=== PATIENT | female | born 1945 | race Caucasian/White ===

== ENCOUNTER 2017-02-22 16:15 | Inpatient (IN) | payer OTHER, MEDICARE ==
[~2017-02-22] VITALS: Ht 167.6 cm; Wt 93.5 kg
[~2017-02-22 16:15] MED LIST: CIPRO500 M1 PO
[2017-02-22 16:41] LABS: ABSOLUTE BASOPHIL COUNT 0 /CUMM (0.0-0.2); ABSOLUTE EOSINOPHIL COUNT 0 /CUMM (0.0-0.7); ABSOLUTE GRANULOCYTE CT 22.3 /CUMM (1.4-6.5); ABSOLUTE LYMPH COUNT 0.4 /CUMM (1.2-3.4); ABSOLUTE MONOCYTE COUNT 0.2 /CUMM (0.10-0.60); BASOPHIL % 0 % (0.0-2.0); EOSINOPHIL % 0.1 % (0-5); HEMATOCRIT 30.7 % (37-47); MEAN CORPUSCULAR HGB 25.5 PG (27.0-31.0); MEAN CORPUSCULAR HGB CONC 31.6 G/DL (33.0-37.0); MEAN CORPUSCULAR VOLUME 80.6 FL (81.0-99.0); MEAN PLATELET VOLUME 7.3 FL (7.4-10.4); PLATELET COUNT 497 /CUMM (130-400); RBC DISTRIBUTION WIDTH 17.1 % (11.5-14.5); WHITE BLOOD CELL COUNT 22.9 /CUMM (4.8-10.8)
[2017-02-22 16:43] LABS: GRANULOCYTE % 97.4 % (42.2-75.2)
--- NOTE | 2017-02-22 16:52 | ED GENERAL ADULT ---
History of Present Illness General Chief Complaint: Fever Stated Complaint: WEAKNESS, FEVERS Source: patient Exam Limitations: no limitations Vital Signs & Intake/Output Vital Signs & Intake/Output Vital Signs Date Time Temp Pulse Resp B/P B/P Pulse O2 O2 Flow FiO2 Mean Ox Delivery Rate 02/22 2046 98.5 86 23 116/61 93 Room Air 02/22 2015 98.7 02/22 1950 Room Air 02/22 1908 99.2 93 22 114/62 96 Room Air 02/22 1752 101.4 02/22 1747 99.0 02/22 1713 99 Room Air 02/22 1658 99.0 130 20 134/60 99 Room Air 02/22 1647 99.0 130 22 134/60 99 Room Air Allergies Coded Allergies: shrimp (Severe, SEVERE HIVES 12/29/16) Reconcile Medications No Known Home Medications Triage Note: PT BIBA FROM HOME FOR WEAKNESS FOR 2 WEEKS WITH BURNING WITH URINATION FOR "MONTH" PT STATES SHE WILL BECOME WOB ON EXERTION BUT IS NO DYSPNEIC AT THIS TIME. PT DENIES CHEST PAIN, PT IS ALERT AND ORIENTED Triage Nurses Notes Reviewed? yes Onset: Gradual Duration: day(s): (34), constant, continues in ED, getting worse Timing: single episode today Injury Environment: home Severity: moderate, severe No Modifying Factors: none LMP (ages 10-50): post menopausal, unknown : No Patient currently breastfeeds: No HPI: 71-year-old female with no reported past medical history presents for evaluation of fever, weakness and dysuria. Patient states the symptoms have been occurring over the past month but much worse over the past few days. She reports burning on urination and urinary frequency and urgency. She also reports sweats chills and body aches. She denies any chest pain, abdominal pain, shortness of breath. No nausea vomiting or diarrhea. She lives at home. She does not take any medications. She denies any back pain. She's not taking any medicine for her symptoms. She is not seen her doctor in years. (Greg Matta) Past History Medical History Any Pertinent Medical History? 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 No (Greg Matta) ED Sepsis Exam Date of Focused Sepsis Exam: 02/22/17 Time of Focused Sepsis Exam: 1800 Sepsis Cardiac Exam: Tachycardia Sepsis Resp Exam: CTA Sepsis Cap Refill Exam: <2 Sec Sepsis Peripheral Pulse Exam: Normal Sepsis Peripheral Pulse Location: Radial Sepsis Skin Color Exam: Pale Skin Temp/Moisture Exam: Warm/Dry (Greg Matta) Review of Systems Review of Systems Constitutional: Reports: fever, malaise, weakness. EENTM: Reports: no symptoms. Respiratory: Reports: no symptoms. Cardiovascular: Reports: no symptoms. GI: Reports: no symptoms. Genitourinary: Reports: see HPI, dysuria, frequency, urgency. Musculoskeletal: Reports: no symptoms. Skin: Reports: no symptoms. Neurological/Psychological: Reports: no symptoms. Hematologic/Endocrine: Reports: no symptoms. Immunologic/Allergic: Reports: no symptoms. All Other Systems: Reviewed and Negative (Greg Matta) Physical Exam Physical Exam General Appearance: well developed/nourished, no apparent distress, alert, awake Head: atraumatic, normal appearance Eyes: Bilateral: normal appearance, PERRL, EOMI. Ears, Nose, Throat: normal pharynx, normal ENT inspection, hearing grossly normal Neck: normal inspection, supple, full range of motion Respiratory: normal breath sounds, chest non-tender, no respiratory distress, lungs clear Cardiovascular: regular rate/rhythm, normal peripheral pulses Peripheral Pulses: 2+ radial (R), 2+ radial (L) Gastrointestinal: normal bowel sounds, soft, non-tender, no organomegaly Rectal: THERE IS MACERATED ERYTHEMATOUS SKIN THE THE SKIN FOLDS OF THE BUTTOCKS. THERE ARE SOME SUPERFICAL PRESSURE ULCCERATIONS IN THE SACRAL AREA. NO SOUROUNDING ERYTHEMA PAIN WITH PALPATION OR DISCHARGE. Back: normal inspection, normal range of motion, no vertebral tenderness Extremities: normal inspection, normal range of motion, BILATERAL OOWER EXTREMITIES HAVE 2+ PITTING EDEMA. NO CALF TENDERNESS Neurologic/Psych: no motor/sensory deficits, awake, alert, oriented x 3 Skin: intact, normal color, warm/dry Core Measures ACS in differential dx? No CVA/TIA Diagnosis: No Sepsis Present: Yes Sepsis Focused Exam Completed? Yes (Greg Matta) Progress Differential Diagnoses I considered the following diagnoses in my evaluation of the patient: [Sepsis, cystitis, pneumonia, cellulitis, electrolyte abnormality] Plan of Care: Orders Procedure Date/time Status Regular Diet 02/23 B Active CBC WITHOUT DIFFERENTIAL 02/23 06 Active BASIC ELECTROLYTES PLUS BUN&CR 02/23 0600 Active Teach/Educate 02/22 2127 Active Pain Treatment and Response 02/22 2127 Active Nutritional Intake, Monitor 02/22 2127 Active Isolation 02/22 2127 Active Patient Care Conference 02/22 2127 Active Activity/Ambulation 02/22 2127 Active Code Status 02/22 2034 Active Pathway - chart 02/22 1943 Active House Staff 02/22 194 Active Patient Data 02/22 194 Active Code Status 02/22 194 Complete Patient Data 02/22 1935 Active LACTIC ACID 02/22 1923 Active ED Holding Orders 02/22 1921 Active Admit to inpatient 02/22 192 Active Vital Signs 02/22 192 Active Code Status 02/22 192 Complete Add-on Test (ER Only) 02/22 1813 Active Intake & Output 02/22 1748 Active CULTURE,URINE 02/22 1733 Active Add-on Test (ER Only) 02/22 1649 Active URINALYSIS 02/22 1633 Complete EKG 02/22 1632 Active TROPONIN LEVEL 02/22 1630 Complete B-TYPE NATRIURETIC PEP (BNP) 02/22 1630 Complete BLOOD CULTURE 02/22 1625 Active LACTIC ACID 02/22 1624 Complete COMPREHENSIVE METABOLIC PANEL 02/22 1624 Complete CBC WITHOUT DIFFERENTIAL 02/22 1624 Complete VTE Mechanical Prophylaxis 02/22 UNK Active Current Medications Sig/Jacobo Start time Last Medication Dose Stop Time Status Admin Ceftriaxone Sodium 1,000 MG DAILY 02/23 1000 AC (Rocephin) Heparin Sodium 25,000 UNIT Q24H 02/22 2215 AC (Porcine) (Heparin) Sodium Chloride 500 ML Acetaminophen 650 MG Q8 02/22 2200 AC (Tylenol) Heparin Sodium 5,000 UNIT Q8 02/22 220 AC (Porcine) Laboratory Tests 02/22/17 1733: Urinalysis LIGHT H, Urine Color YEL, Urine Clarity TURBD H, Urine pH 7.0, Ur Specific [place] 1.020, Urine Protein 100 H, Urine Ketones TRACE H, Urine Nitrite POS H, Urine Bilirubin NEG@ICTO, Urine Urobilinogen 4.0 H, Ur Leukocyte Esterase LARGE H, Ur Microscopic SEDIMENT EXAMINED, Urine RBC 50-75 H, Urine WBC PACKD H, Ur Epithelial Cells MOD H, Urine Bacteria PACKD H, Urine Mucus FEW, Urine Hemoglobin LARGE H, Urine Glucose NEG 02/22/17 1632: Troponin I Cancelled 02/22/17 1630: Anion Gap 17 H, Estimated GFR 44 L, BUN/Creatinine Ratio 20.8, Glucose 108 H, Lactic Acid 2.6 H, Calcium 9.0, Total Bilirubin 1.0, AST 26, ALT 27, Alkaline Phosphatase 126, Troponin I 0.06, Irp-V-Cddzgukpehp Pept 2730 H, Total Protein 6.3, Albumin 2.9 L, Globulin 3.4, Albumin/Globulin Ratio 0.9 L, CBC w Diff MAN DIFF ORDERED, RBC 3.80 L, MCV 80.6 L, MCH 25.5 L, RDW 17.1 H, MPV 7.3 L, Gran % 97.4 H, Lymphocytes % 1.6 L, Monocytes % 0.9 L, Eosinophils % 0.1, Basophils % 0, Absolute Granulocytes 22.3 H, Segmented Neutrophils 94 H, Band Neutrophils 1, Absolute Lymphocytes 0.4 L, Lymphocytes 4 L, Monocytes 1 L, Absolute Monocytes 0.2, Absolute Eosinophils 0, Absolute Basophils 0, Platelet Estimate VERIFIED BY SMEAR, Normochromic RBCs VERIFIED, Anisocytosis 1+, PUBS MCHC 31.6 L, Fld Total RBCs Counted 100 Microbiology 02/22 1733 URINE ROUT: Urine Culture - RECD 02/22 1630 BLOOD: Blood Culture - RECD 02/22 1615 BLOOD: Blood Culture - RECD Patient seen and evaluated. She currently is febrile to 101 and tachycardic. She has very foul-smelling purulent appearing urine. Suspect urosepsis. Blood and urine cultures sent patient started on fluids and IV Tylenol. She is awake blood cell count of 23,000 and an elevated lactic acid. Her chest x-ray is clear. She has some mild renal insufficiency. Urine is showing multiple signs of infection culture added. Patient will be covered with ceftriaxone. She required admission to the hospital for treatment of sepsis. Case discussed with Dr. MCGEE AND LEIDA TheY agrees. Diagnostic Imaging: Viewed by Me: Radiology Read. Discussed w/RAD: Radiology Read. CXR Impression: PATIENT: SIMBA PINEDA PRESENT AGE : 71 PATIENT ACCOUNT NO: [id number] : 45 LOCATION: [facility] ORDERING PHYSICIAN: Greg HA SERVICE DATE: 02/22/17 EXAM TYPE: RAD - XRY- PORTABLE CHEST XRAY EXAMINATION: XR PORTABLE CHEST CLINICAL INFORMATION: Fever. COMPARISON: None TECHNIQUE: Portable frontal view of the chest was obtained. 5: 35 PM FINDINGS: Lungs are clear. No pulmonary vascular congestion. There is no pleural effusion. The heart size is normal. The cardiac and mediastinal contours are normal. There are multilevel degenerative changes of dorsal spine. IMPRESSION: Unremarkable examination. DICTATED BY: Moose Wilosn MD DATE/TIME DICTATED:02/22/171757 SENIOR ELECTRICAL ENGINEER:BIANCA DATE/TIME TRANSCRIBED:1757 CONFIDENTIAL, DO NOT COPY WITHOUT APPROPRIATE AUTHORIZATION. Initial ED EKG: SINUS TACH, RBBB, LAFB (Greg Matta) Departure Departure Disposition: STILL A PATIENT Condition: Stable Clinical Impression Primary Impression: Sepsis Qualifiers: Sepsis type: sepsis due to unspecified organism Qualified Code: A41.9 - Sepsis, unspecified organism Secondary Impressions: Acute cystitis, Lactic acid acidosis, Leukocytosis Referrals: Alexei Echevarria MD (PCP/Family) Departure Forms: Customer Survey General Discharge Information Prescriptions: Current Visit Scripts No Known Home Medications Admission Note Spoke With: Alexei Echevarria MD Documentation of Exam: Documentation of any treatments & extenuating circumstances including Concerns Regarding Discharge (functional status, medication knowledge or non-compliance, living conditions, etc.) that warrant an admission rather than observation: [ Patient is septic. She will require IV fluids, IV antibiotics, serial labs, follow-up cultures, IV antipyretics, monitoring of vital signs] (Greg Matta) PA/ASSISTANT EXECUTIVE HOUSEKEEPER Co-Sign Statement Statement: ED Attending supervision documentation- [] I saw and evaluated the patient. I have also reviewed all the pertinent lab results and diagnostic results. I agree with the findings and the plan of care as documented in the PA's/ASSISTANT EXECUTIVE HOUSEKEEPER's documentation. [X] I have reviewed the ED Record and agree with the PA's/ASSISTANT EXECUTIVE HOUSEKEEPER's documentation. [] Additions or exceptions (if any) to the PAs/ASSISTANT EXECUTIVE HOUSEKEEPER's note and plan are summarized below: [] (Leida ROTH,Ashley) Critical Care Note Critical Care Note Critical Care Time: non-applicable (Andrew HA,Greg)
--- NOTE | 2017-02-22 18:02 | RADIOLOGY REPORT ---
EXAMINATION: XR PORTABLE CHEST CLINICAL INFORMATION: Fever. COMPARISON: None TECHNIQUE: Portable frontal view of the chest was obtained. 5:35 PM FINDINGS: Lungs are clear. No pulmonary vascular congestion. There is no pleural effusion. The heart size is normal. The cardiac and mediastinal contours are normal. There are multilevel degenerative changes of dorsal spine. IMPRESSION: Unremarkable examination.
--- NOTE | 2017-02-22 19:37 | History & Physical ---
See Addendum Julio ROTH,Tess 02/22/171935: General Information and HPI MD Statement: I have seen and personally examined SIMBA PINEDA and documented this H&P. The patient is a 71 year old F who presented with a patient stated chief complaint of [burining urination]. Source of Information: patient Exam Limitations: no limitations History of Present Illness: The patient is 71-year-old female with past medical history of chronic bilateral lower extremity edema. She presented to [place] ED on 02/22 with presenting complaint of burning during urination and increased frequency and urgency. Patient was in usual state of health until about 2 days ago when she started experiencing generalized weakness. She had an episode of burning urination as well. Lately patient has been experiencing increased frequency and urgency. Today patient was sitting on the toilet and felt so weak that she could not lift herself up. Her brother came to check on her because she was not picking up and found her on sitting on the toilet and called ambulance. Patient also complains of lower abdominal pain which she experienced only today and has resolved after coming to ED. She endorses decreased appetite and decreased oral intake for past 2 days. No discharge or pain while urination. Denies hematuria. As per patient she hadn't been experiencing weakness and lethargy and had another episode of feeling so tired that she could not get up from the bathroom few weeks ago, she was helped up by her nephew. Denies any fevers chills nausea vomiting and change in bowel movement. Patient has chronic bilateral lower extremity edema and has never been worked up for that. Patient reports getting winded easily after exertion. Currently patient is not on any medications. Of note patient was diagnosed of UTI in December 2016 and she was treated with ciprofloxacin. She underwent CT abdomen and pelvis with IV contrast which showed multiple bilateral renal cysts, small liver cyst, osteoarthritis of the joints, several nonspecific lucencies in the spine largest measuring 9 mm in the S1. 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 Psychosocial History Where do you live? Home Who Do You Live With? self Services at Home: None Primary Language: Italian Smoking Status: Never Smoked ETOH Use: occasional use Illicit Drug Use: denies illicit drug use Functional Ability ADLs Independent: dressing, eating, toileting, bathing. Ambulation: cane IADLs Independent: shopping, housework, finances, food prep, telephone, transportation , medication admin. 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 Denies: chills, fever. Cardiovascular: Denies: chest pain, orthopena. Respiratory: Denies: see HPI, orthopnea, stridor. GI: Reports: no symptoms. Genitourinary: Reports: frequency. Denies: discharge, hematuria, hesitation, nocturia. Musculoskeletal: Reports: no symptoms. Exam & Diagnostic Data Last 24 Hrs of Vital Signs/I&O Vital Signs Date Time Temp Pulse Resp B/P B/P Pulse O2 O2 Flow FiO2 Mean Ox Delivery Rate 02/22 1908 99.2 93 22 114/62 96 Room Air 02/22 1752 101.4 02/22 1747 99.0 02/22 1713 99 Room Air 02/22 1658 99.0 130 20 134/60 99 Room Air 02/22 1647 99.0 130 22 134/60 99 Room Air Physical Exam General Appearance Alert, Oriented X3, Cooperative, No Acute Distress Skin No Rashes HEENT Atraumatic, PERRLA, dry mucous memberanes Neck Supple, No JVD, No thryomegaly Cardiovascular Normal S1, Normal S2 Lungs Clear to Auscultation, Normal Air Movement Abdomen Normal Bowel Sounds, Soft, No Tenderness, No Hepatospenomegaly Neurological Normal Speech Extremities b/l 3+ lower extremity edema, extending upto thighs, more so on R Last 24 Hrs of Labs/Caleb: Laboratory Tests 02/22/17 1733: Urinalysis LIGHT H, Urine Color YEL, Urine Clarity TURBD H, Urine pH 7.0, Ur Specific [place] 1.020, Urine Protein 100 H, Urine Ketones TRACE H, Urine Nitrite POS H, Urine Bilirubin NEG@ICTO, Urine Urobilinogen 4.0 H, Ur Leukocyte Esterase LARGE H, Ur Microscopic SEDIMENT EXAMINED, Urine RBC 50-75 H, Urine WBC PACKD H, Ur Epithelial Cells MOD H, Urine Bacteria PACKD H, Urine Mucus FEW, Urine Hemoglobin LARGE H, Urine Glucose NEG 02/22/17 1632: Troponin I Cancelled 02/22/17 1630: Anion Gap 17 H, Estimated GFR 44 L, BUN/Creatinine Ratio 20.8, Glucose 108 H, Lactic Acid 2.6 H, Calcium 9.0, Total Bilirubin 1.0, AST 26, ALT 27, Alkaline Phosphatase 126, Troponin I 0.06, Vdl-D-Swgcpajccvu Pept 2730 H, Total Protein 6.3, Albumin 2.9 L, Globulin 3.4, Albumin/Globulin Ratio 0.9 L, CBC w Diff MAN DIFF ORDERED, RBC 3.80 L, MCV 80.6 L, MCH 25.5 L, RDW 17.1 H, MPV 7.3 L, Gran % 97.4 H, Lymphocytes % 1.6 L, Monocytes % 0.9 L, Eosinophils % 0.1, Basophils % 0, Absolute Granulocytes 22.3 H, Segmented Neutrophils 94 H, Band Neutrophils 1, Absolute Lymphocytes 0.4 L, Lymphocytes 4 L, Monocytes 1 L, Absolute Monocytes 0.2, Absolute Eosinophils 0, Absolute Basophils 0, Platelet Estimate VERIFIED BY SMEAR, Normochromic RBCs VERIFIED, Anisocytosis 1+, PUBS MCHC 31.6 L, Fld Total RBCs Counted 100 Microbiology 02/22 1733 URINE ROUT: Urine Culture - RECD 02/22 1630 BLOOD: Blood Culture - RECD 02/22 1615 BLOOD: Blood Culture - RECD Diagnostic Data CXR Results FINDINGS: Lungs are clear. No pulmonary vascular congestion. There is no pleural effusion. The heart size is normal. The cardiac and mediastinal contours are normal. There are multilevel degenerative changes of dorsal spine. IMPRESSION: Unremarkable examination. Other Results CT abdomen and pelvis with IV contrast December 2016 multiple bilateral renal cysts, small liver cyst, osteoarthritis of the joints, several nonspecific lucencies in the spine largest measuring 9 mm in the S1. Assessment/Plan Assessment: The patient is 71-year-old female with past medical history of chronic bilateral lower extremity edema. She presented to [place] ED on 02/22 with presenting complaint of burning during urination and increased frequency and urgency. -VS 99.0 MAXIMUM TEMPERATURE of 101.4. Heart rate 130, BP on presentation 134/ 62 -Pertinent labs FSH 9.7/30.7 WBC count to 2.9 platelets 492 MCV , MCH 25, bands 1, anion gap 17, BUN 25 creatinine 1.2 baseline 1.0, BNP 2730, lactic acid 2.6 -UA turbid positive for nitrates and large leukoesterase packed with WBCs and bacteria moderate epithelial cells -In ED patient received 2 L of normal saline, IV Rocephin and IV Tylenol The patient is being admitted to general medicine floor and is being treated and evaluated for following conditions #Sepsis secondary to urological origin Patient presentation along with elevated white count, lactic acidosis, temperature 101.4,HR 130 plus UA picture is consistent with sepsis secondary to urological origin. Meets SIRS crieteria. CT scan done in December 2016 showed multiple bilateral renal cysts. -Monitor fever and WBC curve -IV ceftriaxone -Follow blood culture and urine culture -Tylenol for fever #SEN Patient presenting creatinine of 1.2 basline 0.9 likely secondary to dehydration and sepsis of urological origin. She received 2 L of normal saline in ED -Holding off IVF for now, cardiac status unknown -Monitor creatinine closely #Lactic acidosis Patient presenting with lactic acid of 2.6 and anion gap of 17. Likely secondary to sepsis -Repeat lactate after 3 hours #Anemia Patient is presenting with H/H of 9.7/30.7 in setting of low MCV and MCH likely iron deficiency -Iron studies, TIBC, ferritin, B10 and B12 anemia workup -Guaiac all stools -Consider iron supplementation after workup #Thrombocytosis Likely reactive to sepsis -Monitor platelet count is #Bilateral lower extremity edema extending upto thighs more so on R Patient has history of chronic lower extremity edema, proBNP 2730 -Echocardiogram to rule out CHF -Lower Extremity Doppler to rule out DVT #Nonspecific lucencies in the spine largest measuring 9 mm in the S1. Patient will require further evaluation with can be done as an outpatient basis. #DNR/DNI/ heart healthy diet/DVT prophylaxis with SQ heparin As Ranked By This Provider Problem List: 1. UTI (urinary tract infection) 2. Sepsis Qualifiers Sepsis type: sepsis due to unspecified organism Qualified Code: A41.9 - Sepsis, unspecified organism 3. Lactic acid acidosis 4. Leukocytosis Core Measures/Misc (10/23) Acute Coronary Syndrome ACS Diagnosis: No Congestive Heart Failure Congestive Heart Failure Diagnosis No Cerebrovascular Accident CVA/TIA Diagnosis: No VTE (View Protocol) VTE Risk Factors Age>40 No Mechanical VTE Prophylaxis d/t N/A MechProphylax Ordered No VTE Pharm Prophylaxis d/t NA PharmProphylax ordered Sepsis (View protocol) Sepsis Present: Yes Jose Francisco Morris 02/22/172054: Resident Review Statement Resident Statement: discussed with accounting intern Other Findings: 71-year-old woman with past medical history of UTI in December 2016 treated with with Cipro. She had a CT abdomen and pelvis with IV contrast at that time that showed multiple bilateral renal cysts, small liver cyst, osteoarthritis of the joints, several nonspecific lucencies in the spine largest measuring 9 mm in the S1. This time she presented to ER with chief complaint of feeling weak and tired for last 2-3 days and burning micturition only 1 time 2 days ago. She had urinary frequency and urgency. This morning around 11 AM she went to bathroom and after urination was not able to get up from toilet and was afraid of falling. She was alone at home at that time. According to patient she did not feel any burning micturition but was having lower abdominal pain. She denies any fever and chills. Also reports poor appetite and was not drinking enough water. She denies any nausea, vomiting, dizziness or lightheadedness, chest pain or discomfort, shortness of breath, diarrhea or constipation. She does report bilateral lower extremity swelling but it's not new. She is very noncompliant and haven't seen PCP for long time. She does not see any specialists. She lives at home with her sister. She is unmarried. 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 She is anxious to go home and does not want to stay in hospital longer. ED course: Upon arrival her temperature was 99 that went up to 101.4. Pulse 1: 30, respiratory rate 22, blood pressure 134/60 and oxygen saturation 99% on room air. Pertinent labs are WBC 22.9 with no bands, H&H 9.7/30.7 with MCV 80.6, platelet count 497, BUN 25, creatinine 1.2 (never been told about kidney disease ), lactic acid 2.6, Pro BNP 2730. UA was turbid with positive urine nitrite and leukocyte esterase. Packed urine WBCs. In ER she got 2 L of normal saline bolus, 1 g IV Tylenol and ceftriaxone 1 g 1. Blood cultures 2 and urine cultures were obtained. Physical exam: She is alert, awake and oriented 3. Dry mucous membranes. Heart: Tachycardia, no murmurs. Lungs: Clear to auscultation. Abdomen: Soft, nondistended, nontender with positive bowel sounds. No CVA tenderness bilaterally. 2+ Bilateral lower extremities edema with dry skin. Problem list 1. Sepsis of urological procedure (fever, tachycardia, elevated WBC count, dirty urine) 2. Microcytic anemia. stable 3. Thrombocytosis likely due to sepsis 4. Acute kidney injury. BUN/creatinine 25/1.2. Likely due to dehydration. Does not know if she has any kidney disease. Haven't seen PCP for a long time. 5. Anion gap metabolic acidosis 6. Elevated proBNP 7. Bilateral lower extremity swelling. Plan * Admission to general medicine floor * Monitor vitals closely * Continue ceftriaxone * Follow blood and urine cultures * She got 2 L of normal saline bolus in ER. Will hold IV fluids for now given bilateral lower extremity swelling and elevated proBNP. Encourage oral intake of water * Will repeat kidney function in the morning * Avoid nephrotoxins * Trend LA * She also will need outpatient cardiac workup like echocardiogram * B/L lower extremity Doppler US to rule out DVT Regular diet Subcutaneous heparin for DVT prophylaxis DNR/DNI
--- NOTE | 2017-02-22 20:25 | Admission Certification ---
Admission Certification Certification Statement - As attending physician, I certify that at the time of - admission, based on clinical presentation, severity of - symptoms, need for further diagnostic testing and - therapeutic interventions, and risk of adverse outcomes - without in-hospital treatment, in my clinical assessment, - this patient requires an acute hospital stay for a minimum - of two nights or longer. I have also considered psychsocial - factors such as support system, advanced age, financial - issues, cognitive issues, and failed out-patient treatments, - past re-admission history, safety of patient, and lack of - compliance as applicable. Specific rationale supporting this admission is: Urinary tract infection and possible sepsis of urological origin anemia
--- NOTE | 2017-02-22 20:29 | PN- Att Addend ---
Attending Addendum Attending Brief Note 71-year-old white single female living with one sister was diagnosed with uterine cancer recently another sister not too long ago several comorbidities, all the sisters never seek medical attention. Patient for the last 2 weeks to a month as not been feeling well and burning with urination increased frequency urgency getting weaker fevers some sweats and chills comes to the ER with this foul-smelling urine with a sample was obtained also was pancultured. In the emergency room her temp max was 101.4 was a little tachycardic white count is 22,900 BUN 25 creatinine 1.2, lactic acid 2.6 also a little anemic hemoglobin 9.7 hematocrit 30.7. Will be admitted after the cultures broad-spectrum antibiotics will be given gentle hydration follow-up the labs closely Laboratory Tests 02/22/17 1733: Urinalysis LIGHT H, Urine Color YEL, Urine Clarity TURBD H, Urine pH 7.0, Ur Specific [place] 1.020, Urine Protein 100 H, Urine Ketones TRACE H, Urine Nitrite POS H, Urine Bilirubin NEG@ICTO, Urine Urobilinogen 4.0 H, Ur Leukocyte Esterase LARGE H, Ur Microscopic SEDIMENT EXAMINED, Urine RBC 50-75 H, Urine WBC PACKD H, Ur Epithelial Cells MOD H, Urine Bacteria PACKD H, Urine Mucus FEW, Urine Hemoglobin LARGE H, Urine Glucose NEG 02/22/17 1632: Troponin I Cancelled 02/22/17 1630: Anion Gap 17 H, Estimated GFR 44 L, BUN/Creatinine Ratio 20.8, Glucose 108 H, Lactic Acid 2.6 H, Calcium 9.0, Total Bilirubin 1.0, AST 26, ALT 27, Alkaline Phosphatase 126, Troponin I 0.06, Afa-D-Krfbnzmvasy Pept 2730 H, Total Protein 6.3, Albumin 2.9 L, Globulin 3.4, Albumin/Globulin Ratio 0.9 L, CBC w Diff MAN DIFF ORDERED, RBC 3.80 L, MCV 80.6 L, MCH 25.5 L, RDW 17.1 H, MPV 7.3 L, Gran % 97.4 H, Lymphocytes % 1.6 L, Monocytes % 0.9 L, Eosinophils % 0.1, Basophils % 0, Absolute Granulocytes 22.3 H, Segmented Neutrophils 94 H, Band Neutrophils 1, Absolute Lymphocytes 0.4 L, Lymphocytes 4 L, Monocytes 1 L, Absolute Monocytes 0.2, Absolute Eosinophils 0, Absolute Basophils 0, Platelet Estimate VERIFIED BY SMEAR, Normochromic RBCs VERIFIED, Anisocytosis 1+, PUBS MCHC 31.6 L, Fld Total RBCs Counted 100 Microbiology Date/Time Procedure - Status Source Growth 02/22 173 Urine Culture - RECD URINE ROUT 02/22 1630 Blood Culture - RECD BLOOD 02/22 1615 Blood Culture - RECD BLOOD Vital Signs Date Time Temp Pulse Resp B/P B/P Pulse O2 O2 Flow FiO2 Mean Ox Delivery Rate 02/22 2015 98.7 02/22 1950 Room Air 02/22 1908 99.2 93 22 114/62 96 Room Air 02/22 1752 101.4 02/22 1747 99.0 02/22 1713 99 Room Air 02/22 1658 99.0 130 20 134/60 99 Room Air 02/22 1647 99.0 130 22 134/60 99 Room Air
--- NOTE | 2017-02-22 21:49 | ULTRASOUND REPORT ---
EXAMINATION: US TRIPLEX OF LOWER EXTREMITIES, BILATERAL CLINICAL INFORMATION: Lower extremity edema. Swelling. COMPARISON: None TECHNIQUE: Color-flow triplex imaging with spectral analysis and compression Doppler were performed on the lower extremities. FINDINGS: Right lower extremity: There is nonocclusive thrombus in the right proximal femoral vein. The remainder of the veins, popliteal through calf veins, are normal. Left lower extremity: No evidence of deep vein thrombosis from groin through the calf. There is no Murphy's cyst. IMPRESSION: Right lower extremity: Nonocclusive thrombus in the right proximal femoral vein. Left lower extremity: No evidence of deep vein thrombosis. This critical result was discussed with Jose Francisco Araujo on 02/22/2017, 9:45 PM and it was ascertained that the content and urgency of the report was understood at the time of direct communication.
--- NOTE | 2017-02-22 21:56 | Event Note ---
Event Note Event Note: I got a call from [facility] at 9:44 PM about results of her bilateral lower extremity Doppler ultrasound. She has right femoral vein, partially occluded, DVT. Left leg Doppler ultrasound is normal. We will start her on heparin drip after doing guaiac stool. Dr. Echevarria was updated and he agreed with the plan. This is an unprovoked DVT. There is no history of immobilization, trauma, surgery, hormone replacement therapy. She needs Outpatient workup to rule out any occult malignancy, heart failure and inherited thrombophilia or any myeloproliferative disorder though less likely. 11:30 PM: Her stool is guaiac positive. H&H is 9.7/30.7. Informed Dr. Echevarria. He is okay to start her on heparin drip for now and watch her hemoglobin or any active bleeding. She might need an IVC filter.
--- NOTE | 2017-02-23 07:33 | PN- Housestaff ---
Subjective Follow-up For: Sepsis of urologic origin Right femoral vein DVT Micropsychotic anemia Thrombocytosis Acute kidney injury Lactic acidosis elevated proBNP Complaints: pain scale (0-10) Subjective: She was seen and examined this morning. She is alert awake and oriented to time place and person. She continues to report generalized weakness with lower extremity swelling. Patient reports burning urination, frequency and urgency. 2 episodes of fever in the emergency room. Denies any flank pain. She is on IV heparin for right lower extremity DVT. Stool guaiac was positive Denies any chest pain, short of breath, palpitations, nausea, vomiting, abdominal pain Reports 2 episodes of loose watery stool this afternoon. Review of Systems Constitutional: Reports: see HPI. Objective Last 24 Hrs of Vital Signs/I&O Vital Signs Date Time Temp Pulse Resp B/P B/P Pulse O2 O2 Flow FiO2 Mean Ox Delivery Rate 02/23 1506 103.0 90 20 143/69 96 Room Air 02/23 1451 103.0 90 02/23 1402 102.2 02/23 1059 97.0 80 18 150/70 94 Room Air 02/23 0930 96 Room Air Room Air 02/23 0930 98.9 78 18 118/73 97 Room Air Room Air 02/23 0730 98 Room Air Room Air 02/23 0605 97.5 79 20 113/54 97 Room Air 02/22 2350 96.3 80 20 119/58 99 Room Air 02/22 2047 98.5 86 23 116/61 93 Room Air 02/22 2016 98.7 02/22 1950 Room Air 02/22 1908 99.2 93 22 114/62 96 Room Air 02/22 1752 101.4 02/22 1747 99.0 02/22 1713 99 Room Air 02/22 1658 99.0 130 20 134/60 99 Room Air 02/22 1647 99.0 130 22 134/60 99 Room Air Intake & Output 02/23 1600 02/23 0800 02/23 0000 Intake Total 100 Output Total 700 450 Balance -600 -450 Intake, Oral 100 Number 8 Bowel Movements Output, Stool 500 Output, Urine 200 450 Patient 66.224 kg 67.812 kg 65.771 kg Weight Weight Standing Scale Chair scale Reported by Patient Measurement Method Physical Exam General Appearance: Alert, Oriented X3, Cooperative, No Acute Distress Other Physical Findings: Skin No Rashes HEENT Atraumatic, PERRLA, dry mucous memberanes Neck Supple, No JVD, No thryomegaly Cardiovascular Normal S1, Normal S2 Lungs Clear to Auscultation, Normal Air Movement Abdomen Normal Bowel Sounds, Soft, No Tenderness, No Hepatospenomegaly Neurological Normal Speech Extremities b/l 3+ lower extremity edema, extending upto thighs, more so on Right Current Medications: Current Medications Sig/Jacobo Start time Last Medication Dose Route Stop Time Status Admin Acetaminophen 0 .STK-MED ONE 02/23 1359 DC PO Acetaminophen 0 .STK-MED ONE 02/22 2341 DC PO Acetaminophen 650 MG Q8 02/22 2200 AC 02/23 PO 1402 Acetaminophen 0 .STK-MED ONE 02/22 1747 DC IV Acetaminophen 1,000 MG ONCE ONE 02/22 1700 DC 02/22 N/A 1 UNIT IV 02/22 1714 1747 Ceftriaxone Sodium 1,000 MG DAILY 02/23 1000 AC 02/23 IV 0912 Ceftriaxone Sodium 0 .STK-MED ONE 02/22 1904 DC .ROUTE Ceftriaxone Sodium 1,000 MG ONCE ONE 02/22 1745 DC 02/22 IV 02/22 1746 1914 Heparin Sodium 0 .STK-MED ONE 02/23 1006 DC (Porcine) .ROUTE Heparin Sodium 5,000 UNIT ONCE ONE 02/23 1000 DC 02/23 (Porcine) IV 02/23 1001 1000 Heparin Sodium 25,000 UNIT Q24H 02/22 2215 AC 02/23 (Porcine) IV 0032 Sodium Chloride 500 ML Heparin Sodium 5,000 UNIT Q8 02/22 2200 DC (Porcine) SC Influenza Virus 0.5 ML ONCE ONE 02/23 1300 DC Vaccine IM 02/23 1301 Sodium Chloride 1,000 ML BOLUS ONE 02/22 1745 DC 02/22 IV 02/22 1844 1857 Sodium Chloride 1,000 ML BOLUS ONE 02/22 1700 DC 02/22 IV 02/22 1759 1710 Last 24 Hrs of Lab/Caleb Results Last 24 Hrs of Labs/Mics: Laboratory Tests 02/23/17 0638: Anion Gap 11, Estimated GFR > 60, BUN/Creatinine Ratio 31.1 H, APTT 32, CBC w Diff MAN DIFF ORDERED, RBC 3.41 L, MCV 81.3, MCH 26.0 L, RDW 17.5 H, MPV 7.9, Gran % 94.4 H, Lymphocytes % 3.3 L, Monocytes % 2.1, Eosinophils % 0.1, Basophils % 0.1, Absolute Granulocytes 20.0 H, Segmented Neutrophils 86 H, Band Neutrophils 11 H, Absolute Lymphocytes 0.7 L, Lymphocytes 3 L, Absolute Monocytes 0.5, Absolute Eosinophils 0, Absolute Basophils 0, Platelet Estimate ADEQUATE, Hypochromic-Microcytic 2+, Anisocytosis 1+, PUBS MCHC 31.9 L 02/23/17 0058: Lactic Acid 0.9 02/22/17 1733: Urinalysis LIGHT H, Urine Color YEL, Urine Clarity TURBD H, Urine pH 7.0, Ur Specific [place] 1.020, Urine Protein 100 H, Urine Ketones TRACE H, Urine Nitrite POS H, Urine Bilirubin NEG@ICTO, Urine Urobilinogen 4.0 H, Ur Leukocyte Esterase LARGE H, Ur Microscopic SEDIMENT EXAMINED, Urine RBC 50-75 H, Urine WBC PACKD H, Ur Epithelial Cells MOD H, Urine Bacteria PACKD H, Urine Mucus FEW, Urine Hemoglobin LARGE H, Urine Glucose NEG 02/22/17 1632: Troponin I Cancelled 02/22/17 1630: Anion Gap 17 H, Estimated GFR 44 L, BUN/Creatinine Ratio 20.8, Glucose 108 H, Lactic Acid 2.6 H, Calcium 9.0, Total Bilirubin 1.0, AST 26, ALT 27, Alkaline Phosphatase 126, Troponin I 0.06, Thr-X-Odumfdijrrk Pept 2730 H, Total Protein 6.3, Albumin 2.9 L, Globulin 3.4, Albumin/Globulin Ratio 0.9 L, CBC w Diff MAN DIFF ORDERED, RBC 3.80 L, MCV 80.6 L, MCH 25.5 L, RDW 17.1 H, MPV 7.3 L, Gran % 97.4 H, Lymphocytes % 1.6 L, Monocytes % 0.9 L, Eosinophils % 0.1, Basophils % 0, Absolute Granulocytes 22.3 H, Segmented Neutrophils 94 H, Band Neutrophils 1, Absolute Lymphocytes 0.4 L, Lymphocytes 4 L, Monocytes 1 L, Absolute Monocytes 0.2, Absolute Eosinophils 0, Absolute Basophils 0, Platelet Estimate VERIFIED BY SMEAR, Normochromic RBCs VERIFIED, Anisocytosis 1+, PUBS MCHC 31.6 L, Fld Total RBCs Counted 100 Microbiology 02/23 1452 STOOL: Clostridium difficile Toxin A & B - ORD 02/22 1733 URINE ROUT: Urine Culture - RES GRAM NEGATIVE RODS 02/22 1630 BLOOD: Blood Culture - RES GRAM POSITIVE ADEN 02/22 1615 BLOOD: Blood Culture - RES GRAM POSITIVE ADEN Assessment/Plan Assessment: The patient is 71-year-old female with past medical history of chronic bilateral lower extremity edema. She presented to [facility] on 02/22 with presenting complaint of burning during urination and increased frequency and urgency. VS 99.0 MAXIMUM TEMPERATURE of 101.4. Heart rate 130, BP on presentation 134/62 Pertinent labs -hb 9.7/30.7 WBC count to 22.9 platelets 492 bands 1, anion gap 17, BUN 25 creatinine 1.2 baseline 1.0, BNP 2730, lactic acid 2.6 -UA turbid positive for nitrates and large leukoesterase packed with WBCs and bacteria moderate epithelial cells -In ED patient received 2 L of normal saline, IV Rocephin and IV Tylenol The patient was admitted to general medicine floor and is being treated and evaluated for following conditions #Sepsis secondary to urological origin Patient presented with elevated white count, lactic acidosis, temperature 101.4, HR 130 plus UA picture is consistent with sepsis secondary to urological origin. Meets SIRS crieteria. CT scan done in December 2016 showed multiple bilateral renal cysts. -Monitor fever and WBC curve -IV ceftriaxone day1 -Blood culture positive for gram-positive aden pending sensitivities -urine culture positive for gram-negative aden pending sensitivities -Tylenol for fever -Infectious disease specialist was consulted -We'll follow up ID and adjust antibiotics accordingly -Patient still continues to mount fever. Right femoral vein DVT Given her dilated lower extremity swelling , ultrasound lower extremities was done to rule out DVT. she was found to have Nonocclusive thrombus in the right proximal femoral vein. * Started on IV heparin drip * Vascular surgery consulted * Monitor hemoglobin closely * Stool guaiac-positive * Possible consideration for IVC filter in future Diarrhea Patient reports 5 loose water stools since presenting to ER. Denies any nausea, vomiting, abdominal pain. No sick contact exposure. She is started on IV ceftriaxone for sepsis of urologic origin. Most possibly viral gastroenteritis versus C. difficile diarrhea from antibiotics. * C. difficile toxin * Follow-up C. difficile #SEN Patient presenting creatinine of 1.2-- basline 0.9 likely secondary to dehydration and sepsis of urological origin. She received 2 L of normal saline in ED -Holding off IVF for now. -cr improved 0.9 after 2 L of hydration -Monitor creatinine closely - avoid nephrotoxins #Lactic acidosis Patient presenting with lactic acid of 2.6 and anion gap of 17. Likely secondary to sepsis -Repeat lactate after 3 hours- 0.9 #Anemia Patient is presenting with H/H of 9.7/30.7 in setting of low MCV and MCH likely iron deficiency -Iron studies, TIBC, ferritin, B10 and B12 anemia workup -Guaiac all stools -Consider iron supplementation after workup #Thrombocytosis Likely reactive to sepsis -Monitor platelet count #Bilateral lower extremity edema extending upto thighs more so on Right Patient has history of chronic lower extremity edema, proBNP 2730 -Echocardiogram to rule out CHF #Nonspecific lucencies in the spine largest measuring 9 mm in the S1. Patient will require further evaluation with can be done as an outpatient basis. DNR/DNI heart healthy diet DVT prophylaxis with SQ heparin Problem List: 1. Sepsis 2. Leukocytosis 3. Lactic acid acidosis 4. Acute cystitis 5. Hypokalemia 6. Anemia Pain Ratin Pain Location: n/a Pain Goal: Remain pain free Pain Plan: mahesh Tomorrow's Labs & Rationales: cbc bep
[2017-02-23 08:18] LABS: PTT 32 SEC (25-37)
[2017-02-23 08:22] LABS: ABSOLUTE BASOPHIL COUNT 0 /CUMM (0.0-0.2); ABSOLUTE EOSINOPHIL COUNT 0 /CUMM (0.0-0.7); ABSOLUTE LYMPH COUNT 0.7 /CUMM (1.2-3.4); ABSOLUTE MONOCYTE COUNT 0.5 /CUMM (0.10-0.60); BASOPHIL % 0.1 % (0.0-2.0); EOSINOPHIL % 0.1 % (0-5); GRANULOCYTE % 94.4 % (42.2-75.2); HEMATOCRIT 27.7 % (37-47); MEAN CORPUSCULAR HGB CONC 31.9 G/DL (33.0-37.0); MEAN CORPUSCULAR VOLUME 81.3 FL (81.0-99.0); MEAN PLATELET VOLUME 7.9 FL (7.4-10.4); PLATELET COUNT 414 /CUMM (130-400); RBC DISTRIBUTION WIDTH 17.5 % (11.5-14.5); RED BLOOD CELL CT 3.41 /CUMM (4.20-5.40); WHITE BLOOD CELL COUNT 21.2 /CUMM (4.8-10.8)
--- NOTE | 2017-02-23 13:03 | PN- Att Addend ---
Attending Addendum Attending Brief Note Patient feeling a little better, looks pale Temp max 101.4 afebrile this morning patient had ultrasound of her leg which shows a DVT H and started on heparin monitoring H&H closely, she had a positive stool for occult blood. Will get vascular consult, in case we need to hold anticoagulation and use any other procedure to prevent clots to travel No major changes on physical if the urine culture showed more than 100,000 colonies of gram-negative rads to blood culture showed gram-positive rods. Will get an infectious disease consult regarding the results of the cultures and actually is in the proper antibiotic treatment. When he 8 creatinine 0.9 white count is 21,200 down from 22,900 and myoglobin 8.8 hematocrit 27.7. 24 TOTALS 02/23 0000 02/22 0000 Intake Total Output Total Balance Patient 145 lb Weight Weight Reported by Patient Measurement Method Current Medications Sig/Jacobo Start time Last Medication Dose Route Stop Time Status Admin Acetaminophen 0 .STK-MED ONE 02/22 2341 DC PO Acetaminophen 650 MG Q8 02/22 2200 AC 02/22 PO 2339 Acetaminophen 0 .STK-MED ONE 02/22 1747 DC IV Acetaminophen 1,000 MG ONCE ONE 02/22 1700 DC 02/22 N/A 1 UNIT IV 02/22 1714 1747 Ceftriaxone Sodium 1,000 MG DAILY 02/23 1000 AC 02/23 IV 0912 Ceftriaxone Sodium 0 .STK-MED ONE 02/22 1904 DC .ROUTE Ceftriaxone Sodium 1,000 MG ONCE ONE 02/22 1745 DC 02/22 IV 02/22 1746 1914 Heparin Sodium 0 .STK-MED ONE 02/23 1006 DC (Porcine) .ROUTE Heparin Sodium 5,000 UNIT ONCE ONE 02/23 1000 DC 02/23 (Porcine) IV 02/23 1001 1000 Heparin Sodium 25,000 UNIT Q24H 02/22 2215 AC 02/23 (Porcine) IV 0032 Sodium Chloride 500 ML Heparin Sodium 5,000 UNIT Q8 02/22 2200 DC (Porcine) SC Influenza Virus 0.5 ML ONCE ONE 02/23 1300 DC Vaccine IM 02/23 1301 Sodium Chloride 1,000 ML BOLUS ONE 02/22 1745 DC 02/22 IV 02/22 1844 1857 Sodium Chloride 1,000 ML BOLUS ONE 02/22 1700 DC 02/22 IV 02/22 1759 1710 Laboratory Tests 02/23/17 0638: Anion Gap 11, Estimated GFR > 60, BUN/Creatinine Ratio 31.1 H, APTT 32, CBC w Diff MAN DIFF ORDERED, RBC 3.41 L, MCV 81.3, MCH 26.0 L, RDW 17.5 H, MPV 7.9, Gran % 94.4 H, Lymphocytes % 3.3 L, Monocytes % 2.1, Eosinophils % 0.1, Basophils % 0.1, Absolute Granulocytes 20.0 H, Segmented Neutrophils 86 H, Band Neutrophils 11 H, Absolute Lymphocytes 0.7 L, Lymphocytes 3 L, Absolute Monocytes 0.5, Absolute Eosinophils 0, Absolute Basophils 0, Platelet Estimate ADEQUATE, Hypochromic-Microcytic 2+, Anisocytosis 1+, PUBS MCHC 31.9 L 02/23/17 0058: Lactic Acid 0.9 02/22/17 1733: Urinalysis LIGHT H, Urine Color YEL, Urine Clarity TURBD H, Urine pH 7.0, Ur Specific [place] 1.020, Urine Protein 100 H, Urine Ketones TRACE H, Urine Nitrite POS H, Urine Bilirubin NEG@ICTO, Urine Urobilinogen 4.0 H, Ur Leukocyte Esterase LARGE H, Ur Microscopic SEDIMENT EXAMINED, Urine RBC 50-75 H, Urine WBC PACKD H, Ur Epithelial Cells MOD H, Urine Bacteria PACKD H, Urine Mucus FEW, Urine Hemoglobin LARGE H, Urine Glucose NEG 02/22/17 1632: Troponin I Cancelled 02/22/17 1630: Anion Gap 17 H, Estimated GFR 44 L, BUN/Creatinine Ratio 20.8, Glucose 108 H, Lactic Acid 2.6 H, Calcium 9.0, Total Bilirubin 1.0, AST 26, ALT 27, Alkaline Phosphatase 126, Troponin I 0.06, Pix-K-Pftjmjjfaur Pept 2730 H, Total Protein 6.3, Albumin 2.9 L, Globulin 3.4, Albumin/Globulin Ratio 0.9 L, CBC w Diff MAN DIFF ORDERED, RBC 3.80 L, MCV 80.6 L, MCH 25.5 L, RDW 17.1 H, MPV 7.3 L, Gran % 97.4 H, Lymphocytes % 1.6 L, Monocytes % 0.9 L, Eosinophils % 0.1, Basophils % 0, Absolute Granulocytes 22.3 H, Segmented Neutrophils 94 H, Band Neutrophils 1, Absolute Lymphocytes 0.4 L, Lymphocytes 4 L, Monocytes 1 L, Absolute Monocytes 0.2, Absolute Eosinophils 0, Absolute Basophils 0, Platelet Estimate VERIFIED BY SMEAR, Normochromic RBCs VERIFIED, Anisocytosis 1+, PUBS MCHC 31.6 L, Fld Total RBCs Counted 100 Vital Signs Date Time Temp Pulse Resp B/P B/P Pulse O2 O2 Flow FiO2 Mean Ox Delivery Rate 02/23 1059 97.0 80 18 150/70 94 Room Air 02/23 0930 96 Room Air Room Air 02/23 0930 98.9 78 18 118/73 97 Room Air Room Air 02/23 0730 98 Room Air Room Air 02/23 0605 97.5 79 20 113/54 97 Room Air 02/22 2350 96.3 80 20 119/58 99 Room Air 02/22 2047 98.5 86 23 116/61 93 Room Air 02/22 2016 98.7 02/22 1950 Room Air 02/22 1908 99.2 93 22 114/62 96 Room Air 02/22 1752 101.4 02/22 1747 99.0 02/22 1713 99 Room Air 02/22 1658 99.0 130 20 134/60 99 Room Air 02/22 1647 99.0 130 22 134/60 99 Room Air
[2017-02-23 15:06] VITALS: BP 143/69
[2017-02-23 16:28] VITALS: BP 138/61
[2017-02-23 16:33] LABS: PTT 33 SEC (25-37)
[2017-02-23 18:30] VITALS: BP 124/60
[2017-02-23 19:04] LABS: ABSOLUTE BASOPHIL COUNT 0 /CUMM (0.0-0.2); ABSOLUTE EOSINOPHIL COUNT 0 /CUMM (0.0-0.7); ABSOLUTE GRANULOCYTE CT 21.6 /CUMM (1.4-6.5); ABSOLUTE LYMPH COUNT 0.6 /CUMM (1.2-3.4); ABSOLUTE MONOCYTE COUNT 0.5 /CUMM (0.10-0.60); BASOPHIL % 0 % (0.0-2.0); EOSINOPHIL % 0 % (0-5); HEMATOCRIT 26.8 % (37-47); MEAN CORPUSCULAR HGB CONC 32.1 G/DL (33.0-37.0); MEAN CORPUSCULAR VOLUME 80.9 FL (81.0-99.0); MEAN PLATELET VOLUME 7.6 FL (7.4-10.4); PLATELET COUNT 414 /CUMM (130-400); RBC DISTRIBUTION WIDTH 17.5 % (11.5-14.5); RED BLOOD CELL CT 3.31 /CUMM (4.20-5.40)
[2017-02-23 19:06] LABS: GRANULOCYTE % 95.1 % (42.2-75.2); WHITE BLOOD CELL COUNT 22.7 /CUMM (4.8-10.8)
--- NOTE | 2017-02-23 20:17 | Cons- Infect Disease ---
General Information and HPI Consulting Request Date of Consult: 02/23/17 Requested By: Alexei Echevarria MD Reason for Consult: Positive blood cultures for gram-positive bri/positive urine culture for gram- negative rods Source of Information: patient, old records History of Present Illness: This is a 71-year-old woman with a history of arthritis and chronic lower extremity edema, seen in the emergency room 2 months prior to admission with right-sided abdominal pain and bright red blood in the toilet, found to be afebrile with a white blood count of 14,000, UA with packed WBCs and a CT of the abdomen and pelvis revealing abnormal wall thickening of the distal left and proximal sigmoid colon, discharged on Ciprofloxacin for a presumed urinary tract infection, with no urine culture sent, admitted on February 22 after she was brought to the emergency room with extreme weakness, preventing her from getting off of the toilet, one episode of dysuria several days prior to admission with suprapubic discomfort and more chronic complaints over the last several weeks of weakness, anorexia and a 10 pound weight loss. On admission she was febrile to 101.4. Laboratory data revealed a white blood cell count of 23,000, BUN/ creatinine 25 and 1.2, lactic acid 2.6, with normal liver enzymes. Urinalysis 50-75 RBCs/packed WBCs. Chest x-ray was negative. Dopplers of both lower extremities revealed a right lower extremity nonocclusive thrombus in the right proximal femoral vein. She was begun on Ceftriaxone and Heparin. She was again febrile to 103 this afternoon and noticed several loose stools, but she overall feels improved with no complaints of dysuria or suprapubic discomfort. This morning blood cultures 2 were reported positive for gram-positive rods and her urine culture was reported positive for gram-negative rods. Allergies/Medications Allergies: Coded Allergies: shrimp (Severe, SEVERE HIVES 12/29/16) Home Med List: No Known Home Medications Past History Travel History Traveled to [place] past 21 day No Medical History Blood Transfusion Hx: No Neurological: NONE EENT: NONE Cardiovascular: NONE Respiratory: NONE Gastrointestinal: NONE Hepatic: NONE Renal: NONE Musculoskeletal: osteoarthritis Psychiatric: NONE Endocrine: NONE Blood Disorders: NONE Cancer(s): NONE RESP THERAPIST/Reproductive: NONE History of MRSA: No History of VRE: No History of CDIFF: No Isolation History: Standard Surgical History Surgical History: non-contributory Family History Relations & Conditions If Any: MOTHER (abd aortic aneyrsm). Psychosocial History Where Do You Live? Home Who Do You Live With? self Services at Home: None Primary Language: Iraqi Smoking Status: Never Smoked ETOH Use: occasional use Illicit Drug Use: denies illicit drug use Functional Ability ADLs Independent: dressing, eating, toileting, bathing. Ambulation: cane IADLs Independent: shopping, housework, finances, food prep, telephone, transportation , medication admin. 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 Exam & Diagnostic Data Last 24 Hrs of Vital Signs/I&O Vital Signs Date Time Temp Pulse Resp B/P B/P Pulse O2 O2 Flow FiO2 Mean Ox Delivery Rate 02/23 1830 98.9 88 18 124/60 96 Room Air 02/23 1628 101.3 90 21 138/61 96 Room Air 02/23 1626 101.3 90 21 138/61 96 Room Air 02/23 1600 101.3 02/23 1506 103.0 90 20 143/69 96 Room Air 02/23 1451 103.0 90 02/23 1402 102.2 02/23 1059 97.0 80 18 150/70 94 Room Air 02/23 0930 96 Room Air Room Air 02/23 0930 98.9 78 18 118/73 97 Room Air Room Air 02/23 0730 98 Room Air Room Air 02/23 0605 97.5 79 20 113/54 97 Room Air 02/22 2350 96.3 80 20 119/58 99 Room Air 02/22 2047 98.5 86 23 116/61 93 Room Air 02/22 2016 98.7 Intake & Output 02/23 1600 02/23 0800 02/23 0000 Intake Total 100 Output Total 700 450 Balance -600 -450 Intake, Oral 100 Number 8 Bowel Movements Output, Stool 500 Output, Urine 200 450 Patient 146 lb 150 lb 145 lb Weight Weight Standing Scale Chair scale Reported by Patient Measurement Method Physical Exam Other Physical Findings: MAXIMUM TEMPERATURE 103. She is awake and alert in no acute distress. Skin reveals no rash. HEENT negative. Neck is supple with no adenopathy. Lungs are clear. Heart regular rhythm with no murmur. Abdomen is soft, tender on palpation over the left lower quadrant and right lower quadrant, with no guarding or rebound, mild suprapubic fullness, with positive bowel sounds. Back no CVA tenderness. Extremities 2-3+ edema both lower extremities. Neuro is without focality. Last 24 Hours of Lab Results: Laboratory Tests 02/23 02/23 1845 1612 Coagulation APTT (25 - 37 SEC) 33 Hematology CBC w Diff MAN DIFF ORDERED WBC (4.8 - 10.8 /CUMM) 22.7 H RBC (4.20 - 5.40 /CUMM) 3.31 L Hgb (12.0 - 16.0 G/DL) 8.6 L Hct (37 - 47 %) 26.8 L MCV (81.0 - 99.0 FL) 80.9 L MCH (27.0 - 31.0 PG) 26.0 L RDW (11.5 - 14.5 %) 17.5 H Plt Count (130 - 400 /CUMM) 414 H MPV (7.4 - 10.4 FL) 7.6 Gran % (42.2 - 75.2 %) 95.1 H Lymphocytes % (20.5 - 51.1 %) 2.6 L Monocytes % (1.7 - 9.3 %) 2.3 Eosinophils % (0 - 5 %) 0 Basophils % (0.0 - 2.0 %) 0 Absolute Granulocytes (1.4 - 6.5 /CUMM) 21.6 H Segmented Neutrophils (42.2 - 75.2 %) 82 H Band Neutrophils (0.0 - 5.0 %) 14 H Absolute Lymphocytes (1.2 - 3.4 /CUMM) 0.6 L Lymphocytes (20.5 - 51.1 %) 3 L Absolute Monocytes (0.10 - 0.60 /CUMM) 0.5 Eosinophils (0 - 5.0 %) 1 Absolute Eosinophils (0.0 - 0.7 /CUMM) 0 Absolute Basophils (0.0 - 0.2 /CUMM) 0 Platelet Estimate (ADEQUATE) ADEQUATE Poikilocytosis FEW Anisocytosis 1+ Macrocytic Cells FEW Ovalocytes FEW PUBS MCHC (33.0 - 37.0 G/DL) 32.1 L 02/23 02/23 0638 0058 Chemistry Sodium (137 - 145 mmol/L) 139 Potassium (3.5 - 5.1 mmol/L) 3.8 Chloride (98 - 107 mmol/L) 108 H Carbon Dioxide (22 - 30 mmol/L) 20 L Anion Gap (5 - 16) 11 BUN (7 - 17 mg/dL) 28 H Creatinine (0.5 - 1.0 mg/dL) 0.9 Estimated GFR (>60 ml/min) > 60 BUN/Creatinine Ratio (7 - 25 %) 31.1 H Lactic Acid (0.7 - 2.1 mmol/L) 0.9 Coagulation APTT (25 - 37 SEC) 32 Hematology CBC w Diff MAN DIFF ORDERED WBC (4.8 - 10.8 /CUMM) 21.2 H RBC (4.20 - 5.40 /CUMM) 3.41 L Hgb (12.0 - 16.0 G/DL) 8.8 L Hct (37 - 47 %) 27.7 L MCV (81.0 - 99.0 FL) 81.3 MCH (27.0 - 31.0 PG) 26.0 L RDW (11.5 - 14.5 %) 17.5 H Plt Count (130 - 400 /CUMM) 414 H MPV (7.4 - 10.4 FL) 7.9 Gran % (42.2 - 75.2 %) 94.4 H Lymphocytes % (20.5 - 51.1 %) 3.3 L Monocytes % (1.7 - 9.3 %) 2.1 Eosinophils % (0 - 5 %) 0.1 Basophils % (0.0 - 2.0 %) 0.1 Absolute Granulocytes (1.4 - 6.5 /CUMM) 20.0 H Segmented Neutrophils (42.2 - 75.2 %) 86 H Band Neutrophils (0.0 - 5.0 %) 11 H Absolute Lymphocytes (1.2 - 3.4 /CUMM) 0.7 L Lymphocytes (20.5 - 51.1 %) 3 L Absolute Monocytes (0.10 - 0.60 /CUMM) 0.5 Absolute Eosinophils (0.0 - 0.7 /CUMM) 0 Absolute Basophils (0.0 - 0.2 /CUMM) 0 Platelet Estimate (ADEQUATE) ADEQUATE Hypochromic-Microcytic 2+ Anisocytosis 1+ PUBS MCHC (33.0 - 37.0 G/DL) 31.9 L Last 24 Hours of Caleb Results: Blood cultures 2 Selena 17 positive for gram-positive rods Urine culture February 22 greater than 100,000 colonies of gram-negative rods Stool C. difficile February 23 pending Diagnostic Data Recent Imaging Findings: Chest x-ray February 22 negative Dopplers of both lower extremities February 22 reveal a nonocclusive thrombus in the right proximal femoral vein Assessment/Plan Assessment/Plan Impression: This is a 71-year-old woman with a history of arthritis and chronic lower extremity edema, seen in the emergency room 2 months prior to admission with right-sided abdominal pain and bright red blood in the toilet, with a CT of the abdomen and pelvis revealing abnormal wall thickening of the distal left and proximal sigmoid colon, discharged on Ciprofloxacin for a presumed urinary tract infection, admitted on February 22 with sudden onset of extreme weakness, one episode of dysuria several days prior to admission with suprapubic discomfort and more chronic complaints over the last several weeks of weakness, anorexia and a 10 pound weight loss, found to be febrile with a leukocytosis, pyuria and a right lower extremity DVT, with blood cultures 2 positive for gram-positive rods and the urine culture positive for gram-negative rods. Given her recent urinary complaints and pyuria her presentation could certainly be consistent with sepsis of urologic origin. The positive blood cultures, however, are more difficult to explain. This could be a decolorization error, in which case they may be reidentified as gram negative rods in the a.m. They could also represent contaminants, though this would be unusual with both sets positive. I am more concerned, however, that they may represent real pathogens, particularly if they are identified as Clostridium, which would suggest the possibility of an intra-abdominal process, which is of some concern given her lower abdominal tenderness and her recent CT scan (performed on her ER visit 2 months prior to admission) which revealed abnormal wall thickening of the distal left and proximal sigmoid colon, raising concern for diverticulitis or an underlying neoplasm (particularly if this is identified as Clostridium septicum) Of note her unprovoked right leg DVT might increase the suspicion for an underlying malignancy. Other possible gram-positive bri infections include Listeria and Bacillus species (both of which could cause GI illness) and Corynebacteria, which is a typical contaminant. Her diarrhea could be secondary to an intra-abdominal process including C. difficile given her recent antibiotics. Suggestion: 1. CT of the abdomen and pelvis with oral and IV contrast 2. Follow-up final blood and urine cultures 3. Follow-up stool for C. difficile 4. Add Flagyl 500 mg IV every 8 hours pending above 5. Continue Ceftriaxone pending above Consult Acknowledgment - Thank you for your consult request.
[2017-02-23 22:26] VITALS: BP 140/66
[2017-02-23 23:52] VITALS: BP 120/60
[2017-02-24 00:50] LABS: ABSOLUTE BASOPHIL COUNT 0 /CUMM (0.0-0.2); ABSOLUTE EOSINOPHIL COUNT 0 /CUMM (0.0-0.7); ABSOLUTE LYMPH COUNT 0.8 /CUMM (1.2-3.4); ABSOLUTE MONOCYTE COUNT 0.5 /CUMM (0.10-0.60); BASOPHIL % 0 % (0.0-2.0); EOSINOPHIL % 0 % (0-5); GRANULOCYTE % 93.9 % (42.2-75.2); HEMATOCRIT 27.3 % (37-47); MEAN CORPUSCULAR HGB 25.8 PG (27.0-31.0); MEAN CORPUSCULAR HGB CONC 32.1 G/DL (33.0-37.0); MEAN CORPUSCULAR VOLUME 80.4 FL (81.0-99.0); MEAN PLATELET VOLUME 7.7 FL (7.4-10.4); PLATELET COUNT 407 /CUMM (130-400); RBC DISTRIBUTION WIDTH 16.9 % (11.5-14.5); RED BLOOD CELL CT 3.39 /CUMM (4.20-5.40); WHITE BLOOD CELL COUNT 22.4 /CUMM (4.8-10.8)
[2017-02-24 00:59] LABS: PTT 43 SEC (25-37)
[2017-02-24 06:10] VITALS: BP 120/60
--- NOTE | 2017-02-24 08:05 | PN- Housestaff ---
See Addendum Subjective Follow-up For: Sepsis of urologic origin Right femoral vein DVT Micropsychotic anemia Thrombocytosis Acute kidney injury Lactic acidosis elevated proBNP Positive blood cultures Diarrhea Complaints: pain scale (0-10) Subjective: She was seen and examined this morning. She is alert awake and oriented to time place and person. She continues to report generalized weakness with lower extremity swelling. Patient denies burning urination, frequency and urgency. Denies any flank pain. She is on IV heparin for right lower extremity DVT. Stool guaiac was positive. Denies any chest pain, short of breath, palpitations, nausea, vomiting, abdominal pain Reports 5 episodes of loose watery stool overnight. However she also reported left-sided abdomen pain 10 out of 10, not allowing to touch. Spiked temperature 103 Max last afternoon. Review of Systems Constitutional: Reports: see HPI. Objective Last 24 Hrs of Vital Signs/I&O Vital Signs Date Time Temp Pulse Resp B/P B/P Pulse O2 O2 Flow FiO2 Mean Ox Delivery Rate 02/24 0610 98.8 85 20 120/60 94 Room Air 02/24 0214 99.5 02/23 2352 98.9 85 20 120/60 95 Room Air 02/23 2226 98.7 84 20 140/66 95 Room Air 02/23 2120 99.3 02/23 1830 98.9 88 18 124/60 96 Room Air 02/23 1628 101.3 90 21 138/61 96 Room Air 02/23 1626 101.3 90 21 138/61 96 Room Air 02/23 1600 101.3 02/23 1506 103.0 90 20 143/69 96 Room Air 02/23 1451 103.0 90 02/23 1402 102.2 02/23 1059 97.0 80 18 150/70 94 Room Air Intake & Output 02/24 1600 02/24 0800 02/24 0000 Intake Total 306.5 Output Total 200 200 Balance 106.5 -200 Intake, IV 306.5 Number 1 1 Bowel Movements Output, Urine 200 200 Physical Exam General Appearance: Alert, Oriented X3, Cooperative, No Acute Distress Other Physical Findings: Skin No Rashes HEENT Atraumatic, PERRLA, dry mucous memberanes Neck Supple, No JVD, No thryomegaly Cardiovascular Normal S1, Normal S2 Lungs Clear to Auscultation, Normal Air Movement Abdomen Normal Bowel Sounds, Soft, not allowing to exam abdomen because of 10 out of 10 pain Neurological Normal Speech Extremities b/l 3+ lower extremity edema, extending upto thighs, more so on Right Current Medications: Current Medications Sig/Jacobo Start time Last Medication Dose Route Stop Time Status Admin Acetaminophen 1,000 MG Q12P PRN 02/24 0845 N/A 1 UNIT IV Acetaminophen 1,000 MG Q6P PRN 02/23 1645 DC 02/24 N/A 1 UNIT IV 0441 Acetaminophen 0 .STK-MED ONE 02/23 1359 DC PO Acetaminophen 650 MG Q8 02/22 2200 AC 02/24 PO 0651 Ceftriaxone Sodium 1,000 MG DAILY 02/23 1000 AC 02/24 IV 0908 Heparin Sodium 4,965 UNIT ONCE ONE 02/24 0900 DC 02/24 (Porcine) IV 02/24 0901 0852 Heparin Sodium 5,000 UNIT .STK-MED ONE 02/24 0151 DC (Porcine) IV 02/24 0152 Heparin Sodium 4,966 UNIT BOLUS ONE 02/24 0140 DC 02/24 (Porcine) IV 02/24 0141 0210 Heparin Sodium 4,950 UNIT ONCE ONE 02/23 1745 DC 02/23 (Porcine) IV 02/23 1746 1748 Heparin Sodium 0 .STK-MED ONE 02/23 1739 DC (Porcine) .ROUTE Heparin Sodium 25,000 UNIT Q24H 02/22 2215 AC 02/24 (Porcine) IV 0853 Sodium Chloride 500 ML Influenza Virus 0.5 ML ONCE ONE 02/23 1300 DC Vaccine IM 02/23 1301 Metronidazole 500 MG IQ8 02/24 0800 02/24 N/A 1 UNIT IV 0749 Last 24 Hrs of Lab/Caleb Results Last 24 Hrs of Labs/Mics: Laboratory Tests 02/24/17 0739: Anion Gap 10, Estimated GFR > 60, BUN/Creatinine Ratio 26.7 H, APTT 42 H, CBC w Diff MAN DIFF ORDERED, RBC 3.57 L, MCV 80.5 L, MCH 26.1 L, RDW 17.1 H, MPV 8.0, Gran % 97.5 H, Lymphocytes % 1.7 L, Monocytes % 0.8 L, Eosinophils % 0, Basophils % 0, Absolute Granulocytes 19.5 H, Segmented Neutrophils 72, Band Neutrophils 25 H, Absolute Lymphocytes 0.3 L, Lymphocytes 2 L, Monocytes 1 L , Absolute Monocytes 0.2, Absolute Eosinophils 0, Absolute Basophils 0, Platelet Estimate VERIFIED BY SMEAR, Normocytic RBCs VERIFIED, Normochromic RBCs VERIFIED , [facility] MCHC 32.4 L 02/24/17 0030: APTT 43 H, CBC w Diff MAN DIFF ORDERED, RBC 3.39 L, MCV 80.4 L, MCH 25.8 L, RDW 16.9 H, MPV 7.7, Gran % 93.9 H, Lymphocytes % 3.7 L, Monocytes % 2.4, Eosinophils % 0, Basophils % 0, Absolute Granulocytes 21.0 H, Segmented Neutrophils 94 H, Band Neutrophils 2, Absolute Lymphocytes 0.8 L, Lymphocytes 1 L, Monocytes 3, Absolute Monocytes 0.5, Absolute Eosinophils 0, Absolute Basophils 0, Platelet Estimate INCREASED, Polychromasia 1+, Hypochromic- Microcytic 1+, Poikilocytosis 1+, Ovalocytes 1+, [facility] MCHC 32.1 L, Fld Total RBCs Counted 100 02/23/17 1845: CBC w Diff MAN DIFF ORDERED, RBC 3.31 L, MCV 80.9 L, MCH 26.0 L, RDW 17.5 H, MPV 7.6, Gran % 95.1 H, Lymphocytes % 2.6 L, Monocytes % 2.3, Eosinophils % 0, Basophils % 0, Absolute Granulocytes 21.6 H, Segmented Neutrophils 82 H, Band Neutrophils 14 H, Absolute Lymphocytes 0.6 L, Lymphocytes 3 L, Absolute Monocytes 0.5, Eosinophils 1, Absolute Eosinophils 0, Absolute Basophils 0, Platelet Estimate ADEQUATE, Poikilocytosis FEW, Anisocytosis 1+, Macrocytic Cells FEW, Ovalocytes FEW, [facility] MCHC 32.1 L 02/23/17 1612: APTT 33 Microbiology 02/23 1500 STOOL: Clostridium difficile Toxin A & B - RECD Assessment/Plan Assessment: The patient is 71-year-old female with past medical history of arthritis, chronic bilateral lower extremity edema presented to [facility] on 02/22 with complaint of burning during urination and increased frequency and urgency, extreme weakness. Also reported anorexia, 10 pound weight loss recently. She was seen in the emergency room at [facility] 2 months prior to this admission with right-sided abdominal pain and bright red blood in the toilet, found to be afebrile with a white blood count of 14,000, UA with packed WBCs and a CT of the abdomen and pelvis revealing abnormal wall thickening of the distal left and proximal sigmoid colon, discharged on Ciprofloxacin for a presumed urinary tract infection, with no urine culture sent. Family history of uterine cancer in her sister. VS 99.0 MAXIMUM TEMPERATURE of 101.4. Heart rate 130, BP on presentation 134/62 Pertinent labs -hb 9.7/30.7 WBC count to 22.9 platelets 492 bands 1, anion gap 17, BUN 25 creatinine 1.2 baseline 1.0, BNP 2730, lactic acid 2.6 -UA turbid positive for nitrates and large leukoesterase packed with WBCs and bacteria moderate epithelial cells -In ED patient received 2 L of normal saline, IV Rocephin and IV Tylenol The patient was admitted to general medicine floor and is being treated and evaluated for following conditions #Sepsis secondary to urological origin Patient presented with suprapubic discomfort, burning micturition, generalized weakness and was found to have elevated white count, bandemia, lactic acidosis, temperature 101.4, HR 130 plus UA picture is consistent with sepsis secondary to urological origin. Meets SIRS crieteria. CT scan done in December 2016 showed multiple bilateral renal cysts. -Monitor fever and WBC curve -IV ceftriaxone day2 -Blood culture positive for gram-positive bri/GNR pending sensitivities -urine culture positive for gram-negative bri pending sensitivities -Tylenol for fever -Infectious disease specialist was consulted -We'll follow up ID and adjust antibiotics accordingly Right femoral vein DVT Given her dilated lower extremity swelling , ultrasound lower extremities was done to rule out DVT. she was found to have Nonocclusive thrombus in the right proximal femoral vein. * Started on IV heparin drip * Vascular surgery consulted * Monitoring hemoglobin closely * Stool guaiac-positive * Hemoglobin remained stable * IF she develops GI bleed and/or decreasing hematocrit, an IVC filter placement would be reasonable with cessation of the anticoagulation until the source of GI bleed is found. * Because of unplanned weight loss and unprovoked DVT, it is reasonable to workup the patient for an occult malignancy. POLYMICROBIAL SEPSIS/diarrhea/ abdomen pain Patient reported loose watery stools since presenting to ER. Denies any nausea, vomiting. However she has 10 out of 10 abdominal pain with rebound tenderness. No sick contact exposure. She is started on IV ceftriaxone for sepsis of urologic origin. Most possibly viral gastroenteritis versus C. difficile diarrhea from antibiotics/malignancy given weight loss/peritonitis from bacteremia. The positive blood cultures,GPR however, are more difficult to explain. Given her lower abdominal tenderness and CT scan findings suggestive of thickening of distal descending colon and sigmoid colon, raising concern for diverticulitis/ COLITIS or an underlying neoplasm. Of note her unprovoked right leg DVT might increase the suspicion for an underlying malignancy. * CAT scan abdomen and pelvis with oral and IV contrast reveals an interval increase in the bilateral pleural effusions, with bilateral densities and a filling defect in a right lower lobe pulmonary vessel; thickening of the large bowel wall at the distal descending/proximal sigmoid colon, more prominent compared to the previous study; moderate ascites, with no definite free intra- abdominal/intrapelvic air * Follow-up C. difficile- neg * Follow-up blood cultures * Continue IV Flagyl 500 mg IV every 8- day2 * Continue ceftriaxone-day 2 * Follow-up surgical recommendations * Follow-up Gastro recommendations Pulmonary embolism Patient was found to have right lower extremity DVT. She was on IV heparin drip. CAT scan abdomen was done which showed findings suggestive of pulmonary embolism. However given her recent exposure to contrast Will do CT angiogram on 02/25 for any pulmonary embolism. * Dual Rate Dealer was consulted * Meanwhile will continue IV heparin drip * Please follow-up CT angiogram 02/25 for PE #SEN Patient presenting creatinine of 1.2-- basline 0.9 likely secondary to dehydration and sepsis of urological origin. She received 2 L of normal saline in ED -Holding off IVF for now. -cr improved 0.9 after 2 L of hydration -Monitor creatinine closely - avoid nephrotoxins #Lactic acidosis Patient presenting with lactic acid of 2.6 and anion gap of 17. Likely secondary to sepsis -Repeat lactate after 3 hours- 0.9 #Anemia Patient is presenting with H/H of 9.7/30.7 in setting of low MCV and MCH likely iron deficiency -Iron studies, TIBC, ferritin, B10 and B12 anemia workup -Guaiac all stools -Hemoglobin remained stable despite being on IV heparin #Thrombocytosis Likely reactive to sepsis -Monitor platelet count #Bilateral lower extremity edema extending upto thighs more so on Right Patient has history of chronic lower extremity edema, proBNP 2730 -Echocardiogram to rule out CHF #Nonspecific lucencies in the spine largest measuring 9 mm in the S1. Patient will require further evaluation with can be done as an outpatient basis. DNR/DNI heart healthy diet DVT prophylaxis with SQ heparin Problem List: 1. Leukocytosis 2. Sepsis 3. UTI (urinary tract infection) 4. Hypokalemia 5. Anemia 6. Arthritis Pain Ratin Pain Location: abdomen Pain Goal: Remain pain free Pain Plan: tylinol Tomorrow's Labs & Rationales: cbc, bep
[2017-02-24 08:16] LABS: ABSOLUTE BASOPHIL COUNT 0 /CUMM (0.0-0.2); ABSOLUTE EOSINOPHIL COUNT 0 /CUMM (0.0-0.7); ABSOLUTE GRANULOCYTE CT 19.5 /CUMM (1.4-6.5); ABSOLUTE LYMPH COUNT 0.3 /CUMM (1.2-3.4); ABSOLUTE MONOCYTE COUNT 0.2 /CUMM (0.10-0.60); BASOPHIL % 0 % (0.0-2.0); EOSINOPHIL % 0 % (0-5); GRANULOCYTE % 97.5 % (42.2-75.2); HEMATOCRIT 28.7 % (37-47); MEAN CORPUSCULAR HGB 26.1 PG (27.0-31.0); MEAN CORPUSCULAR HGB CONC 32.4 G/DL (33.0-37.0); MEAN CORPUSCULAR VOLUME 80.5 FL (81.0-99.0); PLATELET COUNT 404 /CUMM (130-400); RBC DISTRIBUTION WIDTH 17.1 % (11.5-14.5); RED BLOOD CELL CT 3.57 /CUMM (4.20-5.40)
[2017-02-24 08:23] LABS: PTT 42 SEC (25-37)
--- NOTE | 2017-02-24 10:12 | Cons- Vascular Surgery ---
General Information and HPI Consulting Request Date of Consult: 02/23/17 Requested By: Alexei Echevarria MD History of Present Illness: 71-year-old lady who presented to the hospital with chief complaint of dysuria and frequency. She was found to have UTI. She was started on antibiotics. About 2 months ago, she presented to the hospital with abdominal pain. CAT scan at that time showed thickening of the colon. She was diagnosed with UTI and was treated with antibiotics. She has also had unplanned 10 pounds weight loss. She has a history of bilateral lower extremity edema of unknown etiology. Venous duplex of bilateral lower extremity showed nonocclusive right femoral vein thrombosis. She was started on heparin. While in the emergency room, she was found to be guaiac-positive. Her hematocrit has been stable. Vascular surgery has been called to be involved for possible IVC filter placement should she develop GI bleed which might necessitate cessation of anticoagulation. 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 Psychosocial History Where Do You Live? Home Who Do You Live With? self Services at Home: None Primary Language: Nicaraguan Smoking Status: Never Smoked ETOH Use: occasional use Illicit Drug Use: denies illicit drug use Functional Ability ADLs Independent: dressing, eating, toileting, bathing. Ambulation: cane IADLs Independent: shopping, housework, finances, food prep, telephone, transportation , medication admin. 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 SHE IS COMPLAINING OF WEAKNESS Exam & Diagnostic Data Vital Signs and I&O Vital Signs Date Time Temp Pulse Resp B/P B/P Pulse O2 O2 Flow FiO2 Mean Ox Delivery Rate 02/24 0610 98.8 85 20 120/60 94 Room Air 02/24 0214 99.5 02/23 2352 98.9 85 20 120/60 95 Room Air 02/23 2226 98.7 84 20 140/66 95 Room Air 02/23 2120 99.3 02/23 1830 98.9 88 18 124/60 96 Room Air 02/23 1628 101.3 90 21 138/61 96 Room Air 02/23 1626 101.3 90 21 138/61 96 Room Air 02/23 1600 101.3 02/23 1506 103.0 90 20 143/69 96 Room Air 02/23 1451 103.0 90 02/23 1402 102.2 02/23 1059 97.0 80 18 150/70 94 Room Air Intake & Output 02/24 1600 02/24 0800 02/24 0000 02/23 1600 02/23 0800 02/23 0000 Intake Total 306.5 100 Output Total 200 200 700 450 Balance 106.5 -200 -600 -450 Intake, IV 306.5 Intake, Oral 100 Number 1 1 8 Bowel Movements Output, Stool 500 Output, Urine 200 200 200 450 Patient 146 lb 150 lb 145 lb Weight Weight Standing Scale Chair scale Reported by Patient Measurement Method Physical Exam: Patient is alert and oriented 3 Lungs: Clear to auscultation bilaterally Heart: Regular rate and rhythm Abdomen: Soft, nontender and nondistended Extremities: There is moderate edema of bilateral legs. There is no skin discoloration. There are palpable pedal pulses. Assessment/Plan Assessment/Plan 71-year-old lady admitted with UTI on appropriate antibiotics. She was also found to have positive blood cultures. Infectious disease is on board. Because of bilateral lower extremity edema, venous duplex was performed which showed nonocclusive right femoral vein thrombosis. She has been started on heparin drip. She was found to have guaiac positive stool with stable hematocrit. At this time, there is no indication for IVC filter placement. Should she develop GI bleed and/or decreasing hematocrit, an IVC filter placement would be reasonable with cessation of the anticoagulation until the source of GI bleed is found. Because of unplanned weight loss and unprovoked DVT, I think it is reasonable to workup the patient for an occult malignancy. Thank you for asking me to be involved in the care of this patient. Consult Acknowledgment - Thank you for your consult request. Attending MD Review Statement Attending Statement Attending MD Statement: examined this patient, discuss w/resident/PA/PERSONAL CARE AID
--- NOTE | 2017-02-24 11:18 | PN- Att Addend ---
Attending Addendum Attending Brief Note Patient laying in bed, in no acute distress heparin drip on , no obvious bleeding. Temperature slowly coming down, other vital signs are stable. No changes on physical. Appreciate infectious diseases input and recommendations regarding to the blood culture results. Patient went for a abdominal and pelvic CAT scan to rule out any intestinal perforation or any other abnormality continue monitoring the labs closely vascular surgery on standby if there is a need for an IVC filter Intake & Output 02/24 1600 02/24 0400 02/23 1600 02/23 0400 02/22 1600 02/22 0400 Intake Total 306.5 100 Output Total 200 200 700 450 Balance 106.5 -200 -600 -450 Intake, IV 306.5 Intake, Oral 100 Number 1 1 8 Bowel Movements Output, Stool 500 Output, Urine 200 200 200 450 Patient 146 lb 150 lb Weight Weight Standing Scale Chair scale Measurement Method Current Medications Sig/Jacobo Start time Last Medication Dose Route Stop Time Status Admin Acetaminophen 1,000 MG Q12P PRN 02/24 0845 AC N/A 1 UNIT IV Acetaminophen 1,000 MG Q6P PRN 02/23 1645 DC 02/24 N/A 1 UNIT IV 0441 Acetaminophen 0 .STK-MED ONE 02/23 1359 DC PO Acetaminophen 650 MG Q8 02/22 2200 AC 02/24 PO 0651 Ceftriaxone Sodium 1,000 MG DAILY 02/23 1000 AC 02/24 IV 0908 Heparin Sodium 4,965 UNIT ONCE ONE 02/24 0900 DC 02/24 (Porcine) IV 02/24 0901 0852 Heparin Sodium 5,000 UNIT .STK-MED ONE 02/24 0151 DC (Porcine) IV 02/24 0152 Heparin Sodium 4,966 UNIT BOLUS ONE 02/24 0140 DC 02/24 (Porcine) IV 02/24 0141 0210 Heparin Sodium 4,950 UNIT ONCE ONE 02/23 1745 DC 02/23 (Porcine) IV 02/23 1746 1748 Heparin Sodium 0 .STK-MED ONE 02/23 1739 DC (Porcine) .ROUTE Heparin Sodium 25,000 UNIT Q24H 02/22 2215 AC 02/24 (Porcine) IV 0853 Sodium Chloride 500 ML Influenza Virus 0.5 ML ONCE ONE 02/23 1300 DC Vaccine IM 02/23 1301 Metronidazole 500 MG IQ8 02/24 0800 AC 02/24 N/A 1 UNIT IV 0749 Laboratory Tests 02/24/17 0739: Anion Gap 10, Estimated GFR > 60, BUN/Creatinine Ratio 26.7 H, APTT 42 H, CBC w Diff MAN DIFF ORDERED, RBC 3.57 L, MCV 80.5 L, MCH 26.1 L, RDW 17.1 H, MPV 8.0, Gran % 97.5 H, Lymphocytes % 1.7 L, Monocytes % 0.8 L, Eosinophils % 0, Basophils % 0, Absolute Granulocytes 19.5 H, Segmented Neutrophils 72, Band Neutrophils 25 H, Absolute Lymphocytes 0.3 L, Lymphocytes 2 L, Monocytes 1 L , Absolute Monocytes 0.2, Absolute Eosinophils 0, Absolute Basophils 0, Platelet Estimate VERIFIED BY SMEAR, Normocytic RBCs VERIFIED, Normochromic RBCs VERIFIED , PUBS MCHC 32.4 L 02/24/17 0030: APTT 43 H, CBC w Diff MAN DIFF ORDERED, RBC 3.39 L, MCV 80.4 L, MCH 25.8 L, RDW 16.9 H, MPV 7.7, Gran % 93.9 H, Lymphocytes % 3.7 L, Monocytes % 2.4, Eosinophils % 0, Basophils % 0, Absolute Granulocytes 21.0 H, Segmented Neutrophils 94 H, Band Neutrophils 2, Absolute Lymphocytes 0.8 L, Lymphocytes 1 L, Monocytes 3, Absolute Monocytes 0.5, Absolute Eosinophils 0, Absolute Basophils 0, Platelet Estimate INCREASED, Polychromasia 1+, Hypochromic- Microcytic 1+, Poikilocytosis 1+, Ovalocytes 1+, PUBS MCHC 32.1 L, Fld Total RBCs Counted 100 02/23/17 1845: CBC w Diff MAN DIFF ORDERED, RBC 3.31 L, MCV 80.9 L, MCH 26.0 L, RDW 17.5 H, MPV 7.6, Gran % 95.1 H, Lymphocytes % 2.6 L, Monocytes % 2.3, Eosinophils % 0, Basophils % 0, Absolute Granulocytes 21.6 H, Segmented Neutrophils 82 H, Band Neutrophils 14 H, Absolute Lymphocytes 0.6 L, Lymphocytes 3 L, Absolute Monocytes 0.5, Eosinophils 1, Absolute Eosinophils 0, Absolute Basophils 0, Platelet Estimate ADEQUATE, Poikilocytosis FEW, Anisocytosis 1+, Macrocytic Cells FEW, Ovalocytes FEW, PUBS MCHC 32.1 L 02/23/17 1612: APTT 33 02/23/17 0638: Anion Gap 11, Estimated GFR > 60, BUN/Creatinine Ratio 31.1 H, APTT 32, CBC w Diff MAN DIFF ORDERED, RBC 3.41 L, MCV 81.3, MCH 26.0 L, RDW 17.5 H, MPV 7.9, Gran % 94.4 H, Lymphocytes % 3.3 L, Monocytes % 2.1, Eosinophils % 0.1, Basophils % 0.1, Absolute Granulocytes 20.0 H, Segmented Neutrophils 86 H, Band Neutrophils 11 H, Absolute Lymphocytes 0.7 L, Lymphocytes 3 L, Absolute Monocytes 0.5, Absolute Eosinophils 0, Absolute Basophils 0, Platelet Estimate ADEQUATE, Hypochromic-Microcytic 2+, Anisocytosis 1+, PUBS MCHC 31.9 L 02/23/17 0058: Lactic Acid 0.9 02/22/17 1733: Urinalysis LIGHT H, Urine Color YEL, Urine Clarity TURBD H, Urine pH 7.0, Ur Specific [place] 1.020, Urine Protein 100 H, Urine Ketones TRACE H, Urine Nitrite POS H, Urine Bilirubin NEG@ICTO, Urine Urobilinogen 4.0 H, Ur Leukocyte Esterase LARGE H, Ur Microscopic SEDIMENT EXAMINED, Urine RBC 50-75 H, Urine WBC PACKD H, Ur Epithelial Cells MOD H, Urine Bacteria PACKD H, Urine Mucus FEW, Urine Hemoglobin LARGE H, Urine Glucose NEG 02/22/17 1632: Troponin I Cancelled 02/22/17 1630: Anion Gap 17 H, Estimated GFR 44 L, BUN/Creatinine Ratio 20.8, Glucose 108 H, Lactic Acid 2.6 H, Calcium 9.0, Total Bilirubin 1.0, AST 26, ALT 27, Alkaline Phosphatase 126, Troponin I 0.06, Pkw-X-Qcyhwvxhjxg Pept 2730 H, Total Protein 6.3, Albumin 2.9 L, Globulin 3.4, Albumin/Globulin Ratio 0.9 L, CBC w Diff MAN DIFF ORDERED, RBC 3.80 L, MCV 80.6 L, MCH 25.5 L, RDW 17.1 H, MPV 7.3 L, Gran % 97.4 H, Lymphocytes % 1.6 L, Monocytes % 0.9 L, Eosinophils % 0.1, Basophils % 0, Absolute Granulocytes 22.3 H, Segmented Neutrophils 94 H, Band Neutrophils 1, Absolute Lymphocytes 0.4 L, Lymphocytes 4 L, Monocytes 1 L, Absolute Monocytes 0.2, Absolute Eosinophils 0, Absolute Basophils 0, Platelet Estimate VERIFIED BY SMEAR, Normochromic RBCs VERIFIED, Anisocytosis 1+, PUBS MCHC 31.6 L, Fld Total RBCs Counted 100 Microbiology 02/23 1500 STOOL: Clostridium difficile Toxin A & B - RECD 02/22 1733 URINE ROUT: Urine Culture - COMP ESCHERICHIA COLI 02/22 1630 BLOOD: Blood Culture - RES GRAM NEGATIVE RODS GRAM POSITIVE ADEN 02/22 1615 BLOOD: Blood Culture - RES GRAM POSITIVE ADEN Microbiology 02/23 1500 STOOL: Clostridium difficile Toxin A & B - RECD 02/22 1733 URINE ROUT: Urine Culture - COMP ESCHERICHIA COLI 02/22 1630 BLOOD: Blood Culture - RES GRAM NEGATIVE RODS GRAM POSITIVE ADEN 02/22 1615 BLOOD: Blood Culture - RES GRAM POSITIVE ADEN Vital Signs Date Time Temp Pulse Resp B/P B/P Pulse O2 O2 Flow FiO2 Mean Ox Delivery Rate 02/24 0610 98.8 85 20 120/60 94 Room Air 02/24 0214 99.5 02/23 2352 98.9 85 20 120/60 95 Room Air 02/23 2226 98.7 84 20 140/66 95 Room Air 02/23 2120 99.3 02/23 1830 98.9 88 18 124/60 96 Room Air 02/23 1628 101.3 90 21 138/61 96 Room Air 02/23 1626 101.3 90 21 138/61 96 Room Air 02/23 1600 101.3 02/23 1506 103.0 90 20 143/69 96 Room Air 02/23 1451 103.0 90 02/23 1402 102.2
--- NOTE | 2017-02-24 11:37 | CT SCAN REPORT ---
EXAMINATION: CT ABDOMEN AND PELVIS WITH CONTRAST CLINICAL INFORMATION: C. Difficile diarrhea. Assess for diverticulitis or underlying malignancy. COMPARISON: CT scan of the abdomen and pelvis 12/29/2016. TECHNIQUE: Multidetector volumetric imaging was performed of the abdomen and pelvis following IV administration of 950 mL oral Redicat and 95 mL of Optiray 320 intravenous contrast. Sagittal and coronal reformatted images were obtained on the technologist's workstation. DLP: 447.31 mGy-cm FINDINGS: LUNG BASES: There has been interval increase in the bilateral pleural effusions, and there is consolidation versus atelectasis in the lower zones bilaterally. There appears to be a filling defect in a right lower lobe pulmonary vessel, difficult to assess whether arterial or venous (image 2/99). LIVER, GALLBLADDER, AND BILIARY TREE: The liver is normal in size. It has diffusely decreased attenuation consistent with hepatic steatosis which has developed since the prior study. Attenuation is slightly heterogenous. There are small nonspecific areas of low attenuation in the left and right lobes which are too small to characterize. No intrahepatic ductal dilatation is demonstrated. The gallbladder is unremarkable with no evidence of radiopaque gallstones, gallbladder wall thickening, or obvious pericholecystic inflammatory changes. PANCREAS: Unremarkable. SPLEEN: The spleen is normal in size. ADRENAL GLANDS: The adrenal glands are not enlarged. KIDNEYS AND URETERS: Both kidneys demonstrate parapelvic renal cysts, as well as exophytic cysts at the upper pole of the left kidney and in the right kidney laterally extending from the superior to lower leone; the large cyst measures 10.2 cm, not significantly changed compared to the prior study. There is no hydronephrosis. There are no radiodense renal calculi. There is a small amount of perirenal fluid. There are no ureteric calculi and no hydroureter is demonstrated. BLADDER: The urinary bladder is partially filled. There is air within the bladder, which may be consistent with recent catheterization. GASTROINTESTINAL TRACT: There is fluid and contrast within the gastric lumen. The small bowel loops are diffusely slightly dilated and fluid-filled. The appendix is not definitively identified. The ascending and transverse colons demonstrates moderate stool. There is thickening of the large bowel wall at the distal descending/proximal sigmoid colon. This is more prominent compared to prior imaging. Fluid is noted in the sigmoid colon distally and in the rectum with mild thickening of the bowel wall. There is moderate ascites, increased compared to the prior study. There is no definite free intra-abdominal/intrapelvic air. ABDOMINAL WALL: There has been no interval change in the lower right lateral pelvic wall hernia containing fat. There is increased attenuation in the subcutaneous fat relatively diffusely consistent with anasarca, more prominent compared to prior imaging. LYMPH NODES: There is no lymphadenopathy. VASCULAR: There are atheromatous calcifications of the aorta. No aneurysms are seen. PELVIC VISCERA: The uterus is slightly bulky with areas of calcification, most consistent with fibroids. OSSEOUS STRUCTURES: There are severe multilevel degenerative changes in the lower thoracic and particularly in the mid and lower lumbar spine. There is severe osteoarthritic change in hips bilaterally. Areas of lucency are redemonstrated in multiple areas. There are no acute fractures or subluxations. IMPRESSION: 1. There has been moderate interval increase in the ascites when compared to the prior study. The small bowel loops are mildly dilated and fluid-filled, but there is no definite evidence of obstruction at present. There is thickening of the wall of the distal descending and proximal sigmoid colon, more prominent compared to the prior study. This may be related to diverticulitis although tumor cannot be excluded. There is also slight thickening of the distal sigmoid colon and rectal leone, which may be consistent with colitis. 2. The liver has low attenuation consistent with hepatic steatosis. 3. There are multiple bilateral renal cysts. Air within the urinary bladder may be related to prior catheterization. Correlate clinically. 4. There appears to be a filling defect in a right lower lobe pulmonary vessel, difficult to assess whether arterial or venous. Recommend CTA of the chest for further assessment. There is interval increase in the bilateral pleural effusions and atelectasis/consolidation at the bases. 5. This critical result was discussed with Sydnie Grewal by telephone on 02/24/2017 at 11:00 AM and it was ascertained that the content and urgency of the report was understood at the time of direct communication.
--- NOTE | 2017-02-24 12:36 | PN- Infect Dx ---
Subjective Subjective: MAXIMUM TEMPERATURE 103 with temperatures down overnight. She reports continued diarrhea, with 9 stools reported yesterday, at least one of which was guaiac positive, and lower abdominal discomfort. She does not report any urinary symptoms. Objective Last 24 Hrs of Vital Signs/I&O Vital Signs Date Time Temp Pulse Resp B/P B/P Pulse O2 O2 Flow FiO2 Mean Ox Delivery Rate 02/24 0610 98.8 85 20 120/60 94 Room Air 02/24 0214 99.5 02/23 2352 98.9 85 20 120/60 95 Room Air 02/23 2226 98.7 84 20 140/66 95 Room Air 02/23 2120 99.3 02/23 1830 98.9 88 18 124/60 96 Room Air 02/23 1628 101.3 90 21 138/61 96 Room Air 02/23 1626 101.3 90 21 138/61 96 Room Air 02/23 1600 101.3 02/23 1506 103.0 90 20 143/69 96 Room Air 02/23 1451 103.0 90 02/23 1402 102.2 Intake & Output 02/24 1600 02/24 0800 02/24 0000 Intake Total 306.5 Output Total 200 200 Balance 106.5 -200 Intake, IV 306.5 Number 1 1 Bowel Movements Output, Urine 200 200 Physical Exam Other Physical Findings: She is awake and alert in no acute distress Lungs are clear Heart irregular rhythm with no murmur Abdomen is distended, tender to palpation diffusely, with no guarding but with possible rebound, with no bowel sounds appreciated Extremities 2-3+ edema both lower extremities Results Last 24 Hours of Lab Results: Laboratory Tests 02/24 02/24 0739 0030 Chemistry Sodium (137 - 145 mmol/L) 138 Potassium (3.5 - 5.1 mmol/L) 3.7 Chloride (98 - 107 mmol/L) 106 Carbon Dioxide (22 - 30 mmol/L) 21 L Anion Gap (5 - 16) 10 BUN (7 - 17 mg/dL) 24 H Creatinine (0.5 - 1.0 mg/dL) 0.9 Estimated GFR (>60 ml/min) > 60 BUN/Creatinine Ratio (7 - 25 %) 26.7 H Coagulation APTT (25 - 37 SEC) 42 H 43 H Hematology CBC w Diff MAN DIFF ORDERED MAN DIFF ORDERED WBC (4.8 - 10.8 /CUMM) 20.0 H 22.4 H RBC (4.20 - 5.40 /CUMM) 3.57 L 3.39 L Hgb (12.0 - 16.0 G/DL) 9.3 L 8.8 L Hct (37 - 47 %) 28.7 L 27.3 L MCV (81.0 - 99.0 FL) 80.5 L 80.4 L MCH (27.0 - 31.0 PG) 26.1 L 25.8 L RDW (11.5 - 14.5 %) 17.1 H 16.9 H Plt Count (130 - 400 /CUMM) 404 H 407 H MPV (7.4 - 10.4 FL) 8.0 7.7 Gran % (42.2 - 75.2 %) 97.5 H 93.9 H Lymphocytes % (20.5 - 51.1 %) 1.7 L 3.7 L Monocytes % (1.7 - 9.3 %) 0.8 L 2.4 Eosinophils % (0 - 5 %) 0 0 Basophils % (0.0 - 2.0 %) 0 0 Absolute Granulocytes (1.4 - 6.5 /CUMM) 19.5 H 21.0 H Segmented Neutrophils (42.2 - 75.2 %) 72 94 H Band Neutrophils (0.0 - 5.0 %) 25 H 2 Absolute Lymphocytes (1.2 - 3.4 /CUMM) 0.3 L 0.8 L Lymphocytes (20.5 - 51.1 %) 2 L 1 L Monocytes (1.7 - 9.3 %) 1 L 3 Absolute Monocytes (0.10 - 0.60 /CUMM) 0.2 0.5 Absolute Eosinophils (0.0 - 0.7 /CUMM) 0 0 Absolute Basophils (0.0 - 0.2 /CUMM) 0 0 Platelet Estimate (ADEQUATE) VERIFIED BY SMEAR INCREASED Normocytic RBCs VERIFIED Normochromic RBCs VERIFIED Polychromasia 1+ Hypochromic-Microcytic 1+ Poikilocytosis 1+ Ovalocytes 1+ PUBS MCHC (33.0 - 37.0 G/DL) 32.4 L 32.1 L Other Body Source Fld Total RBCs Counted (%) 100 02/23 02/23 1845 1612 Coagulation APTT (25 - 37 SEC) 33 Hematology CBC w Diff MAN DIFF ORDERED WBC (4.8 - 10.8 /CUMM) 22.7 H RBC (4.20 - 5.40 /CUMM) 3.31 L Hgb (12.0 - 16.0 G/DL) 8.6 L Hct (37 - 47 %) 26.8 L MCV (81.0 - 99.0 FL) 80.9 L MCH (27.0 - 31.0 PG) 26.0 L RDW (11.5 - 14.5 %) 17.5 H Plt Count (130 - 400 /CUMM) 414 H MPV (7.4 - 10.4 FL) 7.6 Gran % (42.2 - 75.2 %) 95.1 H Lymphocytes % (20.5 - 51.1 %) 2.6 L Monocytes % (1.7 - 9.3 %) 2.3 Eosinophils % (0 - 5 %) 0 Basophils % (0.0 - 2.0 %) 0 Absolute Granulocytes (1.4 - 6.5 /CUMM) 21.6 H Segmented Neutrophils (42.2 - 75.2 %) 82 H Band Neutrophils (0.0 - 5.0 %) 14 H Absolute Lymphocytes (1.2 - 3.4 /CUMM) 0.6 L Lymphocytes (20.5 - 51.1 %) 3 L Absolute Monocytes (0.10 - 0.60 /CUMM) 0.5 Eosinophils (0 - 5.0 %) 1 Absolute Eosinophils (0.0 - 0.7 /CUMM) 0 Absolute Basophils (0.0 - 0.2 /CUMM) 0 Platelet Estimate (ADEQUATE) ADEQUATE Poikilocytosis FEW Anisocytosis 1+ Macrocytic Cells FEW Ovalocytes FEW PUBS MCHC (33.0 - 37.0 G/DL) 32.1 L Last 24 Hours of Caleb Results: Blood cultures 2 February 22 positive for gram-positive rods and gram-negative rods Urine culture February 22 greater than 100,000 colonies of Escherichia coli sensitive to all antibiotics tested Stool C. difficile February 23 pending Recent Imaging Studies: CT of the abdomen and pelvis February 24 reveals an interval increase in the bilateral pleural effusions, with bilateral densities and a filling defect in a right lower lobe pulmonary vessel; hepatic steatosis; thickening of the large bowel wall at the distal descending/proximal sigmoid colon, more prominent compared to the previous study; moderate ascites, with no definite free intra- abdominal/intrapelvic air Assessment/Plan Impression: Polymicrobial sepsis, with both gram-negative rods and gram-positive rods isolated from the blood cultures, suggesting an intra-abdominal process/possible peritonitis with the CT scan revealing an increase in the ascites and increased thickening of the distal descending and proximal sigmoid colon, possibly secondary to diverticulitis, colitis or an underlying malignancy. Her abdominal exam is of concern with possible rebound and marked tenderness and surgical evaluation would be appropriate. The gram-positive rods in the blood may be anaerobes, in which case Clostridium seems quite likely (Clostridium septicum is associated with underlying malignancies) with the gram-negative rods likely Escherichia coli, which was also isolated from her urine culture. C. difficile is possible with her diarrhea and recent antibiotics and the toxin test is pending. Clostridium difficile bacteremia is also possible but would be unusual. She appears to have defervesced but her leukocytosis and bandemia persist on Ceftriaxone and Flagyl. The finding of a filling defect in the right lower lobe pulmonary vessel on the CT of the abdomen and pelvis is noted and suggests a pulmonary embolus, likely secondary to her right lower extremity DVT, for which she is on Heparin. Suggestion: 1. Surgical evaluation 2. Pulmonary evaluation regarding possible pulmonary embolism 3. Follow-up final blood cultures 4. Follow-up stool for C. difficile 5. Continue Ceftriaxone and Flagyl pending above
[2017-02-24 14:30] VITALS: BP 120/60
[2017-02-24 15:10] LABS: PTT 107 SEC (25-37)
--- NOTE | 2017-02-24 15:14 | Cons- General Surgery ---
See Addendum Jose Marcos 02/24/17 1453: General Information and HPI Consulting Request Date of Consult: 02/24/17 Requested By: Alexei Echevarria MD Reason for Consult: Abdominal pain and distention Source of Information: patient, old records Exam Limitations: no limitations History of Present Illness: Ms. Godoy is a 71-year-old female with no significant past medical history other than untreated asymptomatic bilateral lower extremity edema was brought in by ambulance from home for lethargy and urinary burning and frequency. After initial evaluation emergency room she was admitted and treated for urosepsis. There were no complaints of nausea or vomiting on admission however she did have abdominal pain with distention and loose stools. Her C. difficile workup was negative however CAT scan of her abdomen revealed some distended loops of bowel with thickening of descending and sigmoid colon consistent with colitis. There were no guillermo blood with bowel movements however they were guaiac positive. After speaking with her this afternoon she states that since she came into the hospital her abdomen is less tender and less distended. Allergies/Medications Allergies: Coded Allergies: shrimp (Severe, SEVERE HIVES 12/29/16) Home Med List: No Known Home Medications Past History Medical History Blood Transfusion Hx: No Neurological: NONE EENT: NONE Cardiovascular: NONE Respiratory: NONE Gastrointestinal: NONE Hepatic: NONE Renal: NONE Musculoskeletal: osteoarthritis Psychiatric: NONE Endocrine: NONE Blood Disorders: NONE Cancer(s): NONE JACKER/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 Psychosocial History Where Do You Live? Home Who Do You Live With? self Services at Home: None Primary Language: Argentine Smoking Status: Never Smoked ETOH Use: occasional use Illicit Drug Use: denies illicit drug use Functional Ability ADLs Independent: dressing, eating, toileting, bathing. Ambulation: cane IADLs Independent: shopping, housework, finances, food prep, telephone, transportation , medication admin. 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 Exam & Diagnostic Data Vital Signs and I&O Vital Signs Date Time Temp Pulse Resp B/P B/P Pulse O2 O2 Flow FiO2 Mean Ox Delivery Rate 02/24 1430 97.9 86 20 120/60 94 Room Air 02/24 0610 98.8 85 20 120/60 94 Room Air 02/24 0214 99.5 02/23 2352 98.9 85 20 120/60 95 Room Air 02/23 2226 98.7 84 20 140/66 95 Room Air 02/23 2120 99.3 02/23 1830 98.9 88 18 124/60 96 Room Air 02/23 1628 101.3 90 21 138/61 96 Room Air 02/23 1626 101.3 90 21 138/61 96 Room Air 02/23 1600 101.3 02/23 1506 103.0 90 20 143/69 96 Room Air Intake & Output 02/24 1600 02/24 0800 02/24 0000 02/23 1600 02/23 0800 02/23 0000 Intake Total 964.8 306.5 100 Output Total 400 200 200 700 450 Balance 564.8 106.5 -200 -600 -450 Intake, IV 364.8 306.5 Intake, Oral 600 100 Number 2 1 1 8 Bowel Movements Output, Stool 500 Output, Urine 400 200 200 200 450 Patient 146 lb 150 lb 145 lb Weight Weight Standing Scale Chair scale Reported by Patient Measurement Method Physical Exam General Appearance: alert, awake Head: normal appearance Eyes: Bilateral: PERRL. Respiratory: normal breath sounds Cardiovascular: regular rate/rhythm Gastrointestinal: normal bowel sounds, distention, abdomen is distended with periumbilical and left lower quadrant tenderness to palpation, no evidence of gross peritonitis, no guarding Extremities: chronic bilateral lower extremity edema with chronic venous stasis changes Last 24 Hours of Labs: Laboratory Tests 02/24 02/24 1441 0739 Chemistry Sodium (137 - 145 mmol/L) 138 Potassium (3.5 - 5.1 mmol/L) 3.7 Chloride (98 - 107 mmol/L) 106 Carbon Dioxide (22 - 30 mmol/L) 21 L Anion Gap (5 - 16) 10 BUN (7 - 17 mg/dL) 24 H Creatinine (0.5 - 1.0 mg/dL) 0.9 Estimated GFR (>60 ml/min) > 60 BUN/Creatinine Ratio (7 - 25 %) 26.7 H Coagulation APTT (25 - 37 SEC) Pending 42 H Hematology CBC w Diff MAN DIFF ORDERED WBC (4.8 - 10.8 /CUMM) 20.0 H RBC (4.20 - 5.40 /CUMM) 3.57 L Hgb (12.0 - 16.0 G/DL) 9.3 L Hct (37 - 47 %) 28.7 L MCV (81.0 - 99.0 FL) 80.5 L MCH (27.0 - 31.0 PG) 26.1 L RDW (11.5 - 14.5 %) 17.1 H Plt Count (130 - 400 /CUMM) 404 H MPV (7.4 - 10.4 FL) 8.0 Gran % (42.2 - 75.2 %) 97.5 H Lymphocytes % (20.5 - 51.1 %) 1.7 L Monocytes % (1.7 - 9.3 %) 0.8 L Eosinophils % (0 - 5 %) 0 Basophils % (0.0 - 2.0 %) 0 Absolute Granulocytes (1.4 - 6.5 /CUMM) 19.5 H Segmented Neutrophils (42.2 - 75.2 %) 72 Band Neutrophils (0.0 - 5.0 %) 25 H Absolute Lymphocytes (1.2 - 3.4 /CUMM) 0.3 L Lymphocytes (20.5 - 51.1 %) 2 L Monocytes (1.7 - 9.3 %) 1 L Absolute Monocytes (0.10 - 0.60 /CUMM) 0.2 Absolute Eosinophils (0.0 - 0.7 /CUMM) 0 Absolute Basophils (0.0 - 0.2 /CUMM) 0 Platelet Estimate (ADEQUATE) VERIFIED BY SMEAR Normocytic RBCs VERIFIED Normochromic RBCs VERIFIED PUBS MCHC (33.0 - 37.0 G/DL) 32.4 L 02/24 02/23 0030 1845 Coagulation APTT (25 - 37 SEC) 43 H Hematology CBC w Diff MAN DIFF ORDERED MAN DIFF ORDERED WBC (4.8 - 10.8 /CUMM) 22.4 H 22.7 H RBC (4.20 - 5.40 /CUMM) 3.39 L 3.31 L Hgb (12.0 - 16.0 G/DL) 8.8 L 8.6 L Hct (37 - 47 %) 27.3 L 26.8 L MCV (81.0 - 99.0 FL) 80.4 L 80.9 L MCH (27.0 - 31.0 PG) 25.8 L 26.0 L RDW (11.5 - 14.5 %) 16.9 H 17.5 H Plt Count (130 - 400 /CUMM) 407 H 414 H MPV (7.4 - 10.4 FL) 7.7 7.6 Gran % (42.2 - 75.2 %) 93.9 H 95.1 H Lymphocytes % (20.5 - 51.1 %) 3.7 L 2.6 L Monocytes % (1.7 - 9.3 %) 2.4 2.3 Eosinophils % (0 - 5 %) 0 0 Basophils % (0.0 - 2.0 %) 0 0 Absolute Granulocytes (1.4 - 6.5 /CUMM) 21.0 H 21.6 H Segmented Neutrophils (42.2 - 75.2 %) 94 H 82 H Band Neutrophils (0.0 - 5.0 %) 2 14 H Absolute Lymphocytes (1.2 - 3.4 /CUMM) 0.8 L 0.6 L Lymphocytes (20.5 - 51.1 %) 1 L 3 L Monocytes (1.7 - 9.3 %) 3 Absolute Monocytes (0.10 - 0.60 /CUMM) 0.5 0.5 Eosinophils (0 - 5.0 %) 1 Absolute Eosinophils (0.0 - 0.7 /CUMM) 0 0 Absolute Basophils (0.0 - 0.2 /CUMM) 0 0 Platelet Estimate (ADEQUATE) INCREASED ADEQUATE Polychromasia 1+ Hypochromic-Microcytic 1+ Poikilocytosis 1+ FEW Anisocytosis 1+ Macrocytic Cells FEW Ovalocytes 1+ FEW PUBS MCHC (33.0 - 37.0 G/DL) 32.1 L 32.1 L Other Body Source Fld Total RBCs Counted (%) 100 02/23 1612 Coagulation APTT (25 - 37 SEC) 33 Imaging Results: SERVICE DATE: 02/24/17- EXAM TYPE: CAT - CT ABD & PELVIS W ORAL & IV CO EXAMINATION: CT ABDOMEN AND PELVIS WITH CONTRAST CLINICAL INFORMATION: C. Difficile diarrhea. Assess for diverticulitis or underlying malignancy. COMPARISON: CT scan of the abdomen and pelvis 12/29/2016. TECHNIQUE: Multidetector volumetric imaging was performed of the abdomen and pelvis following IV administration of 950 mL oral Redicat and 95 mL of Optiray 320 intravenous contrast. Sagittal and coronal reformatted images were obtained on the technologist's workstation. DLP: 447.31 mGy-cm FINDINGS: LUNG BASES: There has been interval increase in the bilateral pleural effusions, and there is consolidation versus atelectasis in the lower zones bilaterally. There appears to be a filling defect in a right lower lobe pulmonary vessel, difficult to assess whether arterial or venous (image 2/99). LIVER, GALLBLADDER, AND BILIARY TREE: The liver is normal in size. It has diffusely decreased attenuation consistent with hepatic steatosis which has developed since the prior study. Attenuation is slightly heterogenous. There are small nonspecific areas of low attenuation in the left and right lobes which are too small to characterize. No intrahepatic ductal dilatation is demonstrated. The gallbladder is unremarkable with no evidence of radiopaque gallstones, gallbladder wall thickening, or obvious pericholecystic inflammatory changes. PANCREAS: Unremarkable. SPLEEN: The spleen is normal in size. ADRENAL GLANDS: The adrenal glands are not enlarged. KIDNEYS AND URETERS: Both kidneys demonstrate parapelvic renal cysts, as well as exophytic cysts at the upper pole of the left kidney and in the right kidney laterally extending from the superior to lower leone; the large cyst measures 10.2 cm, not significantly changed compared to the prior study. There is no hydronephrosis. There are no radiodense renal calculi. There is a small amount of perirenal fluid. There are no ureteric calculi and no hydroureter is demonstrated. BLADDER: The urinary bladder is partially filled. There is air within the bladder, which may be consistent with recent catheterization. GASTROINTESTINAL TRACT: There is fluid and contrast within the gastric lumen. The small bowel loops are diffusely slightly dilated and fluid-filled. The appendix is not definitively identified. The ascending and transverse colons demonstrates moderate stool. There is thickening of the large bowel wall at the distal descending/proximal sigmoid colon. This is more prominent compared to prior imaging. Fluid is noted in the sigmoid colon distally and in the rectum with mild thickening of the bowel wall. There is moderate ascites, increased compared to the prior study. There is no definite free intra-abdominal/intrapelvic air. ABDOMINAL WALL: There has been no interval change in the lower right lateral pelvic wall hernia containing fat. There is increased attenuation in the subcutaneous fat relatively diffusely consistent with anasarca, more prominent compared to prior imaging. LYMPH NODES: There is no lymphadenopathy. VASCULAR: There are atheromatous calcifications of the aorta. No aneurysms are seen. PELVIC VISCERA: The uterus is slightly bulky with areas of calcification, most consistent with fibroids. OSSEOUS STRUCTURES: There are severe multilevel degenerative changes in the lower thoracic and particularly in the mid and lower lumbar spine. There is severe osteoarthritic change in hips bilaterally. Areas of lucency are redemonstrated in multiple areas. There are no acute fractures or subluxations. IMPRESSION: 1. There has been moderate interval increase in the ascites when compared to the prior study. The small bowel loops are mildly dilated and fluid-filled, but there is no definite evidence of obstruction at present. There is thickening of the wall of the distal descending and proximal sigmoid colon, more prominent compared to the prior study. This may be related to diverticulitis although tumor cannot be excluded. There is also slight thickening of the distal sigmoid colon and rectal leone, which may be consistent with colitis. 2. The liver has low attenuation consistent with hepatic steatosis. 3. There are multiple bilateral renal cysts. Air within the urinary bladder may be related to prior catheterization. Correlate clinically. 4. There appears to be a filling defect in a right lower lobe pulmonary vessel, difficult to assess whether arterial or venous. Recommend CTA of the chest for further assessment. There is interval increase in the bilateral pleural effusions and atelectasis/consolidation at the bases. 5. This critical result was discussed with Sydnie Grewal by telephone on 02/24/2017 at 11:00 AM and it was ascertained that the content and urgency of the report was understood at the time of direct communication. DICTATED BY: Abdullahi Robb MD DATE/TIME DICTATED:02/24/171025 EMBALMER APPRENTICE:BIANCA DATE/TIME TRANSCRIBED:02/24/171025 Assessment/Plan Assessment/Plan Ms. Godoy is a 71-year-old female admitted 2 days ago for urosepsis, with abdominal pain and distention. CAT scan of the abdomen reveals a thickened descending and sigmoid colon consistent with colitis, of note there is no free air noted. She has blood cultures positive for gram-negative rods. She is currently on a heparin drip for a right lower extremity nonocclusive DVT which is being followed by vascular surgery. Examination of abdomen today reveals a softly distended abdomen with periumbilical and left lower quadrant abdominal pain to palpation without guarding. With regards to her abdomen her clinical picture is highly suspicious for malignancy. Agree with current treatment for urosepsis and DVT and surgery will continue to follow patient for abdomen on this admission. Plan This case was discussed with Dr. Jacobs who will be consult for surgical services. Continue current antibiotic regime Serial abdominal exams Dr. Jacobs will be in to evaluate the patient in a.m. Consult Acknowledgment - Thank you for your consult request. Reynaldo ROTH,Jacob Zenon 02/24/171927: Past History Medical History Blood Disorders: DVT Assessment/Plan Consult Acknowledgment - Thank you for your consult request. Attending MD Review Statement Attending Statement Attending MD Statement: discuss w/resident/PA/TOWER OBSERVER, reviewed images Attending Assessment/Plan: Patiend admitted with presumed urinary source of fever and leukocytosis given dysuria and urinalysis findings. Developed abdominal pain and diarrhea, guiac positive. Now with polymicrobial bacteremia, likely GI source. Unclear etiology by history and imaging. DDx includes inflammatory colitis, ischema, diverticulitis and neoplasm. Not typical scenario for diverticulitis and by imaging, visceral vasculature is patent. She appears to be responding to bowel rest and broad spectrum antibiotics. Anaerobic coverage instituted. Given clinical improvement, no need for emergent surgical exploration. Will follow. Please call with acute changes to her status.
--- NOTE | 2017-02-24 18:24 | ECHOCARDIOGRAM REPORT ---
SIMBA PINEDA Age: 71 : 1945 Gender: F Exam Date: 02/24/2017 12:45 Exam Location: [address] [place] [address] Ht (in): 66 Wt (lb): 145 BSA: 1.76 BP: 150 / 70 Ordering Physician: Sydnie Grewal MD Referring Physician: Sydnie Grewal MD Technologist: Oscar Fraire [facility] Room Number: 215-2 Indications: Shortness of breath Rhythm: Sinus Technical Quality: Fair FINDINGS Left Ventricle Normal size left ventricle. Borderline to mild concentric left ventricular hypertrophy. No obvious regional wall motion abnormalities. Normal left ventricular ejection fraction visually estimated at >60 %. Abnormal relaxation filling pattern of the left ventricle for age (stage 1 diastolic dysfunction). Right Ventricle Normal right ventricular size and function. Right Atrium Normal right atrial size. Left Atrium Normal left atrial size. Mitral Valve Mitral valve mildly thickened. No mitral regurgitation. Aortic Valve Trileaflet aortic valve. Aortic sclerosis. Diffuse mild thickening of the aortic valve cusps with mildly reduced excursion. No hemodynamically significant aortic stenosis. Mild aortic regurgitation. Tricuspid Valve Structurally normal tricuspid valve. Trace tricuspid regurgitation. Right ventricular systolic pressure estimated at 33 mmHg. Pulmonic Valve Pulmonic valve not well visualized. No pulmonic regurgitation. Pericardium Minimal pericardial effusion (normal variant). Great Vessels Normal size aortic root. Normal size inferior vena cava. ```````````````````````` CONCLUSIONS Normal size left ventricle. Borderline to mild concentric left ventricular hypertrophy. No obvious regional wall motion abnormalities. Normal left ventricular ejection fraction visually estimated at >60 Abnormal relaxation filling pattern of the left ventricle for age (stage 1 diastolic dysfunction). Normal right ventricular size and function. Normal atrial size. No hemodynamically significant aortic stenosis. Mild aortic regurgitation. Trace tricuspid regurgitation. Right ventricular systolic pressure estimated at 33 mmHg. Ryan Graves M.D. (Electronically Signed) Final Date: 24 February 2017 18:23 MEASUREMENTS (Male / Female) Normal Values 2D ECHO LV Diastolic Diameter PLAX 4.8 cm 4.2 - 5.9 / 3.9 - 5.3 cm LV Systolic Diameter PLAX 2.6 cm 2.1 - 4.0 cm LV Fractional Shortening PLAX 45.8 % 25 - 46 % LV Ejection Fraction 2D Teich 77.1 % IVS Diastolic Thickness 1.1 cm LVPW Diastolic Thickness 1.1 cm LV Relative Wall Thickness 0.5 RV Internal Dim ED PLAX 3.2 cm 1.9 - 3.8 cm LVOT Diameter 1.9 cm Aortic Root Diameter 3.0 cm LA Systolic Diameter LX 3.2 cm 3.0 - 4.0 / 2.7 - 3.8 cm DOPPLER AV Peak Velocity 201.0 cm/s AV Peak Gradient 16.2 mmHg AV Mean Velocity 140.0 cm/s AV Mean Gradient 9.0 mmHg AV Velocity Time Integral 36.8 cm AI Deceleration Pender 312.7 cm/s AI Peak Velocity 470.3 cm/s AI Pressure Half Time 444.0 ms AI Peak Gradient 88.5 mmHg LVOT Peak Velocity 112.0 cm/s LVOT Peak Gradient 5.0 mmHg LVOT Mean Velocity 65.9 cm/s LVOT Mean Gradient 2.0 mmHg LVOT Velocity Time Integral 21.9 cm LVOT Stroke Volume 62.1 cm AV Area Cont Eq vti 1.7 cm AV Area Cont Eq pk 1.6 cm MV Peak Velocity 84.1 cm/s MV Peak Gradient 2.8 mmHg MV Mean Velocity 52.3 cm/s MV Mean Gradient 1.0 mmHg Mitral E Point Velocity 49.9 cm/s Mitral A Point Velocity 68.1 cm/s Mitral E to A Ratio 0.7 MV PHT Velocity 77.4 cm/s MV Deceleration Pender 259.0 cm/s MV Pressure Half Time 89.7 ms MV Area PHT 2.5 cm MV Deceleration Time 303.0 ms TR Peak Velocity 265.0 cm/s TR Peak Gradient 28.1 mmHg Right Atrial Pressure 5.0 mmHg Pulmonary Artery Systolic Pressu 33.1 mmHg Right Ventricular Systolic Press 33.1 mmHg PV Peak Velocity 109.0 cm/s PV Peak Gradient 4.8 mmHg PV Mean Velocity 67.5 cm/s PV Mean Gradient 2.0 mmHg PV Velocity Time Integral 17.0 cm LV E' Lateral Velocity 13.8 cm/s Mitral E to LV E' Lateral Ratio 3.6 LV E' Septal Velocity 6.5 cm/s Mitral E to LV E' Septal Ratio 7.6
[2017-02-24 22:51] VITALS: BP 128/62
[2017-02-24 23:13] LABS: PTT 44 SEC (25-37)
[2017-02-25 03:59] LABS: PT 20.2 SEC (9.4-12.5)
[2017-02-25 05:09] LABS: PTT 108 SEC (25-37)
[2017-02-25 06:35] VITALS: BP 134/70
--- NOTE | 2017-02-25 07:18 | PN- Housestaff ---
Subjective Follow-up For: Sepsis of urologic origin Right femoral vein DVT Micropsychotic anemia Thrombocytosis Acute kidney injury Lactic acidosis elevated proBNP Positive blood cultures Diarrhea/colitis Subjective: She was seen and examined this morning. She is alert awake and oriented to time place and person. She continues to report generalized weakness with lower extremity swelling. Patient denies burning urination, frequency and urgency. Denies any flank pain. She is on IV heparin for right lower extremity DVT. Stool guaiac was positive. Denies any chest pain, short of breath, palpitations, nausea, vomiting, abdominal pain Reports 3 episodes of loose watery stool overnight. afebrile Review of Systems Constitutional: Reports: see HPI. Objective Last 24 Hrs of Vital Signs/I&O Vital Signs Date Time Temp Pulse Resp B/P B/P Pulse O2 O2 Flow FiO2 Mean Ox Delivery Rate 02/25 0635 97.9 94 20 134/70 94 02/25 0000 92 Nasal 2.0L Cannula 02/24 2323 92 Nasal 2.0L Cannula 02/24 2251 98.5 91 18 128/62 90 Room Air 02/24 1430 97.9 86 20 120/60 94 Room Air Intake & Output 02/25 0800 02/25 0000 02/24 1600 Intake Total 448 860.9 964.8 Output Total 300 450 400 Balance 148 410.9 564.8 Intake, IV 328 120.9 364.8 Intake, Oral 120 740 600 Number 2 1 2 Bowel Movements Output, Urine 300 450 400 Patient 102.115 kg Weight Weight Bed scale Measurement Method Physical Exam General Appearance: Alert, Oriented X3, Cooperative, No Acute Distress Other Physical Findings: Skin No Rashes HEENT Atraumatic, PERRLA, dry mucous memberanes Neck Supple, No JVD, No thryomegaly Cardiovascular Normal S1, Normal S2 Lungs Clear to Auscultation, Normal Air Movement Abdomen Normal Bowel Sounds, Soft, non tender Neurological Normal Speech Extremities b/l 3+ lower extremity edema, extending upto thighs, more so on Right Current Medications: Current Medications Sig/Jacobo Start time Last Medication Dose Route Stop Time Status Admin Acetaminophen 1,000 MG Q12P PRN 02/24 0845 AC N/A 1 UNIT IV Acetaminophen 1,000 MG Q6P PRN 02/23 1645 DC 02/24 N/A 1 UNIT IV 0441 Acetaminophen 650 MG Q8 02/22 2200 AC 02/25 PO 0501 Ceftriaxone Sodium 1,000 MG DAILY 02/23 1000 AC 02/24 IV 0908 Heparin Sodium 4,966 UNIT BOLUS ONE 02/25 0000 DC 02/25 (Porcine) IV 02/25 0001 0040 Heparin Sodium 4,965 UNIT ONCE ONE 02/24 0900 DC 02/24 (Porcine) IV 02/24 0901 0852 Heparin Sodium 5,000 UNIT .STK-MED ONE 02/24 0845 DC (Porcine) IV 02/24 0846 Heparin Sodium 25,000 UNIT Q24H 02/22 221 AC 02/24 (Porcine) IV 2008 Sodium Chloride 500 ML Metronidazole 500 MG IQ8 02/24 0800 AC 02/24 N/A 1 UNIT IV 2315 Last 24 Hrs of Lab/Caleb Results Last 24 Hrs of Labs/Mics: Laboratory Tests 02/25/17 0600: APTT Cancelled 02/25/17 0320: PT 20.2 H, INR 1.94 H, APTT 108 *H 02/24/17 2215: APTT 44 H 02/24/17 1441: APTT 107 *H 02/24/17 0739: Anion Gap 10, Estimated GFR > 60, BUN/Creatinine Ratio 26.7 H, APTT 42 H, CBC w Diff MAN DIFF ORDERED, RBC 3.57 L, MCV 80.5 L, MCH 26.1 L, RDW 17.1 H, MPV 8.0, Gran % 97.5 H, Lymphocytes % 1.7 L, Monocytes % 0.8 L, Eosinophils % 0, Basophils % 0, Absolute Granulocytes 19.5 H, Segmented Neutrophils 72, Band Neutrophils 25 H, Absolute Lymphocytes 0.3 L, Lymphocytes 2 L, Monocytes 1 L , Absolute Monocytes 0.2, Absolute Eosinophils 0, Absolute Basophils 0, Platelet Estimate VERIFIED BY SMEAR, Normocytic RBCs VERIFIED, Normochromic RBCs VERIFIED , PUBS MCHC 32.4 L Assessment/Plan Assessment: The patient is 71-year-old female with past medical history of arthritis, chronic bilateral lower extremity edema presented to [facility] on 02/22 with complaint of burning during urination and increased frequency and urgency, extreme weakness. Also reported anorexia, 10 pound weight loss recently. She was seen in the emergency room at [facility] 2 months prior to this admission with right-sided abdominal pain and bright red blood in the toilet, found to be afebrile with a white blood count of 14,000, UA with packed WBCs and a CT of the abdomen and pelvis revealing abnormal wall thickening of the distal left and proximal sigmoid colon, discharged on Ciprofloxacin for a presumed urinary tract infection, with no urine culture sent. Family history of uterine cancer in her sister. VS 99.0 MAXIMUM TEMPERATURE of 101.4. Heart rate 130, BP on presentation 134/62 Pertinent labs -hb 9.7/30.7 WBC count to 22.9 platelets 492 bands 1, anion gap 17, BUN 25 creatinine 1.2 baseline 1.0, BNP 2730, lactic acid 2.6 -UA turbid positive for nitrates and large leukoesterase packed with WBCs and bacteria moderate epithelial cells -In ED patient received 2 L of normal saline, IV Rocephin and IV Tylenol The patient was admitted to general medicine floor and is being treated and evaluated for following conditions #Sepsis secondary to urological origin Patient presented with suprapubic discomfort, burning micturition, generalized weakness and was found to have elevated white count, bandemia, lactic acidosis, temperature 101.4, HR 130 plus UA picture is consistent with sepsis secondary to urological origin. Meets SIRS crieteria. CT scan done in December 2016 showed multiple bilateral renal cysts. -Monitor fever and WBC curve -IV ceftriaxone day3 -Blood culture positive for gram-positive bri/GNR pending sensitivities -urine culture positive for Escherichia coli, pansensitive -Tylenol for fever -Infectious disease specialist was consulted Right femoral vein DVT Given her dilated lower extremity swelling , ultrasound lower extremities was done to rule out DVT. she was found to have Nonocclusive thrombus in the right proximal femoral vein. * Started on IV heparin drip * Vascular surgery consulted * Monitoring hemoglobin closely * Stool guaiac-positive * Hemoglobin remained stable * IF she develops GI bleed and/or decreasing hematocrit, an IVC filter placement would be reasonable with cessation of the anticoagulation until the source of GI bleed is found. * Because of unplanned weight loss and unprovoked DVT, it is reasonable to workup the patient for an occult malignancy. polymicrobial sepsis/diverticulitis/colitis Patient reported loose watery stools since presenting to ER. Denies any nausea, vomiting. However she has 10 out of 10 abdominal pain with rebound tenderness. Most possibly viral gastroenteritis versus C. difficile diarrhea from antibiotics/malignancy given weight loss/peritonitis from bacteremia. The positive blood cultures,GPR and GNR are more difficult to explain. Given her lower abdominal tenderness and CT scan findings suggestive of thickening of distal descending colon and sigmoid colon, raising concern for diverticulitis/ COLITIS or an underlying neoplasm. Of note her unprovoked right leg DVT might increase the suspicion for an underlying malignancy. * CAT scan abdomen and pelvis with oral and IV contrast reveals an interval increase in the bilateral pleural effusions, with bilateral densities and a filling defect in a right lower lobe pulmonary vessel; thickening of the large bowel wall at the distal descending/proximal sigmoid colon, more prominent compared to the previous study; moderate ascites, with no definite free intra- abdominal/intrapelvic air * Follow-up C. difficile- neg * Follow-up blood cultures- GPR and GNR. * Continue IV Flagyl 500 mg IV every 8- day3 * Continue ceftriaxone-day 3 * Follow-up surgical recommendations-no need for emergent surgical exploration * Follow-up Gastro recommendations Pulmonary embolism Patient was found to have right lower extremity DVT. She was on IV heparin drip. CAT scan abdomen was done which showed findings suggestive of pulmonary embolism. However given her recent exposure to contrast Will do CT angiogram on 02/25 for any pulmonary embolism. * Sales Assistant Institutional Sales was consulted * Meanwhile will continue IV heparin drip * Please follow-up CT angiogram 02/25 for PE * Please follow pulmonary recommendations #SEN Patient presenting creatinine of 1.2-- basline 0.9 likely secondary to dehydration and sepsis of urological origin. She received 2 L of normal saline in ED -Holding off IVF for now. -cr improved 0.9 after 2 L of hydration -Monitor creatinine closely - avoid nephrotoxins #Lactic acidosis Patient presenting with lactic acid of 2.6 and anion gap of 17. Likely secondary to sepsis -Repeat lactate after 3 hours- 0.9 #Anemia Patient is presenting with H/H of 9.7/30.7 in setting of low MCV and MCH likely iron deficiency -Guaiac all stools -Hemoglobin remained stable despite being on IV heparin #Thrombocytosis Likely reactive to sepsis -Monitor platelet count #Bilateral lower extremity edema extending upto thighs more so on Right Patient has history of chronic lower extremity edema, proBNP 2730 -Echocardiogram showed normal ejection fraction with stage I diastolic dysfunction. Right ventricle systolic pressure 33. #Nonspecific lucencies in the spine largest measuring 9 mm in the S1. Patient will require further evaluation with can be done as an outpatient basis. unstageble pressure injury Patient was found to have 5x 9 cm area of poorly blanching erythema to buttocks, coccyx with the left buttocks 0.8x0.5 cm intact skin and right buttock 0.3 x 0.4 cm unstageable pressure injury. * Cleanse buttocks wounds with normal saline followed by hydrocolloid dressing every 3 days * Apply moisture barrier to periwound ski DNR/DNI heart healthy diet DVT prophylaxis with SQ heparin Problem List: 1. Lactic acid acidosis 2. Leukocytosis 3. Sepsis 4. UTI (urinary tract infection) 5. Hypokalemia Pain Ratin Pain Location: abd Pain Goal: Remain pain free Pain Plan: Tylenol Tomorrow's Labs & Rationales: CbC BEP
[2017-02-25 08:05] LABS: ABSOLUTE BASOPHIL COUNT 0 /CUMM (0.0-0.2); ABSOLUTE EOSINOPHIL COUNT 0 /CUMM (0.0-0.7); ABSOLUTE LYMPH COUNT 0.7 /CUMM (1.2-3.4); BASOPHIL % 0 % (0.0-2.0); EOSINOPHIL % 0 % (0-5); MEAN CORPUSCULAR HGB 25.8 PG (27.0-31.0); MEAN CORPUSCULAR VOLUME 80.6 FL (81.0-99.0)
[2017-02-25 08:08] LABS: ABSOLUTE GRANULOCYTE CT 29.6 /CUMM (1.4-6.5); ABSOLUTE MONOCYTE COUNT 0.5 /CUMM (0.10-0.60); GRANULOCYTE % 96.1 % (42.2-75.2); MEAN PLATELET VOLUME 7.9 FL (7.4-10.4); PLATELET COUNT 406 /CUMM (130-400); RBC DISTRIBUTION WIDTH 17.5 % (11.5-14.5); RED BLOOD CELL CT 3.47 /CUMM (4.20-5.40)
[2017-02-25 08:14] LABS: WHITE BLOOD CELL COUNT 30.8 /CUMM (4.8-10.8)
[2017-02-25 10:32] LABS: PTT 49 SEC (25-37)
--- NOTE | 2017-02-25 10:43 | PN- General Surgery ---
Subjective Subjective: Patient feels better. She has no abdominal pain. She had 3 loose bowel movements overnight. However the crampy pain has resolved. She complains of excessive belching. There is no nausea or vomiting. She tolerated her breakfast this morning without difficulty. Objective Vital Signs and I&Os Vital Signs Date Time Temp Pulse Resp B/P B/P Pulse O2 O2 Flow FiO2 Mean Ox Delivery Rate 02/25 0800 95 Room Air Room Air 02/25 0635 97.9 94 20 134/70 94 02/25 0000 92 Nasal 2.0L Cannula 02/24 2323 92 Nasal 2.0L Cannula 02/24 2251 98.5 91 18 128/62 90 Room Air 02/24 1430 97.9 86 20 120/60 94 Room Air Intake & Output 02/25 1600 02/25 0800 02/25 0000 02/24 1600 02/24 0800 02/24 0000 Intake Total 448 860.9 964.8 306.5 Output Total 300 450 400 200 200 Balance 148 410.9 564.8 106.5 -200 Intake, IV 328 120.9 364.8 306.5 Intake, Oral 120 740 600 Number 2 1 2 1 1 Bowel Movements Output, Urine 300 450 400 200 200 Patient 225 lb Weight Weight Bed scale Measurement Method Physical Exam: Gen.: She looks well she looks older than her stated age and is in no distress. Alert and oriented 3. HEENT: Anicteric PERRL EOMI Abdomen: Soft mild tenderness with focal involuntary guarding left lower quadrant at ASIS. No evidence of diffuse peritonitis Extremities: Bilateral pitting edema. No cyanosis or clubbing Current Medications: Current Medications Sig/Jacobo Start time Last Medication Dose Route Stop Time Status Admin Acetaminophen 1,000 MG Q12P PRN 02/24 0845 AC N/A 1 UNIT IV Acetaminophen 650 MG Q8 02/22 2200 AC 02/25 PO 0501 Ceftriaxone Sodium 1,000 MG DAILY 02/23 1000 AC 02/25 IV 0939 Heparin Sodium 4,966 UNIT BOLUS ONE 02/25 0000 DC 02/25 (Porcine) IV 02/25 0001 0040 Heparin Sodium 25,000 UNIT Q24H 02/22 2215 AC 02/24 (Porcine) IV 2009 Sodium Chloride 500 ML Metronidazole 500 MG IQ8 02/24 0800 AC 02/25 N/A 1 UNIT IV 0746 Results Last 48 Hours of Labs: Laboratory Tests 02/25 02/25 02/25 0906 0730 0600 Chemistry Sodium (137 - 145 mmol/L) 137 Potassium (3.5 - 5.1 mmol/L) 4.2 Chloride (98 - 107 mmol/L) 106 Carbon Dioxide (22 - 30 mmol/L) 20 L Anion Gap (5 - 16) 12 BUN (7 - 17 mg/dL) 33 H Creatinine (0.5 - 1.0 mg/dL) 1.0 Estimated GFR (>60 ml/min) 55 L BUN/Creatinine Ratio (7 - 25 %) 33.0 H Coagulation APTT (25 - 37 SEC) 49 H Cancelled Hematology CBC w Diff MAN DIFF ORDERED WBC (4.8 - 10.8 /CUMM) 30.8 *H RBC (4.20 - 5.40 /CUMM) 3.47 L Hgb (12.0 - 16.0 G/DL) 9.0 L Hct (37 - 47 %) 28.0 L MCV (81.0 - 99.0 FL) 80.6 L MCH (27.0 - 31.0 PG) 25.8 L RDW (11.5 - 14.5 %) 17.5 H Plt Count (130 - 400 /CUMM) 406 H MPV (7.4 - 10.4 FL) 7.9 Gran % (42.2 - 75.2 %) 96.1 H Lymphocytes % (20.5 - 51.1 %) 2.4 L Monocytes % (1.7 - 9.3 %) 1.5 L Eosinophils % (0 - 5 %) 0 Basophils % (0.0 - 2.0 %) 0 Absolute Granulocytes (1.4 - 6.5 /CUMM) 29.6 H Segmented Neutrophils (42.2 - 75.2 %) 79 H Band Neutrophils (0.0 - 5.0 %) 18 H Absolute Lymphocytes (1.2 - 3.4 /CUMM) 0.7 L Lymphocytes (20.5 - 51.1 %) 2 L Monocytes (1.7 - 9.3 %) 1 L Absolute Monocytes (0.10 - 0.60 /CUMM) 0.5 Absolute Eosinophils (0.0 - 0.7 /CUMM) 0 Absolute Basophils (0.0 - 0.2 /CUMM) 0 Platelet Estimate (ADEQUATE) ADEQUATE Hypochromic-Microcytic 2+ Anisocytosis 1+ PUBS MCHC (33.0 - 37.0 G/DL) 32.0 L 02/25 02/24 02/24 0320 2215 1441 Coagulation PT (9.4 - 12.5 SEC) 20.2 H INR (0.90 - 1.19) 1.94 H APTT (25 - 37 SEC) 108 *H 44 H 107 *H 02/24 02/24 0739 0030 Chemistry Sodium (137 - 145 mmol/L) 138 Potassium (3.5 - 5.1 mmol/L) 3.7 Chloride (98 - 107 mmol/L) 106 Carbon Dioxide (22 - 30 mmol/L) 21 L Anion Gap (5 - 16) 10 BUN (7 - 17 mg/dL) 24 H Creatinine (0.5 - 1.0 mg/dL) 0.9 Estimated GFR (>60 ml/min) > 60 BUN/Creatinine Ratio (7 - 25 %) 26.7 H Coagulation APTT (25 - 37 SEC) 42 H 43 H Hematology CBC w Diff MAN DIFF ORDERED MAN DIFF ORDERED WBC (4.8 - 10.8 /CUMM) 20.0 H 22.4 H RBC (4.20 - 5.40 /CUMM) 3.57 L 3.39 L Hgb (12.0 - 16.0 G/DL) 9.3 L 8.8 L Hct (37 - 47 %) 28.7 L 27.3 L MCV (81.0 - 99.0 FL) 80.5 L 80.4 L MCH (27.0 - 31.0 PG) 26.1 L 25.8 L RDW (11.5 - 14.5 %) 17.1 H 16.9 H Plt Count (130 - 400 /CUMM) 404 H 407 H MPV (7.4 - 10.4 FL) 8.0 7.7 Gran % (42.2 - 75.2 %) 97.5 H 93.9 H Lymphocytes % (20.5 - 51.1 %) 1.7 L 3.7 L Monocytes % (1.7 - 9.3 %) 0.8 L 2.4 Eosinophils % (0 - 5 %) 0 0 Basophils % (0.0 - 2.0 %) 0 0 Absolute Granulocytes (1.4 - 6.5 /CUMM) 19.5 H 21.0 H Segmented Neutrophils (42.2 - 75.2 %) 72 94 H Band Neutrophils (0.0 - 5.0 %) 25 H 2 Absolute Lymphocytes (1.2 - 3.4 /CUMM) 0.3 L 0.8 L Lymphocytes (20.5 - 51.1 %) 2 L 1 L Monocytes (1.7 - 9.3 %) 1 L 3 Absolute Monocytes (0.10 - 0.60 /CUMM) 0.2 0.5 Absolute Eosinophils (0.0 - 0.7 /CUMM) 0 0 Absolute Basophils (0.0 - 0.2 /CUMM) 0 0 Platelet Estimate (ADEQUATE) VERIFIED BY SMEAR INCREASED Normocytic RBCs VERIFIED Normochromic RBCs VERIFIED Polychromasia 1+ Hypochromic-Microcytic 1+ Poikilocytosis 1+ Ovalocytes 1+ PUBS MCHC (33.0 - 37.0 G/DL) 32.4 L 32.1 L Other Body Source Fld Total RBCs Counted (%) 100 02/23 02/23 1845 1612 Coagulation APTT (25 - 37 SEC) 33 Hematology CBC w Diff MAN DIFF ORDERED WBC (4.8 - 10.8 /CUMM) 22.7 H RBC (4.20 - 5.40 /CUMM) 3.31 L Hgb (12.0 - 16.0 G/DL) 8.6 L Hct (37 - 47 %) 26.8 L MCV (81.0 - 99.0 FL) 80.9 L MCH (27.0 - 31.0 PG) 26.0 L RDW (11.5 - 14.5 %) 17.5 H Plt Count (130 - 400 /CUMM) 414 H MPV (7.4 - 10.4 FL) 7.6 Gran % (42.2 - 75.2 %) 95.1 H Lymphocytes % (20.5 - 51.1 %) 2.6 L Monocytes % (1.7 - 9.3 %) 2.3 Eosinophils % (0 - 5 %) 0 Basophils % (0.0 - 2.0 %) 0 Absolute Granulocytes (1.4 - 6.5 /CUMM) 21.6 H Segmented Neutrophils (42.2 - 75.2 %) 82 H Band Neutrophils (0.0 - 5.0 %) 14 H Absolute Lymphocytes (1.2 - 3.4 /CUMM) 0.6 L Lymphocytes (20.5 - 51.1 %) 3 L Absolute Monocytes (0.10 - 0.60 /CUMM) 0.5 Eosinophils (0 - 5.0 %) 1 Absolute Eosinophils (0.0 - 0.7 /CUMM) 0 Absolute Basophils (0.0 - 0.2 /CUMM) 0 Platelet Estimate (ADEQUATE) ADEQUATE Poikilocytosis FEW Anisocytosis 1+ Macrocytic Cells FEW Ovalocytes FEW PUBS MCHC (33.0 - 37.0 G/DL) 32.1 L Assessment/Plan Assessment/Plan 71-year-old woman with unusual presentation for indeterminate colitis. Clinically her symptoms have improved. She has persistent but improved left lower quadrant focal peritonitis. Her diarrhea is improving. Her fevers are improved as well. However her leukocytosis appears to be worsening. Cultures thus far show Escherichia coli and blood and urine. There is also a gram- positive bri the blood, likely anaerobe. For now recommend continued medical management. Surgical intervention would be performed if her condition deteriorates. Problem List: 1. Colitis
[2017-02-25 14:23] VITALS: BP 130/60
--- NOTE | 2017-02-25 14:37 | PN- Att Addend ---
Attending Addendum Attending Brief Note Patient comfortable in bed today has had this abdominal pain diarrhea treat bowel movements overnight and now she is improved tolerated breakfast. Her vital signs are stable she has no fever this morning patient was followed by infectious diseases a polymicrobial sepsis. Only change is that her white count today is up to 30,800 with her hemoglobin is 9 hematocrit 28 which is stable issues being treated for DVT and now a questionable PE with IV heparin monitoring her counts closely. BUN is 33 creatinine 1.0 (had a SEN on admission Surgery suggested to continue with medical treatment the stools are negative for C. difficile. We'll check with infectious diseases regarding the increase in the white count if there is any need to adjust antibiotic therapy. Will also need GI evaluation Cisse CAT scan showed some ascites and thickening of the mucosa in the colon and a malignancy cannot be ruled out Intake & Output 02/25 1600 02/25 0400 02/24 1600 02/24 0400 02/23 1600 02/23 0400 Intake Total 448 860.9 1271.3 100 Output Total 302 450 600 200 700 450 Balance 146 410.9 671.3 -200 -600 -450 Intake, IV 328 120.9 671.3 Intake, Oral 120 740 600 100 Number 2 1 3 1 8 Bowel Movements Output, Stool 2 500 Output, Urine 300 450 600 200 200 450 Patient 162 lb 146 lb 150 lb Weight Weight Bed scale Standing Scale Chair scale Measurement Method Current Medications Sig/Jacobo Start time Last Medication Dose Route Stop Time Status Admin Acetaminophen 1,000 MG Q12P PRN 02/24 0845 AC N/A 1 UNIT IV Acetaminophen 650 MG Q8 02/22 2200 AC 02/25 PO 1358 Ceftriaxone Sodium 1,000 MG DAILY 02/23 1000 AC 02/25 IV 0939 Heparin Sodium 2,950 UNIT ONCE ONE 02/25 1130 DC 02/25 (Porcine) IV 02/25 1131 1133 Heparin Sodium 4,966 UNIT BOLUS ONE 02/25 0000 DC 02/25 (Porcine) IV 02/25 0001 0040 Heparin Sodium 25,000 UNIT Q24H 02/22 2215 AC 02/25 (Porcine) IV 1134 Sodium Chloride 500 ML Metronidazole 500 MG IQ8 02/24 0800 AC 02/25 N/A 1 UNIT IV 0746 Laboratory Tests 02/25/17 0906: APTT 49 H 02/25/17 0730: Anion Gap 12, Estimated GFR 55 L, BUN/Creatinine Ratio 33.0 H, CBC w Diff MAN DIFF ORDERED, RBC 3.47 L, MCV 80.6 L, MCH 25.8 L, RDW 17.5 H, MPV 7.9, Gran % 96.1 H, Lymphocytes % 2.4 L, Monocytes % 1.5 L, Eosinophils % 0, Basophils % 0, Absolute Granulocytes 29.6 H, Segmented Neutrophils 79 H, Band Neutrophils 18 H, Absolute Lymphocytes 0.7 L, Lymphocytes 2 L, Monocytes 1 L , Absolute Monocytes 0.5, Absolute Eosinophils 0, Absolute Basophils 0, Platelet Estimate ADEQUATE, Hypochromic-Microcytic 2+, Anisocytosis 1+, PUBS MCHC 32.0 L 02/25/17 0600: APTT Cancelled 02/25/17 0320: PT 20.2 H, INR 1.94 H, APTT 108 *H 02/24/17 2215: APTT 44 H 02/24/17 1441: APTT 107 *H 02/24/17 0739: Anion Gap 10, Estimated GFR > 60, BUN/Creatinine Ratio 26.7 H, APTT 42 H, CBC w Diff MAN DIFF ORDERED, RBC 3.57 L, MCV 80.5 L, MCH 26.1 L, RDW 17.1 H, MPV 8.0, Gran % 97.5 H, Lymphocytes % 1.7 L, Monocytes % 0.8 L, Eosinophils % 0, Basophils % 0, Absolute Granulocytes 19.5 H, Segmented Neutrophils 72, Band Neutrophils 25 H, Absolute Lymphocytes 0.3 L, Lymphocytes 2 L, Monocytes 1 L , Absolute Monocytes 0.2, Absolute Eosinophils 0, Absolute Basophils 0, Platelet Estimate VERIFIED BY SMEAR, Normocytic RBCs VERIFIED, Normochromic RBCs VERIFIED , PUBS MCHC 32.4 L 02/24/17 0030: APTT 43 H, CBC w Diff MAN DIFF ORDERED, RBC 3.39 L, MCV 80.4 L, MCH 25.8 L, RDW 16.9 H, MPV 7.7, Gran % 93.9 H, Lymphocytes % 3.7 L, Monocytes % 2.4, Eosinophils % 0, Basophils % 0, Absolute Granulocytes 21.0 H, Segmented Neutrophils 94 H, Band Neutrophils 2, Absolute Lymphocytes 0.8 L, Lymphocytes 1 L, Monocytes 3, Absolute Monocytes 0.5, Absolute Eosinophils 0, Absolute Basophils 0, Platelet Estimate INCREASED, Polychromasia 1+, Hypochromic- Microcytic 1+, Poikilocytosis 1+, Ovalocytes 1+, PUBS MCHC 32.1 L, Fld Total RBCs Counted 100 02/23/17 1845: CBC w Diff MAN DIFF ORDERED, RBC 3.31 L, MCV 80.9 L, MCH 26.0 L, RDW 17.5 H, MPV 7.6, Gran % 95.1 H, Lymphocytes % 2.6 L, Monocytes % 2.3, Eosinophils % 0, Basophils % 0, Absolute Granulocytes 21.6 H, Segmented Neutrophils 82 H, Band Neutrophils 14 H, Absolute Lymphocytes 0.6 L, Lymphocytes 3 L, Absolute Monocytes 0.5, Eosinophils 1, Absolute Eosinophils 0, Absolute Basophils 0, Platelet Estimate ADEQUATE, Poikilocytosis FEW, Anisocytosis 1+, Macrocytic Cells FEW, Ovalocytes FEW, PUBS MCHC 32.1 L 02/23/17 1612: APTT 33 02/23/17 0638: Anion Gap 11, Estimated GFR > 60, BUN/Creatinine Ratio 31.1 H, APTT 32, CBC w Diff MAN DIFF ORDERED, RBC 3.41 L, MCV 81.3, MCH 26.0 L, RDW 17.5 H, MPV 7.9, Gran % 94.4 H, Lymphocytes % 3.3 L, Monocytes % 2.1, Eosinophils % 0.1, Basophils % 0.1, Absolute Granulocytes 20.0 H, Segmented Neutrophils 86 H, Band Neutrophils 11 H, Absolute Lymphocytes 0.7 L, Lymphocytes 3 L, Absolute Monocytes 0.5, Absolute Eosinophils 0, Absolute Basophils 0, Platelet Estimate ADEQUATE, Hypochromic-Microcytic 2+, Anisocytosis 1+, PUBS MCHC 31.9 L 02/23/17 0058: Lactic Acid 0.9 02/22/17 1733: Urinalysis LIGHT H, Urine Color YEL, Urine Clarity TURBD H, Urine pH 7.0, Ur Specific [place] 1.020, Urine Protein 100 H, Urine Ketones TRACE H, Urine Nitrite POS H, Urine Bilirubin NEG@ICTO, Urine Urobilinogen 4.0 H, Ur Leukocyte Esterase LARGE H, Ur Microscopic SEDIMENT EXAMINED, Urine RBC 50-75 H, Urine WBC PACKD H, Ur Epithelial Cells MOD H, Urine Bacteria PACKD H, Urine Mucus FEW, Urine Hemoglobin LARGE H, Urine Glucose NEG 02/22/17 1632: Troponin I Cancelled 02/22/17 1630: Anion Gap 17 H, Estimated GFR 44 L, BUN/Creatinine Ratio 20.8, Glucose 108 H, Lactic Acid 2.6 H, Calcium 9.0, Total Bilirubin 1.0, AST 26, ALT 27, Alkaline Phosphatase 126, Troponin I 0.06, Ctt-T-Ejtopwyriye Pept 2730 H, Total Protein 6.3, Albumin 2.9 L, Globulin 3.4, Albumin/Globulin Ratio 0.9 L, CBC w Diff MAN DIFF ORDERED, RBC 3.80 L, MCV 80.6 L, MCH 25.5 L, RDW 17.1 H, MPV 7.3 L, Gran % 97.4 H, Lymphocytes % 1.6 L, Monocytes % 0.9 L, Eosinophils % 0.1, Basophils % 0, Absolute Granulocytes 22.3 H, Segmented Neutrophils 94 H, Band Neutrophils 1, Absolute Lymphocytes 0.4 L, Lymphocytes 4 L, Monocytes 1 L, Absolute Monocytes 0.2, Absolute Eosinophils 0, Absolute Basophils 0, Platelet Estimate VERIFIED BY SMEAR, Normochromic RBCs VERIFIED, Anisocytosis 1+, PUBS MCHC 31.6 L, Fld Total RBCs Counted 100 Microbiology 02/23 1500 STOOL: Clostridium difficile Toxin A & B - COMP 02/23 1732 URINE ROUT: Urine Culture - COMP ESCHERICHIA COLI 02/22 163 BLOOD: Blood Culture - RES ESCHERICHIA COLI GRAM POSITIVE ADEN 02/22 161 BLOOD: Blood Culture - RES GRAM POSITIVE ADEN Microbiology 02/23 1500 STOOL: Clostridium difficile Toxin A & B - COMP 02/22 173 URINE ROUT: Urine Culture - COMP ESCHERICHIA COLI 02/22 1630 BLOOD: Blood Culture - RES ESCHERICHIA COLI GRAM POSITIVE ADEN 02/22 161 BLOOD: Blood Culture - RES GRAM POSITIVE ADEN Vital Signs Date Time Temp Pulse Resp B/P B/P Pulse O2 O2 Flow FiO2 Mean Ox Delivery Rate 02/25 1423 97.8 85 20 130/60 93 Room Air 02/25 0800 95 Room Air Room Air 02/25 0635 97.9 94 20 134/70 94 02/25 0000 92 Nasal 2.0L Cannula 02/24 2323 92 Nasal 2.0L Cannula 02/24 2251 98.5 91 18 128/62 90 Room Air
--- NOTE | 2017-02-25 16:45 | CT SCAN REPORT ---
EXAMINATION: CT ANGIOGRAM OF THE CHEST WITH AND WITHOUT CONTRAST (CT PULMONARY ANGIOGRAM FOR PE) CLINICAL INFORMATION: DVT right lower extremity, evaluation for PE COMPARISON: 02/22/2017 chest x-ray and 02/24/2017 CT scan abdomen pelvis TECHNIQUE: Prior to contrast administration, noncontrast localization images were obtained. Subsequently, multidetector volumetric imaging was performed from the thoracic inlet to below the diaphragms following the administration of 80 mL Optiray 350 intravenous contrast. No contrast reaction reported. Sagittal, coronal, and MIP oblique sagittal reformatted images were obtained on the CT workstation, uploaded to PACS, and reviewed. Total exam dose-length product 214.07 mGy-cm. FINDINGS: QUALITY OF STUDY/CONTRAST BOLUS: Satisfactory PULMONARY ARTERIES: No central or segmental pulmonary emboli in the opacified pulmonary arteries. THORACIC AORTA: No aneurysm or dissection. PLEURA: Moderate bilateral pleural effusions noted. No pneumothorax. LUNG: Bilateral pulmonary opacities adjacent to the pleural effusions can represent atelectatic changes. Superimposed pneumonia is not excluded. There is airspace disease in the posterior right upper lobe, close to the superior aspect of the right sided pleural effusion as seen on axial image 17/56 from series 3 which can represent pneumonia. MEDIASTINUM: Normal heart size. No pericardial effusion. No hilar or mediastinal lymphadenopathy. No evidence of septal bowing or right heart strain. CHEST WALL/AXILLA: No axillary or internal mammary lymphadenopathy. OSSEOUS STRUCTURES: No acute or suspicious osseous abnormality. UPPER ABDOMEN: Upper abdominal ascites noted. IMPRESSION: No CT evidence of acute PE in the opacified branches of the pulmonary arteries. Evaluation of the pulmonary arteries in the atelectatic part of the lungs adjacent to the bilateral pleural effusions is limited. Moderate bilateral pleural effusions and adjacent pulmonary atelectatic changes. Superimposed pneumonia cannot be excluded. VTE: negative
--- NOTE | 2017-02-25 18:44 | Cons- Gastroenterology ---
General Information and HPI Consulting Request Date of Consult: 02/25/17 Requested By: Alexei Echevarria MD Reason for Consult: Abnormal colon on imaging Pain, diarrhea Source of Information: patient History of Present Illness: In December the patient had blood per rectum and was told she was mildly anemic and had an abnormal CT scan of the colon. She was told follow-up with gastroenterology but deferred this because she was taking care of her ill sister. The patient normally has 1-2 days of diarrhea every 6 months, otherwise normal bowel movements. She has no other significant GI symptoms. She has lost weight. She is now admitted with diarrhea and lower abdominal pain, first called urosepsis, but now deemed secondary to colonic etiology. She has polymicrobial sepsis. At this time her pain has resolved, and she had no nausea , vomiting, fever. She had a small bowel movement several days ago. There is no family history of GI cancer. She has never had a colonoscopy. Allergies/Medications Allergies: Coded Allergies: shrimp (Severe, SEVERE HIVES 12/29/16) Home Med List: No Known Home Medications Current Medications: Current Medications Sig/Jacobo Start time Last Medication Dose Route Stop Time Status Admin Acetaminophen 1,000 MG Q12P PRN 02/24 0845 AC N/A 1 UNIT IV Acetaminophen 650 MG Q8 02/22 2200 AC 02/25 PO 1358 Ceftriaxone Sodium 1,000 MG DAILY 02/23 1000 AC 02/25 IV 0939 Heparin Sodium 2,950 UNIT ONCE ONE 02/25 1130 DC 02/25 (Porcine) IV 02/25 1131 1133 Heparin Sodium 4,966 UNIT BOLUS ONE 02/25 0000 DC 02/25 (Porcine) IV 02/25 0001 0040 Heparin Sodium 25,000 UNIT Q24H 02/22 2215 AC 02/25 (Porcine) IV 1134 Sodium Chloride 500 ML Metronidazole 500 MG IQ8 02/24 0800 AC 02/25 N/A 1 UNIT IV 1604 Past History Travel History Traveled to [place] past 21 day No Medical History Blood Transfusion Hx: No Neurological: NONE EENT: NONE Cardiovascular: NONE Respiratory: NONE Gastrointestinal: NONE Hepatic: NONE Renal: NONE Musculoskeletal: osteoarthritis Psychiatric: NONE Endocrine: NONE Blood Disorders: DVT Cancer(s): 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 Psychosocial History Where Do You Live? Home Who Do You Live With? self Services at Home: None Primary Language: Faroese Smoking Status: Never Smoked ETOH Use: occasional use Illicit Drug Use: denies illicit drug use Functional Ability ADLs Independent: dressing, eating, toileting, bathing. Ambulation: cane IADLs Independent: shopping, housework, finances, food prep, telephone, transportation , medication admin. 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 Exam & Diagnostic Data Vital Signs and I&O Vital Signs Date Time Temp Pulse Resp B/P B/P Pulse O2 O2 Flow FiO2 Mean Ox Delivery Rate 02/25 1423 97.8 85 20 130/60 93 Room Air 02/25 0800 95 Room Air Room Air 02/25 0635 97.9 94 20 134/70 94 02/25 0000 92 Nasal 2.0L Cannula 02/24 2323 92 Nasal 2.0L Cannula 02/24 2251 98.5 91 18 128/62 90 Room Air Intake & Output 02/25 1600 02/25 0400 02/24 1600 02/24 0400 02/23 1600 02/23 0400 Intake Total 1248 860.9 1271.3 100 Output Total 302 450 600 200 700 450 Balance 946 410.9 671.3 -200 -600 -450 Intake, IV 328 120.9 671.3 Intake, Oral 920 740 600 100 Number 4 1 3 1 8 Bowel Movements Output, Stool 2 500 Output, Urine 300 450 600 200 200 450 Patient 162 lb 146 lb 150 lb Weight Weight Bed scale Standing Scale Chair scale Measurement Method Physical Exam: Abdominal exam benign Results Pertinent Lab Results: Laboratory Tests 02/25 02/25 02/25 0906 0730 0600 Chemistry Sodium (137 - 145 mmol/L) 137 Potassium (3.5 - 5.1 mmol/L) 4.2 Chloride (98 - 107 mmol/L) 106 Carbon Dioxide (22 - 30 mmol/L) 20 L Anion Gap (5 - 16) 12 BUN (7 - 17 mg/dL) 33 H Creatinine (0.5 - 1.0 mg/dL) 1.0 Estimated GFR (>60 ml/min) 55 L BUN/Creatinine Ratio (7 - 25 %) 33.0 H Coagulation APTT (25 - 37 SEC) 49 H Cancelled Hematology CBC w Diff MAN DIFF ORDERED WBC (4.8 - 10.8 /CUMM) 30.8 *H RBC (4.20 - 5.40 /CUMM) 3.47 L Hgb (12.0 - 16.0 G/DL) 9.0 L Hct (37 - 47 %) 28.0 L MCV (81.0 - 99.0 FL) 80.6 L MCH (27.0 - 31.0 PG) 25.8 L RDW (11.5 - 14.5 %) 17.5 H Plt Count (130 - 400 /CUMM) 406 H MPV (7.4 - 10.4 FL) 7.9 Gran % (42.2 - 75.2 %) 96.1 H Lymphocytes % (20.5 - 51.1 %) 2.4 L Monocytes % (1.7 - 9.3 %) 1.5 L Eosinophils % (0 - 5 %) 0 Basophils % (0.0 - 2.0 %) 0 Absolute Granulocytes (1.4 - 6.5 /CUMM) 29.6 H Segmented Neutrophils (42.2 - 75.2 %) 79 H Band Neutrophils (0.0 - 5.0 %) 18 H Absolute Lymphocytes (1.2 - 3.4 /CUMM) 0.7 L Lymphocytes (20.5 - 51.1 %) 2 L Monocytes (1.7 - 9.3 %) 1 L Absolute Monocytes (0.10 - 0.60 /CUMM) 0.5 Absolute Eosinophils (0.0 - 0.7 /CUMM) 0 Absolute Basophils (0.0 - 0.2 /CUMM) 0 Platelet Estimate (ADEQUATE) ADEQUATE Hypochromic-Microcytic 2+ Anisocytosis 1+ PUBS MCHC (33.0 - 37.0 G/DL) 32.0 L 02/25 02/24 02/24 0320 2215 1441 Coagulation PT (9.4 - 12.5 SEC) 20.2 H INR (0.90 - 1.19) 1.94 H APTT (25 - 37 SEC) 108 *H 44 H 107 *H 02/24 02/24 0739 0030 Chemistry Sodium (137 - 145 mmol/L) 138 Potassium (3.5 - 5.1 mmol/L) 3.7 Chloride (98 - 107 mmol/L) 106 Carbon Dioxide (22 - 30 mmol/L) 21 L Anion Gap (5 - 16) 10 BUN (7 - 17 mg/dL) 24 H Creatinine (0.5 - 1.0 mg/dL) 0.9 Estimated GFR (>60 ml/min) > 60 BUN/Creatinine Ratio (7 - 25 %) 26.7 H Coagulation APTT (25 - 37 SEC) 42 H 43 H Hematology CBC w Diff MAN DIFF ORDERED MAN DIFF ORDERED WBC (4.8 - 10.8 /CUMM) 20.0 H 22.4 H RBC (4.20 - 5.40 /CUMM) 3.57 L 3.39 L Hgb (12.0 - 16.0 G/DL) 9.3 L 8.8 L Hct (37 - 47 %) 28.7 L 27.3 L MCV (81.0 - 99.0 FL) 80.5 L 80.4 L MCH (27.0 - 31.0 PG) 26.1 L 25.8 L RDW (11.5 - 14.5 %) 17.1 H 16.9 H Plt Count (130 - 400 /CUMM) 404 H 407 H MPV (7.4 - 10.4 FL) 8.0 7.7 Gran % (42.2 - 75.2 %) 97.5 H 93.9 H Lymphocytes % (20.5 - 51.1 %) 1.7 L 3.7 L Monocytes % (1.7 - 9.3 %) 0.8 L 2.4 Eosinophils % (0 - 5 %) 0 0 Basophils % (0.0 - 2.0 %) 0 0 Absolute Granulocytes (1.4 - 6.5 /CUMM) 19.5 H 21.0 H Segmented Neutrophils (42.2 - 75.2 %) 72 94 H Band Neutrophils (0.0 - 5.0 %) 25 H 2 Absolute Lymphocytes (1.2 - 3.4 /CUMM) 0.3 L 0.8 L Lymphocytes (20.5 - 51.1 %) 2 L 1 L Monocytes (1.7 - 9.3 %) 1 L 3 Absolute Monocytes (0.10 - 0.60 /CUMM) 0.2 0.5 Absolute Eosinophils (0.0 - 0.7 /CUMM) 0 0 Absolute Basophils (0.0 - 0.2 /CUMM) 0 0 Platelet Estimate (ADEQUATE) VERIFIED BY SMEAR INCREASED Normocytic RBCs VERIFIED Normochromic RBCs VERIFIED Polychromasia 1+ Hypochromic-Microcytic 1+ Poikilocytosis 1+ Ovalocytes 1+ PUBS MCHC (33.0 - 37.0 G/DL) 32.4 L 32.1 L Other Body Source Fld Total RBCs Counted (%) 100 02/23 02/23 1845 1612 Coagulation APTT (25 - 37 SEC) 33 Hematology CBC w Diff MAN DIFF ORDERED WBC (4.8 - 10.8 /CUMM) 22.7 H RBC (4.20 - 5.40 /CUMM) 3.31 L Hgb (12.0 - 16.0 G/DL) 8.6 L Hct (37 - 47 %) 26.8 L MCV (81.0 - 99.0 FL) 80.9 L MCH (27.0 - 31.0 PG) 26.0 L RDW (11.5 - 14.5 %) 17.5 H Plt Count (130 - 400 /CUMM) 414 H MPV (7.4 - 10.4 FL) 7.6 Gran % (42.2 - 75.2 %) 95.1 H Lymphocytes % (20.5 - 51.1 %) 2.6 L Monocytes % (1.7 - 9.3 %) 2.3 Eosinophils % (0 - 5 %) 0 Basophils % (0.0 - 2.0 %) 0 Absolute Granulocytes (1.4 - 6.5 /CUMM) 21.6 H Segmented Neutrophils (42.2 - 75.2 %) 82 H Band Neutrophils (0.0 - 5.0 %) 14 H Absolute Lymphocytes (1.2 - 3.4 /CUMM) 0.6 L Lymphocytes (20.5 - 51.1 %) 3 L Absolute Monocytes (0.10 - 0.60 /CUMM) 0.5 Eosinophils (0 - 5.0 %) 1 Absolute Eosinophils (0.0 - 0.7 /CUMM) 0 Absolute Basophils (0.0 - 0.2 /CUMM) 0 Platelet Estimate (ADEQUATE) ADEQUATE Poikilocytosis FEW Anisocytosis 1+ Macrocytic Cells FEW Ovalocytes FEW PUBS MCHC (33.0 - 37.0 G/DL) 32.1 L 02/23 02/23 0638 0058 Chemistry Sodium (137 - 145 mmol/L) 139 Potassium (3.5 - 5.1 mmol/L) 3.8 Chloride (98 - 107 mmol/L) 108 H Carbon Dioxide (22 - 30 mmol/L) 20 L Anion Gap (5 - 16) 11 BUN (7 - 17 mg/dL) 28 H Creatinine (0.5 - 1.0 mg/dL) 0.9 Estimated GFR (>60 ml/min) > 60 BUN/Creatinine Ratio (7 - 25 %) 31.1 H Lactic Acid (0.7 - 2.1 mmol/L) 0.9 Coagulation APTT (25 - 37 SEC) 32 Hematology CBC w Diff MAN DIFF ORDERED WBC (4.8 - 10.8 /CUMM) 21.2 H RBC (4.20 - 5.40 /CUMM) 3.41 L Hgb (12.0 - 16.0 G/DL) 8.8 L Hct (37 - 47 %) 27.7 L MCV (81.0 - 99.0 FL) 81.3 MCH (27.0 - 31.0 PG) 26.0 L RDW (11.5 - 14.5 %) 17.5 H Plt Count (130 - 400 /CUMM) 414 H MPV (7.4 - 10.4 FL) 7.9 Gran % (42.2 - 75.2 %) 94.4 H Lymphocytes % (20.5 - 51.1 %) 3.3 L Monocytes % (1.7 - 9.3 %) 2.1 Eosinophils % (0 - 5 %) 0.1 Basophils % (0.0 - 2.0 %) 0.1 Absolute Granulocytes (1.4 - 6.5 /CUMM) 20.0 H Segmented Neutrophils (42.2 - 75.2 %) 86 H Band Neutrophils (0.0 - 5.0 %) 11 H Absolute Lymphocytes (1.2 - 3.4 /CUMM) 0.7 L Lymphocytes (20.5 - 51.1 %) 3 L Absolute Monocytes (0.10 - 0.60 /CUMM) 0.5 Absolute Eosinophils (0.0 - 0.7 /CUMM) 0 Absolute Basophils (0.0 - 0.2 /CUMM) 0 Platelet Estimate (ADEQUATE) ADEQUATE Hypochromic-Microcytic 2+ Anisocytosis 1+ PUBS MCHC (33.0 - 37.0 G/DL) 31.9 L Imaging/Other Studies: CT scan of the abdomen and pelvis: IMPRESSION: 1. There has been moderate interval increase in the ascites when compared to the prior study. The small bowel loops are mildly dilated and fluid-filled, but there is no definite evidence of obstruction at present. There is thickening of the wall of the distal descending and proximal sigmoid colon, more prominent compared to the prior study. This may be related to diverticulitis although tumor cannot be excluded. There is also slight thickening of the distal sigmoid colon and rectal leone, which may be consistent with colitis. 2. The liver has low attenuation consistent with hepatic steatosis. Stool for C. difficile toxin negative. Assessment/Plan Assessment/Recommendations: The patient presents with an inflammatory lesion in the sigmoid and descending colon, with polymicrobial sepsis, persistent and indeed worsening leukocytosis, but a benign abdomen at this point. The presentation is concerning for a locally perforated neoplasm, versus diverticulitis. Would continue antibiotics and readdress leukocytosis with both infectious disease and surgery. Assuming that emergent surgery is not needing during this hospitalization, the patient will be seen in GI follow-up as an outpatient and colonoscopy will be performed once there is resolution of the inflammation. Consult Acknowledgment - Thank you for your consult request.
[2017-02-25 19:29] LABS: PTT 31 SEC (25-37)
[2017-02-25 23:27] VITALS: BP 126/66
[2017-02-26 04:45] LABS: ABSOLUTE BASOPHIL COUNT 0 /CUMM (0.0-0.2); ABSOLUTE EOSINOPHIL COUNT 0 /CUMM (0.0-0.7); ABSOLUTE GRANULOCYTE CT 36.7 /CUMM (1.4-6.5); ABSOLUTE LYMPH COUNT 0.7 /CUMM (1.2-3.4); ABSOLUTE MONOCYTE COUNT 0.6 /CUMM (0.10-0.60); BASOPHIL % 0 % (0.0-2.0); EOSINOPHIL % 0 % (0-5); GRANULOCYTE % 96.7 % (42.2-75.2); HEMATOCRIT 28.8 % (37-47); MEAN CORPUSCULAR HGB 25.7 PG (27.0-31.0); MEAN CORPUSCULAR HGB CONC 31.8 G/DL (33.0-37.0); MEAN CORPUSCULAR VOLUME 80.7 FL (81.0-99.0); PLATELET COUNT 431 /CUMM (130-400); RBC DISTRIBUTION WIDTH 17.8 % (11.5-14.5); RED BLOOD CELL CT 3.57 /CUMM (4.20-5.40)
[2017-02-26 05:13] LABS: PTT 108 SEC (25-37)
[2017-02-26 06:13] VITALS: BP 136/72
--- NOTE | 2017-02-26 11:18 | PN- Infect Dx ---
Subjective Subjective: Afebrile. She notes some discomfort in the right chest. She has no abdominal pain or dysuria. She continues to have loose stools. Objective Last 24 Hrs of Vital Signs/I&O Vital Signs Date Time Temp Pulse Resp B/P B/P Pulse O2 O2 Flow FiO2 Mean Ox Delivery Rate 02/26 0613 98.0 86 20 136/72 93 02/25 2327 97.9 78 20 126/66 93 Room Air 02/25 1423 97.8 85 20 130/60 93 Room Air Intake & Output 02/26 1600 02/26 0800 02/26 0000 Intake Total 505.7 931 Output Total 10 4 Balance 495.7 927 Intake, IV 385.7 451 Intake, Oral 120 480 Number 3 2 Bowel Movements Output, 10 Emesis Output, Stool 4 Patient 164 lb 162 lb Weight Weight Bed scale Measurement Method Physical Exam Other Physical Findings: She appears comfortable, though mildly dyspneic, in no acute distress Lungs decreased breath sounds both bases Heart regular rhythm with no murmur Abdomen is distended, nontender, with no guarding or rebound, and with positive bowel sounds Extremities 2+ edema both lower extremities unchanged Results Last 24 Hours of Lab Results: Laboratory Tests 02/26 02/25 0423 1900 Chemistry Sodium (137 - 145 mmol/L) 137 Potassium (3.5 - 5.1 mmol/L) 4.1 Chloride (98 - 107 mmol/L) 105 Carbon Dioxide (22 - 30 mmol/L) 19 L Anion Gap (5 - 16) 13 BUN (7 - 17 mg/dL) 38 H Creatinine (0.5 - 1.0 mg/dL) 0.9 Estimated GFR (>60 ml/min) > 60 BUN/Creatinine Ratio (7 - 25 %) 42.2 H Coagulation APTT (25 - 37 SEC) 108 *H 31 Hematology CBC w Diff MAN DIFF ORDERED WBC (4.8 - 10.8 /CUMM) 38.0 *H RBC (4.20 - 5.40 /CUMM) 3.57 L Hgb (12.0 - 16.0 G/DL) 9.2 L Hct (37 - 47 %) 28.8 L MCV (81.0 - 99.0 FL) 80.7 L MCH (27.0 - 31.0 PG) 25.7 L RDW (11.5 - 14.5 %) 17.8 H Plt Count (130 - 400 /CUMM) 431 H MPV (7.4 - 10.4 FL) 8.0 Gran % (42.2 - 75.2 %) 96.7 H Lymphocytes % (20.5 - 51.1 %) 1.7 L Monocytes % (1.7 - 9.3 %) 1.6 L Eosinophils % (0 - 5 %) 0 Basophils % (0.0 - 2.0 %) 0 Absolute Granulocytes (1.4 - 6.5 /CUMM) 36.7 H Segmented Neutrophils (42.2 - 75.2 %) 88 H Band Neutrophils (0.0 - 5.0 %) 8 H Absolute Lymphocytes (1.2 - 3.4 /CUMM) 0.7 L Lymphocytes (20.5 - 51.1 %) 4 L Absolute Monocytes (0.10 - 0.60 /CUMM) 0.6 Absolute Eosinophils (0.0 - 0.7 /CUMM) 0 Absolute Basophils (0.0 - 0.2 /CUMM) 0 Platelet Estimate (ADEQUATE) INCREASED Hypochromic-Microcytic 1+ Poikilocytosis FEW Anisocytosis 1+ PUBS MCHC (33.0 - 37.0 G/DL) 31.8 L Other Body Source Fld Total RBCs Counted (%) 100 Last 24 Hours of Caleb Results: Blood cultures 2 February 22 positive for Clostridium species, with Escherichia coli sensitive to all antibiotics tested isolated from one bottle Stool C. difficile February 23 negative Recent Imaging Studies: CTA of the chest February 25 no evidence of pulmonary emboli, but with moderate bilateral pleural effusions and adjacent atelectasis Echocardiogram February 24 reveals a normal LV ejection fraction with stage I diastolic dysfunction Assessment/Plan Impression: Polymicrobial sepsis, with Clostridium and Escherichia coli isolated from the blood cultures, presumably secondary to an intra-abdominal process, with recent abdominal tenderness and distention, and suspect that she has either an underlying malignancy or diverticulitis, with a localized peritonitis. Her white blood cell count continues to increase, though she has decreased abdominal tenderness, and suspect that she may be developing an abscess. She has been evaluated by Surgery, with their evaluation noted. She remains on Ceftriaxone and Flagyl but, based on her final cultures, her antibiotics can be narrowed. Her pleural effusions may be multifactorial, and she does appear dyspneic, though she is oxygenating well. She remains on Heparin for her right lower extremity DVT, with the CTA negative for pulmonary emboli. Suggestion: 1. Repeat CT of the abdomen and pelvis with oral and IV contrast 2. Further management of her bilateral pleural effusions per Medicine 3. Discontinue Ceftriaxone and Flagyl 4. Begin Unasyn 3 g IV every 6 hours
[2017-02-26 11:55] VITALS: BP 128/72
[2017-02-26 12:22] LABS: PTT 93 SEC (25-37)
[2017-02-26 12:55] LABS: ABSOLUTE BASOPHIL COUNT 0 /CUMM (0.0-0.2); ABSOLUTE EOSINOPHIL COUNT 0 /CUMM (0.0-0.7); ABSOLUTE GRANULOCYTE CT 22.8 /CUMM (1.4-6.5); ABSOLUTE LYMPH COUNT 0.6 /CUMM (1.2-3.4); ABSOLUTE MONOCYTE COUNT 0.5 /CUMM (0.10-0.60); BASOPHIL % 0.1 % (0.0-2.0); EOSINOPHIL % 0 % (0-5); GRANULOCYTE % 95.1 % (42.2-75.2); HEMATOCRIT 33.3 % (37-47); MEAN CORPUSCULAR HGB 24.9 PG (27.0-31.0); MEAN CORPUSCULAR HGB CONC 30.2 G/DL (33.0-37.0); MEAN CORPUSCULAR VOLUME 82.4 FL (81.0-99.0); MEAN PLATELET VOLUME 8.4 FL (7.4-10.4); PLATELET COUNT 452 /CUMM (130-400); RBC DISTRIBUTION WIDTH 17.8 % (11.5-14.5); RED BLOOD CELL CT 4.05 /CUMM (4.20-5.40)
--- NOTE | 2017-02-26 13:24 | Event Note ---
Event Note Event Note: The nurse in charge of the patient call us around 12 pm. As the patient become tachypneic and tachycardic and she started to complain off difficulty breathing, the patient was placed on nasal cannula oxygen. on exam she was in respiratory distress, sweating, tachycardic and her ABD was distended nontender. Initially her blood pressure was within acceptable amount 110/75. we order Labs: CBC, ABG, BEP, lactic acid, Trop and EKG. Also, we obtain chest x-ray old the orders placed as stat. It take time as the nurse face difficulty finding and access to do her blood, also the respiratory therapist finding difficulty to obtain her ABG. Patient was placed on BiPAP due to her tachypnea as her respiratory rate more than 30 bpm. Despite that the patient still in respiratory distress, she was afebrile but she was on [id number] Tylenol. Around 1:30 the patient become hypotensive and her blood pressure was 66 SBP via dopplar, so we transferred the patient to the ICU and was started on IV fluid boluses. We notified the surgeon Dr. Jacobs as they were concerned of possible perforation. ABG came back as a metabolic acidosis, her CBC showed stable H &H. basic electrolyte came back abnormal with SEN and anion gap metabolic acidosis. Around 1:40 PM radiologist notifies regarding the chest x-ray finding of subdiaphragmatic extraluminal air which is consistent with hollow viscus perforation. Dr. Jacobs notified about the results and he discuss the treatment options with the patient and her brother John. Her brother John notified and updated about her situation.
--- NOTE | 2017-02-26 13:44 | RADIOLOGY REPORT ---
EXAMINATION: XR PORTABLE CHEST CLINICAL INFORMATION: Shortness of breath, tachycardia. COMPARISON: Chest radiograph done on 02/22/2017. TECHNIQUE: Portable frontal view of the chest was obtained. FINDINGS: Evidence of extraluminal subdiaphragmatic air noted bilaterally. Lower lung volume is present bilaterally. Bibasilar airspace disease is noted, may represent hypoventilatory, atelectatic changes. The remainder of the lung benton are clear. The cardiomediastinal silhouette is within normal limits. IMPRESSION: Evidence of subdiaphragmatic extraluminal air, of uncertain etiology, new since 02/22/2017, may represent interval development of a hollow viscus perforation. This critical result was discussed with Dr. Thanh Alejandra at 1:40 PM on 02/26/2017 and it was ascertained that the content and urgency of the report was understood at the time of direct communication.
--- NOTE | 2017-02-26 13:54 | Cons- CRCU ---
Nancy ROTH,[facility] 02/26/17 1354: General Information and HPI History of Present Illness: The patient is 71-year-old woman with past medical history of arthritis, chronic bilateral lower extremity edema presented to [place] ED on 02/22 with complaints of burning during urination and increased frequency and urgency, along with extreme weakness anorexia, and a 10 pound weight loss. At presentation in the ER she was found to have leukocytosis with WBC of 22.9, creatinine of 1.2 baseline 1.0, BNP 2730, and lactic acid 2.6. Her urinalysis was turbid and positive for nitrates and large leukoesterase with packed with WBCs and bacteria. She received 2L of IV normal saline and was started on IV Rocephin, flagyl and IV Tylenol. However she developed worsening abdominal pain and diarrhea since admission with C-diff negative. She had blood cultures growing E-coli and Clostridium species and her antibiotics were changed to IV unasyn after review by Infectious disease property consultant. A CT scan on 02/24/17 showed colonic thickening without free intraabdominal air. She was also found to have a right leg DVT was started on IV heparin drip. An echocardiogram done showed normal EF with no sign of RV strain. However, this morning she developed worsening tachypnea and respiratory distress with hypotension necessitating ICU transfer. However there was concern for colitis intraabdominal malignancy or perforation. Her blood pressure on arrival to the ICU was 70/ doppler but improved to 96/60 mmhg with 2 L bolus of normal saline. Her O2 saturation was 93% on room air and it was felt that her respiratory distress was due to tachypnea from acidosis and sepsis. Her ABG showed metabolic acidosis with PH of 7.28. A chest X-ray showed free air under the diaphragm and she is being evaluated by General surgery for emergent colonic surgery. Of note, she was seen in the [facility] ER 2 months prior to this admission with right-sided abdominal pain and bright red blood in the toilet. At that time, she was found to be afebrile with a white blood count of 14,000, UA with packed WBCs and a CT of the abdomen and pelvis revealing abnormal wall thickening of the distal left and proximal sigmoid colon, discharged on Ciprofloxacin for a presumed urinary tract infection, with no urine culture sent. Allergies/Medications Allergies: Coded Allergies: shrimp (Severe, SEVERE HIVES 12/29/16) Home Med List: No Known Home Medications Review of Systems Review of Systems Constitutional: Reports: malaise, weakness. Denies: chills, fever. EENTM: Denies: nasal congestion, throat pain. Cardiovascular: Denies: chest pain, palpitations, syncope. Respiratory: Reports: short of breath. Denies: cough, hemoptysis, wheezing. GI: Reports: abdominal pain, diarrhea. Denies: nausea, bloody stool. Genitourinary: Reports: see HPI (Dark urine). Past History Travel History Traveled to [place] past 21 day No Medical History Blood Transfusion Hx: No Neurological: NONE EENT: NONE Cardiovascular: NONE Respiratory: NONE Gastrointestinal: NONE Hepatic: NONE Renal: NONE Musculoskeletal: osteoarthritis Psychiatric: NONE Endocrine: NONE Blood Disorders: DVT Cancer(s): NONE GROUP COUNSELOR/Reproductive: NONE Surgical History Surgical History: non-contributory Family History Relations & Conditions If Any: MOTHER (abd aortic aneyrsm). Psychosocial History Where Do You Live? Home Who Do You Live With? self Services at Home: None Primary Language: Danish Smoking Status: Never Smoked ETOH Use: occasional use Illicit Drug Use: denies illicit drug use Functional Ability ADLs Independent: dressing, eating, toileting, bathing. Ambulation: cane IADLs Independent: shopping, housework, finances, food prep, telephone, transportation , medication admin. 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 Exam & Diagnostic Data Last 24 Hrs of Vital Signs/I&O Vital Signs Date Time Temp Pulse Resp B/P B/P Pulse O2 O2 Flow FiO2 Mean Ox Delivery Rate 02/26 2206 50 02/26 2156 153 104/69 02/26 2043 144 66/42 02/26 2029 40 02/26 1600 97.0 112 39 93/70 95 Room Air 02/26 1450 99 Room Air 02/26 1331 95 02/26 1155 98.9 122 34 128/72 97 Nasal 2.0L Cannula 02/26 1130 24 93 Room Air Room Air 02/26 0800 93 Room Air Room Air 02/26 0613 98.0 86 20 136/72 93 02/25 2327 97.9 78 20 126/66 93 Room Air Intake & Output 02/26 1600 02/26 0800 02/26 0000 Intake Total 1999 505.7 931 Output Total 630 10 4 Balance 1370 495.7 927 Intake, IV 2000 385.7 451 Intake, Oral 0 120 480 Number 1 3 2 Bowel Movements Output, 10 Emesis Output, 600 Gastric Drainage Output, Stool 10 4 Output, Urine 20 Patient 164 lb 162 lb Weight Weight Bed scale Measurement Method Physical Exam General Appearance: well developed/nourished, alert, awake, mild distress Head: atraumatic, normal appearance Eyes: Bilateral: PERRL, EOMI. Ears, Nose, Throat: normal pharynx, normal ENT inspection Neck: normal inspection, supple Respiratory: normal breath sounds, chest non-tender, lungs clear Cardiovascular: regular rate/rhythm, normal peripheral pulses Gastrointestinal: soft, no organomegaly, distention, guarding, rebound, tenderness Extremities: normal capillary refill, no edema Neurologic/Psych: awake, alert, oriented x 3 Cranial Nerves: normal hearing, normal speech, PERRL Skin: normal color, warm/dry Pelvic: Feculent urine noted in iglesias catheter Last 48 Hrs of Labs/Caleb: Laboratory Tests 02/26/172134: pH 7.19 *L, pCO2 28 L, pO2 90, HCO3 11 L, ABG O2 Sat (Measured) 92.0 L, P-50 (Temp Corrected) Y, Carboxyhemoglobin 0.3 L, O2 Concentration % 50%, Temperature 97.2, Respiration Rate 20, O2 Delivery Method VENT, Vent Mode CMV, Expiratory Pressure 5, Tidal Volume 500, Phlebotomy Draw Site LINDEN 02/26/172124: Lactic Acid Pending 02/26/172124: Sodium Pending, Potassium Pending, Chloride Pending, Carbon Dioxide Pending, Anion Gap Pending, BUN Pending, Creatinine Pending, Glucose Pending, Calcium Pending, Phosphorus Pending, Magnesium Pending, Total Bilirubin Pending, AST Pending, ALT Pending, Troponin I Pending, Albumin Pending, APTT Pending, CBC w Diff Pending, WBC Pending, RBC Pending, Hgb Pending, Hct Pending, MCV Pending, MCH Pending, RDW Pending, Plt Count Pending, MPV Pending, PUBS MCHC Pending 02/26/17 190: pH 7.07 *L, pCO2 42, pO2 355 H, HCO3 12 L, ABG O2 Sat (Measured) 98.0, P-50 ( Temp Corrected) Y, Carboxyhemoglobin 1.7, O2 Concentration % 100, Temperature 95.8 L, Respiration Rate 12, O2 Delivery Method VENT, Vent Mode AC, Expiratory Pressure 5, Tidal Volume 400, Phlebotomy Draw Site RIGHT RADIAL 02/26/17 1657: Lactic Acid 9.5 H 02/26/17 1305: pH 7.28 *L, pCO2 11 L, pO2 349 H, HCO3 5 L, ABG O2 Sat (Measured) 99.0, P-50 (Temp Corrected) N, Carboxyhemoglobin 0.2 L, O2 Concentration % 100%, Respiration Rate 24, O2 Delivery Method BIPAP, Vent Mode ST, Expiratory Pressure 6, Inspiratory Pressure 14, Phlebotomy Draw Site LEFT RADIAL 02/26/17 1242: Lactic Acid 11.6 H 02/26/17 1242: Anion Gap 25 H, Estimated GFR 40 L, BUN/Creatinine Ratio 31.5 H, Troponin I < 0.01, CBC w Diff NO MAN DIFF REQ, RBC 4.05 L, MCV 82.4, MCH 24.9 L, RDW 17.8 H, MPV 8.4, Gran % 95.1 H, Lymphocytes % 2.6 L, Monocytes % 2.2, Eosinophils % 0, Basophils % 0.1, Absolute Granulocytes 22.8 H, Absolute Lymphocytes 0.6 L, Absolute Monocytes 0.5, Absolute Eosinophils 0, Absolute Basophils 0, PUBS MCHC 30.2 L 02/26/17 1128: APTT 93 H 02/26/17 0423: Anion Gap 13, Estimated GFR > 60, BUN/Creatinine Ratio 42.2 H, APTT 108 *H, CBC w Diff MAN DIFF ORDERED, RBC 3.57 L, MCV 80.7 L, MCH 25.7 L, RDW 17.8 H, MPV 8.0, Gran % 96.7 H, Lymphocytes % 1.7 L, Monocytes % 1.6 L, Eosinophils % 0, Basophils % 0, Absolute Granulocytes 36.7 H, Segmented Neutrophils 88 H, Band Neutrophils 8 H, Absolute Lymphocytes 0.7 L, Lymphocytes 4 L, Absolute Monocytes 0.6, Absolute Eosinophils 0, Absolute Basophils 0, Platelet Estimate INCREASED, Hypochromic-Microcytic 1+, Poikilocytosis FEW, Anisocytosis 1+, PUBS MCHC 31.8 L, Fld Total RBCs Counted 100 02/25/17 1900: APTT 31 02/25/17 0906: APTT 49 H 02/25/17 0730: Anion Gap 12, Estimated GFR 55 L, BUN/Creatinine Ratio 33.0 H, CBC w Diff MAN DIFF ORDERED, RBC 3.47 L, MCV 80.6 L, MCH 25.8 L, RDW 17.5 H, MPV 7.9, Gran % 96.1 H, Lymphocytes % 2.4 L, Monocytes % 1.5 L, Eosinophils % 0, Basophils % 0, Absolute Granulocytes 29.6 H, Segmented Neutrophils 79 H, Band Neutrophils 18 H, Absolute Lymphocytes 0.7 L, Lymphocytes 2 L, Monocytes 1 L , Absolute Monocytes 0.5, Absolute Eosinophils 0, Absolute Basophils 0, Platelet Estimate ADEQUATE, Hypochromic-Microcytic 2+, Anisocytosis 1+, PUBS MCHC 32.0 L 02/25/17 0600: APTT Cancelled 02/25/17 0320: PT 20.2 H, INR 1.94 H, APTT 108 *H Diagnostic Data CXR Results IMPRESSION: Evidence of subdiaphragmatic extraluminal air, of uncertain etiology, new since 02/22/2017, may represent interval development of a hollow viscus perforation. Assessment/Plan Impression/Plan: The patient is 71-year-old woman with past medical history of arthritis, chronic bilateral lower extremity edema presented to [place] ED on 02/22 with complaints of burning during urination and increased frequency and urgency, along with extreme weakness anorexia, and a 10 pound weight loss. She was initially being managed for sepsis of urological origin and a right leg DVT. She subsequently developed diarrhea, abdominal pain, hypotension and tachypnea requiring ICU admission. Chest X-ray shows air under the diaphragm and coupled with the findings of her earlier CT abdomen showing colonic thickening and her feculent urine, there is concern for colonic perforation. She is being evaluated by General Surgery for emergent exploratory laparotomy. After receiving 2 L normal saline bolus a Focused physical exam shows as follows : * Vital signs: Temp 98.9 F, RR 24/min, BP 96/60 mmhg, PO2 93 % on Room air * Cardiopulmonary exam: Chest: Clear to auscultation with no wheeze; Cardiac exam: Normal RRR, S1, S2 normal with no murmurs * Capillary refill: Normal, <2 Seconds * Peripheral pulse evaluation: Normal radial pulse and carotid pulse bilaterally * Skin exam: Skin is warm and dry and has normal appearance Plan 1. 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 Sepsis and hypotension * IV normal saline boluses to keep MAP >65 mmhg * Place Right IJ triple lumen catheter for pressor * Monitor urine output and fluid input output * Repeat lactic acid now, initial lactate was 11.6 3. Metabolic acidosis * Patient has lactic acidosis from sepsis with ABG showing PH 7.26 * Repeat ABG now * Continue IV fluid resuscitation with IV normal saline Boluses * WIll start bicarbonate drip 4. Right leg DVT * IV heparin has been discontinued in anticipation of surgery * Will discuss with vascular surgery about puting an IVC filter post op after patient is stabilized * IN the meantime continue DVT prophylaxis with ALPS DVT prophylaxis ALPS Code status Of note, during resuscitation patient changed her code status from DNR to Full code Problem List: 1. Acute cystitis 2. Leukocytosis 3. Sepsis 4. Anemia Consult Acknowledgment - Thank you for your consult request. Cynthia Chau MD 02/26/17 1412: General Information and HPI Consulting Request Date of Consult: 02/26/17 Requested By: Dr. Echevarria Reason for Consult: Abdominal sepsis, peritonitis and perforation. The patient is critically ill and has been transferred to the ICU for treatmet. Source of Information: patient, old records Exam Limitations: clinical condition Allergies/Medications Current Medications: Current Medications Sig/Jacobo Start time Last Medication Dose Route Stop Time Status Admin Acetaminophen 1,000 MG Q12P PRN 02/24 0845 AC N/A 1 UNIT IV Acetaminophen 650 MG Q8 02/22 2200 AC 02/26 PO 0703 Ampicillin Sodium/ 3,000 MG Q6 02/26 1200 AC Sulbactam Sodium IV Sodium Chloride 100 ML Ceftriaxone Sodium 1,000 MG DAILY 02/23 1000 DC 02/26 IV 0900 Heparin Sodium 10,000 UNIT .STK-MED ONE 02/25 2300 DC (Porcine) IV 02/25 2301 Heparin Sodium 5,100 UNIT BOLUS ONE 02/25 2200 DC 02/25 (Porcine) IV 02/25 2201 2303 Heparin Sodium 25,000 UNIT Q24H 02/22 2215 DC 02/25 (Porcine) IV 2145 Sodium Chloride 500 ML Lorazepam 0.5 MG ONCE ONE 02/26 1300 DC IV 02/26 1301 Metronidazole 500 MG IQ8 02/24 0800 DC 02/26 N/A 1 UNIT IV 0801 Ondansetron HCl 4 MG ONCE ONE 02/26 0145 DC 02/26 PO 02/26 0146 0210 Sodium Chloride 1,000 ML BOLUS ONE 02/26 1330 AC 02/26 IV 02/26 1429 1358 Trimethobenzamide HCl 200 MG ONCE ONE 02/26 0430 DC 02/26 IM 02/26 0431 0441 Review of Systems Review of Systems All Other Systems: Reviewed and Negative Exam & Diagnostic Data Last 24 Hrs of Vital Signs/I&O Vital Signs Date Time Temp Pulse Resp B/P B/P Pulse O2 O2 Flow FiO2 Mean Ox Delivery Rate 02/26 1331 95 02/26 0613 98.0 86 20 136/72 93 02/25 2327 97.9 78 20 126/66 93 Room Air 02/25 1423 97.8 85 20 130/60 93 Room Air Intake & Output 02/26 1600 02/26 0800 02/26 0000 Intake Total 505.7 931 Output Total 10 4 Balance 495.7 927 Intake, IV 385.7 451 Intake, Oral 120 480 Number 3 2 Bowel Movements Output, 10 Emesis Output, Stool 4 Patient 164 lb 162 lb Weight Weight Bed scale Measurement Method Assessment/Plan Other Findings/Comments: I have personally seen and examined the patient, and agree with the resident's assessment and plan as detailled above. Briefly, the patient is a 71 year old, chronicall ill female with a history of arthritis and chronic lower extremity edema, seen in the emergency room 2 months prior to admission with right-sided abdominal pain and bright red blood in the toilet, found to be afebrile with a white blood count of 14,000, UA with packed WBCs and a CT of the abdomen and pelvis revealing abnormal wall thickening of the distal left and proximal sigmoid colon, discharged on Ciprofloxacin for a presumed urinary tract infection.admitted on February 22 after she was brought to the emergency room with extreme weakness, one episode of dysuria several days prior to admission and more chronic complaints over the last several weeks of weakness, anorexia and a 10 pound weight loss. On admission she was febrile to 101.4. Laboratory data revealed a white blood cell count of 23,000, BUN/creatinine 25 and 1.2, lactic acid 2.6, with normal liver enzymes. Urinalysis 50-75 RBCs/packed WBCs. Chest x-ray was negative. Dopplers of both lower extremities revealed a right lower extremity nonocclusive thrombus in the right proximal femoral vein. She was begun on Ceftriaxone and Heparin. Blood and urine cultures positive. ID following and the patient remains on Unasyn. She was transferred to the ICU withing the past hour for metabolic acidosis, respiratory distress and hypotension all consistent with sepsis. Imaging suggests air under the diaphram. Surgery at bedside to address issues. The patient is on BIPAP. Repeat ABG and labs are pending. She is receiving IVF resuscitation. TLC will be placed. the patient is critically ill and will need close follow up. I discussed this with the house staff and asked them to call me with any changes. The patient is DNR/DNI. She may require a bicarbonate drip as well. Potential for poor prognosis. Consult Acknowledgment - Thank you for your consult request.
--- NOTE | 2017-02-26 14:24 | PN- General Surgery ---
Subjective Subjective: Patient became increasingly tachypneic last night. CTA of chest performed showing no evidence for PE. Since then her status has detioroated. continued liquid stool. emesis and distension. At time of evaluation patient was in respiratory distress and BIPAP initiated--subsequent transfer to ICU. Objective Vital Signs and I&Os Vital Signs Date Time Temp Pulse Resp B/P B/P Pulse O2 O2 Flow FiO2 Mean Ox Delivery Rate 02/26 1331 95 02/26 0613 98.0 86 20 136/72 93 02/25 2327 97.9 78 20 126/66 93 Room Air 02/25 1423 97.8 85 20 130/60 93 Room Air Intake & Output 02/26 1600 02/26 0800 02/26 0000 02/25 1600 02/25 0800 02/25 0000 Intake Total 505.7 931 800 448 860.9 Output Total 10 4 2 300 450 Balance 495.7 927 798 148 410.9 Intake, IV 385.7 451 328 120.9 Intake, Oral 120 480 800 120 740 Number 3 2 2 2 1 Bowel Movements Output, 10 Emesis Output, Stool 4 2 Output, Urine 300 450 Patient 164 lb 162 lb 162 lb 225 lb Weight Weight Bed scale Bed scale Bed scale Measurement Method Physical Exam: gen; obvious distress. tachypneic . alert heent; anicteric, dry mm. no jvd. abd; mild distension and LLQ tenderness. exam limited by tachypnea/bipap. ext; bilateral edema. Current Medications: Current Medications Sig/Jacobo Start time Last Medication Dose Route Stop Time Status Admin Acetaminophen 1,000 MG Q12P PRN 02/24 0845 AC N/A 1 UNIT IV Acetaminophen 650 MG Q8 02/22 2200 AC 02/26 PO 0703 Ampicillin Sodium/ 3,000 MG Q6 02/26 1200 AC Sulbactam Sodium IV Sodium Chloride 100 ML Ceftriaxone Sodium 1,000 MG DAILY 02/23 1000 DC 02/26 IV 0900 Heparin Sodium 10,000 UNIT .STK-MED ONE 02/250 DC (Porcine) IV 02/25 230 Heparin Sodium 5,100 UNIT BOLUS ONE 02/25 2200 DC 02/25 (Porcine) IV 02/25 220 2303 Heparin Sodium 25,000 UNIT Q24H 02/22 221 DC 02/25 (Porcine) IV 2145 Sodium Chloride 500 ML Lorazepam 0.5 MG ONCE ONE 02/26 1300 DC IV 02/26 1301 Metronidazole 500 MG IQ8 02/24 0800 DC 02/26 N/A 1 UNIT IV 0801 Ondansetron HCl 4 MG ONCE ONE 02/26 0145 DC 02/26 PO 02/26 0146 0210 Sodium Chloride 1,000 ML BOLUS ONE 02/26 1330 AC 02/26 IV 02/26 1429 1358 Trimethobenzamide HCl 200 MG ONCE ONE 02/26 0430 DC 02/26 IM 02/26 0431 0441 Results Last 48 Hours of Labs: Laboratory Tests 02/26 02/26 02/26 1305 1242 1242 Blood Gas pH (7.35 - 7.45 PH) 7.28 *L pCO2 (35 - 45 TORR) 11 L pO2 (80 - 100 TORR) 349 H HCO3 (21 - 28 MEQ/L) 5 L ABG O2 Sat (Measured) (>96.0 %) 99.0 P-50 (Temp Corrected) N Carboxyhemoglobin (1.5 - 5.0 %) 0.2 L O2 Concentration % 100% Respiration Rate (BPM) 24 O2 Delivery Method BIPAP Vent Mode ST Expiratory Pressure (CM H2O P) 6 Inspiratory Pressure (CM H2O P) 14 Chemistry Sodium (137 - 145 mmol/L) 139 Potassium (3.5 - 5.1 mmol/L) 4.5 Chloride (98 - 107 mmol/L) 105 Carbon Dioxide (22 - 30 mmol/L) 9 *L Anion Gap (5 - 16) 25 H BUN (7 - 17 mg/dL) 41 H Creatinine (0.5 - 1.0 mg/dL) 1.3 H Estimated GFR (>60 ml/min) 40 L BUN/Creatinine Ratio (7 - 25 %) 31.5 H Lactic Acid (0.7 - 2.1 mmol/L) 11.6 H Troponin I (< 0.11 ng/ml) < 0.01 Hematology CBC w Diff NO MAN DIFF REQ WBC (4.8 - 10.8 /CUMM) 24.0 H RBC (4.20 - 5.40 /CUMM) 4.05 L Hgb (12.0 - 16.0 G/DL) 10.1 L Hct (37 - 47 %) 33.3 L MCV (81.0 - 99.0 FL) 82.4 MCH (27.0 - 31.0 PG) 24.9 L RDW (11.5 - 14.5 %) 17.8 H Plt Count (130 - 400 /CUMM) 452 H MPV (7.4 - 10.4 FL) 8.4 Gran % (42.2 - 75.2 %) 95.1 H Lymphocytes % (20.5 - 51.1 %) 2.6 L Monocytes % (1.7 - 9.3 %) 2.2 Eosinophils % (0 - 5 %) 0 Basophils % (0.0 - 2.0 %) 0.1 Absolute Granulocytes (1.4 - 6.5 /CUMM) 22.8 H Absolute Lymphocytes (1.2 - 3.4 /CUMM) 0.6 L Absolute Monocytes (0.10 - 0.60 /CUMM) 0.5 Absolute Eosinophils (0.0 - 0.7 /CUMM) 0 Absolute Basophils (0.0 - 0.2 /CUMM) 0 PUBS MCHC (33.0 - 37.0 G/DL) 30.2 L Miscellaneous Phlebotomy Draw Site LEFT RADIAL 02/26 02/26 02/25 02/25 1128 0423 1900 0906 Chemistry Sodium (137 - 145 mmol/L) 137 Potassium (3.5 - 5.1 mmol/L) 4.1 Chloride (98 - 107 mmol/L) 105 Carbon Dioxide (22 - 30 mmol/L) 19 L Anion Gap (5 - 16) 13 BUN (7 - 17 mg/dL) 38 H Creatinine (0.5 - 1.0 mg/dL) 0.9 Estimated GFR (>60 ml/min) > 60 BUN/Creatinine Ratio (7 - 25 %) 42.2 H Coagulation APTT (25 - 37 SEC) 93 H 108 *H 31 49 H Hematology CBC w Diff MAN DIFF ORDERED WBC (4.8 - 10.8 /CUMM) 38.0 *H RBC (4.20 - 5.40 /CUMM) 3.57 L Hgb (12.0 - 16.0 G/DL) 9.2 L Hct (37 - 47 %) 28.8 L MCV (81.0 - 99.0 FL) 80.7 L MCH (27.0 - 31.0 PG) 25.7 L RDW (11.5 - 14.5 %) 17.8 H Plt Count (130 - 400 /CUMM) 431 H MPV (7.4 - 10.4 FL) 8.0 Gran % (42.2 - 75.2 %) 96.7 H Lymphocytes % (20.5 - 51.1 %) 1.7 L Monocytes % (1.7 - 9.3 %) 1.6 L Eosinophils % (0 - 5 %) 0 Basophils % (0.0 - 2.0 %) 0 Absolute Granulocytes (1.4 - 6.5 /CUMM) 36.7 H Segmented Neutrophils (42.2 - 75.2 %) 88 H Band Neutrophils (0.0 - 5.0 %) 8 H Absolute Lymphocytes (1.2 - 3.4 /CUMM) 0.7 L Lymphocytes (20.5 - 51.1 %) 4 L Absolute Monocytes (0.10 - 0.60 /CUMM) 0.6 Absolute Eosinophils (0.0 - 0.7 /CUMM) 0 Absolute Basophils (0.0 - 0.2 /CUMM) 0 Platelet Estimate (ADEQUATE) INCREASED Hypochromic-Microcytic 1+ Poikilocytosis FEW Anisocytosis 1+ PUBS MCHC (33.0 - 37.0 G/DL) 31.8 L Other Body Source Fld Total RBCs Counted (%) 100 02/25 02/25 02/25 0730 0600 0320 Chemistry Sodium (137 - 145 mmol/L) 137 Potassium (3.5 - 5.1 mmol/L) 4.2 Chloride (98 - 107 mmol/L) 106 Carbon Dioxide (22 - 30 mmol/L) 20 L Anion Gap (5 - 16) 12 BUN (7 - 17 mg/dL) 33 H Creatinine (0.5 - 1.0 mg/dL) 1.0 Estimated GFR (>60 ml/min) 55 L BUN/Creatinine Ratio (7 - 25 %) 33.0 H Coagulation PT (9.4 - 12.5 SEC) 20.2 H INR (0.90 - 1.19) 1.94 H APTT (25 - 37 SEC) Cancelled 108 *H Hematology CBC w Diff MAN DIFF ORDERED WBC (4.8 - 10.8 /CUMM) 30.8 *H RBC (4.20 - 5.40 /CUMM) 3.47 L Hgb (12.0 - 16.0 G/DL) 9.0 L Hct (37 - 47 %) 28.0 L MCV (81.0 - 99.0 FL) 80.6 L MCH (27.0 - 31.0 PG) 25.8 L RDW (11.5 - 14.5 %) 17.5 H Plt Count (130 - 400 /CUMM) 406 H MPV (7.4 - 10.4 FL) 7.9 Gran % (42.2 - 75.2 %) 96.1 H Lymphocytes % (20.5 - 51.1 %) 2.4 L Monocytes % (1.7 - 9.3 %) 1.5 L Eosinophils % (0 - 5 %) 0 Basophils % (0.0 - 2.0 %) 0 Absolute Granulocytes (1.4 - 6.5 /CUMM) 29.6 H Segmented Neutrophils (42.2 - 75.2 %) 79 H Band Neutrophils (0.0 - 5.0 %) 18 H Absolute Lymphocytes (1.2 - 3.4 /CUMM) 0.7 L Lymphocytes (20.5 - 51.1 %) 2 L Monocytes (1.7 - 9.3 %) 1 L Absolute Monocytes (0.10 - 0.60 /CUMM) 0.5 Absolute Eosinophils (0.0 - 0.7 /CUMM) 0 Absolute Basophils (0.0 - 0.2 /CUMM) 0 Platelet Estimate (ADEQUATE) ADEQUATE Hypochromic-Microcytic 2+ Anisocytosis 1+ PUBS MCHC (33.0 - 37.0 G/DL) 32.0 L 02/24 02/24 2215 1441 Coagulation APTT (25 - 37 SEC) 44 H 107 *H Recent Imaging Studies: CXR perfomed showing distended stomach and likely free intraperitoneal air below diaphragm. Assessment/Plan Assessment/Plan Patient has clearly deteriorated and appears to have colonic perforation by free air on xray. 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 She will clearly require surgical exploration/resection/colostomy. Patient is currently DNR/DNI. I had discussion with patient and brother (phone) independently. Bot are in agreement to proceed with surgery. They understand that she will require mechanical ventilation for at minimum 24 hours for this to occur. They agree. In preparation for surgery, she will need nasogastric decompression. He stomach is massively dilated on xray and she is at great risk for aspiration pneumonitis gerardo-anesthesia induction. ICU team to place central venous catheter.
--- NOTE | 2017-02-26 15:26 | PN- Att Addend ---
Attending Addendum Attending Brief Note Events from earlier this morning noted patient had to be transferred to the intensive care unit she was a little tachycardic, arterial blood gases results noted area patient was seen immediately by Dr. Reynaldo spring and was inserted, some stools were mixed with the urine, patient probably has a fistula may also have another perforation. Patient will get a central line and stabilized she can go for surgery later on today the patient understands Intake & Output 02/26 1600 02/26 0400 02/25 1600 02/25 0400 02/24 1600 02/24 0400 Intake Total 2505.7 931 1248 860.9 1271.3 Output Total 640 4 302 450 600 200 Balance 1865.7 927 946 410.9 671.3 -200 Intake, IV 2385.7 451 328 120.9 671.3 Intake, Oral 120 480 920 740 600 Number 4 2 4 1 3 1 Bowel Movements Output, 10 Emesis Output, 600 Gastric Drainage Output, Stool 10 4 2 Output, Urine 20 300 450 600 200 Patient 164 lb 162 lb 162 lb Weight Weight Bed scale Bed scale Measurement Method Current Medications Sig/Jacobo Start time Last Medication Dose Route Stop Time Status Admin Acetaminophen 1,000 MG Q12P PRN 02/24 0845 AC N/A 1 UNIT IV Acetaminophen 650 MG Q8 02/22 2200 AC 02/26 PO 0703 Ampicillin Sodium/ 3,000 MG Q6 02/26 1200 AC Sulbactam Sodium IV Sodium Chloride 100 ML Ceftriaxone Sodium 1,000 MG DAILY 02/23 1000 DC 02/26 IV 0900 Heparin Sodium 10,000 UNIT .STK-MED ONE 02/25 2300 DC (Porcine) IV 02/25 2301 Heparin Sodium 5,100 UNIT BOLUS ONE 02/25 2200 DC 02/25 (Porcine) IV 02/25 220 2303 Heparin Sodium 25,000 UNIT Q24H 02/22 2215 DC 02/25 (Porcine) IV 2145 Sodium Chloride 500 ML Lorazepam 0.5 MG ONCE ONE 02/26 1300 DC IV 02/26 1301 Metronidazole 500 MG IQ8 02/24 0800 DC 02/26 N/A 1 UNIT IV 0801 Ondansetron HCl 4 MG ONCE ONE 02/26 0145 DC 02/26 PO 02/26 0146 0210 Sodium Chloride 1,000 ML BOLUS ONE 02/26 1500 AC 02/26 IV 02/26 1559 1456 Sodium Chloride 1,000 ML BOLUS ONE 02/26 1330 DC 02/26 IV 02/26 1429 1358 Trimethobenzamide HCl 200 MG ONCE ONE 02/26 0430 DC 02/26 IM 02/26 0431 0441 Laboratory Tests 02/26/17 1305: pH 7.28 *L, pCO2 11 L, pO2 349 H, HCO3 5 L, ABG O2 Sat (Measured) 99.0, P-50 (Temp Corrected) N, Carboxyhemoglobin 0.2 L, O2 Concentration % 100%, Respiration Rate 24, O2 Delivery Method BIPAP, Vent Mode ST, Expiratory Pressure 6, Inspiratory Pressure 14, Phlebotomy Draw Site LEFT RADIAL 02/26/17 1242: Lactic Acid 11.6 H 02/26/17 1242: Anion Gap 25 H, Estimated GFR 40 L, BUN/Creatinine Ratio 31.5 H, Troponin I < 0.01, CBC w Diff NO MAN DIFF REQ, RBC 4.05 L, MCV 82.4, MCH 24.9 L, RDW 17.8 H, MPV 8.4, Gran % 95.1 H, Lymphocytes % 2.6 L, Monocytes % 2.2, Eosinophils % 0, Basophils % 0.1, Absolute Granulocytes 22.8 H, Absolute Lymphocytes 0.6 L, Absolute Monocytes 0.5, Absolute Eosinophils 0, Absolute Basophils 0, PUBS MCHC 30.2 L 02/26/17 1128: APTT 93 H 02/26/17 0423: Anion Gap 13, Estimated GFR > 60, BUN/Creatinine Ratio 42.2 H, APTT 108 *H, CBC w Diff MAN DIFF ORDERED, RBC 3.57 L, MCV 80.7 L, MCH 25.7 L, RDW 17.8 H, MPV 8.0, Gran % 96.7 H, Lymphocytes % 1.7 L, Monocytes % 1.6 L, Eosinophils % 0, Basophils % 0, Absolute Granulocytes 36.7 H, Segmented Neutrophils 88 H, Band Neutrophils 8 H, Absolute Lymphocytes 0.7 L, Lymphocytes 4 L, Absolute Monocytes 0.6, Absolute Eosinophils 0, Absolute Basophils 0, Platelet Estimate INCREASED, Hypochromic-Microcytic 1+, Poikilocytosis FEW, Anisocytosis 1+, PUBS MCHC 31.8 L, Fld Total RBCs Counted 100 02/25/17 1900: APTT 31 02/25/17 0906: APTT 49 H 02/25/17 0730: Anion Gap 12, Estimated GFR 55 L, BUN/Creatinine Ratio 33.0 H, CBC w Diff MAN DIFF ORDERED, RBC 3.47 L, MCV 80.6 L, MCH 25.8 L, RDW 17.5 H, MPV 7.9, Gran % 96.1 H, Lymphocytes % 2.4 L, Monocytes % 1.5 L, Eosinophils % 0, Basophils % 0, Absolute Granulocytes 29.6 H, Segmented Neutrophils 79 H, Band Neutrophils 18 H, Absolute Lymphocytes 0.7 L, Lymphocytes 2 L, Monocytes 1 L , Absolute Monocytes 0.5, Absolute Eosinophils 0, Absolute Basophils 0, Platelet Estimate ADEQUATE, Hypochromic-Microcytic 2+, Anisocytosis 1+, PUBS MCHC 32.0 L 02/25/17 0600: APTT Cancelled 02/25/17 0320: PT 20.2 H, INR 1.94 H, APTT 108 *H 02/24/17 2215: APTT 44 H 02/24/17 1441: APTT 107 *H 02/24/17 0739: Anion Gap 10, Estimated GFR > 60, BUN/Creatinine Ratio 26.7 H, APTT 42 H, CBC w Diff MAN DIFF ORDERED, RBC 3.57 L, MCV 80.5 L, MCH 26.1 L, RDW 17.1 H, MPV 8.0, Gran % 97.5 H, Lymphocytes % 1.7 L, Monocytes % 0.8 L, Eosinophils % 0, Basophils % 0, Absolute Granulocytes 19.5 H, Segmented Neutrophils 72, Band Neutrophils 25 H, Absolute Lymphocytes 0.3 L, Lymphocytes 2 L, Monocytes 1 L , Absolute Monocytes 0.2, Absolute Eosinophils 0, Absolute Basophils 0, Platelet Estimate VERIFIED BY SMEAR, Normocytic RBCs VERIFIED, Normochromic RBCs VERIFIED , PUBS MCHC 32.4 L 02/24/17 0030: APTT 43 H, CBC w Diff MAN DIFF ORDERED, RBC 3.39 L, MCV 80.4 L, MCH 25.8 L, RDW 16.9 H, MPV 7.7, Gran % 93.9 H, Lymphocytes % 3.7 L, Monocytes % 2.4, Eosinophils % 0, Basophils % 0, Absolute Granulocytes 21.0 H, Segmented Neutrophils 94 H, Band Neutrophils 2, Absolute Lymphocytes 0.8 L, Lymphocytes 1 L, Monocytes 3, Absolute Monocytes 0.5, Absolute Eosinophils 0, Absolute Basophils 0, Platelet Estimate INCREASED, Polychromasia 1+, Hypochromic- Microcytic 1+, Poikilocytosis 1+, Ovalocytes 1+, PUBS MCHC 32.1 L, Fld Total RBCs Counted 100 02/23/17 1845: CBC w Diff MAN DIFF ORDERED, RBC 3.31 L, MCV 80.9 L, MCH 26.0 L, RDW 17.5 H, MPV 7.6, Gran % 95.1 H, Lymphocytes % 2.6 L, Monocytes % 2.3, Eosinophils % 0, Basophils % 0, Absolute Granulocytes 21.6 H, Segmented Neutrophils 82 H, Band Neutrophils 14 H, Absolute Lymphocytes 0.6 L, Lymphocytes 3 L, Absolute Monocytes 0.5, Eosinophils 1, Absolute Eosinophils 0, Absolute Basophils 0, Platelet Estimate ADEQUATE, Poikilocytosis FEW, Anisocytosis 1+, Macrocytic Cells FEW, Ovalocytes FEW, PUBS MCHC 32.1 L 02/23/17 1612: APTT 33 Microbiology 02/26 1400 URINE ROUT: Urine Culture - RECD 02/26 133 UPPER RESP: Surveillance Culture - RECD 02/26 1330 GI: Surveillance Culture - RECD Microbiology 02/26 1400 URINE ROUT: Urine Culture - RECD 02/26 1329 UPPER RESP: Surveillance Culture - RECD 02/26 1329 GI: Surveillance Culture - RECD Vital Signs Date Time Temp Pulse Resp B/P B/P Pulse O2 O2 Flow FiO2 Mean Ox Delivery Rate 02/26 1450 99 Room Air 02/26 1331 95 02/26 1155 98.9 122 34 128/72 97 Nasal 2.0L Cannula 02/26 1130 24 93 Room Air Room Air 02/26 0800 93 Room Air Room Air 02/26 0613 98.0 86 20 136/72 93 02/25 2327 97.9 78 20 126/66 93 Room Air
[2017-02-26 16:00] VITALS: BP 93/70
--- NOTE | 2017-02-26 17:07 | Proc Note Internal Medicine ---
Medicine Procedure Procedure Date: 02/26/17 Medical Procedure(s): central venous cath place Pre-Operative Diagnosis: 1. Sepsis 2. Perforated colon and peritonitis Post-Operative Diagnosis: 1. Sepsis 2. Perforated colon and peritonitis Estimated Blood Loss: less than 50ml Anesthesia: Local anesthesia Procedure Findings: Informed consent was obtained from the patient after discussing the risks and benefits of the procedure. First, a timeout was obtained, patient identifying data was checked and verified by members of the team and by myself; after the proper patient and procedure and procedural site was identified, we proceeded. The surgical area was cleaned with chlorhexidine scrub. Patient was draped in sterile fashion. Using ultrasound probe, the right internal jugular vein was isolated. 5 mL of local 1% lidocaine was used to numb the skin. Sidelinger technique used. Using a syringe the right Internal Jugular Vein was punctured under ultrasound guidance. Over the syringe, guidewire was placed as the syringe was removed. Skin dilator was placed over the guidewire. The dilator was then removed. The central venous catheter was inserted over the wire. All ports were flushed and aspirated and were free flowing/functional. The catheter was secured with silk sutures and tagaderm was placed. Blood loss was scant, and the patient handled the procedure well. A STAT chest x-ray obtained showed no lung injury and confirmed the right IJ catheter terminating near the cavoatrial junction or within the right atrium.
--- NOTE | 2017-02-26 17:25 | RADIOLOGY REPORT ---
EXAMINATION: XR PORTABLE CHEST CLINICAL INFORMATION: Concern for pneumonia. COMPARISON: Chest radiograph dated earlier on 02/26/2017. TECHNIQUE: Portable frontal view of the chest was obtained. FINDINGS: Mild bibasilar airspace opacity new from prior examination may represent atelectasis or early infiltrate. No pleural effusion. The costophrenic angles are sharp. Cardiomediastinal silhouette and pulmonary vasculature are within normal limits. Right-sided IJ central venous catheter terminates near the cavoatrial junction or within the right atrium. Enteric tube terminates below the diaphragm, below the level of the film. No acute osseous findings. Previously reported subdiaphragmatic free air is less conspicuous on this examination. IMPRESSION: Mild bibasilar airspace opacities may represent atelectasis or early infiltrate.
--- NOTE | 2017-02-26 20:08 | Operative Report ---
Operative/Inv Procedure Report Surgery Date: 02/26/17 Name of Procedure: 1. Sigmoid colectomy with end colostomy and takedown of colovesical fistula 2. Takedown splenic flexure 3. Left oophorectomy 4. Skin biopsy abdomen Pre-Operative Diagnosis: Perforated diverticulitis with colovesical fistula Post-Operative Diagnosis: Same Estimated Blood Loss: 50ml to 100ml Surgeon/Herb Digger: Jacob Jacobs M.D./Brodie HA Anesthesia: general endotracheal tube Drains: 19 Sami Eric-Antonio Specimens: Sigmoid colon Left ovary Abdominal wall nevus Microbiology: Peritoneal fluid Operative/Procedure Note Note: After consent patient brought to the operative laid supine. Gen. anesthesia was obtained and her abdomen was prepped and draped. There were atypical nevi in the midline over the proposed incision site. These were excised with a shave biopsy passed off the field. Midline incision was then made sharply. Subcutaneous tissues dissected with cautery. We incised the fascia with cautery and entered the peritoneum sharply. There was purulence, diffuse. There is feces visible in the pelvis and left lower quadrant. Solid stool was evacuated from the pelvis and massive hole in the sigmoid colon. A specimen of peritoneal fluid was sent for culture. We placed a Bookwalter retraction system. All purulence was attempted to be irrigated to help visualize. There are multiple loculated interloop abscesses which were freed up. The small bowel was then packed up to the right upper quadrant with the Bookwalter retraction system. The pelvis was explored. Left colon/sigmoid was mobilized along the white line of Toldt. Dissection was quite difficult due to the severe inflammatory reaction and obliteration of the avascular planes. Eventually found a nice plane and carried south. We entered what appeared to be the colon but it was in fact a fistulous communication with the colon to the left side of the bladder. The left ovary was freed up from the colon. It was quite inflamed from the process. We chose a line of transection above the perforation site and created a window in the mesentery with cautery. The bowels divided with CHELSIE stapler. The mesentery was divided with the LigaSure device. There were 2 areas of oozing from the transection site which were suture ligated. We divided the distal sigmoid colon with the TA stapler and passed the sigmoid colon off the field. The pelvis was irrigated with saline. There was profuse hemorrhage from the left ovary. I elected to resect it. This was performed with the LigaSure device without incident. The left ovary was passed off the field. In order to bring the left colon up to perform a stoma we had to mobilize the colon further and take down the splenic flexure. This was achieved with blunt dissection, cautery and LigaSure. Eventually we could bring it up and we had at this point plane mobilization for the stoma. The entire peritoneal cavity was then suction irrigated normal saline. There was oozing in the pelvis which was controlled with Jourdan. Then placed a 19 Sami Eric-Antonio drain through the right lower abdomen and put the drains abutting the open area where the colovesical fistula was located. A site for the stoma was then chosen left mid abdomen. Ellipse of skin was taken with cautery and the subcutaneous tissues tissues dissected with cautery. Fascial layers were divided sequentially in a cruciate fashion while splitting the rectus abdominis muscle. The bowel was then brought up through the wound. The midline fascia was closed with a running 0 Maxon suture. Skin closed loosely with mt. The stoma was then matured in a [place] fashion with interrupted 3-0 Vicryl sutures. Sterile dressings and stomal appliances were applied. Patient was critically L throughout the operation with hypotension requiring aggressive fluid resuscitation, bicarbonate infusion and Neno-Synephrine drip. She was brought back to the intensive care unit critically ill Findings: Diffuse peritonitis with feculent peritonitis in the pelvis and colovesical fistula Discharge Disposition: Critical Care Unit
--- NOTE | 2017-02-26 22:08 | Event Note ---
Event Note Event Note: Patient was on IV heparin after the surgery, currently held because of risk of significant bleeding, reevaluate in am if needs to be restarted.
[2017-02-26 22:23] LABS: ABSOLUTE BASOPHIL COUNT 0 /CUMM (0.0-0.2); ABSOLUTE EOSINOPHIL COUNT 0 /CUMM (0.0-0.7); ABSOLUTE GRANULOCYTE CT 34.8 /CUMM (1.4-6.5); ABSOLUTE LYMPH COUNT 0.7 /CUMM (1.2-3.4); ABSOLUTE MONOCYTE COUNT 0.1 /CUMM (0.10-0.60); BASOPHIL % 0 % (0.0-2.0); EOSINOPHIL % 0 % (0-5); GRANULOCYTE % 97.5 % (42.2-75.2); MEAN CORPUSCULAR HGB 25.2 PG (27.0-31.0); MEAN CORPUSCULAR HGB CONC 30.6 G/DL (33.0-37.0); MEAN CORPUSCULAR VOLUME 82.3 FL (81.0-99.0); MEAN PLATELET VOLUME 8.5 FL (7.4-10.4); PLATELET COUNT 348 /CUMM (130-400); RBC DISTRIBUTION WIDTH 18.1 % (11.5-14.5)
[2017-02-26 22:30] LABS: HEMATOCRIT 21.4 % (37-47); WHITE BLOOD CELL COUNT 35.7 /CUMM (4.8-10.8)
[2017-02-26 22:37] LABS: PTT 52 SEC (25-37)
--- NOTE | 2017-02-26 22:38 | RADIOLOGY REPORT ---
EXAMINATION: XR PORTABLE CHEST CLINICAL INFORMATION: Intubated COMPARISON: Prior chest x-rays, the most recent on 02/26/2017 at 4:39 PM TECHNIQUE: Portable AP view of the chest was obtained. FINDINGS: The cardiomediastinal silhouette is normal. There is an enteric tube in place, coursing toward the abdomen. There is an endotracheal tube in place with its tip located about 4.7 cm from the isha. It is advised to advance the endotracheal tube for about 1-2 cm. There are pulmonary opacities in the bilateral lower lobes. Left-sided pleural effusion causes blunting of the left costophrenic angle. No pneumothorax. IMPRESSION: The tip of endotracheal tube is located about 4.7 cm from the isha. It is advised to advance the endotracheal tube for about 1-2 cm. Bilateral pulmonary opacities and left pleural effusion, fairly similar to the most recent comparison exam.
[2017-02-27] VITALS: BP 149/73
--- NOTE | 2017-02-27 00:59 | PN- General Surgery ---
Subjective Subjective: poc s/p tao's for sigmoid colon perf injtubated awake, responds to questions 3 pressors, bicarb gtt has received 1 unit prbc's for post op anemia Objective Vital Signs and I&Os Vital Signs Date Time Temp Pulse Resp B/P B/P Pulse O2 O2 Flow FiO2 Mean Ox Delivery Rate 02/26 2342 96 133/68 02/26 2206 50 02/26 2156 153 104/69 02/26 2043 144 66/42 02/26 2029 40 02/26 1600 97.0 112 39 93/70 95 Room Air 02/26 1450 99 Room Air 02/26 1331 95 02/26 1155 98.9 122 34 128/72 97 Nasal 2.0L Cannula 02/26 1130 24 93 Room Air Room Air 02/26 0800 93 Room Air Room Air 02/26 0613 98.0 86 20 136/72 93 Intake & Output 02/27 0800 02/27 0000 02/26 1600 02/26 0800 02/26 0000 02/25 1600 Intake Total 1999 505.7 931 800 Output Total 630 10 4 2 Balance 1370 495.7 927 798 Intake, IV 1999 385.7 451 Intake, Oral 0 120 480 800 Number 1 3 2 2 Bowel Movements Output, 10 Emesis Output, 600 Gastric Drainage Output, Stool 10 4 2 Output, Urine 20 Patient 164 lb 162 lb 162 lb Weight Weight Bed scale Bed scale Measurement Method Physical Exam: cv: tachycardic, receiving digoxin lungs: scattered coarse rhales abd: drsy dry abdomen softly distended stoma dusky stool and gas in ostomy ext: cool but moving without difficulty weak pulses distally iglesias: feculent urine Assessment/Plan Assessment/Plan critical s/p hartmans procedure for perf sigmoid colon plan will follow closely with critcal care team monitor drain outputs serial abdominal exams
[2017-02-27 05:26] LABS: ABSOLUTE BASOPHIL COUNT 0 /CUMM (0.0-0.2); ABSOLUTE EOSINOPHIL COUNT 0.2 /CUMM (0.0-0.7); ABSOLUTE GRANULOCYTE CT 25.7 /CUMM (1.4-6.5); ABSOLUTE LYMPH COUNT 0.9 /CUMM (1.2-3.4); ABSOLUTE MONOCYTE COUNT 0.6 /CUMM (0.10-0.60); BASOPHIL % 0 % (0.0-2.0); EOSINOPHIL % 0.6 % (0-5); GRANULOCYTE % 93.9 % (42.2-75.2); HEMATOCRIT 24.8 % (37-47); MEAN CORPUSCULAR HGB 26.7 PG (27.0-31.0); MEAN CORPUSCULAR HGB CONC 32.2 G/DL (33.0-37.0); MEAN CORPUSCULAR VOLUME 83.1 FL (81.0-99.0); MEAN PLATELET VOLUME 8.9 FL (7.4-10.4); PLATELET COUNT 315 /CUMM (130-400); RBC DISTRIBUTION WIDTH 18.4 % (11.5-14.5); RED BLOOD CELL CT 2.98 /CUMM (4.20-5.40); WHITE BLOOD CELL COUNT 27.4 /CUMM (4.8-10.8)
--- NOTE | 2017-02-27 06:42 | Event Note ---
Event Note Event Note: Called brother around 10 pm to inform him that Ms. Murphy was post surgery and was back in ICU but requiring three pressors. Upon discussion of her code status the brother stated that given that she was already intubated and s/p surgery he would like to make her a FULL CODE until she was awake and able to make her own decisions.
--- NOTE | 2017-02-27 07:17 | PN- CRCU ---
Subjective HPI/Critical Care Issues: The patient is awake and alert. She is comfortable and follows commands. She remains on mechanical ventilation. She is currently not in pain. Her FiO2 is at 0.40 and she is saturating well. Overall, she has significantly improved postoperatively. There were no overnight events. Objective Current Medications: Current Medications Sig/Jacobo Start time Last Medication Dose Route Stop Time Status Admin Acetaminophen 1,000 MG Q12P PRN 02/24 0845 N/A 1 UNIT IV Acetaminophen 650 MG Q8 02/22 2200 DC 02/26 PO 0703 Ampicillin Sodium/ 3,000 MG Q6 02/26 1200 AC 02/27 Sulbactam Sodium IV 0530 Sodium Chloride 100 ML Ceftriaxone Sodium 1,000 MG DAILY 02/23 1000 DC 02/26 IV 0900 Dexamethasone 4 MG .STK-MED ONE 02/26 165 DC IM 02/26 1659 Dextrose 25 GM ONCE ONE 02/26 2245 DC 02/26 IV 02/26 2246 2253 Digoxin 0.25 MG ONCE ONE 02/27 0400 DC 02/27 IV 02/27 040 0453 Digoxin 0.25 MG ONCE ONE 02/26 2200 DC 02/26 IV 02/26 220 2156 Digoxin Immune LATESHA 0.25 HANNAH ONCE ONE 02/27 0345 CAN IV 02/27 0346 Digoxin Immune LATESHA 0.25 HANNAH ONCE ONE 02/26 2145 CAN IV 02/26 214 Fentanyl Citrate 250 MCG .STK-MED ONE 02/26 1657 DC IM 02/26 1658 Heparin Sodium 25,000 UNIT Q24H 02/22 2215 DC 02/25 (Porcine) IV 2145 Sodium Chloride 500 ML Hydromorphone HCl 2 MG .STK-MED ONE 02/26 1657 DC IM 02/26 1658 Lorazepam 0.5 MG ONCE ONE 02/26 1300 DC IV 02/26 1301 Metronidazole 500 MG IQ8 02/24 0800 DC 02/26 N/A 1 UNIT IV 0801 Norepinephrine 4 MG Q4H 02/27 0045 AC 02/27 Dextrose/Water 250 ML IV 0506 Norepinephrine 4 MG Q24H 02/26 2045 DC 02/26 Dextrose/Water 250 ML IV 02/27 0044 2043 Norepinephrine 4 MG .STK-MED ONE 02/26 2010 DC IV 02/26 2011 Ondansetron HCl 8 MG .STK-MED ONE 02/26 1658 DC IM 02/26 1659 Pantoprazole Sodium 40 MG DAILY 02/26 203 AC 02/26 IV 2140 Phenylephrine HCl 40 MG Q16H 02/27 1250 AC Dextrose/Water 250 ML IV Phenylephrine HCl 40 MG ONCE ONE 02/27 2044 DC 02/26 Dextrose/Water 250 ML IV 02/26 Phenylephrine HCl 40 MG .STK-MED ONE 02/27 2044 DC IM 02/26 204 Sodium Bicarbonate 50 MEQ ONCE ONE 02/26 2214 DC 02/26 IV 02/26 2215 225 Sodium Bicarbonate 150 MEQ Q5H 02/27 2044 DC 02/27 Dextrose/Water 1,000 ML IV 0440 Sodium Bicarbonate 50 MEQ ONCE ONE 02/26 204 DC 02/26 IV 02/26 204 2139 Sodium Chloride 1,000 ML Q6H 02/27 0615 AC 02/27 IV 0608 Sodium Chloride 1,000 ML BOLUS ONE 02/26 2214 DC 02/26 IV 02/27 0014 2215 Sodium Chloride 500 ML BOLUS ONE 02/26 2214 DC 02/26 IV 02/26 2314 2115 Sodium Chloride 1,000 ML BOLUS ONE 02/26 1600 DC 02/26 IV 02/26 1659 1559 Sodium Chloride 1,000 ML BOLUS ONE 02/26 1500 DC 02/26 IV 02/26 1559 1456 Sodium Chloride 1,000 ML BOLUS ONE 02/26 1330 DC 02/26 IV 02/26 1429 1358 Vasopressin 40 UNITS Q16H 02/27 2044 AC 02/26 Sodium Chloride 100 ML IV 204 Vital Signs & I&O Last 24 Hrs of Vitals and I&O: Vital Signs Date Time Temp Pulse Resp B/P B/P Pulse O2 O2 Flow FiO2 Mean Ox Delivery Rate 02/27 0523 40 02/27 0506 110 134/61 02/27 0453 118 134/74 02/27 0249 50 02/27 0000 97.3 98 25 149/73 100 Ventilator 50% 02/27 0000 100 Ventilator 50% 02/26 2342 96 133/68 02/26 2206 50 02/26 2156 153 104/69 02/26 2043 144 66/42 02/26 2029 40 02/26 2000 100 Ventilator 40% 02/26 1600 97.0 112 39 93/70 95 Room Air 02/26 1450 99 Room Air 02/26 1331 95 02/26 1155 98.9 122 34 128/72 97 Nasal 2.0L Cannula 02/26 1130 24 93 Room Air Room Air 02/26 0800 93 Room Air Room Air Intake & Output 02/27 0800 02/27 0000 02/26 1600 Intake Total 5886 2000 Output Total 500 630 Balance 5386 1370 Intake, IV 5886 2000 Intake, Oral 0 0 Intake, Other 0 Number 1 1 Bowel Movements Output, 400 600 Gastric Drainage Output, Other 50 Output, Stool 0 10 Output, Urine 50 20 Physical Exam General Appearance: well developed/nourished, alert, awake, intubated Head: atraumatic, normal appearance Neck: normal inspection, supple Respiratory: normal breath sounds, chest non-tender, lungs clear Cardiovascular: regular rate/rhythm, normal peripheral pulses Gastrointestinal: soft, no organomegaly, distention, guarding, rebound, tenderness Extremities: normal capillary refill, no edema Neurologic/Psych: awake, alert, oriented x 3 Cranial Nerves: normal hearing, normal speech, PERRL Skin: normal color, warm/dry Results Last 24 Hrs of Lab Results: Laboratory Tests 02/27/17 0620: pH 7.50 H, pCO2 23 L, pO2 94, HCO3 17 L, ABG O2 Sat (Measured) 96.0, Carboxyhemoglobin 1.1 L, O2 Concentration % 40, Respiration Rate 20, O2 Delivery Method VENT, Vent Mode AC, Expiratory Pressure 5, Tidal Volume 500, Phlebotomy Draw Site HELGA 02/27/17 0500: Sodium Cancelled, Potassium Cancelled, Chloride Cancelled, Carbon Dioxide Cancelled, Anion Gap Cancelled, BUN Cancelled, Creatinine Cancelled, Glucose Cancelled, Calcium Cancelled, Phosphorus Cancelled, Magnesium Cancelled, Total Bilirubin Cancelled, AST Cancelled, ALT Cancelled, Albumin Cancelled 02/27/17 0410: Lactic Acid 6.5 H 02/27/17 0410: Anion Gap 15, Estimated GFR 34 L, Glucose 208 H, Calcium 6.5 L, Phosphorus 4.7 H, Magnesium 1.7, Total Bilirubin 1.2, AST 382 H, ALT 172 H, Troponin I 0.05, Albumin 1.5 L, CBC w Diff MAN DIFF ORDERED, RBC 2.98 L, MCV 83.1, MCH 26.7 L, RDW 18.4 H, MPV 8.9, Gran % 93.9 H, Lymphocytes % 3.4 L, Monocytes % 2.1, Eosinophils % 0.6, Basophils % 0, Absolute Granulocytes 25.7 H, Segmented Neutrophils 86 H, Band Neutrophils 9 H, Absolute Lymphocytes 0.9 L, Lymphocytes 3 L, Monocytes 2, Absolute Monocytes 0.6, Absolute Eosinophils 0.2, Absolute Basophils 0, Platelet Estimate ADEQUATE, Hypochromic-Microcytic 2+, Anisocytosis 1+, Target Cells 1+, Stomatocytes 1+, Blaine Cells 1+, Elliptocytes 1 +, PUBS MCHC 32.2 L 02/27/17 0245: pH 7.44, pCO2 23 L, pO2 122 H, HCO3 15 L, ABG O2 Sat (Measured) 97.0, Carboxyhemoglobin 0.9 L, O2 Concentration % 50, Respiration Rate 26, O2 Delivery Method VENT, Vent Mode AC, Expiratory Pressure 5, Tidal Volume 500, Phlebotomy Draw Site [place] 02/27/17 0045: Lactic Acid 7.7 H 02/26/170: pH 7.39, pCO2 25 L, pO2 139 H, HCO3 15 L, ABG O2 Sat (Measured) 98.0, P-50 ( Temp Corrected) Y, Carboxyhemoglobin 0.8 L, O2 Concentration % 50%, Temperature 97.7, Respiration Rate 26, O2 Delivery Method VENT, Vent Mode CMV, Expiratory Pressure 5, Tidal Volume 500, Phlebotomy Draw Site [place] 02/26/172134: pH 7.19 *L, pCO2 28 L, pO2 90, HCO3 11 L, ABG O2 Sat (Measured) 92.0 L, P-50 (Temp Corrected) Y, Carboxyhemoglobin 0.3 L, O2 Concentration % 50%, Temperature 97.2, Respiration Rate 20, O2 Delivery Method VENT, Vent Mode CMV, Expiratory Pressure 5, Tidal Volume 500, Phlebotomy Draw Site [place] 02/26/172124: Lactic Acid 10.3 H 02/26/172124: Anion Gap 19 H, Estimated GFR 34 L, Glucose 47 *L, Calcium 7.1 L, Phosphorus 6.3 H, Magnesium 2.0, Total Bilirubin 0.7, AST 343 H, ALT 138 H, Troponin I 0.04, Albumin 1.6 L, APTT 52 H, CBC w Diff MAN DIFF ORDERED, RBC 2.60 L, MCV 82.3, MCH 25.2 L, RDW 18.1 H, MPV 8.5, Gran % 97.5 H, Lymphocytes % 2.1 L, Monocytes % 0.4 L, Eosinophils % 0, Basophils % 0, Absolute Granulocytes 34.8 H, Segmented Neutrophils 71, Band Neutrophils 23 H, Absolute Lymphocytes 0.7 L , Lymphocytes 3 L, Monocytes 1 L, Absolute Monocytes 0.1, Absolute Eosinophils 0, Absolute Basophils 0, Metamyelocytes 2 H, Platelet Estimate ADEQUATE, Polychromasia 2+, Hypochromic-Microcytic 3+, Anisocytosis 1+, PUBS MCHC 30.6 L 02/26/17 1905: pH 7.07 *L, pCO2 42, pO2 355 H, HCO3 12 L, ABG O2 Sat (Measured) 98.0, P-50 ( Temp Corrected) Y, Carboxyhemoglobin 1.7, O2 Concentration % 100, Temperature 95.8 L, Respiration Rate 12, O2 Delivery Method VENT, Vent Mode AC, Expiratory Pressure 5, Tidal Volume 400, Phlebotomy Draw Site RIGHT RADIAL 02/26/17 1657: Lactic Acid 9.5 H 02/26/17 1305: pH 7.28 *L, pCO2 11 L, pO2 349 H, HCO3 5 L, ABG O2 Sat (Measured) 99.0, P-50 (Temp Corrected) N, Carboxyhemoglobin 0.2 L, O2 Concentration % 100%, Respiration Rate 24, O2 Delivery Method BIPAP, Vent Mode ST, Expiratory Pressure 6, Inspiratory Pressure 14, Phlebotomy Draw Site LEFT RADIAL 02/26/17 1242: Lactic Acid 11.6 H 02/26/17 1242: Anion Gap 25 H, Estimated GFR 40 L, BUN/Creatinine Ratio 31.5 H, Troponin I < 0.01, CBC w Diff NO MAN DIFF REQ, RBC 4.05 L, MCV 82.4, MCH 24.9 L, RDW 17.8 H, MPV 8.4, Gran % 95.1 H, Lymphocytes % 2.6 L, Monocytes % 2.2, Eosinophils % 0, Basophils % 0.1, Absolute Granulocytes 22.8 H, Absolute Lymphocytes 0.6 L, Absolute Monocytes 0.5, Absolute Eosinophils 0, Absolute Basophils 0, PUBS MCHC 30.2 L 02/26/17 1128: APTT 93 H Diagnostic Data CXR Findings: The tip of endotracheal tube is located about 4.7 cm from the isha. It is advised to advance the endotracheal tube for about 1-2 cm. Bilateral pulmonary opacities and left pleural effusion, fairly similar to the most recent comparison exam. Impression/Plan Impression/Plan Impression/Plan: 1. Septic shock secondary to abdominal perforation with peritonitis. 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 She also had takedown of splenic flexure, left oophorectomy and skin biopsy of the abdomen. 2. Respiratory failure, on mechanical ventilation with evidence of bilateral pulmonary infiltrates suggestive of atelectasis versus aspiration. 3. Severe metabolic acidosis secondary to peritonitis/septic shock. 4. Acute kidney injury, possible ATN due to prolonged hypotension. 5. Severe lactic acidosis, again secondary to septic shock. This is improving with IV fluid rehydration. 6. Transaminitis secondary to septic shock. 7. Anemia, status post transfusion. 8. Urine culture positive for Escherichia coli, pansensitive. Recommendations: * Advance endotracheal tube 1-2 cm. * Attempt to wean pressors down to off if able. * Keep mean arterial pressure greater than 60 mmHg. * Continue IV fluid resuscitation. A 500 bolus of normal saline will be given at present. * Please request a nephrology consult for recommendations on fluid resuscitation. * Monitor CVP. * Continue to follow up culture data. * Continue IV Unasyn pending culture results. * Continue with pain control. * Ventilator bundle/DVT and GI prophylaxis at all times. * Continue all supportive care. * The patient is critically ill and needs close follow-up. I asked the housestaff to contact me should the patient's condition change or deteriorate.
--- NOTE | 2017-02-27 07:52 | PN- Resident CRCU ---
Subjective HPI/CRCU Issues: The patient is 71-year-old woman with past medical history of arthritis, chronic bilateral lower extremity edema presented to [place] ED on 02/22 with complaints of burning during urination and increased frequency and urgency, along with extreme weakness anorexia, and a 10 pound weight loss. At presentation in the ER she was found to have leukocytosis with WBC of 22.9, creatinine of 1.2 baseline 1.0, BNP 2730, and lactic acid 2.6. Her urinalysis was turbid and positive for nitrates and large leukoesterase with packed with WBCs and bacteria. She received 2L of IV normal saline and was started on IV Rocephin, flagyl and IV Tylenol. However she developed worsening abdominal pain and diarrhea since admission with C-diff negative. She had blood cultures growing E-coli and Clostridium species and her antibiotics were changed to IV unasyn after review by Infectious disease cancer program consultant. A CT scan on 02/24/17 showed colonic thickening without free intraabdominal air. She was also found to have a right leg DVT was started on IV heparin drip. An echocardiogram done showed normal EF with no sign of RV strain. However, this morning she developed worsening tachypnea and respiratory distress with hypotension necessitating ICU transfer. However there was concern for colitis intraabdominal malignancy or perforation. Her blood pressure on arrival to the ICU was 70/ doppler but improved to 96/60 mmhg with 2 L bolus of normal saline. Her O2 saturation was 93% on room air and it was felt that her respiratory distress was due to tachypnea from acidosis and sepsis. Her ABG showed metabolic acidosis with PH of 7.28. A chest X-ray showed free air under the diaphragm and she is being evaluated by General surgery for emergent colonic surgery. Of note, she was seen in the [facility] ER 2 months prior to this admission with right-sided abdominal pain and bright red blood in the toilet. At that time, she was found to be afebrile with a white blood count of 14,000, UA with packed WBCs and a CT of the abdomen and pelvis revealing abnormal wall thickening of the distal left and proximal sigmoid colon, discharged on Ciprofloxacin for a presumed urinary tract infection, with no urine culture sent. 24 Hour Events: MAXIMUM TEMPERATURE 97.9 Mcguffey heart rate ranged in between 106-144 Normal sinus rhythm Heart rate ranged in between 92-130/54-62 She was restarted on levophed and vasopressin during the day, and NE was decreased as the BP tolerated. Remained intubated. Objective Vital Signs & I&O Last 8 Hrs of Vitals and I&O: Intake & Output 02/27 0800 Intake Total 2255 Output Total 276 Balance 1979 Intake, Blood 350 Product Intake, IV 1905 Number 1 Bowel Movements Output, 200 Drainage Output, Stool 1 Output, Urine 75 Exam General Appearance: no apparent distress, awake, intubated, obese Head: atraumatic, normal appearance Ears, Nose, Throat: normal pharynx, normal ENT inspection, hearing grossly normal Neck: normal inspection, supple, limited range of motion Respiratory: normal breath sounds, rhonchi Cardiovascular: regular rate/rhythm, edema Gastrointestinal: normal bowel sounds, soft, non-tender Extremities: normal inspection, normal capillary refill, normal range of motion, no edema Cranial Nerves: normal hearing, normal speech, PERRL Skin: normal color, warm/dry, colostomy bag in place Skin Temp/Moisture Exam: Warm/Dry Sepsis Skin Exam (color): Normal for Ethnicity Back: could not be examined Sepsis Peripheral Pulse Location: Dorsalis Pedis Sepsis Peripheral Pulse Exam: Weak Sepsis Cap Refill Exam: <2 Sec Other Physical Findings: MARYELLEN drain in place. Current Medications: Current Medications Sig/Jacobo Start time Last Medication Dose Route Stop Time Status Admin Acetaminophen 1,000 MG Q12P PRN 02/24 0845 02/28 N/A 1 UNIT IV 1955 Albumin Human 12.5 GM Q6 02/27 1806 AC 02/28 IV 1755 Ampicillin Sodium/ 3,000 MG Q6 02/26 1200 AC 02/28 Sulbactam Sodium IV 1824 Sodium Chloride 100 ML Fluconazole 400 MG Q48 03/02 1000 AC Sodium Chloride 200 ML IV Fluconazole 400 MG Q2H 02/28 1200 DC Sodium Chloride 200 ML IV Fluconazole 400 MG ONCE ONE 02/28 1200 CAN Sodium Chloride 200 ML IV 02/28 1359 Fluconazole 400 MG Q2H 02/28 1200 DC 02/28 Sodium Chloride 200 ML IV 02/28 1559 1615 Fluconazole 800 MG ONCE ONE 02/28 1145 CAN IV 02/28 1146 Furosemide 20 MG ONCE ONE 02/28 2145 DC 02/28 IV 02/28 2146 2153 Furosemide 20 MG ONCE ONE 02/28 1500 DC 02/28 IV 02/28 1501 1504 Morphine Sulfate 2 MG ONCE ONE 02/28 0115 DC 02/28 IV 02/28 0116 0115 Norepinephrine 4 MG Q4H 02/27 1000 DC 02/27 Dextrose/Water 250 ML IV 1518 Pantoprazole Sodium 40 MG DAILY 02/26 2038 AC 02/28 IV 0954 Potassium Chloride 20 MEQ Q1H 02/28 2145 DC 02/28 IV 02/28 2246 2153 Sodium Chloride 1,000 ML BOLUS ONE 02/28 2014 DC 02/28 IV 02/28 2214 2044 Sodium Chloride 1,000 ML BOLUS ONE 02/28 0745 DC 02/28 IV 02/28 0944 0835 Sodium Chloride 1,000 ML Q6H 02/27 0615 DC 02/28 IV 0622 Vasopressin 40 UNITS Q16H 02/27 1130 DC 02/27 Sodium Chloride 100 ML IV 1135 Impression/Plan Impression/Problem List Impression: Ms Murphy is a 71-year-old woman with PMHx of arthritis, chronic b/l lower extremity edema presented to [place] ED on 02/22 with complaints of burning during urination and increased frequency and urgency, along with extreme weakness anorexia, and a 10 pound weight loss. She was initially being managed for sepsis of urological origin and a right leg DVT. She subsequently developed diarrhea, abdominal pain, hypotension and tachypnea requiring ICU admission. Chest X-ray shows air under the diaphragm and coupled with the findings of her earlier CT abdomen showing colonic thickening and her feculent urine, there is concern for colonic perforation. She is being evaluated by General Surgery for emergent exploratory laparotomy. Plan 1. Perforated colon with peritonitis and possible colovesical fistula * s/p surgery POD 2 * vesiculorectal fistula * currently on unasyn. * monitor vitals closely. 2. Sepsis and hypotension * IV normal saline boluses to keep MAP >65 mmhg * Continue vasopressin and levo as needed. * Monitor urine output and fluid input output * Trend lactate, improving now. 3. Metabolic acidosis * Patient has lactic acidosis from sepsis * Received bicarbonate pushes. pH improved. * Continue IV fluid resuscitation with IV normal saline Boluses * Recheck ABG in the am. 4. Right leg DVT * IV heparin has been discontinued in anticipation of surgery * Will discuss with vascular surgery about puting an IVC filter post op after patient is stabilized * IN the meantime continue DVT prophylaxis with ALPS * Restart heparin AC in the am. DVT prophylaxis ALPS Problem List: 1. Colitis 2. Acute cystitis 3. Lactic acid acidosis 4. Leukocytosis 5. Sepsis 6. UTI (urinary tract infection) Pain Ratin (unsure) Tomorrow's Labs & Rationales: icu bundle cbc Plan DVT/Prophylaxis: mechanical
[2017-02-27 08:00] VITALS: BP 130/70
--- NOTE | 2017-02-27 08:21 | PN- General Surgery ---
Subjective Subjective: intubated, not sedated. answers questions w mouthing/writing. Denies pain, n/v. no cp/sob. low urine output since OR. on 2 pressors Objective Vital Signs and I&Os Vital Signs Date Time Temp Pulse Resp B/P B/P Pulse O2 O2 Flow FiO2 Mean Ox Delivery Rate 02/27 0523 40 02/27 0506 110 134/61 02/27 0453 118 134/74 02/27 0400 97 Ventilator 40% 02/27 0249 50 02/27 0000 97.3 98 25 149/73 100 Ventilator 50% 02/27 0000 100 Ventilator 50% 02/26 2342 96 133/68 02/26 2206 50 02/26 2156 153 104/69 02/26 2043 144 66/42 02/26 2029 40 02/26 1999 100 Ventilator 40% 02/26 1600 97.0 112 39 93/70 95 Room Air 02/26 1450 99 Room Air 02/26 1331 95 02/26 1155 98.9 122 34 128/72 97 Nasal 2.0L Cannula 02/26 1130 24 93 Room Air Room Air 02/26 0800 93 Room Air Room Air Intake & Output 02/27 0800 02/27 0000 02/26 1600 02/26 0800 02/26 0000 02/25 1600 Intake Total 2255 5886 1999 505.7 931 800 Output Total 276 500 630 10 4 2 Balance 1979 5386 1370 495.7 927 798 Intake, Blood 350 Product Intake, IV 1905 5886 1999 385.7 451 Intake, Oral 0 0 120 480 800 Intake, Other 0 Number 1 1 1 3 2 2 Bowel Movements Output, 200 Drainage Output, 10 Emesis Output, 400 600 Gastric Drainage Output, Other 50 Output, Stool 1 0 10 4 2 Output, Urine 75 50 20 Patient 164 lb 162 lb 162 lb Weight Weight Bed scale Bed scale Measurement Method Physical Exam: gen-nad, awake, alert, intubated card- s1s2 tachy pulm- decreased bs at bases abd- large dressing in place- cdi, kate w dark bloody drainage, slightly ttp thoughout ext- calves soft nt, +edema, alps not on uro- iglesias in place, feculent material in urine Current Medications: Current Medications Sig/Jacobo Start time Last Medication Dose Route Stop Time Status Admin Acetaminophen 1,000 MG Q12P PRN 02/24 0845 AC N/A 1 UNIT IV Acetaminophen 650 MG Q8 02/22 2200 DC 02/26 PO 0703 Ampicillin Sodium/ 3,000 MG Q6 02/26 1200 AC 02/27 Sulbactam Sodium IV 0530 Sodium Chloride 100 ML Ceftriaxone Sodium 1,000 MG DAILY 02/23 1000 DC 02/26 IV 0900 Dexamethasone 4 MG .STK-MED ONE 02/26 1658 DC IM 02/26 1659 Dextrose 25 GM ONCE ONE 02/26 2245 DC 02/26 IV 02/26 224 2253 Digoxin 0.25 MG ONCE ONE 02/27 0400 DC 02/27 IV 02/27 0401 0453 Digoxin 0.25 MG ONCE ONE 02/26 2200 DC 02/26 IV 02/26 220 2156 Digoxin Immune LATESHA 0.25 HANNAH ONCE ONE 02/27 0345 CAN IV 02/27 0346 Digoxin Immune LATESHA 0.25 HANNAH ONCE ONE 02/26 2145 CAN IV 02/26 214 Fentanyl Citrate 250 MCG .STK-MED ONE 02/26 1657 DC IM 02/26 1658 Heparin Sodium 25,000 UNIT Q24H 02/22 2215 DC 02/25 (Porcine) IV 2145 Sodium Chloride 500 ML Hydromorphone HCl 2 MG .STK-MED ONE 02/26 1657 DC IM 02/26 1658 Lorazepam 0.5 MG ONCE ONE 02/26 1300 DC IV 02/26 1301 Metronidazole 500 MG IQ8 02/24 0800 DC 02/26 N/A 1 UNIT IV 0801 Norepinephrine 4 MG Q4H 02/27 0045 AC 02/27 Dextrose/Water 250 ML IV 0506 Norepinephrine 4 MG Q24H 02/26 2045 DC 02/26 Dextrose/Water 250 ML IV 02/27 0044 2043 Norepinephrine 4 MG .STK-MED ONE 02/26 2010 DC IV 02/26 2011 Ondansetron HCl 8 MG .STK-MED ONE 02/26 1658 DC IM 02/26 1659 Pantoprazole Sodium 40 MG DAILY 02/26 203 02/26 IV 2140 Phenylephrine HCl 40 MG Q16H 02/27 1250 Dextrose/Water 250 ML IV Phenylephrine HCl 40 MG ONCE ONE 02/26 2045 DC 02/26 Dextrose/Water 250 ML IV 02/26 Phenylephrine HCl 40 MG .STK-MED ONE 02/27 2044 DC IM 02/26 2045 Sodium Bicarbonate 50 MEQ ONCE ONE 02/26 2214 DC 02/26 IV 02/26 221 2252 Sodium Bicarbonate 150 MEQ Q5H 02/27 2044 DC 02/27 Dextrose/Water 1,000 ML IV 0440 Sodium Bicarbonate 50 MEQ ONCE ONE 02/27 2044 DC 02/26 IV 02/26 2045 2139 Sodium Chloride 1,000 ML Q6H 02/27 0615 AC 02/27 IV 0608 Sodium Chloride 1,000 ML BOLUS ONE 02/26 2214 DC 02/26 IV 02/27 0014 2215 Sodium Chloride 500 ML BOLUS ONE 02/26 2214 DC 02/26 IV 02/26 2314 2115 Sodium Chloride 1,000 ML BOLUS ONE 02/26 1600 DC 02/26 IV 02/26 1659 1559 Sodium Chloride 1,000 ML BOLUS ONE 02/26 1500 DC 02/26 IV 02/26 1559 1456 Sodium Chloride 1,000 ML BOLUS ONE 02/26 1330 DC 02/26 IV 02/26 1429 1358 Vasopressin 40 UNITS Q16H 02/27 2044 AC 02/26 Sodium Chloride 100 ML IV 2041 Results Last 48 Hours of Labs: Laboratory Tests 02/27 02/27 02/27 0620 0500 0410 Blood Gas pH (7.35 - 7.45 PH) 7.50 H pCO2 (35 - 45 TORR) 23 L pO2 (80 - 100 TORR) 94 HCO3 (21 - 28 MEQ/L) 17 L ABG O2 Sat (Measured) (>96.0 %) 96.0 Carboxyhemoglobin (1.5 - 5.0 %) 1.1 L O2 Concentration % 40 Respiration Rate (BPM) 20 O2 Delivery Method VENT Vent Mode AC Expiratory Pressure (CMH2O/P) 5 Tidal Volume (CC) 500 Chemistry Sodium Cancelled Potassium Cancelled Chloride Cancelled Carbon Dioxide Cancelled Anion Gap Cancelled BUN Cancelled Creatinine Cancelled Glucose Cancelled Lactic Acid (0.7 - 2.1 mmol/L) 6.5 H Calcium Cancelled Phosphorus Cancelled Magnesium Cancelled Total Bilirubin Cancelled AST Cancelled ALT Cancelled Albumin Cancelled Miscellaneous Phlebotomy Draw Site [place] 02/27 02/27 02/27 0410 0245 0045 Blood Gas pH (7.35 - 7.45 PH) 7.44 pCO2 (35 - 45 TORR) 23 L pO2 (80 - 100 TORR) 122 H HCO3 (21 - 28 MEQ/L) 15 L ABG O2 Sat (Measured) (>96.0 %) 97.0 Carboxyhemoglobin (1.5 - 5.0 %) 0.9 L O2 Concentration % 50 Respiration Rate (BPM) 26 O2 Delivery Method VENT Vent Mode AC Expiratory Pressure (CMH2O/P) 5 Tidal Volume (CC) 500 Chemistry Sodium (137 - 145 mmol/L) 140 Potassium (3.5 - 5.1 mmol/L) 4.6 Chloride (98 - 107 mmol/L) 107 Carbon Dioxide (22 - 30 mmol/L) 18 L Anion Gap (5 - 16) 15 BUN (7 - 17 mg/dL) 41 H Creatinine (0.5 - 1.0 mg/dL) 1.5 H Estimated GFR (>60 ml/min) 34 L Glucose (65 - 99 mg/dL) 208 H Lactic Acid (0.7 - 2.1 mmol/L) 7.7 H Calcium (8.4 - 10.2 mg/dL) 6.5 L Phosphorus (2.5 - 4.5 mg/dL) 4.7 H Magnesium (1.6 - 2.3 mg/dL) 1.7 Total Bilirubin (0.2 - 1.3 mg/dL) 1.2 AST (14 - 36 U/L) 382 H ALT (9 - 52 U/L) 172 H Troponin I (< 0.11 ng/ml) 0.05 Albumin (3.5 - 5.0 g/dL) 1.5 L Hematology CBC w Diff MAN DIFF ORDERED WBC (4.8 - 10.8 /CUMM) 27.4 H RBC (4.20 - 5.40 /CUMM) 2.98 L Hgb (12.0 - 16.0 G/DL) 8.0 L Hct (37 - 47 %) 24.8 L MCV (81.0 - 99.0 FL) 83.1 MCH (27.0 - 31.0 PG) 26.7 L RDW (11.5 - 14.5 %) 18.4 H Plt Count (130 - 400 /CUMM) 315 MPV (7.4 - 10.4 FL) 8.9 Gran % (42.2 - 75.2 %) 93.9 H Lymphocytes % (20.5 - 51.1 %) 3.4 L Monocytes % (1.7 - 9.3 %) 2.1 Eosinophils % (0 - 5 %) 0.6 Basophils % (0.0 - 2.0 %) 0 Absolute Granulocytes (1.4 - 6.5 /CUMM) 25.7 H Segmented Neutrophils (42.2 - 75.2 %) 86 H Band Neutrophils (0.0 - 5.0 %) 9 H Absolute Lymphocytes (1.2 - 3.4 /CUMM) 0.9 L Lymphocytes (20.5 - 51.1 %) 3 L Monocytes (1.7 - 9.3 %) 2 Absolute Monocytes (0.10 - 0.60 /CUMM) 0.6 Absolute Eosinophils (0.0 - 0.7 /CUMM) 0.2 Absolute Basophils (0.0 - 0.2 /CUMM) 0 Platelet Estimate (ADEQUATE) ADEQUATE Hypochromic-Microcytic 2+ Anisocytosis 1+ Target Cells 1+ Stomatocytes 1+ [place]aine Cells 1+ Elliptocytes 1+ PUBS MCHC (33.0 - 37.0 G/DL) 32.2 L Miscellaneous Phlebotomy Draw Site [place] 02/26 02/26 02/26 2310 2135 2125 Blood Gas pH (7.35 - 7.45 PH) 7.39 7.19 *L pCO2 (35 - 45 TORR) 25 L 28 L pO2 (80 - 100 TORR) 139 H 90 HCO3 (21 - 28 MEQ/L) 15 L 11 L ABG O2 Sat (Measured) (>96.0 %) 98.0 92.0 L P-50 (Temp Corrected) Y Y Carboxyhemoglobin (1.5 - 5.0 %) 0.8 L 0.3 L O2 Concentration % 50% 50% Temperature (97.0 - 100.0 FARH) 97.7 97.2 Respiration Rate (BPM) 26 20 O2 Delivery Method VENT VENT Vent Mode CMV CMV Expiratory Pressure (CMH2O/P) 5 5 Tidal Volume (CC) 500 500 Chemistry Lactic Acid (0.7 - 2.1 mmol/L) 10.3 H Miscellaneous Phlebotomy Draw Site [facility] 02/26 02/26 2125 1905 Blood Gas pH (7.35 - 7.45 PH) 7.07 *L pCO2 (35 - 45 TORR) 42 pO2 (80 - 100 TORR) 355 H HCO3 (21 - 28 MEQ/L) 12 L ABG O2 Sat (Measured) (>96.0 %) 98.0 P-50 (Temp Corrected) Y Carboxyhemoglobin (1.5 - 5.0 %) 1.7 O2 Concentration % 100 Temperature (97.0 - 100.0 FARH) 95.8 L Respiration Rate (BPM) 12 O2 Delivery Method VENT Vent Mode AC Expiratory Pressure (CMH2O/P) 5 Tidal Volume (CC) 400 Chemistry Sodium (137 - 145 mmol/L) 142 Potassium (3.5 - 5.1 mmol/L) 4.8 Chloride (98 - 107 mmol/L) 110 H Carbon Dioxide (22 - 30 mmol/L) 12 L Anion Gap (5 - 16) 19 H BUN (7 - 17 mg/dL) 38 H Creatinine (0.5 - 1.0 mg/dL) 1.5 H Estimated GFR (>60 ml/min) 34 L Glucose (65 - 99 mg/dL) 47 *L Calcium (8.4 - 10.2 mg/dL) 7.1 L Phosphorus (2.5 - 4.5 mg/dL) 6.3 H Magnesium (1.6 - 2.3 mg/dL) 2.0 Total Bilirubin (0.2 - 1.3 mg/dL) 0.7 AST (14 - 36 U/L) 343 H ALT (9 - 52 U/L) 138 H Troponin I (< 0.11 ng/ml) 0.04 Albumin (3.5 - 5.0 g/dL) 1.6 L Coagulation APTT (25 - 37 SEC) 52 H Hematology CBC w Diff MAN DIFF ORDERED WBC (4.8 - 10.8 /CUMM) 35.7 *H RBC (4.20 - 5.40 /CUMM) 2.60 L Hgb (12.0 - 16.0 G/DL) 6.6 *L Hct (37 - 47 %) 21.4 L MCV (81.0 - 99.0 FL) 82.3 MCH (27.0 - 31.0 PG) 25.2 L RDW (11.5 - 14.5 %) 18.1 H Plt Count (130 - 400 /CUMM) 348 MPV (7.4 - 10.4 FL) 8.5 Gran % (42.2 - 75.2 %) 97.5 H Lymphocytes % (20.5 - 51.1 %) 2.1 L Monocytes % (1.7 - 9.3 %) 0.4 L Eosinophils % (0 - 5 %) 0 Basophils % (0.0 - 2.0 %) 0 Absolute Granulocytes (1.4 - 6.5 /CUMM) 34.8 H Segmented Neutrophils (42.2 - 75.2 %) 71 Band Neutrophils (0.0 - 5.0 %) 23 H Absolute Lymphocytes (1.2 - 3.4 /CUMM) 0.7 L Lymphocytes (20.5 - 51.1 %) 3 L Monocytes (1.7 - 9.3 %) 1 L Absolute Monocytes (0.10 - 0.60 /CUMM) 0.1 Absolute Eosinophils (0.0 - 0.7 /CUMM) 0 Absolute Basophils (0.0 - 0.2 /CUMM) 0 Metamyelocytes (0.0 - 1.0 %) 2 H Platelet Estimate (ADEQUATE) ADEQUATE Polychromasia 2+ Hypochromic-Microcytic 3+ Anisocytosis 1+ PUBS MCHC (33.0 - 37.0 G/DL) 30.6 L Miscellaneous Phlebotomy Draw Site [facility] 02/26 02/26 02/26 1657 1305 1242 Blood Gas pH (7.35 - 7.45 PH) 7.28 *L pCO2 (35 - 45 TORR) 11 L pO2 (80 - 100 TORR) 349 H HCO3 (21 - 28 MEQ/L) 5 L ABG O2 Sat (Measured) (>96.0 %) 99.0 P-50 (Temp Corrected) N Carboxyhemoglobin (1.5 - 5.0 %) 0.2 L O2 Concentration % 100% Respiration Rate (BPM) 24 O2 Delivery Method BIPAP Vent Mode ST Expiratory Pressure (CM H2O P) 6 Inspiratory Pressure (CM H2O P) 14 Chemistry Lactic Acid (0.7 - 2.1 mmol/L) 9.5 H 11.6 H Miscellaneous Phlebotomy Draw Site LEFT [facility] 02/26 02/26 1242 1128 Chemistry Sodium (137 - 145 mmol/L) 139 Potassium (3.5 - 5.1 mmol/L) 4.5 Chloride (98 - 107 mmol/L) 105 Carbon Dioxide (22 - 30 mmol/L) 9 *L Anion Gap (5 - 16) 25 H BUN (7 - 17 mg/dL) 41 H Creatinine (0.5 - 1.0 mg/dL) 1.3 H Estimated GFR (>60 ml/min) 40 L BUN/Creatinine Ratio (7 - 25 %) 31.5 H Troponin I (< 0.11 ng/ml) < 0.01 Coagulation APTT (25 - 37 SEC) 93 H Hematology CBC w Diff NO MAN DIFF REQ WBC (4.8 - 10.8 /CUMM) 24.0 H RBC (4.20 - 5.40 /CUMM) 4.05 L Hgb (12.0 - 16.0 G/DL) 10.1 L Hct (37 - 47 %) 33.3 L MCV (81.0 - 99.0 FL) 82.4 MCH (27.0 - 31.0 PG) 24.9 L RDW (11.5 - 14.5 %) 17.8 H Plt Count (130 - 400 /CUMM) 452 H MPV (7.4 - 10.4 FL) 8.4 Gran % (42.2 - 75.2 %) 95.1 H Lymphocytes % (20.5 - 51.1 %) 2.6 L Monocytes % (1.7 - 9.3 %) 2.2 Eosinophils % (0 - 5 %) 0 Basophils % (0.0 - 2.0 %) 0.1 Absolute Granulocytes (1.4 - 6.5 /CUMM) 22.8 H Absolute Lymphocytes (1.2 - 3.4 /CUMM) 0.6 L Absolute Monocytes (0.10 - 0.60 /CUMM) 0.5 Absolute Eosinophils (0.0 - 0.7 /CUMM) 0 Absolute Basophils (0.0 - 0.2 /CUMM) 0 PUBS MCHC (33.0 - 37.0 G/DL) 30.2 L 02/26 02/25 02/25 0423 1900 0906 Chemistry Sodium (137 - 145 mmol/L) 137 Potassium (3.5 - 5.1 mmol/L) 4.1 Chloride (98 - 107 mmol/L) 105 Carbon Dioxide (22 - 30 mmol/L) 19 L Anion Gap (5 - 16) 13 BUN (7 - 17 mg/dL) 38 H Creatinine (0.5 - 1.0 mg/dL) 0.9 Estimated GFR (>60 ml/min) > 60 BUN/Creatinine Ratio (7 - 25 %) 42.2 H Coagulation APTT (25 - 37 SEC) 108 *H 31 49 H Hematology CBC w Diff MAN DIFF ORDERED WBC (4.8 - 10.8 /CUMM) 38.0 *H RBC (4.20 - 5.40 /CUMM) 3.57 L Hgb (12.0 - 16.0 G/DL) 9.2 L Hct (37 - 47 %) 28.8 L MCV (81.0 - 99.0 FL) 80.7 L MCH (27.0 - 31.0 PG) 25.7 L RDW (11.5 - 14.5 %) 17.8 H Plt Count (130 - 400 /CUMM) 431 H MPV (7.4 - 10.4 FL) 8.0 Gran % (42.2 - 75.2 %) 96.7 H Lymphocytes % (20.5 - 51.1 %) 1.7 L Monocytes % (1.7 - 9.3 %) 1.6 L Eosinophils % (0 - 5 %) 0 Basophils % (0.0 - 2.0 %) 0 Absolute Granulocytes (1.4 - 6.5 /CUMM) 36.7 H Segmented Neutrophils (42.2 - 75.2 %) 88 H Band Neutrophils (0.0 - 5.0 %) 8 H Absolute Lymphocytes (1.2 - 3.4 /CUMM) 0.7 L Lymphocytes (20.5 - 51.1 %) 4 L Absolute Monocytes (0.10 - 0.60 /CUMM) 0.6 Absolute Eosinophils (0.0 - 0.7 /CUMM) 0 Absolute Basophils (0.0 - 0.2 /CUMM) 0 Platelet Estimate (ADEQUATE) INCREASED Hypochromic-Microcytic 1+ Poikilocytosis FEW Anisocytosis 1+ PUBS MCHC (33.0 - 37.0 G/DL) 31.8 L Other Body Source Fld Total RBCs Counted (%) 100 Assessment/Plan Assessment/Plan A- 71F POD1 sp hartmanns for perforated sigmoid with gross fecal perotonitis and colovesical fistula, currently on 2 pressors intubated in ICU, though not sedated and alert/awake, with sen and minimal urine output, tachycardic to 130s , with improving leukocytosis and lactic acidosis P- -keep iglesias in place for colovesical fistula -kate to self suction- keep in place - strict i&os- ?bolus for SEN, low urine output -wean vent as tolerated -dressing change pod2 -prn pain meds -continue unasyn -continue ICU mgmt per ICU team -will dw attending Core Measures Venous Thromboembolism VTE Risk Factors Age>40 No Mechanical VTE Prophylaxis d/t N/A MechProphylax Ordered No VTE Pharm Prophylaxis d/t NA PharmProphylax ordered
--- NOTE | 2017-02-27 09:50 | RADIOLOGY REPORT ---
EXAMINATION: XR PORTABLE CHEST CLINICAL INFORMATION: Sepsis. Status post repair of colovesicular fistula. Postoperative evaluation of lung field. COMPARISON: Several recent chest x-rays, most recent of which is dated 02/26/2017. TECHNIQUE: Portable AP semierect view of the chest was obtained. FINDINGS: Endotracheal tube is 4.6 cm above the isha. Enteric tube courses into the abdomen with tip not included. Right jugular central venous line is at the cavoatrial junction. Multiple EKG leads overlie the chest, obscuring assessment. The cardiomediastinal silhouette is within normal limits in size. Low lung volumes are seen with diffuse perihilar reticular opacities and central vascular indistinctness, suggestive of pulmonary edema. Bibasilar subsegmental atelectatic changes are noted. Small layering pleural effusions are seen. There is gas seen underneath the left hemidiaphragm, most likely within a viscus structure, though residual free air from recent surgical procedure may be possible. Some degenerative changes are seen in the shoulder joints and in the spine. IMPRESSION: 1. Endotracheal tube tip 4.6 cm above the isha. 2. Enteric tube courses into the abdomen with tip not included. 3. Right jugular central venous line tip at the cavoatrial junction. 4. Lung findings are suspicious for pulmonary edema with small bilateral pleural effusions.
--- NOTE | 2017-02-27 10:43 | PN- Infect Dx ---
Subjective Subjective: Afebrile, status post 1 dose of Decadron yesterday afternoon. She remains on 2 pressors, with her blood pressure again decreased this morning, requiring an increase in her dose. She does not offer any complaints at this time. Objective Last 24 Hrs of Vital Signs/I&O Vital Signs Date Time Temp Pulse Resp B/P B/P Pulse O2 O2 Flow FiO2 Mean Ox Delivery Rate 02/27 1001 131 85/42 02/27 0836 40 02/27 0523 40 02/27 0506 110 134/61 02/27 0453 118 134/74 02/27 0400 97 Ventilator 40% 02/27 0249 50 02/27 0000 97.3 98 25 149/73 100 Ventilator 50% 02/27 0000 100 Ventilator 50% 02/26 2342 96 133/68 02/26 2206 50 02/26 2156 153 104/69 02/26 2043 144 66/42 02/26 2029 40 02/26 2000 100 Ventilator 40% 02/26 1600 97.0 112 39 93/70 95 Room Air 02/26 1450 99 Room Air 02/26 1331 95 02/26 1155 98.9 122 34 128/72 97 Nasal 2.0L Cannula 02/26 1130 24 93 Room Air Room Air Intake & Output 02/27 1600 02/27 0800 02/27 0000 Intake Total 2255 5886 Output Total 276 500 Balance 1979 5386 Intake, Blood 350 Product Intake, IV 1905 5886 Intake, Oral 0 Intake, Other 0 Number 1 1 Bowel Movements Output, 200 Drainage Output, 400 Gastric Drainage Output, Other 50 Output, Stool 1 0 Output, Urine 75 50 Physical Exam Other Physical Findings: She is awake and alert on the ventilator in no acute distress Neck right IJ triple-lumen catheter with no inflammation at the site Lungs are clear Heart regular rhythm with no murmur Abdomen is mildly distended, with a colostomy in place, with stool in the bag; MARYELLEN drain in place with bloody drainage Extremities 2+ edema both lower extremities Pete catheter remains in place Results Last 24 Hours of Lab Results: Laboratory Tests 02/27 02/27 02/27 0620 0500 0410 Blood Gas pH (7.35 - 7.45 PH) 7.50 H pCO2 (35 - 45 TORR) 23 L pO2 (80 - 100 TORR) 94 HCO3 (21 - 28 MEQ/L) 17 L ABG O2 Sat (Measured) (>96.0 %) 96.0 Carboxyhemoglobin (1.5 - 5.0 %) 1.1 L O2 Concentration % 40 Respiration Rate (BPM) 20 O2 Delivery Method VENT Vent Mode AC Expiratory Pressure (CMH2O/P) 5 Tidal Volume (CC) 500 Chemistry Sodium Cancelled Potassium Cancelled Chloride Cancelled Carbon Dioxide Cancelled Anion Gap Cancelled BUN Cancelled Creatinine Cancelled Glucose Cancelled Lactic Acid (0.7 - 2.1 mmol/L) 6.5 H Calcium Cancelled Phosphorus Cancelled Magnesium Cancelled Total Bilirubin Cancelled AST Cancelled ALT Cancelled Albumin Cancelled Miscellaneous Phlebotomy Draw Site [place] 02/27 02/27 02/27 3060 0316 0242 Blood Gas pH (7.35 - 7.45 PH) 7.44 pCO2 (35 - 45 TORR) 23 L pO2 (80 - 100 TORR) 122 H HCO3 (21 - 28 MEQ/L) 15 L ABG O2 Sat (Measured) (>96.0 %) 97.0 Carboxyhemoglobin (1.5 - 5.0 %) 0.9 L O2 Concentration % 50 Respiration Rate (BPM) 26 O2 Delivery Method VENT Vent Mode AC Expiratory Pressure (CMH2O/P) 5 Tidal Volume (CC) 500 Chemistry Sodium (137 - 145 mmol/L) 140 Potassium (3.5 - 5.1 mmol/L) 4.6 Chloride (98 - 107 mmol/L) 107 Carbon Dioxide (22 - 30 mmol/L) 18 L Anion Gap (5 - 16) 15 BUN (7 - 17 mg/dL) 41 H Creatinine (0.5 - 1.0 mg/dL) 1.5 H Estimated GFR (>60 ml/min) 34 L Glucose (65 - 99 mg/dL) 208 H Calcium (8.4 - 10.2 mg/dL) 6.5 L Phosphorus (2.5 - 4.5 mg/dL) 4.7 H Magnesium (1.6 - 2.3 mg/dL) 1.7 Total Bilirubin (0.2 - 1.3 mg/dL) 1.2 AST (14 - 36 U/L) 382 H ALT (9 - 52 U/L) 172 H Troponin I (< 0.11 ng/ml) 0.05 Albumin (3.5 - 5.0 g/dL) 1.5 L Hematology CBC w Diff MAN DIFF ORDERED Cancelled WBC (4.8 - 10.8 /CUMM) 27.4 H Cancelled RBC (4.20 - 5.40 /CUMM) 2.98 L Cancelled Hgb (12.0 - 16.0 G/DL) 8.0 L Cancelled Hct (37 - 47 %) 24.8 L Cancelled MCV (81.0 - 99.0 FL) 83.1 Cancelled MCH (27.0 - 31.0 PG) 26.7 L Cancelled RDW (11.5 - 14.5 %) 18.4 H Cancelled Plt Count (130 - 400 /CUMM) 315 Cancelled MPV (7.4 - 10.4 FL) 8.9 Cancelled Gran % (42.2 - 75.2 %) 93.9 H Lymphocytes % (20.5 - 51.1 %) 3.4 L Monocytes % (1.7 - 9.3 %) 2.1 Eosinophils % (0 - 5 %) 0.6 Basophils % (0.0 - 2.0 %) 0 Absolute Granulocytes (1.4 - 6.5 /CUMM) 25.7 H Segmented Neutrophils (42.2 - 75.2 %) 86 H Band Neutrophils (0.0 - 5.0 %) 9 H Absolute Lymphocytes (1.2 - 3.4 /CUMM) 0.9 L Lymphocytes (20.5 - 51.1 %) 3 L Monocytes (1.7 - 9.3 %) 2 Absolute Monocytes (0.10 - 0.60 /CUMM) 0.6 Absolute Eosinophils (0.0 - 0.7 /CUMM) 0.2 Absolute Basophils (0.0 - 0.2 /CUMM) 0 Platelet Estimate (ADEQUATE) ADEQUATE Hypochromic-Microcytic 2+ Anisocytosis 1+ Target Cells 1+ Stomatocytes 1+ [place] Cells 1+ Elliptocytes 1+ PUBS MCHC (33.0 - 37.0 G/DL) 32.2 L Cancelled Miscellaneous Phlebotomy Draw Site [place] 02/27 02/26 02/26 02/26 3989 7675 3348 6517 Blood Gas pH (7.35 - 7.45 PH) 7.39 7.19 *L pCO2 (35 - 45 TORR) 25 L 28 L pO2 (80 - 100 TORR) 139 H 90 HCO3 (21 - 28 MEQ/L) 15 L 11 L ABG O2 Sat (Measured) (>96.0 %) 98.0 92.0 L P-50 (Temp Corrected) Y Y Carboxyhemoglobin (1.5 - 5.0 %) 0.8 L 0.3 L O2 Concentration % 50% 50% Temperature (97.0 - 100.0 FARH) 97.7 97.2 Respiration Rate (BPM) 26 20 O2 Delivery Method VENT VENT Vent Mode CMV CMV Expiratory Pressure (CMH2O/P) 5 5 Tidal Volume (CC) 500 500 Chemistry Lactic Acid (0.7 - 2.1 mmol/L) 7.7 H 10.3 H Miscellaneous Phlebotomy Draw Site [place] 02/26 1905 Blood Gas pH (7.35 - 7.45 PH) 7.07 *L pCO2 (35 - 45 TORR) 42 pO2 (80 - 100 TORR) 355 H HCO3 (21 - 28 MEQ/L) 12 L ABG O2 Sat (Measured) (>96.0 %) 98.0 P-50 (Temp Corrected) Y Carboxyhemoglobin (1.5 - 5.0 %) 1.7 O2 Concentration % 100 Temperature (97.0 - 100.0 FARH) 95.8 L Respiration Rate (BPM) 12 O2 Delivery Method VENT Vent Mode AC Expiratory Pressure (CMH2O/P) 5 Tidal Volume (CC) 400 Chemistry Sodium (137 - 145 mmol/L) 142 Potassium (3.5 - 5.1 mmol/L) 4.8 Chloride (98 - 107 mmol/L) 110 H Carbon Dioxide (22 - 30 mmol/L) 12 L Anion Gap (5 - 16) 19 H BUN (7 - 17 mg/dL) 38 H Creatinine (0.5 - 1.0 mg/dL) 1.5 H Estimated GFR (>60 ml/min) 34 L Glucose (65 - 99 mg/dL) 47 *L Calcium (8.4 - 10.2 mg/dL) 7.1 L Phosphorus (2.5 - 4.5 mg/dL) 6.3 H Magnesium (1.6 - 2.3 mg/dL) 2.0 Total Bilirubin (0.2 - 1.3 mg/dL) 0.7 AST (14 - 36 U/L) 343 H ALT (9 - 52 U/L) 138 H Troponin I (< 0.11 ng/ml) 0.04 Albumin (3.5 - 5.0 g/dL) 1.6 L Coagulation APTT (25 - 37 SEC) 52 H Hematology CBC w Diff MAN DIFF ORDERED WBC (4.8 - 10.8 /CUMM) 35.7 *H RBC (4.20 - 5.40 /CUMM) 2.60 L Hgb (12.0 - 16.0 G/DL) 6.6 *L Hct (37 - 47 %) 21.4 L MCV (81.0 - 99.0 FL) 82.3 MCH (27.0 - 31.0 PG) 25.2 L RDW (11.5 - 14.5 %) 18.1 H Plt Count (130 - 400 /CUMM) 348 MPV (7.4 - 10.4 FL) 8.5 Gran % (42.2 - 75.2 %) 97.5 H Lymphocytes % (20.5 - 51.1 %) 2.1 L Monocytes % (1.7 - 9.3 %) 0.4 L Eosinophils % (0 - 5 %) 0 Basophils % (0.0 - 2.0 %) 0 Absolute Granulocytes (1.4 - 6.5 /CUMM) 34.8 H Segmented Neutrophils (42.2 - 75.2 %) 71 Band Neutrophils (0.0 - 5.0 %) 23 H Absolute Lymphocytes (1.2 - 3.4 /CUMM) 0.7 L Lymphocytes (20.5 - 51.1 %) 3 L Monocytes (1.7 - 9.3 %) 1 L Absolute Monocytes (0.10 - 0.60 /CUMM) 0.1 Absolute Eosinophils (0.0 - 0.7 /CUMM) 0 Absolute Basophils (0.0 - 0.2 /CUMM) 0 Metamyelocytes (0.0 - 1.0 %) 2 H Platelet Estimate (ADEQUATE) ADEQUATE Polychromasia 2+ Hypochromic-Microcytic 3+ Anisocytosis 1+ PUBS MCHC (33.0 - 37.0 G/DL) 30.6 L Miscellaneous Phlebotomy Draw Site RIGHT RADIAL 02/26 02/26 02/26 1657 1305 1242 Blood Gas pH (7.35 - 7.45 PH) 7.28 *L pCO2 (35 - 45 TORR) 11 L pO2 (80 - 100 TORR) 349 H HCO3 (21 - 28 MEQ/L) 5 L ABG O2 Sat (Measured) (>96.0 %) 99.0 P-50 (Temp Corrected) N Carboxyhemoglobin (1.5 - 5.0 %) 0.2 L O2 Concentration % 100% Respiration Rate (BPM) 24 O2 Delivery Method BIPAP Vent Mode ST Expiratory Pressure (CM H2O P) 6 Inspiratory Pressure (CM H2O P) 14 Chemistry Lactic Acid (0.7 - 2.1 mmol/L) 9.5 H 11.6 H Miscellaneous Phlebotomy Draw Site LEFT RADIAL 02/26 02/26 1242 1128 Chemistry Sodium (137 - 145 mmol/L) 139 Potassium (3.5 - 5.1 mmol/L) 4.5 Chloride (98 - 107 mmol/L) 105 Carbon Dioxide (22 - 30 mmol/L) 9 *L Anion Gap (5 - 16) 25 H BUN (7 - 17 mg/dL) 41 H Creatinine (0.5 - 1.0 mg/dL) 1.3 H Estimated GFR (>60 ml/min) 40 L BUN/Creatinine Ratio (7 - 25 %) 31.5 H Troponin I (< 0.11 ng/ml) < 0.01 Coagulation APTT (25 - 37 SEC) 93 H Hematology CBC w Diff NO MAN DIFF REQ WBC (4.8 - 10.8 /CUMM) 24.0 H RBC (4.20 - 5.40 /CUMM) 4.05 L Hgb (12.0 - 16.0 G/DL) 10.1 L Hct (37 - 47 %) 33.3 L MCV (81.0 - 99.0 FL) 82.4 MCH (27.0 - 31.0 PG) 24.9 L RDW (11.5 - 14.5 %) 17.8 H Plt Count (130 - 400 /CUMM) 452 H MPV (7.4 - 10.4 FL) 8.4 Gran % (42.2 - 75.2 %) 95.1 H Lymphocytes % (20.5 - 51.1 %) 2.6 L Monocytes % (1.7 - 9.3 %) 2.2 Eosinophils % (0 - 5 %) 0 Basophils % (0.0 - 2.0 %) 0.1 Absolute Granulocytes (1.4 - 6.5 /CUMM) 22.8 H Absolute Lymphocytes (1.2 - 3.4 /CUMM) 0.6 L Absolute Monocytes (0.10 - 0.60 /CUMM) 0.5 Absolute Eosinophils (0.0 - 0.7 /CUMM) 0 Absolute Basophils (0.0 - 0.2 /CUMM) 0 PUBS MCHC (33.0 - 37.0 G/DL) 30.2 L Last 24 Hours of Caleb Results: OR culture February 26 positive for gram-negative rods, gram-positive cocci and gram-positive rods Blood cultures February 26 negative Urine culture February 26 pending Stool C. difficile February 26 pending Recent Imaging Studies: Chest x-ray February 27 reveals diffuse perihilar reticular opacities and central vascular indistinctness, suggestive of pulmonary edema; bibasilar atelectasis with small layering pleural effusions Assessment/Plan Impression: Critically ill with hypotension, requiring pressors, status post a sigmoid colectomy with end colostomy and takedown of a colovesical fistula (with left oophorectomy) yesterday for a perforated diverticulitis with a colovesical fistula. She is currently afebrile with a leukocytosis and bandemia, though these have improved from yesterday, on Unasyn for polymicrobial sepsis, with Clostridium and Escherichia coli isolated from the blood cultures and, likely, from the OR cultures as well. Her renal insufficiency and elevated liver enzymes are likely secondary to sepsis. Of note she was on Heparin for a right lower extremity DVT preop and this will need to be reevaluated. Suggestion: 1. Further management with regard to anticoagulation per the critical care team and Surgery 2. Follow-up OR cultures 3. Continue Unasyn pending above
--- NOTE | 2017-02-27 10:45 | PN- Att Addend ---
Attending Addendum Attending Brief Note Patient in the intensive care unit, intubated but not sedated alert poor urine output, on 2 pressors. Status post Rodri's procedure for perforated sigmoid with gross fecal peritonitis and colovesical fistula white count is slowly coming down so is the lactic acid otherwise patient is still in critical condition will be monitored closely, antibiotics as per infectious diseases recommendations. Will try to wean off the ventilator if possible hopefully her blood pressure will improve and her urine output Intake & Output 02/27 1600 02/27 0400 02/26 1600 02/26 0400 02/25 1600 02/25 0400 Intake Total 2255 5886 2505.7 931 1248 860.9 Output Total 276 500 640 4 302 450 Balance 1979 5386 1865.7 927 946 410.9 Intake, Blood 350 Product Intake, IV 1905 5886 2385.7 451 328 120.9 Intake, Oral 0 120 480 920 740 Intake, Other 0 Number 1 1 4 2 4 1 Bowel Movements Output, 200 Drainage Output, 10 Emesis Output, 400 600 Gastric Drainage Output, Other 50 Output, Stool 1 0 10 4 2 Output, Urine 75 50 20 300 450 Patient 164 lb 162 lb 162 lb Weight Weight Bed scale Bed scale Measurement Method Current Medications Sig/Jacobo Start time Last Medication Dose Route Stop Time Status Admin Acetaminophen 1,000 MG Q12P PRN 02/24 0845 AC N/A 1 UNIT IV Acetaminophen 650 MG Q8 02/22 2200 DC 02/26 PO 0703 Ampicillin Sodium/ 3,000 MG Q6 02/26 1200 AC 02/27 Sulbactam Sodium IV 0530 Sodium Chloride 100 ML Ceftriaxone Sodium 1,000 MG DAILY 02/23 1000 DC 02/26 IV 0900 Dexamethasone 4 MG .STK-MED ONE 02/26 1658 DC IM 02/26 1659 Dextrose 25 GM ONCE ONE 02/26 2245 DC 02/26 IV 02/26 224 2253 Digoxin 0.25 MG ONCE ONE 02/27 0400 DC 02/27 IV 02/27 040 0453 Digoxin 0.25 MG ONCE ONE 02/26 2200 DC 02/26 IV 02/26 2200 2156 Digoxin Immune LATESHA 0.25 HANNAH ONCE ONE 02/27 0345 CAN IV 02/27 0346 Digoxin Immune LATESHA 0.25 HANNAH ONCE ONE 02/26 2145 CAN IV 02/26 214 Fentanyl Citrate 250 MCG .STK-MED ONE 02/26 1657 DC IM 02/26 1658 Heparin Sodium 25,000 UNIT Q24H 02/22 2215 DC 02/25 (Porcine) IV 2145 Sodium Chloride 500 ML Hydromorphone HCl 2 MG .STK-MED ONE 02/26 1657 DC IM 02/26 1658 Lorazepam 0.5 MG ONCE ONE 02/26 1300 DC IV 02/26 1301 Metronidazole 500 MG IQ8 02/24 0800 DC 02/26 N/A 1 UNIT IV 0801 Morphine Sulfate 2 MG ONCE ONE 02/27 0915 DC 02/27 IV 02/27 0916 0938 Norepinephrine 4 MG Q4H 02/27 1000 AC 02/27 Dextrose/Water 250 ML IV 1001 Norepinephrine 4 MG Q4H 02/27 0045 DC 02/27 Dextrose/Water 250 ML IV 0506 Norepinephrine 4 MG Q24H 02/26 2045 DC 02/26 Dextrose/Water 250 ML IV 02/27 0044 2043 Norepinephrine 4 MG .STK-MED ONE 02/26 2010 DC IV 02/26 2011 Ondansetron HCl 8 MG .STK-MED ONE 02/26 1658 DC IM 02/26 1659 Pantoprazole Sodium 40 MG DAILY 02/26 203 AC 02/27 IV 1021 Phenylephrine HCl 40 MG Q16H 02/27 1250 DC Dextrose/Water 250 ML IV Phenylephrine HCl 40 MG ONCE ONE 02/27 2044 DC 02/26 Dextrose/Water 250 ML IV 02/26 2045 205 Phenylephrine HCl 40 MG .STK-MED ONE 02/26 204 DC IM 02/26 204 Sodium Bicarbonate 50 MEQ ONCE ONE 02/26 2214 DC 02/26 IV 02/26 2216 2252 Sodium Bicarbonate 150 MEQ Q5H 02/26 2045 DC 02/27 Dextrose/Water 1,000 ML IV 0440 Sodium Bicarbonate 50 MEQ ONCE ONE 02/26 2045 DC 02/26 IV 02/26 2046 2139 Sodium Chloride 1,000 ML BOLUS ONE 02/27 0945 AC 02/27 IV 02/27 1144 0940 Sodium Chloride 1,000 ML Q6H 02/27 0615 AC 02/27 IV 0608 Sodium Chloride 1,000 ML BOLUS ONE 02/265 DC 02/26 IV 02/27 0014 2215 Sodium Chloride 500 ML BOLUS ONE 02/26 2214 DC 02/26 IV 02/26 2314 2115 Sodium Chloride 1,000 ML BOLUS ONE 02/26 1600 DC 02/26 IV 02/26 1659 1559 Sodium Chloride 1,000 ML BOLUS ONE 02/26 1500 DC 02/26 IV 02/26 1559 1456 Sodium Chloride 1,000 ML BOLUS ONE 02/26 1330 DC 02/26 IV 02/26 1429 1358 Vasopressin 40 UNITS Q16H 02/27 2044 DC 02/26 Sodium Chloride 100 ML IV 2041 Laboratory Tests 02/27/17 0620: pH 7.50 H, pCO2 23 L, pO2 94, HCO3 17 L, ABG O2 Sat (Measured) 96.0, Carboxyhemoglobin 1.1 L, O2 Concentration % 40, Respiration Rate 20, O2 Delivery Method VENT, Vent Mode AC, Expiratory Pressure 5, Tidal Volume 500, Phlebotomy Draw Site [place] 02/27/17 0500: Sodium Cancelled, Potassium Cancelled, Chloride Cancelled, Carbon Dioxide Cancelled, Anion Gap Cancelled, BUN Cancelled, Creatinine Cancelled, Glucose Cancelled, Calcium Cancelled, Phosphorus Cancelled, Magnesium Cancelled, Total Bilirubin Cancelled, AST Cancelled, ALT Cancelled, Albumin Cancelled 02/27/17 0410: Lactic Acid 6.5 H 02/27/17 0410: Anion Gap 15, Estimated GFR 34 L, Glucose 208 H, Calcium 6.5 L, Phosphorus 4.7 H, Magnesium 1.7, Total Bilirubin 1.2, AST 382 H, ALT 172 H, Troponin I 0.05, Albumin 1.5 L, CBC w Diff MAN DIFF ORDERED, RBC 2.98 L, MCV 83.1, MCH 26.7 L, RDW 18.4 H, MPV 8.9, Gran % 93.9 H, Lymphocytes % 3.4 L, Monocytes % 2.1, Eosinophils % 0.6, Basophils % 0, Absolute Granulocytes 25.7 H, Segmented Neutrophils 86 H, Band Neutrophils 9 H, Absolute Lymphocytes 0.9 L, Lymphocytes 3 L, Monocytes 2, Absolute Monocytes 0.6, Absolute Eosinophils 0.2, Absolute Basophils 0, Platelet Estimate ADEQUATE, Hypochromic-Microcytic 2+, Anisocytosis 1+, Target Cells 1+, Stomatocytes 1+, [place] Cells 1+, Elliptocytes 1 +, PUBS MCHC 32.2 L 02/27/17 0311: CBC w Diff Cancelled, WBC Cancelled, RBC Cancelled, Hgb Cancelled, Hct Cancelled , MCV Cancelled, MCH Cancelled, RDW Cancelled, Plt Count Cancelled, MPV Cancelled, PUBS MCHC Cancelled 02/27/17 0245: pH 7.44, pCO2 23 L, pO2 122 H, HCO3 15 L, ABG O2 Sat (Measured) 97.0, Carboxyhemoglobin 0.9 L, O2 Concentration % 50, Respiration Rate 26, O2 Delivery Method VENT, Vent Mode AC, Expiratory Pressure 5, Tidal Volume 500, Phlebotomy Draw Site [place] 02/27/17 0045: Lactic Acid 7.7 H 02/26/17 2310: pH 7.39, pCO2 25 L, pO2 139 H, HCO3 15 L, ABG O2 Sat (Measured) 98.0, P-50 ( Temp Corrected) Y, Carboxyhemoglobin 0.8 L, O2 Concentration % 50%, Temperature 97.7, Respiration Rate 26, O2 Delivery Method VENT, Vent Mode CMV, Expiratory Pressure 5, Tidal Volume 500, Phlebotomy Draw Site [place] 02/26/175: pH 7.19 *L, pCO2 28 L, pO2 90, HCO3 11 L, ABG O2 Sat (Measured) 92.0 L, P-50 (Temp Corrected) Y, Carboxyhemoglobin 0.3 L, O2 Concentration % 50%, Temperature 97.2, Respiration Rate 20, O2 Delivery Method VENT, Vent Mode CMV, Expiratory Pressure 5, Tidal Volume 500, Phlebotomy Draw Site [place] 02/26/172124: Lactic Acid 10.3 H 02/26/172124: Anion Gap 19 H, Estimated GFR 34 L, Glucose 47 *L, Calcium 7.1 L, Phosphorus 6.3 H, Magnesium 2.0, Total Bilirubin 0.7, AST 343 H, ALT 138 H, Troponin I 0.04, Albumin 1.6 L, APTT 52 H, CBC w Diff MAN DIFF ORDERED, RBC 2.60 L, MCV 82.3, MCH 25.2 L, RDW 18.1 H, MPV 8.5, Gran % 97.5 H, Lymphocytes % 2.1 L, Monocytes % 0.4 L, Eosinophils % 0, Basophils % 0, Absolute Granulocytes 34.8 H, Segmented Neutrophils 71, Band Neutrophils 23 H, Absolute Lymphocytes 0.7 L , Lymphocytes 3 L, Monocytes 1 L, Absolute Monocytes 0.1, Absolute Eosinophils 0, Absolute Basophils 0, Metamyelocytes 2 H, Platelet Estimate ADEQUATE, Polychromasia 2+, Hypochromic-Microcytic 3+, Anisocytosis 1+, PUBS MCHC 30.6 L 02/26/17 1905: pH 7.07 *L, pCO2 42, pO2 355 H, HCO3 12 L, ABG O2 Sat (Measured) 98.0, P-50 ( Temp Corrected) Y, Carboxyhemoglobin 1.7, O2 Concentration % 100, Temperature 95.8 L, Respiration Rate 12, O2 Delivery Method VENT, Vent Mode AC, Expiratory Pressure 5, Tidal Volume 400, Phlebotomy Draw Site RIGHT RADIAL 02/26/17 1657: Lactic Acid 9.5 H 02/26/17 1305: pH 7.28 *L, pCO2 11 L, pO2 349 H, HCO3 5 L, ABG O2 Sat (Measured) 99.0, P-50 (Temp Corrected) N, Carboxyhemoglobin 0.2 L, O2 Concentration % 100%, Respiration Rate 24, O2 Delivery Method BIPAP, Vent Mode ST, Expiratory Pressure 6, Inspiratory Pressure 14, Phlebotomy Draw Site LEFT RADIAL 02/26/17 1242: Lactic Acid 11.6 H 02/26/17 1242: Anion Gap 25 H, Estimated GFR 40 L, BUN/Creatinine Ratio 31.5 H, Troponin I < 0.01, CBC w Diff NO MAN DIFF REQ, RBC 4.05 L, MCV 82.4, MCH 24.9 L, RDW 17.8 H, MPV 8.4, Gran % 95.1 H, Lymphocytes % 2.6 L, Monocytes % 2.2, Eosinophils % 0, Basophils % 0.1, Absolute Granulocytes 22.8 H, Absolute Lymphocytes 0.6 L, Absolute Monocytes 0.5, Absolute Eosinophils 0, Absolute Basophils 0, PUBS MCHC 30.2 L 02/26/17 1128: APTT 93 H 02/26/17 0423: Anion Gap 13, Estimated GFR > 60, BUN/Creatinine Ratio 42.2 H, APTT 108 *H, CBC w Diff MAN DIFF ORDERED, RBC 3.57 L, MCV 80.7 L, MCH 25.7 L, RDW 17.8 H, MPV 8.0, Gran % 96.7 H, Lymphocytes % 1.7 L, Monocytes % 1.6 L, Eosinophils % 0, Basophils % 0, Absolute Granulocytes 36.7 H, Segmented Neutrophils 88 H, Band Neutrophils 8 H, Absolute Lymphocytes 0.7 L, Lymphocytes 4 L, Absolute Monocytes 0.6, Absolute Eosinophils 0, Absolute Basophils 0, Platelet Estimate INCREASED, Hypochromic-Microcytic 1+, Poikilocytosis FEW, Anisocytosis 1+, PUBS MCHC 31.8 L, Fld Total RBCs Counted 100 02/25/17 1900: APTT 31 02/25/17 0906: APTT 49 H 02/25/17 0730: Anion Gap 12, Estimated GFR 55 L, BUN/Creatinine Ratio 33.0 H, CBC w Diff MAN DIFF ORDERED, RBC 3.47 L, MCV 80.6 L, MCH 25.8 L, RDW 17.5 H, MPV 7.9, Gran % 96.1 H, Lymphocytes % 2.4 L, Monocytes % 1.5 L, Eosinophils % 0, Basophils % 0, Absolute Granulocytes 29.6 H, Segmented Neutrophils 79 H, Band Neutrophils 18 H, Absolute Lymphocytes 0.7 L, Lymphocytes 2 L, Monocytes 1 L , Absolute Monocytes 0.5, Absolute Eosinophils 0, Absolute Basophils 0, Platelet Estimate ADEQUATE, Hypochromic-Microcytic 2+, Anisocytosis 1+, PUBS MCHC 32.0 L 02/25/17 0600: APTT Cancelled 02/25/17 0320: PT 20.2 H, INR 1.94 H, APTT 108 *H 02/24/17 2215: APTT 44 H 02/24/17 1441: APTT 107 *H Microbiology 02/26 2345 URINE ROUT: Urine Culture - RECD 02/265 BLOOD: Blood Culture - RECD 02/26 2100 LOWER RESP: Respiratory Culture - COLB 02/26 2100 LOWER RESP: Gram Stain - COLB 02/26 1900 STOOL: Clostridium difficile Toxin A & B - RECD 02/26 1835 BODY FLUID: Body Fluid Culture - RES 02/26 1835 BODY FLUID: Gram Stain - RES 02/26 1400 URINE ROUT: Urine Culture - RECD 02/26 1330 UPPER RESP: Surveillance Culture - RECD 02/26 1330 GI: Surveillance Culture - RECD 02/26 0305 BLOOD: Blood Culture - RECD Microbiology Date/Time Procedure - Status Source Growth 02/26 2345 Urine Culture - RECD URINE ROUT 02/265 Blood Culture - RECD BLOOD 02/26 2100 Respiratory Culture - COLB LOWER RESP 02/26 2100 Gram Stain - COLB LOWER RESP 02/26 1900 Clostridium difficile Toxin A & B - RECD STOOL 02/26 1835 Body Fluid Culture - RES BODY FLUID 02/26 1835 Gram Stain - RES BODY FLUID 02/26 1400 Urine Culture - RECD URINE ROUT 02/26 1330 Surveillance Culture - RECD UPPER RESP 02/26 1330 Surveillance Culture - RECD GI 02/26 0305 Blood Culture - RECD BLOOD Vital Signs Date Time Temp Pulse Resp B/P B/P Pulse O2 O2 Flow FiO2 Mean Ox Delivery Rate 02/27 1001 131 85/42 02/27 0836 40 02/27 0523 40 02/27 0506 110 134/61 02/27 0453 118 134/74 02/27 0400 97 Ventilator 40% 02/27 0249 50
--- NOTE | 2017-02-27 12:32 | PN- General Surgery ---
Surgical Brief Attending Note Brief Attending Note: Patient remains critically ill with sepsis related to peritonitis and colovesicle fistula, now s/p source control surgery. Given the severity of peritonitis, anticipate ongoing 3rd spacing of intravascular fluid. As such she will need intermittent fluid boluses to maintain intravascular volume. Recommend measuring CVP when BP normal and low to get a sense of her ideal CVP for perfusion. Wean pressors as tolerated/Vent per ICU. Initial cultures sensitive to Unasyn. Continue pending intraoperative cultures. Resume anticoagulation tomorrow for known DVT pending h/h stability.
--- NOTE | 2017-02-27 14:14 | ECHOCARDIOGRAM REPORT ---
SIMBA PINEDA Age: 71 : 1945 Gender: F Exam Date: 02/27/2017 10:44 Exam Location: [facility] Ht (in): 66 Wt (lb): 164 BSA: 1.88 BP: 85 / 42 Ordering Physician: Pearl Brown MD Referring Physician: Pearl Brown MD Technologist: Oscar Fraire [facility] Room Number: 110 Indications: HYPOTENSION Rhythm: Sinus Technical Quality: Fair FINDINGS Left Ventricle Normal size left ventricle. Borderline to mild concentric left ventricular hypertrophy. No obvious regional wall motion abnormalities. Normal left ventricular ejection fraction visually estimated at >60%. Abnormal relaxation filling pattern of the left ventricle for age (stage 1 diastolic dysfunction). Right Ventricle Right ventricle not well visualized, grossly normal. Right Atrium Right atrium not well visualized, grossly normal. Left Atrium Normal left atrial size. Mitral Valve Mitral valve mildly thickened. Trace mitral regurgitation. Aortic Valve Aortic valve not well visualized. Mild aortic sclerosis. No aortic valve stenosis or regurgitation. Tricuspid Valve Structurally normal tricuspid valve. Mild tricuspid regurgitation. Right ventricular systolic pressure estimated to be mildly elevated at 39 mmHg. Pulmonic Valve Pulmonic valve not well visualized, grossly normal. No pulmonic regurgitation. Pericardium Minimal pericardial effusion (normal variant). Great Vessels Normal size aortic root. CONCLUSIONS Normal size left ventricle. Borderline to mild concentric left ventricular hypertrophy. No obvious regional wall motion abnormalities. Normal left ventricular ejection fraction visually estimated at > 60%. Abnormal relaxation filling pattern of the left ventricle for age (stage 1 diastolic dysfunction). Right ventricle not well visualized, grossly normal. Right atrium not well visualized, grossly normal. Normal left atrial size. Trace mitral regurgitation. Mild tricuspid regurgitation. Right ventricular systolic pressure estimated to be mildly elevated at 39 mmHg. Minimal pericardial effusion (normal variant). Ryan Graves M.D. (Electronically Signed) Final Date: 27 February 2017 14:13 MEASUREMENTS (Male / Female) Normal Values 2D ECHO LV Diastolic Diameter PLAX 3.9 cm 4.2 - 5.9 / 3.9 - 5.3 cm LV Systolic Diameter PLAX 2.0 cm 2.1 - 4.0 cm LV Fractional Shortening PLAX 48.7 % 25 - 46 % LV Ejection Fraction 2D Teich 80.7 % IVS Diastolic Thickness 1.0 cm LVPW Diastolic Thickness 1.1 cm LV Relative Wall Thickness 0.5 LVOT Diameter 1.7 cm Aortic Root Diameter 2.9 cm LA Systolic Diameter LX 2.2 cm 3.0 - 4.0 / 2.7 - 3.8 cm DOPPLER AV Peak Velocity 160.0 cm/s AV Peak Gradient 10.2 mmHg AV Mean Velocity 120.0 cm/s AV Mean Gradient 7.0 mmHg AV Velocity Time Integral 28.9 cm LVOT Peak Velocity 56.4 cm/s LVOT Peak Gradient 1.3 mmHg LVOT Mean Velocity 36.0 cm/s LVOT Mean Gradient 1.0 mmHg LVOT Velocity Time Integral 11.2 cm LVOT Stroke Volume 25.4 cm AV Area Cont Eq vti 0.9 cm AV Area Cont Eq pk 0.8 cm MV Peak Velocity 74.4 cm/s MV Peak Gradient 2.2 mmHg MV Mean Velocity 51.0 cm/s MV Mean Gradient 1.0 mmHg Mitral E Point Velocity 40.9 cm/s Mitral A Point Velocity 48.1 cm/s Mitral E to A Ratio 0.9 MV PHT Velocity 73.3 cm/s MV Deceleration Navarro 400.0 cm/s MV Pressure Half Time 55.0 ms MV Area PHT 4.0 cm MV Deceleration Time 148.0 ms TR Peak Velocity 292.0 cm/s TR Peak Gradient 34.1 mmHg Right Atrial Pressure 5.0 mmHg Pulmonary Artery Systolic Pressu 39.1 mmHg Right Ventricular Systolic Press 39.1 mmHg PV Peak Velocity 152.0 cm/s PV Peak Gradient 9.2 mmHg PV Mean Velocity 98.8 cm/s PV Mean Gradient 5.0 mmHg PV Velocity Time Integral 23.6 cm LV E' Lateral Velocity 12.0 cm/s Mitral E to LV E' Lateral Ratio 3.4 LV E' Septal Velocity 7.6 cm/s Mitral E to LV E' Septal Ratio 5.4
--- NOTE | 2017-02-27 15:35 | Transfer of Care Summary ---
Hospital Course Course Hospital Course: Follow-up For: Sepsis of urologic origin Diarrhea/colitis Diverticulitis Polymicrobial sepsis Right femoral vein DVT Microcytic anemia Thrombocytosis Acute kidney injury Lactic acidosis elevated proBNP HPI The patient is 71-year-old female with past medical history of arthritis, chronic bilateral lower extremity edema presented to [place] ED on 02/22 with complaint of burning during urination and increased frequency and urgency, extreme weakness. Also reported anorexia, 10 pound weight loss recently. She was seen in the emergency room at [facility] 2 months prior to this admission with right-sided abdominal pain and bright red blood in the toilet, found to be afebrile with a white blood count of 14,000, UA with packed WBCs and a CT of the abdomen and pelvis revealing abnormal wall thickening of the distal left and proximal sigmoid colon, discharged on Ciprofloxacin for a presumed urinary tract infection, with no urine culture sent. VS 99.0 MAXIMUM TEMPERATURE of 101.4. Heart rate 130, BP on presentation 134/62 Pertinent labs -hb 9.7/30.7 WBC count to 22.9 platelets 492 bands 1, anion gap 17, BUN 25 creatinine 1.2 baseline 1.0, BNP 2730, lactic acid 2.6 -UA turbid positive for nitrates and large leukoesterase packed with WBCs and bacteria moderate epithelial cells The patient was admitted to general medicine floor and is being treated and evaluated for following conditions #Sepsis secondary to urological origin Patient presented with suprapubic discomfort, burning micturition, generalized weakness and was found to have elevated white count, bandemia, lactic acidosis, temperature 101.4, HR 130 plus UA picture consistent with UTI with positive esterases, nitrites, packed WBC, bacteria. She was admitted to general medicine floor for sepsis secondary to urological origin. She was started on IV ceftriaxone pending urine cultures. However later she was found to have urine culture positive for Escherichia coli, pansensitive. Infectious disease specialist was consulted. She was continued on IV ceftriaxone for 4 days, later switched to Unasyn for polymicrobial sepsis and sepsis secondary to UTI. Right femoral vein DVT Given her dilated lower extremity swelling , ultrasound lower extremities was done to rule out DVT. she was found to have nonocclusive thrombus in the right proximal femoral vein. Guaiac stool was positive. However she was started on IV heparin drip, With close monitoring of hemoglobin. CT angiogram of chest was done with no evidence of acute pulmonary embolism. She was found to have moderate bilateral pleural effusions. Vascular surgery was consulted. IF she develops GI bleed and/or decreasing hematocrit, an IVC filter placement would be reasonable with cessation of the anticoagulation until the source of GI bleed is found. Because of unplanned weight loss and unprovoked DVT, it is reasonable to workup the patient for an occult malignancy. polymicrobial sepsis/diverticulitis/colitis Patient reported loose watery stools since presenting to ER. Denied any nausea, vomiting. However she has 10 out of 10 abdominal pain with rebound tenderness, with a localized peritonitis. CAT scan abdomen and pelvis with oral and IV contrast reveals an interval increase in the bilateral pleural effusions, with bilateral densities and a filling defect in a right lower lobe pulmonary vessel; thickening of the large bowel wall at the distal descending/proximal sigmoid colon, more prominent compared to the previous study; moderate ascites, with no definite free intra-abdominal/intrapelvic air. Polymicrobial sepsis, with Clostridium and Escherichia coli isolated from the blood cultures, presumably secondary to an intra-abdominal process. cdiff was neg. She was continued on IV ceftriaxone and IV Flagyl for 3 days and switched to IV Unasyn on day 4. URRUTIA PROCEDURE /Perforated colon with peritonitis and possible colovesical fistula On 02/26 she developed worsening tachypnea and respiratory distress with hypotension necessitating ICU transfer. She was transferred to the ICU for metabolic acidosis, respiratory distress and hypotension all consistent with sepsis. Imaging suggested air under the diaphram. A chest X-ray showed free air under the diaphragm with evidence for colovesicle fistula. In preparation for surgery, she underwent nasogastric decompression and foleys placement. TLC catheter was placed at bedside. She underwent sigmoid colectomy with end colostomy and takedown of colovesical fistula on 02/26/[address] Jacobs. She was intubated after the surgery. She was started on 3 pressors and bicarbonate drip. She also received 1 unit of packed RBC for postoperative anemia. Resp failure Respiratory failure, on mechanical ventilation with evidence of bilateral pulmonary infiltrates suggestive of atelectasis versus aspiration. Ruled out Pulmonary embolism Patient was found to have right lower extremity DVT. She was on IV heparin drip. CAT scan abdomen was done which showed findings suggestive of pulmonary embolism. CT angiogram on 02/25 ruled out any pulmonary embolism. #SEN Patient presenting creatinine of 1.2-- basline 0.9 likely secondary to dehydration and sepsis of polymicrobial origin. #Lactic acidosis Patient presenting with lactic acid of 2.6 and anion gap of 17. Likely secondary to sepsis #Anemia Patient is presenting with H/H of 9.7/30.7 in setting of low MCV. #Thrombocytosis Likely reactive to sepsis Transaminitis Secondary to septic shock #Bilateral lower extremity edema extending upto thighs more so on Right Patient has history of chronic lower extremity edema, proBNP 2730 -Echocardiogram showed normal ejection fraction with stage I diastolic dysfunction. Right ventricle systolic pressure 33. #Nonspecific lucencies in the spine largest measuring 9 mm in the S1. Patient will require further evaluation with can be done as an outpatient basis. unstageble pressure injury Patient was found to have 5x 9 cm area of poorly blanching erythema to buttocks, coccyx with the left buttocks 0.8x0.5 cm intact skin and right buttock 0.3 x 0.4 cm unstageable pressure injury. * Cleanse buttocks wounds with normal saline followed by hydrocolloid dressing every 3 days * Apply moisture barrier to periwound ski full code heart healthy diet DVT prophylaxis with IV heparin Assessment/Plan: as above
[2017-02-27 16:00] VITALS: BP 130/50
--- NOTE | 2017-02-27 17:00 | Cons- Cardiology ---
General Information and HPI Consulting Request Date of Consult: 02/27/17 Requested By: Alexei Echevarria MD Reason for Consult: Tachycardia. Source of Information: old records History of Present Illness: Ms. Senait Murphy is 71-year-old female with a history of arthritis, chronic bilateral lower extremity edema presented to the ED on 02/22/2017 with complaints of frequency, urgency, and dysuria, as well as, profound weakness, anorexia and a 10 pound weight loss with laboratory work revealing leukocytosis, UA with packed WBCs/bacteria, positive nitrites and large esterase , etc. and was appropriately treated with volume, antimicrobial therapy, etc. for presumed UTI, but developed worsening abdominal pain with diarrhea (C. difficile negative) and CT abdomen/pelvis 02/24/2017 revealing colonic thickening without free air. On admission she also had a bilateral lower extremity ultrasound, given her edema, that revealed a nonocclusive thrombus in the right proximal femoral vein for which anticoagulation was initiated. An echocardiogram was also performed that revealed preserved left ventricular and right ventricular systolic function , trace tricuspid regurgitation, and an estimated PA systolic pressure 33 mmHg. Blood culture growth of Escherichia coli and Clostridium species prompted a change in her antimicrobial therapy per ID. 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 At present she remains awake, alert, and intubated and denied any chest discomfort or shortness of breath by shaking her head "no" to questioning. Her vasopressin was discontinued earlier and the Levophed is being tapered down. Her pulse presently is 95 bpm and regular and her blood pressure 118/44 mmHg. Allergies/Medications Allergies: Coded Allergies: shrimp (Severe, SEVERE HIVES 12/29/16) Home Med List: No Known Home Medications Review of Systems Review of Systems: Unobtainable, as patient intubated. 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 Psychosocial History Where Do You Live? Home Who Do You Live With? self Services at Home: None Primary Language: Maltese Smoking Status: Never Smoked ETOH Use: occasional use Illicit Drug Use: denies illicit drug use Functional Ability ADLs Independent: dressing, eating, toileting, bathing. Ambulation: cane IADLs Independent: shopping, housework, finances, food prep, telephone, transportation , medication admin. 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 Exam & Diagnostic Data Vital Signs and I&O Vital Signs Date Time Temp Pulse Resp B/P B/P Pulse O2 O2 Flow FiO2 Mean Ox Delivery Rate 02/27 1711 104 118/45 02/27 1630 40 02/27 1600 97.8 104 20 130/50 97 Ventilator 40% 02/27 1546 98 Ventilator 40% 02/27 1427 40 02/27 1200 5 Ventilator 40% 02/27 1001 131 85/42 02/27 0836 40 02/27 0800 100 Ventilator 40% 02/27 0800 97.7 124 26 130/70 100 Ventilator 40% 02/27 0523 40 02/27 0506 110 134/61 02/27 0453 118 134/74 02/27 0400 97 Ventilator 40% 02/27 0249 50 02/27 0000 97.3 98 25 149/73 100 Ventilator 50% 02/27 0000 100 Ventilator 50% 02/26 2342 96 133/68 02/26 2206 50 02/26 2156 153 104/69 02/26 2043 144 66/42 02/26 2029 40 02/26 2000 100 Ventilator 40% Intake & Output 02/27 1600 02/27 0800 02/27 0000 02/26 1600 02/26 0800 02/26 0000 Intake Total 2546 2255 5886 1999 505.7 931 Output Total 276 276 500 630 10 4 Balance 2270 1979 5386 1370 495.7 927 Intake, Blood 350 Product Intake, IV 2546 1905 5886 1999 385.7 451 Intake, Oral 0 0 0 120 480 Intake, Other 0 0 Number 1 1 1 3 2 Bowel Movements Output, Chest 200 Tube Drainage Output, 200 Drainage Output, 10 Emesis Output, 400 600 Gastric Drainage Output, Other 50 Output, Stool 1 1 0 10 4 Output, Urine 75 75 50 20 Patient 164 lb 162 lb Weight Weight Bed scale Measurement Method Physical Exam: Well-developed, well-nourished middle-aged female who is intubated/ sedated. Vital signs: See above. HEENT: Normocephalic, atraumatic, EOMI, moist mucous membranes. Neck: No JVD, no bruits. Lungs: Clear to auscultation anteriorly. Heart: S1, S2 with no murmur, gallop, or rub appreciated. PMI fifth ICS at MCL. Abdomen: Soft and absent bowel sounds. Extremities: 1+ edema. Diagnostic Data EKG Results ECG 02/27/2017 sinus tachycardia, diffuse low voltage, RBBB, and nondiagnostic lateral ST segment depression. CXR Results CXR /2017: 1. Endotracheal tube tip 4.6 cm above the isha. 2. Enteric tube courses into the abdomen with tip not included. 3. Right jugular central venous line tip at the cavoatrial junction. 4. Lung findings are suspicious for pulmonary edema with small bilateral pleural effusions. Assessment/Plan Assessment/Plan [id number] w/ hx OA, ch bilat LE edema presented 02/22/2017 w/ c/o urinary symptoms, profound weakness, anorexia, & 10 lb wt loss w/ labs revealing leukocytosis, UA w/ packed WBCs/bacteria, + nitrites & lg esterase, etc. w/ appropriate mgt (volume, antimicrobial therapy, etc.) for UTI, but developed worsening abd pain w/ diarrhea (C. diff neg) & CT abd/pelvis 02/24/2017 revealing colonic thickening w/o free air, but who became hemodynamically unstable early on 02/26/2017 from septic shock 2/2 perforated diverticulitis that prompted a colectomy and takedown of colovesical fistula that was discovered who has continued to improve throughout the course of the day & and is presently hemodynamically stable (P 95 [reg], BP 118/44, T 97.8 d, R 20 /min) on IV NS at 150 ml/hr and Levophed. The emergent surgery precluded the ability to continue anticoagulation for the nonocclusive thrombus the short-term. Presently, awake, alert, and intubated, denies any cv complaints, has negative troponins, & w/o ECG or echo changes. She is approximately 13 L positive with most recent CXR c/w pulmonary edema. Recommendations: * Continue full supportive ICU care with continued attempts at weaning off pressor and decreasing IV fluids, given CXR findings. Can diurese when BP stabilizes. * Repeat ECG in a.m. * Repeat CXR in a.m. * Replete magnesium and maintain at or above 2.0 mEq/L. * Follow-up BUN/creatinine, LFTs, erc. * Recheck H/H and consider transfusion pRBCs to maintain Hgb 8.0 g/dl. * Repeat troponin, as last level trending upward. * Restart anticoagulation for nonocclusive LE thrombus when cleared by surgery. * Nephrology consultation for SEN following hypotension. * DVT prophylaxis. Further recommendations will follow, Thank you. Consult Acknowledgment - Thank you for your consult request.
--- NOTE | 2017-02-27 18:21 | Cons- Nephrology ---
General Information and HPI Consulting Request Date of Consult: 02/27/17 Requested By: Alexei Echevarria MD Reason for Consult: SEN Source of Information: old records Exam Limitations: unable to give history, clinical condition History of Present Illness: I have been asked to see this 71-year-old woman because of the development of a rising serum creatinine. She was admitted on 02/22/17 with a septic picture and blood cultures growing Escherichia coli and a Clostridium species. On 02/26/17 she underwent an emergency laparotomy with sigmoid colectomy with end colostomy and takedown of a colovesical fistula, left oophorectomy on the basis of a perforated diverticulitis with a colovesical fistula. Her course has been marked by hypotension requiring pressors (she remains on vasopressin) and now with oliguria and a rising serum creatinine from 0.9 on admission to 1.5 today. Serum potassium has not been a problem and serum CO2 level has now essentially normalized at 22 from a low of 9 preoperatively. Lactic acid level peaked at 11.6 and has come down today to 4.3. She is being followed by multiple consultants including pulmonary and ID, remains intubated but awake and alert and is being treated for her infection with Unasyn. Past medical history: See below Medications: See MAR Allergies: Shrimp. No known drug allergies Family history: Mother had an abdominal aortic aneurysm. No known family history of kidney disease. Social history: He had been fully active and employed prior to admission. No history of cigarette smoking alcohol abuse or drug abuse. Allergies/Medications Allergies: Coded Allergies: shrimp (Severe, SEVERE HIVES 12/29/16) Home Med List: No Known Home Medications Review of Systems Review of Systems: Patient is intubated and vented although awake and alert. She is able to deny that she is in any pain or uncomfortable at this time. Systems review prior to admission as noted including a history of chronic lower extremity edema. Review of Systems Constitutional: Reports: see HPI. 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 Psychosocial History Where Do You Live? Home Who Do You Live With? self Services at Home: None Primary Language: Gibraltarian Smoking Status: Never Smoked ETOH Use: occasional use Illicit Drug Use: denies illicit drug use Functional Ability ADLs Independent: dressing, eating, toileting, bathing. Ambulation: cane IADLs Independent: shopping, housework, finances, food prep, telephone, transportation , medication admin. 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 Exam & Diagnostic Data Vital Signs and I&O Vital Signs Date Time Temp Pulse Resp B/P B/P Pulse O2 O2 Flow FiO2 Mean Ox Delivery Rate 02/28 1424 35 02/28 1200 95 T Piece 35% 02/28 1117 35 02/28 0822 35 02/28 0800 07 Ventilator 35% 02/28 0800 98.6 87 21 138/58 97 Ventilator 35% 02/28 0651 35 02/28 0622 86 132/48 02/28 0419 35 02/28 0400 99 Ventilator 35% 02/28 0041 35 02/28 0000 98 Ventilator 35% 02/28 0000 99.2 92 20 112/40 98 Ventilator 35% 02/27 2208 35 02/27 2000 97 Ventilator 40% 02/27 1914 40 02/27 1711 104 118/45 02/27 1630 40 02/27 1600 97.8 104 20 130/50 97 Ventilator 40% 02/27 1546 98 Ventilator 40% Intake & Output 02/28 1600 02/28 0400 02/27 1600 02/27 0400 02/26 1600 02/26 0400 Intake Total 4637 1928 4801 5886 2505.7 931 Output Total 1380 480 552 500 640 4 Balance 3257 1448 4249 5386 1865.7 927 Intake, Blood 1070 350 Product Intake, IV 3567 1928 4451 5886 2385.7 451 Intake, Oral 0 0 0 120 480 Intake, Other 0 0 Number 1 1 4 2 Bowel Movements Output, Chest 200 Tube Drainage Output, 675 190 200 Drainage Output, 10 Emesis Output, 300 400 600 Gastric Drainage Output, Other 50 Output, Stool 80 205 2 0 10 4 Output, Urine 325 85 150 50 20 Patient 200 lb 164 lb 162 lb Weight Weight Bed scale Bed scale Measurement Method Physical Exam: General: Well-developed intubated and vented white female in no acute distress Skin: No rash or jaundice HEENT: Conjunctivae pale, sclerae anicteric, intubated Neck: Without masses, no supraclavicular or cervical adenopathy Chest: Clear anterolaterally Heart: Regular rate and rhythm without S3 or rub Abdomen: Soft, mild diffuse tenderness, MARYELLEN drain in place, left lower quadrant colostomy Extremities: Without cyanosis. 2+ lower extremity edema Neuro: Awake, alert and responsive. No focal findings, no asterixis or myoclonus Assessment/Plan Assessment/Recommendations Assessment: 71-year-old woman with acute kidney injury in the setting of abdominal sepsis and hypotension requiring pressor support. It is difficult to know at this point whether she remains prerenal due to decreased renal perfusion or whether she has established acute tubular necrosis. The presence of edema does not necessarily mean that she does not require intravenous volume expansion especially given the fact that she is known to have chronic lower extremity edema. Recommendations: 1. Diagnostically would send a spot urine for fractional excretion of sodium 2. I would continue vasopressin for now but can taper as long as his systolic pressure remains above 100 3. Trial of 25% albumin 12.5 g IV every 6 hours 4. Would continue IV normal saline for today and reassess tomorrow Thank you. Will follow along with you.
[2017-02-27 22:43] LABS: ABSOLUTE BASOPHIL COUNT 0 /CUMM (0.0-0.2); ABSOLUTE EOSINOPHIL COUNT 0 /CUMM (0.0-0.7); ABSOLUTE GRANULOCYTE CT 23.6 /CUMM (1.4-6.5); ABSOLUTE LYMPH COUNT 0.8 /CUMM (1.2-3.4); ABSOLUTE MONOCYTE COUNT 0.5 /CUMM (0.10-0.60); BASOPHIL % 0 % (0.0-2.0); EOSINOPHIL % 0 % (0-5); MEAN CORPUSCULAR HGB CONC 31.5 G/DL (33.0-37.0); MEAN CORPUSCULAR VOLUME 82.7 FL (81.0-99.0); MEAN PLATELET VOLUME 8.4 FL (7.4-10.4); PLATELET COUNT 202 /CUMM (130-400); RBC DISTRIBUTION WIDTH 17.7 % (11.5-14.5)
[2017-02-27 22:55] LABS: RED BLOOD CELL CT 2.17 /CUMM (4.20-5.40)
[2017-02-27 23:00] LABS: GRANULOCYTE % 94.7 % (42.2-75.2); HEMATOCRIT 17.9 % (37-47)
--- NOTE | 2017-02-27 23:27 | Event Note ---
Event Note Event Note: Patient's H&H @ 10:00 PM dropped to 5.6 from 8.0 this AM. Of note, patient continues to remian on two pressors with BP in the 100's, and is tachycardic. On physical exam she is intuabted, but alert and oriented. Cardiovascular exam , normal S1, S2, no murmers, rubs appreciated. Abdominal exam pertinent for a MARYELLEN drian that is draining bilous fluid, and a colostomy bag in place with ? dsuky appearance of the stoma site. Rectal exam received dina colored stools, which were guaic positive. - Assessment - ABLA 2/2 GI bleed. - Hypotension and ST most likely 2/2 anemia and sepsis - Lactic acidosis - Resolving - Right leg DVT not on AC as she has ABLA. - Plan: - Will transfuse her with 2 units of PRBC (ordred 4 units). - Will order CT ABd/Pelvis to r/o retroperitoneal bleed. - Contacted GI. No intervention at this time. Recommended to tx PRBC at this time. - Hold off AC at his time, consider IVC filter for DVT. - F/U LA @ 2:00 and 5:00 - F/U troponin in AM as it is still tredning up 0.06 - F/U with GS regarding the stoma site.
[2017-02-28] VITALS: BP 112/40; BP 112/401
--- NOTE | 2017-02-28 01:57 | CT SCAN REPORT ---
EXAMINATION: CT ABDOMEN AND PELVIS WITHOUT CONTRAST CLINICAL INFORMATION: Acute blood loss, anemia, rule out retroperitoneal/intraperitoneal bleed COMPARISON: 02/24/2017 TECHNIQUE: Multidetector volumetric imaging was performed from the superior aspect of the liver through the pubic symphysis. Sagittal and coronal reformatted images were obtained on the technologist's workstation. DLP: 567.01 mGy-cm FINDINGS: LUNG BASES: There is partial visualization of bilateral mdqxd-ya-giynehvy pleural effusions and underlying atelectasis. LIVER, GALLBLADDER, AND BILIARY TREE: The liver is grossly unremarkable, suboptimally assessed in the absence of intravenous contrast. There is layering hyperdensity in the gallbladder which may reflect vicarious excretion of prior IV contrast material. PANCREAS: Unremarkable. SPLEEN: Unremarkable. ADRENAL GLANDS: Unremarkable. KIDNEYS AND URETERS: Faint bilateral nephrograms are visible on this noncontrast exam, suggesting a degree of renal dysfunction. Bilateral renal cysts are again demonstrated, largest on the right measuring approximately 10 cm in diameter. Left peripelvic cysts are suspected. A tiny right renal calculus is noted. BLADDER: Decompressed with a Pete catheter and not adequately evaluated GASTROINTESTINAL TRACT: There are new postsurgical changes in the abdomen compared to 02/24/2017. Patient appears to be status post partial colectomy with a left lower quadrant colostomy. No convincing evidence for bowel obstruction. There is mural prominence of the descending colon which could represent a colitis. Oral contrast material is present within some loops of small bowel in the abdomen. There is mural prominence of some small bowel loops throughout the abdomen. A surgical drain is present in the lower abdomen. There is stranding throughout the mesentery. A small volume of low-density free fluid is present in the abdomen/pelvis. No convincing evidence for significant intra-abdominal hematoma. Small foci of pneumoperitoneum are consistent with recent abdominal surgery. ABDOMINAL WALL: There are postsurgical changes in the abdominal wall. Left-sided colostomy is noted. Diffuse anasarca is present. LYMPH NODES: Evaluation for lymphadenopathy is significantly limited in the setting of mesenteric edema and lack of intravenous contrast. VASCULAR: There is atherosclerotic calcification along the aorta. PELVIC VISCERA: Grossly unremarkable. OSSEOUS STRUCTURES: There are severe degenerative changes of the bilateral hips. Degenerative changes are noted in the spine. IMPRESSION: 1. Postsurgical changes in the abdomen from recent partial colectomy. Stranding throughout the mesentery may reflect postoperative edema. Small amount of low-density free fluid. No convincing evidence for significant intra-abdominal hematoma. 2. Mural prominence of some segments of small and large bowel, including the descending colon. This could be reactive inflammation in the setting of recent surgery or could be infectious in etiology. 3. Partial visualization of bilateral vkxpt-lh-dahtluyn pleural effusions and adjacent atelectasis. 4. Faint residual bilateral nephrograms on this noncontrast exam, suggesting renal dysfunction.
[2017-02-28 04:49] LABS: ABSOLUTE BASOPHIL COUNT 0 /CUMM (0.0-0.2); ABSOLUTE EOSINOPHIL COUNT 0 /CUMM (0.0-0.7); ABSOLUTE GRANULOCYTE CT 29.4 /CUMM (1.4-6.5); ABSOLUTE LYMPH COUNT 0.8 /CUMM (1.2-3.4); BASOPHIL % 0 % (0.0-2.0); EOSINOPHIL % 0 % (0-5)
[2017-02-28 05:04] LABS: ABSOLUTE MONOCYTE COUNT 0.5 /CUMM (0.10-0.60); GRANULOCYTE % 95.7 % (42.2-75.2); MEAN CORPUSCULAR HGB 27.8 PG (27.0-31.0); MEAN CORPUSCULAR HGB CONC 32.9 G/DL (33.0-37.0); MEAN CORPUSCULAR VOLUME 84.5 FL (81.0-99.0); MEAN PLATELET VOLUME 8.8 FL (7.4-10.4); PLATELET COUNT 176 /CUMM (130-400); RBC DISTRIBUTION WIDTH 15.7 % (11.5-14.5)
[2017-02-28 05:12] LABS: HEMATOCRIT 23.9 % (37-47); RED BLOOD CELL CT 2.83 /CUMM (4.20-5.40); WHITE BLOOD CELL COUNT 30.7 /CUMM (4.8-10.8)
--- NOTE | 2017-02-28 05:46 | PN- Resident CRCU ---
Kellen Pop 02/28/17 0544: Subjective HPI/CRCU Issues: Ms Murphy was comfortable this am. No new issues. She was cheerful, and did not have any chest pain, shortness of breath, palpitations. No abdominal pain. Issues: 1. Septic shock 2. Colonic perforation with peritonitis status post colectomy with end to end colostomy, colovesical fistula 3. Metabolic acidosis secondary to septic shock 4. Acute kidney injury likely secondary to ATN 5. Lactic acidosis secondary to septic shock 6. Anemia ? Acute blood loss 7. Urine culture growing Escherichia coli. 24 Hour Events: Tm 99.2 Heart rate in the range of 82-140 Normal sinus rhythm Blood pressure-systolic 106-146, diastolic 42-58. Ventilator settings-Vol AC, TV 500, FiO2 35, PEEP of 5, PIP 21, Plat pressure- 16. Objective Vital Signs & I&O Last 8 Hrs of Vitals and I&O: Intake & Output 02/28 1600 Intake Total Output Total Balance Patient 200 lb Weight Weight Bed scale Measurement Method Exam General Appearance: no apparent distress Other Physical Findings: General Appearance: no apparent distress, awake, intubated, obese Head: atraumatic, normal appearance Ears, Nose, Throat: normal pharynx, normal ENT inspection, hearing grossly normal Neck: normal inspection, supple, limited range of motion Respiratory: normal breath sounds, rhonchi Cardiovascular: regular rate/rhythm, edema Gastrointestinal: normal bowel sounds, soft, non-tender Extremities: normal inspection, normal capillary refill, normal range of motion, no edema Cranial Nerves: normal hearing, normal speech, PERRL Skin: normal color, warm/dry, colostomy bag in place Skin Temp/Moisture Exam: Warm/Dry Sepsis Skin Exam (color): Normal for Ethnicity Back: could not be examined Sepsis Peripheral Pulse Location: Dorsalis Pedis Sepsis Peripheral Pulse Exam: Weak Sepsis Cap Refill Exam: <2 Sec Central Line Site: Right IJ Arterial Site: Right arterial Current Medications: Current Medications Sig/Jacobo Start time Last Medication Dose Route Stop Time Status Admin Acetaminophen 1,000 MG .STK-MED ONE 02/28 1946 DC IV 02/28 1947 Acetaminophen 1,000 MG Q12P PRN 02/24 0845 AC 02/28 N/A 1 UNIT IV 1954 Albumin Human 12.5 GM Q6 02/27 1806 AC 03/01 IV 0030 Ampicillin Sodium/ 3,000 MG Q6 02/26 1200 AC 03/01 Sulbactam Sodium IV 0023 Sodium Chloride 100 ML Fluconazole 400 MG Q48 03/02 1000 AC Sodium Chloride 200 ML IV Fluconazole 400 MG Q2H 02/28 1200 DC Sodium Chloride 200 ML IV Fluconazole 400 MG ONCE ONE 02/28 1200 CAN Sodium Chloride 200 ML IV 02/28 1359 Fluconazole 400 MG Q2H 02/28 1200 DC 02/28 Sodium Chloride 200 ML IV 02/28 1559 1615 Fluconazole 800 MG ONCE ONE 02/28 1145 CAN IV 02/28 1146 Furosemide 20 MG ONCE ONE 02/28 2145 DC 02/28 IV 02/28 2146 2153 Furosemide 20 MG ONCE ONE 02/28 1500 DC 02/28 IV 02/28 1501 1504 Norepinephrine 4 MG Q4H 02/27 1000 DC 02/27 Dextrose/Water 250 ML IV 1518 Pantoprazole Sodium 40 MG DAILY 02/26 2039 AC 02/28 IV 0954 Potassium Chloride 20 MEQ Q1H 02/28 2145 DC 03/01 IV 02/28 2246 0025 Sodium Chloride 1,000 ML BOLUS ONE 02/28 2015 DC 02/28 IV 02/28 2214 2044 Sodium Chloride 1,000 ML BOLUS ONE 02/28 0745 DC 02/28 IV 02/28 0944 0835 Sodium Chloride 1,000 ML Q6H 02/27 0615 DC 02/28 IV 0622 Vasopressin 40 UNITS Q16H 02/27 1130 DC 02/27 Sodium Chloride 100 ML IV 1135 Impression/Plan Impression/Problem List Impression: Ms Murphy is a 71-year-old woman with PMHx of arthritis, chronic b/l lower extremity edema presented to [place] [facility] on 02/22 with complaints of burning during urination and increased frequency and urgency, along with extreme weakness anorexia, and a 10 pound weight loss. She was initially being managed for sepsis of urological origin and a right leg DVT. She subsequently developed diarrhea, abdominal pain, hypotension and tachypnea requiring ICU admission. Chest X-ray shows air under the diaphragm and coupled with the findings of her earlier CT abdomen showing colonic thickening and her feculent urine, there is concern for colonic perforation. She is being evaluated by General Surgery for emergent exploratory laparotomy. Plan 1. 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 * currently on unasyn. * monitor vitals closely. 2. Sepsis and hypotension * keep MAP >65 mmhg * Hold vasopressin and levo. * Monitor urine output and fluid input output; she is currently in positive fluid balance and would benefit from a dose of furosemide. Sr cr 1.5 * Trend lactate, improving now. * Continue unasyn, and add fluconazole corrected to renal dosing. * White count worsening likely from peritonitis. 3. Metabolic acidosis * Patient has lactic acidosis from sepsis * Received bicarbonate pushes. pH improved. * Recheck ABG in the am. 4. Right leg DVT * IV heparin has been discontinued in anticipation of surgery * Will discuss with vascular surgery about puting an IVC filter post op after patient is stabilized * IN the meantime continue DVT prophylaxis with ALPS * Restart heparin AC in the am 5. Anemia * Likely GI bleed. CT abdmomen did not reveal any intra-abdominal bleeding. * Check CBC post transfusion. Housekeepin. DVT prophylaxis: ALPS 2. Ventilation management: Wean trial today. Problem List: 1. Colitis 2. Acute cystitis 3. Lactic acid acidosis 4. Leukocytosis 5. Sepsis Pain Ratin Tomorrow's Labs & Rationales: cbc icu bundle. Isac ROTH,NylaCb Sadlera 02/28/17 7747: Impression/Plan Plan DVT/Prophylaxis: mechanical, pharmacological Attending MD Review Statement Attending Sign Off Attending Cosign Statement: I have: examined this patient, [facility] data, personally reviewd images, discussd w/resident/PA/MEDICAL SALES REPRESENTATIVE, discussed mgmt plan w/wayne, agreed w/resident/ PA/MEDICAL SALES REPRESENTATIVE. Reason for Cont Hospitalizatn: CRCU management, continues mechanical ventilation.
--- NOTE | 2017-02-28 06:42 | PN- General Surgery ---
Subjective Subjective: Awake, alert on the vent Off pressor support - only IVF Responds approprliately to all questions Denies any pain - wants to get the tube out of her throat Objective Vital Signs and I&Os Vital Signs Date Time Temp Pulse Resp B/P B/P Pulse O2 O2 Flow FiO2 Mean Ox Delivery Rate 02/28 06 86 132/48 02/28 0419 35 02/28 0400 99 Ventilator 35% 02/28 0041 35 02/28 0000 98 Ventilator 35% 02/28 0000 99.2 92 20 112/40 98 Ventilator 35% 02/27 2208 35 02/27 2000 97 Ventilator 40% 02/27 1914 40 02/27 1711 104 118/45 02/27 1630 40 02/27 1600 97.8 104 20 130/50 97 Ventilator 40% 02/27 1546 98 Ventilator 40% 02/27 1427 40 02/27 1200 5 Ventilator 40% 02/27 1001 131 85/42 02/27 0836 40 02/27 0800 100 Ventilator 40% 02/27 0800 97.7 124 26 130/70 100 Ventilator 40% Intake & Output 02/28 0800 02/28 0000 02/27 1600 02/27 0800 02/27 0000 02/26 1600 Intake Total 1928 2546 2255 5886 2000 Output Total 480 276 276 500 630 Balance 1448 2270 1979 5386 1370 Intake, Blood 350 Product Intake, IV 1928 2546 1905 5886 1999 Intake, Oral 0 0 0 Intake, Other 0 0 Number 1 1 1 Bowel Movements Output, Chest 200 Tube Drainage Output, 190 200 Drainage Output, 400 600 Gastric Drainage Output, Other 50 Output, Stool 205 1 1 0 10 Output, Urine 85 75 75 50 20 Physical Exam: Tmax 99.2, all other vss General: vented, awake, alert Chest: clear anteriorly without rales/wheezes/rhonchi, RRR Abd: soft, nondistended, no bowel sounds appreciated, Ostomy: dark but not dusky, soft - liquid in bag - no air midline incision looks good - mt intact without erythema or drainage Iglesias: 200cc overnight shift Current Medications: Current Medications Sig/Jacobo Start time Last Medication Dose Route Stop Time Status Admin Acetaminophen 1,000 MG Q12P PRN 02/24 0845 AC N/A 1 UNIT IV Albumin Human 12.5 GM Q6 02/27 1806 AC 02/28 IV 0621 Ampicillin Sodium/ 3,000 MG Q6 02/26 1200 AC 02/28 Sulbactam Sodium IV 0621 Sodium Chloride 100 ML Morphine Sulfate 2 MG ONCE ONE 02/28 0115 DC 02/28 IV 02/28 0116 0115 Morphine Sulfate 2 MG ONCE ONE 02/27 0915 DC 02/27 IV 02/27 0916 0938 Norepinephrine 4 MG Q4H 02/27 1000 02/27 Dextrose/Water 250 ML IV 1518 Norepinephrine 4 MG Q4H 02/27 0045 DC 02/27 Dextrose/Water 250 ML IV 0506 Pantoprazole Sodium 40 MG DAILY 02/26 203 02/27 IV 1021 Phenylephrine HCl 40 MG Q16H 02/27 1250 DC Dextrose/Water 250 ML IV Sodium Chloride 1,000 ML BOLUS ONE 02/28 2044 DC 02/27 IV 02/27 2244 2036 Sodium Chloride 1,000 ML BOLUS ONE 02/27 1200 DC 02/27 IV 02/27 1359 1226 Sodium Chloride 1,000 ML BOLUS ONE 02/27 0945 CO 02/27 IV 02/27 1144 0940 Sodium Chloride 1,000 ML Q6H 02/27 0615 02/28 IV 0622 Vasopressin 40 UNITS Q16H 02/27 1130 02/27 Sodium Chloride 100 ML IV 1135 Vasopressin 40 UNITS Q16H 02/27 2044 CO 02/26 Sodium Chloride 100 ML IV 2041 Results Last 48 Hours of Labs: Laboratory Tests 02/28 02/28 02/28 0425 0425 0145 Chemistry Sodium (137 - 145 mmol/L) 143 Potassium (3.5 - 5.1 mmol/L) 3.8 Chloride (98 - 107 mmol/L) 109 H Carbon Dioxide (22 - 30 mmol/L) 22 Anion Gap (5 - 16) 12 BUN (7 - 17 mg/dL) 51 H Creatinine (0.5 - 1.0 mg/dL) 1.6 H Estimated GFR (>60 ml/min) 32 L Glucose (65 - 99 mg/dL) 120 H Lactic Acid (0.7 - 2.1 mmol/L) 2.4 H 2.8 H Calcium (8.4 - 10.2 mg/dL) 6.5 L Phosphorus (2.5 - 4.5 mg/dL) 3.2 Magnesium (1.6 - 2.3 mg/dL) 1.8 Total Bilirubin (0.2 - 1.3 mg/dL) 1.7 H AST (14 - 36 U/L) 94 H ALT (9 - 52 U/L) 104 H Troponin I (< 0.11 ng/ml) 0.05 Albumin (3.5 - 5.0 g/dL) 1.5 L Hematology CBC w Diff MAN DIFF ORDERED WBC (4.8 - 10.8 /CUMM) 30.7 *H RBC (4.20 - 5.40 /CUMM) 2.83 L Hgb (12.0 - 16.0 G/DL) 7.9 L Hct (37 - 47 %) 23.9 L MCV (81.0 - 99.0 FL) 84.5 MCH (27.0 - 31.0 PG) 27.8 RDW (11.5 - 14.5 %) 15.7 H Plt Count (130 - 400 /CUMM) 176 MPV (7.4 - 10.4 FL) 8.8 Gran % (42.2 - 75.2 %) 95.7 H Lymphocytes % (20.5 - 51.1 %) 2.8 L Monocytes % (1.7 - 9.3 %) 1.5 L Eosinophils % (0 - 5 %) 0 Basophils % (0.0 - 2.0 %) 0 Absolute Granulocytes (1.4 - 6.5 /CUMM) 29.4 H Segmented Neutrophils (42.2 - 75.2 %) 96 H Band Neutrophils (0.0 - 5.0 %) 3 Absolute Lymphocytes (1.2 - 3.4 /CUMM) 0.8 L Monocytes (1.7 - 9.3 %) 1 L Absolute Monocytes (0.10 - 0.60 /CUMM) 0.5 Absolute Eosinophils (0.0 - 0.7 /CUMM) 0 Absolute Basophils (0.0 - 0.2 /CUMM) 0 Platelet Estimate (ADEQUATE) ADEQUATE Hypochromic-Microcytic 1+ Poikilocytosis 1+ PUBS MCHC (33.0 - 37.0 G/DL) 32.9 L 02/27 02/27 02/27 2230 1935 1830 Chemistry Sodium (137 - 145 mmol/L) 142 Potassium (3.5 - 5.1 mmol/L) 3.9 Chloride (98 - 107 mmol/L) 111 H Carbon Dioxide (22 - 30 mmol/L) 22 Anion Gap (5 - 16) 9 BUN (7 - 17 mg/dL) 49 H Creatinine (0.5 - 1.0 mg/dL) 1.7 H Estimated GFR (>60 ml/min) 30 L Glucose (65 - 99 mg/dL) 161 H Lactic Acid (0.7 - 2.1 mmol/L) 2.2 H 2.9 H Calcium (8.4 - 10.2 mg/dL) 6.3 L Phosphorus (2.5 - 4.5 mg/dL) 3.4 Magnesium (1.6 - 2.3 mg/dL) 1.8 Iron (37 - 170 ug/dL) 35 L TIBC (265 - 497 ug/dL) 102 L Ferritin (11.1 - 264 ng/mL) 957.0 H Total Bilirubin (0.2 - 1.3 mg/dL) 0.6 AST (14 - 36 U/L) 110 H ALT (9 - 52 U/L) 115 H Troponin I (< 0.11 ng/ml) 0.06 Albumin (3.5 - 5.0 g/dL) 1.3 L Hematology CBC w Diff MAN DIFF ORDERED WBC (4.8 - 10.8 /CUMM) 25.0 H RBC (4.20 - 5.40 /CUMM) 2.17 L Hgb (12.0 - 16.0 G/DL) 5.6 *L Hct (37 - 47 %) 17.9 *L MCV (81.0 - 99.0 FL) 82.7 MCH (27.0 - 31.0 PG) 26.0 L RDW (11.5 - 14.5 %) 17.7 H Plt Count (130 - 400 /CUMM) 202 MPV (7.4 - 10.4 FL) 8.4 Gran % (42.2 - 75.2 %) 94.7 H Lymphocytes % (20.5 - 51.1 %) 3.3 L Monocytes % (1.7 - 9.3 %) 2.0 Eosinophils % (0 - 5 %) 0 Basophils % (0.0 - 2.0 %) 0 Absolute Granulocytes (1.4 - 6.5 /CUMM) 23.6 H Segmented Neutrophils (42.2 - 75.2 %) 95 H Band Neutrophils (0.0 - 5.0 %) 2 Absolute Lymphocytes (1.2 - 3.4 /CUMM) 0.8 L Lymphocytes (20.5 - 51.1 %) 3 L Absolute Monocytes (0.10 - 0.60 /CUMM) 0.5 Absolute Eosinophils (0.0 - 0.7 /CUMM) 0 Absolute Basophils (0.0 - 0.2 /CUMM) 0 Platelet Estimate (ADEQUATE) VERIFIED BY SMEAR Normochromic RBCs VERIFIED Anisocytosis 1+ PUBS MCHC (33.0 - 37.0 G/DL) 31.5 L Other Body Source Fld Total RBCs Counted (%) 100 Urines Ur Random Creatinine (mg/dL) 49.5 Ur Random Sodium (30 - 90 mmol/L) 36 Ur Random Potassium (mmol/L) 45.8 Fraction Sodium Excret (<1% %) 0.8 02/27 02/27 02/27 02/27 02/27 1505 1320 0620 0500 0410 Blood Gas pH (7.35 - 7.45 PH) 7.50 H pCO2 (35 - 45 TORR) 23 L pO2 (80 - 100 TORR) 94 HCO3 (21 - 28 MEQ/L) 17 L ABG O2 Sat (Measured) (>96.0 %) 96.0 Carboxyhemoglobin (1.5 - 5.0 %) 1.1 L O2 Concentration % 40 Respiration Rate (BPM) 20 O2 Delivery Method VENT Vent Mode AC Expiratory Pressure (CMH2O/P) 5 Tidal Volume (CC) 500 Chemistry Sodium Cancelled Potassium Cancelled Chloride Cancelled Carbon Dioxide Cancelled Anion Gap Cancelled BUN Cancelled Creatinine Cancelled Glucose Cancelled Lactic Acid (0.7 - 2.1 mmol/L) 4.3 H 5.2 H 6.5 H Calcium Cancelled Phosphorus Cancelled Magnesium Cancelled Total Bilirubin Cancelled AST Cancelled ALT Cancelled Albumin Cancelled Miscellaneous Phlebotomy Draw Site [place] 02/27 02/27 02/27 0410 0311 0245 Blood Gas pH (7.35 - 7.45 PH) 7.44 pCO2 (35 - 45 TORR) 23 L pO2 (80 - 100 TORR) 122 H HCO3 (21 - 28 MEQ/L) 15 L ABG O2 Sat (Measured) (>96.0 %) 97.0 Carboxyhemoglobin (1.5 - 5.0 %) 0.9 L O2 Concentration % 50 Respiration Rate (BPM) 26 O2 Delivery Method VENT Vent Mode AC Expiratory Pressure (CMH2O/P) 5 Tidal Volume (CC) 500 Chemistry Sodium (137 - 145 mmol/L) 140 Potassium (3.5 - 5.1 mmol/L) 4.6 Chloride (98 - 107 mmol/L) 107 Carbon Dioxide (22 - 30 mmol/L) 18 L Anion Gap (5 - 16) 15 BUN (7 - 17 mg/dL) 41 H Creatinine (0.5 - 1.0 mg/dL) 1.5 H Estimated GFR (>60 ml/min) 34 L Glucose (65 - 99 mg/dL) 208 H Calcium (8.4 - 10.2 mg/dL) 6.5 L Phosphorus (2.5 - 4.5 mg/dL) 4.7 H Magnesium (1.6 - 2.3 mg/dL) 1.7 Total Bilirubin (0.2 - 1.3 mg/dL) 1.2 AST (14 - 36 U/L) 382 H ALT (9 - 52 U/L) 172 H Troponin I (< 0.11 ng/ml) 0.05 Albumin (3.5 - 5.0 g/dL) 1.5 L Hematology CBC w Diff MAN DIFF ORDERED Cancelled WBC (4.8 - 10.8 /CUMM) 27.4 H Cancelled RBC (4.20 - 5.40 /CUMM) 2.98 L Cancelled Hgb (12.0 - 16.0 G/DL) 8.0 L Cancelled Hct (37 - 47 %) 24.8 L Cancelled MCV (81.0 - 99.0 FL) 83.1 Cancelled MCH (27.0 - 31.0 PG) 26.7 L Cancelled RDW (11.5 - 14.5 %) 18.4 H Cancelled Plt Count (130 - 400 /CUMM) 315 Cancelled MPV (7.4 - 10.4 FL) 8.9 Cancelled Gran % (42.2 - 75.2 %) 93.9 H Lymphocytes % (20.5 - 51.1 %) 3.4 L Monocytes % (1.7 - 9.3 %) 2.1 Eosinophils % (0 - 5 %) 0.6 Basophils % (0.0 - 2.0 %) 0 Absolute Granulocytes (1.4 - 6.5 /CUMM) 25.7 H Segmented Neutrophils (42.2 - 75.2 %) 86 H Band Neutrophils (0.0 - 5.0 %) 9 H Absolute Lymphocytes (1.2 - 3.4 /CUMM) 0.9 L Lymphocytes (20.5 - 51.1 %) 3 L Monocytes (1.7 - 9.3 %) 2 Absolute Monocytes (0.10 - 0.60 /CUMM) 0.6 Absolute Eosinophils (0.0 - 0.7 /CUMM) 0.2 Absolute Basophils (0.0 - 0.2 /CUMM) 0 Platelet Estimate (ADEQUATE) ADEQUATE Hypochromic-Microcytic 2+ Anisocytosis 1+ Target Cells 1+ Stomatocytes 1+ [place] Cells 1+ Elliptocytes 1+ PUBS MCHC (33.0 - 37.0 G/DL) 32.2 L Cancelled Miscellaneous Phlebotomy Draw Site [place] 02/27 02/26 02/26 02/26 0045 2310 2135 2125 Blood Gas pH (7.35 - 7.45 PH) 7.39 7.19 *L pCO2 (35 - 45 TORR) 25 L 28 L pO2 (80 - 100 TORR) 139 H 90 HCO3 (21 - 28 MEQ/L) 15 L 11 L ABG O2 Sat (Measured) (>96.0 %) 98.0 92.0 L P-50 (Temp Corrected) Y Y Carboxyhemoglobin (1.5 - 5.0 %) 0.8 L 0.3 L O2 Concentration % 50% 50% Temperature (97.0 - 100.0 FARH) 97.7 97.2 Respiration Rate (BPM) 26 20 O2 Delivery Method VENT VENT Vent Mode CMV CMV Expiratory Pressure (CMH2O/P) 5 5 Tidal Volume (CC) 500 500 Chemistry Lactic Acid (0.7 - 2.1 mmol/L) 7.7 H 10.3 H Miscellaneous Phlebotomy Draw Site [facility] 02/26 02/26 2125 1905 Blood Gas pH (7.35 - 7.45 PH) 7.07 *L pCO2 (35 - 45 TORR) 42 pO2 (80 - 100 TORR) 355 H HCO3 (21 - 28 MEQ/L) 12 L ABG O2 Sat (Measured) (>96.0 %) 98.0 P-50 (Temp Corrected) Y Carboxyhemoglobin (1.5 - 5.0 %) 1.7 O2 Concentration % 100 Temperature (97.0 - 100.0 FARH) 95.8 L Respiration Rate (BPM) 12 O2 Delivery Method VENT Vent Mode AC Expiratory Pressure (CMH2O/P) 5 Tidal Volume (CC) 400 Chemistry Sodium (137 - 145 mmol/L) 142 Potassium (3.5 - 5.1 mmol/L) 4.8 Chloride (98 - 107 mmol/L) 110 H Carbon Dioxide (22 - 30 mmol/L) 12 L Anion Gap (5 - 16) 19 H BUN (7 - 17 mg/dL) 38 H Creatinine (0.5 - 1.0 mg/dL) 1.5 H Estimated GFR (>60 ml/min) 34 L Glucose (65 - 99 mg/dL) 47 *L Calcium (8.4 - 10.2 mg/dL) 7.1 L Phosphorus (2.5 - 4.5 mg/dL) 6.3 H Magnesium (1.6 - 2.3 mg/dL) 2.0 Total Bilirubin (0.2 - 1.3 mg/dL) 0.7 AST (14 - 36 U/L) 343 H ALT (9 - 52 U/L) 138 H Troponin I (< 0.11 ng/ml) 0.04 Albumin (3.5 - 5.0 g/dL) 1.6 L Coagulation APTT (25 - 37 SEC) 52 H Hematology CBC w Diff MAN DIFF ORDERED WBC (4.8 - 10.8 /CUMM) 35.7 *H RBC (4.20 - 5.40 /CUMM) 2.60 L Hgb (12.0 - 16.0 G/DL) 6.6 *L Hct (37 - 47 %) 21.4 L MCV (81.0 - 99.0 FL) 82.3 MCH (27.0 - 31.0 PG) 25.2 L RDW (11.5 - 14.5 %) 18.1 H Plt Count (130 - 400 /CUMM) 348 MPV (7.4 - 10.4 FL) 8.5 Gran % (42.2 - 75.2 %) 97.5 H Lymphocytes % (20.5 - 51.1 %) 2.1 L Monocytes % (1.7 - 9.3 %) 0.4 L Eosinophils % (0 - 5 %) 0 Basophils % (0.0 - 2.0 %) 0 Absolute Granulocytes (1.4 - 6.5 /CUMM) 34.8 H Segmented Neutrophils (42.2 - 75.2 %) 71 Band Neutrophils (0.0 - 5.0 %) 23 H Absolute Lymphocytes (1.2 - 3.4 /CUMM) 0.7 L Lymphocytes (20.5 - 51.1 %) 3 L Monocytes (1.7 - 9.3 %) 1 L Absolute Monocytes (0.10 - 0.60 /CUMM) 0.1 Absolute Eosinophils (0.0 - 0.7 /CUMM) 0 Absolute Basophils (0.0 - 0.2 /CUMM) 0 Metamyelocytes (0.0 - 1.0 %) 2 H Platelet Estimate (ADEQUATE) ADEQUATE Polychromasia 2+ Hypochromic-Microcytic 3+ Anisocytosis 1+ PUBS MCHC (33.0 - 37.0 G/DL) 30.6 L Miscellaneous Phlebotomy Draw Site RIGHT RADIAL 02/26 02/26 02/26 1657 1305 1242 Blood Gas pH (7.35 - 7.45 PH) 7.28 *L pCO2 (35 - 45 TORR) 11 L pO2 (80 - 100 TORR) 349 H HCO3 (21 - 28 MEQ/L) 5 L ABG O2 Sat (Measured) (>96.0 %) 99.0 P-50 (Temp Corrected) N Carboxyhemoglobin (1.5 - 5.0 %) 0.2 L O2 Concentration % 100% Respiration Rate (BPM) 24 O2 Delivery Method BIPAP Vent Mode ST Expiratory Pressure (CM H2O P) 6 Inspiratory Pressure (CM H2O P) 14 Chemistry Lactic Acid (0.7 - 2.1 mmol/L) 9.5 H 11.6 H Miscellaneous Phlebotomy Draw Site LEFT RADIAL 02/26 02/26 1242 1128 Chemistry Sodium (137 - 145 mmol/L) 139 Potassium (3.5 - 5.1 mmol/L) 4.5 Chloride (98 - 107 mmol/L) 105 Carbon Dioxide (22 - 30 mmol/L) 9 *L Anion Gap (5 - 16) 25 H BUN (7 - 17 mg/dL) 41 H Creatinine (0.5 - 1.0 mg/dL) 1.3 H Estimated GFR (>60 ml/min) 40 L BUN/Creatinine Ratio (7 - 25 %) 31.5 H Troponin I (< 0.11 ng/ml) < 0.01 Coagulation APTT (25 - 37 SEC) 93 H Hematology CBC w Diff NO MAN DIFF REQ WBC (4.8 - 10.8 /CUMM) 24.0 H RBC (4.20 - 5.40 /CUMM) 4.05 L Hgb (12.0 - 16.0 G/DL) 10.1 L Hct (37 - 47 %) 33.3 L MCV (81.0 - 99.0 FL) 82.4 MCH (27.0 - 31.0 PG) 24.9 L RDW (11.5 - 14.5 %) 17.8 H Plt Count (130 - 400 /CUMM) 452 H MPV (7.4 - 10.4 FL) 8.4 Gran % (42.2 - 75.2 %) 95.1 H Lymphocytes % (20.5 - 51.1 %) 2.6 L Monocytes % (1.7 - 9.3 %) 2.2 Eosinophils % (0 - 5 %) 0 Basophils % (0.0 - 2.0 %) 0.1 Absolute Granulocytes (1.4 - 6.5 /CUMM) 22.8 H Absolute Lymphocytes (1.2 - 3.4 /CUMM) 0.6 L Absolute Monocytes (0.10 - 0.60 /CUMM) 0.5 Absolute Eosinophils (0.0 - 0.7 /CUMM) 0 Absolute Basophils (0.0 - 0.2 /CUMM) 0 PUBS MCHC (33.0 - 37.0 G/DL) 30.2 L Assessment/Plan Assessment/Plan 71yo female s/p perf sig/colovesical fistula s/p hartmanns currently stable on the vent keep iglesias due to fistula await bowel function wbc increased to 30- abx per primary team vent per pulmonary/critical care ?restart anticoagulation ppx - will discuss with Dr Jacobs Core Measures Venous Thromboembolism VTE Risk Factors Age>40 No Mechanical VTE Prophylaxis d/t N/A MechProphylax Ordered No VTE Pharm Prophylaxis d/t NA PharmProphylax ordered
[2017-02-28 08:00] VITALS: BP 138/58
--- NOTE | 2017-02-28 08:42 | RADIOLOGY REPORT ---
EXAMINATION: XR PORTABLE CHEST CLINICAL INFORMATION: Status post intubation. Evaluation for pulmonary edema requested. COMPARISON: Chest x-ray and CT abdomen pelvis 02/27/2017 TECHNIQUE: Portable frontal view of the chest was obtained. FINDINGS: Stable cardiac silhouette. Overlying EKG leads make evaluation of support lines difficult, however, the endotracheal tube appears stable in position. The enteric tube terminates below the level of the diaphragm. A right-sided jugular catheter terminates within the SVC. Low lung volumes. Bilateral pleural effusions with overlying airspace disease. Subtle perihilar fullness suggesting mild pulmonary edema, likely mildly improved. IMPRESSION: Bilateral pleural effusions with overlying airspace disease. Minimal pulmonary edema, likely slightly improved.
--- NOTE | 2017-02-28 10:54 | PN- General Surgery ---
Surgical Brief Attending Note Brief Attending Note: Patient recovering well after severe sepsis. Now off pressors. Renal function returned. For future reference, please call surgeon, not GI for acute blood loss anemia in the postoperative major abdominal surgery setting. Would wait for H/H to stabilize prior to re-institution of anticoagulation for DVT.
--- NOTE | 2017-02-28 11:02 | PN- Infect Dx ---
Subjective Subjective: Afebrile. She does not offer any complaints. Her blood pressure is improved, now off pressors. She was transfused 3 units of blood yesterday because of a drop in her H&H. Objective Last 24 Hrs of Vital Signs/I&O Vital Signs Date Time Temp Pulse Resp B/P B/P Pulse O2 O2 Flow FiO2 Mean Ox Delivery Rate 02/28 821 35 02/28 0800 07 Ventilator 35% 02/28 08 98.6 87 21 138/58 97 Ventilator 35% 02/28 0651 35 02/28 0622 86 132/48 02/28 0419 35 02/28 0400 99 Ventilator 35% 02/28 0041 35 02/28 0000 98 Ventilator 35% 02/28 0000 99.2 92 20 112/40 98 Ventilator 35% 02/27 2208 35 02/27 2000 97 Ventilator 40% 02/27 1914 40 02/27 1711 104 118/45 02/27 1630 40 02/27 1600 97.8 104 20 130/50 97 Ventilator 40% 02/27 1546 98 Ventilator 40% 02/27 1427 40 02/27 1200 5 Ventilator 40% Intake & Output 02/28 1600 02/28 0800 02/28 0000 Intake Total 2182 1928 Output Total 480 480 Balance 1702 1448 Intake, Blood 770 Product Intake, IV 1412 1928 Intake, Oral 0 Output, 200 190 Drainage Output, 0 Gastric Drainage Output, Stool 80 205 Output, Urine 200 85 Patient 200 lb Weight Weight Bed scale Measurement Method Physical Exam Other Physical Findings: She is awake and alert on the ventilator in no acute distress HEENT NG tube in place, with dark fluid Neck right IJ triple-lumen catheter with no inflammation at the site Lungs are clear Heart regular rhythm with no murmur Abdomen is distended, tender on palpation, with positive bowel sounds; colostomy with a small amount of liquid in the bag; MARYELLEN drain in place with 390 mL output yesterday and 200 mL overnight Extremities 2+ edema both lower extremities Pete catheter remains in place Results Last 24 Hours of Lab Results: Laboratory Tests 02/28 02/28 02/28 0700 0425 0425 Blood Gas pH (7.35 - 7.45 PH) 7.52 H pCO2 (35 - 45 TORR) 27 L pO2 (80 - 100 TORR) 90 HCO3 (21 - 28 MEQ/L) 21 ABG O2 Sat (Measured) (>96.0 %) 96.0 P-50 (Temp Corrected) N Carboxyhemoglobin (1.5 - 5.0 %) 0.4 L O2 Concentration % .35 Respiration Rate (BPM) 20 O2 Delivery Method VENT Vent Mode A/C Expiratory Pressure (CMH2O/P) 5 Tidal Volume (CC) 500 Chemistry Sodium (137 - 145 mmol/L) 143 Potassium (3.5 - 5.1 mmol/L) 3.8 Chloride (98 - 107 mmol/L) 109 H Carbon Dioxide (22 - 30 mmol/L) 22 Anion Gap (5 - 16) 12 BUN (7 - 17 mg/dL) 51 H Creatinine (0.5 - 1.0 mg/dL) 1.6 H Estimated GFR (>60 ml/min) 32 L Glucose (65 - 99 mg/dL) 120 H Lactic Acid (0.7 - 2.1 mmol/L) 2.4 H Calcium (8.4 - 10.2 mg/dL) 6.5 L Phosphorus (2.5 - 4.5 mg/dL) 3.2 Magnesium (1.6 - 2.3 mg/dL) 1.8 Total Bilirubin (0.2 - 1.3 mg/dL) 1.7 H AST (14 - 36 U/L) 94 H ALT (9 - 52 U/L) 104 H Troponin I (< 0.11 ng/ml) 0.05 Albumin (3.5 - 5.0 g/dL) 1.5 L Hematology CBC w Diff MAN DIFF ORDERED WBC (4.8 - 10.8 /CUMM) 30.7 *H RBC (4.20 - 5.40 /CUMM) 2.83 L Hgb (12.0 - 16.0 G/DL) 7.9 L Hct (37 - 47 %) 23.9 L MCV (81.0 - 99.0 FL) 84.5 MCH (27.0 - 31.0 PG) 27.8 RDW (11.5 - 14.5 %) 15.7 H Plt Count (130 - 400 /CUMM) 176 MPV (7.4 - 10.4 FL) 8.8 Gran % (42.2 - 75.2 %) 95.7 H Lymphocytes % (20.5 - 51.1 %) 2.8 L Monocytes % (1.7 - 9.3 %) 1.5 L Eosinophils % (0 - 5 %) 0 Basophils % (0.0 - 2.0 %) 0 Absolute Granulocytes (1.4 - 6.5 /CUMM) 29.4 H Segmented Neutrophils (42.2 - 75.2 %) 96 H Band Neutrophils (0.0 - 5.0 %) 3 Absolute Lymphocytes (1.2 - 3.4 /CUMM) 0.8 L Monocytes (1.7 - 9.3 %) 1 L Absolute Monocytes (0.10 - 0.60 /CUMM) 0.5 Absolute Eosinophils (0.0 - 0.7 /CUMM) 0 Absolute Basophils (0.0 - 0.2 /CUMM) 0 Platelet Estimate (ADEQUATE) ADEQUATE Hypochromic-Microcytic 1+ Poikilocytosis 1+ PUBS MCHC (33.0 - 37.0 G/DL) 32.9 L Miscellaneous Phlebotomy Draw Site ALHAMBRA 02/28 02/27 02/27 1304 5782 7085 Chemistry Sodium (137 - 145 mmol/L) 142 Potassium (3.5 - 5.1 mmol/L) 3.9 Chloride (98 - 107 mmol/L) 111 H Carbon Dioxide (22 - 30 mmol/L) 22 Anion Gap (5 - 16) 9 BUN (7 - 17 mg/dL) 49 H Creatinine (0.5 - 1.0 mg/dL) 1.7 H Estimated GFR (>60 ml/min) 30 L Glucose (65 - 99 mg/dL) 161 H Lactic Acid (0.7 - 2.1 mmol/L) 2.8 H 2.2 H 2.9 H Calcium (8.4 - 10.2 mg/dL) 6.3 L Phosphorus (2.5 - 4.5 mg/dL) 3.4 Magnesium (1.6 - 2.3 mg/dL) 1.8 Iron (37 - 170 ug/dL) 35 L TIBC (265 - 497 ug/dL) 102 L Ferritin (11.1 - 264 ng/mL) 957.0 H Total Bilirubin (0.2 - 1.3 mg/dL) 0.6 AST (14 - 36 U/L) 110 H ALT (9 - 52 U/L) 115 H Troponin I (< 0.11 ng/ml) 0.06 Albumin (3.5 - 5.0 g/dL) 1.3 L Hematology CBC w Diff MAN DIFF ORDERED WBC (4.8 - 10.8 /CUMM) 25.0 H RBC (4.20 - 5.40 /CUMM) 2.17 L Hgb (12.0 - 16.0 G/DL) 5.6 *L Hct (37 - 47 %) 17.9 *L MCV (81.0 - 99.0 FL) 82.7 MCH (27.0 - 31.0 PG) 26.0 L RDW (11.5 - 14.5 %) 17.7 H Plt Count (130 - 400 /CUMM) 202 MPV (7.4 - 10.4 FL) 8.4 Gran % (42.2 - 75.2 %) 94.7 H Lymphocytes % (20.5 - 51.1 %) 3.3 L Monocytes % (1.7 - 9.3 %) 2.0 Eosinophils % (0 - 5 %) 0 Basophils % (0.0 - 2.0 %) 0 Absolute Granulocytes (1.4 - 6.5 /CUMM) 23.6 H Segmented Neutrophils (42.2 - 75.2 %) 95 H Band Neutrophils (0.0 - 5.0 %) 2 Absolute Lymphocytes (1.2 - 3.4 /CUMM) 0.8 L Lymphocytes (20.5 - 51.1 %) 3 L Absolute Monocytes (0.10 - 0.60 /CUMM) 0.5 Absolute Eosinophils (0.0 - 0.7 /CUMM) 0 Absolute Basophils (0.0 - 0.2 /CUMM) 0 Platelet Estimate (ADEQUATE) VERIFIED BY SMEAR Normochromic RBCs VERIFIED Anisocytosis 1+ PUBS MCHC (33.0 - 37.0 G/DL) 31.5 L Other Body Source Fld Total RBCs Counted (%) 100 02/27 02/27 02/27 1830 1505 1320 Chemistry Lactic Acid (0.7 - 2.1 mmol/L) 4.3 H 5.2 H Urines Ur Random Creatinine (mg/dL) 49.5 Ur Random Sodium (30 - 90 mmol/L) 36 Ur Random Potassium (mmol/L) 45.8 Fraction Sodium Excret (<1% %) 0.8 Last 24 Hours of Caleb Results: Blood cultures February 26 negative Urine culture February 26 negative OR culture February 26 positive for alpha strep, Escherichia coli sensitive to all antibiotics tested, yeast and probable anaerobes Recent Imaging Studies: Chest x-ray February 28 reveals bilateral pleural effusions with overlying airspace disease Assessment/Plan Impression: She has overall improved, with blood pressure stable now off pressors, and with her respiratory status also stable, though she remains on the ventilator, now 2 days status 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 She remains afebrile but her white blood cell count remains elevated on Unasyn for polymicrobial sepsis, with Clostridium and Escherichia coli isolated from the blood cultures and also likely from the OR culture along with yeast. The significance of yeast in this setting is unclear but, given her overall status, feel that it should be treated. Her renal insufficiency and elevated liver enzymes are likely secondary to sepsis and appear to be improving. The etiology of her recent drop in H&H is unclear, but a GI source is possible with guaiac positive stools and dark emesis. She remains off Heparin, status post recent diagnosis of a right lower extremity DVT preop. Suggestion: 1. Further management with regard to anticoagulation per the critical care team and Surgery 2. Further evaluation regarding her presumed GI bleed per Medicine 3. Follow-up final OR cultures and pathology 4. Begin Fluconazole 800 mg IV 1 today, followed by 400 mg IV every 48 hours 5. Continue Unasyn
[2017-02-28 11:06] LABS: ABSOLUTE BASOPHIL COUNT 0 /CUMM (0.0-0.2); ABSOLUTE EOSINOPHIL COUNT 0 /CUMM (0.0-0.7); EOSINOPHIL % 0 % (0-5); MEAN PLATELET VOLUME 8.8 FL (7.4-10.4); RED BLOOD CELL CT 3.17 /CUMM (4.20-5.40)
[2017-02-28 11:11] LABS: ABSOLUTE GRANULOCYTE CT 31.7 /CUMM (1.4-6.5); ABSOLUTE LYMPH COUNT 0.8 /CUMM (1.2-3.4); ABSOLUTE MONOCYTE COUNT 0.6 /CUMM (0.10-0.60); BASOPHIL % 0.1 % (0.0-2.0); GRANULOCYTE % 95.9 % (42.2-75.2); HEMATOCRIT 26.4 % (37-47); MEAN CORPUSCULAR HGB 27.8 PG (27.0-31.0); MEAN CORPUSCULAR HGB CONC 33.3 G/DL (33.0-37.0); MEAN CORPUSCULAR VOLUME 83.3 FL (81.0-99.0); PLATELET COUNT 164 /CUMM (130-400); RBC DISTRIBUTION WIDTH 15.3 % (11.5-14.5)
--- NOTE | 2017-02-28 13:24 | PN- Att Addend ---
Attending Addendum Attending Brief Note Patient still in ICU looking a little better. Blood pressures improved and she is off the pressors she is alert and oriented still intubated day #2 will probably try and wean her off as soon as we can, She's afebrile no major changes on physical area status post major surgery with a colostomy patient H&H had dropped needed several transfusions with her white count is still on the high side. Appreciate Александр Chin MD's input and recommendations regarding antibiotic therapy and adding an antifungal treatment. We'll continue close observation in the ICU Intake & Output 02/28 1600 02/28 0400 02/27 1600 02/27 0400 02/26 1600 02/26 0400 Intake Total 2182 1928 4801 5886 2505.7 931 Output Total 480 480 552 500 640 4 Balance 1702 1448 4249 5386 1865.7 927 Intake, Blood 770 350 Product Intake, IV 1412 1928 4451 5886 2385.7 451 Intake, Oral 0 0 0 120 480 Intake, Other 0 0 Number 1 1 4 2 Bowel Movements Output, Chest 200 Tube Drainage Output, 200 190 200 Drainage Output, 10 Emesis Output, 0 400 600 Gastric Drainage Output, Other 50 Output, Stool 80 205 2 0 10 4 Output, Urine 200 85 150 50 20 Patient 200 lb 164 lb 162 lb Weight Weight Bed scale Bed scale Measurement Method Current Medications Sig/Jacobo Start time Last Medication Dose Route Stop Time Status Admin Acetaminophen 1,000 MG Q12P PRN 02/24 0845 AC N/A 1 UNIT IV Albumin Human 12.5 GM Q6 02/27 1806 AC 02/28 IV 1145 Ampicillin Sodium/ 3,000 MG Q6 02/26 1200 AC 02/28 Sulbactam Sodium IV 1145 Sodium Chloride 100 ML Fluconazole 400 MG Q48 03/02 1000 AC Sodium Chloride 200 ML IV Fluconazole 400 MG Q2H 02/28 1200 DC Sodium Chloride 200 ML IV Fluconazole 400 MG ONCE ONE 02/28 1200 CAN Sodium Chloride 200 ML IV 02/28 1359 Fluconazole 400 MG Q2H 02/28 1200 AC Sodium Chloride 200 ML IV 02/28 1559 Fluconazole 800 MG ONCE ONE 02/28 1145 CAN IV 02/28 1146 Morphine Sulfate 2 MG ONCE ONE 02/28 0115 DC 02/28 IV 02/28 0116 0115 Norepinephrine 4 MG Q4H 02/27 1000 DC 02/27 Dextrose/Water 250 ML IV 1518 Pantoprazole Sodium 40 MG DAILY 02/26 2038 AC 02/28 IV 0954 Sodium Chloride 1,000 ML BOLUS ONE 02/28 0745 DC 02/28 IV 02/28 0944 0835 Sodium Chloride 1,000 ML BOLUS ONE 02/28 2044 DC 02/27 IV 02/27 2242035 Sodium Chloride 1,000 ML BOLUS ONE 02/27 1200 DC 02/27 IV 02/27 1359 1226 Sodium Chloride 1,000 ML Q6H 02/27 0615 AC 02/28 IV 0622 Vasopressin 40 UNITS Q16H 02/27 1130 DC 02/27 Sodium Chloride 100 ML IV 1135 Laboratory Tests 02/28/17 1250: pH 7.47 H, pCO2 30 L, pO2 73 L, HCO3 22, ABG O2 Sat (Measured) 95.0 L, P-50 (Temp Corrected) NO, Carboxyhemoglobin 1.0 L, O2 Concentration % 35%, Temperature 98.6, O2 Delivery Method TPIECE, Phlebotomy Draw Site R ART LINE 02/28/17 1000: Lactic Acid 1.5, CBC w Diff MAN DIFF ORDERED, RBC 3.17 L, MCV 83.3, MCH 27.8, RDW 15.3 H, MPV 8.8, Gran % 95.9 H, Lymphocytes % 2.3 L, Monocytes % 1.7, Eosinophils % 0, Basophils % 0.1, Absolute Granulocytes 31.7 H, Absolute Lymphocytes 0.8 L, Absolute Monocytes 0.6, Absolute Eosinophils 0, Absolute Basophils 0, Polychromasia 1+, Anisocytosis 1+, PUBS MCHC 33.3 02/28/17 0700: pH 7.52 H, pCO2 27 L, pO2 90, HCO3 21, ABG O2 Sat (Measured) 96.0, P-50 (Temp Corrected) N, Carboxyhemoglobin 0.4 L, O2 Concentration % .35, Respiration Rate 20, O2 Delivery Method VENT, Vent Mode A/C, Expiratory Pressure 5, Tidal Volume 500, Phlebotomy Draw Site HELGA 02/28/17 0425: Lactic Acid 2.4 H 02/28/17 0425: Anion Gap 12, Estimated GFR 32 L, Glucose 120 H, Calcium 6.5 L, Phosphorus 3.2, Magnesium 1.8, Total Bilirubin 1.7 H, AST 94 H, ALT 104 H, Troponin I 0.05, Albumin 1.5 L, CBC w Diff MAN DIFF ORDERED, RBC 2.83 L, MCV 84.5, MCH 27.8, RDW 15.7 H, MPV 8.8, Gran % 95.7 H, Lymphocytes % 2.8 L, Monocytes % 1.5 L, Eosinophils % 0, Basophils % 0, Absolute Granulocytes 29.4 H, Segmented Neutrophils 96 H, Band Neutrophils 3, Absolute Lymphocytes 0.8 L, Monocytes 1 L, Absolute Monocytes 0.5, Absolute Eosinophils 0, Absolute Basophils 0, Platelet Estimate ADEQUATE, Hypochromic-Microcytic 1+, Poikilocytosis 1+, PUBS MCHC 32.9 L 02/28/17 0145: Lactic Acid 2.8 H 02/27/170: Anion Gap 9, Estimated GFR 30 L, Glucose 161 H, Lactic Acid 2.2 H, Calcium 6.3 L, Phosphorus 3.4, Magnesium 1.8, Iron 35 L, TIBC 102 L, Ferritin 957.0 H, Total Bilirubin 0.6, AST 110 H, ALT 115 H, Troponin I 0.06, Albumin 1.3 L, CBC w Diff MAN DIFF ORDERED, RBC 2.17 L, MCV 82.7, MCH 26.0 L, RDW 17.7 H, MPV 8.4, Gran % 94.7 H, Lymphocytes % 3.3 L, Monocytes % 2.0, Eosinophils % 0, Basophils % 0, Absolute Granulocytes 23.6 H, Segmented Neutrophils 95 H, Band Neutrophils 2, Absolute Lymphocytes 0.8 L, Lymphocytes 3 L, Absolute Monocytes 0.5, Absolute Eosinophils 0, Absolute Basophils 0, Platelet Estimate VERIFIED BY SMEAR, Normochromic RBCs VERIFIED, Anisocytosis 1+, PUBS MCHC 31.5 L, Fld Total RBCs Counted 100 02/27/17 1935: Lactic Acid 2.9 H 02/27/17 1830: Ur Random Creatinine 49.5, Ur Random Sodium 36, Ur Random Potassium 45.8, Fraction Sodium Excret 0.8 02/27/17 1505: Lactic Acid 4.3 H 02/27/17 1320: Lactic Acid 5.2 H 02/27/17 0620: pH 7.50 H, pCO2 23 L, pO2 94, HCO3 17 L, ABG O2 Sat (Measured) 96.0, Carboxyhemoglobin 1.1 L, O2 Concentration % 40, Respiration Rate 20, O2 Delivery Method VENT, Vent Mode AC, Expiratory Pressure 5, Tidal Volume 500, Phlebotomy Draw Site BLYTHEWOOD 02/27/17 0500: Sodium Cancelled, Potassium Cancelled, Chloride Cancelled, Carbon Dioxide Cancelled, Anion Gap Cancelled, BUN Cancelled, Creatinine Cancelled, Glucose Cancelled, Calcium Cancelled, Phosphorus Cancelled, Magnesium Cancelled, Total Bilirubin Cancelled, AST Cancelled, ALT Cancelled, Albumin Cancelled 02/27/17 0410: Lactic Acid 6.5 H 02/27/17 041: Anion Gap 15, Estimated GFR 34 L, Glucose 208 H, Calcium 6.5 L, Phosphorus 4.7 H, Magnesium 1.7, Total Bilirubin 1.2, AST 382 H, ALT 172 H, Troponin I 0.05, Albumin 1.5 L, CBC w Diff MAN DIFF ORDERED, RBC 2.98 L, MCV 83.1, MCH 26.7 L, RDW 18.4 H, MPV 8.9, Gran % 93.9 H, Lymphocytes % 3.4 L, Monocytes % 2.1, Eosinophils % 0.6, Basophils % 0, Absolute Granulocytes 25.7 H, Segmented Neutrophils 86 H, Band Neutrophils 9 H, Absolute Lymphocytes 0.9 L, Lymphocytes 3 L, Monocytes 2, Absolute Monocytes 0.6, Absolute Eosinophils 0.2, Absolute Basophils 0, Platelet Estimate ADEQUATE, Hypochromic-Microcytic 2+, Anisocytosis 1+, Target Cells 1+, Stomatocytes 1+, Blaine Cells 1+, Elliptocytes 1 +, PUBS MCHC 32.2 L 02/27/17 0311: CBC w Diff Cancelled, WBC Cancelled, RBC Cancelled, Hgb Cancelled, Hct Cancelled , MCV Cancelled, MCH Cancelled, RDW Cancelled, Plt Count Cancelled, MPV Cancelled, PUBS MCHC Cancelled 02/27/17 0245: pH 7.44, pCO2 23 L, pO2 122 H, HCO3 15 L, ABG O2 Sat (Measured) 97.0, Carboxyhemoglobin 0.9 L, O2 Concentration % 50, Respiration Rate 26, O2 Delivery Method VENT, Vent Mode AC, Expiratory Pressure 5, Tidal Volume 500, Phlebotomy Draw Site [place]THE[place]OD 02/27/17 0045: Lactic Acid 7.7 H 02/26/172309: pH 7.39, pCO2 25 L, pO2 139 H, HCO3 15 L, ABG O2 Sat (Measured) 98.0, P-50 ( Temp Corrected) Y, Carboxyhemoglobin 0.8 L, O2 Concentration % 50%, Temperature 97.7, Respiration Rate 26, O2 Delivery Method VENT, Vent Mode CMV, Expiratory Pressure 5, Tidal Volume 500, Phlebotomy Draw Site [place]THE[place] 02/26/172134: pH 7.19 *L, pCO2 28 L, pO2 90, HCO3 11 L, ABG O2 Sat (Measured) 92.0 L, P-50 (Temp Corrected) Y, Carboxyhemoglobin 0.3 L, O2 Concentration % 50%, Temperature 97.2, Respiration Rate 20, O2 Delivery Method VENT, Vent Mode CMV, Expiratory Pressure 5, Tidal Volume 500, Phlebotomy Draw Site [place]THE[place] 02/26/172124: Lactic Acid 10.3 H 02/26/172124: Anion Gap 19 H, Estimated GFR 34 L, Glucose 47 *L, Calcium 7.1 L, Phosphorus 6.3 H, Magnesium 2.0, Total Bilirubin 0.7, AST 343 H, ALT 138 H, Troponin I 0.04, Albumin 1.6 L, APTT 52 H, CBC w Diff MAN DIFF ORDERED, RBC 2.60 L, MCV 82.3, MCH 25.2 L, RDW 18.1 H, MPV 8.5, Gran % 97.5 H, Lymphocytes % 2.1 L, Monocytes % 0.4 L, Eosinophils % 0, Basophils % 0, Absolute Granulocytes 34.8 H, Segmented Neutrophils 71, Band Neutrophils 23 H, Absolute Lymphocytes 0.7 L , Lymphocytes 3 L, Monocytes 1 L, Absolute Monocytes 0.1, Absolute Eosinophils 0, Absolute Basophils 0, Metamyelocytes 2 H, Platelet Estimate ADEQUATE, Polychromasia 2+, Hypochromic-Microcytic 3+, Anisocytosis 1+, PUBS MCHC 30.6 L 02/26/171904: pH 7.07 *L, pCO2 42, pO2 355 H, HCO3 12 L, ABG O2 Sat (Measured) 98.0, P-50 ( Temp Corrected) Y, Carboxyhemoglobin 1.7, O2 Concentration % 100, Temperature 95.8 L, Respiration Rate 12, O2 Delivery Method VENT, Vent Mode AC, Expiratory Pressure 5, Tidal Volume 400, Phlebotomy Draw Site RIGHT RADIAL 02/26/17 1657: Lactic Acid 9.5 H 02/26/17 1305: pH 7.28 *L, pCO2 11 L, pO2 349 H, HCO3 5 L, ABG O2 Sat (Measured) 99.0, P-50 (Temp Corrected) N, Carboxyhemoglobin 0.2 L, O2 Concentration % 100%, Respiration Rate 24, O2 Delivery Method BIPAP, Vent Mode ST, Expiratory Pressure 6, Inspiratory Pressure 14, Phlebotomy Draw Site LEFT RADIAL 02/26/17 1242: Lactic Acid 11.6 H 02/26/17 1242: Anion Gap 25 H, Estimated GFR 40 L, BUN/Creatinine Ratio 31.5 H, Troponin I < 0.01, CBC w Diff NO MAN DIFF REQ, RBC 4.05 L, MCV 82.4, MCH 24.9 L, RDW 17.8 H, MPV 8.4, Gran % 95.1 H, Lymphocytes % 2.6 L, Monocytes % 2.2, Eosinophils % 0, Basophils % 0.1, Absolute Granulocytes 22.8 H, Absolute Lymphocytes 0.6 L, Absolute Monocytes 0.5, Absolute Eosinophils 0, Absolute Basophils 0, PUBS MCHC 30.2 L 02/26/17 1128: APTT 93 H 02/26/17 0423: Anion Gap 13, Estimated GFR > 60, BUN/Creatinine Ratio 42.2 H, APTT 108 *H, CBC w Diff MAN DIFF ORDERED, RBC 3.57 L, MCV 80.7 L, MCH 25.7 L, RDW 17.8 H, MPV 8.0, Gran % 96.7 H, Lymphocytes % 1.7 L, Monocytes % 1.6 L, Eosinophils % 0, Basophils % 0, Absolute Granulocytes 36.7 H, Segmented Neutrophils 88 H, Band Neutrophils 8 H, Absolute Lymphocytes 0.7 L, Lymphocytes 4 L, Absolute Monocytes 0.6, Absolute Eosinophils 0, Absolute Basophils 0, Platelet Estimate INCREASED, Hypochromic-Microcytic 1+, Poikilocytosis FEW, Anisocytosis 1+, PUBS MCHC 31.8 L, Fld Total RBCs Counted 100 02/25/17 1900: APTT 31 Microbiology 02/26 2345 URINE ROUT: Urine Culture - RES 02/27 2124 BLOOD: Blood Culture - RES 02/26 2100 LOWER RESP: Respiratory Culture - CAN Cancelled: SPECIMEN NOT RECEIVED IN LABORATORY 02/26 2100 LOWER RESP: Gram Stain - CAN Cancelled: SPECIMEN NOT RECEIVED IN LABORATORY 02/26 1900 STOOL: Clostridium difficile Toxin A & B - COMP 02/26 183 BODY FLUID: Body Fluid Culture - RES ALPHA STREP ESCHERICHIA COLI YEAST NOT SATNAM ALBICANS 02/26 183 BODY FLUID: Gram Stain - RES 02/26 1400 URINE ROUT: Urine Culture - COMP 02/26 1330 UPPER RESP: Surveillance Culture - COMP 02/26 1330 GI: Surveillance Culture - COMP 02/26 0305 BLOOD: Blood Culture - RECD Microbiology 02/26 2345 URINE ROUT: Urine Culture - RES 02/26 212 BLOOD: Blood Culture - RES 02/26 2100 LOWER RESP: Respiratory Culture - CAN Cancelled: SPECIMEN NOT RECEIVED IN LABORATORY 02/26 2100 LOWER RESP: Gram Stain - CAN Cancelled: SPECIMEN NOT RECEIVED IN LABORATORY 02/26 190 STOOL: Clostridium difficile Toxin A & B - COMP 02/26 183 BODY FLUID: Body Fluid Culture - RES ALPHA STREP ESCHERICHIA COLI YEAST NOT SATNAM ALBICANS 02/26 1834 BODY FLUID: Gram Stain - RES 02/26 1400 URINE ROUT: Urine Culture - COMP 02/26 1330 UPPER RESP: Surveillance Culture - COMP 02/26 1330 GI: Surveillance Culture - COMP 02/26 0305 BLOOD: Blood Culture - RECD Vital Signs Date Time Temp Pulse Resp B/P B/P Pulse O2 O2 Flow FiO2 Mean Ox Delivery Rate 02/28 1200 95 T Piece 35% 02/28 1117 35 02/28 0822 35 02/28 0800 07 Ventilator 35% 02/28 0800 98.6 87 21 138/58 97 Ventilator 35% 02/28 0651 35 02/28 0622 86 132/48 02/28 0419 35 02/28 0400 99 Ventilator 35% 02/28 0041 35 02/28 0000 98 Ventilator 35% 02/28 0000 99.2 92 20 112/40 98 Ventilator 35% 02/27 2208 35 02/27 2000 97 Ventilator 40% 02/27 1914 40 02/27 1711 104 118/45 02/27 1630 40 02/27 1600 97.8 104 20 130/50 97 Ventilator 40% 02/27 1546 98 Ventilator 40% 02/27 1427 40
--- NOTE | 2017-02-28 15:35 | PN- Nephrology ---
Assessment/Plan Assessment: 1. SEN secondary to sepsis - the low fractional excretion of sodium suggests that this may still be due to prerenal factors from decreased renal perfusion 2. Status post laparotomy with sigmoid colectomy, end colostomy, takedown of a colovesical fistula and left oophorectomy. 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 Suggestion: 1. Agree with holding IV crystalloid for now but would continue 25% albumin 12.5 g IV every 6 hours and reassess daily 2. Lasix 20 mg IV now. If no diuresis in 4 hours (and if blood pressure stable ) would increase to 40 mg and then repeat as needed (i.e. every 8-12 hours) if she responds 3. Antibiotic therapy per ID Subjective Subjective: Patient is now off pressors with a relatively stable blood pressure. Unfortunately, urine output remains suboptimal although her creatinine peaked at 1.7 last night and came down slightly to 1.6 this morning. Lactic acid down to 1.5. Objective Vital Signs and I&Os Vital Signs Date Time Temp Pulse Resp B/P B/P Pulse O2 O2 Flow FiO2 Mean Ox Delivery Rate 02/28 1424 35 02/28 1200 95 T Piece 35% 02/28 1117 35 02/28 0822 35 02/28 0800 07 Ventilator 35% 02/28 0800 98.6 87 21 138/58 97 Ventilator 35% 02/28 0651 35 02/28 0622 86 132/48 02/28 0419 35 02/28 0400 99 Ventilator 35% 02/28 0041 35 02/28 0000 98 Ventilator 35% 02/28 0000 99.2 92 20 112/40 98 Ventilator 35% 02/27 2208 35 02/27 2000 97 Ventilator 40% 02/27 1914 40 02/27 1711 104 118/45 02/27 1630 40 02/27 1600 97.8 104 20 130/50 97 Ventilator 40% 02/27 1546 98 Ventilator 40% Intake & Output 02/28 1600 02/28 0400 02/27 1600 02/27 0400 02/26 1600 02/26 0400 Intake Total 4637 1928 4801 5886 2505.7 931 Output Total 1380 480 552 500 640 4 Balance 3257 1448 4249 5386 1865.7 927 Intake, Blood 1070 350 Product Intake, IV 3567 1928 4451 5886 2385.7 451 Intake, Oral 0 0 0 120 480 Intake, Other 0 0 Number 1 1 4 2 Bowel Movements Output, Chest 200 Tube Drainage Output, 675 190 200 Drainage Output, 10 Emesis Output, 300 400 600 Gastric Drainage Output, Other 50 Output, Stool 80 205 2 0 10 4 Output, Urine 325 85 150 50 20 Patient 200 lb 164 lb 162 lb Weight Weight Bed scale Bed scale Measurement Method Physical Exam: General: Well-developed intubated and vented white female in no acute distress Skin: No rash or jaundice HEENT: Conjunctivae pale, sclerae anicteric, intubated Neck: Without masses, no supraclavicular or cervical adenopathy Chest: Clear anterolaterally Heart: Regular rate and rhythm without S3 or rub Abdomen: Soft, mild diffuse tenderness, MARYELLEN drain in place, left lower quadrant colostomy Extremities: Without cyanosis. 2+ lower extremity edema Neuro: Awake, alert and responsive. No focal findings, no asterixis or myoclonus Results Pertinent Lab Results: Laboratory Tests 02/28 02/28 02/28 1250 1000 0700 Blood Gas pH (7.35 - 7.45 PH) 7.47 H 7.52 H pCO2 (35 - 45 TORR) 30 L 27 L pO2 (80 - 100 TORR) 73 L 90 HCO3 (21 - 28 MEQ/L) 22 21 ABG O2 Sat (Measured) (>96.0 %) 95.0 L 96.0 P-50 (Temp Corrected) NO N Carboxyhemoglobin (1.5 - 5.0 %) 1.0 L 0.4 L O2 Concentration % 35% .35 Temperature (97.0 - 100.0 FARH) 98.6 Respiration Rate (BPM) 20 O2 Delivery Method TPIECE VENT Vent Mode A/C Expiratory Pressure (CMH2O/P) 5 Tidal Volume (CC) 500 Chemistry Lactic Acid (0.7 - 2.1 mmol/L) 1.5 Hematology CBC w Diff MAN DIFF ORDERED WBC (4.8 - 10.8 /CUMM) 33.0 *H RBC (4.20 - 5.40 /CUMM) 3.17 L Hgb (12.0 - 16.0 G/DL) 8.8 L Hct (37 - 47 %) 26.4 L MCV (81.0 - 99.0 FL) 83.3 MCH (27.0 - 31.0 PG) 27.8 RDW (11.5 - 14.5 %) 15.3 H Plt Count (130 - 400 /CUMM) 164 MPV (7.4 - 10.4 FL) 8.8 Gran % (42.2 - 75.2 %) 95.9 H Lymphocytes % (20.5 - 51.1 %) 2.3 L Monocytes % (1.7 - 9.3 %) 1.7 Eosinophils % (0 - 5 %) 0 Basophils % (0.0 - 2.0 %) 0.1 Absolute Granulocytes (1.4 - 6.5 /CUMM) 31.7 H Absolute Lymphocytes (1.2 - 3.4 /CUMM) 0.8 L Absolute Monocytes (0.10 - 0.60 /CUMM) 0.6 Absolute Eosinophils (0.0 - 0.7 /CUMM) 0 Absolute Basophils (0.0 - 0.2 /CUMM) 0 Polychromasia 1+ Anisocytosis 1+ PUBS MCHC (33.0 - 37.0 G/DL) 33.3 Miscellaneous Phlebotomy Draw Site R ART LINE HELGA 02/28 02/28 02/28 0425 0420 0145 Chemistry Sodium (137 - 145 mmol/L) 143 Potassium (3.5 - 5.1 mmol/L) 3.8 Chloride (98 - 107 mmol/L) 109 H Carbon Dioxide (22 - 30 mmol/L) 22 Anion Gap (5 - 16) 12 BUN (7 - 17 mg/dL) 51 H Creatinine (0.5 - 1.0 mg/dL) 1.6 H Estimated GFR (>60 ml/min) 32 L Glucose (65 - 99 mg/dL) 120 H Lactic Acid (0.7 - 2.1 mmol/L) 2.4 H 2.8 H Calcium (8.4 - 10.2 mg/dL) 6.5 L Phosphorus (2.5 - 4.5 mg/dL) 3.2 Magnesium (1.6 - 2.3 mg/dL) 1.8 Total Bilirubin (0.2 - 1.3 mg/dL) 1.7 H AST (14 - 36 U/L) 94 H ALT (9 - 52 U/L) 104 H Troponin I (< 0.11 ng/ml) 0.05 Albumin (3.5 - 5.0 g/dL) 1.5 L Hematology CBC w Diff MAN DIFF ORDERED WBC (4.8 - 10.8 /CUMM) 30.7 *H RBC (4.20 - 5.40 /CUMM) 2.83 L Hgb (12.0 - 16.0 G/DL) 7.9 L Hct (37 - 47 %) 23.9 L MCV (81.0 - 99.0 FL) 84.5 MCH (27.0 - 31.0 PG) 27.8 RDW (11.5 - 14.5 %) 15.7 H Plt Count (130 - 400 /CUMM) 176 MPV (7.4 - 10.4 FL) 8.8 Gran % (42.2 - 75.2 %) 95.7 H Lymphocytes % (20.5 - 51.1 %) 2.8 L Monocytes % (1.7 - 9.3 %) 1.5 L Eosinophils % (0 - 5 %) 0 Basophils % (0.0 - 2.0 %) 0 Absolute Granulocytes (1.4 - 6.5 /CUMM) 29.4 H Segmented Neutrophils (42.2 - 75.2 %) 96 H Band Neutrophils (0.0 - 5.0 %) 3 Absolute Lymphocytes (1.2 - 3.4 /CUMM) 0.8 L Monocytes (1.7 - 9.3 %) 1 L Absolute Monocytes (0.10 - 0.60 /CUMM) 0.5 Absolute Eosinophils (0.0 - 0.7 /CUMM) 0 Absolute Basophils (0.0 - 0.2 /CUMM) 0 Platelet Estimate (ADEQUATE) ADEQUATE Hypochromic-Microcytic 1+ Poikilocytosis 1+ PUBS MCHC (33.0 - 37.0 G/DL) 32.9 L 02/27 02/27 02/27 2230 1935 1830 Chemistry Sodium (137 - 145 mmol/L) 142 Potassium (3.5 - 5.1 mmol/L) 3.9 Chloride (98 - 107 mmol/L) 111 H Carbon Dioxide (22 - 30 mmol/L) 22 Anion Gap (5 - 16) 9 BUN (7 - 17 mg/dL) 49 H Creatinine (0.5 - 1.0 mg/dL) 1.7 H Estimated GFR (>60 ml/min) 30 L Glucose (65 - 99 mg/dL) 161 H Lactic Acid (0.7 - 2.1 mmol/L) 2.2 H 2.9 H Calcium (8.4 - 10.2 mg/dL) 6.3 L Phosphorus (2.5 - 4.5 mg/dL) 3.4 Magnesium (1.6 - 2.3 mg/dL) 1.8 Iron (37 - 170 ug/dL) 35 L TIBC (265 - 497 ug/dL) 102 L Ferritin (11.1 - 264 ng/mL) 957.0 H Total Bilirubin (0.2 - 1.3 mg/dL) 0.6 AST (14 - 36 U/L) 110 H ALT (9 - 52 U/L) 115 H Troponin I (< 0.11 ng/ml) 0.06 Albumin (3.5 - 5.0 g/dL) 1.3 L Hematology CBC w Diff MAN DIFF ORDERED WBC (4.8 - 10.8 /CUMM) 25.0 H RBC (4.20 - 5.40 /CUMM) 2.17 L Hgb (12.0 - 16.0 G/DL) 5.6 *L Hct (37 - 47 %) 17.9 *L MCV (81.0 - 99.0 FL) 82.7 MCH (27.0 - 31.0 PG) 26.0 L RDW (11.5 - 14.5 %) 17.7 H Plt Count (130 - 400 /CUMM) 202 MPV (7.4 - 10.4 FL) 8.4 Gran % (42.2 - 75.2 %) 94.7 H Lymphocytes % (20.5 - 51.1 %) 3.3 L Monocytes % (1.7 - 9.3 %) 2.0 Eosinophils % (0 - 5 %) 0 Basophils % (0.0 - 2.0 %) 0 Absolute Granulocytes (1.4 - 6.5 /CUMM) 23.6 H Segmented Neutrophils (42.2 - 75.2 %) 95 H Band Neutrophils (0.0 - 5.0 %) 2 Absolute Lymphocytes (1.2 - 3.4 /CUMM) 0.8 L Lymphocytes (20.5 - 51.1 %) 3 L Absolute Monocytes (0.10 - 0.60 /CUMM) 0.5 Absolute Eosinophils (0.0 - 0.7 /CUMM) 0 Absolute Basophils (0.0 - 0.2 /CUMM) 0 Platelet Estimate (ADEQUATE) VERIFIED BY SMEAR Normochromic RBCs VERIFIED Anisocytosis 1+ PUBS MCHC (33.0 - 37.0 G/DL) 31.5 L Other Body Source Fld Total RBCs Counted (%) 100 Urines Ur Random Creatinine (mg/dL) 49.5 Ur Random Sodium (30 - 90 mmol/L) 36 Ur Random Potassium (mmol/L) 45.8 Fraction Sodium Excret (<1% %) 0.8 02/27 02/27 02/27 02/27 02/27 1505 1320 0620 0500 0410 Blood Gas pH (7.35 - 7.45 PH) 7.50 H pCO2 (35 - 45 TORR) 23 L pO2 (80 - 100 TORR) 94 HCO3 (21 - 28 MEQ/L) 17 L ABG O2 Sat (Measured) (>96.0 %) 96.0 Carboxyhemoglobin (1.5 - 5.0 %) 1.1 L O2 Concentration % 40 Respiration Rate (BPM) 20 O2 Delivery Method VENT Vent Mode AC Expiratory Pressure (CMH2O/P) 5 Tidal Volume (CC) 500 Chemistry Sodium Cancelled Potassium Cancelled Chloride Cancelled Carbon Dioxide Cancelled Anion Gap Cancelled BUN Cancelled Creatinine Cancelled Glucose Cancelled Lactic Acid (0.7 - 2.1 mmol/L) 4.3 H 5.2 H 6.5 H Calcium Cancelled Phosphorus Cancelled Magnesium Cancelled Total Bilirubin Cancelled AST Cancelled ALT Cancelled Albumin Cancelled Miscellaneous Phlebotomy Draw Site VARINA 02/27 02/27 02/27 0410 0311 0245 Blood Gas pH (7.35 - 7.45 PH) 7.44 pCO2 (35 - 45 TORR) 23 L pO2 (80 - 100 TORR) 122 H HCO3 (21 - 28 MEQ/L) 15 L ABG O2 Sat (Measured) (>96.0 %) 97.0 Carboxyhemoglobin (1.5 - 5.0 %) 0.9 L O2 Concentration % 50 Respiration Rate (BPM) 26 O2 Delivery Method VENT Vent Mode AC Expiratory Pressure (CMH2O/P) 5 Tidal Volume (CC) 500 Chemistry Sodium (137 - 145 mmol/L) 140 Potassium (3.5 - 5.1 mmol/L) 4.6 Chloride (98 - 107 mmol/L) 107 Carbon Dioxide (22 - 30 mmol/L) 18 L Anion Gap (5 - 16) 15 BUN (7 - 17 mg/dL) 41 H Creatinine (0.5 - 1.0 mg/dL) 1.5 H Estimated GFR (>60 ml/min) 34 L Glucose (65 - 99 mg/dL) 208 H Calcium (8.4 - 10.2 mg/dL) 6.5 L Phosphorus (2.5 - 4.5 mg/dL) 4.7 H Magnesium (1.6 - 2.3 mg/dL) 1.7 Total Bilirubin (0.2 - 1.3 mg/dL) 1.2 AST (14 - 36 U/L) 382 H ALT (9 - 52 U/L) 172 H Troponin I (< 0.11 ng/ml) 0.05 Albumin (3.5 - 5.0 g/dL) 1.5 L Hematology CBC w Diff MAN DIFF ORDERED Cancelled WBC (4.8 - 10.8 /CUMM) 27.4 H Cancelled RBC (4.20 - 5.40 /CUMM) 2.98 L Cancelled Hgb (12.0 - 16.0 G/DL) 8.0 L Cancelled Hct (37 - 47 %) 24.8 L Cancelled MCV (81.0 - 99.0 FL) 83.1 Cancelled MCH (27.0 - 31.0 PG) 26.7 L Cancelled RDW (11.5 - 14.5 %) 18.4 H Cancelled Plt Count (130 - 400 /CUMM) 315 Cancelled MPV (7.4 - 10.4 FL) 8.9 Cancelled Gran % (42.2 - 75.2 %) 93.9 H Lymphocytes % (20.5 - 51.1 %) 3.4 L Monocytes % (1.7 - 9.3 %) 2.1 Eosinophils % (0 - 5 %) 0.6 Basophils % (0.0 - 2.0 %) 0 Absolute Granulocytes (1.4 - 6.5 /CUMM) 25.7 H Segmented Neutrophils (42.2 - 75.2 %) 86 H Band Neutrophils (0.0 - 5.0 %) 9 H Absolute Lymphocytes (1.2 - 3.4 /CUMM) 0.9 L Lymphocytes (20.5 - 51.1 %) 3 L Monocytes (1.7 - 9.3 %) 2 Absolute Monocytes (0.10 - 0.60 /CUMM) 0.6 Absolute Eosinophils (0.0 - 0.7 /CUMM) 0.2 Absolute Basophils (0.0 - 0.2 /CUMM) 0 Platelet Estimate (ADEQUATE) ADEQUATE Hypochromic-Microcytic 2+ Anisocytosis 1+ Target Cells 1+ Stomatocytes 1+ Blaine Cells 1+ Elliptocytes 1+ PUBS MCHC (33.0 - 37.0 G/DL) 32.2 L Cancelled Miscellaneous Phlebotomy Draw Site VARINA 02/27 02/26 02/26 02/26 0045 2310 2135 2125 Blood Gas pH (7.35 - 7.45 PH) 7.39 7.19 *L pCO2 (35 - 45 TORR) 25 L 28 L pO2 (80 - 100 TORR) 139 H 90 HCO3 (21 - 28 MEQ/L) 15 L 11 L ABG O2 Sat (Measured) (>96.0 %) 98.0 92.0 L P-50 (Temp Corrected) Y Y Carboxyhemoglobin (1.5 - 5.0 %) 0.8 L 0.3 L O2 Concentration % 50% 50% Temperature (97.0 - 100.0 FARH) 97.7 97.2 Respiration Rate (BPM) 26 20 O2 Delivery Method VENT VENT Vent Mode CMV CMV Expiratory Pressure (CMH2O/P) 5 5 Tidal Volume (CC) 500 500 Chemistry Lactic Acid (0.7 - 2.1 mmol/L) 7.7 H 10.3 H Miscellaneous Phlebotomy Draw Site [facility] 02/26 02/26 2125 1905 Blood Gas pH (7.35 - 7.45 PH) 7.07 *L pCO2 (35 - 45 TORR) 42 pO2 (80 - 100 TORR) 355 H HCO3 (21 - 28 MEQ/L) 12 L ABG O2 Sat (Measured) (>96.0 %) 98.0 P-50 (Temp Corrected) Y Carboxyhemoglobin (1.5 - 5.0 %) 1.7 O2 Concentration % 100 Temperature (97.0 - 100.0 FARH) 95.8 L Respiration Rate (BPM) 12 O2 Delivery Method VENT Vent Mode AC Expiratory Pressure (CMH2O/P) 5 Tidal Volume (CC) 400 Chemistry Sodium (137 - 145 mmol/L) 142 Potassium (3.5 - 5.1 mmol/L) 4.8 Chloride (98 - 107 mmol/L) 110 H Carbon Dioxide (22 - 30 mmol/L) 12 L Anion Gap (5 - 16) 19 H BUN (7 - 17 mg/dL) 38 H Creatinine (0.5 - 1.0 mg/dL) 1.5 H Estimated GFR (>60 ml/min) 34 L Glucose (65 - 99 mg/dL) 47 *L Calcium (8.4 - 10.2 mg/dL) 7.1 L Phosphorus (2.5 - 4.5 mg/dL) 6.3 H Magnesium (1.6 - 2.3 mg/dL) 2.0 Total Bilirubin (0.2 - 1.3 mg/dL) 0.7 AST (14 - 36 U/L) 343 H ALT (9 - 52 U/L) 138 H Troponin I (< 0.11 ng/ml) 0.04 Albumin (3.5 - 5.0 g/dL) 1.6 L Coagulation APTT (25 - 37 SEC) 52 H Hematology CBC w Diff MAN DIFF ORDERED WBC (4.8 - 10.8 /CUMM) 35.7 *H RBC (4.20 - 5.40 /CUMM) 2.60 L Hgb (12.0 - 16.0 G/DL) 6.6 *L Hct (37 - 47 %) 21.4 L MCV (81.0 - 99.0 FL) 82.3 MCH (27.0 - 31.0 PG) 25.2 L RDW (11.5 - 14.5 %) 18.1 H Plt Count (130 - 400 /CUMM) 348 MPV (7.4 - 10.4 FL) 8.5 Gran % (42.2 - 75.2 %) 97.5 H Lymphocytes % (20.5 - 51.1 %) 2.1 L Monocytes % (1.7 - 9.3 %) 0.4 L Eosinophils % (0 - 5 %) 0 Basophils % (0.0 - 2.0 %) 0 Absolute Granulocytes (1.4 - 6.5 /CUMM) 34.8 H Segmented Neutrophils (42.2 - 75.2 %) 71 Band Neutrophils (0.0 - 5.0 %) 23 H Absolute Lymphocytes (1.2 - 3.4 /CUMM) 0.7 L Lymphocytes (20.5 - 51.1 %) 3 L Monocytes (1.7 - 9.3 %) 1 L Absolute Monocytes (0.10 - 0.60 /CUMM) 0.1 Absolute Eosinophils (0.0 - 0.7 /CUMM) 0 Absolute Basophils (0.0 - 0.2 /CUMM) 0 Metamyelocytes (0.0 - 1.0 %) 2 H Platelet Estimate (ADEQUATE) ADEQUATE Polychromasia 2+ Hypochromic-Microcytic 3+ Anisocytosis 1+ PUBS MCHC (33.0 - 37.0 G/DL) 30.6 L Miscellaneous Phlebotomy Draw Site RIGHT RADIAL 02/26 02/26 02/26 1657 1305 1242 Blood Gas pH (7.35 - 7.45 PH) 7.28 *L pCO2 (35 - 45 TORR) 11 L pO2 (80 - 100 TORR) 349 H HCO3 (21 - 28 MEQ/L) 5 L ABG O2 Sat (Measured) (>96.0 %) 99.0 P-50 (Temp Corrected) N Carboxyhemoglobin (1.5 - 5.0 %) 0.2 L O2 Concentration % 100% Respiration Rate (BPM) 24 O2 Delivery Method BIPAP Vent Mode ST Expiratory Pressure (CM H2O P) 6 Inspiratory Pressure (CM H2O P) 14 Chemistry Lactic Acid (0.7 - 2.1 mmol/L) 9.5 H 11.6 H Miscellaneous Phlebotomy Draw Site LEFT RADIAL 02/26 02/26 1242 1128 Chemistry Sodium (137 - 145 mmol/L) 139 Potassium (3.5 - 5.1 mmol/L) 4.5 Chloride (98 - 107 mmol/L) 105 Carbon Dioxide (22 - 30 mmol/L) 9 *L Anion Gap (5 - 16) 25 H BUN (7 - 17 mg/dL) 41 H Creatinine (0.5 - 1.0 mg/dL) 1.3 H Estimated GFR (>60 ml/min) 40 L BUN/Creatinine Ratio (7 - 25 %) 31.5 H Troponin I (< 0.11 ng/ml) < 0.01 Coagulation APTT (25 - 37 SEC) 93 H Hematology CBC w Diff NO MAN DIFF REQ WBC (4.8 - 10.8 /CUMM) 24.0 H RBC (4.20 - 5.40 /CUMM) 4.05 L Hgb (12.0 - 16.0 G/DL) 10.1 L Hct (37 - 47 %) 33.3 L MCV (81.0 - 99.0 FL) 82.4 MCH (27.0 - 31.0 PG) 24.9 L RDW (11.5 - 14.5 %) 17.8 H Plt Count (130 - 400 /CUMM) 452 H MPV (7.4 - 10.4 FL) 8.4 Gran % (42.2 - 75.2 %) 95.1 H Lymphocytes % (20.5 - 51.1 %) 2.6 L Monocytes % (1.7 - 9.3 %) 2.2 Eosinophils % (0 - 5 %) 0 Basophils % (0.0 - 2.0 %) 0.1 Absolute Granulocytes (1.4 - 6.5 /CUMM) 22.8 H Absolute Lymphocytes (1.2 - 3.4 /CUMM) 0.6 L Absolute Monocytes (0.10 - 0.60 /CUMM) 0.5 Absolute Eosinophils (0.0 - 0.7 /CUMM) 0 Absolute Basophils (0.0 - 0.2 /CUMM) 0 PUBS MCHC (33.0 - 37.0 G/DL) 30.2 L 02/26 02/25 0423 1900 Chemistry Sodium (137 - 145 mmol/L) 137 Potassium (3.5 - 5.1 mmol/L) 4.1 Chloride (98 - 107 mmol/L) 105 Carbon Dioxide (22 - 30 mmol/L) 19 L Anion Gap (5 - 16) 13 BUN (7 - 17 mg/dL) 38 H Creatinine (0.5 - 1.0 mg/dL) 0.9 Estimated GFR (>60 ml/min) > 60 BUN/Creatinine Ratio (7 - 25 %) 42.2 H Coagulation APTT (25 - 37 SEC) 108 *H 31 Hematology CBC w Diff MAN DIFF ORDERED WBC (4.8 - 10.8 /CUMM) 38.0 *H RBC (4.20 - 5.40 /CUMM) 3.57 L Hgb (12.0 - 16.0 G/DL) 9.2 L Hct (37 - 47 %) 28.8 L MCV (81.0 - 99.0 FL) 80.7 L MCH (27.0 - 31.0 PG) 25.7 L RDW (11.5 - 14.5 %) 17.8 H Plt Count (130 - 400 /CUMM) 431 H MPV (7.4 - 10.4 FL) 8.0 Gran % (42.2 - 75.2 %) 96.7 H Lymphocytes % (20.5 - 51.1 %) 1.7 L Monocytes % (1.7 - 9.3 %) 1.6 L Eosinophils % (0 - 5 %) 0 Basophils % (0.0 - 2.0 %) 0 Absolute Granulocytes (1.4 - 6.5 /CUMM) 36.7 H Segmented Neutrophils (42.2 - 75.2 %) 88 H Band Neutrophils (0.0 - 5.0 %) 8 H Absolute Lymphocytes (1.2 - 3.4 /CUMM) 0.7 L Lymphocytes (20.5 - 51.1 %) 4 L Absolute Monocytes (0.10 - 0.60 /CUMM) 0.6 Absolute Eosinophils (0.0 - 0.7 /CUMM) 0 Absolute Basophils (0.0 - 0.2 /CUMM) 0 Platelet Estimate (ADEQUATE) INCREASED Hypochromic-Microcytic 1+ Poikilocytosis FEW Anisocytosis 1+ PUBS MCHC (33.0 - 37.0 G/DL) 31.8 L Other Body Source Fld Total RBCs Counted (%) 100
[2017-02-28 16:00] VITALS: BP 136/64
[2017-02-28 21:05] LABS: ABSOLUTE BASOPHIL COUNT 0 /CUMM (0.0-0.2); ABSOLUTE EOSINOPHIL COUNT 0 /CUMM (0.0-0.7); ABSOLUTE GRANULOCYTE CT 28.9 /CUMM (1.4-6.5); ABSOLUTE LYMPH COUNT 0.7 /CUMM (1.2-3.4); ABSOLUTE MONOCYTE COUNT 0.1 /CUMM (0.10-0.60); BASOPHIL % 0 % (0.0-2.0); EOSINOPHIL % 0.1 % (0-5); HEMATOCRIT 26.3 % (37-47); MEAN CORPUSCULAR HGB 27.6 PG (27.0-31.0); MEAN CORPUSCULAR VOLUME 83.8 FL (81.0-99.0); MEAN PLATELET VOLUME 9.6 FL (7.4-10.4); PLATELET COUNT 160 /CUMM (130-400); RBC DISTRIBUTION WIDTH 15.3 % (11.5-14.5); RED BLOOD CELL CT 3.14 /CUMM (4.20-5.40); WHITE BLOOD CELL COUNT 29.8 /CUMM (4.8-10.8)
--- NOTE | 2017-03-01 05:36 | PN- General Surgery ---
Subjective Subjective: Patient relatively comfortable overnight, offered no complaints. Did not sleep well. Denied pain throughout night. Objective Vital Signs and I&Os Vital Signs Date Time Temp Pulse Resp B/P B/P Pulse O2 O2 Flow FiO2 Mean Ox Delivery Rate 03/01 0101 35 03/01 0042 95 Ventilator 35% 02/28 2134 99.8 02/28 2000 94 Ventilator 35% 02/28 1957 35 02/28 1955 101.2 02/28 1712 35 02/28 1600 95 Ventilator 35% 02/28 1600 99.4 88 21 136/64 95 Ventilator 35% 02/28 1424 35 02/28 1200 95 T Piece 35% 02/28 1117 35 02/28 0822 35 02/28 0800 07 Ventilator 35% 02/28 0800 98.6 87 21 138/58 97 Ventilator 35% 02/28 0651 35 02/28 0622 86 132/48 Intake & Output 03/01 0800 03/01 0000 02/28 1600 02/28 0800 02/28 0000 02/27 1600 Intake Total 2150 2455 2182 1928 2546 Output Total 2570 900 480 480 276 Balance -420 1555 1702 1448 2270 Intake, Blood 300 770 Product Intake, IV 2150 2155 1412 1928 2546 Intake, Oral 0 0 0 Intake, Other 0 Output, Chest 200 Tube Drainage Output, 1370 475 200 190 Drainage Output, 100 300 0 Gastric Drainage Output, Stool 0 80 205 1 Output, Urine 1100 125 200 85 75 Patient 200 lb Weight Weight Bed scale Measurement Method Physical Exam: General: Alert and oriented, intubated, able to communicate via nodding/facial expressions Cardiac: RRR, s1s2 Pulm: C T A, on vent Abdomen: Silvana-incisional tenderness. Dressing intact. Stoma dark brown, with red areas throughout, appears viable and patent. Ostomy output minimal, dark liquid presently. NGT output thick, brown. MARYELLEN drain continues to hold suction. Output increased significantly during day yesterday. Remains serous. : Pete in place, urine clear in character, pale yellow in color. Output improved post lasix. Extremiteis: Moves all extremities, distal sensation grossly intact. Known DVT to RLE. Non-tender on exam. Assessment/Plan Assessment/Plan This is a 71 year old female, POD 3 s/p hartmans for perf'd sigmoid colovesicular fistula, peritonitis and sepsis. Expericed acute blood loss anemia post operatively, was given 3 units prbc, hemodynamically appears to have stablilized for the time being. Fluid output has increased. MARYELLEN drainage signficantly more than two days ago. Third spacing fluid shift anticipated. CVP monitored closely. Dipped to 3 during evening shift, fluid bolus was given in order to maintain appropriate intravascular volume despite diuresis and third spacing of fluid. Following bolus, CVP remained between 4-5. Will continue to monitor ostomy output vs ngt output, will continue to assess viability and patency of stoma. Continue to follow h/h, resume anticoagulation once stable, will discuss appropriateness with Dr. Jacobs. Continue to monitor leukocytosis. Was trending high yesterday, began to downtrend last night. Continue current abx regimen. Core Measures Venous Thromboembolism VTE Risk Factors Age>40 No Mechanical VTE Prophylaxis d/t N/A MechProphylax Ordered No VTE Pharm Prophylaxis d/t NA PharmProphylax ordered
--- NOTE | 2017-03-01 05:36 | PN- Resident CRCU ---
Subjective HPI/CRCU Issues: Pt seems comfortable, and wanted to be extubated. 24 Hour Events: Tm 100.4 HR range 80-92 SBP range 120s- 150s DBP range 48-59 Ventilator settings: Volume assist mode; TV 500, RR 20, PEEP 5, FiO2 35%. Low PIP. MARYELLEN drain: 1800ml ( ? vesical fistula ). Input 1050 ml Output 2900 ml Objective Vital Signs & I&O Last 8 Hrs of Vitals and I&O: Intake & Output 03/01 1600 Intake Total 572 Output Total 2620 Balance -8 Intake, IV 542 Intake, Other 30 Output, 1875 Drainage Output, 0 Gastric Drainage Output, Stool 25 Output, Urine 720 Patient 195 lb Weight Weight Bed scale Measurement Method Exam General Appearance: no apparent distress Other Physical Findings: General Appearance: no apparent distress Other Physical Findings: General Appearance: no apparent distress, awake, intubated, obese Head: atraumatic, normal appearance Ears, Nose, Throat: normal pharynx, normal ENT inspection, hearing grossly normal Neck: normal inspection, supple, limited range of motion Respiratory: normal breath sounds, rhonchi Cardiovascular: regular rate/rhythm, edema Gastrointestinal: normal bowel sounds, soft, non-tender Extremities: normal inspection, normal capillary refill, normal range of motion, no edema Cranial Nerves: normal hearing, normal speech, PERRL Skin: normal color, warm/dry, colostomy bag in place Skin Temp/Moisture Exam: Warm/Dry Sepsis Skin Exam (color): Normal for Ethnicity Back: could not be examined Sepsis Peripheral Pulse Location: Dorsalis Pedis Sepsis Peripheral Pulse Exam: Weak Sepsis Cap Refill Exam: <2 Sec Central Line Site: Right IJ Arterial Site: Right arterial Weaning Schedule Start Time: 1011 Minute Volume: 5.2 Resp Rate: 25 Vt: 300 Heart Rate: 85 End Time: 1300 Current Medications: Current Medications Sig/Jacobo Start time Last Medication Dose Route Stop Time Status Admin Acetaminophen 1,000 MG Q12P PRN 02/24 0845 AC 02/28 N/A 1 UNIT IV 1954 Albumin Human 12.5 GM Q6 02/27 1806 AC 03/02 IV 0506 Ampicillin Sodium/ 3,000 MG Q6 02/26 1200 AC 03/02 Sulbactam Sodium IV 0522 Sodium Chloride 100 ML Dextrose/Water 1,000 ML Q13H 03/01 1315 AC 03/02 IV 0506 Fluconazole 400 MG Q48 03/02 1000 AC 03/02 Sodium Chloride 200 ML IV 1025 Magnesium Sulfate 1 GM ONCE ONE 03/01 1015 DC 03/01 Dextrose/Water 100 ML IV 03/01 1414 1050 Pantoprazole Sodium 40 MG DAILY 02/26 2038 AC 03/02 IV 0837 Potassium Chloride 20 MEQ Q1H 03/02 0615 DC 03/02 IV 03/02 0716 0837 Impression/Plan Impression/Problem List Impression: Ms Murphy is a 71-year-old woman with PMHx of arthritis, chronic b/l lower extremity edema presented to [place] ED on 02/22 with complaints of burning during urination and increased frequency and urgency, along with extreme weakness anorexia, and a 10 pound weight loss. She was initially being managed for sepsis of urological origin and a right leg DVT. She subsequently developed diarrhea, abdominal pain, hypotension and tachypnea requiring ICU admission. Chest X-ray shows air under the diaphragm and coupled with the findings of her earlier CT abdomen showing colonic thickening and her feculent urine, there is concern for colonic perforation. She is being evaluated by General Surgery for emergent exploratory laparotomy. Plan 1. 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 She has been putting out large volume in MARYELLEN drain after iv lasix, likely from vesiculorectal fistula that is draining into the peritoneal cavity. Discussed w/ the surgical PA, and asked him to inform Dr. Jacobs. * currently on unasyn. * monitor vitals closely. 2. Sepsis and hypotension * keep MAP >65 mmhg * Hold vasopressin and levo. * Monitor urine output and fluid input output; she is currently in positive fluid balance and would benefit from a dose of furosemide. * Trend lactate, improving now. * Continue unasyn, and add fluconazole corrected to renal dosing. * White count worsening likely from peritonitis. 3. Metabolic acidosis * Patient has lactic acidosis from sepsis * Received bicarbonate pushes. pH improved. * Recheck ABG in the am. 4. Right leg DVT * IV heparin has been discontinued in anticipation of surgery * Will discuss with vascular surgery about puting an IVC filter post op after patient is stabilized * IN the meantime continue DVT prophylaxis with ALPS * Restart heparin AC in the am 5. Anemia * Likely GI bleed. CT abdmomen did not reveal any intra-abdominal bleeding. * Check CBC post transfusion. Housekeepin. DVT prophylaxis: ALPS 2. Ventilation management: Wean trial today, and extubate after checking the ABG. Problem List: 1. Colitis 2. Acute cystitis 3. Lactic acid acidosis 4. Leukocytosis Pain Ratin Tomorrow's Labs & Rationales: cbc icu bundle. Plan DVT/Prophylaxis: mechanical
[2017-03-01 06:10] LABS: ABSOLUTE BASOPHIL COUNT 0 /CUMM (0.0-0.2); ABSOLUTE EOSINOPHIL COUNT 0 /CUMM (0.0-0.7); ABSOLUTE GRANULOCYTE CT 27.8 /CUMM (1.4-6.5); ABSOLUTE LYMPH COUNT 0.9 /CUMM (1.2-3.4); ABSOLUTE MONOCYTE COUNT 0 /CUMM (0.10-0.60); BASOPHIL % 0.1 % (0.0-2.0); EOSINOPHIL % 0.1 % (0-5); GRANULOCYTE % 96.7 % (42.2-75.2); MEAN CORPUSCULAR HGB 27.2 PG (27.0-31.0); MEAN CORPUSCULAR HGB CONC 32.5 G/DL (33.0-37.0); MEAN CORPUSCULAR VOLUME 83.7 FL (81.0-99.0); MEAN PLATELET VOLUME 8.8 FL (7.4-10.4); PLATELET COUNT 162 /CUMM (130-400); RBC DISTRIBUTION WIDTH 15.7 % (11.5-14.5); RED BLOOD CELL CT 3.23 /CUMM (4.20-5.40); WHITE BLOOD CELL COUNT 28.8 /CUMM (4.8-10.8)
--- NOTE | 2017-03-01 07:52 | PN- General Surgery ---
Surgical Brief Attending Note Brief Attending Note: As per PA note. Improved sepsis with return of renal function. Minimize iv fluids now. Continue iglesias for 14days in treatment of colovesicle fistula. OK to restart anticoagulation for treatment of DVT.
[2017-03-01 08:00] VITALS: BP 150/60
--- NOTE | 2017-03-01 09:36 | RADIOLOGY REPORT ---
EXAMINATION: CR PORTABLE CHEST CLINICAL INFORMATION: Respiratory failure. Status post intubation. Evaluate for pulmonary edema. COMPARISON: Chest x-ray dated 02/28/2017. TECHNIQUE: Portable AP semierect view of the chest was obtained. FINDINGS: Endotracheal tube tip is approximately 4.5 cm above the isha. Enteric tube courses into the abdomen with tip not included. Right jugular central venous line is in place with tip in the cavoatrial junction. Multiple EKG leads overlie the chest, obscuring assessment. Cardiac mediastinal silhouette is within normal limits in size. Central vascular congestion and perihilar opacities are again noted, unchanged, consistent with pulmonary edema. Associated small bilateral layering pleural effusions and bibasilar opacities likely due to atelectatic changes are also unchanged. No pneumothorax is seen. Mild degenerative changes in the shoulder joints bilaterally and the thoracic spine again noted. Bony structures otherwise unremarkable. IMPRESSION: 1. Endotracheal tube tip 4.5 cm above the isha. 2. Enteric tube tip not included in the upper abdomen. 3. Right jugular central venous line tip in cavoatrial junction. 4. No significant change in pulmonary edema with small bilateral pleural effusions and associated bibasilar opacities, likely related to atelectasis.
--- NOTE | 2017-03-01 09:37 | PN- CRCU ---
Subjective HPI/Critical Care Issues: The patient is awake and alert. She is now off pressors. Her uringe output has improved. She remains intubated and sedated. Her Tmax was 101.2. She did good with her weaning trials yesterday, which will begin again today. She denies any pain or discomfort. Objective Current Medications: Current Medications Sig/Jacobo Start time Last Medication Dose Route Stop Time Status Admin Acetaminophen 1,000 MG .STK-MED ONE 02/28 1946 DC IV 02/28 194 Acetaminophen 1,000 MG Q12P PRN 02/24 0845 AC 02/28 N/A 1 UNIT IV 1954 Albumin Human 12.5 GM Q6 02/27 1806 AC 03/01 IV 0558 Ampicillin Sodium/ 3,000 MG Q6 02/26 1200 AC 03/01 Sulbactam Sodium IV 0558 Sodium Chloride 100 ML Fluconazole 400 MG Q48 03/02 1000 AC Sodium Chloride 200 ML IV Fluconazole 400 MG Q2H 02/28 1200 DC Sodium Chloride 200 ML IV Fluconazole 400 MG ONCE ONE 02/28 1200 CAN Sodium Chloride 200 ML IV 02/28 1359 Fluconazole 400 MG Q2H 02/28 1200 DC 02/28 Sodium Chloride 200 ML IV 02/28 1559 1615 Fluconazole 800 MG ONCE ONE 02/28 1145 CAN IV 02/28 1146 Furosemide 20 MG ONCE ONE 03/01 0900 DC 03/01 IV 03/01 0901 0908 Furosemide 20 MG ONCE ONE 02/28 2145 DC 02/28 IV 02/28 2146 2153 Furosemide 20 MG ONCE ONE 02/28 1500 DC 02/28 IV 02/28 1501 1504 Pantoprazole Sodium 40 MG DAILY 02/26 2039 AC 03/01 IV 0915 Potassium Chloride 20 MEQ Q1H 03/01 0745 DC 03/01 IV 03/01 0846 0908 Potassium Chloride 20 MEQ Q1H 02/28 2145 DC 03/01 IV 02/28 2246 0025 Sodium Chloride 1,000 ML BOLUS ONE 02/28 2015 DC 02/28 IV 02/28 2214 2044 Sodium Chloride 1,000 ML BOLUS ONE 02/28 0745 DC 02/28 IV 02/28 0944 0835 Sodium Chloride 1,000 ML Q6H 02/27 0615 DC 02/28 IV 0622 Vital Signs & I&O Last 24 Hrs of Vitals and I&O: Vital Signs Date Time Temp Pulse Resp B/P B/P Pulse O2 O2 Flow FiO2 Mean Ox Delivery Rate 03/01 0626 95 Ventilator 35% 03/01 0546 35 03/01 0101 35 03/01 0042 95 Ventilator 35% 02/28 2134 99.8 02/28 2000 94 Ventilator 35% 02/28 1957 35 02/28 1955 101.2 02/28 1712 35 02/28 1600 95 Ventilator 35% 02/28 1600 99.4 88 21 136/64 95 Ventilator 35% 02/28 1424 35 02/28 1200 95 T Piece 35% 02/28 1117 35 Intake & Output 03/01 1600 03/01 0800 03/01 0000 Intake Total 400 2150 Output Total 2900 2570 Balance -2500 -420 Intake, IV 400 2150 Intake, Oral 0 Output, 1800 1370 Drainage Output, 50 100 Gastric Drainage Output, Stool 0 Output, Urine 1050 1100 Exam General Appearance: no apparent distress, on mechanical ventilation General Appearance: no apparent distress, awake, intubated, obese Head: atraumatic, normal appearance Ears, Nose, Throat: normal pharynx, normal ENT inspection, hearing grossly normal Neck: normal inspection, supple, limited range of motion Respiratory: normal breath sounds, rhonchi Cardiovascular: regular rate/rhythm, edema Gastrointestinal: soft, non-tender, absent bowel sounds, dressings in place Extremities: normal inspection, normal capillary refill, no edema Skin: normal color, warm/dry, colostomy bag in place Skin Temp/Moisture Exam: Warm/Dry Sepsis Skin Exam (color): Normal for Ethnicity Back: could not be examined Central Line Site: Right IJ Arterial Site: Right arterial Results Last 24 Hrs of Lab Results: Laboratory Tests 03/01/17 0350: Anion Gap 13, Estimated GFR 40 L, Glucose 68, Calcium 6.8 L, Phosphorus 2.7, Magnesium 1.7, Total Bilirubin 2.2 H, AST 84 H, ALT 91 H, Albumin 2.0 L, CBC w Diff MAN DIFF ORDERED, RBC 3.23 L, MCV 83.7, MCH 27.2, RDW 15.7 H, MPV 8.8, Gran % 96.7 H, Lymphocytes % 3.0 L, Monocytes % 0.1 L, Eosinophils % 0.1, Basophils % 0.1, Absolute Granulocytes 27.8 H, Segmented Neutrophils 78 H, Band Neutrophils 10 H, Absolute Lymphocytes 0.9 L, Lymphocytes 4 L, Monocytes 6, Absolute Monocytes 0 L, Eosinophils 1, Absolute Eosinophils 0, Absolute Basophils 0, Metamyelocytes 1, Platelet Estimate ADEQUATE, Polychromasia 1+, Hypochromic-Microcytic 1+, Anisocytosis 1+, Blaine Cells 1+, Elliptocytes 1+, PUBS MCHC 32.5 L 02/28/17 2010: Anion Gap 12, Estimated GFR 37 L, BUN/Creatinine Ratio 31.4 H, CBC w Diff MAN DIFF ORDERED, RBC 3.14 L, MCV 83.8, MCH 27.6, RDW 15.3 H, MPV 9.6, Gran % 97.0 H, Lymphocytes % 2.4 L, Monocytes % 0.5 L, Eosinophils % 0.1, Basophils % 0, Absolute Granulocytes 28.9 H, Segmented Neutrophils 97 H, Absolute Lymphocytes 0.7 L, Lymphocytes 2 L, Monocytes 1 L, Absolute Monocytes 0.1, Absolute Eosinophils 0, Absolute Basophils 0, Nucleated RBCs 1 H, Platelet Estimate ADEQUATE, Hypochromic-Microcytic 1+, Poikilocytosis 1+, Anisocytosis 1+, Target Cells 1+, PUBS MCHC 33.0 02/28/17 1250: pH 7.47 H, pCO2 30 L, pO2 73 L, HCO3 22, ABG O2 Sat (Measured) 95.0 L, P-50 (Temp Corrected) NO, Carboxyhemoglobin 1.0 L, O2 Concentration % 35%, Temperature 98.6, O2 Delivery Method TPIECE, Phlebotomy Draw Site R ART LINE 02/28/17 1000: Lactic Acid 1.5, CBC w Diff MAN DIFF ORDERED, RBC 3.17 L, MCV 83.3, MCH 27.8, RDW 15.3 H, MPV 8.8, Gran % 95.9 H, Lymphocytes % 2.3 L, Monocytes % 1.7, Eosinophils % 0, Basophils % 0.1, Absolute Granulocytes 31.7 H, Absolute Lymphocytes 0.8 L, Absolute Monocytes 0.6, Absolute Eosinophils 0, Absolute Basophils 0, Polychromasia 1+, Anisocytosis 1+, PUBS MCHC 33.3 Impression/Plan Impression/Plan Impression/Plan: 1. Septic shock secondary to abdominal perforation with peritonitis. 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 She also had takedown of splenic flexure, left oophorectomy and skin biopsy of the abdomen. 2. Respiratory failure, on mechanical ventilation with evidence of bilateral pulmonary infiltrates suggestive of atelectasis versus aspiration. 3. Severe metabolic acidosis secondary to peritonitis/septic shock. 4. Acute kidney injury, possible ATN due to prolonged hypotension. 5. Severe lactic acidosis, again secondary to septic shock. This is improving with IV fluid rehydration. 6. Transaminitis secondary to septic shock. 7. Anemia, status post transfusion. 8. Urine culture positive for Escherichia coli, pansensitive. Recommendations: * Continue with weaning trials. * Will extubate if parameters are acceptable. * Follow up nephrology recommendations. * Continue to follow up culture data. * Continue IV Unasyn and fluconasole per ID recommendations. * Continue with pain control. * Ventilator bundle/DVT and GI prophylaxis at all times. * Continue all supportive care. * The patient is critically ill and needs close follow-up. I asked the housestaff to contact me should the patient's condition change or deteriorate.
--- NOTE | 2017-03-01 10:47 | PN- Infect Dx ---
Subjective Subjective: MAXIMUM TEMPERATURE 101.2. She does not offer any complaints. Objective Last 24 Hrs of Vital Signs/I&O Vital Signs Date Time Temp Pulse Resp B/P B/P Pulse O2 O2 Flow FiO2 Mean Ox Delivery Rate 03/01 1000 35 03/01 0800 99.7 78 21 150/60 95 Ventilator 35% 03/01 0626 95 Ventilator 35% 03/01 0546 35 03/01 0101 35 03/01 0042 95 Ventilator 35% 02/28 2134 99.8 02/28 2000 94 Ventilator 35% 02/28 1957 35 02/28 1955 101.2 02/28 1712 35 02/28 1600 95 Ventilator 35% 02/28 1600 99.4 88 21 136/64 95 Ventilator 35% 02/28 1424 35 02/28 1200 95 T Piece 35% 02/28 1117 35 Intake & Output 03/01 1600 03/01 0800 03/01 0000 Intake Total 400 2150 Output Total 2900 2570 Balance -2500 -420 Intake, IV 400 2150 Intake, Oral 0 Output, 1800 1370 Drainage Output, 50 100 Gastric Drainage Output, Stool 0 Output, Urine 1050 1100 Physical Exam Other Physical Findings: She is awake and alert, appearing comfortable in no acute distress on the ventilator Neck right IJ triple-lumen catheter with no inflammation at the site Lungs are clear Heart regular rhythm with no murmur Abdomen is soft, nontender with positive bowel sounds; stool in the colostomy; stoma felt to be viable Extremities right greater than left lower extremity edema, decreased from previous exams Pete catheter remains in place Results Last 24 Hours of Lab Results: Laboratory Tests 03/01 Chemistry Sodium (137 - 145 mmol/L) 147 H 146 H Potassium (3.5 - 5.1 mmol/L) 3.5 3.4 L Chloride (98 - 107 mmol/L) 114 H 113 H Carbon Dioxide (22 - 30 mmol/L) 21 L 21 L Anion Gap (5 - 16) 13 12 BUN (7 - 17 mg/dL) 42 H 44 H Creatinine (0.5 - 1.0 mg/dL) 1.3 H 1.4 H Estimated GFR (>60 ml/min) 40 L 37 L BUN/Creatinine Ratio (7 - 25 %) 31.4 H Glucose (65 - 99 mg/dL) 68 Calcium (8.4 - 10.2 mg/dL) 6.8 L Phosphorus (2.5 - 4.5 mg/dL) 2.7 Magnesium (1.6 - 2.3 mg/dL) 1.7 Total Bilirubin (0.2 - 1.3 mg/dL) 2.2 H AST (14 - 36 U/L) 84 H ALT (9 - 52 U/L) 91 H Albumin (3.5 - 5.0 g/dL) 2.0 L Hematology CBC w Diff MAN DIFF ORDERED MAN DIFF ORDERED WBC (4.8 - 10.8 /CUMM) 28.8 H 29.8 H RBC (4.20 - 5.40 /CUMM) 3.23 L 3.14 L Hgb (12.0 - 16.0 G/DL) 8.8 L 8.7 L Hct (37 - 47 %) 27.0 L 26.3 L MCV (81.0 - 99.0 FL) 83.7 83.8 MCH (27.0 - 31.0 PG) 27.2 27.6 RDW (11.5 - 14.5 %) 15.7 H 15.3 H Plt Count (130 - 400 /CUMM) 162 160 MPV (7.4 - 10.4 FL) 8.8 9.6 Gran % (42.2 - 75.2 %) 96.7 H 97.0 H Lymphocytes % (20.5 - 51.1 %) 3.0 L 2.4 L Monocytes % (1.7 - 9.3 %) 0.1 L 0.5 L Eosinophils % (0 - 5 %) 0.1 0.1 Basophils % (0.0 - 2.0 %) 0.1 0 Absolute Granulocytes (1.4 - 6.5 /CUMM) 27.8 H 28.9 H Segmented Neutrophils (42.2 - 75.2 %) 78 H 97 H Band Neutrophils (0.0 - 5.0 %) 10 H Absolute Lymphocytes (1.2 - 3.4 /CUMM) 0.9 L 0.7 L Lymphocytes (20.5 - 51.1 %) 4 L 2 L Monocytes (1.7 - 9.3 %) 6 1 L Absolute Monocytes (0.10 - 0.60 /CUMM) 0 L 0.1 Eosinophils (0 - 5.0 %) 1 Absolute Eosinophils (0.0 - 0.7 /CUMM) 0 0 Absolute Basophils (0.0 - 0.2 /CUMM) 0 0 Metamyelocytes (0.0 - 1.0 %) 1 Nucleated RBCs (0.0 - 0.0 /100WBC) 1 H Platelet Estimate (ADEQUATE) ADEQUATE ADEQUATE Polychromasia 1+ Hypochromic-Microcytic 1+ 1+ Poikilocytosis 1+ Anisocytosis 1+ 1+ Target Cells 1+ Dillon Cells 1+ Elliptocytes 1+ PUBS MCHC (33.0 - 37.0 G/DL) 32.5 L 33.0 02/28 1250 Blood Gas pH (7.35 - 7.45 PH) 7.47 H pCO2 (35 - 45 TORR) 30 L pO2 (80 - 100 TORR) 73 L HCO3 (21 - 28 MEQ/L) 22 ABG O2 Sat (Measured) (>96.0 %) 95.0 L P-50 (Temp Corrected) NO Carboxyhemoglobin (1.5 - 5.0 %) 1.0 L O2 Concentration % 35% Temperature (97.0 - 100.0 FARH) 98.6 O2 Delivery Method TPIECE Miscellaneous Phlebotomy Draw Site R ART LINE Last 24 Hours of Caleb Results: Blood cultures February 26 negative Blood cultures February 28 negative OR culture February 26 positive for mixed anaerobic gram negative rods, anaerobic gram-positive rods, alpha strep, Escherichia coli and yeast not Olimpia albicans Sputum culture February 28 moderate growth of yeast Urine culture February 28 pending Recent Imaging Studies: Chest x-ray March 01 reveals increased bibasilar opacities, with small bilateral layering pleural effusions Assessment/Plan Impression: Overall improved, with blood pressure stable off pressors, and with her respiratory status also stable, with possible extubation planned for later today , though she was febrile last night and white blood cell count remains elevated now 3 days status 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 She is now on Unasyn and Fluconazole for polymicrobial sepsis, with Clostridium and Escherichia coli isolated from the blood cultures and with these organisms, as well as alpha strep, other anaerobes and yeast, isolated from the OR cultures. The yeast may be a non-albicans species and it has been sent out for identification and sensitivities. Her renal failure continues to improve and her liver enzymes, other than her bilirubin, are decreasing, suggesting resolution of her sepsis. The etiology of her recent drop in H&H is unclear, with guaiac positive stools suggesting a GI source, but her H&H is stable. She appears quite fluid overloaded, and she is now on Lasix. She remains off Heparin, status post recent diagnosis of a right lower extremity DVT preop. Suggestion: 1. Further management with regard to anticoagulation per the critical care team and Surgery 2. Further management of her fluid status per Renal 3. Further evaluation regarding her presumed GI bleed per Medicine 4. Follow-up final OR cultures, ID of the yeast and pathology 5. Continue Unasyn and Fluconazole pending above
--- NOTE | 2017-03-01 13:26 | PN- Nephrology ---
Assessment/Plan Assessment: 1. SEN secondary to sepsis - improved with improved hemodynamics 2. Status post laparotomy with sigmoid colectomy, end colostomy, takedown of a colovesical fistula and left oophorectomy. 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 MARYELLEN drainage remains high with persistent leukocytosis 3. Hypernatremia - mild 4. Respiratory alkalosis Suggestion: 1. Suggest D5W at 50-75 mL per hour 2. IV Lasix as needed 3. Can send MARYELLEN drainage for a BUN level in order to ascertain whether this is in fact a urinary leak 4. Antibiotic therapy per ID Subjective Subjective: Patient continues to be awake, alert, intubated and vented. She apparently is having high output from her MARYELLEN drain which was intensified after she received intravenous Lasix suggesting the possibility of a urinary tract fistula or leak. She continues to have leukocytosis with a temp of 99.7 today, 101.2 yesterday. Renal function has actually improved with creatinine down to 1.3. Arterial blood gases consistent with a respiratory alkalosis. Finally, serum sodium is drifted up to 147. Objective Vital Signs and I&Os Vital Signs Date Time Temp Pulse Resp B/P B/P Pulse O2 O2 Flow FiO2 Mean Ox Delivery Rate 03/01 1200 96 T Piece 35% 03/01 1000 35 03/01 0800 95 Ventilator 35% 03/01 0800 99.7 78 21 150/60 95 Ventilator 35% 03/01 0626 95 Ventilator 35% 03/01 0546 35 03/01 0101 35 03/01 0042 95 Ventilator 35% 02/28 2134 99.8 02/28 1999 94 Ventilator 35% 02/28 195 35 02/28 195 101.2 02/28 1712 35 02/28 1600 95 Ventilator 35% 02/28 1600 99.4 88 21 136/64 95 Ventilator 35% 02/28 1424 35 Intake & Output 03/01 1600 03/01 0400 02/28 1600 02/28 0400 02/27 1600 02/27 0400 Intake Total 400 2150 4637 1928 4801 5886 Output Total 2900 2570 1380 480 552 500 Balance -2500 -420 3257 1448 4249 5386 Intake, Blood 1070 350 Product Intake, IV 400 2150 3567 1928 4451 5886 Intake, Oral 0 0 0 0 Intake, Other 0 0 Number 1 1 Bowel Movements Output, Chest 200 Tube Drainage Output, 1800 1370 675 190 200 Drainage Output, 50 100 300 400 Gastric Drainage Output, Other 50 Output, Stool 0 80 205 2 0 Output, Urine 1050 1100 325 85 150 50 Patient 195 lb 200 lb Weight Weight Bed scale Bed scale Measurement Method Physical Exam: General: Well-developed intubated and vented white female in no acute distress Skin: No rash or jaundice HEENT: Conjunctivae pale, sclerae anicteric, intubated Neck: Without masses, no supraclavicular or cervical adenopathy Chest: Clear anterolaterally Heart: Regular rate and rhythm without S3 or rub Abdomen: Soft, mild diffuse tenderness, MARYELLEN drain in place, left lower quadrant colostomy Extremities: Without cyanosis. 1-2+ lower extremity edema Neuro: Awake, alert and responsive. No focal findings, no asterixis or myoclonus Results Pertinent Lab Results: Laboratory Tests 03/01 03/01 1220 0350 Blood Gas pH (7.35 - 7.45 PH) 7.51 H pCO2 (35 - 45 TORR) 18 L pO2 (80 - 100 TORR) 121 H HCO3 (21 - 28 MEQ/L) 14 L ABG O2 Sat (Measured) (>96.0 %) 97.0 Carboxyhemoglobin (1.5 - 5.0 %) 0.1 L O2 Concentration % 35% O2 Delivery Method T-PIECE Chemistry Sodium (137 - 145 mmol/L) 147 H Potassium (3.5 - 5.1 mmol/L) 3.5 Chloride (98 - 107 mmol/L) 114 H Carbon Dioxide (22 - 30 mmol/L) 21 L Anion Gap (5 - 16) 13 BUN (7 - 17 mg/dL) 42 H Creatinine (0.5 - 1.0 mg/dL) 1.3 H Estimated GFR (>60 ml/min) 40 L Glucose (65 - 99 mg/dL) 68 Calcium (8.4 - 10.2 mg/dL) 6.8 L Phosphorus (2.5 - 4.5 mg/dL) 2.7 Magnesium (1.6 - 2.3 mg/dL) 1.7 Total Bilirubin (0.2 - 1.3 mg/dL) 2.2 H AST (14 - 36 U/L) 84 H ALT (9 - 52 U/L) 91 H Albumin (3.5 - 5.0 g/dL) 2.0 L Hematology CBC w Diff MAN DIFF ORDERED WBC (4.8 - 10.8 /CUMM) 28.8 H RBC (4.20 - 5.40 /CUMM) 3.23 L Hgb (12.0 - 16.0 G/DL) 8.8 L Hct (37 - 47 %) 27.0 L MCV (81.0 - 99.0 FL) 83.7 MCH (27.0 - 31.0 PG) 27.2 RDW (11.5 - 14.5 %) 15.7 H Plt Count (130 - 400 /CUMM) 162 MPV (7.4 - 10.4 FL) 8.8 Gran % (42.2 - 75.2 %) 96.7 H Lymphocytes % (20.5 - 51.1 %) 3.0 L Monocytes % (1.7 - 9.3 %) 0.1 L Eosinophils % (0 - 5 %) 0.1 Basophils % (0.0 - 2.0 %) 0.1 Absolute Granulocytes (1.4 - 6.5 /CUMM) 27.8 H Segmented Neutrophils (42.2 - 75.2 %) 78 H Band Neutrophils (0.0 - 5.0 %) 10 H Absolute Lymphocytes (1.2 - 3.4 /CUMM) 0.9 L Lymphocytes (20.5 - 51.1 %) 4 L Monocytes (1.7 - 9.3 %) 6 Absolute Monocytes (0.10 - 0.60 /CUMM) 0 L Eosinophils (0 - 5.0 %) 1 Absolute Eosinophils (0.0 - 0.7 /CUMM) 0 Absolute Basophils (0.0 - 0.2 /CUMM) 0 Metamyelocytes (0.0 - 1.0 %) 1 Platelet Estimate (ADEQUATE) ADEQUATE Polychromasia 1+ Hypochromic-Microcytic 1+ Anisocytosis 1+ Cicero Cells 1+ Elliptocytes 1+ PUBS MCHC (33.0 - 37.0 G/DL) 32.5 L Miscellaneous Phlebotomy Draw Site RIGHT A-LINE 02/28 1250 Blood Gas pH (7.35 - 7.45 PH) 7.47 H pCO2 (35 - 45 TORR) 30 L pO2 (80 - 100 TORR) 73 L HCO3 (21 - 28 MEQ/L) 22 ABG O2 Sat (Measured) (>96.0 %) 95.0 L P-50 (Temp Corrected) NO Carboxyhemoglobin (1.5 - 5.0 %) 1.0 L O2 Concentration % 35% Temperature (97.0 - 100.0 FARH) 98.6 O2 Delivery Method TPIECE Chemistry Sodium (137 - 145 mmol/L) 146 H Potassium (3.5 - 5.1 mmol/L) 3.4 L Chloride (98 - 107 mmol/L) 113 H Carbon Dioxide (22 - 30 mmol/L) 21 L Anion Gap (5 - 16) 12 BUN (7 - 17 mg/dL) 44 H Creatinine (0.5 - 1.0 mg/dL) 1.4 H Estimated GFR (>60 ml/min) 37 L BUN/Creatinine Ratio (7 - 25 %) 31.4 H Hematology CBC w Diff MAN DIFF ORDERED WBC (4.8 - 10.8 /CUMM) 29.8 H RBC (4.20 - 5.40 /CUMM) 3.14 L Hgb (12.0 - 16.0 G/DL) 8.7 L Hct (37 - 47 %) 26.3 L MCV (81.0 - 99.0 FL) 83.8 MCH (27.0 - 31.0 PG) 27.6 RDW (11.5 - 14.5 %) 15.3 H Plt Count (130 - 400 /CUMM) 160 MPV (7.4 - 10.4 FL) 9.6 Gran % (42.2 - 75.2 %) 97.0 H Lymphocytes % (20.5 - 51.1 %) 2.4 L Monocytes % (1.7 - 9.3 %) 0.5 L Eosinophils % (0 - 5 %) 0.1 Basophils % (0.0 - 2.0 %) 0 Absolute Granulocytes (1.4 - 6.5 /CUMM) 28.9 H Segmented Neutrophils (42.2 - 75.2 %) 97 H Absolute Lymphocytes (1.2 - 3.4 /CUMM) 0.7 L Lymphocytes (20.5 - 51.1 %) 2 L Monocytes (1.7 - 9.3 %) 1 L Absolute Monocytes (0.10 - 0.60 /CUMM) 0.1 Absolute Eosinophils (0.0 - 0.7 /CUMM) 0 Absolute Basophils (0.0 - 0.2 /CUMM) 0 Nucleated RBCs (0.0 - 0.0 /100WBC) 1 H Platelet Estimate (ADEQUATE) ADEQUATE Hypochromic-Microcytic 1+ Poikilocytosis 1+ Anisocytosis 1+ Target Cells 1+ PUBS MCHC (33.0 - 37.0 G/DL) 33.0 Miscellaneous Phlebotomy Draw Site R ART LINE 02/28 02/28 02/28 1000 0700 0425 Blood Gas pH (7.35 - 7.45 PH) 7.52 H pCO2 (35 - 45 TORR) 27 L pO2 (80 - 100 TORR) 90 HCO3 (21 - 28 MEQ/L) 21 ABG O2 Sat (Measured) (>96.0 %) 96.0 P-50 (Temp Corrected) N Carboxyhemoglobin (1.5 - 5.0 %) 0.4 L O2 Concentration % .35 Respiration Rate (BPM) 20 O2 Delivery Method VENT Vent Mode A/C Expiratory Pressure (CMH2O/P) 5 Tidal Volume (CC) 500 Chemistry Lactic Acid (0.7 - 2.1 mmol/L) 1.5 2.4 H Hematology CBC w Diff MAN DIFF ORDERED WBC (4.8 - 10.8 /CUMM) 33.0 *H RBC (4.20 - 5.40 /CUMM) 3.17 L Hgb (12.0 - 16.0 G/DL) 8.8 L Hct (37 - 47 %) 26.4 L MCV (81.0 - 99.0 FL) 83.3 MCH (27.0 - 31.0 PG) 27.8 RDW (11.5 - 14.5 %) 15.3 H Plt Count (130 - 400 /CUMM) 164 MPV (7.4 - 10.4 FL) 8.8 Gran % (42.2 - 75.2 %) 95.9 H Lymphocytes % (20.5 - 51.1 %) 2.3 L Monocytes % (1.7 - 9.3 %) 1.7 Eosinophils % (0 - 5 %) 0 Basophils % (0.0 - 2.0 %) 0.1 Absolute Granulocytes (1.4 - 6.5 /CUMM) 31.7 H Absolute Lymphocytes (1.2 - 3.4 /CUMM) 0.8 L Absolute Monocytes (0.10 - 0.60 /CUMM) 0.6 Absolute Eosinophils (0.0 - 0.7 /CUMM) 0 Absolute Basophils (0.0 - 0.2 /CUMM) 0 Polychromasia 1+ Anisocytosis 1+ PUBS MCHC (33.0 - 37.0 G/DL) 33.3 Miscellaneous Phlebotomy Draw Site [place] 02/28 02/28 6596 2357 Chemistry Sodium (137 - 145 mmol/L) 143 Potassium (3.5 - 5.1 mmol/L) 3.8 Chloride (98 - 107 mmol/L) 109 H Carbon Dioxide (22 - 30 mmol/L) 22 Anion Gap (5 - 16) 12 BUN (7 - 17 mg/dL) 51 H Creatinine (0.5 - 1.0 mg/dL) 1.6 H Estimated GFR (>60 ml/min) 32 L Glucose (65 - 99 mg/dL) 120 H Lactic Acid (0.7 - 2.1 mmol/L) 2.8 H Calcium (8.4 - 10.2 mg/dL) 6.5 L Phosphorus (2.5 - 4.5 mg/dL) 3.2 Magnesium (1.6 - 2.3 mg/dL) 1.8 Total Bilirubin (0.2 - 1.3 mg/dL) 1.7 H AST (14 - 36 U/L) 94 H ALT (9 - 52 U/L) 104 H Troponin I (< 0.11 ng/ml) 0.05 Albumin (3.5 - 5.0 g/dL) 1.5 L Hematology CBC w Diff MAN DIFF ORDERED WBC (4.8 - 10.8 /CUMM) 30.7 *H RBC (4.20 - 5.40 /CUMM) 2.83 L Hgb (12.0 - 16.0 G/DL) 7.9 L Hct (37 - 47 %) 23.9 L MCV (81.0 - 99.0 FL) 84.5 MCH (27.0 - 31.0 PG) 27.8 RDW (11.5 - 14.5 %) 15.7 H Plt Count (130 - 400 /CUMM) 176 MPV (7.4 - 10.4 FL) 8.8 Gran % (42.2 - 75.2 %) 95.7 H Lymphocytes % (20.5 - 51.1 %) 2.8 L Monocytes % (1.7 - 9.3 %) 1.5 L Eosinophils % (0 - 5 %) 0 Basophils % (0.0 - 2.0 %) 0 Absolute Granulocytes (1.4 - 6.5 /CUMM) 29.4 H Segmented Neutrophils (42.2 - 75.2 %) 96 H Band Neutrophils (0.0 - 5.0 %) 3 Absolute Lymphocytes (1.2 - 3.4 /CUMM) 0.8 L Monocytes (1.7 - 9.3 %) 1 L Absolute Monocytes (0.10 - 0.60 /CUMM) 0.5 Absolute Eosinophils (0.0 - 0.7 /CUMM) 0 Absolute Basophils (0.0 - 0.2 /CUMM) 0 Platelet Estimate (ADEQUATE) ADEQUATE Hypochromic-Microcytic 1+ Poikilocytosis 1+ PUBS MCHC (33.0 - 37.0 G/DL) 32.9 L 02/27 02/27 02/27 2230 1935 1830 Chemistry Sodium (137 - 145 mmol/L) 142 Potassium (3.5 - 5.1 mmol/L) 3.9 Chloride (98 - 107 mmol/L) 111 H Carbon Dioxide (22 - 30 mmol/L) 22 Anion Gap (5 - 16) 9 BUN (7 - 17 mg/dL) 49 H Creatinine (0.5 - 1.0 mg/dL) 1.7 H Estimated GFR (>60 ml/min) 30 L Glucose (65 - 99 mg/dL) 161 H Lactic Acid (0.7 - 2.1 mmol/L) 2.2 H 2.9 H Calcium (8.4 - 10.2 mg/dL) 6.3 L Phosphorus (2.5 - 4.5 mg/dL) 3.4 Magnesium (1.6 - 2.3 mg/dL) 1.8 Iron (37 - 170 ug/dL) 35 L TIBC (265 - 497 ug/dL) 102 L Ferritin (11.1 - 264 ng/mL) 957.0 H Total Bilirubin (0.2 - 1.3 mg/dL) 0.6 AST (14 - 36 U/L) 110 H ALT (9 - 52 U/L) 115 H Troponin I (< 0.11 ng/ml) 0.06 Albumin (3.5 - 5.0 g/dL) 1.3 L Hematology CBC w Diff MAN DIFF ORDERED WBC (4.8 - 10.8 /CUMM) 25.0 H RBC (4.20 - 5.40 /CUMM) 2.17 L Hgb (12.0 - 16.0 G/DL) 5.6 *L Hct (37 - 47 %) 17.9 *L MCV (81.0 - 99.0 FL) 82.7 MCH (27.0 - 31.0 PG) 26.0 L RDW (11.5 - 14.5 %) 17.7 H Plt Count (130 - 400 /CUMM) 202 MPV (7.4 - 10.4 FL) 8.4 Gran % (42.2 - 75.2 %) 94.7 H Lymphocytes % (20.5 - 51.1 %) 3.3 L Monocytes % (1.7 - 9.3 %) 2.0 Eosinophils % (0 - 5 %) 0 Basophils % (0.0 - 2.0 %) 0 Absolute Granulocytes (1.4 - 6.5 /CUMM) 23.6 H Segmented Neutrophils (42.2 - 75.2 %) 95 H Band Neutrophils (0.0 - 5.0 %) 2 Absolute Lymphocytes (1.2 - 3.4 /CUMM) 0.8 L Lymphocytes (20.5 - 51.1 %) 3 L Absolute Monocytes (0.10 - 0.60 /CUMM) 0.5 Absolute Eosinophils (0.0 - 0.7 /CUMM) 0 Absolute Basophils (0.0 - 0.2 /CUMM) 0 Platelet Estimate (ADEQUATE) VERIFIED BY SMEAR Normochromic RBCs VERIFIED Anisocytosis 1+ PUBS MCHC (33.0 - 37.0 G/DL) 31.5 L Other Body Source Fld Total RBCs Counted (%) 100 Urines Ur Random Creatinine (mg/dL) 49.5 Ur Random Sodium (30 - 90 mmol/L) 36 Ur Random Potassium (mmol/L) 45.8 Fraction Sodium Excret (<1% %) 0.8 02/27 02/27 02/27 02/27 02/27 1505 1320 0620 0500 0410 Blood Gas pH (7.35 - 7.45 PH) 7.50 H pCO2 (35 - 45 TORR) 23 L pO2 (80 - 100 TORR) 94 HCO3 (21 - 28 MEQ/L) 17 L ABG O2 Sat (Measured) (>96.0 %) 96.0 Carboxyhemoglobin (1.5 - 5.0 %) 1.1 L O2 Concentration % 40 Respiration Rate (BPM) 20 O2 Delivery Method VENT Vent Mode AC Expiratory Pressure (CMH2O/P) 5 Tidal Volume (CC) 500 Chemistry Sodium Cancelled Potassium Cancelled Chloride Cancelled Carbon Dioxide Cancelled Anion Gap Cancelled BUN Cancelled Creatinine Cancelled Glucose Cancelled Lactic Acid (0.7 - 2.1 mmol/L) 4.3 H 5.2 H 6.5 H Calcium Cancelled Phosphorus Cancelled Magnesium Cancelled Total Bilirubin Cancelled AST Cancelled ALT Cancelled Albumin Cancelled Miscellaneous Phlebotomy Draw Site [place] 02/27 02/27 02/27 0410 0311 0245 Blood Gas pH (7.35 - 7.45 PH) 7.44 pCO2 (35 - 45 TORR) 23 L pO2 (80 - 100 TORR) 122 H HCO3 (21 - 28 MEQ/L) 15 L ABG O2 Sat (Measured) (>96.0 %) 97.0 Carboxyhemoglobin (1.5 - 5.0 %) 0.9 L O2 Concentration % 50 Respiration Rate (BPM) 26 O2 Delivery Method VENT Vent Mode AC Expiratory Pressure (CMH2O/P) 5 Tidal Volume (CC) 500 Chemistry Sodium (137 - 145 mmol/L) 140 Potassium (3.5 - 5.1 mmol/L) 4.6 Chloride (98 - 107 mmol/L) 107 Carbon Dioxide (22 - 30 mmol/L) 18 L Anion Gap (5 - 16) 15 BUN (7 - 17 mg/dL) 41 H Creatinine (0.5 - 1.0 mg/dL) 1.5 H Estimated GFR (>60 ml/min) 34 L Glucose (65 - 99 mg/dL) 208 H Calcium (8.4 - 10.2 mg/dL) 6.5 L Phosphorus (2.5 - 4.5 mg/dL) 4.7 H Magnesium (1.6 - 2.3 mg/dL) 1.7 Total Bilirubin (0.2 - 1.3 mg/dL) 1.2 AST (14 - 36 U/L) 382 H ALT (9 - 52 U/L) 172 H Troponin I (< 0.11 ng/ml) 0.05 Albumin (3.5 - 5.0 g/dL) 1.5 L Hematology CBC w Diff MAN DIFF ORDERED Cancelled WBC (4.8 - 10.8 /CUMM) 27.4 H Cancelled RBC (4.20 - 5.40 /CUMM) 2.98 L Cancelled Hgb (12.0 - 16.0 G/DL) 8.0 L Cancelled Hct (37 - 47 %) 24.8 L Cancelled MCV (81.0 - 99.0 FL) 83.1 Cancelled MCH (27.0 - 31.0 PG) 26.7 L Cancelled RDW (11.5 - 14.5 %) 18.4 H Cancelled Plt Count (130 - 400 /CUMM) 315 Cancelled MPV (7.4 - 10.4 FL) 8.9 Cancelled Gran % (42.2 - 75.2 %) 93.9 H Lymphocytes % (20.5 - 51.1 %) 3.4 L Monocytes % (1.7 - 9.3 %) 2.1 Eosinophils % (0 - 5 %) 0.6 Basophils % (0.0 - 2.0 %) 0 Absolute Granulocytes (1.4 - 6.5 /CUMM) 25.7 H Segmented Neutrophils (42.2 - 75.2 %) 86 H Band Neutrophils (0.0 - 5.0 %) 9 H Absolute Lymphocytes (1.2 - 3.4 /CUMM) 0.9 L Lymphocytes (20.5 - 51.1 %) 3 L Monocytes (1.7 - 9.3 %) 2 Absolute Monocytes (0.10 - 0.60 /CUMM) 0.6 Absolute Eosinophils (0.0 - 0.7 /CUMM) 0.2 Absolute Basophils (0.0 - 0.2 /CUMM) 0 Platelet Estimate (ADEQUATE) ADEQUATE Hypochromic-Microcytic 2+ Anisocytosis 1+ Target Cells 1+ Stomatocytes 1+ Cicero Cells 1+ Elliptocytes 1+ PUBS MCHC (33.0 - 37.0 G/DL) 32.2 L Cancelled Miscellaneous Phlebotomy Draw Site [place] 02/27 02/26 02/26 02/26 0045 2310 2135 2125 Blood Gas pH (7.35 - 7.45 PH) 7.39 7.19 *L pCO2 (35 - 45 TORR) 25 L 28 L pO2 (80 - 100 TORR) 139 H 90 HCO3 (21 - 28 MEQ/L) 15 L 11 L ABG O2 Sat (Measured) (>96.0 %) 98.0 92.0 L P-50 (Temp Corrected) Y Y Carboxyhemoglobin (1.5 - 5.0 %) 0.8 L 0.3 L O2 Concentration % 50% 50% Temperature (97.0 - 100.0 FARH) 97.7 97.2 Respiration Rate (BPM) 26 20 O2 Delivery Method VENT VENT Vent Mode CMV CMV Expiratory Pressure (CMH2O/P) 5 5 Tidal Volume (CC) 500 500 Chemistry Lactic Acid (0.7 - 2.1 mmol/L) 7.7 H 10.3 H Miscellaneous Phlebotomy Draw Site [facility] 02/265 1905 Blood Gas pH (7.35 - 7.45 PH) 7.07 *L pCO2 (35 - 45 TORR) 42 pO2 (80 - 100 TORR) 355 H HCO3 (21 - 28 MEQ/L) 12 L ABG O2 Sat (Measured) (>96.0 %) 98.0 P-50 (Temp Corrected) Y Carboxyhemoglobin (1.5 - 5.0 %) 1.7 O2 Concentration % 100 Temperature (97.0 - 100.0 FARH) 95.8 L Respiration Rate (BPM) 12 O2 Delivery Method VENT Vent Mode AC Expiratory Pressure (CMH2O/P) 5 Tidal Volume (CC) 400 Chemistry Sodium (137 - 145 mmol/L) 142 Potassium (3.5 - 5.1 mmol/L) 4.8 Chloride (98 - 107 mmol/L) 110 H Carbon Dioxide (22 - 30 mmol/L) 12 L Anion Gap (5 - 16) 19 H BUN (7 - 17 mg/dL) 38 H Creatinine (0.5 - 1.0 mg/dL) 1.5 H Estimated GFR (>60 ml/min) 34 L Glucose (65 - 99 mg/dL) 47 *L Calcium (8.4 - 10.2 mg/dL) 7.1 L Phosphorus (2.5 - 4.5 mg/dL) 6.3 H Magnesium (1.6 - 2.3 mg/dL) 2.0 Total Bilirubin (0.2 - 1.3 mg/dL) 0.7 AST (14 - 36 U/L) 343 H ALT (9 - 52 U/L) 138 H Troponin I (< 0.11 ng/ml) 0.04 Albumin (3.5 - 5.0 g/dL) 1.6 L Coagulation APTT (25 - 37 SEC) 52 H Hematology CBC w Diff MAN DIFF ORDERED WBC (4.8 - 10.8 /CUMM) 35.7 *H RBC (4.20 - 5.40 /CUMM) 2.60 L Hgb (12.0 - 16.0 G/DL) 6.6 *L Hct (37 - 47 %) 21.4 L MCV (81.0 - 99.0 FL) 82.3 MCH (27.0 - 31.0 PG) 25.2 L RDW (11.5 - 14.5 %) 18.1 H Plt Count (130 - 400 /CUMM) 348 MPV (7.4 - 10.4 FL) 8.5 Gran % (42.2 - 75.2 %) 97.5 H Lymphocytes % (20.5 - 51.1 %) 2.1 L Monocytes % (1.7 - 9.3 %) 0.4 L Eosinophils % (0 - 5 %) 0 Basophils % (0.0 - 2.0 %) 0 Absolute Granulocytes (1.4 - 6.5 /CUMM) 34.8 H Segmented Neutrophils (42.2 - 75.2 %) 71 Band Neutrophils (0.0 - 5.0 %) 23 H Absolute Lymphocytes (1.2 - 3.4 /CUMM) 0.7 L Lymphocytes (20.5 - 51.1 %) 3 L Monocytes (1.7 - 9.3 %) 1 L Absolute Monocytes (0.10 - 0.60 /CUMM) 0.1 Absolute Eosinophils (0.0 - 0.7 /CUMM) 0 Absolute Basophils (0.0 - 0.2 /CUMM) 0 Metamyelocytes (0.0 - 1.0 %) 2 H Platelet Estimate (ADEQUATE) ADEQUATE Polychromasia 2+ Hypochromic-Microcytic 3+ Anisocytosis 1+ PUBS MCHC (33.0 - 37.0 G/DL) 30.6 L Miscellaneous Phlebotomy Draw Site RIGHT RADIAL 02/26 9350 Chemistry Lactic Acid (0.7 - 2.1 mmol/L) 9.5 H
--- NOTE | 2017-03-01 13:58 | PN- Att Addend ---
Attending Addendum Attending Brief Note Patient fairly stable except for a spike of temperature last evening. Her vital signs are stable she is off pressors.. Patient still intubated. Changes on physical. Her white count is still elevated. Appreciate surgery's infectious diseases and wrists input and recommendations. The Pete catheter still in place with stay there for a little while to the history of the fistula. Patient will try to wean off the ventilator. The renal and liver functions are improving, probably signed his sepsis is improving. Following hematocrit and hemoglobin. Continue treatment as per consultants now ON [facility] Intake & Output 03/01 1600 03/01 0400 02/28 1600 02/28 0400 02/27 1600 02/27 0400 Intake Total 400 2150 4637 1928 4801 5886 Output Total 2900 2570 1380 480 552 500 Balance -2500 -420 3257 1448 4249 5386 Intake, Blood 1070 350 Product Intake, IV 400 2150 3567 1928 4451 5886 Intake, Oral 0 0 0 0 Intake, Other 0 0 Number 1 1 Bowel Movements Output, Chest 200 Tube Drainage Output, 1800 1370 675 190 200 Drainage Output, 50 100 300 400 Gastric Drainage Output, Other 50 Output, Stool 0 80 205 2 0 Output, Urine 1050 1100 325 85 150 50 Patient 195 lb 200 lb Weight Weight Bed scale Bed scale Measurement Method Current Medications Sig/Jacobo Start time Last Medication Dose Route Stop Time Status Admin Acetaminophen 1,000 MG .STK-MED ONE 02/28 1946 DC IV 02/28 1947 Acetaminophen 1,000 MG Q12P PRN 02/24 0845 02/28 N/A 1 UNIT IV 1954 Albumin Human 12.5 GM Q6 02/27 1806 AC 03/01 IV 1202 Ampicillin Sodium/ 3,000 MG Q6 02/26 1200 AC 03/01 Sulbactam Sodium IV 1202 Sodium Chloride 100 ML Dextrose/Water 1,000 ML Q13H 03/01 1315 AC 03/01 IV 1331 Fluconazole 400 MG Q48 03/02 1000 AC Sodium Chloride 200 ML IV Fluconazole 400 MG Q2H 02/28 1200 DC 02/28 Sodium Chloride 200 ML IV 02/28 1559 1615 Furosemide 20 MG ONCE ONE 03/01 0900 DC 03/01 IV 03/01 0901 0908 Furosemide 20 MG ONCE ONE 02/28 2145 DC 02/28 IV 02/28 2146 2153 Furosemide 20 MG ONCE ONE 02/28 1500 DC 02/28 IV 02/28 1501 1504 Heparin Sodium 25,000 UNIT Q24H 03/01 1015 CAN (Porcine) IV Sodium Chloride 500 ML Magnesium Sulfate 1 GM ONCE ONE 03/01 1015 AC 03/01 Dextrose/Water 100 ML IV 03/01 1414 1050 Pantoprazole Sodium 40 MG DAILY 02/26 2038 AC 03/01 IV 0915 Potassium Chloride 20 MEQ Q1H 03/01 0745 DC 03/01 IV 03/01 0846 0908 Potassium Chloride 20 MEQ Q1H 02/28 2145 DC 03/01 IV 02/28 2246 0025 Sodium Chloride 1,000 ML BOLUS ONE 02/28 2014 DC 02/28 IV 02/28 2214 2044 Sodium Chloride 1,000 ML Q6H 02/27 0615 DC 02/28 IV 0622 Laboratory Tests 03/01/17 1322: Fluid Urea Nitrogen Pending, Fluid Creatinine Pending 03/01/17 1220: pH 7.51 H, pCO2 18 L, pO2 121 H, HCO3 14 L, ABG O2 Sat (Measured) 97.0, Carboxyhemoglobin 0.1 L, O2 Concentration % 35%, O2 Delivery Method T-PIECE, Phlebotomy Draw Site RIGHT A-LINE 03/01/17 0350: Anion Gap 13, Estimated GFR 40 L, Glucose 68, Calcium 6.8 L, Phosphorus 2.7, Magnesium 1.7, Total Bilirubin 2.2 H, AST 84 H, ALT 91 H, Albumin 2.0 L, CBC w Diff MAN DIFF ORDERED, RBC 3.23 L, MCV 83.7, MCH 27.2, RDW 15.7 H, MPV 8.8, Gran % 96.7 H, Lymphocytes % 3.0 L, Monocytes % 0.1 L, Eosinophils % 0.1, Basophils % 0.1, Absolute Granulocytes 27.8 H, Segmented Neutrophils 78 H, Band Neutrophils 10 H, Absolute Lymphocytes 0.9 L, Lymphocytes 4 L, Monocytes 6, Absolute Monocytes 0 L, Eosinophils 1, Absolute Eosinophils 0, Absolute Basophils 0, Metamyelocytes 1, Platelet Estimate ADEQUATE, Polychromasia 1+, Hypochromic-Microcytic 1+, Anisocytosis 1+, Durand Cells 1+, Elliptocytes 1+, PUBS MCHC 32.5 L 02/28/17 2010: Anion Gap 12, Estimated GFR 37 L, BUN/Creatinine Ratio 31.4 H, CBC w Diff MAN DIFF ORDERED, RBC 3.14 L, MCV 83.8, MCH 27.6, RDW 15.3 H, MPV 9.6, Gran % 97.0 H, Lymphocytes % 2.4 L, Monocytes % 0.5 L, Eosinophils % 0.1, Basophils % 0, Absolute Granulocytes 28.9 H, Segmented Neutrophils 97 H, Absolute Lymphocytes 0.7 L, Lymphocytes 2 L, Monocytes 1 L, Absolute Monocytes 0.1, Absolute Eosinophils 0, Absolute Basophils 0, Nucleated RBCs 1 H, Platelet Estimate ADEQUATE, Hypochromic-Microcytic 1+, Poikilocytosis 1+, Anisocytosis 1+, Target Cells 1+, PUBS MCHC 33.0 02/28/17 1250: pH 7.47 H, pCO2 30 L, pO2 73 L, HCO3 22, ABG O2 Sat (Measured) 95.0 L, P-50 (Temp Corrected) NO, Carboxyhemoglobin 1.0 L, O2 Concentration % 35%, Temperature 98.6, O2 Delivery Method TPIECE, Phlebotomy Draw Site R ART LINE 02/28/17 1000: Lactic Acid 1.5, CBC w Diff MAN DIFF ORDERED, RBC 3.17 L, MCV 83.3, MCH 27.8, RDW 15.3 H, MPV 8.8, Gran % 95.9 H, Lymphocytes % 2.3 L, Monocytes % 1.7, Eosinophils % 0, Basophils % 0.1, Absolute Granulocytes 31.7 H, Absolute Lymphocytes 0.8 L, Absolute Monocytes 0.6, Absolute Eosinophils 0, Absolute Basophils 0, Polychromasia 1+, Anisocytosis 1+, PUBS MCHC 33.3 02/28/17 0700: pH 7.52 H, pCO2 27 L, pO2 90, HCO3 21, ABG O2 Sat (Measured) 96.0, P-50 (Temp Corrected) N, Carboxyhemoglobin 0.4 L, O2 Concentration % .35, Respiration Rate 20, O2 Delivery Method VENT, Vent Mode A/C, Expiratory Pressure 5, Tidal Volume 500, Phlebotomy Draw Site [place] 02/28/17 0425: Lactic Acid 2.4 H 02/28/17 0425: Anion Gap 12, Estimated GFR 32 L, Glucose 120 H, Calcium 6.5 L, Phosphorus 3.2, Magnesium 1.8, Total Bilirubin 1.7 H, AST 94 H, ALT 104 H, Troponin I 0.05, Albumin 1.5 L, CBC w Diff MAN DIFF ORDERED, RBC 2.83 L, MCV 84.5, MCH 27.8, RDW 15.7 H, MPV 8.8, Gran % 95.7 H, Lymphocytes % 2.8 L, Monocytes % 1.5 L, Eosinophils % 0, Basophils % 0, Absolute Granulocytes 29.4 H, Segmented Neutrophils 96 H, Band Neutrophils 3, Absolute Lymphocytes 0.8 L, Monocytes 1 L, Absolute Monocytes 0.5, Absolute Eosinophils 0, Absolute Basophils 0, Platelet Estimate ADEQUATE, Hypochromic-Microcytic 1+, Poikilocytosis 1+, PUBS MCHC 32.9 L 02/28/17 0145: Lactic Acid 2.8 H 02/27/170: Anion Gap 9, Estimated GFR 30 L, Glucose 161 H, Lactic Acid 2.2 H, Calcium 6.3 L, Phosphorus 3.4, Magnesium 1.8, Iron 35 L, TIBC 102 L, Ferritin 957.0 H, Total Bilirubin 0.6, AST 110 H, ALT 115 H, Troponin I 0.06, Albumin 1.3 L, CBC w Diff MAN DIFF ORDERED, RBC 2.17 L, MCV 82.7, MCH 26.0 L, RDW 17.7 H, MPV 8.4, Gran % 94.7 H, Lymphocytes % 3.3 L, Monocytes % 2.0, Eosinophils % 0, Basophils % 0, Absolute Granulocytes 23.6 H, Segmented Neutrophils 95 H, Band Neutrophils 2, Absolute Lymphocytes 0.8 L, Lymphocytes 3 L, Absolute Monocytes 0.5, Absolute Eosinophils 0, Absolute Basophils 0, Platelet Estimate VERIFIED BY SMEAR, Normochromic RBCs VERIFIED, Anisocytosis 1+, PUBS MCHC 31.5 L, Fld Total RBCs Counted 100 02/27/17 1935: Lactic Acid 2.9 H 02/27/17 1830: Ur Random Creatinine 49.5, Ur Random Sodium 36, Ur Random Potassium 45.8, Fraction Sodium Excret 0.8 02/27/17 1505: Lactic Acid 4.3 H 02/27/17 1320: Lactic Acid 5.2 H 02/27/17 0620: pH 7.50 H, pCO2 23 L, pO2 94, HCO3 17 L, ABG O2 Sat (Measured) 96.0, Carboxyhemoglobin 1.1 L, O2 Concentration % 40, Respiration Rate 20, O2 Delivery Method VENT, Vent Mode AC, Expiratory Pressure 5, Tidal Volume 500, Phlebotomy Draw Site [place] 02/27/17 0500: Sodium Cancelled, Potassium Cancelled, Chloride Cancelled, Carbon Dioxide Cancelled, Anion Gap Cancelled, BUN Cancelled, Creatinine Cancelled, Glucose Cancelled, Calcium Cancelled, Phosphorus Cancelled, Magnesium Cancelled, Total Bilirubin Cancelled, AST Cancelled, ALT Cancelled, Albumin Cancelled 02/27/17 0410: Lactic Acid 6.5 H 02/27/17409: Anion Gap 15, Estimated GFR 34 L, Glucose 208 H, Calcium 6.5 L, Phosphorus 4.7 H, Magnesium 1.7, Total Bilirubin 1.2, AST 382 H, ALT 172 H, Troponin I 0.05, Albumin 1.5 L, CBC w Diff MAN DIFF ORDERED, RBC 2.98 L, MCV 83.1, MCH 26.7 L, RDW 18.4 H, MPV 8.9, Gran % 93.9 H, Lymphocytes % 3.4 L, Monocytes % 2.1, Eosinophils % 0.6, Basophils % 0, Absolute Granulocytes 25.7 H, Segmented Neutrophils 86 H, Band Neutrophils 9 H, Absolute Lymphocytes 0.9 L, Lymphocytes 3 L, Monocytes 2, Absolute Monocytes 0.6, Absolute Eosinophils 0.2, Absolute Basophils 0, Platelet Estimate ADEQUATE, Hypochromic-Microcytic 2+, Anisocytosis 1+, Target Cells 1+, Stomatocytes 1+, [place] Cells 1+, Elliptocytes 1 +, PUBS MCHC 32.2 L 02/27/17 0311: CBC w Diff Cancelled, WBC Cancelled, RBC Cancelled, Hgb Cancelled, Hct Cancelled , MCV Cancelled, MCH Cancelled, RDW Cancelled, Plt Count Cancelled, MPV Cancelled, PUBS MCHC Cancelled 02/27/17 0245: pH 7.44, pCO2 23 L, pO2 122 H, HCO3 15 L, ABG O2 Sat (Measured) 97.0, Carboxyhemoglobin 0.9 L, O2 Concentration % 50, Respiration Rate 26, O2 Delivery Method VENT, Vent Mode AC, Expiratory Pressure 5, Tidal Volume 500, Phlebotomy Draw Site [place] 02/27/17 0045: Lactic Acid 7.7 H 02/26/17 2310: pH 7.39, pCO2 25 L, pO2 139 H, HCO3 15 L, ABG O2 Sat (Measured) 98.0, P-50 ( Temp Corrected) Y, Carboxyhemoglobin 0.8 L, O2 Concentration % 50%, Temperature 97.7, Respiration Rate 26, O2 Delivery Method VENT, Vent Mode CMV, Expiratory Pressure 5, Tidal Volume 500, Phlebotomy Draw Site [place] 02/26/172134: pH 7.19 *L, pCO2 28 L, pO2 90, HCO3 11 L, ABG O2 Sat (Measured) 92.0 L, P-50 (Temp Corrected) Y, Carboxyhemoglobin 0.3 L, O2 Concentration % 50%, Temperature 97.2, Respiration Rate 20, O2 Delivery Method VENT, Vent Mode CMV, Expiratory Pressure 5, Tidal Volume 500, Phlebotomy Draw Site [place] 02/26/172124: Lactic Acid 10.3 H 02/26/172124: Anion Gap 19 H, Estimated GFR 34 L, Glucose 47 *L, Calcium 7.1 L, Phosphorus 6.3 H, Magnesium 2.0, Total Bilirubin 0.7, AST 343 H, ALT 138 H, Troponin I 0.04, Albumin 1.6 L, APTT 52 H, CBC w Diff MAN DIFF ORDERED, RBC 2.60 L, MCV 82.3, MCH 25.2 L, RDW 18.1 H, MPV 8.5, Gran % 97.5 H, Lymphocytes % 2.1 L, Monocytes % 0.4 L, Eosinophils % 0, Basophils % 0, Absolute Granulocytes 34.8 H, Segmented Neutrophils 71, Band Neutrophils 23 H, Absolute Lymphocytes 0.7 L , Lymphocytes 3 L, Monocytes 1 L, Absolute Monocytes 0.1, Absolute Eosinophils 0, Absolute Basophils 0, Metamyelocytes 2 H, Platelet Estimate ADEQUATE, Polychromasia 2+, Hypochromic-Microcytic 3+, Anisocytosis 1+, PUBS MCHC 30.6 L 02/26/171904: pH 7.07 *L, pCO2 42, pO2 355 H, HCO3 12 L, ABG O2 Sat (Measured) 98.0, P-50 ( Temp Corrected) Y, Carboxyhemoglobin 1.7, O2 Concentration % 100, Temperature 95.8 L, Respiration Rate 12, O2 Delivery Method VENT, Vent Mode AC, Expiratory Pressure 5, Tidal Volume 400, Phlebotomy Draw Site RIGHT [place] 02/26/17 1657: Lactic Acid 9.5 H Microbiology 02/29 2044 BLOOD: Blood Culture - RES 02/28 2029 BLOOD: Blood Culture - RES 02/28 2021 LOWER RESP: Respiratory Culture - RES YEAST 02/28 2021 LOWER RESP: Gram Stain - RES 02/28 2019 URINE ROUT: Urine Culture - RES YEAST 02/27 2344 URINE ROUT: Urine Culture - COMP 02/27 2124 BLOOD: Blood Culture - RES 02/26 2099 LOWER RESP: Respiratory Culture - CAN Cancelled: SPECIMEN NOT RECEIVED IN LABORATORY 02/26 2099 LOWER RESP: Gram Stain - CAN Cancelled: SPECIMEN NOT RECEIVED IN LABORATORY 02/26 1899 STOOL: Clostridium difficile Toxin A & B - COMP 02/26 1834 BODY FLUID: Body Fluid Culture - RES ALPHA STREP ESCHERICHIA COLI ANAEROBIC MIXED SHERRILL YEAST NOT SATNAM ALBICANS 02/26 1834 BODY FLUID: Gram Stain - RES 02/26 1400 URINE ROUT: Urine Culture - COMP Microbiology 02/29 2044 BLOOD: Blood Culture - RES 02/28 2029 BLOOD: Blood Culture - RES 02/28 2021 LOWER RESP: Respiratory Culture - RES YEAST 02/28 2021 LOWER RESP: Gram Stain - RES 02/28 2019 URINE ROUT: Urine Culture - RES YEAST 02/27 2344 URINE ROUT: Urine Culture - COMP 02/27 2124 BLOOD: Blood Culture - RES 02/26 2099 LOWER RESP: Respiratory Culture - CAN Cancelled: SPECIMEN NOT RECEIVED IN LABORATORY 02/26 2099 LOWER RESP: Gram Stain - CAN Cancelled: SPECIMEN NOT RECEIVED IN LABORATORY 02/26 190 STOOL: Clostridium difficile Toxin A & B - COMP 02/26 1834 BODY FLUID: Body Fluid Culture - RES ALPHA STREP ESCHERICHIA COLI ANAEROBIC MIXED SHERRILL YEAST NOT SATNAM ALBICANS 02/26 1834 BODY FLUID: Gram Stain - RES 02/26 1400 URINE ROUT: Urine Culture - COMP
[2017-03-01 16:00] VITALS: BP 150/70
[2017-03-01 23:59] VITALS: BP 140/64
[2017-03-02 05:08] LABS: ABSOLUTE BASOPHIL COUNT 0 /CUMM (0.0-0.2); ABSOLUTE EOSINOPHIL COUNT 0 /CUMM (0.0-0.7); ABSOLUTE GRANULOCYTE CT 20.2 /CUMM (1.4-6.5); ABSOLUTE LYMPH COUNT 0.6 /CUMM (1.2-3.4); ABSOLUTE MONOCYTE COUNT 0.5 /CUMM (0.10-0.60); BASOPHIL % 0 % (0.0-2.0); EOSINOPHIL % 0.2 % (0-5); GRANULOCYTE % 94.7 % (42.2-75.2); HEMATOCRIT 25.3 % (37-47); MEAN CORPUSCULAR HGB 27.5 PG (27.0-31.0); MEAN CORPUSCULAR HGB CONC 32.8 G/DL (33.0-37.0); MEAN PLATELET VOLUME 9.2 FL (7.4-10.4); PLATELET COUNT 148 /CUMM (130-400); RBC DISTRIBUTION WIDTH 16.4 % (11.5-14.5); RED BLOOD CELL CT 3.01 /CUMM (4.20-5.40); WHITE BLOOD CELL COUNT 21.4 /CUMM (4.8-10.8)
--- NOTE | 2017-03-02 06:53 | PN- General Surgery ---
Subjective Subjective: MUCH IMPROVED TODAY EXTUBATED, ON 2L NASAL O2 SAT AT 94% WANTS SOMETHING TO DRINK DENIES CP, SOB NO PRESSOR SUPPORT OVERNIGHT Objective Vital Signs and I&Os Vital Signs Date Time Temp Pulse Resp B/P B/P Pulse O2 O2 Flow FiO2 Mean Ox Delivery Rate 03/02 0400 94 Nasal 2.0L Cannula 03/02 0000 94 Nasal 2.0L Cannula 03/01 2359 99.4 75 24 140/64 94 Nasal 2.0L Cannula 03/01 2000 95 Nasal 3.0L Cannula 03/01 1600 96 Nasal 3.0L Cannula 03/01 1600 99.6 84 24 150/70 96 Nasal 3.0L Cannula 03/01 1200 96 T Piece 35% 03/01 1000 35 03/01 08 95 Ventilator 35% 03/01 08 99.7 78 21 150/60 95 Ventilator 35% Intake & Output 03/02 0800 03/02 0000 03/01 1600 03/01 0800 03/01 0000 02/28 1600 Intake Total 759 673 782 433 6822 2455 Output Total 760 1001 2620 2900 2570 900 Balance -1 -328 -2048 -2500 -420 1555 Intake, Blood 300 Product Intake, IV 759 673 637 854 3288 2155 Intake, Oral 0 0 0 Intake, Other 30 Output, 555 835 7737 1800 1370 475 Drainage Output, 0 50 100 300 Gastric Drainage Output, Stool 0 1 25 0 Output, Urine 130 557 383 4517 1100 125 Patient 195 lb 200 lb Weight Weight Bed scale Bed scale Measurement Method Physical Exam: CV: RRR LUNGS: SCATTERED RHONCHI ABD: SOFT, MINIMAL GUARDING TO PALP INCISION C/D/I LESS DUSKY APPEARANCE TO STOMA DARK LIQUID STOOL IN OSTOMA, NO GAS STRAW COLORED OUTPUT MARYELLEN EXT: CHRONIC BILAT LE EDEMA KNOWNO LEG DVT NO SIGNIFICANT CALF TENDERNESS TO PALP Assessment/Plan Assessment/Plan MARKEDLY IMPROVED CLINICAL PICTURE FROM SURGICAL STANDPOINT KNOWN COLOVESICAL FISTULA EXPECTED HIGH MARYELLEN OUTPUT-MOSTLY URINE PLAN CONT CURRENT COURSE F/U AM LABS POSSIBLE TRANSFER TO [facility] D/W ATTENDING Core Measures Venous Thromboembolism VTE Risk Factors Age>40 No Mechanical VTE Prophylaxis d/t N/A MechProphylax Ordered No VTE Pharm Prophylaxis d/t NA PharmProphylax ordered
--- NOTE | 2017-03-02 07:25 | PN- CRCU ---
Subjective HPI/Critical Care Issues: Patient doing well post extubation. Pain well controlled. Complaining of a dry mouth. No overnight events reported. Objective Current Medications: Current Medications Sig/Jacobo Start time Last Medication Dose Route Stop Time Status Admin Acetaminophen 1,000 MG Q12P PRN 02/24 0845 AC 02/28 N/A 1 UNIT IV 1954 Albumin Human 12.5 GM Q6 02/27 1806 AC 03/02 IV 0506 Ampicillin Sodium/ 3,000 MG Q6 02/26 1200 AC 03/02 Sulbactam Sodium IV 0522 Sodium Chloride 100 ML Dextrose/Water 1,000 ML Q13H 03/01 1315 AC 03/02 IV 0506 Fluconazole 400 MG Q48 03/02 1000 AC Sodium Chloride 200 ML IV Furosemide 20 MG ONCE ONE 03/01 0900 DC 03/01 IV 03/01 0901 0908 Heparin Sodium 25,000 UNIT Q24H 03/01 1015 CAN (Porcine) IV Sodium Chloride 500 ML Magnesium Sulfate 1 GM ONCE ONE 03/01 1015 DC 03/01 Dextrose/Water 100 ML IV 03/01 1414 1050 Pantoprazole Sodium 40 MG DAILY 02/26 2039 AC 03/01 IV 0915 Potassium Chloride 20 MEQ Q1H 03/02 0615 DC 03/02 IV 03/02 0716 0618 Potassium Chloride 20 MEQ Q1H 03/01 0745 DC 03/01 IV 03/01 0846 0908 Vital Signs & I&O Last 24 Hrs of Vitals and I&O: Vital Signs Date Time Temp Pulse Resp B/P B/P Pulse O2 O2 Flow FiO2 Mean Ox Delivery Rate 03/02 0400 94 Nasal 2.0L Cannula 03/02 0000 94 Nasal 2.0L Cannula 03/01 2359 99.4 75 24 140/64 94 Nasal 2.0L Cannula 03/01 1999 95 Nasal 3.0L Cannula 03/01 1600 96 Nasal 3.0L Cannula 03/01 1600 99.6 84 24 150/70 96 Nasal 3.0L Cannula 03/01 1200 96 T Piece 35% 03/01 1000 35 03/01 08 95 Ventilator 35% 03/01 799 99.7 78 21 150/60 95 Ventilator 35% Intake & Output 03/02 0800 03/02 0000 03/01 1600 Intake Total 759 673 572 Output Total 760 1001 2620 Balance -8 Intake, IV 759 673 542 Intake, Oral 0 0 Intake, Other 30 Output, 856 231 5953 Drainage Output, 0 Gastric Drainage Output, Stool 0 1 25 Output, Urine 130 150 720 Patient 195 lb Weight Weight Bed scale Measurement Method General Appearance: no apparent distress, doing well post extubation Head: atraumatic, normal appearance Neck: normal inspection, supple, limited range of motion Respiratory: rhonchi Cardiovascular: regular rate/rhythm, edema Gastrointestinal: soft, non-tender, absent bowel sounds, dressings in place Extremities: normal inspection, normal capillary refill, no edema Skin: normal color, warm/dry, colostomy bag in place Skin Temp/Moisture Exam: Warm/Dry Sepsis Skin Exam (color): Normal for Ethnicity Back: could not be examined Central Line Site: Right IJ Impression/Plan Impression/Plan Impression/Plan: 1. Septic shock secondary to abdominal perforation with peritonitis, s/p Hartmans, left oophorectomy and skin biopsy of the abdomen. 2. Respiratory failure, now with stable respiratory status post extubation. 3. Improved metabolic acidosis secondary to peritonitis/septic shock. 4. Acute kidney injury, possible ATN due to prolonged hypotension. 5. Electrolyte abnormalities - repletion underway. 6. Transaminitis secondary to septic shock. 7. Acute blood loss anemia, now stable, status post transfusion. 8. Urine culture positive for Escherichia coli, pansensitive. Recommendations: * Continue with weaning trials. * Will extubate if parameters are acceptable. * Follow up nephrology recommendations. * Continue to follow up culture data. * Continue IV ampicillin and fluconasole per ID recommendations. * Continue with pain control. * DVT and GI prophylaxis at all times. * Continue all supportive care. * Out of bed to chair today. * Advance diet when cleared by surgery.
--- NOTE | 2017-03-02 07:44 | PN- Resident CRCU ---
Subjective HPI/CRCU Issues: Patient is seen and examined at the bedside. She does not have any active complain. There is an abdominal drain which is still draining straw-colored fluid looked like urine. The left-side, there is colostomy bag which have some amount of fecal matter. Abdomen is soft and steples are dry and healing. 24 Hour Events: Vital signs -temperature 99.4, pulse 70, respiratory 24, blood pressure 146/70, SPO2 95%. Blood workup showed -WBC 21.4, hemoglobin 8.3, hematocrit 25.3, platelet count 148, serum sodium 149, potassium 3.2, carbon dioxide 26, chloride 113, BUN 32, creatinine 1.1, GFR 49, glucose 119, calcium 7.3, total bilirubin 1.9, AST 40, AST 67, albumin 2.1 Objective Vital Signs & I&O Last 8 Hrs of Vitals and I&O: Intake & Output 03/02 1600 Intake Total 694 Output Total 640 Balance 54 Intake, IV 694 Output, 300 Drainage Output, 150 Gastric Drainage Output, Stool 40 Output, Urine 150 Exam General Appearance: alert, awake, comfortable Respiratory: quiet respiration, lungs clear Cardiovascular: regular rate/rhythm Gastrointestinal: soft, non-tender, mt in lower and mid part of abdoman, right sided drain and left sided colostomy bag Extremities: bilateral lower leg edema Weaning Parameters NIF: 17 Minute Volume: 5.81 Resp rate: 28 Vt: 483 Heart Rate: 85 Weaning Schedule Start Time: 0946 Minute Volume: 6.25 Resp Rate: 25 Vt: 408 Heart Rate: 85 End Time: 1140 Start Time: 1140 Heart Rate: 86 Current Medications: Current Medications Sig/Jacobo Start time Last Medication Dose Route Stop Time Status Admin Acetaminophen 1,000 MG Q12P PRN 02/24 0845 AC 02/28 N/A 1 UNIT IV 1955 Albumin Human 12.5 GM Q6 02/27 1806 DC 03/02 IV 0506 Ampicillin Sodium/ 3,000 MG Q6 02/26 1200 AC 03/02 Sulbactam Sodium IV 1737 Sodium Chloride 100 ML Dextrose/Water 1,000 ML Q13H 03/01 1315 AC 03/02 IV 0506 Fluconazole 400 MG Q24 03/03 1000 AC Sodium Chloride 200 ML IV Fluconazole 400 MG Q48 03/02 1000 DC 03/02 Sodium Chloride 200 ML IV 1025 Heparin Sodium 25,000 UNIT Q24H 03/02 1130 AC 03/02 (Porcine) IV 1522 Sodium Chloride 500 ML Pantoprazole Sodium 40 MG DAILY 02/26 2038 AC 03/02 IV 0837 Potassium Chloride 20 MEQ Q1H 03/02 0615 DC 03/02 IV 03/02 0716 0837 Impression/Plan Impression/Problem List Impression: Ms Murphy is a 71-year-old woman with PMHx of arthritis, chronic b/l lower extremity edema presented to [facility] on 02/22 with complaints of burning during urination and increased frequency and urgency, along with extreme weakness anorexia, and a 10 pound weight loss. She was initially being managed for sepsis of urological origin and a right leg DVT. She subsequently developed diarrhea, abdominal pain, hypotension and tachypnea requiring ICU admission. Chest X-ray shows air under the diaphragm and coupled with the findings of her earlier CT abdomen showing colonic thickening and her feculent urine, there is concern for colonic perforation. She is being evaluated by General Surgery for emergent exploratory laparotomy. Plan Perforated colon with peritonitis leading to colovesical fistula s/p surgery sigmoid colectomy with end colostomy on 02/26/2017(POD 4) - * Drain is having fluid look like urine, probably bladder is leaking and leading to peritonitis and secondary leucocytosis. * currently on unasyn. * monitor vitals closely. Sepsis with leucocytosis - recovering * Continue unasyn, and added fluconazole as respiratory and urinary culture was growing yeast.We increased the dose of fluconazole to Q24. * White count worsening likely from peritonitis. Metabolic acidosis - no AG - improved Right leg DVT * IV heparin has been restarted Anemia of chronic disease - Serum ferritin is very high probably inflammation * CT abdmomen did not reveal any intra-abdominal bleeding. * Check CBC post transfusion. Diet - started on ICE chips after discussing with Dr Jacobs, waiting for urology evaluation, if they are ok, than start on diet. DVT prophylaxis - Heparin Code status - FC Problem List: 1. Colovesical fistula Pain Ratin Tomorrow's Labs & Rationales: cbc, icu bundle -for f/u Plan DVT/Prophylaxis: mechanical, pharmacological Pain Ratin Tomorrow's Labs & Rationales: cbc, icu bundle -for f/u Plan DVT/Prophylaxis: mechanical, pharmacological
[2017-03-02 08:00] VITALS: BP 130/60
--- NOTE | 2017-03-02 10:36 | PN- Infect Dx ---
Subjective Subjective: Afebrile. She feels well with no complaints status post extubation yesterday. Objective Last 24 Hrs of Vital Signs/I&O Vital Signs Date Time Temp Pulse Resp B/P B/P Pulse O2 O2 Flow FiO2 Mean Ox Delivery Rate 03/02 0400 94 Nasal 2.0L Cannula 03/02 0000 94 Nasal 2.0L Cannula 03/01 2359 99.4 75 24 140/64 94 Nasal 2.0L Cannula 03/01 2000 95 Nasal 3.0L Cannula 03/01 1600 96 Nasal 3.0L Cannula 03/01 1600 99.6 84 24 150/70 96 Nasal 3.0L Cannula 03/01 1200 96 T Piece 35% Intake & Output 03/02 1600 03/02 0800 03/02 0000 Intake Total 759 673 Output Total 760 1001 Balance -1 -328 Intake, IV 759 673 Intake, Oral 0 0 Output, 630 850 Drainage Output, Stool 0 1 Output, Urine 130 150 Physical Exam Other Physical Findings: She appears comfortable in no acute distress Neck right IJ triple-lumen catheter with no inflammation at the site Lungs decreased breath sounds at both bases Heart regular rhythm with no murmur Abdomen is soft, nontender with positive bowel sounds; colostomy with stool in the bag Extremities 2+ edema both lower extremities Pete catheter remains in place Results Last 24 Hours of Lab Results: Laboratory Tests 03/02 03/01 03/01 0410 1322 1220 Blood Gas pH (7.35 - 7.45 PH) 7.51 H pCO2 (35 - 45 TORR) 18 L pO2 (80 - 100 TORR) 121 H HCO3 (21 - 28 MEQ/L) 14 L ABG O2 Sat (Measured) (>96.0 %) 97.0 Carboxyhemoglobin (1.5 - 5.0 %) 0.1 L O2 Concentration % 35% O2 Delivery Method T-PIECE Chemistry Sodium (137 - 145 mmol/L) 149 H Potassium (3.5 - 5.1 mmol/L) 3.2 L Chloride (98 - 107 mmol/L) 113 H Carbon Dioxide (22 - 30 mmol/L) 26 Anion Gap (5 - 16) 11 BUN (7 - 17 mg/dL) 32 H Creatinine (0.5 - 1.0 mg/dL) 1.1 H Estimated GFR (>60 ml/min) 49 L Glucose (65 - 99 mg/dL) 119 H Calcium (8.4 - 10.2 mg/dL) 7.3 L Phosphorus (2.5 - 4.5 mg/dL) 3.1 Magnesium (1.6 - 2.3 mg/dL) 1.9 Total Bilirubin (0.2 - 1.3 mg/dL) 1.9 H AST (14 - 36 U/L) 40 H ALT (9 - 52 U/L) 67 H Albumin (3.5 - 5.0 g/dL) 2.1 L Hematology CBC w Diff MAN DIFF ORDERED WBC (4.8 - 10.8 /CUMM) 21.4 H RBC (4.20 - 5.40 /CUMM) 3.01 L Hgb (12.0 - 16.0 G/DL) 8.3 L Hct (37 - 47 %) 25.3 L MCV (81.0 - 99.0 FL) 84.0 MCH (27.0 - 31.0 PG) 27.5 MCHC (33.0 - 37.0 G/DL) 32.8 L RDW (11.5 - 14.5 %) 16.4 H Plt Count (130 - 400 /CUMM) 148 MPV (7.4 - 10.4 FL) 9.2 Gran % (42.2 - 75.2 %) 94.7 H Lymphocytes % (20.5 - 51.1 %) 2.8 L Monocytes % (1.7 - 9.3 %) 2.3 Eosinophils % (0 - 5 %) 0.2 Basophils % (0.0 - 2.0 %) 0 Absolute Granulocytes (1.4 - 6.5 /CUMM) 20.2 H Segmented Neutrophils (42.2 - 75.2 %) 90 H Band Neutrophils (0.0 - 5.0 %) 1 Absolute Lymphocytes (1.2 - 3.4 /CUMM) 0.6 L Lymphocytes (20.5 - 51.1 %) 3 L Monocytes (1.7 - 9.3 %) 5 Absolute Monocytes (0.10 - 0.60 /CUMM) 0.5 Absolute Eosinophils (0.0 - 0.7 /CUMM) 0 Absolute Basophils (0.0 - 0.2 /CUMM) 0 Metamyelocytes (0.0 - 1.0 %) 1 Platelet Estimate (ADEQUATE) ADEQUATE Polychromasia 1+ Hypochromic-Microcytic 1+ Poikilocytosis 1+ Ovalocytes 1+ Miscellaneous Phlebotomy Draw Site RIGHT A-LINE Other Body Source Fld Total RBCs Counted (%) 100 Fluid Urea Nitrogen (mg/dL) 166 Fluid Creatinine (mg/dL) > 28 Pathology report revealed acute diverticulitis with rupture and abscess formation, with no evidence for malignancy Last 24 Hours of Caleb Results: Blood cultures 2 February 28 negative Urine culture February 28 greater than 100,000 colonies of yeast OR culture February 26 positive for alpha strep, Escherichia coli, Bacteroides species not fragilis, Clostridium species and yeast not Olimpia albicans Assessment/Plan Impression: Improving, status post successful extubation yesterday, with temperatures remaining normal and white blood cell count decreasing now 4 days status post sigmoid colectomy with 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 She remains on Unasyn and Fluconazole for polymicrobial sepsis, with Clostridium and Escherichia coli isolated from the blood cultures and with these organisms, as well as alpha strep, Bacteroides and yeast isolated from the OR cultures. The yeast may be a non-albicans species and it has been sent out for identification and sensitivities but, as she is improving, she can be continued on Fluconazole pending these results. Her urine culture has also grown yeast, likely secondary to the colovesical fistula, with yeast in her sputum likely representing oropharyngeal contamination. Her renal failure continues to improve as do her liver enzymes. She remains off Heparin, status post recent diagnosis of a right lower extremity DVT preop. Suggestion: 1. Further management with regard to anticoagulation per the critical care team and Surgery 2. Would remove right IJ as soon as possible 3. Await ID and sensitivities of her Olimpia species 4. Increase Fluconazole to 400 mg IV every 24 hours 5. Continue Unasyn
--- NOTE | 2017-03-02 12:29 | PN- Att Addend ---
Attending Addendum Attending Brief Note Patient looking and feeling better amish has been extubated she has been off the pressors. Patient is alert and oriented 3 Temp max 99 4. White count 21,400 , hemoglobin 8.3 no other major changes potassium 3.2 replacing. And 32 creatinine 1.1 appreciate all the consultants input and recommendations. He knew close observation monitor the labs probably soon will be able to leave the intensive care unit patient has an NG tube in check with surgery see how long it has to stay in Intake & Output 03/02 1600 03/02 0400 03/01 1600 03/01 0400 02/28 1600 02/28 0400 Intake Total 759 932 507 0226 4637 1928 Output Total 760 1001 5520 2570 1380 480 Balance -1 -328 -4548 -420 3257 1448 Intake, Blood 1070 Product Intake, IV 759 865 359 3667 3567 1928 Intake, Oral 0 0 0 0 Intake, Other 30 Output, 213 556 0809 1370 675 190 Drainage Output, 50 100 300 Gastric Drainage Output, Stool 0 1 25 0 80 205 Output, Urine 429 352 3744 1100 325 85 Patient 195 lb 200 lb Weight Weight Bed scale Bed scale Measurement Method Current Medications Sig/Jacobo Start time Last Medication Dose Route Stop Time Status Admin Acetaminophen 1,000 MG Q12P PRN 02/24 0845 02/28 N/A 1 UNIT IV 195 Albumin Human 12.5 GM Q6 02/27 1806 DC 03/02 IV 0506 Ampicillin Sodium/ 3,000 MG Q6 02/26 1200 AC 03/02 Sulbactam Sodium IV 1200 Sodium Chloride 100 ML Dextrose/Water 1,000 ML Q13H 03/01 1315 AC 03/02 IV 0506 Fluconazole 400 MG Q24 03/03 1000 AC Sodium Chloride 200 ML IV Fluconazole 400 MG Q48 03/02 1000 DC 03/02 Sodium Chloride 200 ML IV 1025 Heparin Sodium 25,000 UNIT Q24H 03/02 1130 AC (Porcine) IV Sodium Chloride 500 ML Magnesium Sulfate 1 GM ONCE ONE 03/01 1015 DC 03/01 Dextrose/Water 100 ML IV 03/01 1414 1050 Pantoprazole Sodium 40 MG DAILY 02/26 2039 AC 03/02 IV 0837 Potassium Chloride 20 MEQ Q1H 03/02 0615 DC 03/02 IV 03/02 0716 0837 Laboratory Tests 03/02/17 1000: Ref Lab Test Result Pending, Ref Lab Test Result Pending 03/02/17 0410: Anion Gap 11, Estimated GFR 49 L, Glucose 119 H, Calcium 7.3 L, Phosphorus 3.1, Magnesium 1.9, Total Bilirubin 1.9 H, AST 40 H, ALT 67 H, Albumin 2.1 L , CBC w Diff MAN DIFF ORDERED, RBC 3.01 L, MCV 84.0, MCH 27.5, MCHC 32.8 L, RDW 16.4 H, MPV 9.2, Gran % 94.7 H, Lymphocytes % 2.8 L, Monocytes % 2.3, Eosinophils % 0.2, Basophils % 0, Absolute Granulocytes 20.2 H, Segmented Neutrophils 90 H, Band Neutrophils 1, Absolute Lymphocytes 0.6 L, Lymphocytes 3 L, Monocytes 5, Absolute Monocytes 0.5, Absolute Eosinophils 0, Absolute Basophils 0, Metamyelocytes 1, Platelet Estimate ADEQUATE, Polychromasia 1+, Hypochromic-Microcytic 1+, Poikilocytosis 1+, Ovalocytes 1+, Fld Total RBCs Counted 100 03/01/17 1322: Fluid Urea Nitrogen 166, Fluid Creatinine > 28 03/01/17 1220: pH 7.51 H, pCO2 18 L, pO2 121 H, HCO3 14 L, ABG O2 Sat (Measured) 97.0, Carboxyhemoglobin 0.1 L, O2 Concentration % 35%, O2 Delivery Method T-PIECE, Phlebotomy Draw Site RIGHT A-LINE 03/01/17 0350: Anion Gap 13, Estimated GFR 40 L, Glucose 68, Calcium 6.8 L, Phosphorus 2.7, Magnesium 1.7, Total Bilirubin 2.2 H, AST 84 H, ALT 91 H, Albumin 2.0 L, CBC w Diff MAN DIFF ORDERED, RBC 3.23 L, MCV 83.7, MCH 27.2, RDW 15.7 H, MPV 8.8, Gran % 96.7 H, Lymphocytes % 3.0 L, Monocytes % 0.1 L, Eosinophils % 0.1, Basophils % 0.1, Absolute Granulocytes 27.8 H, Segmented Neutrophils 78 H, Band Neutrophils 10 H, Absolute Lymphocytes 0.9 L, Lymphocytes 4 L, Monocytes 6, Absolute Monocytes 0 L, Eosinophils 1, Absolute Eosinophils 0, Absolute Basophils 0, Metamyelocytes 1, Platelet Estimate ADEQUATE, Polychromasia 1+, Hypochromic-Microcytic 1+, Anisocytosis 1+, Blaine Cells 1+, Elliptocytes 1+, PUBS MCHC 32.5 L 02/28/17 2010: Anion Gap 12, Estimated GFR 37 L, BUN/Creatinine Ratio 31.4 H, CBC w Diff MAN DIFF ORDERED, RBC 3.14 L, MCV 83.8, MCH 27.6, RDW 15.3 H, MPV 9.6, Gran % 97.0 H, Lymphocytes % 2.4 L, Monocytes % 0.5 L, Eosinophils % 0.1, Basophils % 0, Absolute Granulocytes 28.9 H, Segmented Neutrophils 97 H, Absolute Lymphocytes 0.7 L, Lymphocytes 2 L, Monocytes 1 L, Absolute Monocytes 0.1, Absolute Eosinophils 0, Absolute Basophils 0, Nucleated RBCs 1 H, Platelet Estimate ADEQUATE, Hypochromic-Microcytic 1+, Poikilocytosis 1+, Anisocytosis 1+, Target Cells 1+, PUBS MCHC 33.0 02/28/17 1250: pH 7.47 H, pCO2 30 L, pO2 73 L, HCO3 22, ABG O2 Sat (Measured) 95.0 L, P-50 (Temp Corrected) NO, Carboxyhemoglobin 1.0 L, O2 Concentration % 35%, Temperature 98.6, O2 Delivery Method TPIECE, Phlebotomy Draw Site R ART LINE 02/28/17 1000: Lactic Acid 1.5, CBC w Diff MAN DIFF ORDERED, RBC 3.17 L, MCV 83.3, MCH 27.8, RDW 15.3 H, MPV 8.8, Gran % 95.9 H, Lymphocytes % 2.3 L, Monocytes % 1.7, Eosinophils % 0, Basophils % 0.1, Absolute Granulocytes 31.7 H, Absolute Lymphocytes 0.8 L, Absolute Monocytes 0.6, Absolute Eosinophils 0, Absolute Basophils 0, Polychromasia 1+, Anisocytosis 1+, PUBS MCHC 33.3 02/28/17 0700: pH 7.52 H, pCO2 27 L, pO2 90, HCO3 21, ABG O2 Sat (Measured) 96.0, P-50 (Temp Corrected) N, Carboxyhemoglobin 0.4 L, O2 Concentration % .35, Respiration Rate 20, O2 Delivery Method VENT, Vent Mode A/C, Expiratory Pressure 5, Tidal Volume 500, Phlebotomy Draw Site [place] 02/28/17 0425: Lactic Acid 2.4 H 02/28/17 0425: Anion Gap 12, Estimated GFR 32 L, Glucose 120 H, Calcium 6.5 L, Phosphorus 3.2, Magnesium 1.8, Total Bilirubin 1.7 H, AST 94 H, ALT 104 H, Troponin I 0.05, Albumin 1.5 L, CBC w Diff MAN DIFF ORDERED, RBC 2.83 L, MCV 84.5, MCH 27.8, RDW 15.7 H, MPV 8.8, Gran % 95.7 H, Lymphocytes % 2.8 L, Monocytes % 1.5 L, Eosinophils % 0, Basophils % 0, Absolute Granulocytes 29.4 H, Segmented Neutrophils 96 H, Band Neutrophils 3, Absolute Lymphocytes 0.8 L, Monocytes 1 L, Absolute Monocytes 0.5, Absolute Eosinophils 0, Absolute Basophils 0, Platelet Estimate ADEQUATE, Hypochromic-Microcytic 1+, Poikilocytosis 1+, PUBS MCHC 32.9 L 02/28/175: Lactic Acid 2.8 H 02/27/170: Anion Gap 9, Estimated GFR 30 L, Glucose 161 H, Lactic Acid 2.2 H, Calcium 6.3 L, Phosphorus 3.4, Magnesium 1.8, Iron 35 L, TIBC 102 L, Ferritin 957.0 H, Total Bilirubin 0.6, AST 110 H, ALT 115 H, Troponin I 0.06, Albumin 1.3 L, CBC w Diff MAN DIFF ORDERED, RBC 2.17 L, MCV 82.7, MCH 26.0 L, RDW 17.7 H, MPV 8.4, Gran % 94.7 H, Lymphocytes % 3.3 L, Monocytes % 2.0, Eosinophils % 0, Basophils % 0, Absolute Granulocytes 23.6 H, Segmented Neutrophils 95 H, Band Neutrophils 2, Absolute Lymphocytes 0.8 L, Lymphocytes 3 L, Absolute Monocytes 0.5, Absolute Eosinophils 0, Absolute Basophils 0, Platelet Estimate VERIFIED BY SMEAR, Normochromic RBCs VERIFIED, Anisocytosis 1+, PUBS MCHC 31.5 L, Fld Total RBCs Counted 100 02/27/171934: Lactic Acid 2.9 H 02/27/17 1830: Ur Random Creatinine 49.5, Ur Random Sodium 36, Ur Random Potassium 45.8, Fraction Sodium Excret 0.8 02/27/17 1505: Lactic Acid 4.3 H 02/27/17 1320: Lactic Acid 5.2 H Microbiology 02/29 2044 BLOOD: Blood Culture - RES 02/28 2029 BLOOD: Blood Culture - RES 02/28 2021 LOWER RESP: Respiratory Culture - COMP YEAST 02/28 2021 LOWER RESP: Gram Stain - COMP 02/28 2019 URINE ROUT: Urine Culture - RES YEAST Microbiology 02/29 2044 BLOOD: Blood Culture - RES 02/28 2029 BLOOD: Blood Culture - RES 02/28 2021 LOWER RESP: Respiratory Culture - COMP YEAST 02/28 2021 LOWER RESP: Gram Stain - COMP 02/28 2019 URINE ROUT: Urine Culture - RES YEAST Vital Signs Date Time Temp Pulse Resp B/P B/P Pulse O2 O2 Flow FiO2 Mean Ox Delivery Rate 03/02 1200 95 Nasal 3.0L Cannula 03/02 0800 94 Nasal 2.0L Cannula 03/02 0800 99.3 74 20 130/60 94 Nasal 2.0L Cannula 03/02 0400 94 Nasal 2.0L Cannula 03/02 0000 94 Nasal 2.0L Cannula 03/01 2359 99.4 75 24 140/64 94 Nasal 2.0L Cannula 03/01 2000 95 Nasal 3.0L Cannula 03/01 1600 96 Nasal 3.0L Cannula 03/01 1600 99.6 84 24 150/70 96 Nasal 3.0L Cannula Continue antibiotics and antifungals as per infectious diseases
--- NOTE | 2017-03-02 12:33 | PN- Nephrology ---
Assessment/Plan Assessment: 1. SEN secondary to sepsis -resolved 2. Status post laparotomy with sigmoid colectomy, end colostomy, takedown of a colovesical fistula and left oophorectomy. 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 MARYELLEN drainage remains high with high urea concentration indicating urine leakage 3. Hypernatremia - persistent 4. Hypokalemia 5. Leukocytosis which now appears to be improving Suggestion: 1. Increase D5W to 100 mL per hour; would add 20 mEq per liter of KCl 2. IV Lasix as needed 3. Antimicrobial therapy per ID Subjective Subjective: Patient is now extubated, awake and alert in amazingly good spirits. High MARYELLEN urea concentration indicates urinary leakage into the peritoneum. She remains afebrile and her WBC is falling. Renal function has essentially returned to normal. Serum sodium, however, is drifting up and she is hypokalemic. Objective Vital Signs and I&Os Vital Signs Date Time Temp Pulse Resp B/P B/P Pulse O2 O2 Flow FiO2 Mean Ox Delivery Rate 03/02 1200 95 Nasal 3.0L Cannula 03/02 0800 94 Nasal 2.0L Cannula 03/02 0800 99.3 74 20 130/60 94 Nasal 2.0L Cannula 03/02 0400 94 Nasal 2.0L Cannula 03/02 0000 94 Nasal 2.0L Cannula 03/01 2359 99.4 75 24 140/64 94 Nasal 2.0L Cannula 03/01 2000 95 Nasal 3.0L Cannula 03/01 1600 96 Nasal 3.0L Cannula 03/01 1600 99.6 84 24 150/70 96 Nasal 3.0L Cannula Intake & Output 03/02 1600 03/02 0400 03/01 1600 03/01 0400 02/28 1600 02/28 0400 Intake Total 759 851 041 5857 4637 1928 Output Total 760 1001 5520 2570 1380 480 Balance -1 -328 -4548 -420 3257 1448 Intake, Blood 1070 Product Intake, IV 759 974 265 1843 3567 1928 Intake, Oral 0 0 0 0 Intake, Other 30 Output, 645 037 5433 1370 675 190 Drainage Output, 50 100 300 Gastric Drainage Output, Stool 0 1 25 0 80 205 Output, Urine 281 321 5107 1100 325 85 Patient 195 lb 200 lb Weight Weight Bed scale Bed scale Measurement Method Physical Exam: General: Well-developed white female in no acute distress Skin: No rash or jaundice HEENT: Conjunctivae pale, sclerae anicteric Neck: Without masses, no supraclavicular or cervical adenopathy Chest: Clear anterolaterally Heart: Regular rate and rhythm without S3 or rub Abdomen: Soft, nontender, MARYELLEN drain in place, left lower quadrant colostomy Extremities: Without cyanosis. + lower extremity edema Neuro: Awake, alert and fully interactive. No focal findings, no asterixis or myoclonus Results Pertinent Lab Results: Laboratory Tests 03/02 03/02 03/01 UNK 0410 1322 Chemistry Sodium (137 - 145 mmol/L) 149 H Potassium (3.5 - 5.1 mmol/L) 3.2 L Chloride (98 - 107 mmol/L) 113 H Carbon Dioxide (22 - 30 mmol/L) 26 Anion Gap (5 - 16) 11 BUN (7 - 17 mg/dL) 32 H Creatinine (0.5 - 1.0 mg/dL) 1.1 H Estimated GFR (>60 ml/min) 49 L Glucose (65 - 99 mg/dL) 119 H Calcium (8.4 - 10.2 mg/dL) 7.3 L Phosphorus (2.5 - 4.5 mg/dL) 3.1 Magnesium (1.6 - 2.3 mg/dL) 1.9 Total Bilirubin (0.2 - 1.3 mg/dL) 1.9 H AST (14 - 36 U/L) 40 H ALT (9 - 52 U/L) 67 H Albumin (3.5 - 5.0 g/dL) 2.1 L Hematology CBC w Diff MAN DIFF ORDERED WBC (4.8 - 10.8 /CUMM) 21.4 H RBC (4.20 - 5.40 /CUMM) 3.01 L Hgb (12.0 - 16.0 G/DL) 8.3 L Hct (37 - 47 %) 25.3 L MCV (81.0 - 99.0 FL) 84.0 MCH (27.0 - 31.0 PG) 27.5 MCHC (33.0 - 37.0 G/DL) 32.8 L RDW (11.5 - 14.5 %) 16.4 H Plt Count (130 - 400 /CUMM) 148 MPV (7.4 - 10.4 FL) 9.2 Gran % (42.2 - 75.2 %) 94.7 H Lymphocytes % (20.5 - 51.1 %) 2.8 L Monocytes % (1.7 - 9.3 %) 2.3 Eosinophils % (0 - 5 %) 0.2 Basophils % (0.0 - 2.0 %) 0 Absolute Granulocytes (1.4 - 6.5 /CUMM) 20.2 H Segmented Neutrophils (42.2 - 75.2 %) 90 H Band Neutrophils (0.0 - 5.0 %) 1 Absolute Lymphocytes (1.2 - 3.4 /CUMM) 0.6 L Lymphocytes (20.5 - 51.1 %) 3 L Monocytes (1.7 - 9.3 %) 5 Absolute Monocytes (0.10 - 0.60 /CUMM) 0.5 Absolute Eosinophils (0.0 - 0.7 /CUMM) 0 Absolute Basophils (0.0 - 0.2 /CUMM) 0 Metamyelocytes (0.0 - 1.0 %) 1 Platelet Estimate (ADEQUATE) ADEQUATE Polychromasia 1+ Hypochromic-Microcytic 1+ Poikilocytosis 1+ Ovalocytes 1+ Miscellaneous Ref Lab Test Result Pending Ref Lab Test Result Pending Other Body Source Fld Total RBCs Counted (%) 100 Fluid Urea Nitrogen (mg/dL) 166 Fluid Creatinine (mg/dL) > 28 03/01 03/01 1220 0350 Blood Gas pH (7.35 - 7.45 PH) 7.51 H pCO2 (35 - 45 TORR) 18 L pO2 (80 - 100 TORR) 121 H HCO3 (21 - 28 MEQ/L) 14 L ABG O2 Sat (Measured) (>96.0 %) 97.0 Carboxyhemoglobin (1.5 - 5.0 %) 0.1 L O2 Concentration % 35% O2 Delivery Method T-PIECE Chemistry Sodium (137 - 145 mmol/L) 147 H Potassium (3.5 - 5.1 mmol/L) 3.5 Chloride (98 - 107 mmol/L) 114 H Carbon Dioxide (22 - 30 mmol/L) 21 L Anion Gap (5 - 16) 13 BUN (7 - 17 mg/dL) 42 H Creatinine (0.5 - 1.0 mg/dL) 1.3 H Estimated GFR (>60 ml/min) 40 L Glucose (65 - 99 mg/dL) 68 Calcium (8.4 - 10.2 mg/dL) 6.8 L Phosphorus (2.5 - 4.5 mg/dL) 2.7 Magnesium (1.6 - 2.3 mg/dL) 1.7 Total Bilirubin (0.2 - 1.3 mg/dL) 2.2 H AST (14 - 36 U/L) 84 H ALT (9 - 52 U/L) 91 H Albumin (3.5 - 5.0 g/dL) 2.0 L Hematology CBC w Diff MAN DIFF ORDERED WBC (4.8 - 10.8 /CUMM) 28.8 H RBC (4.20 - 5.40 /CUMM) 3.23 L Hgb (12.0 - 16.0 G/DL) 8.8 L Hct (37 - 47 %) 27.0 L MCV (81.0 - 99.0 FL) 83.7 MCH (27.0 - 31.0 PG) 27.2 RDW (11.5 - 14.5 %) 15.7 H Plt Count (130 - 400 /CUMM) 162 MPV (7.4 - 10.4 FL) 8.8 Gran % (42.2 - 75.2 %) 96.7 H Lymphocytes % (20.5 - 51.1 %) 3.0 L Monocytes % (1.7 - 9.3 %) 0.1 L Eosinophils % (0 - 5 %) 0.1 Basophils % (0.0 - 2.0 %) 0.1 Absolute Granulocytes (1.4 - 6.5 /CUMM) 27.8 H Segmented Neutrophils (42.2 - 75.2 %) 78 H Band Neutrophils (0.0 - 5.0 %) 10 H Absolute Lymphocytes (1.2 - 3.4 /CUMM) 0.9 L Lymphocytes (20.5 - 51.1 %) 4 L Monocytes (1.7 - 9.3 %) 6 Absolute Monocytes (0.10 - 0.60 /CUMM) 0 L Eosinophils (0 - 5.0 %) 1 Absolute Eosinophils (0.0 - 0.7 /CUMM) 0 Absolute Basophils (0.0 - 0.2 /CUMM) 0 Metamyelocytes (0.0 - 1.0 %) 1 Platelet Estimate (ADEQUATE) ADEQUATE Polychromasia 1+ Hypochromic-Microcytic 1+ Anisocytosis 1+ Blaine Cells 1+ Elliptocytes 1+ PUBS MCHC (33.0 - 37.0 G/DL) 32.5 L Miscellaneous Phlebotomy Draw Site RIGHT A-LINE 02/28 1250 Blood Gas pH (7.35 - 7.45 PH) 7.47 H pCO2 (35 - 45 TORR) 30 L pO2 (80 - 100 TORR) 73 L HCO3 (21 - 28 MEQ/L) 22 ABG O2 Sat (Measured) (>96.0 %) 95.0 L P-50 (Temp Corrected) NO Carboxyhemoglobin (1.5 - 5.0 %) 1.0 L O2 Concentration % 35% Temperature (97.0 - 100.0 FARH) 98.6 O2 Delivery Method TPIECE Chemistry Sodium (137 - 145 mmol/L) 146 H Potassium (3.5 - 5.1 mmol/L) 3.4 L Chloride (98 - 107 mmol/L) 113 H Carbon Dioxide (22 - 30 mmol/L) 21 L Anion Gap (5 - 16) 12 BUN (7 - 17 mg/dL) 44 H Creatinine (0.5 - 1.0 mg/dL) 1.4 H Estimated GFR (>60 ml/min) 37 L BUN/Creatinine Ratio (7 - 25 %) 31.4 H Hematology CBC w Diff MAN DIFF ORDERED WBC (4.8 - 10.8 /CUMM) 29.8 H RBC (4.20 - 5.40 /CUMM) 3.14 L Hgb (12.0 - 16.0 G/DL) 8.7 L Hct (37 - 47 %) 26.3 L MCV (81.0 - 99.0 FL) 83.8 MCH (27.0 - 31.0 PG) 27.6 RDW (11.5 - 14.5 %) 15.3 H Plt Count (130 - 400 /CUMM) 160 MPV (7.4 - 10.4 FL) 9.6 Gran % (42.2 - 75.2 %) 97.0 H Lymphocytes % (20.5 - 51.1 %) 2.4 L Monocytes % (1.7 - 9.3 %) 0.5 L Eosinophils % (0 - 5 %) 0.1 Basophils % (0.0 - 2.0 %) 0 Absolute Granulocytes (1.4 - 6.5 /CUMM) 28.9 H Segmented Neutrophils (42.2 - 75.2 %) 97 H Absolute Lymphocytes (1.2 - 3.4 /CUMM) 0.7 L Lymphocytes (20.5 - 51.1 %) 2 L Monocytes (1.7 - 9.3 %) 1 L Absolute Monocytes (0.10 - 0.60 /CUMM) 0.1 Absolute Eosinophils (0.0 - 0.7 /CUMM) 0 Absolute Basophils (0.0 - 0.2 /CUMM) 0 Nucleated RBCs (0.0 - 0.0 /100WBC) 1 H Platelet Estimate (ADEQUATE) ADEQUATE Hypochromic-Microcytic 1+ Poikilocytosis 1+ Anisocytosis 1+ Target Cells 1+ PUBS MCHC (33.0 - 37.0 G/DL) 33.0 Miscellaneous Phlebotomy Draw Site R ART LINE 02/28 02/28 02/28 1000 0700 0425 Blood Gas pH (7.35 - 7.45 PH) 7.52 H pCO2 (35 - 45 TORR) 27 L pO2 (80 - 100 TORR) 90 HCO3 (21 - 28 MEQ/L) 21 ABG O2 Sat (Measured) (>96.0 %) 96.0 P-50 (Temp Corrected) N Carboxyhemoglobin (1.5 - 5.0 %) 0.4 L O2 Concentration % .35 Respiration Rate (BPM) 20 O2 Delivery Method VENT Vent Mode A/C Expiratory Pressure (CMH2O/P) 5 Tidal Volume (CC) 500 Chemistry Lactic Acid (0.7 - 2.1 mmol/L) 1.5 2.4 H Hematology CBC w Diff MAN DIFF ORDERED WBC (4.8 - 10.8 /CUMM) 33.0 *H RBC (4.20 - 5.40 /CUMM) 3.17 L Hgb (12.0 - 16.0 G/DL) 8.8 L Hct (37 - 47 %) 26.4 L MCV (81.0 - 99.0 FL) 83.3 MCH (27.0 - 31.0 PG) 27.8 RDW (11.5 - 14.5 %) 15.3 H Plt Count (130 - 400 /CUMM) 164 MPV (7.4 - 10.4 FL) 8.8 Gran % (42.2 - 75.2 %) 95.9 H Lymphocytes % (20.5 - 51.1 %) 2.3 L Monocytes % (1.7 - 9.3 %) 1.7 Eosinophils % (0 - 5 %) 0 Basophils % (0.0 - 2.0 %) 0.1 Absolute Granulocytes (1.4 - 6.5 /CUMM) 31.7 H Absolute Lymphocytes (1.2 - 3.4 /CUMM) 0.8 L Absolute Monocytes (0.10 - 0.60 /CUMM) 0.6 Absolute Eosinophils (0.0 - 0.7 /CUMM) 0 Absolute Basophils (0.0 - 0.2 /CUMM) 0 Polychromasia 1+ Anisocytosis 1+ PUBS MCHC (33.0 - 37.0 G/DL) 33.3 Miscellaneous Phlebotomy Draw Site EAGAR 02/28 02/28 0422 0145 Chemistry Sodium (137 - 145 mmol/L) 143 Potassium (3.5 - 5.1 mmol/L) 3.8 Chloride (98 - 107 mmol/L) 109 H Carbon Dioxide (22 - 30 mmol/L) 22 Anion Gap (5 - 16) 12 BUN (7 - 17 mg/dL) 51 H Creatinine (0.5 - 1.0 mg/dL) 1.6 H Estimated GFR (>60 ml/min) 32 L Glucose (65 - 99 mg/dL) 120 H Lactic Acid (0.7 - 2.1 mmol/L) 2.8 H Calcium (8.4 - 10.2 mg/dL) 6.5 L Phosphorus (2.5 - 4.5 mg/dL) 3.2 Magnesium (1.6 - 2.3 mg/dL) 1.8 Total Bilirubin (0.2 - 1.3 mg/dL) 1.7 H AST (14 - 36 U/L) 94 H ALT (9 - 52 U/L) 104 H Troponin I (< 0.11 ng/ml) 0.05 Albumin (3.5 - 5.0 g/dL) 1.5 L Hematology CBC w Diff MAN DIFF ORDERED WBC (4.8 - 10.8 /CUMM) 30.7 *H RBC (4.20 - 5.40 /CUMM) 2.83 L Hgb (12.0 - 16.0 G/DL) 7.9 L Hct (37 - 47 %) 23.9 L MCV (81.0 - 99.0 FL) 84.5 MCH (27.0 - 31.0 PG) 27.8 RDW (11.5 - 14.5 %) 15.7 H Plt Count (130 - 400 /CUMM) 176 MPV (7.4 - 10.4 FL) 8.8 Gran % (42.2 - 75.2 %) 95.7 H Lymphocytes % (20.5 - 51.1 %) 2.8 L Monocytes % (1.7 - 9.3 %) 1.5 L Eosinophils % (0 - 5 %) 0 Basophils % (0.0 - 2.0 %) 0 Absolute Granulocytes (1.4 - 6.5 /CUMM) 29.4 H Segmented Neutrophils (42.2 - 75.2 %) 96 H Band Neutrophils (0.0 - 5.0 %) 3 Absolute Lymphocytes (1.2 - 3.4 /CUMM) 0.8 L Monocytes (1.7 - 9.3 %) 1 L Absolute Monocytes (0.10 - 0.60 /CUMM) 0.5 Absolute Eosinophils (0.0 - 0.7 /CUMM) 0 Absolute Basophils (0.0 - 0.2 /CUMM) 0 Platelet Estimate (ADEQUATE) ADEQUATE Hypochromic-Microcytic 1+ Poikilocytosis 1+ PUBS MCHC (33.0 - 37.0 G/DL) 32.9 L 02/27 02/27 02/27 2230 1935 1830 Chemistry Sodium (137 - 145 mmol/L) 142 Potassium (3.5 - 5.1 mmol/L) 3.9 Chloride (98 - 107 mmol/L) 111 H Carbon Dioxide (22 - 30 mmol/L) 22 Anion Gap (5 - 16) 9 BUN (7 - 17 mg/dL) 49 H Creatinine (0.5 - 1.0 mg/dL) 1.7 H Estimated GFR (>60 ml/min) 30 L Glucose (65 - 99 mg/dL) 161 H Lactic Acid (0.7 - 2.1 mmol/L) 2.2 H 2.9 H Calcium (8.4 - 10.2 mg/dL) 6.3 L Phosphorus (2.5 - 4.5 mg/dL) 3.4 Magnesium (1.6 - 2.3 mg/dL) 1.8 Iron (37 - 170 ug/dL) 35 L TIBC (265 - 497 ug/dL) 102 L Ferritin (11.1 - 264 ng/mL) 957.0 H Total Bilirubin (0.2 - 1.3 mg/dL) 0.6 AST (14 - 36 U/L) 110 H ALT (9 - 52 U/L) 115 H Troponin I (< 0.11 ng/ml) 0.06 Albumin (3.5 - 5.0 g/dL) 1.3 L Hematology CBC w Diff MAN DIFF ORDERED WBC (4.8 - 10.8 /CUMM) 25.0 H RBC (4.20 - 5.40 /CUMM) 2.17 L Hgb (12.0 - 16.0 G/DL) 5.6 *L Hct (37 - 47 %) 17.9 *L MCV (81.0 - 99.0 FL) 82.7 MCH (27.0 - 31.0 PG) 26.0 L RDW (11.5 - 14.5 %) 17.7 H Plt Count (130 - 400 /CUMM) 202 MPV (7.4 - 10.4 FL) 8.4 Gran % (42.2 - 75.2 %) 94.7 H Lymphocytes % (20.5 - 51.1 %) 3.3 L Monocytes % (1.7 - 9.3 %) 2.0 Eosinophils % (0 - 5 %) 0 Basophils % (0.0 - 2.0 %) 0 Absolute Granulocytes (1.4 - 6.5 /CUMM) 23.6 H Segmented Neutrophils (42.2 - 75.2 %) 95 H Band Neutrophils (0.0 - 5.0 %) 2 Absolute Lymphocytes (1.2 - 3.4 /CUMM) 0.8 L Lymphocytes (20.5 - 51.1 %) 3 L Absolute Monocytes (0.10 - 0.60 /CUMM) 0.5 Absolute Eosinophils (0.0 - 0.7 /CUMM) 0 Absolute Basophils (0.0 - 0.2 /CUMM) 0 Platelet Estimate (ADEQUATE) VERIFIED BY SMEAR Normochromic RBCs VERIFIED Anisocytosis 1+ PUBS MCHC (33.0 - 37.0 G/DL) 31.5 L Other Body Source Fld Total RBCs Counted (%) 100 Urines Ur Random Creatinine (mg/dL) 49.5 Ur Random Sodium (30 - 90 mmol/L) 36 Ur Random Potassium (mmol/L) 45.8 Fraction Sodium Excret (<1% %) 0.8 02/27 02/27 1505 1320 Chemistry Lactic Acid (0.7 - 2.1 mmol/L) 4.3 H 5.2 H
--- NOTE | 2017-03-02 13:00 | PN- General Surgery ---
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 Heparin gtt for preop identified DVT. Ok for ice chips. Start diet when bowel function returned. Currently has scant stool in stoma bag. Acute renal failure resolving. However there is concern that the bladder may be draining into peritoneum. High drain output with Cr >28. Will obtain Urology input re: further w/u and management (I called). For now her drain appears to be controlling pelvic fluid. Continue iglesais.
[2017-03-02 16:00] VITALS: BP 146/70
[2017-03-02 21:43] LABS: PTT 70 SEC (25-37)
[2017-03-03] VITALS: BP 148/78
--- NOTE | 2017-03-03 05:53 | PN- General Surgery ---
See Addendum Subjective Subjective: Patient states she feels well. She is tolerating ice chips. Denies pain, n/v/f/ c. Patient reports gas and increased stool in her colostomy bag. Per nursing, patient has decreased MARYELLEN output from her drain, however did not recieve lasix yesterday. No overnight events. Objective Vital Signs and I&Os Vital Signs Date Time Temp Pulse Resp B/P B/P Pulse O2 O2 Flow FiO2 Mean Ox Delivery Rate 03/03 0400 93 Nasal 1.0L Cannula 03/03 0000 93 Nasal 1.0L Cannula 03/03 0000 98.4 76 20 148/78 93 Nasal 1.0L Cannula 03/02 2000 93 Nasal 1.0L Cannula 03/02 1600 Nasal 2.0L Cannula 03/02 1600 99.4 70 24 146/70 95 Nasal 2.0L Cannula 03/02 1200 95 Nasal 3.0L Cannula 03/02 0800 94 Nasal 2.0L Cannula 03/02 0800 99.3 74 20 130/60 94 Nasal 2.0L Cannula Intake & Output 03/03 0800 03/03 0000 03/02 1600 03/02 0800 03/02 0000 03/01 1600 Intake Total 1032 694 759 673 572 Output Total 880 109 327 6325 2620 Balance 152 54 -1 -328 -2048 Intake, IV 1032 694 759 673 542 Intake, Oral 0 0 0 Intake, Other 30 Number 1 Bowel Movements Output, 280 300 931 445 2009 Drainage Output, 400 150 0 Gastric Drainage Output, Stool 40 0 1 25 Output, Urine 200 150 130 150 720 Patient 195 lb Weight Weight Bed scale Measurement Method Physical Exam: Gen - awake an alert in NAD HEENT - ng tube with frothy output, dry mucus membranes Cardiac - s1s2 noted Lungs - coarse breath sounds throughout Abd - soft, incision closed with mt, healing well with no signs of infection, MARYELLEN straw colored with 1210 cc in last shift Ext - chronic le edema, no calf tenderness Current Medications: Current Medications Sig/Jacobo Start time Last Medication Dose Route Stop Time Status Admin Acetaminophen 1,000 MG Q12P PRN 02/24 0845 AC 02/28 N/A 1 UNIT IV 195 Albumin Human 12.5 GM Q6 02/27 1806 DC 03/02 IV 0506 Ampicillin Sodium/ 3,000 MG Q6 02/26 1200 AC 03/03 Sulbactam Sodium IV 0543 Sodium Chloride 100 ML Dextrose/Water 1,000 ML Q13H 03/01 1315 AC 03/03 IV 0543 Fluconazole 400 MG Q24 03/03 1000 AC Sodium Chloride 200 ML IV Fluconazole 400 MG Q48 03/02 1000 DC 03/02 Sodium Chloride 200 ML IV 1025 Heparin Sodium 25,000 UNIT Q24H 03/02 1130 AC 03/02 (Porcine) IV 1522 Sodium Chloride 500 ML Pantoprazole Sodium 40 MG DAILY 02/26 2038 AC 03/02 IV 0837 Potassium Chloride 20 MEQ Q1H 03/03 0630 UNVr IV 03/03 0731 Potassium Chloride 20 MEQ Q1H 03/02 0615 DC 03/02 IV 03/02 0716 0837 Results Last 48 Hours of Labs: Laboratory Tests 03/03 03/02 03/02 0500 2120 UNK Chemistry Sodium (137 - 145 mmol/L) 146 H Potassium (3.5 - 5.1 mmol/L) 3.3 L Chloride (98 - 107 mmol/L) 111 H Carbon Dioxide (22 - 30 mmol/L) 27 Anion Gap (5 - 16) 8 BUN (7 - 17 mg/dL) 22 H Creatinine (0.5 - 1.0 mg/dL) 0.9 Estimated GFR (>60 ml/min) > 60 Glucose (65 - 99 mg/dL) 132 H Calcium (8.4 - 10.2 mg/dL) 7.1 L Phosphorus (2.5 - 4.5 mg/dL) 2.7 Magnesium (1.6 - 2.3 mg/dL) 1.9 Total Bilirubin (0.2 - 1.3 mg/dL) 1.8 H AST (14 - 36 U/L) 32 ALT (9 - 52 U/L) 55 H Albumin (3.5 - 5.0 g/dL) 2.0 L Coagulation APTT (25 - 37 SEC) 70 H Hematology CBC w Diff NO MAN DIFF REQ WBC (4.8 - 10.8 /CUMM) 21.0 H RBC (4.20 - 5.40 /CUMM) 3.15 L Hgb (12.0 - 16.0 G/DL) 8.8 L Hct (37 - 47 %) 26.8 L MCV (81.0 - 99.0 FL) 85.1 MCH (27.0 - 31.0 PG) 27.9 MCHC (33.0 - 37.0 G/DL) 32.8 L RDW (11.5 - 14.5 %) 16.6 H Plt Count (130 - 400 /CUMM) 172 MPV (7.4 - 10.4 FL) 9.6 Gran % (42.2 - 75.2 %) 93.9 H Lymphocytes % (20.5 - 51.1 %) 3.3 L Monocytes % (1.7 - 9.3 %) 2.3 Eosinophils % (0 - 5 %) 0.5 Basophils % (0.0 - 2.0 %) 0 Absolute Granulocytes (1.4 - 6.5 /CUMM) 19.7 H Absolute Lymphocytes (1.2 - 3.4 /CUMM) 0.7 L Absolute Monocytes (0.10 - 0.60 /CUMM) 0.5 Absolute Eosinophils (0.0 - 0.7 /CUMM) 0.1 Absolute Basophils (0.0 - 0.2 /CUMM) 0 Miscellaneous Ref Lab Test Result Pending Ref Lab Test Result Pending 03/02 03/01 03/01 0410 1322 1220 Blood Gas pH (7.35 - 7.45 PH) 7.51 H pCO2 (35 - 45 TORR) 18 L pO2 (80 - 100 TORR) 121 H HCO3 (21 - 28 MEQ/L) 14 L ABG O2 Sat (Measured) (>96.0 %) 97.0 Carboxyhemoglobin (1.5 - 5.0 %) 0.1 L O2 Concentration % 35% O2 Delivery Method T-PIECE Chemistry Sodium (137 - 145 mmol/L) 149 H Potassium (3.5 - 5.1 mmol/L) 3.2 L Chloride (98 - 107 mmol/L) 113 H Carbon Dioxide (22 - 30 mmol/L) 26 Anion Gap (5 - 16) 11 BUN (7 - 17 mg/dL) 32 H Creatinine (0.5 - 1.0 mg/dL) 1.1 H Estimated GFR (>60 ml/min) 49 L Glucose (65 - 99 mg/dL) 119 H Calcium (8.4 - 10.2 mg/dL) 7.3 L Phosphorus (2.5 - 4.5 mg/dL) 3.1 Magnesium (1.6 - 2.3 mg/dL) 1.9 Total Bilirubin (0.2 - 1.3 mg/dL) 1.9 H AST (14 - 36 U/L) 40 H ALT (9 - 52 U/L) 67 H Albumin (3.5 - 5.0 g/dL) 2.1 L Hematology CBC w Diff MAN DIFF ORDERED WBC (4.8 - 10.8 /CUMM) 21.4 H RBC (4.20 - 5.40 /CUMM) 3.01 L Hgb (12.0 - 16.0 G/DL) 8.3 L Hct (37 - 47 %) 25.3 L MCV (81.0 - 99.0 FL) 84.0 MCH (27.0 - 31.0 PG) 27.5 MCHC (33.0 - 37.0 G/DL) 32.8 L RDW (11.5 - 14.5 %) 16.4 H Plt Count (130 - 400 /CUMM) 148 MPV (7.4 - 10.4 FL) 9.2 Gran % (42.2 - 75.2 %) 94.7 H Lymphocytes % (20.5 - 51.1 %) 2.8 L Monocytes % (1.7 - 9.3 %) 2.3 Eosinophils % (0 - 5 %) 0.2 Basophils % (0.0 - 2.0 %) 0 Absolute Granulocytes (1.4 - 6.5 /CUMM) 20.2 H Segmented Neutrophils (42.2 - 75.2 %) 90 H Band Neutrophils (0.0 - 5.0 %) 1 Absolute Lymphocytes (1.2 - 3.4 /CUMM) 0.6 L Lymphocytes (20.5 - 51.1 %) 3 L Monocytes (1.7 - 9.3 %) 5 Absolute Monocytes (0.10 - 0.60 /CUMM) 0.5 Absolute Eosinophils (0.0 - 0.7 /CUMM) 0 Absolute Basophils (0.0 - 0.2 /CUMM) 0 Metamyelocytes (0.0 - 1.0 %) 1 Platelet Estimate (ADEQUATE) ADEQUATE Polychromasia 1+ Hypochromic-Microcytic 1+ Poikilocytosis 1+ Ovalocytes 1+ Miscellaneous Phlebotomy Draw Site RIGHT A-LINE Other Body Source Fld Total RBCs Counted (%) 100 Fluid Urea Nitrogen (mg/dL) 166 Fluid Creatinine (mg/dL) > 28 Assessment/Plan Assessment/Plan 71 M POD 5 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
[2017-03-03 05:57] LABS: HEMATOCRIT 26.8 % (37-47); MEAN CORPUSCULAR HGB CONC 32.8 G/DL (33.0-37.0)
--- NOTE | 2017-03-03 06:04 | PN- Resident CRCU ---
Subjective HPI/CRCU Issues: She was comfortable this am. No new complaints. No chest pain, shortness of breath or palpitations. Continued to have increased drain from the JPdrain. 24 Hour Events: Tm 100.0 HR 66-70 NSR BP 130-140 DBP 60-74 95% NC 1L I: 2702 O:2000 MARYELLEN drain 300ml Objective Vital Signs & I&O Last 8 Hrs of Vitals and I&O: Intake & Output 03/03 1600 Intake Total 1396 Output Total 445 Balance 951 Intake, IV 1156 Intake, Oral 240 Output, 200 Drainage Output, Stool 20 Output, Urine 225 Exam General Appearance: no apparent distress Other Physical Findings: General Appearance: no apparent distress Other Physical Findings: General Appearance: no apparent distress Other Physical Findings: General Appearance: no apparent distress, awake, Head: atraumatic, normal appearance Ears, Nose, Throat: normal pharynx, normal ENT inspection, hearing grossly normal Neck: normal inspection, supple, limited range of motion Respiratory: normal breath sounds, rhonchi Cardiovascular: regular rate/rhythm, edema Gastrointestinal: normal bowel sounds, soft, non-tender, MARYELLEN drain in place. No erythema Extremities: normal inspection, normal capillary refill, normal range of motion, no edema Cranial Nerves: normal hearing, normal speech, PERRL Skin: normal color, warm/dry, colostomy bag in place Skin Temp/Moisture Exam: Warm/Dry Sepsis Skin Exam (color): Normal for Ethnicity Back: could not be examined Sepsis Peripheral Pulse Location: Dorsalis Pedis Sepsis Peripheral Pulse Exam: Weak Sepsis Cap Refill Exam: <2 Sec Weaning Parameters NIF: 17 Minute Volume: 5.81 Resp rate: 28 Vt: 483 Heart Rate: 85 Weaning Schedule Start Time: 0946 Minute Volume: 6.25 Resp Rate: 25 Vt: 408 Heart Rate: 85 End Time: 1140 Start Time: 1140 Heart Rate: 86 Current Medications: Current Medications Sig/Jacobo Start time Last Medication Dose Route Stop Time Status Admin Acetaminophen 1,000 MG Q12P PRN 02/24 0845 AC 02/28 N/A 1 UNIT IV 1954 Ampicillin Sodium/ 3,000 MG Q6 03/06 1200 DC Sulbactam Sodium IV Sodium Chloride 100 ML Ampicillin Sodium/ 3,000 MG Q6 03/06 1200 AC 03/07 Sulbactam Sodium IV 0518 Sodium Chloride 100 ML Apixaban 10 MG BID 03/06 1009 AC 03/06 PO 03/12 2201 2145 Fluconazole 400 MG Q24 03/03 1000 AC 03/06 Sodium Chloride 200 ML IV 09 Furosemide 20 MG DAILY 03/05 2020 AC 03/06 IV 0906 Guaifenesin/Codeine 10 ML ONCE ONE 03/06 2215 DC 03/06 Phosphate PO 03/06 2216 2230 Heparin Sodium 25,000 UNIT Q24H 03/02 1130 DC 03/05 (Porcine) IV 220 Sodium Chloride 500 ML Pantoprazole Sodium 40 MG DAILY 02/26 2038 AC 03/06 IV 0906 Impression/Plan Impression/Problem List Impression: Ms Murphy is a 71-year-old woman with PMHx of arthritis, chronic b/l lower extremity edema presented to [facility] on 02/22 with complaints of burning during urination and increased frequency and urgency, along with extreme weakness anorexia, and a 10 pound weight loss. She was initially being managed for sepsis of urological origin and a right leg DVT. She subsequently developed diarrhea, abdominal pain, hypotension and tachypnea requiring ICU admission. Chest X-ray shows air under the diaphragm and coupled with the findings of her earlier CT abdomen showing colonic thickening and her feculent urine, there is concern for colonic perforation. She is being evaluated by General Surgery for emergent exploratory laparotomy. Plan 1. Perforated colon with peritonitis and possible colovesical fistula * s/p surgery POD 4. 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 She has been putting out large volume in MARYELLEN drain after iv lasix, likely from vesiculorectal fistula that is draining into the peritoneal cavity. * Cystoscopy to be done by Dr. Jarquin to evaluate the leak from the bladder. * currently on unasyn. * monitor vitals closely. * Advance diet after she is evaluated by Dr. Jarquin, if any further procedure is planned. 2. Sepsis and hypotension * keep MAP >65 mmhg * Continue unasyn, and add fluconazole corrected to renal dosing. * White count improving * Remove IJ after making sure that there are no more procedures. 3. Metabolic acidosis * Patient had lactic acidosis from sepsis * Improved 4. Right leg DVT * IV heparin has been restarted. * No complications so far. 5. Anemia * Likely GI bleed. CT abdmomen did not reveal any intra-abdominal bleeding. * Stable so far. Housekeepin. DVT prophylaxis: ALPS+ heparin 2. Ventilation management: extubated. Problem List: 1. Colovesical fistula 2. Leukocytosis 3. Sepsis 4. Colitis Pain Ratin Tomorrow's Labs & Rationales: cbc icu bundle Plan DVT/Prophylaxis: mechanical, pharmacological
[2017-03-03 06:11] LABS: ABSOLUTE BASOPHIL COUNT 0 /CUMM (0.0-0.2); ABSOLUTE EOSINOPHIL COUNT 0.1 /CUMM (0.0-0.7); ABSOLUTE GRANULOCYTE CT 19.7 /CUMM (1.4-6.5); ABSOLUTE LYMPH COUNT 0.7 /CUMM (1.2-3.4); ABSOLUTE MONOCYTE COUNT 0.5 /CUMM (0.10-0.60); BASOPHIL % 0 % (0.0-2.0); EOSINOPHIL % 0.5 % (0-5); MEAN CORPUSCULAR HGB 27.9 PG (27.0-31.0); MEAN CORPUSCULAR VOLUME 85.1 FL (81.0-99.0); MEAN PLATELET VOLUME 9.6 FL (7.4-10.4); RBC DISTRIBUTION WIDTH 16.6 % (11.5-14.5); RED BLOOD CELL CT 3.15 /CUMM (4.20-5.40)
[2017-03-03 06:23] LABS: GRANULOCYTE % 93.9 % (42.2-75.2); PLATELET COUNT 172 /CUMM (130-400)
--- NOTE | 2017-03-03 08:47 | PN- CRCU ---
Subjective HPI/Critical Care Issues: No overnight events. Stable respiratory status post extubation. The patient feels well and is doing better overall. She offers no new complaints. Objective Current Medications: Current Medications Sig/Jacobo Start time Last Medication Dose Route Stop Time Status Admin Acetaminophen 1,000 MG Q12P PRN 02/24 0845 02/28 N/A 1 UNIT IV 1955 Albumin Human 12.5 GM Q6 02/27 1806 DC 03/02 IV 0506 Ampicillin Sodium/ 3,000 MG Q6 02/26 1200 AC 03/03 Sulbactam Sodium IV 0543 Sodium Chloride 100 ML Dextrose/Water 1,000 ML Q13H 03/01 1315 AC 03/03 IV 0543 Fluconazole 400 MG Q24 03/03 1000 AC Sodium Chloride 200 ML IV Fluconazole 400 MG Q48 03/02 1000 DC 03/02 Sodium Chloride 200 ML IV 1025 Heparin Sodium 25,000 UNIT Q24H 03/02 1130 AC 03/02 (Porcine) IV 1522 Sodium Chloride 500 ML Magnesium Sulfate 1 GM Q2H 03/03 0700 03/03 Dextrose/Water 100 ML IV 03/03 1059 0817 Pantoprazole Sodium 40 MG DAILY 02/26 2039 AC 03/03 IV 0817 Potassium Chloride 20 MEQ Q1H 03/03 0630 DC 03/03 IV 03/03 0731 0644 Vital Signs & I&O Last 24 Hrs of Vitals and I&O: Vital Signs Date Time Temp Pulse Resp B/P B/P Pulse O2 O2 Flow FiO2 Mean Ox Delivery Rate 03/03 0400 93 Nasal 1.0L Cannula 03/03 0000 93 Nasal 1.0L Cannula 03/03 0000 98.4 76 20 148/78 93 Nasal 1.0L Cannula 03/02 1999 93 Nasal 1.0L Cannula 03/02 1600 Nasal 2.0L Cannula 03/02 1600 99.4 70 24 146/70 95 Nasal 2.0L Cannula 03/02 1200 95 Nasal 3.0L Cannula Intake & Output 03/03 1600 03/03 0800 03/03 0000 Intake Total 976 1032 Output Total 480 880 Balance 496 152 Intake, IV 976 1032 Intake, Oral 0 Number 1 1 Bowel Movements Output, 200 280 Drainage Output, 100 400 Gastric Drainage Output, Urine 180 200 General Appearance: no apparent distress, doing well post extubation Head: atraumatic, normal appearance Neck: normal inspection, supple, limited range of motion Respiratory: rhonchi Cardiovascular: regular rate/rhythm, edema Gastrointestinal: soft, non-tender, absent bowel sounds, dressings in place Extremities: normal inspection, normal capillary refill, no edema Skin: normal color, warm/dry, colostomy bag in place Skin Temp/Moisture Exam: Warm/Dry Sepsis Skin Exam (color): Normal for Ethnicity Back: could not be examined Results Last 24 Hrs of Lab Results: Laboratory Tests 03/03/17 0500: Anion Gap 8, Estimated GFR > 60, Glucose 132 H, Calcium 7.1 L, Phosphorus 2.7, Magnesium 1.9, Total Bilirubin 1.8 H, AST 32, ALT 55 H, Albumin 2.0 L, CBC w Diff NO MAN DIFF REQ, RBC 3.15 L, MCV 85.1, MCH 27.9, MCHC 32.8 L, RDW 16.6 H , MPV 9.6, Gran % 93.9 H, Lymphocytes % 3.3 L, Monocytes % 2.3, Eosinophils % 0.5, Basophils % 0, Absolute Granulocytes 19.7 H, Absolute Lymphocytes 0.7 L, Absolute Monocytes 0.5, Absolute Eosinophils 0.1, Absolute Basophils 0 03/02/17 2120: APTT 70 H 03/02/17 1000: Ref Lab Test Result Pending, Ref Lab Test Result Pending Impression/Plan Impression/Plan Impression/Plan: 1. Polymicrobial sepsis/septic shock secondary to abdominal perforation with peritonitis, s/p Hartmans, left oophorectomy and skin biopsy of the abdomen. 2. Respiratory failure, now with stable respiratory status post extubation. 3. Improved metabolic acidosis secondary to peritonitis/septic shock. 4. Acute kidney injury, possible ATN due to prolonged hypotension. 5. Electrolyte abnormalities - repletion underway. 6. Transaminitis secondary to septic shock. 7. Acute blood loss anemia, now stable, status post transfusion. 8. Urine culture positive for Escherichia coli, pansensitive. Recommendations: * Discontinue right IJ today. * Continue to follow up culture data. * Continue IV Unasyn and fluconasole per ID recommendations. * Continue with pain control. * DVT and GI prophylaxis at all times. * Continue all supportive care. * Out of bed to chair today. * Continue sips, advance to clears today as per surgery.
--- NOTE | 2017-03-03 10:02 | PN- Infect Dx ---
Subjective Subjective: Afebrile without complaints. Objective Last 24 Hrs of Vital Signs/I&O Vital Signs Date Time Temp Pulse Resp B/P B/P Pulse O2 O2 Flow FiO2 Mean Ox Delivery Rate 03/03 0400 93 Nasal 1.0L Cannula 03/03 0000 93 Nasal 1.0L Cannula 03/03 0000 98.4 76 20 148/78 93 Nasal 1.0L Cannula 03/02 1999 93 Nasal 1.0L Cannula 03/02 1599 Nasal 2.0L Cannula 03/02 1599 99.4 70 24 146/70 95 Nasal 2.0L Cannula 03/02 1200 95 Nasal 3.0L Cannula Intake & Output 03/03 1600 03/03 0800 03/03 0000 Intake Total 976 1032 Output Total 480 880 Balance 496 152 Intake, IV 976 1032 Intake, Oral 0 Number 1 1 Bowel Movements Output, 200 280 Drainage Output, 100 400 Gastric Drainage Output, Urine 180 200 Physical Exam Other Physical Findings: She appears comfortable in no acute distress Neck right IJ triple-lumen catheter with no inflammation at the site Lungs decreased breath sounds at both bases Heart regular rhythm with no murmur Abdomen is soft, nontender with positive bowel sounds; colostomy with stool in the bag; incision clean, with no erythema or drainage; MARYELLEN drain with straw- colored fluid, with 1210 mL output yesterday and 200 mL overnight Extremities 1+ edema both lower extremities Pete catheter remains in place Results Last 24 Hours of Lab Results: Laboratory Tests 03/03 03/03 03/02 0930 0500 2120 Chemistry Sodium (137 - 145 mmol/L) 146 H Potassium (3.5 - 5.1 mmol/L) 3.3 L Chloride (98 - 107 mmol/L) 111 H Carbon Dioxide (22 - 30 mmol/L) 27 Anion Gap (5 - 16) 8 BUN (7 - 17 mg/dL) 22 H Creatinine (0.5 - 1.0 mg/dL) 0.9 Estimated GFR (>60 ml/min) > 60 Glucose (65 - 99 mg/dL) 132 H Calcium (8.4 - 10.2 mg/dL) 7.1 L Phosphorus (2.5 - 4.5 mg/dL) 2.7 Magnesium (1.6 - 2.3 mg/dL) 1.9 Total Bilirubin (0.2 - 1.3 mg/dL) 1.8 H AST (14 - 36 U/L) 32 ALT (9 - 52 U/L) 55 H Albumin (3.5 - 5.0 g/dL) 2.0 L Coagulation APTT (25 - 37 SEC) Pending 70 H Hematology CBC w Diff NO MAN DIFF REQ WBC (4.8 - 10.8 /CUMM) 21.0 H RBC (4.20 - 5.40 /CUMM) 3.15 L Hgb (12.0 - 16.0 G/DL) 8.8 L Hct (37 - 47 %) 26.8 L MCV (81.0 - 99.0 FL) 85.1 MCH (27.0 - 31.0 PG) 27.9 MCHC (33.0 - 37.0 G/DL) 32.8 L RDW (11.5 - 14.5 %) 16.6 H Plt Count (130 - 400 /CUMM) 172 MPV (7.4 - 10.4 FL) 9.6 Gran % (42.2 - 75.2 %) 93.9 H Lymphocytes % (20.5 - 51.1 %) 3.3 L Monocytes % (1.7 - 9.3 %) 2.3 Eosinophils % (0 - 5 %) 0.5 Basophils % (0.0 - 2.0 %) 0 Absolute Granulocytes (1.4 - 6.5 /CUMM) 19.7 H Absolute Lymphocytes (1.2 - 3.4 /CUMM) 0.7 L Absolute Monocytes (0.10 - 0.60 /CUMM) 0.5 Absolute Eosinophils (0.0 - 0.7 /CUMM) 0.1 Absolute Basophils (0.0 - 0.2 /CUMM) 0 03/02 UNK Miscellaneous Ref Lab Test Result Pending Ref Lab Test Result Pending Last 24 Hours of Caleb Results: Blood cultures February 28 negative Urine culture February 28 greater than 100,000 colonies of probable yeast not Olimpia albicans Assessment/Plan Impression: Overall improved with temperatures remaining normal and white blood cell count decreased, though still elevated, now 5 days status post sigmoid colectomy with 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 She remains on Unasyn and Fluconazole for polymicrobial sepsis, with Clostridium and Escherichia coli isolated from the blood cultures and with these organisms, as well as alpha strep, Bacteroides and yeast (possibly non-albicans) isolated from the OR cultures. The yeast has been sent out for identification and sensitivities but, as she is improving, she can be continued on Fluconazole pending these results. Her urine culture has also grown yeast, likely secondary to the colovesical fistula, with yeast in her sputum representing oropharyngeal contamination. The concern regarding a bladder leak into the peritoneum is noted, and she is to be evaluated by Urology. She is now back on Heparin, status post a diagnosis of a right lower extremity DVT preop. Suggestion: 1. Would remove right IJ as soon as possible 2. Await ID and sensitivities of her Olimpia species 3. Continue Unasyn and Fluconazole Sera Wynn MD is covering over the weekend
[2017-03-03 10:15] LABS: PTT 67 SEC (25-37)
--- NOTE | 2017-03-03 11:41 | PN- Cardiology ---
Subjective Subjective: Awake, alert, and without complaints. Multiple runs of NSVT noted on monitoring. Objective Vital Signs and I&Os Vital Signs Date Time Temp Pulse Resp B/P B/P Pulse O2 O2 Flow FiO2 Mean Ox Delivery Rate 03/03 0400 93 Nasal 1.0L Cannula 03/03 0000 93 Nasal 1.0L Cannula 03/03 0000 98.4 76 20 148/78 93 Nasal 1.0L Cannula 03/02 1999 93 Nasal 1.0L Cannula 03/02 1600 Nasal 2.0L Cannula 03/02 1600 99.4 70 24 146/70 95 Nasal 2.0L Cannula 03/02 1200 95 Nasal 3.0L Cannula Intake & Output 03/03 1600 03/03 0800 03/03 0000 03/02 1600 03/02 0803/02 0000 Intake Total 976 1032 694 759 673 Output Total 480 880 963 690 6594 Balance 496 152 54 -1 -328 Intake, IV 976 1032 694 759 673 Intake, Oral 0 0 0 Number 1 1 Bowel Movements Output, 200 280 300 630 850 Drainage Output, 100 400 150 Gastric Drainage Output, Stool 40 0 1 Output, Urine 180 200 150 130 150 Physical Exam: Well-developed, well-nourished elderly female in no acute distress with oxygen in place. Vital signs: See above. Neck: No JVD, no bruits. Lungs: Occasional rhonchi and decreased breath sounds at bases. Heart: S1, S2 with no murmur, gallop, or rub appreciated. Abdomen: Soft, nontender, positive bowel sounds, colostomy bag in place. Extremities: 1+ bilateral lower extremity edema. Current Medications: Current Medications Sig/Jacobo Start time Last Medication Dose Route Stop Time Status Admin Acetaminophen 1,000 MG Q12P PRN 02/24 0845 AC 02/28 N/A 1 UNIT IV 1955 Ampicillin Sodium/ 3,000 MG Q6 02/26 1200 AC 03/03 Sulbactam Sodium IV 0543 Sodium Chloride 100 ML Dextrose/Water 1,000 ML Q13H 03/01 1315 DC 03/03 IV 0543 Fluconazole 400 MG Q24 03/03 1000 AC 03/03 Sodium Chloride 200 ML IV 1029 Heparin Sodium 25,000 UNIT Q24H 03/02 1130 AC 03/03 (Porcine) IV 1034 Sodium Chloride 500 ML Magnesium Sulfate 1 GM Q2H 03/03 0700 DC 03/03 Dextrose/Water 100 ML IV 03/03 1059 0924 Pantoprazole Sodium 40 MG DAILY 02/26 2038 AC 03/03 IV 0817 Potassium Chloride 20 MEQ Q10H 03/03 1045 AC Dextrose/Water 1,000 ML IV Potassium Chloride 20 MEQ Q1H 03/03 1000 DC IV 03/03 1001 Potassium Chloride 20 MEQ Q1H 03/03 0630 DC 03/03 IV 03/03 0731 0644 Results Last 48 Hrs of Labs/Mics: Laboratory Tests 03/03/17 0930: APTT 67 H 03/03/17 0500: Anion Gap 8, Estimated GFR > 60, Glucose 132 H, Calcium 7.1 L, Phosphorus 2.7, Magnesium 1.9, Total Bilirubin 1.8 H, AST 32, ALT 55 H, Albumin 2.0 L, CBC w Diff NO MAN DIFF REQ, RBC 3.15 L, MCV 85.1, MCH 27.9, MCHC 32.8 L, RDW 16.6 H , MPV 9.6, Gran % 93.9 H, Lymphocytes % 3.3 L, Monocytes % 2.3, Eosinophils % 0.5, Basophils % 0, Absolute Granulocytes 19.7 H, Absolute Lymphocytes 0.7 L, Absolute Monocytes 0.5, Absolute Eosinophils 0.1, Absolute Basophils 0 03/02/17 2120: APTT 70 H 03/02/17 1000: Ref Lab Test Result Pending, Ref Lab Test Result Pending 03/02/17 0410: Anion Gap 11, Estimated GFR 49 L, Glucose 119 H, Calcium 7.3 L, Phosphorus 3.1, Magnesium 1.9, Total Bilirubin 1.9 H, AST 40 H, ALT 67 H, Albumin 2.1 L , CBC w Diff MAN DIFF ORDERED, RBC 3.01 L, MCV 84.0, MCH 27.5, MCHC 32.8 L, RDW 16.4 H, MPV 9.2, Gran % 94.7 H, Lymphocytes % 2.8 L, Monocytes % 2.3, Eosinophils % 0.2, Basophils % 0, Absolute Granulocytes 20.2 H, Segmented Neutrophils 90 H, Band Neutrophils 1, Absolute Lymphocytes 0.6 L, Lymphocytes 3 L, Monocytes 5, Absolute Monocytes 0.5, Absolute Eosinophils 0, Absolute Basophils 0, Metamyelocytes 1, Platelet Estimate ADEQUATE, Polychromasia 1+, Hypochromic-Microcytic 1+, Poikilocytosis 1+, Ovalocytes 1+, Fld Total RBCs Counted 100 03/01/17 1322: Fluid Urea Nitrogen 166, Fluid Creatinine > 28 03/01/17 1220: pH 7.51 H, pCO2 18 L, pO2 121 H, HCO3 14 L, ABG O2 Sat (Measured) 97.0, Carboxyhemoglobin 0.1 L, O2 Concentration % 35%, O2 Delivery Method T-PIECE, Phlebotomy Draw Site RIGHT A-LINE Recent Imaging Studies: CXR 03/01/2017: 1. Endotracheal tube tip 4.5 cm above the isha. 2. Enteric tube tip not included in the upper abdomen. 3. Right jugular central venous line tip in cavoatrial junction. 4. No significant change in pulmonary edema with small bilateral pleural effusions and associated bibasilar opacities, likely related to atelectasis. Assessment/Plan Assessment/Plan [id number] w/ hx OA, ch bilat LE edema presented 02/22/2017 w/ c/o urinary symptoms, profound weakness, anorexia, & 10 lb wt loss w/ labs revealing leukocytosis, UA w/ packed WBCs/bacteria, + nitrites & lg esterase, etc. w/ appropriate mgt (volume, antimicrobial therapy, etc.) for UTI, but developed worsening abd pain w/ diarrhea (C. diff neg) & CT abd/pelvis 02/24/2017 revealing colonic thickening w/o free air, but who became hemodynamically unstable early on 02/26/2017 from septic shock 2/2 perforated diverticulitis that prompted a colectomy and takedown of colovesical fistula that was discovered and who has continued to improve with stable hemodynamics, extubation , resumption of anticoagulation for preoperatively discovered nonocclusive thrombus, etc., but who we were asked to reevaluate in regard to earlier runs of NSVT and whose CXR reveals continued evidence of vascular congestion. She was found to be hypokalemic w/ most recent potassium from today (03/03/2017) at 5;00 a.m. 3.3 mEq/L. This is being repleted and was likely responsible for the earlier ectopy. Her magnesium was found to be 1.9 mEq/L. After we document her potassium is acceptable and she is no longer having ventricular ectopy would consider diuresis. Renal function has continued to improve. H/H stable. Continue telemetry? Not applicable (In ICU.)
[2017-03-03 12:00] VITALS: BP 150/64
--- NOTE | 2017-03-03 13:14 | PN- Att Addend ---
Attending Addendum Attending Brief Note Patient looks comfortable extubated offers no complaints. Had some arrhythmias may be related to electrolyte imbalance and also was seen by urologist and will perform a cystoscopy Temp max 99 4 white count 21,000. No other changes will continue treatment as per consultants recommendations. Intake & Output 03/03 1600 03/03 0400 03/02 1600 03/02 0400 03/01 1600 03/01 0400 Intake Total 976 1032 1453 880 371 4748 Output Total 050 967 2285 1001 5520 2570 Balance 496 152 53 -328 -4548 -420 Intake, IV 976 1032 1453 793 596 3362 Intake, Oral 0 0 0 0 Intake, Other 30 Number 1 1 Bowel Movements Output, 200 280 200 435 4719 1370 Drainage Output, 100 400 150 50 100 Gastric Drainage Output, Stool 40 1 25 0 Output, Urine 180 200 266 492 4863 1100 Patient 195 lb Weight Weight Bed scale Measurement Method Current Medications Sig/Jacobo Start time Last Medication Dose Route Stop Time Status Admin Acetaminophen 1,000 MG Q12P PRN 02/24 0845 02/28 N/A 1 UNIT IV 1955 Ampicillin Sodium/ 3,000 MG Q6 02/26 1200 AC 03/03 Sulbactam Sodium IV 1300 Sodium Chloride 100 ML Dextrose/Water 1,000 ML Q13H 03/01 1315 DC 03/03 IV 0543 Fluconazole 400 MG Q24 03/03 1000 AC 03/03 Sodium Chloride 200 ML IV 1029 Heparin Sodium 25,000 UNIT Q24H 03/02 1130 AC 03/03 (Porcine) IV 1034 Sodium Chloride 500 ML Magnesium Sulfate 1 GM Q2H 03/03 0700 CA 03/03 Dextrose/Water 100 ML IV 03/03 1059 0924 Pantoprazole Sodium 40 MG DAILY 02/26 2038 AC 03/03 IV 0817 Potassium Chloride 20 MEQ Q10H 03/03 1045 AC 03/03 Dextrose/Water 1,000 ML IV 1134 Potassium Chloride 20 MEQ Q1H 03/03 1000 DC 03/03 IV 03/03 1001 1300 Potassium Chloride 20 MEQ Q1H 03/03 0630 DC 03/03 IV 03/03 0731 1121 Laboratory Tests 03/03/17 0930: APTT 67 H 03/03/17 0500: Anion Gap 8, Estimated GFR > 60, Glucose 132 H, Calcium 7.1 L, Phosphorus 2.7, Magnesium 1.9, Total Bilirubin 1.8 H, AST 32, ALT 55 H, Albumin 2.0 L, CBC w Diff NO MAN DIFF REQ, RBC 3.15 L, MCV 85.1, MCH 27.9, MCHC 32.8 L, RDW 16.6 H , MPV 9.6, Gran % 93.9 H, Lymphocytes % 3.3 L, Monocytes % 2.3, Eosinophils % 0.5, Basophils % 0, Absolute Granulocytes 19.7 H, Absolute Lymphocytes 0.7 L, Absolute Monocytes 0.5, Absolute Eosinophils 0.1, Absolute Basophils 0 03/02/17 2120: APTT 70 H 03/02/17 1000: Ref Lab Test Result Pending, Ref Lab Test Result Pending 03/02/17 0410: Anion Gap 11, Estimated GFR 49 L, Glucose 119 H, Calcium 7.3 L, Phosphorus 3.1, Magnesium 1.9, Total Bilirubin 1.9 H, AST 40 H, ALT 67 H, Albumin 2.1 L , CBC w Diff MAN DIFF ORDERED, RBC 3.01 L, MCV 84.0, MCH 27.5, MCHC 32.8 L, RDW 16.4 H, MPV 9.2, Gran % 94.7 H, Lymphocytes % 2.8 L, Monocytes % 2.3, Eosinophils % 0.2, Basophils % 0, Absolute Granulocytes 20.2 H, Segmented Neutrophils 90 H, Band Neutrophils 1, Absolute Lymphocytes 0.6 L, Lymphocytes 3 L, Monocytes 5, Absolute Monocytes 0.5, Absolute Eosinophils 0, Absolute Basophils 0, Metamyelocytes 1, Platelet Estimate ADEQUATE, Polychromasia 1+, Hypochromic-Microcytic 1+, Poikilocytosis 1+, Ovalocytes 1+, Fld Total RBCs Counted 100 03/01/17 1322: Fluid Urea Nitrogen 166, Fluid Creatinine > 28 03/01/17 1220: pH 7.51 H, pCO2 18 L, pO2 121 H, HCO3 14 L, ABG O2 Sat (Measured) 97.0, Carboxyhemoglobin 0.1 L, O2 Concentration % 35%, O2 Delivery Method T-PIECE, Phlebotomy Draw Site RIGHT A-LINE 03/01/17 0350: Anion Gap 13, Estimated GFR 40 L, Glucose 68, Calcium 6.8 L, Phosphorus 2.7, Magnesium 1.7, Total Bilirubin 2.2 H, AST 84 H, ALT 91 H, Albumin 2.0 L, CBC w Diff MAN DIFF ORDERED, RBC 3.23 L, MCV 83.7, MCH 27.2, RDW 15.7 H, MPV 8.8, Gran % 96.7 H, Lymphocytes % 3.0 L, Monocytes % 0.1 L, Eosinophils % 0.1, Basophils % 0.1, Absolute Granulocytes 27.8 H, Segmented Neutrophils 78 H, Band Neutrophils 10 H, Absolute Lymphocytes 0.9 L, Lymphocytes 4 L, Monocytes 6, Absolute Monocytes 0 L, Eosinophils 1, Absolute Eosinophils 0, Absolute Basophils 0, Metamyelocytes 1, Platelet Estimate ADEQUATE, Polychromasia 1+, Hypochromic-Microcytic 1+, Anisocytosis 1+, Blaine Cells 1+, Elliptocytes 1+, PUBS MCHC 32.5 L 02/28/172009: Anion Gap 12, Estimated GFR 37 L, BUN/Creatinine Ratio 31.4 H, CBC w Diff MAN DIFF ORDERED, RBC 3.14 L, MCV 83.8, MCH 27.6, RDW 15.3 H, MPV 9.6, Gran % 97.0 H, Lymphocytes % 2.4 L, Monocytes % 0.5 L, Eosinophils % 0.1, Basophils % 0, Absolute Granulocytes 28.9 H, Segmented Neutrophils 97 H, Absolute Lymphocytes 0.7 L, Lymphocytes 2 L, Monocytes 1 L, Absolute Monocytes 0.1, Absolute Eosinophils 0, Absolute Basophils 0, Nucleated RBCs 1 H, Platelet Estimate ADEQUATE, Hypochromic-Microcytic 1+, Poikilocytosis 1+, Anisocytosis 1+, Target Cells 1+, PUBS MCHC 33.0 Microbiology 02/29 2044 BLOOD: Blood Culture - RES 02/28 2029 BLOOD: Blood Culture - RES 02/28 2021 LOWER RESP: Respiratory Culture - COMP YEAST 02/28 2021 LOWER RESP: Gram Stain - COMP 02/28 2019 URINE ROUT: Urine Culture - COMP YEAST NOT SATNAM [employer]BICANS Microbiology 02/29 2044 BLOOD: Blood Culture - RES 02/28 2029 BLOOD: Blood Culture - RES 02/28 2021 LOWER RESP: Respiratory Culture - COMP YEAST 02/28 2021 LOWER RESP: Gram Stain - COMP 02/28 2019 URINE ROUT: Urine Culture - COMP YEAST NOT [employer]BICANS Vital Signs Date Time Temp Pulse Resp B/P B/P Pulse O2 O2 Flow FiO2 Mean Ox Delivery Rate 03/03 0800 Nasal 1.0L Cannula 03/03 0400 93 Nasal 1.0L Cannula 03/03 0000 93 Nasal 1.0L Cannula 03/03 0000 98.4 76 20 148/78 93 Nasal 1.0L Cannula 03/02 1999 93 Nasal 1.0L Cannula 03/02 1600 Nasal 2.0L Cannula 03/02 1600 99.4 70 24 146/70 95 Nasal 2.0L Cannula
[2017-03-03 16:00] VITALS: BP 142/80
--- NOTE | 2017-03-03 18:53 | Cons- Urology ---
General Information and HPI Consulting Request Date of Consult: 03/03/17 Requested By: Vaughn Jacobs Reason for Consult: fecaluria Source of Information: patient, Dr. Jacobs Exam Limitations: no limitations History of Present Illness: Ms. Senait Murphy is 71-year-old female with a history of arthritis, chronic bilateral lower extremity edema presented to the ED on 02/22/2017 with complaints of frequency, urgency, and dysuria, as well as, profound weakness, anorexia and a 10 pound weight loss with laboratory work revealing leukocytosis, UA with packed WBCs/bacteria, positive nitrites and large esterase , etc. and was appropriately treated with volume, antimicrobial therapy, etc. for presumed UTI, but developed worsening abdominal pain with diarrhea (C. difficile negative) and CT abdomen/pelvis 02/24/2017 revealing colonic thickening without free air. Blood culture was positive for Escherichia coli and Clostridium species. 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 A drain was placed at the time and a iglesias was also in place. She has subsequently developed decreased urine output and increased abd drain output. Allergies/Medications Allergies: Coded Allergies: shrimp (Severe, SEVERE HIVES 12/29/16) Home Med List: No Known Home Medications Current Medications: Current Medications Sig/Jacobo Start time Last Medication Dose Route Stop Time Status Admin Acetaminophen 1,000 MG Q12P PRN 02/24 0845 02/28 N/A 1 UNIT IV 1955 Ampicillin Sodium/ 3,000 MG Q6 02/26 1200 AC 03/03 Sulbactam Sodium IV 1810 Sodium Chloride 100 ML Dextrose/Water 1,000 ML Q13H 03/01 1315 DC 03/03 IV 0543 Fluconazole 400 MG Q24 03/03 1000 AC 03/03 Sodium Chloride 200 ML IV 1029 Heparin Sodium 25,000 UNIT Q24H 03/02 1130 AC 03/03 (Porcine) IV 1034 Sodium Chloride 500 ML Magnesium Sulfate 1 GM Q2H 03/03 0700 RI 03/03 Dextrose/Water 100 ML IV 03/03 1059 0924 Pantoprazole Sodium 40 MG DAILY 02/26 2039 AC 03/03 IV 0817 Potassium Chloride 20 MEQ Q10H 03/03 1045 AC 03/03 Dextrose/Water 1,000 ML IV 1134 Potassium Chloride 20 MEQ Q1H 03/03 1000 DC 03/03 IV 03/03 1001 1300 Potassium Chloride 20 MEQ Q1H 03/03 0630 DC 03/03 IV 03/03 0731 1121 Past History Medical History Blood Transfusion Hx: No Neurological: NONE EENT: NONE Cardiovascular: NONE Respiratory: NONE Gastrointestinal: NONE Hepatic: NONE Renal: NONE Musculoskeletal: osteoarthritis Psychiatric: NONE Endocrine: NONE Blood Disorders: DVT Cancer(s): NONE 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 Psychosocial History Where Do You Live? Home Who Do You Live With? self Services at Home: None Primary Language: Mohawk Smoking Status: Never Smoked ETOH Use: occasional use Illicit Drug Use: denies illicit drug use Functional Ability ADLs Independent: dressing, eating, toileting, bathing. Ambulation: cane IADLs Independent: shopping, housework, finances, food prep, telephone, transportation , medication admin. 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 EENTM: Reports: see HPI. Cardiovascular: Reports: see HPI. Respiratory: Reports: see HPI. GI: Reports: see HPI. Genitourinary: Reports: see HPI. Musculoskeletal: Reports: see HPI. Skin: Reports: see HPI. Neurological/Psychological: Reports: see HPI. Hematologic/Endocrine: Reports: see HPI. Immunologic/Allergic: Reports: see HPI. Exam & Diagnostic Data Vital Signs and I&O Vital Signs Date Time Temp Pulse Resp B/P B/P Pulse O2 O2 Flow FiO2 Mean Ox Delivery Rate 03/03 1755 Nasal 1.0L Cannula 03/03 1600 94 Nasal 1.0L Cannula 03/03 1600 98.6 74 24 142/80 94 Nasal 1.0L Cannula 03/03 1200 94 Nasal 1.0L Cannula 03/03 1200 98.5 75 20 150/64 94 Nasal 1.0L Cannula 03/03 0800 Nasal 1.0L Cannula 03/03 0400 93 Nasal 1.0L Cannula 03/03 0000 93 Nasal 1.0L Cannula 03/03 0000 98.4 76 20 148/78 93 Nasal 1.0L Cannula 03/02 Nasal 1.0L Cannula Intake & Output 03/03 1600 03/03 0800 03/03 0000 03/02 1600 03/02 0800 03/02 0000 Intake Total 7872 624 1478 694 759 673 Output Total 445 480 880 346 831 6704 Balance 951 496 152 54 -1 -328 Intake, IV 6149 444 3424 694 759 673 Intake, Oral 240 0 0 0 Number 1 1 Bowel Movements Output, 200 200 280 300 630 850 Drainage Output, 100 400 150 Gastric Drainage Output, Stool 20 40 0 1 Output, Urine 225 180 200 150 130 150 Physical Exam General Appearance: alert, awake, comfortable Head: atraumatic Ears, Nose, Throat: normal ENT inspection Respiratory: no respiratory distress, quiet respiration Gastrointestinal: soft, non-tender Rectal: deferred Neurologic/Psych: awake, alert Cranial Nerves: normal hearing, normal speech Skin: intact, normal color Reproductive: Normal female genitalia Other Physical Findings: Bedside procedure performed- cystoscopy findings- left posterior bladder wall fistula about the size of a dime with abdominal drain clearly visible. No other pathology noted. Last 24 Hours of Labs: Laboratory Tests 03/03 03/03 03/02 0930 0500 2120 Chemistry Sodium (137 - 145 mmol/L) 146 H Potassium (3.5 - 5.1 mmol/L) 3.3 L Chloride (98 - 107 mmol/L) 111 H Carbon Dioxide (22 - 30 mmol/L) 27 Anion Gap (5 - 16) 8 BUN (7 - 17 mg/dL) 22 H Creatinine (0.5 - 1.0 mg/dL) 0.9 Estimated GFR (>60 ml/min) > 60 Glucose (65 - 99 mg/dL) 132 H Calcium (8.4 - 10.2 mg/dL) 7.1 L Phosphorus (2.5 - 4.5 mg/dL) 2.7 Magnesium (1.6 - 2.3 mg/dL) 1.9 Total Bilirubin (0.2 - 1.3 mg/dL) 1.8 H AST (14 - 36 U/L) 32 ALT (9 - 52 U/L) 55 H Albumin (3.5 - 5.0 g/dL) 2.0 L Coagulation APTT (25 - 37 SEC) 67 H 70 H Hematology CBC w Diff NO MAN DIFF REQ WBC (4.8 - 10.8 /CUMM) 21.0 H RBC (4.20 - 5.40 /CUMM) 3.15 L Hgb (12.0 - 16.0 G/DL) 8.8 L Hct (37 - 47 %) 26.8 L MCV (81.0 - 99.0 FL) 85.1 MCH (27.0 - 31.0 PG) 27.9 MCHC (33.0 - 37.0 G/DL) 32.8 L RDW (11.5 - 14.5 %) 16.6 H Plt Count (130 - 400 /CUMM) 172 MPV (7.4 - 10.4 FL) 9.6 Gran % (42.2 - 75.2 %) 93.9 H Lymphocytes % (20.5 - 51.1 %) 3.3 L Monocytes % (1.7 - 9.3 %) 2.3 Eosinophils % (0 - 5 %) 0.5 Basophils % (0.0 - 2.0 %) 0 Absolute Granulocytes (1.4 - 6.5 /CUMM) 19.7 H Absolute Lymphocytes (1.2 - 3.4 /CUMM) 0.7 L Absolute Monocytes (0.10 - 0.60 /CUMM) 0.5 Absolute Eosinophils (0.0 - 0.7 /CUMM) 0.1 Absolute Basophils (0.0 - 0.2 /CUMM) 0 Assessment/Plan Assessment/Plan This is a 71yo female with a colovesical fistula that was resected and diverted with Allen's that subsequently developed increased abd drain output and decreased urine output. Cystoscopy confrims persistent fistula at left posterior bladder wall. Recommend keeping abd drain off suction as it is maintaining the fistula open. Also recommend pulling the drain a bit to move it from its present location next to the fistula tract. Continue the 20fr iglesias to drain bladder better. Will need indwelling iglesias for at least ten days and likely longer. Can recheck with cystoscopy but not until drainage changes consistently. Consult Acknowledgment - Thank you for your consult request.
--- NOTE | 2017-03-03 20:45 | Event Note ---
Event Note Event Note: DW Drs. Jacobs and Britton. Decision to pull back MARYELLEN drain approx 4 cm and resuture in place. MARYELLEN bulb to be off suction, except for 1 hr per day to self suction ( discussed w BLASTING MACHINE OPERATOR, best time = 10-11am). iglesias to stay in at least 10 days or as otherwise instructed by urology. Under sterile technique, old suture cut, MARYELLEN drawn back approx 4cm, 1cc lidocaine instilled, resutured in place, dressed. Pt tolerated well.
[2017-03-03 23:00] VITALS: BP 155/72
[2017-03-03 23:05] LABS: PTT 69 SEC (25-37)
[2017-03-04 05:51] LABS: ABSOLUTE BASOPHIL COUNT 0 /CUMM (0.0-0.2); ABSOLUTE EOSINOPHIL COUNT 0.1 /CUMM (0.0-0.7); ABSOLUTE GRANULOCYTE CT 17.7 /CUMM (1.4-6.5); ABSOLUTE LYMPH COUNT 0.9 /CUMM (1.2-3.4); ABSOLUTE MONOCYTE COUNT 0.9 /CUMM (0.10-0.60); BASOPHIL % 0 % (0.0-2.0); EOSINOPHIL % 0.6 % (0-5); HEMATOCRIT 28.4 % (37-47); MEAN CORPUSCULAR HGB 27.9 PG (27.0-31.0); MEAN CORPUSCULAR HGB CONC 32.7 G/DL (33.0-37.0); MEAN CORPUSCULAR VOLUME 85.3 FL (81.0-99.0); MEAN PLATELET VOLUME 10.1 FL (7.4-10.4); PLATELET COUNT 192 /CUMM (130-400); RBC DISTRIBUTION WIDTH 17.5 % (11.5-14.5); RED BLOOD CELL CT 3.33 /CUMM (4.20-5.40); WHITE BLOOD CELL COUNT 19.6 /CUMM (4.8-10.8)
--- NOTE | 2017-03-04 05:53 | PN- General Surgery ---
See Addendum Subjective Subjective: feeling better, william clear liquids last night. no n/v/cp/sob/f/c. ostomy with stool. Objective Vital Signs and I&Os Vital Signs Date Time Temp Pulse Resp B/P B/P Pulse O2 O2 Flow FiO2 Mean Ox Delivery Rate 03/04 0400 96 Nasal 2.0L Cannula 03/04 0000 97 Nasal 2.0L Cannula 03/03 2300 98.1 75 20 155/72 97 Nasal 2.0L Cannula 03/03 2108 94 Nasal 2.0L Cannula 03/03 1755 Nasal 1.0L Cannula 03/03 1600 94 Nasal 1.0L Cannula 03/03 1600 98.6 74 24 142/80 94 Nasal 1.0L Cannula 03/03 1200 94 Nasal 1.0L Cannula 03/03 1200 98.5 75 20 150/64 94 Nasal 1.0L Cannula 03/03 0800 Nasal 1.0L Cannula Intake & Output 03/04 0800 03/04 0000 03/03 1600 03/03 0800 03/03 0000 03/02 1600 Intake Total 1588 5376 009 8711 694 Output Total 330 445 480 880 640 Balance 1258 951 496 152 54 Intake, IV 1108 7394 585 7189 694 Intake, Oral 480 240 0 Number 1 1 Bowel Movements Output, 200 200 280 300 Drainage Output, 100 400 150 Gastric Drainage Output, Stool 20 40 Output, Urine 330 225 180 200 150 Physical Exam: Gen-NAD Card -s1s2 pulm- coarse bs throughout Abd- soft, mildly ttp, incision cdi w mt, no erythema, KATE straw colored Ext -calves nt bl, alps on ostomy: 200 over night, soft brown KATE: 50 overnight, clear yelloe iglesias: 300 overnight, clear yelloe Current Medications: Current Medications Sig/Jacobo Start time Last Medication Dose Route Stop Time Status Admin Acetaminophen 1,000 MG Q12P PRN 02/24 0845 AC 02/28 N/A 1 UNIT IV 1955 Ampicillin Sodium/ 3,000 MG Q6 02/26 1200 AC 03/03 Sulbactam Sodium IV 2350 Sodium Chloride 100 ML Dextrose/Water 1,000 ML Q13H 03/01 1315 DC 03/03 IV 0543 Fluconazole 400 MG Q24 03/03 1000 AC 03/03 Sodium Chloride 200 ML IV 1029 Heparin Sodium 25,000 UNIT Q24H 03/02 1130 AC 03/03 (Porcine) IV 1034 Sodium Chloride 500 ML Magnesium Sulfate 1 GM Q2H 03/03 0700 DC 03/03 Dextrose/Water 100 ML IV 03/03 1059 0924 Pantoprazole Sodium 40 MG DAILY 02/26 2038 AC 03/03 IV 0817 Potassium Chloride 20 MEQ Q10H 03/03 1045 AC 03/04 Dextrose/Water 1,000 ML IV 0059 Potassium Chloride 20 MEQ Q1H 03/03 1000 DC 03/03 IV 03/03 1001 1300 Potassium Chloride 20 MEQ Q1H 03/03 0630 DC 03/03 IV 03/03 0731 1121 Results Last 48 Hours of Labs: Laboratory Tests 03/04 03/03 03/03 03/03 0430 2210 0930 0500 Chemistry Sodium (137 - 145 mmol/L) Pending 146 H Potassium (3.5 - 5.1 mmol/L) Pending 3.3 L Chloride (98 - 107 mmol/L) Pending 111 H Carbon Dioxide (22 - 30 mmol/L) Pending 27 Anion Gap (5 - 16) Pending 8 BUN (7 - 17 mg/dL) Pending 22 H Creatinine (0.5 - 1.0 mg/dL) Pending 0.9 Estimated GFR (>60 ml/min) > 60 Glucose (65 - 99 mg/dL) Pending 132 H Calcium (8.4 - 10.2 mg/dL) Pending 7.1 L Phosphorus (2.5 - 4.5 mg/dL) Pending 2.7 Magnesium (1.6 - 2.3 mg/dL) Pending 1.9 Total Bilirubin (0.2 - 1.3 mg/dL) Pending 1.8 H AST (14 - 36 U/L) Pending 32 ALT (9 - 52 U/L) Pending 55 H Albumin (3.5 - 5.0 g/dL) Pending 2.0 L Coagulation APTT (25 - 37 SEC) 69 H 67 H Hematology CBC w Diff Pending NO MAN DIFF REQ WBC (4.8 - 10.8 /CUMM) Pending 21.0 H RBC (4.20 - 5.40 /CUMM) Pending 3.15 L Hgb (12.0 - 16.0 G/DL) Pending 8.8 L Hct (37 - 47 %) Pending 26.8 L MCV (81.0 - 99.0 FL) Pending 85.1 MCH (27.0 - 31.0 PG) Pending 27.9 MCHC (33.0 - 37.0 G/DL) Pending 32.8 L RDW (11.5 - 14.5 %) Pending 16.6 H Plt Count (130 - 400 /CUMM) Pending 172 MPV (7.4 - 10.4 FL) Pending 9.6 Gran % (42.2 - 75.2 %) 93.9 H Lymphocytes % (20.5 - 51.1 %) 3.3 L Monocytes % (1.7 - 9.3 %) 2.3 Eosinophils % (0 - 5 %) 0.5 Basophils % (0.0 - 2.0 %) 0 Absolute Granulocytes (1.4 - 6.5 /CUMM) 19.7 H Absolute Lymphocytes (1.2 - 3.4 /CUMM) 0.7 L Absolute Monocytes (0.10 - 0.60 /CUMM) 0.5 Absolute Eosinophils (0.0 - 0.7 /CUMM) 0.1 Absolute Basophils (0.0 - 0.2 /CUMM) 0 03/020 UNK Coagulation APTT (25 - 37 SEC) 70 H Miscellaneous Ref Lab Test Result Pending Ref Lab Test Result Pending Assessment/Plan Assessment/Plan 71F POD6 sp Rodri's 2/2 perforated colitis with colovesical fistula with intraperitoneal bladder leak, POD1 sp bedside cysto, with persistent bladder drainage of urine via kate, with return of bowel fxn, tolerating clears, on hep gtt for rle dvt, stable. P- diet- aat labs pdg Keep iglesias x10 days (or longer per Urology) keep kate off suction (except self suction x1hr/day). KATE adjusted last evening, resutured in place Cont all other medical managment per primary team ?need for icu level of care Will d/w attending Core Measures Venous Thromboembolism VTE Risk Factors Age>40 No Mechanical VTE Prophylaxis d/t N/A MechProphylax Ordered No VTE Pharm Prophylaxis d/t NA PharmProphylax ordered
[2017-03-04 07:02] LABS: GRANULOCYTE % 90.1 % (42.2-75.2)
--- NOTE | 2017-03-04 09:57 | PN- Pulmonary ---
Subjective HPI/Critical Care Issues: Patient is comfortable now on room air without shortness of breath Objective Current Medications: Current Medications Sig/Jacobo Start time Last Medication Dose Route Stop Time Status Admin Acetaminophen 1,000 MG Q12P PRN 02/24 0845 02/28 N/A 1 UNIT IV 1955 Ampicillin Sodium/ 3,000 MG Q6 02/26 1200 AC 03/04 Sulbactam Sodium IV 0557 Sodium Chloride 100 ML Dextrose/Water 1,000 ML Q13H 03/01 1315 DC 03/03 IV 0543 Fluconazole 400 MG Q24 03/03 1000 AC 03/04 Sodium Chloride 200 ML IV 0809 Heparin Sodium 25,000 UNIT Q24H 03/02 1130 03/03 (Porcine) IV 1034 Sodium Chloride 500 ML Magnesium Sulfate 1 GM Q2H 03/03 0700 DC 03/03 Dextrose/Water 100 ML IV 03/03 1059 0924 Pantoprazole Sodium 40 MG DAILY 02/26 2039 AC 03/04 IV 0809 Potassium Chloride 20 MEQ Q10H 03/03 1045 03/04 Dextrose/Water 1,000 ML IV 0059 Potassium Chloride 20 MEQ Q1H 03/03 1000 DC 03/03 IV 03/03 1001 1300 Vital Signs & I&O Last 24 Hrs of Vitals and I&O: Vital Signs Date Time Temp Pulse Resp B/P B/P Pulse O2 O2 Flow FiO2 Mean Ox Delivery Rate 03/04 0400 96 Nasal 2.0L Cannula 03/04 0000 97 Nasal 2.0L Cannula 03/03 2300 98.1 75 20 155/72 97 Nasal 2.0L Cannula 03/03 2108 94 Nasal 2.0L Cannula 03/03 1755 Nasal 1.0L Cannula 03/03 1600 94 Nasal 1.0L Cannula 03/03 1600 98.6 74 24 142/80 94 Nasal 1.0L Cannula 03/03 1200 94 Nasal 1.0L Cannula 03/03 1200 98.5 75 20 150/64 94 Nasal 1.0L Cannula Intake & Output 03/04 1600 03/04 0800 03/04 0000 Intake Total 1508 1588 Output Total 545 330 Balance 963 1258 Intake, IV 1208 1108 Intake, Oral 300 480 Output, 50 Drainage Output, Stool 200 Output, Urine 295 330 Patient is comfortable off oxygen exam for chest shows somewhat diminished breath sounds at the bases there are no wheezes or rhonchi cardiac exam shows regular and S2 without murmurs Impression/Plan Impression/Plan Impression/Plan: D1-year-old status post sepsis mechanical ventilation improved overall and can be transferred out of the ICU. Recommendations: DC right internal jugular central line prior to transfer if she has adequate peripheral access. Contact Dr. Echevarria to assume care. No further pulmonary suggestions
[2017-03-04 11:24] LABS: PTT 47 SEC (25-37)
--- NOTE | 2017-03-04 11:31 | PN- Infect Dx ---
Subjective Subjective: No fever. iglesias patent; urine appears concentrated w/sediment present. Brendan N/v. Review of Systems Comments: 12 points reviewed as noted, otherwise negative Objective Last 24 Hrs of Vital Signs/I&O Vital Signs Date Time Temp Pulse Resp B/P B/P Pulse O2 O2 Flow FiO2 Mean Ox Delivery Rate 03/04 0400 96 Nasal 2.0L Cannula 03/04 0000 97 Nasal 2.0L Cannula 03/03 2300 98.1 75 20 155/72 97 Nasal 2.0L Cannula 03/03 2108 94 Nasal 2.0L Cannula 03/03 1755 Nasal 1.0L Cannula 03/03 1600 94 Nasal 1.0L Cannula 03/03 1600 98.6 74 24 142/80 94 Nasal 1.0L Cannula 03/03 1200 94 Nasal 1.0L Cannula 03/03 1200 98.5 75 20 150/64 94 Nasal 1.0L Cannula Intake & Output 03/04 1600 03/04 0800 03/04 0000 Intake Total 1508 1588 Output Total 545 330 Balance 963 1258 Intake, IV 1208 1108 Intake, Oral 300 480 Output, 50 Drainage Output, Stool 200 Output, Urine 295 330 Physical Exam Other Physical Findings: She appears comfortable in no acute distress Neck right IJ triple-lumen catheter with no inflammation at the site Lungs decreased breath sounds at both bases Heart regular rhythm with no murmur Abdomen is soft, nontender with positive bowel sounds; colostomy with stool in the bag; incision clean, with no erythema or drainage; MARYELLEN drain with straw- colored fluid Extremities 1+ edema both lower extremities Iglesias catheter remains in place Results Last 24 Hours of Lab Results: Laboratory Tests 03/04 03/04 03/03 1015 0430 2210 Chemistry Sodium (137 - 145 mmol/L) 139 Potassium (3.5 - 5.1 mmol/L) 3.8 Chloride (98 - 107 mmol/L) 105 Carbon Dioxide (22 - 30 mmol/L) 26 Anion Gap (5 - 16) 8 BUN (7 - 17 mg/dL) 16 Creatinine (0.5 - 1.0 mg/dL) 0.7 Estimated GFR (>60 ml/min) > 60 Glucose (65 - 99 mg/dL) 120 H Calcium (8.4 - 10.2 mg/dL) 7.0 L Phosphorus (2.5 - 4.5 mg/dL) 2.4 L Magnesium (1.6 - 2.3 mg/dL) 2.0 Total Bilirubin (0.2 - 1.3 mg/dL) 1.3 AST (14 - 36 U/L) 28 ALT (9 - 52 U/L) 43 Albumin (3.5 - 5.0 g/dL) 1.9 L Coagulation APTT (25 - 37 SEC) Pending 69 H Hematology CBC w Diff NO MAN DIFF REQ WBC (4.8 - 10.8 /CUMM) 19.6 H RBC (4.20 - 5.40 /CUMM) 3.33 L Hgb (12.0 - 16.0 G/DL) 9.3 L Hct (37 - 47 %) 28.4 L MCV (81.0 - 99.0 FL) 85.3 MCH (27.0 - 31.0 PG) 27.9 MCHC (33.0 - 37.0 G/DL) 32.7 L RDW (11.5 - 14.5 %) 17.5 H Plt Count (130 - 400 /CUMM) 192 MPV (7.4 - 10.4 FL) 10.1 Gran % (42.2 - 75.2 %) 90.1 H Lymphocytes % (20.5 - 51.1 %) 4.7 L Monocytes % (1.7 - 9.3 %) 4.6 Eosinophils % (0 - 5 %) 0.6 Basophils % (0.0 - 2.0 %) 0 Absolute Granulocytes (1.4 - 6.5 /CUMM) 17.7 H Absolute Lymphocytes (1.2 - 3.4 /CUMM) 0.9 L Absolute Monocytes (0.10 - 0.60 /CUMM) 0.9 H Absolute Eosinophils (0.0 - 0.7 /CUMM) 0.1 Absolute Basophils (0.0 - 0.2 /CUMM) 0 Last 24 Hours of Caleb Results: PEC #: [id number] BELINDA: 02/28/17 STATUS: COMP RECD: 02/28/[address]: Hal ROTH,[place] SOURCE: URINE ROUT ENTR: 02/28/[address]: Swathi ROTH, Alexei SPDESC: URINE FOLE ORDERED: URINE CULTURE Procedure Result > URINE CULTURE Final 03/02/17 Greater than 100,000 colonies per ml of: PROBABLE YEAST NOT OLIMPIA ALBICANS Note: Infectious Diseases Society of [place] Guidelines state that asymptomatic bacteriuria is not associated with any increase in morbidity or mortality in most patients and therefore treatment is usually not indicated unless patients are less than five years old, or about to undergo urological procedures. Recent Imaging Studies: CT A/P IMPRESSION: 1. Postsurgical changes in the abdomen from recent partial colectomy. Stranding throughout the mesentery may reflect postoperative edema. Small amount of low-density free fluid. No convincing evidence for significant intra-abdominal hematoma. 2. Mural prominence of some segments of small and large bowel, including the descending colon. This could be reactive inflammation in the setting of recent surgery or could be infectious in etiology. 3. Partial visualization of bilateral [id number] pleural effusions and adjacent atelectasis. 4. Faint residual bilateral nephrograms on this noncontrast exam, suggesting renal dysfunction. DICTATED BY: Balwinder Tee MD DATE/TIME DICTATED:02/28/17141 AIRCRAFT AIR CONDITIONING MECHANIC:BIANCA DATE/TIME TRANSCRIBED:02/28/17141 Assessment/Plan Impression: 71-year-old female with past medical history of chronic bilateral lower extremity edema admitted on 02/22/17. Afebrile; persistent leukocytosis, now 6 days status post sigmoid colectomy with 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 She remains on Unasyn and Fluconazole for polymicrobial sepsis, with Clostridium and Escherichia coli isolated from the blood cultures and with these organisms, as well as alpha strep, Bacteroides and yeast (non-albicans) isolated from the OR cultures. The yeast has been sent out for identification and sensitivities but, as she is improving, she can be continued on Fluconazole pending these results. Her urine culture has also grown yeast, likely secondary to the colovesical fistula, with yeast in her sputum representing oropharyngeal contamination. The concern regarding a bladder leak into the peritoneum is noted, and she was evaluated by Urology. She is now back on Heparin, status post a diagnosis of a right lower extremity DVT preop. Suggestion: 1. Plan to remove right IJ. 2. Await ID and sensitivities of her Olimpia species 3. Continue Unasyn and Fluconazole 4. Monitor CBC, BMP and LFT's.
--- NOTE | 2017-03-04 13:07 | PN- Resident CRCU ---
Nancy ROTH,[facility] 03/04/17 1234: Subjective HPI/CRCU Issues: She appears comfortable this am. She does complain of a nonproductive cough since after extubation. No chest pain, shortness of breath or palpitations. Her right MARYELLEN drain was adjusted as recommended by urology yesterday and withdrawn slightly to reduce the drainage from her leaking bladder. Objective Vital Signs & I&O Last 8 Hrs of Vitals and I&O: Intake & Output 03/04 1600 Intake Total Output Total Balance Patient 188 lb Weight Weight Bed scale Measurement Method Vital Signs Result Date Time Pulse Ox 97 03/04 0800 O2 Delivery Nasal Cannula 03/04 08 O2 Flow Rate 2.0L 03/04 0800 B/P 155/72 03/03 2300 Temp 98.1 03/03 2300 Pulse 75 03/03 2300 Resp 20 03/03 2300 FiO2 35 03/01 1000 Intake & Output 03/04 0000 03/03 1600 03/03 0800 Intake Total 1588 1396 976 Output Total 330 445 480 Balance 1258 951 496 Intake, IV 1108 1156 976 Intake, Oral 480 240 Number 1 Bowel Movements Output, 200 200 Drainage Output, 100 Gastric Drainage Output, Stool 20 Output, Urine 330 225 180 Exam General Appearance: well developed/nourished, no apparent distress, alert, comfortable Head: atraumatic, normal appearance Ears, Nose, Throat: normal pharynx, normal ENT inspection Neck: normal inspection, supple Respiratory: normal breath sounds, chest non-tender, no respiratory distress, lungs clear Cardiovascular: regular rate/rhythm, edema, normal peripheral pulses Gastrointestinal: normal bowel sounds, soft, Colostomy in situ with greenish brown stools, MARYELLEN drain in situ in right abdomen Extremities: normal inspection, pedal edema Cranial Nerves: normal hearing, normal speech, PERRL Skin: intact, normal color Skin Temp/Moisture Exam: Warm/Dry Sepsis Skin Exam (color): Normal for Ethnicity Weaning Parameters NIF: 17 Minute Volume: 5.81 Resp rate: 28 Vt: 483 Heart Rate: 85 Weaning Schedule Start Time: 0946 Minute Volume: 6.25 Resp Rate: 25 Vt: 408 Heart Rate: 85 End Time: 1140 Start Time: 1140 Heart Rate: 86 Current Medications: Current Medications Sig/Jacobo Start time Last Medication Dose Route Stop Time Status Admin Acetaminophen 1,000 MG Q12P PRN 02/24 0845 02/28 N/A 1 UNIT IV 1955 Ampicillin Sodium/ 3,000 MG Q6 02/26 1200 AC 03/04 Sulbactam Sodium IV 1211 Sodium Chloride 100 ML Fluconazole 400 MG Q24 03/03 1000 AC 03/04 Sodium Chloride 200 ML IV 0809 Heparin Sodium 3,400 UNIT ONE 03/04 1200 DC (Porcine) IV 03/04 1201 Heparin Sodium 25,000 UNIT Q24H 03/02 1130 AC 03/04 (Porcine) IV 1031 Sodium Chloride 500 ML Pantoprazole Sodium 40 MG DAILY 02/26 203 AC 03/04 IV 0809 Potassium Chloride 20 MEQ Q10H 03/03 1045 AC 03/04 Dextrose/Water 1,000 ML IV 0059 Impression/Plan Impression/Problem List Impression: Ms Murphy is a 71-year-old woman with PMHx of arthritis, chronic b/l lower extremity edema presented to [place] ED on 02/22 with complaints of burning during urination and increased frequency and urgency, along with extreme weakness anorexia, and a 10 pound weight loss. She was initially being managed for sepsis of urological origin and a right leg DVT. She subsequently developed diarrhea, abdominal pain, hypotension and tachypnea requiring ICU admission. Chest X-ray revealed air under the diaphragm and coupled with the findings of her earlier CT abdomen showing colonic thickening. She had emergent exploratory laparotomy with general surgery and intraoperatively she was found to have perforated diverticulitis and colovesical fistula. She underwent a sigmoid colectomy with end colostomy and takedown of a colovesical fistula along with left oophorectomy. Postoperatively she had acute respiratory failure requiring mechanical ventilation as well as hypotension requiring pressors. She has made significant recovery since then and is off pressors and extubated. Plan 1. 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 This has been adjusted and slightly withdrawn as recommended by urology after the cystoscopy * Continue IV Unasyn * monitor vitals closely. * Discontinue IV KCL in D5W since hypernatremia has resolved * Currently on clear liquid diet. Will discuss with surgery to advance diet today 2. Sepsis and hypotension * Her blood pressures have remained normal over the past 72 hours and she is off pressors * CBC today shows declining WBC and is 19.6 today * Her blood cultures grew pansensitive Escherichia coli * Infectious disease advisor consultant recommendations appreciated * Fluconazole was started on account of yeast suspected to be Olimpia albicans * Will remove right IJ catheter today * She is stable for transfer to [facility] 3. Metabolic acidosis-now resolved * Patient had lactic acidosis from sepsis * Improved 4. Hypernatremia * Sodium normalized today to 139 * Discontinue IV KCL in D5W since hypernatremia has resolved * Nephrology advisor consultant input appreciated. will follow recommendations 5. Right leg DVT * Continue IV heparin drip 6. Anemia * Likely GI bleed * She received a total of 4 units of PRBCs since admission with last transfusion 4 days ago * Her blood counts are stable this morning and Hemoglobin 9.3 and hematocrit 28.4 today Housekeepin. DVT prophylaxis: ALPS+ heparin drip Code status is full code Problem List: 1. Colovesical fistula 2. Sepsis 3. Colitis 4. Anemia Pain Ratin Tomorrow's Labs & Rationales: CBC and BEP for anemia and hypokalemia respectively Plan DVT/Prophylaxis: mechanical, pharmacological Chuck Owens MD 03/04/17 1354: Attending MD Review Statement Attending Sign Off Attending Cosign Statement: I have: examined this patient, reviewed [facility] EMR data, discussd w/resident/PA/ PRIMER BOXER, discussed mgmt plan w/wayne, agreed w/resident/PA/PRIMER BOXER. Other Findings: Ms. Murphy has no complaints today. She specifically denies fever, chills, chest pain, SOB, dysuria, and abdominal pain. She remains afebrile. Heart and respiratory rates are satisfactory. Blood pressure has remained stable off pressors. Her O2 sats are satisfactory on 2 L via nasal cannula. She is in no acute distress. Anterior pulmonary exam is benign as is her cardiac exam. Her abdomen is soft and nontender. Her WBC is decreasing and her H&H are stable. Electrolytes are normal. Her glucose is mildly elevated. Respiratory and urine cultures are as noted by Sera Wynn MD. She underwent a bedside cystoscopy with repositioning of her abdominal drainage tube successfully last night. At this point Ms. Murphy is stable for transfer to the medical floor. We will continue to follow her cultures. We are continuing her antibiotics and antifungals. We will wean her oxygen as allowed. We will continue her heparin for her DVT. for her DVT.
--- NOTE | 2017-03-04 15:29 | Transfer of Care Summary ---
Hospital Course Course Hospital Course: The patient is 71-year-old woman with past medical history of arthritis, chronic bilateral lower extremity edema presented to [facility] ED on 02/22 with complaints of burning during urination and increased frequency and urgency, along with extreme weakness anorexia, and a 10 pound weight loss. Of note, she had been seen in the [facility] ER 2 months prior to this admission with right- sided abdominal pain and bright red blood in the toilet. At that time, she was found to be afebrile with a white blood count of 14,000, UA with packed WBCs and a CT of the abdomen and pelvis revealing abnormal wall thickening of the distal left and proximal sigmoid colon, discharged on Ciprofloxacin for a presumed urinary tract infection, with no urine culture sent. At presentation in the ER she was found to have leukocytosis with WBC of 22.9, creatinine of 1.2 baseline 1.0, BNP 2730, and lactic acid 2.6. Her urinalysis was turbid and positive for nitrates and large leukoesterase with packed with WBCs and bacteria. She received 2L of IV normal saline and was started on IV Rocephin, flagyl and IV Tylenol. However she developed worsening abdominal pain and diarrhea since admission with C-diff negative. She had blood cultures growing E-coli and Clostridium species and her antibiotics were changed to IV unasyn after review by Infectious disease it security consultant. A CT scan on 02/24/17 showed colonic thickening without free intraabdominal air. She was also found to have a right leg DVT was started on IV heparin drip. An echocardiogram done showed normal EF with no sign of RV strain. However, on 02/26/17 she developed worsening tachypnea and respiratory distress with hypotension necessitating ICU transfer. Her blood pressure on arrival to the ICU was 70/ doppler but improved to 96/60 mmhg with 2 L bolus of normal saline. Her O2 saturation was 93% on room air and it was felt that her respiratory distress was due to tachypnea from acidosis and sepsis. Her ABG showed metabolic acidosis with PH of 7.28. A chest X-ray showed free air under the diaphragm. She had emergent exploratory laparotomy with general surgery and intraoperatively she was found to have perforated diverticulitis and colovesical fistula. She underwent a sigmoid colectomy with end colostomy and takedown of a colovesical fistula along with left oophorectomy. Postoperatively she had acute respiratory failure requiring mechanical ventilation as well as hypotension requiring pressors. She has made significant recovery since then and came off pressors and extubated. She had a one time episode of non-sustained ventricular tachycardia in the setting of hypokalemia which did not recur while in the ICU. Postoperatively she developed urine leakage from her intraabdominal MARYELLEN drain and had cystoscopy by urologist, Dr. Jarquin which showed that the MARYELLEN drain was adjacent to the open bladder region. As per urologist recommendations, the MARYELLEN drain was withdrawn slightly and the plan was to retain her iglesias catheter for at least 10 days until MARYELLEN drainage reduces as the bladder fistula heals. Her heparin drip for anticoagulation was restarted post operatively. She has been in positive fluid balance postoperatively and was receiving IV lasix intermittently for diuresis. Significant Procedures: 1. Sigmoid colectomy with end colostomy and takedown of colovesical fistula 2. Takedown splenic flexure 3. Left oophorectomy 4. Skin biopsy abdomen Assessment/Plan: Ms Murphy is a 71-year-old woman with PMHx of arthritis, chronic b/l lower extremity edema presented to [facility] ED on 02/22 with complaints of burning during urination and increased frequency and urgency, along with extreme weakness anorexia, and a 10 pound weight loss. She was initially being managed for sepsis of urological origin and a right leg DVT. She subsequently developed diarrhea, abdominal pain, hypotension and tachypnea requiring ICU admission. Chest X-ray revealed air under the diaphragm and coupled with the findings of her earlier CT abdomen showing colonic thickening. She had emergent exploratory laparotomy with general surgery and intraoperatively she was found to have perforated diverticulitis and colovesical fistula. She underwent a sigmoid colectomy with end colostomy and takedown of a colovesical fistula along with left oophorectomy. Postoperatively she had acute respiratory failure requiring mechanical ventilation as well as hypotension requiring pressors. She has made significant recovery since then and is off pressors and extubated. Plan 1. 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 This has been adjusted and slightly withdrawn as recommended by urology after the cystoscopy * Iglesias should remain in place for at least 10 days and discuss with urology for timing of iglesias removal * Continue IV Unasyn * monitor vitals closely. * Discontinue IV KCL in D5W since hypernatremia has resolved * Currently on clear liquid diet. Discuss with surgery to advance diet 2. Sepsis and hypotension * Her blood pressures have remained normal over the past 72 hours and she is off pressors * CBC today shows declining WBC and is 19.6 today * Her blood cultures grew pansensitive Escherichia coli * Infectious disease it security consultant recommendations appreciated * Fluconazole was started on account of yeast suspected to be Olimpia albicans * Will remove right IJ catheter today * She is stable for transfer to [facility] 3. Metabolic acidosis-now resolved * Patient had lactic acidosis from sepsis * Improved 4. Hypernatremia * Sodium normalized today to 139 * Discontinue IV KCL in D5W since hypernatremia has resolved * Nephrology it security consultant input appreciated. will follow recommendations 5. Right leg DVT * Continue IV heparin drip 6. Anemia * Likely GI bleed * She received a total of 4 units of PRBCs since admission with last transfusion 4 days ago * Her blood counts are stable this morning and Hemoglobin 9.3 and hematocrit 28.4 today Housekeepin. DVT prophylaxis: ALPS+ heparin drip Code status is full code
[2017-03-04 19:02] LABS: PTT 62 SEC (25-37)
[2017-03-04 22:54] VITALS: BP 162/77
[2017-03-05 07:38] VITALS: BP 161/81
[2017-03-05 07:57] LABS: ABSOLUTE BASOPHIL COUNT 0 /CUMM (0.0-0.2); ABSOLUTE EOSINOPHIL COUNT 0.1 /CUMM (0.0-0.7); ABSOLUTE GRANULOCYTE CT 16.6 /CUMM (1.4-6.5); ABSOLUTE LYMPH COUNT 0.8 /CUMM (1.2-3.4); ABSOLUTE MONOCYTE COUNT 0.8 /CUMM (0.10-0.60); BASOPHIL % 0.2 % (0.0-2.0); EOSINOPHIL % 0.4 % (0-5); HEMATOCRIT 27.6 % (37-47); MEAN CORPUSCULAR HGB 27.6 PG (27.0-31.0); MEAN CORPUSCULAR HGB CONC 32.5 G/DL (33.0-37.0); MEAN PLATELET VOLUME 10.3 FL (7.4-10.4); PLATELET COUNT 210 /CUMM (130-400); RBC DISTRIBUTION WIDTH 17.8 % (11.5-14.5); RED BLOOD CELL CT 3.25 /CUMM (4.20-5.40); WHITE BLOOD CELL COUNT 18.3 /CUMM (4.8-10.8)
[2017-03-05 08:16] LABS: PTT 47 SEC (25-37)
[2017-03-05 09:10] LABS: GRANULOCYTE % 90.8 % (42.2-75.2)
--- NOTE | 2017-03-05 11:45 | PN- Infect Dx ---
Subjective Subjective: No fever. Fatigued. Improved appetite. Review of Systems Comments: 12 points reviewed as noted, otherwise negative. Objective Last 24 Hrs of Vital Signs/I&O Vital Signs Date Time Temp Pulse Resp B/P B/P Pulse O2 O2 Flow FiO2 Mean Ox Delivery Rate 03/05 0800 Nasal 2.0L Cannula 03/05 0738 98.4 79 20 161/81 98 Nasal 2.0L Cannula 03/05 0017 99.2 03/05 0000 97 Nasal 2.0L Cannula 03/04 2254 99.5 88 18 162/77 97 Nasal 2.0L Cannula 03/04 1600 Nasal 2.0L Cannula Intake & Output 03/05 1600 03/05 0800 03/05 0000 Intake Total 740 780 Output Total 560 710 Balance 180 70 Intake, IV 500 300 Intake, Oral 240 480 Output, 10 10 Drainage Output, Stool 100 150 Output, Urine 450 550 Patient 188 lb Weight Physical Exam Other Physical Findings: She appears comfortable in no acute distress Neck No JVD, R IJ TLC in place site w/o erythema Lungs decreased breath sounds at both bases Heart regular rhythm with no murmur Abdomen is soft, nontender with positive bowel sounds; colostomy with stool in the bag; incision clean, with no erythema or drainage, drain in place (serous drainage) Extremities 1+ edema both lower extremities Pete catheter remains in place Results Last 24 Hours of Lab Results: Laboratory Tests 03/05 03/04 0635 1825 Chemistry Sodium (137 - 145 mmol/L) 136 L Potassium (3.5 - 5.1 mmol/L) 3.8 Chloride (98 - 107 mmol/L) 105 Carbon Dioxide (22 - 30 mmol/L) 26 Anion Gap (5 - 16) 5 BUN (7 - 17 mg/dL) 12 Creatinine (0.5 - 1.0 mg/dL) 0.6 Estimated GFR (>60 ml/min) > 60 BUN/Creatinine Ratio (7 - 25 %) 20.0 Coagulation APTT (25 - 37 SEC) 47 H 62 H Hematology CBC w Diff NO MAN DIFF REQ WBC (4.8 - 10.8 /CUMM) 18.3 H RBC (4.20 - 5.40 /CUMM) 3.25 L Hgb (12.0 - 16.0 G/DL) 9.0 L Hct (37 - 47 %) 27.6 L MCV (81.0 - 99.0 FL) 85.0 MCH (27.0 - 31.0 PG) 27.6 MCHC (33.0 - 37.0 G/DL) 32.5 L RDW (11.5 - 14.5 %) 17.8 H Plt Count (130 - 400 /CUMM) 210 MPV (7.4 - 10.4 FL) 10.3 Gran % (42.2 - 75.2 %) 90.8 H Lymphocytes % (20.5 - 51.1 %) 4.2 L Monocytes % (1.7 - 9.3 %) 4.4 Eosinophils % (0 - 5 %) 0.4 Basophils % (0.0 - 2.0 %) 0.2 Absolute Granulocytes (1.4 - 6.5 /CUMM) 16.6 H Absolute Lymphocytes (1.2 - 3.4 /CUMM) 0.8 L Absolute Monocytes (0.10 - 0.60 /CUMM) 0.8 H Absolute Eosinophils (0.0 - 0.7 /CUMM) 0.1 Absolute Basophils (0.0 - 0.2 /CUMM) 0 Last 24 Hours of Caleb Results: SPEC #: [id number] BELINDA: 02/28/17 STATUS: COMP RECD: 02/28/[address]: Hal ROTH,[place] SOURCE: URINE ROUT ENTR: 02/28/17 [facility] DR: Swathi ROTH, Alexei SPDESC: URINE FOLE ORDERED: URINE CULTURE Procedure Result > URINE CULTURE Final 03/02/17 Greater than 100,000 colonies per ml of: PROBABLE YEAST NOT OLIMPIA ALBICANS Note: Infectious Diseases Society of [place] Guidelines state that asymptomatic bacteriuria is not associated with any increase in morbidity or mortality in most patients and therefore treatment is usually not indicated unless patients are less than five years old, or about to undergo urological procedures. Recent Imaging Studies: CXR IMPRESSION: 1. Endotracheal tube tip 4.5 cm above the isha. 2. Enteric tube tip not included in the upper abdomen. 3. Right jugular central venous line tip in cavoatrial junction. 4. No significant change in pulmonary edema with small bilateral pleural effusions and associated bibasilar opacities, likely related to atelectasis. DICTATED BY: Myrna ROTH,Camryn Leonardo DATE/TIME DICTATED:03/01/17927 YARN REWINDER:BIANCA DATE/TIME TRANSCRIBED:03/01/17927 Assessment/Plan Impression: 71-year-old female with past medical history of chronic bilateral lower extremity edema admitted on 02/22/17. Low grade temp; persistent leukocytosis, now 7 days status post sigmoid colectomy with 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 She remains on Unasyn and Fluconazole for polymicrobial sepsis, with Clostridium and Escherichia coli isolated from the blood cultures and with these organisms, as well as alpha strep, Bacteroides and yeast (non-albicans) isolated from the OR cultures. The yeast has been sent out for identification and sensitivities but, as she is improving, she can be continued on Fluconazole pending these results. Her urine culture on 02/28 has also grown yeast, likely secondary to the colovesical fistula; yeast in her sputum representing oropharyngeal contamination. The concern regarding a bladder leak into the peritoneum is noted, and she was evaluated by Urology; Pete in place. She is now back on Heparin, status post a diagnosis of a right lower extremity DVT. Suggestion: 1. F/U ID and sensitivities of her Olimpia species 2. Continue Unasyn and Fluconazole 3. Monitor CBC, BMP and LFT's. 4. Aspiration precautions. D/C TLC.
--- NOTE | 2017-03-05 12:50 | PN- Cardiology ---
Subjective Subjective: Patient signs of a cough. No chest pain. No shortness of breath. She complains of significant edema of her lower extremities. No palpitations. No diaphoresis. Objective Vital Signs and I&Os Vital Signs Date Time Temp Pulse Resp B/P B/P Pulse O2 O2 Flow FiO2 Mean Ox Delivery Rate 03/05 0800 Nasal 2.0L Cannula 03/05 0738 98.4 79 20 161/81 98 Nasal 2.0L Cannula 03/05 0017 99.2 03/05 0000 97 Nasal 2.0L Cannula 03/04 2254 99.5 88 18 162/77 97 Nasal 2.0L Cannula 03/04 1600 Nasal 2.0L Cannula Intake & Output 03/05 1600 03/05 0800 03/05 0000 03/04 1600 03/04 0800 03/04 0000 Intake Total 618 358 7243 1508 1588 Output Total 560 710 725 545 330 Balance 180 70 329 322 7222 Intake, IV 500 478 750 8146 1108 Intake, Oral 240 480 500 300 480 Number 0 Bowel Movements Output, 10 10 0 50 Drainage Output, Stool 100 150 200 200 Output, Urine 450 550 525 295 330 Patient 188 lb 188 lb Weight Weight Bed scale Measurement Method Physical Exam: Well-developed, well-nourished elderly female in no acute distress with oxygen in place. Vital signs: See above. Neck: No JVD, no bruits. Lungs: Occasional rhonchi and decreased breath sounds at bases. Heart: S1, S2 with no murmur, gallop, or rub appreciated. Abdomen: Soft, nontender, positive bowel sounds, colostomy bag in place. Extremities: 1+ bilateral lower extremity edema. Current Medications: Current Medications Sig/Jacobo Start time Last Medication Dose Route Stop Time Status Admin Acetaminophen 1,000 MG Q12P PRN 02/24 0845 AC 02/28 N/A 1 UNIT IV 1955 Ampicillin Sodium/ 3,000 MG Q6 02/26 1200 DC 03/05 Sulbactam Sodium IV 0527 Sodium Chloride 100 ML Fluconazole 400 MG Q24 03/03 1000 AC 03/05 Sodium Chloride 200 ML IV 0921 Heparin Sodium 3,416 UNIT ONE ONE 03/05 0830 DC 03/05 (Porcine) IV 03/05 0831 0921 Heparin Sodium 25,000 UNIT Q24H 03/02 1130 AC 03/05 (Porcine) IV 0830 Sodium Chloride 500 ML Pantoprazole Sodium 40 MG DAILY 02/26 2038 AC 03/05 IV 0923 Phosphate 250 MG PC AND AT BEDTIME 03/04 1300 DC 03/05 PO 03/05 1000 0923 Potassium Chloride 40 MEQ ONCE ONE 03/04 1300 DC PO 03/04 1301 Potassium Chloride 20 MEQ Q10H 03/03 1045 DC 03/04 Dextrose/Water 1,000 ML IV 0059 Results Last 48 Hrs of Labs/Mics: Laboratory Tests 03/05/17 0635: Anion Gap 5, Estimated GFR > 60, BUN/Creatinine Ratio 20.0, APTT 47 H, CBC w Diff NO MAN DIFF REQ, RBC 3.25 L, MCV 85.0, MCH 27.6, MCHC 32.5 L, RDW 17.8 H , MPV 10.3, Gran % 90.8 H, Lymphocytes % 4.2 L, Monocytes % 4.4, Eosinophils % 0.4, Basophils % 0.2, Absolute Granulocytes 16.6 H, Absolute Lymphocytes 0.8 L , Absolute Monocytes 0.8 H, Absolute Eosinophils 0.1, Absolute Basophils 0 03/04/17 1825: APTT 62 H 03/04/17 1015: APTT 47 H 03/04/17 0430: Anion Gap 8, Estimated GFR > 60, Glucose 120 H, Calcium 7.0 L, Phosphorus 2.4 L, Magnesium 2.0, Total Bilirubin 1.3, AST 28, ALT 43, Albumin 1.9 L, CBC w Diff NO MAN DIFF REQ, RBC 3.33 L, MCV 85.3, MCH 27.9, MCHC 32.7 L, RDW 17.5 H , MPV 10.1, Gran % 90.1 H, Lymphocytes % 4.7 L, Monocytes % 4.6, Eosinophils % 0.6, Basophils % 0, Absolute Granulocytes 17.7 H, Absolute Lymphocytes 0.9 L, Absolute Monocytes 0.9 H, Absolute Eosinophils 0.1, Absolute Basophils 0 03/03/17 2210: APTT 69 H Assessment/Plan Assessment/Plan Assessment: 1. Perforated colon, status post surgery 2. Sepsis, improved 3. Ventricular ectopy, improved 4. Likely acute on chronic HFpEF, with pulmonary edema on chest x-ray, and significant bilateral lower extremity edema Plan: * Would start Lasix 20 mg IV daily. Monitor input and output * Check basic metabolic profile daily, and replete electrolytes as needed Continue telemetry? Yes
[2017-03-05 14:02] VITALS: BP 160/80
--- NOTE | 2017-03-05 15:31 | PN- Att Addend ---
Attending Addendum Attending Brief Note Ms. Murphy notes cough and leg swelling today. She specifically denies fever, chills, chest pain, SOB, dysuria, and abdominal pain. She remains afebrile. Heart and respiratory rates are satisfactory. Blood pressure has remained stable off pressors. Her O2 sats are satisfactory on 2 L via nasal cannula. She is in no acute distress. Anterior pulmonary exam is benign as is her cardiac exam. Her abdomen is soft and nontender. Her WBC is decreasing and her H&H are stable. Electrolytes are normal. Respiratory and urine cultures are as noted by Sera Wynn MD. We will continue to follow her cultures. We are continuing her antibiotics and antifungals. We will wean her oxygen as allowed. We will continue her heparin for her DVT. We defer to the surgical team for postoperative management.
[2017-03-05 15:52] LABS: PTT 81 SEC (25-37)
--- NOTE | 2017-03-05 18:22 | PN- General Surgery ---
Subjective Subjective: POD one week Out of ICU now, no complaints, no nausea no fevers, Objective Vital Signs and I&Os Vital Signs Date Time Temp Pulse Resp B/P B/P Pulse O2 O2 Flow FiO2 Mean Ox Delivery Rate 03/05 1600 97 Nasal 2.0L Cannula 03/05 1402 98.2 87 20 160/80 94 Nasal 2.0L Cannula 03/05 0800 Nasal 2.0L Cannula 03/05 0738 98.4 79 20 161/81 98 Nasal 2.0L Cannula 03/05 0017 99.2 03/05 0000 97 Nasal 2.0L Cannula 03/04 2254 99.5 88 18 162/77 97 Nasal 2.0L Cannula Intake & Output 03/05 1600 03/05 0800 03/05 0000 03/04 1600 03/04 0800 03/04 0000 Intake Total 2520.4 798 014 8366 1508 1588 Output Total 450 560 710 725 545 330 Balance 2070.4 180 70 289 896 3917 Intake, IV 540.4 500 572 526 6810 1108 Intake, Oral 1980 240 480 500 300 480 Number 0 0 Bowel Movements Output, 10 10 0 50 Drainage Output, Stool 100 150 200 200 Output, Urine 450 450 550 525 295 330 Patient 188 lb 188 lb Weight Weight Bed scale Measurement Method Physical Exam: Constitutional: no acute distress no pain Eyes: sclera anicteric ENMT: moist mucous membranes Cardiovascular: S1-S2 no murmurs no peripheral edema Respiratory: clear to auscultation with normal respiratory effort and no intercostal retractions GI: abdomen soft nontender nondistended ostomy liquid output and gas Extremities / lymphatics: free range of motion no peripheral edema Skin: no jaundice no rashes warm, nondiaphoretic Psychiatric: mood and affect are appropriate and alert and oriented to person place and time Current Medications: Current Medications Sig/Jacobo Start time Last Medication Dose Route Stop Time Status Admin Acetaminophen 1,000 MG Q12P PRN 02/24 0845 AC 02/28 N/A 1 UNIT IV 1955 Ampicillin Sodium/ 3,000 MG Q6 02/26 1200 DC 03/05 Sulbactam Sodium IV 0527 Sodium Chloride 100 ML Fluconazole 400 MG Q24 03/03 1000 AC 03/05 Sodium Chloride 200 ML IV 0921 Heparin Sodium 3,416 UNIT ONE ONE 03/05 0830 DC 03/05 (Porcine) IV 03/05 0831 0921 Heparin Sodium 25,000 UNIT Q24H 03/02 1130 AC 03/05 (Porcine) IV 0830 Sodium Chloride 500 ML Pantoprazole Sodium 40 MG DAILY 02/26 2038 AC 03/05 IV 0923 Phosphate 250 MG PC AND AT BEDTIME 03/04 1300 DC 03/05 PO 03/05 1000 0923 Results Last 48 Hours of Labs: Laboratory Tests 03/05 03/05 03/04 03/04 1500 0635 1825 1015 Chemistry Sodium (137 - 145 mmol/L) 136 L Potassium (3.5 - 5.1 mmol/L) 3.8 Chloride (98 - 107 mmol/L) 105 Carbon Dioxide (22 - 30 mmol/L) 26 Anion Gap (5 - 16) 5 BUN (7 - 17 mg/dL) 12 Creatinine (0.5 - 1.0 mg/dL) 0.6 Estimated GFR (>60 ml/min) > 60 BUN/Creatinine Ratio (7 - 25 %) 20.0 Coagulation APTT (25 - 37 SEC) 81 H 47 H 62 H 47 H Hematology CBC w Diff NO MAN DIFF REQ WBC (4.8 - 10.8 /CUMM) 18.3 H RBC (4.20 - 5.40 /CUMM) 3.25 L Hgb (12.0 - 16.0 G/DL) 9.0 L Hct (37 - 47 %) 27.6 L MCV (81.0 - 99.0 FL) 85.0 MCH (27.0 - 31.0 PG) 27.6 MCHC (33.0 - 37.0 G/DL) 32.5 L RDW (11.5 - 14.5 %) 17.8 H Plt Count (130 - 400 /CUMM) 210 MPV (7.4 - 10.4 FL) 10.3 Gran % (42.2 - 75.2 %) 90.8 H Lymphocytes % (20.5 - 51.1 %) 4.2 L Monocytes % (1.7 - 9.3 %) 4.4 Eosinophils % (0 - 5 %) 0.4 Basophils % (0.0 - 2.0 %) 0.2 Absolute Granulocytes (1.4 - 6.5 /CUMM) 16.6 H Absolute Lymphocytes (1.2 - 3.4 /CUMM) 0.8 L Absolute Monocytes (0.10 - 0.60 /CUMM) 0.8 H Absolute Eosinophils (0.0 - 0.7 /CUMM) 0.1 Absolute Basophils (0.0 - 0.2 /CUMM) 0 03/04 03/03 0430 2210 Chemistry Sodium (137 - 145 mmol/L) 139 Potassium (3.5 - 5.1 mmol/L) 3.8 Chloride (98 - 107 mmol/L) 105 Carbon Dioxide (22 - 30 mmol/L) 26 Anion Gap (5 - 16) 8 BUN (7 - 17 mg/dL) 16 Creatinine (0.5 - 1.0 mg/dL) 0.7 Estimated GFR (>60 ml/min) > 60 Glucose (65 - 99 mg/dL) 120 H Calcium (8.4 - 10.2 mg/dL) 7.0 L Phosphorus (2.5 - 4.5 mg/dL) 2.4 L Magnesium (1.6 - 2.3 mg/dL) 2.0 Total Bilirubin (0.2 - 1.3 mg/dL) 1.3 AST (14 - 36 U/L) 28 ALT (9 - 52 U/L) 43 Albumin (3.5 - 5.0 g/dL) 1.9 L Coagulation APTT (25 - 37 SEC) 69 H Hematology CBC w Diff NO MAN DIFF REQ WBC (4.8 - 10.8 /CUMM) 19.6 H RBC (4.20 - 5.40 /CUMM) 3.33 L Hgb (12.0 - 16.0 G/DL) 9.3 L Hct (37 - 47 %) 28.4 L MCV (81.0 - 99.0 FL) 85.3 MCH (27.0 - 31.0 PG) 27.9 MCHC (33.0 - 37.0 G/DL) 32.7 L RDW (11.5 - 14.5 %) 17.5 H Plt Count (130 - 400 /CUMM) 192 MPV (7.4 - 10.4 FL) 10.1 Gran % (42.2 - 75.2 %) 90.1 H Lymphocytes % (20.5 - 51.1 %) 4.7 L Monocytes % (1.7 - 9.3 %) 4.6 Eosinophils % (0 - 5 %) 0.6 Basophils % (0.0 - 2.0 %) 0 Absolute Granulocytes (1.4 - 6.5 /CUMM) 17.7 H Absolute Lymphocytes (1.2 - 3.4 /CUMM) 0.9 L Absolute Monocytes (0.10 - 0.60 /CUMM) 0.9 H Absolute Eosinophils (0.0 - 0.7 /CUMM) 0.1 Absolute Basophils (0.0 - 0.2 /CUMM) 0 Assessment/Plan Assessment/Plan Impression slight improvement try to advance diet MARYELLEN output is down Pete output is up a good trend continue antibiotics Core Measures Venous Thromboembolism VTE Risk Factors Age>40 No Mechanical VTE Prophylaxis d/t N/A MechProphylax Ordered No VTE Pharm Prophylaxis d/t NA PharmProphylax ordered
[2017-03-05 22:05] VITALS: BP 158/84
[2017-03-06 04:41] LABS: PTT 75 SEC (25-37)
[2017-03-06 05:48] VITALS: BP 158/72
--- NOTE | 2017-03-06 07:20 | PN- Housestaff ---
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 tach Status post extubation Subjective: She appears comfortable this am. No chest pain, shortness of breath or palpitations. Her right MARYELLEN drain was adjusted as recommended by urology and withdrawn slightly to reduce the drainage from her leaking bladder. No abd pain/n/vomiting vitals stable Review of Systems Constitutional: Denies: see HPI. Objective Last 24 Hrs of Vital Signs/I&O Vital Signs Date Time Temp Pulse Resp B/P B/P Pulse O2 O2 Flow FiO2 Mean Ox Delivery Rate 03/06 0907 88 144/68 03/06 0800 Nasal 1.0L Cannula 03/06 0548 97.6 78 20 158/72 95 Nasal 1.0L Cannula 03/06 0000 Nasal 1.0L Cannula 03/05 2205 97.7 102 20 158/84 94 Nasal 1.0L Cannula 03/05 1600 97 Nasal 2.0L Cannula 03/05 1402 98.2 87 20 160/80 94 Nasal 2.0L Cannula Intake & Output 03/06 1600 03/06 0800 03/06 0000 Intake Total 101.4 Output Total 1200 1225 Balance -1200 -1123.6 Intake, IV 101.4 Number 0 Bowel Movements Output, 0 Drainage Output, Stool 225 Output, Urine 1200 1000 Patient 87.997 kg Weight Physical Exam General Appearance: Alert, Oriented X3, Cooperative, No Acute Distress Other Physical Findings: Neck: normal inspection, supple, TLC Respiratory: normal breath sounds, chest non-tender, no respiratory distress, lungs clear Cardiovascular: regular rate/rhythm, edema, normal peripheral pulses Gastrointestinal: normal bowel sounds, soft, Colostomy in situ with greenish brown stools, MARYELLEN drain in situ in right abdomen Extremities: normal inspection, pedal edema Current Medications: Current Medications Sig/Jacobo Start time Last Medication Dose Route Stop Time Status Admin Acetaminophen 1,000 MG Q12P PRN 02/24 0845 AC 02/28 N/A 1 UNIT IV 1954 Ampicillin Sodium/ 3,000 MG Q6 03/06 1200 AC Sulbactam Sodium IV Sodium Chloride 100 ML Ampicillin Sodium/ 3,000 MG Q6 02/26 1200 DC 03/05 Sulbactam Sodium IV 0527 Sodium Chloride 100 ML Apixaban 10 MG BID 03/06 1009 AC PO 03/12 2200 Fluconazole 400 MG Q24 03/03 1000 AC 03/06 Sodium Chloride 200 ML IV 0906 Furosemide 40 MG .STK-MED ONE 03/05 2024 DC IV 03/05 2025 Furosemide 20 MG DAILY 03/05 2019 AC 03/06 IV 0906 Heparin Sodium 25,000 UNIT Q24H 03/02 1130 DC 03/05 (Porcine) IV 220 Sodium Chloride 500 ML Pantoprazole Sodium 40 MG DAILY 02/26 2038 AC 03/06 IV 0906 Last 24 Hrs of Lab/Caleb Results Last 24 Hrs of Labs/Mics: Laboratory Tests 03/06/17 0410: APTT 75 H 03/05/17 1500: APTT 81 H Assessment/Plan Assessment: Ms Murphy is a 71-year-old woman with PMHx of arthritis, chronic b/l lower extremity edema presented to [place] ED on 02/22 with complaints of burning during urination and increased frequency and urgency, along with extreme weakness anorexia, and a 10 pound weight loss. She was initially being managed for sepsis of urological origin and a right leg DVT. She subsequently developed diarrhea, abdominal pain, hypotension and tachypnea requiring ICU admission. Chest X-ray revealed air under the diaphragm and coupled with the findings of her earlier CT abdomen showing colonic thickening. She had emergent exploratory laparotomy with general surgery and intraoperatively she was found to have perforated diverticulitis and colovesical fistula. She underwent a sigmoid colectomy with end colostomy and takedown of a colovesical fistula along with left oophorectomy. Postoperatively she had acute respiratory failure requiring mechanical ventilation as well as hypotension requiring pressors. She has made significant recovery since then and is off pressors and extubated. 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 This has been adjusted and slightly withdrawn as recommended by urology after the cystoscopy. * she was on ceftriaxone and Flagyl for the first 4 days and then later switched to Unasyn on 02/26/2017 with blood cultures positive for Clostridium and Escherichia coli. OR cultures positive for alpha strep, Bacteroides and yeast ( non albicans) Patient was started on fluconazole 400 mg IV on 03/03/2017 pending results. * Continue IV Unasyn day 9 AND fluconozole day 4. * monitor vitals closely. * Currently on low fiber diet Sepsis and hypotension * Her blood pressures have remained normal over the past 72 hours and she is off pressors * CBC today shows declining WBC * Removed right IJ catheter today Metabolic acidosis-now resolved * Patient had lactic acidosis from sepsis * Improved Hypernatremia * Sodium normalized today to 136 * Nephrology pre sales technical consultant input appreciated. Right leg DVT Given her dilated lower extremity swelling , ultrasound lower extremities was done to rule out DVT. she was found to have nonocclusive thrombus in the right proximal femoral vein. Guaiac stool was positive. However she was started on IV heparin drip, with close monitoring of hemoglobin. CT angiogram of chest was done with no evidence of acute pulmonary embolism. She was found to have moderate bilateral pleural effusions. * IV heparin drip was discontinued and switched to eliqus. * She will receive eliqus 10 mg twice daily for 1 week and then 5 mg twice daily. * An echocardiogram done showed normal EF with no sign of RV strain. Anemia * Likely GI bleed * She received a total of 4 units of PRBCs since admission * Her blood counts are stable * Hemoglobin 9.3 and hematocrit 28.4 today UTI Patient presented with suprapubic discomfort, burning micturition, generalized weakness and was found to have elevated white count, bandemia, lactic acidosis, temperature 101.4, HR 130 plus UA picture consistent with UTI with positive esterases, nitrites, packed WBC, bacteria. She received IV ceftriaxone for 5 days. she was found to have urine culture positive for Escherichia coli, pansensitive. DVT prophylaxis: ALPS+ eliqus Code status is full code Problem List: 1. Colovesical fistula 2. Colitis 3. Lactic acid acidosis 4. Leukocytosis 5. Sepsis Pain Ratin Pain Location: abdomen Pain Goal: Remain pain free Pain Plan: teriinol Tomorrow's Labs & Rationales: cbc bep
--- NOTE | 2017-03-06 07:44 | PN- General Surgery ---
See Addendum Subjective Subjective: PT SITTING UP IN BED. NO COMPLAINTS. LOOKING FOWARD TO WORKING WITH PT TODAY, WANTS TO START WALKING. NO NAUSEA, NO CP/SOB. TOLERATING DIET Objective Vital Signs and I&Os Vital Signs Date Time Temp Pulse Resp B/P B/P Pulse O2 O2 Flow FiO2 Mean Ox Delivery Rate 03/06 0548 97.6 78 20 158/72 95 Nasal 1.0L Cannula 03/06 0000 Nasal 1.0L Cannula 03/05 2205 97.7 102 20 158/84 94 Nasal 1.0L Cannula 03/05 1600 97 Nasal 2.0L Cannula 03/05 1402 98.2 87 20 160/80 94 Nasal 2.0L Cannula 03/05 0800 Nasal 2.0L Cannula Intake & Output 03/06 0800 03/06 0000 03/05 1600 03/05 0800 03/05 0000 03/04 1600 Intake Total 101.4 2520.4 345 258 8001 Output Total 1200 1225 450 560 710 725 Balance -1200 -1123.6 2070.4 180 70 631 Intake, IV 101.4 540.4 500 300 856 Intake, Oral 1980 240 480 500 Number 0 0 0 Bowel Movements Output, 0 10 10 0 Drainage Output, Stool 225 100 150 200 Output, Urine 1200 1000 450 450 550 525 Patient 194 lb 188 lb 188 lb Weight Weight Bed scale Measurement Method Physical Exam: GEN- NAD RESP- CLEAR CARDIO-RRR ABD- ND, +BS, NONTENDER. STAPLE IN MIDLINE, NO SIGNS OF INFECTION. MARYELLEN IN PLACE WITH CLEAR YELLOW FLUID IN BULB, BULB NOT ON SUCTION. OSTOMA IS PINK AND VIABLE. GAS AND LIQUID PHILLIP IN BAG EXT- 2+ EDEMA Assessment/Plan Assessment/Plan 71YO F WITH COLOVESICLE FISTULA SP HARTMANS POD8 ANN TO STAY IN FOR 14 DAYS MARYELLEN TO STAY IN, ONLY TO BE ON SUCTION FOR 1HOUR PER DAY CONT UNASYN AND DIFLUCAN FULL LIQUID DIET WOUND CARE- OSTOMY TEACHING CONT TO WORK WITH PT CARDIOLOGY ON- REC LASIX 20MG DAILY ENCOURAGE IS DVT PROPHYLAXIS- HEPARIN AND ALPS Core Measures Venous Thromboembolism VTE Risk Factors Age>40 No Mechanical VTE Prophylaxis d/t N/A MechProphylax Ordered No VTE Pharm Prophylaxis d/t NA PharmProphylax ordered
[2017-03-06 09:07] VITALS: BP 144/68
--- NOTE | 2017-03-06 10:57 | PN- Att Addend ---
Attending Addendum Attending Brief Note Patient feeling and looking better out of the ICU signs are stable patient has no fever major changes on physical one of the drain tubes was adjusted, had her cystoscopy her Pete catheter to stay in for at least 2 more weeks and will check with surgery regarding the sutures see how long they have to be in place and after all this is down maybe check for short-term rehabilitation bed. Intake & Output 03/06 1600 03/06 0400 03/05 1600 03/05 0400 03/04 1600 03/04 0400 Intake Total 101.4 3260.4 780 2864 1588 Output Total 1200 1225 9474 037 5251 330 Balance -1200 -1123.6 2250.4 70 1594 1258 Intake, IV 101.4 1040.4 300 2064 1108 Intake, Oral 2220 480 800 480 Number 0 0 0 Bowel Movements Output, 0 10 10 50 Drainage Output, Stool 225 100 150 400 Output, Urine 1200 1000 900 550 820 330 Patient 194 lb 188 lb 188 lb Weight Weight Bed scale Measurement Method Current Medications Sig/Jacobo Start time Last Medication Dose Route Stop Time Status Admin Acetaminophen 1,000 MG Q12P PRN 02/24 0845 AC 02/28 N/A 1 UNIT IV 1955 Ampicillin Sodium/ 3,000 MG Q6 03/06 1200 AC Sulbactam Sodium IV Sodium Chloride 100 ML Ampicillin Sodium/ 3,000 MG Q6 02/26 1200 DC 03/05 Sulbactam Sodium IV 0527 Sodium Chloride 100 ML Apixaban 10 MG BID 03/06 1009 AC PO 03/12 2201 Fluconazole 400 MG Q24 03/03 1000 AC 03/06 Sodium Chloride 200 ML IV 0906 Furosemide 40 MG .STK-MED ONE 03/05 2024 DC IV 03/05 2025 Furosemide 20 MG DAILY 03/05 2019 AC 03/06 IV 0906 Heparin Sodium 25,000 UNIT Q24H 03/02 1130 DC 03/05 (Porcine) IV 2208 Sodium Chloride 500 ML Pantoprazole Sodium 40 MG DAILY 02/26 2038 AC 03/06 IV 0906 Laboratory Tests 03/06/17 0410: APTT 75 H 03/05/17 1500: APTT 81 H 03/05/17 0635: Anion Gap 5, Estimated GFR > 60, BUN/Creatinine Ratio 20.0, APTT 47 H, CBC w Diff NO MAN DIFF REQ, RBC 3.25 L, MCV 85.0, MCH 27.6, MCHC 32.5 L, RDW 17.8 H , MPV 10.3, Gran % 90.8 H, Lymphocytes % 4.2 L, Monocytes % 4.4, Eosinophils % 0.4, Basophils % 0.2, Absolute Granulocytes 16.6 H, Absolute Lymphocytes 0.8 L , Absolute Monocytes 0.8 H, Absolute Eosinophils 0.1, Absolute Basophils 0 03/04/17 1825: APTT 62 H 03/04/17 1015: APTT 47 H 03/04/17 0430: Anion Gap 8, Estimated GFR > 60, Glucose 120 H, Calcium 7.0 L, Phosphorus 2.4 L, Magnesium 2.0, Total Bilirubin 1.3, AST 28, ALT 43, Albumin 1.9 L, CBC w Diff NO MAN DIFF REQ, RBC 3.33 L, MCV 85.3, MCH 27.9, MCHC 32.7 L, RDW 17.5 H , MPV 10.1, Gran % 90.1 H, Lymphocytes % 4.7 L, Monocytes % 4.6, Eosinophils % 0.6, Basophils % 0, Absolute Granulocytes 17.7 H, Absolute Lymphocytes 0.9 L, Absolute Monocytes 0.9 H, Absolute Eosinophils 0.1, Absolute Basophils 0 03/03/17 2210: APTT 69 H Vital Signs Date Time Temp Pulse Resp B/P B/P Pulse O2 O2 Flow FiO2 Mean Ox Delivery Rate 03/06 0907 88 144/68 03/06 0800 Nasal 1.0L Cannula 03/06 0548 97.6 78 20 158/72 95 Nasal 1.0L Cannula 03/06 0000 Nasal 1.0L Cannula 03/05 2205 97.7 102 20 158/84 94 Nasal 1.0L Cannula 03/05 1600 97 Nasal 2.0L Cannula 03/05 1402 98.2 87 20 160/80 94 Nasal 2.0L Cannula
--- NOTE | 2017-03-06 14:44 | PN- Infect Dx ---
Subjective Subjective: Afebrile. She overall feels well and is tolerating a regular diet. She does complain of weakness of her lower extremities. Objective Last 24 Hrs of Vital Signs/I&O Vital Signs Date Time Temp Pulse Resp B/P B/P Pulse O2 O2 Flow FiO2 Mean Ox Delivery Rate 03/06 0907 88 144/68 03/06 0800 Nasal 1.0L Cannula 03/06 0548 97.6 78 20 158/72 95 Nasal 1.0L Cannula 03/06 0000 Nasal 1.0L Cannula 03/05 2205 97.7 102 20 158/84 94 Nasal 1.0L Cannula 03/05 1600 97 Nasal 2.0L Cannula Intake & Output 03/06 1600 03/06 0800 03/06 0000 Intake Total 1220 101.4 Output Total 1600 1200 1225 Balance -380 -1200 -1123.6 Intake, IV 500 101.4 Intake, Oral 720 Number 0 Bowel Movements Output, 0 Drainage Output, Stool 225 Output, Urine 1600 1200 1000 Patient 194 lb Weight Physical Exam Other Physical Findings: She appears well in no acute distress Neck right IJ triple-lumen catheter with no inflammation at the site Lungs are clear Heart regular rhythm with no murmur Abdomen is soft, nontender with positive bowel sounds; colostomy with stool in the bag Extremities 2+ edema both lower extremities Neuro good lower extremity strength Pete catheter remains in place Results Last 24 Hours of Lab Results: Laboratory Tests 03/06 03/05 0410 1500 Coagulation APTT (25 - 37 SEC) 75 H 81 H Last 24 Hours of Caleb Results: No new cultures Assessment/Plan Impression: Doing well overall with temperatures remaining normal but with a persistent leukocytosis, though slightly decreased from several days ago, now 8 days status post sigmoid colectomy with 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 She remains on Unasyn and Fluconazole for polymicrobial sepsis, with Clostridium and Escherichia coli isolated from the blood cultures and with these organisms, as well as alpha strep, Bacteroides and yeast (non-albicans) isolated from the OR cultures. Am still awaiting the ID and sensitivity of the yeast. Urology comments regarding her bladder leak into the peritoneum noted, and her Pete catheter is to stay in place for at least another week. Suggestion: 1. Remove right IJ triple-lumen catheter 2. F/U ID and sensitivities of her Olimpia species 3. Continue Unasyn and Fluconazole pending above
--- NOTE | 2017-03-06 14:58 | Event Note ---
Event Note Event Note: RIGHT IJ TLC REMOVED AT BED SIDE.
[2017-03-06 15:13] VITALS: BP 160/80
--- NOTE | 2017-03-06 15:54 | Discharge Summary ---
Visit Information Visit Dates Admission Date: 02/22/17 Discharge Date: 03/14/15 Hospital Course Course Attending Physician: Swathi ROTH,Alexei Primary Care Physician: Swathi ROTH,[facility] Course: The patient is 71-year-old woman with past medical history of arthritis, chronic bilateral lower extremity edema presented [facility] with complaints of burning during urination and increased frequency and urgency, along with extreme weakness anorexia, and a 10 pound weight loss. Of note, [facility] prior to this admission with right- sided abdominal pain and bright red blood in the toilet. At that time, she was found to be afebrile with a white blood count of 14,000, UA with packed WBCs and a CT of the abdomen and pelvis revealing abnormal wall thickening of the distal left and proximal sigmoid colon, discharged on Ciprofloxacin for a presumed urinary tract infection, with no urine culture sent. At presentation in the ER she was found to have leukocytosis with WBC of 22.9, creatinine of 1.2 baseline 1.0, BNP 2730, and lactic acid 2.6. Her urinalysis was turbid and positive for nitrates and large leukoesterase with packed with WBCs and bacteria. She received 2L of IV normal saline and was started on IV Rocephin, flagyl and IV Tylenol. UTI Patient presented with suprapubic discomfort, burning micturition, generalized weakness and was found to have elevated white count, bandemia, lactic acidosis, temperature 101.4, HR 130 plus UA picture consistent with UTI with positive esterases, nitrites, packed WBC, bacteria. She received IV ceftriaxone for 5 days. she was found to have urine culture positive for Escherichia coli, pansensitive. Right femoral vein DVT Given her dilated lower extremity swelling , ultrasound lower extremities was done to rule out DVT. she was found to have nonocclusive thrombus in the right proximal femoral vein. Guaiac stool was positive. However she was started on IV heparin drip, with close monitoring of hemoglobin. CT angiogram of chest was done with no evidence of acute pulmonary embolism. She was found to have moderate bilateral pleural effusions. IV heparin drip was discontinued and switched to eliqus. She received 1 week of eliqus 10 mg twice daily and then was transiotioned to 5 mg twice daily. An echocardiogram done showed normal EF with no sign of RV strain. Perforated colon with peritonitis and colovesical fistula on 02/26/17 she developed worsening tachypnea and respiratory distress with hypotension necessitating ICU transfer. Her blood pressure on arrival to the ICU was 70/ doppler but improved to 96/60 mmhg with 2 L bolus of normal saline. Her O2 saturation was 93% on room air and it was felt that her respiratory distress was due to tachypnea from acidosis and sepsis. Her ABG showed metabolic acidosis with PH of 7.28. A chest X-ray showed free air under the diaphragm. She had emergent exploratory laparotomy with general surgery and intraoperatively she was found to have perforated diverticulitis and colovesical fistula. She underwent a sigmoid colectomy with end colostomy and takedown of a colovesical fistula along with left oophorectomy. Postoperatively she had acute respiratory failure requiring mechanical ventilation as well as hypotension requiring pressors. She has made significant recovery since then and came off pressors and extubated. Postoperatively she developed urine leakage from her intraabdominal MARYELLEN drain and had cystoscopy by urologist, Dr. Jarquin which showed that the MARYELLEN drain was adjacent to the open bladder region. As per urologist recommendations, the MARYELLEN drain was withdrawn slightly and the plan was to retain her iglesias catheter for at least 10 days until MARYELLEN drainage reduces as the bladder fistula heals. Her heparin drip for anticoagulation was restarted post operatively. She has been in positive fluid balance postoperatively and was receiving IV lasix intermittently for diuresis. Also her pathology report negative for malignancy. she was on ceftriaxone and Flagyl for the first 4 days and then later switched to Unasyn on 02/26/2017 with blood cultures positive for Clostridium and Escherichia coli. OR cultures positive for alpha strep, Bacteroides and yeast ( non albicans) Patient completed a 14 day abx and fungal (fluconazole) course . Upon discharge, pt leukocytosis had resolved and had been afebrile for more than 5 days. NSVT She had a one time episode of non-sustained ventricular tachycardia in the setting of hypokalemia which did not recur while in the ICU. Patient is being discharged with a short term supply of potassium. Please obtaibn BEP and magnesium levels within a week and periodically to assess for hypokalemia and hypomagnesemia. Hypernatremia Sodium normalized with fluids. Upon discharge patient was developing mild hyponatremia. Please trend Sodium levels within 1 week of discharge. SEN Acute kidney injury with creatinine 1.7 mostly from sepsis. Resolved with blood pressure improvement. Anemia Likely GI bleed.CT abdmomen did not reveal any intra-abdominal bleeding. She received a total of 4 units of PRBCs since admission. Her blood counts are stable on discharge date. Nonspecific lucencies in the spine largest measuring 9 mm in the S1. Patient will require further evaluation with can be done as an outpatient basis. unstageble pressure injury Patient was found to have 5x 9 cm area of poorly blanching erythema to buttocks, coccyx with the left buttocks 0.8x0.5 cm intact skin and right buttock 0.3 x 0.4 cm unstageable pressure injury. Cleansed buttocks wounds with normal saline followed by hydrocolloid dressing every 3 days Applied moisture barrier to periwound skin. Things to follow up on: Electrolytes deraingement : Na, K+, and Magnesium. Please trend accordingly Iglesias placement status post Colovesicular fistula. Per Urology, Keep iglesias till around 03/20- 03/22. Please contact Dr Jarquin office to schedule cystoscopy to assess colovesicular fistula closure (Referral providided). Continue dry daily dressing for midline incision Follow up with Dr Jacobs (surgery) Low reisdue diet. Allergies: Coded Allergies: shrimp (Severe, SEVERE HIVES 12/29/16) Disposition Summary Disposition Principal Diagnosis: Right femoral DVT UTI Perforated diverticulitis and colovesical fistula Status post sigmoid colectomy and colostomy Acute kidney injury Hypernatremia Acute on chronic anemia Leukocytosis Additional Diagnosis: Metabolic acidosis Discharge Disposition: SNF Discharge Instructions General Discharge Information Code Status: Full Code Patient's Diet: As tolerated Patient's Activity: As tolerated Follow-Up Instructions/Appts: Follow up with general surgeon in one week after discharge. Please follow-up with PCP in one week after discharge Please follow-up with urology in 1 week after discharge Please follow-up with cardiology in 1 week after discharge Please follow up with vascular surgeon in one week after discharge Medications at Discharge Discharge Medications: Start taking the following new medications: Furosemide (Furosemide) 20 MG TABLET 1 Tablet ORAL DAILY Qty = 30 No Refills Pantoprazole Sodium (Pantoprazole Sodium) 20 MG TABLET.DR 1 Tablet ORAL DAILY Qty = 30 No Refills Apixaban (Eliquis) 5 MG TABLET 5 Milligram ORAL TWICE DAILY Qty = 60 No Refills Potassium Chloride (Potassium Chloride) 20 MEQ TAB.ER.PRT 1 Tablet ORAL DAILY Qty = 7 No Refills Copies To: Britton ROTH,Fernanda; Swathi ROTH,Arielle Jacobs MD,Jacob Yarbrough
[2017-03-06 22:35] VITALS: BP 162/64
[2017-03-07 06:47] VITALS: BP 152/58
--- NOTE | 2017-03-07 08:41 | PN- Housestaff ---
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 tach Status post extubation Complaints: no complaints Subjective: She appears comfortable this am. No chest pain, shortness of breath or palpitations. Her right MARYELLEN drain was adjusted as recommended by urology and withdrawn slightly to reduce the drainage from her leaking bladder. TLC remove No abd pain/n/vomiting Tolerating diet Colostomy bag with brown stool. vitals stable Review of Systems Constitutional: Reports: see HPI. Objective Last 24 Hrs of Vital Signs/I&O Vital Signs Date Time Temp Pulse Resp B/P B/P Pulse O2 O2 Flow FiO2 Mean Ox Delivery Rate 03/07 0800 92 Nasal 1.0L Cannula 03/07 0647 97.9 97 18 152/58 92 03/07 0000 Nasal 1.0L Cannula 03/06 2235 97.5 93 16 162/64 93 Nasal 4.0L Cannula 03/06 1513 97.7 88 18 160/80 94 Nasal 1.0L Cannula Intake & Output 03/07 1600 03/07 0800 03/07 0000 Intake Total 620 250 Output Total 760 460 Balance -140 -210 Intake, IV 140 10 Intake, Oral 480 240 Number 0 0 Bowel Movements Output, 0 0 Drainage Output, Stool 10 10 Output, Urine 750 450 Patient 93.497 kg Weight Physical Exam General Appearance: Alert, Oriented X3, Cooperative, No Acute Distress Other Physical Findings: Neck: normal inspection, supple Respiratory: normal breath sounds, chest non-tender, no respiratory distress, lungs clear Cardiovascular: regular rate/rhythm,normal peripheral pulses Gastrointestinal: normal bowel sounds, soft, Colostomy in situ with greenish brown stools, MARYELLEN drain in situ in right abdomen Foleys catheter in place Current Medications: Current Medications Sig/Jacobo Start time Last Medication Dose Route Stop Time Status Admin Acetaminophen 1,000 MG Q12P PRN 02/24 0845 AC 02/28 N/A 1 UNIT IV 1954 Ampicillin Sodium/ 3,000 MG Q6 03/06 1200 DC Sulbactam Sodium IV Sodium Chloride 100 ML Ampicillin Sodium/ 3,000 MG Q6 03/06 1200 AC 03/07 Sulbactam Sodium IV 0518 Sodium Chloride 100 ML Apixaban 10 MG BID 03/06 1009 AC 03/07 PO 02/04 2201 0838 Fluconazole 400 MG Q24 03/03 1000 AC 03/07 Sodium Chloride 200 ML IV 0838 Furosemide 20 MG DAILY 03/05 2020 AC 03/07 IV 0838 Guaifenesin/Codeine 10 ML ONCE ONE 03/06 2214 DC 03/06 Phosphate PO 03/06 2215 2230 Pantoprazole Sodium 40 MG DAILY 02/26 2038 AC 03/07 IV 0838 Potassium Chloride 40 MEQ BID 03/07 1000 AC PO 03/07 2200 Last 24 Hrs of Lab/Caleb Results Last 24 Hrs of Labs/Mics: Laboratory Tests 03/07/17 0723: Anion Gap 7, Estimated GFR > 60, BUN/Creatinine Ratio 16.7, CBC w Diff Pending, WBC Pending, RBC Pending, Hgb Pending, Hct Pending, MCV Pending, MCH Pending, MCHC Pending, RDW Pending, Plt Count Pending, MPV Pending, Gran % Pending, Lymphocytes % Pending, Monocytes % Pending, Eosinophils % Pending, Basophils % Pending, Absolute Granulocytes Pending, Absolute Lymphocytes Pending, Absolute Monocytes Pending, Absolute Eosinophils Pending, Absolute Basophils Pending 03/06/17 1630: APTT Cancelled Assessment/Plan Assessment: Ms Murphy is a 71-year-old woman with PMHx of arthritis, chronic b/l lower extremity edema presented to [place] ED on 02/22 with complaints of burning during urination and increased frequency and urgency, along with extreme weakness anorexia, and a 10 pound weight loss. She was initially being managed for sepsis of urological origin and a right leg DVT. She subsequently developed diarrhea, abdominal pain, hypotension and tachypnea requiring ICU admission. Chest X-ray revealed air under the diaphragm and coupled with the findings of her earlier CT abdomen showing colonic thickening. She had emergent exploratory laparotomy with general surgery and intraoperatively she was found to have perforated diverticulitis and colovesical fistula. She underwent a sigmoid colectomy with end colostomy and takedown of a colovesical fistula along with left oophorectomy. Postoperatively she had acute respiratory failure requiring mechanical ventilation as well as hypotension requiring pressors. She has made significant recovery since then and is off pressors and extubated. ------ Perforated colon from diverticulitis and colovesical fistula status post Hartmans procedure She had emergent exploratory laparotomy on 02/26 with general surgery and intraoperatively she was found to have perforated diverticulitis and colovesical fistula. She underwent asigmoid colectomy with end colostomy and takedown of a colovesical fistula along with left oophorectomy. Postoperatively she had acute respiratory failure requiring mechanical ventilation as well as hypotension requiring pressors. She has made significant recovery since then and came off pressors and extubated. Postoperatively she developed urine leakage from her intraabdominal MARYELLEN drain and had cystoscopy by urologist, Dr. Jarquin which showed that the MARYELLEN drain was adjacent to the open bladder region. As per urologist recommendations, the MARYELLEN drain was withdrawn slightly and the plan was to retain her iglesias catheter for at least 10 days until MARYELLEN drainage reduces as the bladder fistula heals. * s/p surgery postop day8 * she was on ceftriaxone and Flagyl for the first 4 days and then later switched to Unasyn on 02/26/2017 with blood cultures positive for Clostridium and Escherichia coli. * OR cultures positive for alpha strep, Bacteroides and yeast ( non albicans). Patient was started on fluconazole 400 mg IV on 03/03/2017 pending results. * Continue IV Unasyn day 10 and fluconozole day 5. * monitor vitals closely. * Monitor for fever, WBC trend * Currently on low fiber diet * Follow-up surgery recommendations * Follow-up ID recommendations Sepsis and hypotension- resolved * Her blood pressures have remained normal over the past 72 hours and she is off pressors * Removed right IJ catheter Metabolic acidosis-now resolved * Patient had lactic acidosis from sepsis * Improved Hypernatremia- resolved * Sodium normalized today to 135 * Nephrology customer support consultant input appreciated. Right leg DVT Given her dilated lower extremity swelling , ultrasound lower extremities was done to rule out DVT. she was found to have nonocclusive thrombus in the right proximal femoral vein. Guaiac stool was positive. However she was started on IV heparin drip, with close monitoring of hemoglobin. CT angiogram of chest was done with no evidence of acute pulmonary embolism. She was found to have moderate bilateral pleural effusions. * IV heparin drip was discontinued and switched to eliqus. * She will receive eliqus 10 mg twice daily for 1 week and then 5 mg twice daily. * An echocardiogram done showed normal EF with no sign of RV strain. Bilateral lower extremity swelling/hfpef Patient has worsening bilateral lower extremity swelling up to her thighs. Echocardiogram was done which showed normal ejection fraction and stage I diastolic dysfunction. * Continue IV Lasix 20 mg daily. Anemia * Likely GI bleed * She received a total of 4 units of PRBCs since admission * Her blood counts are stable * Hemoglobin 9.3 and hematocrit 28.4 * Continue IV Protonix 40 daily SEN Acute kidney injury with creatinine 1.7 mostly from sepsis. Resolved with blood pressure improvement. UTI Patient presented with suprapubic discomfort, burning micturition, generalized weakness and was found to have elevated white count, bandemia, lactic acidosis, temperature 101.4, HR 130 plus UA picture consistent with UTI with positive esterases, nitrites, packed WBC, bacteria. She received IV ceftriaxone for 5 days. she was found to have urine culture positive for Escherichia coli, pansensitive. NSVT She had a one time episode of non-sustained ventricular tachycardia in the setting of hypokalemia while in the ICU. No Recurrent episodes. Nonspecific lucencies in the spine largest measuring 9 mm in the S1. Patient will require further evaluation with can be done as an outpatient basis. unstageble pressure injury Patient was found to have 5x 9 cm area of poorly blanching erythema to buttocks, coccyx with the left buttocks 0.8x0.5 cm intact skin and right buttock 0.3 x 0.4 cm unstageable pressure injury. * Cleanse buttocks wounds with normal saline followed by hydrocolloid dressing every 3 days * Apply moisture barrier to periwound skin. DVT prophylaxis: ALPS+ eliqus Code status is full code Problem List: 1. Sepsis 2. Leukocytosis 3. Colovesical fistula 4. Colitis Pain Ratin Pain Location: abd Pain Goal: Remain pain free Pain Plan: tylinol Tomorrow's Labs & Rationales: cbc bep
--- NOTE | 2017-03-07 08:58 | PN- General Surgery ---
Subjective Subjective: No overnight complaints. Diet was advanced yesterday, tolerated well. No c/o chest pain, sob, nausea and vomitting. Has iglesias. Has ostomy with stool. Working with PT. Eager to ambulate. Objective Vital Signs and I&Os Vital Signs Date Time Temp Pulse Resp B/P B/P Pulse O2 O2 Flow FiO2 Mean Ox Delivery Rate 03/07 0647 97.9 97 18 152/58 92 03/07 0000 Nasal 1.0L Cannula 03/06 2235 97.5 93 16 162/64 93 Nasal 4.0L Cannula 03/06 1513 97.7 88 18 160/80 94 Nasal 1.0L Cannula 03/06 0907 88 144/68 Intake & Output 03/07 1600 03/07 0800 03/07 0000 03/06 1600 03/06 0800 03/06 0000 Intake Total 159 551 6114 101.4 Output Total 931 552 2765 1200 1225 Balance -140 -210 -690 -1200 -1123.6 Intake, IV 140 10 500 101.4 Intake, Oral 480 240 720 Number 0 0 0 Bowel Movements Output, 0 0 10 0 Drainage Output, Stool 10 10 300 225 Output, Urine 063 555 9128 1200 1000 Patient 206 lb 194 lb Weight Physical Exam: General: Alert and oriented x3, no acute distress Cardiac: RRR, s1s2 Pulm: CTA bialterally ABD: Soft, non-tender, non-distended. Ostomy appliance intact. Stoma patent and viable. Stool in bag. No gerardo-incisional erythema noted. KATE off suction. Iglesias with clear yellow urine. Extremiteis; Moves all extremities, distal sensation intact. Skin warm and well perfused. DP pulses palpble. Known dvt RLE. Bilateral calve soft/non- tender presently. Assessment/Plan Assessment/Plan This is a 71 year old female s/p hartmans for colovesicular fistula. Has bowel function presently. Tolerating diet. -Continue lrd as tolerated -Continue kate to suction for one hour per day only, 10a-11a -Continue iglesias catheter until otherwise indicated by Dr. Jarquin -PO dvt tx -OOB with pt as tolerated Will discuss with Dr. Jacobs Core Measures Venous Thromboembolism VTE Risk Factors Age>40 No Mechanical VTE Prophylaxis d/t N/A MechProphylax Ordered No VTE Pharm Prophylaxis d/t NA PharmProphylax ordered
[2017-03-07 09:04] LABS: ABSOLUTE BASOPHIL COUNT 0 /CUMM (0.0-0.2); ABSOLUTE EOSINOPHIL COUNT 0 /CUMM (0.0-0.7); ABSOLUTE GRANULOCYTE CT 17.3 /CUMM (1.4-6.5); EOSINOPHIL % 0.1 % (0-5); HEMATOCRIT 25.6 % (37-47)
[2017-03-07 09:51] LABS: ABSOLUTE LYMPH COUNT 0.5 /CUMM (1.2-3.4); ABSOLUTE MONOCYTE COUNT 0.8 /CUMM (0.10-0.60); BASOPHIL % 0.1 % (0.0-2.0); MEAN CORPUSCULAR HGB CONC 32.9 G/DL (33.0-37.0); MEAN PLATELET VOLUME 9.5 FL (7.4-10.4); RBC DISTRIBUTION WIDTH 18.4 % (11.5-14.5); RED BLOOD CELL CT 3.01 /CUMM (4.20-5.40); WHITE BLOOD CELL COUNT 18.6 /CUMM (4.8-10.8)
[2017-03-07 09:56] LABS: PLATELET COUNT 331 /CUMM (130-400)
--- NOTE | 2017-03-07 10:12 | PN- Att Addend ---
Attending Addendum Attending Brief Note Patient feeling and looking better eating by mouth. Will afebrile the abdomen is soft the wounds look good drained will be taken out today by Dr. Jacobs. The central line was discontinued yesterday had a 40 still has to be in. Will get a PT evaluation. She will benefit from rehabilitation also continue antibiotic treatment as per infectious diseases recommendations Intake & Output 03/07 1600 03/07 0400 03/06 1600 03/06 0400 03/05 1600 03/05 0400 Intake Total 453 136 3753 101.4 3260.4 780 Output Total 422 662 6174 1225 1010 710 Balance -140 -210 -1890 -1123.6 2250.4 70 Intake, IV 140 10 500 101.4 1040.4 300 Intake, Oral 480 143 699 6254 480 Number 0 0 0 0 Bowel Movements Output, 0 0 10 0 10 10 Drainage Output, Stool 10 10 300 225 100 150 Output, Urine 850 970 6531 1000 900 550 Patient 206 lb 194 lb 188 lb Weight Current Medications Sig/Jacobo Start time Last Medication Dose Route Stop Time Status Admin Acetaminophen 1,000 MG Q12P PRN 02/24 0845 AC 02/28 N/A 1 UNIT IV 1955 Ampicillin Sodium/ 3,000 MG Q6 03/06 1200 DC Sulbactam Sodium IV Sodium Chloride 100 ML Ampicillin Sodium/ 3,000 MG Q6 03/06 1200 AC 03/07 Sulbactam Sodium IV 0518 Sodium Chloride 100 ML Apixaban 10 MG BID 03/06 1009 AC 03/07 PO 03/12 220 0838 Fluconazole 400 MG Q24 03/03 1000 AC 03/07 Sodium Chloride 200 ML IV 0838 Furosemide 20 MG DAILY 03/05 2020 AC 03/07 IV 0838 Guaifenesin/Codeine 10 ML ONCE ONE 03/06 2215 DC 03/06 Phosphate PO 03/06 2216 2230 Pantoprazole Sodium 40 MG DAILY 02/26 2038 AC 03/07 IV 0838 Potassium Chloride 40 MEQ BID 03/07 1000 AC PO 03/07 2200 Laboratory Tests 03/07/17 0723: Anion Gap 7, Estimated GFR > 60, BUN/Creatinine Ratio 16.7, CBC w Diff Pending, WBC Pending, RBC Pending, Hgb Pending, Hct Pending, MCV Pending, MCH Pending, MCHC Pending, RDW Pending, Plt Count Pending, MPV Pending, Gran % Pending, Lymphocytes % Pending, Monocytes % Pending, Eosinophils % Pending, Basophils % Pending, Absolute Granulocytes Pending, Absolute Lymphocytes Pending, Absolute Monocytes Pending, Absolute Eosinophils Pending, Absolute Basophils Pending 03/06/17 1630: APTT Cancelled 03/06/17 0600: Sodium Cancelled, Potassium Cancelled, Chloride Cancelled, Carbon Dioxide Cancelled, Anion Gap Cancelled, BUN Cancelled, Creatinine Cancelled, BUN/ Creatinine Ratio Cancelled, CBC w Diff Cancelled, WBC Cancelled, RBC Cancelled, Hgb Cancelled, Hct Cancelled, MCV Cancelled, MCH Cancelled, MCHC Cancelled, RDW Cancelled, Plt Count Cancelled, MPV Cancelled 03/06/17 0410: APTT 75 H 03/05/17 1500: APTT 81 H 03/05/17 0635: Anion Gap 5, Estimated GFR > 60, BUN/Creatinine Ratio 20.0, APTT 47 H, CBC w Diff NO MAN DIFF REQ, RBC 3.25 L, MCV 85.0, MCH 27.6, MCHC 32.5 L, RDW 17.8 H , MPV 10.3, Gran % 90.8 H, Lymphocytes % 4.2 L, Monocytes % 4.4, Eosinophils % 0.4, Basophils % 0.2, Absolute Granulocytes 16.6 H, Absolute Lymphocytes 0.8 L , Absolute Monocytes 0.8 H, Absolute Eosinophils 0.1, Absolute Basophils 0 03/04/17 1825: APTT 62 H 03/04/17 1015: APTT 47 H Vital Signs Date Time Temp Pulse Resp B/P B/P Pulse O2 O2 Flow FiO2 Mean Ox Delivery Rate 03/07 0800 92 Nasal 1.0L Cannula 03/07 0647 97.9 97 18 152/58 92 03/07 0000 Nasal 1.0L Cannula 03/06 2235 97.5 93 16 162/64 93 Nasal 4.0L Cannula 03/06 1513 97.7 88 18 160/80 94 Nasal 1.0L Cannula
--- NOTE | 2017-03-07 12:46 | PN- Infect Dx ---
Subjective Subjective: Afebrile. She feels well with no complaints. She is eating a regular diet. Objective Last 24 Hrs of Vital Signs/I&O Vital Signs Date Time Temp Pulse Resp B/P B/P Pulse O2 O2 Flow FiO2 Mean Ox Delivery Rate 03/07 0800 92 Nasal 1.0L Cannula 03/07 0647 97.9 97 18 152/58 92 03/07 0000 Nasal 1.0L Cannula 03/06 2235 97.5 93 16 162/64 93 Nasal 4.0L Cannula 03/06 1513 97.7 88 18 160/80 94 Nasal 1.0L Cannula Intake & Output 03/07 1600 03/07 0800 03/07 0000 Intake Total 620 250 Output Total 1000 760 460 Balance -1000 -140 -210 Intake, IV 140 10 Intake, Oral 480 240 Number 0 0 Bowel Movements Output, 0 0 Drainage Output, Stool 10 10 Output, Urine 1000 750 450 Patient 206 lb Weight Physical Exam Other Physical Findings: She appears comfortable in no acute distress Lungs decreased breath sounds at both bases Heart regular rhythm with no murmur Abdomen is soft, nontender positive bowel sounds; stool in the colostomy bag Extremities 2+ edema both lower extremities Pete catheter remains in place Results Last 24 Hours of Lab Results: Laboratory Tests 03/07 03/06 0723 1630 Chemistry Sodium (137 - 145 mmol/L) 135 L Potassium (3.5 - 5.1 mmol/L) 3.2 L Chloride (98 - 107 mmol/L) 102 Carbon Dioxide (22 - 30 mmol/L) 26 Anion Gap (5 - 16) 7 BUN (7 - 17 mg/dL) 10 Creatinine (0.5 - 1.0 mg/dL) 0.6 Estimated GFR (>60 ml/min) > 60 BUN/Creatinine Ratio (7 - 25 %) 16.7 Coagulation APTT Cancelled Hematology CBC w Diff NO MAN DIFF REQ WBC (4.8 - 10.8 /CUMM) 18.6 H RBC (4.20 - 5.40 /CUMM) 3.01 L Hgb (12.0 - 16.0 G/DL) 8.4 L Hct (37 - 47 %) 25.6 L MCV (81.0 - 99.0 FL) 85.0 MCH (27.0 - 31.0 PG) 28.0 MCHC (33.0 - 37.0 G/DL) 32.9 L RDW (11.5 - 14.5 %) 18.4 H Plt Count (130 - 400 /CUMM) 331 MPV (7.4 - 10.4 FL) 9.5 Gran % (42.2 - 75.2 %) 93.0 H Lymphocytes % (20.5 - 51.1 %) 2.6 L Monocytes % (1.7 - 9.3 %) 4.2 Eosinophils % (0 - 5 %) 0.1 Basophils % (0.0 - 2.0 %) 0.1 Absolute Granulocytes (1.4 - 6.5 /CUMM) 17.3 H Absolute Lymphocytes (1.2 - 3.4 /CUMM) 0.5 L Absolute Monocytes (0.10 - 0.60 /CUMM) 0.8 H Absolute Eosinophils (0.0 - 0.7 /CUMM) 0 Absolute Basophils (0.0 - 0.2 /CUMM) 0 Last 24 Hours of Caleb Results: No new cultures Assessment/Plan Impression: Overall improved, with temperatures remaining normal but with a persistent leukocytosis, on Unasyn and Fluconazole, now 9 days status post sigmoid colectomy with end colostomy and takedown of a colovesical fistula (with left oophorectomy) for a perforated diverticulitis with a colovesical fistula, with multiple organisms, including Escherichia coli, Clostridium and yeast not Olimpia albicans (with the ID and sensitivities pending), isolated from the blood and OR cultures. She has progressed well with her diet and has no abdominal tenderness; however the leukocytosis raises concern for a possible residual intra-abdominal infection. Suggestion: 1. Repeat CT of the chest, abdomen and pelvis 2. Await ID and sensitivities of her Olimpia species 3. Change Fluconazole to 400 mg po every 24 hours 4. Continue Unasyn
[2017-03-07 14:01] VITALS: BP 160/80
--- NOTE | 2017-03-07 15:23 | CT SCAN REPORT ---
EXAMINATION: CT CHEST ABDOMEN AND PELVIS WITHOUT CONTRAST CLINICAL INFORMATION: Perforated diverticulitis, evaluate for residual infection. Residual leukocytosis. COMPARISON: CT scan of the abdomen and pelvis dated 02/28/2017 TECHNIQUE: Multidetector volumetric imaging was performed of the chest, abdomen and pelvis without intravenous contrast. Sagittal and coronal reformatted images were obtained on the technologist's workstation. DLP: 941.86 mGy-cm FINDINGS: Extensive density is present throughout the subcutaneous fatty tissues of the chest abdomen and pelvis consistent with anasarca. Free intraperitoneal fluid is present extending along the bilateral lateral conal fascia is to the dependent portion of the pelvis, probably overall stable in quantity compared to the prior study.. LUNGS: There are stable prominent bilateral pleural effusions, large on the right small to moderate on the left, in the central regions, there is associated compressive atelectasis containing air bronchograms. No mediastinal or hilar lymphadenopathy is present. CARDIAC \T\ VESSELS: Coronary artery calcifications and calcified plaque present within the thoracic aorta are noted. Trace pericardial fluid is present. BRONCHIAL: No endobronchial findings are noted. LIVER, GALLBLADDER, AND BILIARY TREE: The liver is normal in size, shape, and attenuation. No focal hepatic lesion or biliary ductal dilatation is present. The gallbladder is unremarkable with no evidence of radiopaque gallstones, gallbladder wall thickening, or obvious pericholecystic inflammatory changes. PANCREAS: Partially fatty replaced, no focal lesions.. SPLEEN: Unremarkable. ADRENAL GLANDS: No focal findings.. KIDNEYS AND URETERS: A prominent cyst is present within the lateral aspect of the right kidney exophytic, measuring 10 cm in diameter. A similar cystic structure is present in the upper pole the left kidney measuring 2 cm in diameter and fluid density by Hounsfield units. There is limited visualization of the renal collecting systems, multiple peripelvic cysts are present bilaterally.. BLADDER: A Pete catheter is present within the bladder lumen. GASTROINTESTINAL TRACT: A surgical drain is present in the right lower quadrant, with the tube extending to the midline anterior deep pelvis, anterior to the bladder. An ileostomy is identified in the left lower quadrant. No focal lesions are noted throughout the colon and small bowel. The appendix is not identified. ABDOMINAL WALL: The incisional site is identified in the lower abdomen upper pelvis just to the right of midline, a small fluid collection is present in the subcutaneous fat deep to the surgical wound, measuring approximately 7 cm in length by 1.2 cm in depth. This extends along the inferior half of the surgical incisional site. LYMPH NODES: Numerous retroperitoneal lymph nodes and mesenteric lymph nodes are present without definite evidence of lymphadenopathy. VASCULAR: Unremarkable. PELVIC VISCERA: The uterus is retroverted and retroflexed with no focal lesions identified. No adnexal mass lesions are noted.. OSSEOUS STRUCTURES: Severe degenerative changes are present in both left and right hips with numerous subchondral cystic structures present on both femoral and acetabular sides of the joints of both left and right hips. Flattening and remodeling of the left femoral head is suggestive of avascular necrosis or very severe degenerative changes. Multilevel degenerative changes are present in the lower thoracic and lumbar spine. IMPRESSION: Overall stable findings: 1. Extensive free fluid present with prominent bilateral pleural effusions with associated compressive atelectasis and free intraperitoneal fluid collections. 2. Findings suggestive of generalized anasarca. 3. Postoperative changes as described, as noted there is a fluid collection deep to the incisional site as described in detail above. 4. Peritoneal drain in the right lower quadrant and ileostomy and left lower quadrant as described. 5. No loculated thick-walled fluid collections are noted to suggest abscess formation.
--- NOTE | 2017-03-07 17:31 | Patient Discharge Instructions ---
Discharge Instructions General Discharge Information You were seen/treated for: Sepsis secondary to diverticulitis, UTI Perforated diverticulitis, colovesical fistula Status post Rodri procedure Right lower extremity DVT Anemia Special Instructions: Follow-up with PCP in one week after discharge Follow-up with the general surgeon in one week after discharge Follow-up with urology within 4-5 days after discharge. Keep the iglesias till and schedule appointment with Dr Jarquin for a cystoscopy Diet Continue normal diet: Yes Recommended Diet: Low Residue Activity Full Activity/No Limits: Yes Acute Coronary Syndrome Inclusion Criteria At DC or during hospital stay patient has or had the following: ACS DIAGNOSIS No Discharge Core Measures Meds if any: Prescribed or Continued at Discharge Meds if any: NOT Prescribed or Continued at Discharge Congestive Heart Failure Inclusion Criteria At DC or during hospital stay patient has or had the following: CHF DIAGNOSIS No Discharge Core Measures Meds if any: Prescribed or Continued at Discharge Meds if any: NOT Prescribed or Continued at Discharge Cerebrovascular accident Inclusion Criteria At DC or during hospital stay patient has or had the following: CVA/TIA Diagnosis No Discharge Core Measures Meds if any: Prescribed or Continued at Discharge Meds if any: NOT Prescribed or Continued at Discharge Venous thromboembolism Inclusion Criteria VTE Diagnosis Yes VTE Type Deep Venous Thrombosis VTE Confirmed by (Test) DUPLEX SCAN LOWER EXT Discharge Core Measures - Per Current guidelines, there needs to be overlap - treatment for the first 5 days of Warfarin therapy. - If discharged on Warfarin prior to 5 days of - overlap therapy, the patient will need to be - assessed for post discharge needs including - *Post discharge parental anticoagulation - *Warfarin and/or parental anticoagulation education - *Follow up date to check INR post discharge At least 5 days overlap therapy as Inpatient Yes Meds if any: Prescribed or Continued at Discharge Note: Overlap Therapy is Warfarin and Anticoagulant Meds if any: NOT Prescribed or Continued at Discharge
[2017-03-07 22:38] VITALS: BP 138/52
[2017-03-08 06:00] VITALS: BP 158/62
--- NOTE | 2017-03-08 07:27 | PN- General Surgery ---
Subjective Subjective: feeling well, denies abdominal pain, no n/v, tolerating low res diet, +stool from ostomy Objective Vital Signs and I&Os Vital Signs Date Time Temp Pulse Resp B/P B/P Pulse O2 O2 Flow FiO2 Mean Ox Delivery Rate 03/08 0600 98.3 93 22 158/62 93 Nasal 1.0L Cannula 03/08 0000 93 Nasal 1.0L Cannula 03/07 2238 98.3 98 18 138/52 93 Nasal 1.0L Cannula 03/07 1600 Nasal 1.0L Cannula 03/07 1444 96 03/07 1401 97.7 110 20 160/80 92 Nasal 1.0L Cannula 03/07 1326 Nasal 1.0L Cannula 03/07 1316 Nasal 1.0L Cannula 03/07 08 92 Nasal 1.0L Cannula Intake & Output 03/08 0800 03/08 0000 03/07 1600 03/07 0800 03/07 0000 03/06 1600 Intake Total 750 172 725 0151 Output Total 971 637 2684 291 697 3184 Balance -800 -850 -1450 -140 -210 -690 Intake, IV 300 140 10 500 Intake, Oral 450 480 240 720 Number 0 0 0 Bowel Movements Output, 0 0 0 10 Drainage Output, Stool 10 10 300 Output, Urine 500 313 7514 463 751 7336 Patient 206 lb Weight Physical Exam: GEN- NAD CARD- S1S2 RRR PULM- decreased bs throughout ABD- obese, soft, nt, midline mt intact with no erythema/tenderness/ drainage/fluctuance, stome pink w brown stoola nd gas in bag, KATE w serous output - off suction EXT- pitting edema bl calves - clear yellow urine in iglesias bag Current Medications: Current Medications Sig/Jacobo Start time Last Medication Dose Route Stop Time Status Admin Acetaminophen 1,000 MG Q12P PRN 02/24 0845 AC 02/28 N/A 1 UNIT IV 1955 Ampicillin Sodium/ 3,000 MG Q6 03/06 1200 AC 03/08 Sulbactam Sodium IV 0600 Sodium Chloride 100 ML Apixaban 10 MG BID 03/06 1009 AC 03/07 PO 03/12 2201 2105 Fluconazole 400 MG DAILY 03/08 1000 AC PO Fluconazole 400 MG Q24 03/03 1000 DC 03/07 Sodium Chloride 200 ML IV 0838 Furosemide 20 MG DAILY 03/05 2020 AC 03/07 IV 0838 Pantoprazole Sodium 40 MG DAILY 02/26 2038 AC 03/07 IV 0838 Potassium Chloride 40 MEQ BID 03/07 1000 DC 03/07 PO 03/07 220 210 Results Last 48 Hours of Labs: Laboratory Tests 03/08 03/07 03/06 0715 0723 1630 Chemistry Sodium (137 - 145 mmol/L) Pending 135 L Potassium (3.5 - 5.1 mmol/L) Pending 3.2 L Chloride (98 - 107 mmol/L) Pending 102 Carbon Dioxide (22 - 30 mmol/L) Pending 26 Anion Gap (5 - 16) Pending 7 BUN (7 - 17 mg/dL) Pending 10 Creatinine (0.5 - 1.0 mg/dL) Pending 0.6 Estimated GFR (>60 ml/min) > 60 BUN/Creatinine Ratio (7 - 25 %) Pending 16.7 Coagulation APTT Cancelled Hematology CBC w Diff Pending NO MAN DIFF REQ WBC (4.8 - 10.8 /CUMM) Pending 18.6 H RBC (4.20 - 5.40 /CUMM) Pending 3.01 L Hgb (12.0 - 16.0 G/DL) Pending 8.4 L Hct (37 - 47 %) Pending 25.6 L MCV (81.0 - 99.0 FL) Pending 85.0 MCH (27.0 - 31.0 PG) Pending 28.0 MCHC (33.0 - 37.0 G/DL) Pending 32.9 L RDW (11.5 - 14.5 %) Pending 18.4 H Plt Count (130 - 400 /CUMM) Pending 331 MPV (7.4 - 10.4 FL) Pending 9.5 Gran % (42.2 - 75.2 %) 93.0 H Lymphocytes % (20.5 - 51.1 %) 2.6 L Monocytes % (1.7 - 9.3 %) 4.2 Eosinophils % (0 - 5 %) 0.1 Basophils % (0.0 - 2.0 %) 0.1 Absolute Granulocytes (1.4 - 6.5 /CUMM) 17.3 H Absolute Lymphocytes (1.2 - 3.4 /CUMM) 0.5 L Absolute Monocytes (0.10 - 0.60 /CUMM) 0.8 H Absolute Eosinophils (0.0 - 0.7 /CUMM) 0 Absolute Basophils (0.0 - 0.2 /CUMM) 0 Assessment/Plan Assessment/Plan A- POD 10 sp hartmanns for perforated sigmoid/colovesical fistula/peritonitis, with persistent leukocytosis, stable P- -CT CAP yesterday with multiple findings, will radha Jacobs -jefferson per id -keep iglesias, kate in place. KATE to self suction 1hr/day -continue ostomy teaching -annette celis trc, ist -on eliquis for dvt - med mgmt per primary team -will radha attending Core Measures Venous Thromboembolism VTE Risk Factors Age>40 No Mechanical VTE Prophylaxis d/t N/A MechProphylax Ordered No VTE Pharm Prophylaxis d/t NA PharmProphylax ordered
--- NOTE | 2017-03-08 07:36 | PN- Housestaff ---
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 tach Status post extubation Subjective: She is seen and examined while at bedside having breakfast. She expresses disappointment at the fact that she was not able to "do good" during her physical therapy session yesterday. Tolerating regular diet. She does not endorse any acute complaints including fever, chills, shortness of breath, chest pain, palpitation, or abdominal pain. No acute overnight event reported by nursing staff. Review of Systems Constitutional: Reports: no symptoms. Objective Last 24 Hrs of Vital Signs/I&O Vital Signs Date Time Temp Pulse Resp B/P B/P Pulse O2 O2 Flow FiO2 Mean Ox Delivery Rate 03/08 0600 98.3 93 22 158/62 93 Nasal 1.0L Cannula 03/08 0000 93 Nasal 1.0L Cannula 03/07 2238 98.3 98 18 138/52 93 Nasal 1.0L Cannula 03/07 1600 Nasal 1.0L Cannula 03/07 1444 96 03/07 1401 97.7 110 20 160/80 92 Nasal 1.0L Cannula 03/07 1326 Nasal 1.0L Cannula 03/07 1316 Nasal 1.0L Cannula Intake & Output 03/08 1600 03/08 0800 03/08 0000 Intake Total 260 Output Total 800 850 Balance -540 -850 Intake, IV 260 Intake, Oral 0 Output, Stool 0 Output, Urine 800 850 Physical Exam General Appearance: Alert, Oriented X3, Cooperative Other Physical Findings: Neck: normal inspection, supple Respiratory: normal breath sounds, chest non-tender, no respiratory distress, lungs clear Cardiovascular: regular rate/rhythm,normal peripheral pulses Gastrointestinal: normal bowel sounds, soft, Colostomy in situ with greenish brown formed stools, MARYELLEN drain in situ in right abdomen serous fluid draining. Foleys catheter in place, urine with no particles Current Medications: Current Medications Sig/Jacobo Start time Last Medication Dose Route Stop Time Status Admin Acetaminophen 1,000 MG Q12P PRN 02/24 0845 AC 02/28 N/A 1 UNIT IV 1954 Ampicillin Sodium/ 3,000 MG Q6 03/06 1200 AC 03/08 Sulbactam Sodium IV 0600 Sodium Chloride 100 ML Apixaban 10 MG BID 03/06 1009 AC 03/07 PO 03/12 Fluconazole 400 MG DAILY 03/08 1000 AC PO Fluconazole 400 MG Q24 03/03 1000 DC 03/07 Sodium Chloride 200 ML IV 0838 Furosemide 20 MG DAILY 03/05 2019 AC 03/07 IV 0838 Pantoprazole Sodium 40 MG DAILY 02/26 2038 AC 03/07 IV 0838 Potassium Chloride 40 MEQ BID 03/07 1000 DC 03/07 PO 03/07 Last 24 Hrs of Lab/Caleb Results Last 24 Hrs of Labs/Mics: Laboratory Tests 03/08/17 0715: Anion Gap 6, Estimated GFR > 60, BUN/Creatinine Ratio 20.0, CBC w Diff NO MAN DIFF REQ, RBC 2.69 L, MCV 85.2, MCH 27.8, MCHC 32.6 L, RDW 18.5 H, MPV 9.1, Gran % 88.5 H, Lymphocytes % 4.5 L, Monocytes % 6.6, Eosinophils % 0.2, Basophils % 0.2, Absolute Granulocytes 9.3 H, Absolute Lymphocytes 0.5 L, Absolute Monocytes 0.7 H, Absolute Eosinophils 0, Absolute Basophils 0 Assessment/Plan Assessment: Ms Murphy is a 71-year-old woman with PMHx of arthritis, chronic b/l lower extremity edema presented to [place] ED on 02/22 with complaints of burning during urination and increased frequency and urgency, along with extreme weakness anorexia, and a 10 pound weight loss. She was initially being managed for sepsis of urological origin and a right leg DVT. She subsequently developed diarrhea, abdominal pain, hypotension and tachypnea requiring ICU admission. Chest X-ray revealed air under the diaphragm and coupled with the findings of her earlier CT abdomen showing colonic thickening. She had emergent exploratory laparotomy with general surgery and intraoperatively she was found to have perforated diverticulitis and colovesical fistula. She underwent a sigmoid colectomy with end colostomy and takedown of a colovesical fistula along with left oophorectomy. Postoperatively she had acute respiratory failure requiring mechanical ventilation as well as hypotension requiring pressors. She has made significant recovery since then and is off pressors and extubated. ------ Perforated colon from diverticulitis and colovesical fistula status post Hartmans procedure She had emergent exploratory laparotomy on 02/26 with general surgery and intraoperatively she was found to have perforated diverticulitis and colovesical fistula. She underwent asigmoid colectomy with end colostomy and takedown of a colovesical fistula along with left oophorectomy. Postoperatively she had acute respiratory failure requiring mechanical ventilation as well as hypotension requiring pressors. She has made significant recovery since then and came off pressors and extubated. Postoperatively she developed urine leakage from her intraabdominal MARYELLEN drain and had cystoscopy by urologist, Dr. Jarquin which showed that the MARYELLEN drain was adjacent to the open bladder region. As per urologist recommendations, the MARYELLEN drain was withdrawn slightly and the plan was to retain her iglesias catheter for at least 10 days until MARYELLEN drainage reduces as the bladder fistula heals. * s/p surgery postop day 10 * Initially on ceftriaxone and Flagyl for the first 4 days and then later switched to Unasyn on 02/26/2017 with blood cultures positive for Clostridium and Escherichia coli. * OR cultures positive for alpha strep, Bacteroides and yeast ( non albicans). Patient was started on fluconazole 400 mg IV on 03/03/2017 pending results. * Continue IV Unasyn day 11 and fluconozole day 6, leukocytosis that was initially persistent has now resolved. * monitor vitals closely. * Monitor for fever, WBC trend * Currently on low fiber diet * Keep Iglesias in place per urology recommendation * Follow-up surgery recommendations * Follow-up ID recommendations DVT right leg U/S doppler confirmed nonocclusive thrombus in the right proximal femoral vein. * On Elliquis day 3 will switch from 10 mg twice a day to 5 mg twice a day after 7 days * An echocardiogram done showed normal EF with no sign of RV strain. Bilateral lower extremity swelling/hfpef Patient has worsening bilateral lower extremity swelling up to her thighs. Echocardiogram was done which showed normal ejection fraction and stage I diastolic dysfunction. * Continue IV Lasix 20 mg daily. Anemia Acute on chronic with blood loss as possible etiology. Currently stable. Continue to monitor H&H NSVT She had a one time episode of non-sustained ventricular tachycardia in the setting of hypokalemia while in the ICU. No Recurrent episodes. Nonspecific lucencies in the spine largest measuring 9 mm in the S1. Patient will require further evaluation with can be done as an outpatient basis. unstageble pressure injury Patient was found to have 5x 9 cm area of poorly blanching erythema to buttocks, coccyx with the left buttocks 0.8x0.5 cm intact skin and right buttock 0.3 x 0.4 cm unstageable pressure injury. * She might require Clinitron bed for her decubitus, recommended by wound care team * Cleanse buttocks wounds with normal saline followed by hydrocolloid dressing every 3 days * Apply moisture barrier to periwound skin. DVT prophylaxis: ALPS+ eliqus Code status is full code Problem List: 1. Colovesical fistula 2. Sepsis 3. Anemia 4. Leukocytosis Pain Ratin Pain Location: none Pain Goal: Remain pain free Pain Plan: per pathway Tomorrow's Labs & Rationales: cbc: infection bep: lasix
[2017-03-08 08:03] LABS: ABSOLUTE BASOPHIL COUNT 0 /CUMM (0.0-0.2); ABSOLUTE EOSINOPHIL COUNT 0 /CUMM (0.0-0.7); ABSOLUTE GRANULOCYTE CT 9.3 /CUMM (1.4-6.5); ABSOLUTE LYMPH COUNT 0.5 /CUMM (1.2-3.4); ABSOLUTE MONOCYTE COUNT 0.7 /CUMM (0.10-0.60); BASOPHIL % 0.2 % (0.0-2.0); EOSINOPHIL % 0.2 % (0-5); HEMATOCRIT 22.9 % (37-47); MEAN CORPUSCULAR HGB 27.8 PG (27.0-31.0); MEAN CORPUSCULAR HGB CONC 32.6 G/DL (33.0-37.0); MEAN CORPUSCULAR VOLUME 85.2 FL (81.0-99.0); MEAN PLATELET VOLUME 9.1 FL (7.4-10.4); PLATELET COUNT 332 /CUMM (130-400); RBC DISTRIBUTION WIDTH 18.5 % (11.5-14.5); RED BLOOD CELL CT 2.69 /CUMM (4.20-5.40); WHITE BLOOD CELL COUNT 10.5 /CUMM (4.8-10.8)
[2017-03-08 08:38] LABS: GRANULOCYTE % 88.5 % (42.2-75.2)
--- NOTE | 2017-03-08 10:08 | PN- Att Addend ---
Attending Addendum Attending Brief Note Patient in bed in no acute distress. Skin to get a special bed to avoid pressure on her decubitus ulcer. Patient has a little cough today Vital signs are stable no fever. No other major changes, white count finally down to 10,500 To continue present treatments, get a PT evaluation. Intake & Output 03/08 1600 03/08 0400 03/07 1600 03/07 0400 03/06 1600 03/06 0400 Intake Total 260 6659 787 7333 101.4 Output Total 077 237 2162 460 3110 1225 Balance -540 -850 -1590 -210 -1890 -1123.6 Intake, IV 260 440 10 500 101.4 Intake, Oral 0 930 240 720 Number 0 0 0 Bowel Movements Output, 0 0 10 0 Drainage Output, Stool 0 10 10 300 225 Output, Urine 667 315 5145 450 2800 1000 Patient 206 lb 194 lb Weight Current Medications Sig/Jacobo Start time Last Medication Dose Route Stop Time Status Admin Acetaminophen 1,000 MG Q12P PRN 02/24 0845 AC 02/28 N/A 1 UNIT IV 195 Ampicillin Sodium/ 3,000 MG Q6 03/06 1200 AC 03/08 Sulbactam Sodium IV 0600 Sodium Chloride 100 ML Apixaban 10 MG BID 03/06 1009 AC 03/07 PO 03/12 220 210 Fluconazole 400 MG DAILY 03/08 1000 AC PO Fluconazole 400 MG Q24 03/03 1000 DC 03/07 Sodium Chloride 200 ML IV 0838 Furosemide 20 MG DAILY 03/05 2020 AC 03/07 IV 0838 Pantoprazole Sodium 40 MG DAILY 02/26 2038 AC 03/07 IV 0838 Potassium Chloride 40 MEQ BID 03/07 1000 DC 03/07 PO 03/07 2201 2105 Laboratory Tests 03/08/17 0715: Anion Gap 6, Estimated GFR > 60, BUN/Creatinine Ratio 20.0, CBC w Diff NO MAN DIFF REQ, RBC 2.69 L, MCV 85.2, MCH 27.8, MCHC 32.6 L, RDW 18.5 H, MPV 9.1, Gran % 88.5 H, Lymphocytes % 4.5 L, Monocytes % 6.6, Eosinophils % 0.2, Basophils % 0.2, Absolute Granulocytes 9.3 H, Absolute Lymphocytes 0.5 L, Absolute Monocytes 0.7 H, Absolute Eosinophils 0, Absolute Basophils 0 03/07/17 0723: Anion Gap 7, Estimated GFR > 60, BUN/Creatinine Ratio 16.7, CBC w Diff NO MAN DIFF REQ, RBC 3.01 L, MCV 85.0, MCH 28.0, MCHC 32.9 L, RDW 18.4 H, MPV 9.5, Gran % 93.0 H, Lymphocytes % 2.6 L, Monocytes % 4.2, Eosinophils % 0.1, Basophils % 0.1, Absolute Granulocytes 17.3 H, Absolute Lymphocytes 0.5 L, Absolute Monocytes 0.8 H, Absolute Eosinophils 0, Absolute Basophils 0 03/06/17 1630: APTT Cancelled 03/06/17 0600: Sodium Cancelled, Potassium Cancelled, Chloride Cancelled, Carbon Dioxide Cancelled, Anion Gap Cancelled, BUN Cancelled, Creatinine Cancelled, BUN/ Creatinine Ratio Cancelled, CBC w Diff Cancelled, WBC Cancelled, RBC Cancelled, Hgb Cancelled, Hct Cancelled, MCV Cancelled, MCH Cancelled, MCHC Cancelled, RDW Cancelled, Plt Count Cancelled, MPV Cancelled 03/06/17 0410: APTT 75 H 03/05/17 1500: APTT 81 H Vital Signs Date Time Temp Pulse Resp B/P B/P Pulse O2 O2 Flow FiO2 Mean Ox Delivery Rate 03/08 0600 98.3 93 22 158/62 93 Nasal 1.0L Cannula 03/08 0000 93 Nasal 1.0L Cannula 03/07 2238 98.3 98 18 138/52 93 Nasal 1.0L Cannula 03/07 1600 Nasal 1.0L Cannula 03/07 1444 96 03/07 1401 97.7 110 20 160/80 92 Nasal 1.0L Cannula 03/07 1326 Nasal 1.0L Cannula 03/07 1316 Nasal 1.0L Cannula
--- NOTE | 2017-03-08 10:39 | PN- General Surgery ---
Surgical Brief Attending Note Brief Attending Note: Patient doing well. CT reviewed. No intraabdominal concerns. Pleural effusions, defer management to primary team. Continue diuresis as tolerated. Patient severely debilitated. will need STR. PLan to remove MARYELLEN drain prior to discharge. Continue iglesias two weeks from cystoscopy (10 more days).
--- NOTE | 2017-03-08 12:38 | PN- Infect Dx ---
Subjective Subjective: Afebrile without complaints Objective Last 24 Hrs of Vital Signs/I&O Vital Signs Date Time Temp Pulse Resp B/P B/P Pulse O2 O2 Flow FiO2 Mean Ox Delivery Rate 03/08 0600 98.3 93 22 158/62 93 Nasal 1.0L Cannula 03/08 0000 93 Nasal 1.0L Cannula 03/07 2238 98.3 98 18 138/52 93 Nasal 1.0L Cannula 03/07 1600 Nasal 1.0L Cannula 03/07 1444 96 03/07 1401 97.7 110 20 160/80 92 Nasal 1.0L Cannula 03/07 1326 Nasal 1.0L Cannula 03/07 1316 Nasal 1.0L Cannula Intake & Output 03/08 1600 03/08 0800 03/08 0000 Intake Total 260 Output Total 800 850 Balance -540 -850 Intake, IV 260 Intake, Oral 0 Output, Stool 0 Output, Urine 800 850 Physical Exam Other Physical Findings: She appears comfortable in no acute distress Lungs decreased breath sounds at both bases Heart regular rhythm with no murmur Abdomen is soft, nontender with positive bowel sounds; colostomy with stool in the bag; MARYELLEN drain remains in place on the right, with no output Extremities 2+ edema both lower extremities Pete catheter remains in place Results Last 24 Hours of Lab Results: Laboratory Tests 03/08 0715 Chemistry Sodium (137 - 145 mmol/L) 135 L Potassium (3.5 - 5.1 mmol/L) 3.7 Chloride (98 - 107 mmol/L) 103 Carbon Dioxide (22 - 30 mmol/L) 26 Anion Gap (5 - 16) 6 BUN (7 - 17 mg/dL) 10 Creatinine (0.5 - 1.0 mg/dL) 0.5 Estimated GFR (>60 ml/min) > 60 BUN/Creatinine Ratio (7 - 25 %) 20.0 Hematology CBC w Diff NO MAN DIFF REQ WBC (4.8 - 10.8 /CUMM) 10.5 RBC (4.20 - 5.40 /CUMM) 2.69 L Hgb (12.0 - 16.0 G/DL) 7.5 L Hct (37 - 47 %) 22.9 L MCV (81.0 - 99.0 FL) 85.2 MCH (27.0 - 31.0 PG) 27.8 MCHC (33.0 - 37.0 G/DL) 32.6 L RDW (11.5 - 14.5 %) 18.5 H Plt Count (130 - 400 /CUMM) 332 MPV (7.4 - 10.4 FL) 9.1 Gran % (42.2 - 75.2 %) 88.5 H Lymphocytes % (20.5 - 51.1 %) 4.5 L Monocytes % (1.7 - 9.3 %) 6.6 Eosinophils % (0 - 5 %) 0.2 Basophils % (0.0 - 2.0 %) 0.2 Absolute Granulocytes (1.4 - 6.5 /CUMM) 9.3 H Absolute Lymphocytes (1.2 - 3.4 /CUMM) 0.5 L Absolute Monocytes (0.10 - 0.60 /CUMM) 0.7 H Absolute Eosinophils (0.0 - 0.7 /CUMM) 0 Absolute Basophils (0.0 - 0.2 /CUMM) 0 Last 24 Hours of Caleb Results: No new cultures Recent Imaging Studies: CT of the chest, abdomen and pelvis March 07 reveals stable prominent bilateral pleural effusions, right greater than left, with associated compressive atelectasis; a fluid collection, measuring 7 x 1.2 cm in the subcutaneous fat deep to the surgical wound; no loculated thick-walled fluid collection; extensive free fluid consistent with anasarca Assessment/Plan Impression: Overall improved, with temperatures remaining normal and with her white blood cell count now normal as well on Unasyn and Fluconazole, now 10 days status post sigmoid colectomy with end colostomy and takedown of a colovesical fistula (with left oophorectomy) for a perforated diverticulitis with a colovesical fistula, with multiple organisms, including Escherichia coli, Clostridium and yeast not Olimpia albicans (with the ID and sensitivities pending), isolated from the blood and OR cultures. The significance of the fluid collection seen on CT scan is unclear with surgical follow-up noted. Suggestion: 1. Await ID and sensitivities of her Olimpia species 2. Continue Unasyn and Fluconazole
[2017-03-08 14:37] VITALS: BP 144/68
--- NOTE | 2017-03-08 17:06 | PN- Urology ---
Subjective Subjective: Pt feels better and stronger. PT working with her. SHe has no genitalia complaints and her abdomen is not bothering her. Review of Systems Constitutional: Reports: no symptoms. EENTM: Reports: no symptoms. Cardiovascular: Reports: no symptoms. Respiratory: Reports: no symptoms. Gastrointestinal: Reports: no symptoms. Genitourinary: Reports: no symptoms. Musculoskeletal: Reports: no symptoms (weakness). Skin: Reports: no symptoms. Neurological/Psychological: Reports: no symptoms. Hematologic/Endocrine: Reports: no symptoms. Immunologic/Allergic: Reports: no symptoms. Objective Vital Signs and I&Os Vital Signs Date Time Temp Pulse Resp B/P B/P Pulse O2 O2 Flow FiO2 Mean Ox Delivery Rate 03/08 1437 98.1 98 20 144/68 95 Nasal 2.0L Cannula 03/08 0800 Nasal 1.0L Cannula 03/08 0600 98.3 93 22 158/62 93 Nasal 1.0L Cannula 03/08 0000 93 Nasal 1.0L Cannula 03/07 2238 98.3 98 18 138/52 93 Nasal 1.0L Cannula Intake & Output 03/08 1600 03/08 0800 03/08 0000 03/07 1600 03/07 0800 03/07 0000 Intake Total 260 750 620 250 Output Total 1999 381 158 3094 760 460 Balance -1999 -540 -850 -1450 -140 -210 Intake, IV 260 300 140 10 Intake, Oral 0 450 480 240 Number 0 0 0 Bowel Movements Output, 0 0 0 Drainage Output, Stool 0 10 10 Output, Urine 1999 740 253 5978 750 450 Patient 93.497 kg Weight Physical Exam: pt awake and alert, NAD eating in bed abd soft, ND/NT, drain in place with min drainage Iglesias catheter in place draining clear yellow urine Physical Exam General Appearance: no apparent distress, alert, awake, comfortable Head: normal appearance Ears, Nose, Throat: normal ENT inspection Respiratory: no respiratory distress, quiet respiration Abdomen: soft, non-tender Rectal: deferred Neurologic/Psychiatric: awake, alert, oriented x 3 Skin: intact, normal color Pelvic: Appearance Normal Current Medications: Current Medications Sig/Jacobo Start time Last Medication Dose Route Stop Time Status Admin Acetaminophen 1,000 MG Q12P PRN 02/24 0845 AC 02/28 N/A 1 UNIT IV 1954 Ampicillin Sodium/ 3,000 MG Q6 03/06 1200 AC 03/08 Sulbactam Sodium IV 1243 Sodium Chloride 100 ML Apixaban 10 MG BID 03/06 1009 AC 03/08 PO 03/12 2200 1047 Fluconazole 400 MG DAILY 03/08 1000 AC 03/08 PO 1047 Furosemide 20 MG DAILY 03/05 2019 AC 03/08 IV 1047 Pantoprazole Sodium 40 MG DAILY 02/26 2038 AC 03/08 IV 1047 Patient Medication 1 ED ONE ONE 03/08 1015 DC Teaching ED 03/08 1016 Potassium Chloride 40 MEQ BID 03/07 1000 DC 03/07 PO 03/07 2200 210 Results Last 48 Hours of Labs: Laboratory Tests 03/08 03/07 0715 0723 Chemistry Sodium (137 - 145 mmol/L) 135 L 135 L Potassium (3.5 - 5.1 mmol/L) 3.7 3.2 L Chloride (98 - 107 mmol/L) 103 102 Carbon Dioxide (22 - 30 mmol/L) 26 26 Anion Gap (5 - 16) 6 7 BUN (7 - 17 mg/dL) 10 10 Creatinine (0.5 - 1.0 mg/dL) 0.5 0.6 Estimated GFR (>60 ml/min) > 60 > 60 BUN/Creatinine Ratio (7 - 25 %) 20.0 16.7 Hematology CBC w Diff NO MAN DIFF REQ NO MAN DIFF REQ WBC (4.8 - 10.8 /CUMM) 10.5 18.6 H RBC (4.20 - 5.40 /CUMM) 2.69 L 3.01 L Hgb (12.0 - 16.0 G/DL) 7.5 L 8.4 L Hct (37 - 47 %) 22.9 L 25.6 L MCV (81.0 - 99.0 FL) 85.2 85.0 MCH (27.0 - 31.0 PG) 27.8 28.0 MCHC (33.0 - 37.0 G/DL) 32.6 L 32.9 L RDW (11.5 - 14.5 %) 18.5 H 18.4 H Plt Count (130 - 400 /CUMM) 332 331 MPV (7.4 - 10.4 FL) 9.1 9.5 Gran % (42.2 - 75.2 %) 88.5 H 93.0 H Lymphocytes % (20.5 - 51.1 %) 4.5 L 2.6 L Monocytes % (1.7 - 9.3 %) 6.6 4.2 Eosinophils % (0 - 5 %) 0.2 0.1 Basophils % (0.0 - 2.0 %) 0.2 0.1 Absolute Granulocytes (1.4 - 6.5 /CUMM) 9.3 H 17.3 H Absolute Lymphocytes (1.2 - 3.4 /CUMM) 0.5 L 0.5 L Absolute Monocytes (0.10 - 0.60 /CUMM) 0.7 H 0.8 H Absolute Eosinophils (0.0 - 0.7 /CUMM) 0 0 Absolute Basophils (0.0 - 0.2 /CUMM) 0 0 Recent Imaging Studies: CT scan with pelvic collection not abscess drain away from fistula site iglesias in place Assessment/Plan Assessment/Plan 71yo female s/p Rodri's sec to colovesical fistula with postop urine drainage from MARYELLEN drain. Drain withdrawn from site of fistula and the drainage from MARYELLEN has decreased to min and UOP within normal limits and clear. CT showed a collection that is likely urine but not consistent with abscess. Ambulation should help with mobilization of fluid but may need aspiration of collection if develops abd pain, fever, etc. Cont iglesias to gravity for full 2 weeks then can perform cystoscopy to see progress of fistula closure from bladder. Core Measures Venous Thromboembolism VTE Risk Factors Age>40 No Mechanical VTE Prophylaxis d/t N/A MechProphylax Ordered No VTE Pharm Prophylaxis d/t NA PharmProphylax ordered
[2017-03-08 22:44] VITALS: BP 170/70
[2017-03-09 06:15] VITALS: BP 142/64
--- NOTE | 2017-03-09 07:17 | PN- General Surgery ---
See Addendum Subjective Subjective: Patient offer no complaints this morning. She states she ambulated OOB to chair, but has been unable to ambulate due to deconditioned state. Overnight she had a fever of 101.3. Objective Vital Signs and I&Os Vital Signs Date Time Temp Pulse Resp B/P B/P Pulse O2 O2 Flow FiO2 Mean Ox Delivery Rate 03/09 0615 97.8 81 18 142/64 91 Nasal Cannula 03/09 0000 Nasal 1.0L Cannula 03/08 2244 100.1 96 18 170/70 92 Nasal Cannula 03/08 2124 101.0 03/08 1600 Nasal 1.0L Cannula 03/08 1437 98.1 98 20 144/68 95 Nasal 2.0L Cannula 03/08 0800 Nasal 1.0L Cannula Intake & Output 03/09 0800 03/09 0000 03/08 1600 03/08 0800 03/08 0000 03/07 1600 Intake Total 150 2190 260 750 Output Total 1103 2000 254 414 5400 Balance -953 190 -540 -850 -1450 Intake, IV 150 120 260 300 Intake, Oral 2070 0 450 Number 0 Bowel Movements Output, 3 0 0 Drainage Output, Stool 400 0 Output, Urine 700 2000 040 180 8853 Physical Exam: Gen - awake an alert in NAD Lungs - coarse breath sounds throughout Abd - soft, incision closed with mt, healing well with no signs of infection, ostomy with stool in the bag, MARYELLEN straw colored Ext - chronic le edema, no calf tenderness Current Medications: Current Medications Sig/Jacobo Start time Last Medication Dose Route Stop Time Status Admin Acetaminophen 1,000 MG .STK-MED ONE 03/08 2120 DC IV 03/08 2121 Acetaminophen 1,000 MG Q12P PRN 02/24 0845 AC 03/08 N/A 1 UNIT IV 2123 Ampicillin Sodium/ 3,000 MG Q6 03/06 1200 AC 03/09 Sulbactam Sodium IV 0527 Sodium Chloride 100 ML Apixaban 10 MG BID 03/06 100 AC 03/08 PO 03/12 Fluconazole 400 MG DAILY 03/08 1000 AC 03/08 PO 1047 Furosemide 20 MG DAILY 03/05 2019 AC 03/08 IV 1047 Pantoprazole Sodium 40 MG DAILY 02/26 2038 AC 03/08 IV 1047 Patient Medication 1 ED ONE ONE 03/08 1015 DC Teaching ED 03/08 1016 Results Last 48 Hours of Labs: Laboratory Tests 03/08 0715 Chemistry Sodium (137 - 145 mmol/L) 135 L Potassium (3.5 - 5.1 mmol/L) 3.7 Chloride (98 - 107 mmol/L) 103 Carbon Dioxide (22 - 30 mmol/L) 26 Anion Gap (5 - 16) 6 BUN (7 - 17 mg/dL) 10 Creatinine (0.5 - 1.0 mg/dL) 0.5 Estimated GFR (>60 ml/min) > 60 BUN/Creatinine Ratio (7 - 25 %) 20.0 Hematology CBC w Diff NO MAN DIFF REQ WBC (4.8 - 10.8 /CUMM) 10.5 RBC (4.20 - 5.40 /CUMM) 2.69 L Hgb (12.0 - 16.0 G/DL) 7.5 L Hct (37 - 47 %) 22.9 L MCV (81.0 - 99.0 FL) 85.2 MCH (27.0 - 31.0 PG) 27.8 MCHC (33.0 - 37.0 G/DL) 32.6 L RDW (11.5 - 14.5 %) 18.5 H Plt Count (130 - 400 /CUMM) 332 MPV (7.4 - 10.4 FL) 9.1 Gran % (42.2 - 75.2 %) 88.5 H Lymphocytes % (20.5 - 51.1 %) 4.5 L Monocytes % (1.7 - 9.3 %) 6.6 Eosinophils % (0 - 5 %) 0.2 Basophils % (0.0 - 2.0 %) 0.2 Absolute Granulocytes (1.4 - 6.5 /CUMM) 9.3 H Absolute Lymphocytes (1.2 - 3.4 /CUMM) 0.5 L Absolute Monocytes (0.10 - 0.60 /CUMM) 0.7 H Absolute Eosinophils (0.0 - 0.7 /CUMM) 0 Absolute Basophils (0.0 - 0.2 /CUMM) 0 Assessment/Plan Assessment/Plan 71 F POD 11 s/p hartmanns for perforated sigmoid/colovesical fistula/peritonitis , with resolved leukocytosis and a fever of 101.3 overnight. Low residue diet Abx per ID - unasyn/diflucan Eliquis for dvt Pete in place per uroology - [address] to self suction 1hr/day ? aspiration of CT fluid collection in setting of fever OOB with PT TRC Med mgmt per primary team F/u labs Will d/w Jacobs Core Measures Venous Thromboembolism VTE Risk Factors Age>40 No Mechanical VTE Prophylaxis d/t N/A MechProphylax Ordered No VTE Pharm Prophylaxis d/t NA PharmProphylax ordered
--- NOTE | 2017-03-09 08:08 | PN- Housestaff ---
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 tach Status post extubation Subjective: Seen and examined at bedside. Febrile o/n as evident by charted Tmax of 101F She does deny any chills though, but does state that she felt her mattresss was too warm last night. She appears more upbeat compared to yesterday. She denies any abdominal pain, n/v,sob/cp/palpitation. Review of Systems Constitutional: Reports: see HPI. Objective Last 24 Hrs of Vital Signs/I&O Vital Signs Date Time Temp Pulse Resp B/P B/P Pulse O2 O2 Flow FiO2 Mean Ox Delivery Rate 03/09 0615 97.8 81 18 142/64 91 Nasal Cannula 03/09 0000 Nasal 1.0L Cannula 03/08 2244 100.1 96 18 170/70 92 Nasal Cannula 03/08 2124 101.0 03/08 1600 Nasal 1.0L Cannula 03/08 1437 98.1 98 20 144/68 95 Nasal 2.0L Cannula Intake & Output 03/09 1600 03/09 0800 03/09 0000 Intake Total 500 150 Output Total 1999 1103 Balance -1500 -953 Intake, IV 300 150 Intake, Oral 200 Output, 0 3 Drainage Output, Stool 200 400 Output, Urine 1800 700 Physical Exam General Appearance: Alert, Oriented X3, Cooperative Other Physical Findings: Neck: normal inspection, supple Respiratory: normal breath sounds, chest non-tender, no respiratory distress, lungs clear Cardiovascular: regular rate/rhythm,normal peripheral pulses Gastrointestinal: normal bowel sounds, soft, Colostomy in situ with greenish brown formed stools, MARYELLEN drain in situ in right abdomen serous fluid draining. Foleys catheter in place, urine with no particles Current Medications: Current Medications Sig/Jacobo Start time Last Medication Dose Route Stop Time Status Admin Acetaminophen 1,000 MG .STK-MED ONE 03/08 2120 DC IV 03/08 2121 Acetaminophen 1,000 MG Q12P PRN 02/24 0845 03/08 N/A 1 UNIT IV 2123 Ampicillin Sodium/ 3,000 MG Q6 03/06 1200 AC 03/09 Sulbactam Sodium IV 0527 Sodium Chloride 100 ML Apixaban 10 MG BID 03/06 1009 AC 03/08 PO 02/04 2201 2124 Fluconazole 400 MG DAILY 03/08 1000 AC 03/08 PO 1047 Furosemide 20 MG DAILY 03/05 2019 AC 03/08 IV 1047 Pantoprazole Sodium 40 MG DAILY 02/26 2038 03/08 IV 1047 Patient Medication 1 ED ONE ONE 03/08 1015 [facility] ED 03/08 1016 Last 24 Hrs of Lab/Caleb Results Last 24 Hrs of Labs/Mics: Laboratory Tests 03/09/17 0736: Anion Gap 8, Estimated GFR > 60, BUN/Creatinine Ratio 18.3, CBC w Diff Pending, WBC Pending, RBC Pending, Hgb Pending, Hct Pending, MCV Pending, MCH Pending, MCHC Pending, RDW Pending, Plt Count Pending, MPV Pending, Gran % Pending, Lymphocytes % Pending, Monocytes % Pending, Eosinophils % Pending, Basophils % Pending, Absolute Granulocytes Pending, Absolute Lymphocytes Pending, Absolute Monocytes Pending, Absolute Eosinophils Pending, Absolute Basophils Pending Assessment/Plan Assessment: Ms Murphy is a 71-year-old woman with PMHx of arthritis, chronic b/l lower extremity edema presented to [facility] ED on 02/22 with complaints of burning during urination and increased frequency and urgency, along with extreme weakness anorexia, and a 10 pound weight loss. She was initially being managed for sepsis of urological origin and a right leg DVT. She subsequently developed diarrhea, abdominal pain, hypotension and tachypnea requiring ICU admission. Chest X-ray revealed air under the diaphragm and coupled with the findings of her earlier CT abdomen showing colonic thickening. She had emergent exploratory laparotomy with general surgery and intraoperatively she was found to have perforated diverticulitis and colovesical fistula. She underwent a sigmoid colectomy with end colostomy and takedown of a colovesical fistula along with left oophorectomy. Postoperatively she had acute respiratory failure requiring mechanical ventilation as well as hypotension requiring pressors. She has made significant recovery since then and is off pressors and extubated. ------ Perforated colon from diverticulitis and colovesical fistula status post Hartmans procedure She had emergent exploratory laparotomy on 02/26 with general surgery and intraoperatively she was found to have perforated diverticulitis and colovesical fistula. She underwent asigmoid colectomy with end colostomy and takedown of a colovesical fistula along with left oophorectomy. Postoperatively she had acute respiratory failure requiring mechanical ventilation as well as hypotension requiring pressors. She has made significant recovery since then and came off pressors and extubated. Postoperatively she developed urine leakage from her intraabdominal MARYELLEN drain and had cystoscopy by urologist, Dr. Jarquin which showed that the MARYELLEN drain was adjacent to the open bladder region. As per urologist recommendations, the MARYELLEN drain was withdrawn slightly and the plan was to retain her iglesias catheter for at least 10 days until MARYELLEN drainage reduces as the bladder fistula heals. * s/p surgery postop day 11 * Initially on ceftriaxone and Flagyl for the first 4 days and then later switched to Unasyn on 02/26/2017 with blood cultures positive for Clostridium and Escherichia coli. * OR cultures positive for alpha strep, Bacteroides and yeast ( non albicans). Patient was started on fluconazole 400 mg IV on 03/03/2017 pending results. * Febrile o/n but no leukocytosis for 48 after a previus period of peristent leukocytiosis. Continue IV Unasyn day 12 and fluconozole day 7 * monitor vitals closely. * Monitor for fever, WBC trend * Currently on low fiber diet * Keep Iglesias in place per urology recommendation * Follow-up surgery recommendations * Follow-up ID recommendations DVT right leg U/S doppler confirmed nonocclusive thrombus in the right proximal femoral vein. * On Elliquis day 3 will switch from 10 mg twice a day to 5 mg twice a day after 7 days * An echocardiogram done showed normal EF with no sign of RV strain. Bilateral lower extremity swelling/hfpef Patient has worsening bilateral lower extremity swelling up to her thighs. Echocardiogram was done which showed normal ejection fraction and stage I diastolic dysfunction. * Continue IV Lasix 20 mg daily. Anemia Acute on chronic with blood loss as possible etiology. Currently stable. Continue to monitor H&H NSVT She had a one time episode of non-sustained ventricular tachycardia in the setting of hypokalemia while in the ICU. No Recurrent episodes. Nonspecific lucencies in the spine largest measuring 9 mm in the S1. Patient will require further evaluation with can be done as an outpatient basis. unstageble pressure injury Patient was found to have 5x 9 cm area of poorly blanching erythema to buttocks, coccyx with the left buttocks 0.8x0.5 cm intact skin and right buttock 0.3 x 0.4 cm unstageable pressure injury. * She might require Clinitron bed for her decubitus, recommended by wound care team * Cleanse buttocks wounds with normal saline followed by hydrocolloid dressing every 3 days * Apply moisture barrier to periwound skin. DVT prophylaxis: ALPS+ eliqus Code status is full code Problem List: 1. Colovesical fistula 2. Leukocytosis 3. Colitis Pain Ratin Pain Location: per pathway Pain Goal: Pain 4 or less Pain Plan: per pathway Tomorrow's Labs & Rationales: cbc bep
[2017-03-09 08:50] LABS: ABSOLUTE BASOPHIL COUNT 0 /CUMM (0.0-0.2); ABSOLUTE EOSINOPHIL COUNT 0 /CUMM (0.0-0.7); ABSOLUTE GRANULOCYTE CT 7.4 /CUMM (1.4-6.5); ABSOLUTE LYMPH COUNT 0.5 /CUMM (1.2-3.4); ABSOLUTE MONOCYTE COUNT 0.4 /CUMM (0.10-0.60); BASOPHIL % 0.2 % (0.0-2.0); EOSINOPHIL % 0.2 % (0-5); HEMATOCRIT 23.6 % (37-47); MEAN CORPUSCULAR HGB 27.9 PG (27.0-31.0); MEAN CORPUSCULAR VOLUME 84.7 FL (81.0-99.0); PLATELET COUNT 356 /CUMM (130-400); RED BLOOD CELL CT 2.79 /CUMM (4.20-5.40); WHITE BLOOD CELL COUNT 8.4 /CUMM (4.8-10.8)
--- NOTE | 2017-03-09 11:29 | PN- Att Addend ---
Attending Addendum Attending Brief Note Patient sitting in the chair, looking and feeling better had a temperature of 101 yesterday afebrile today other vital signs are stable , patient states she stood for the first time with a physical therapist today other changes on physical her white count is 8400 hemoglobin 7.8 hematocrit 23.6 check with infectious disease about the length needed for the antibiotic and if there is any significance of the patient having had one elevated temperature with normal white count now is stable go to short-term rehabilitation. Intake & Output 03/09 1600 03/09 1600 03/08 04003/07 1600 03/07 040 Intake Total 740 863 0047 1370 250 Output Total 1999 1103 2800 850 2960 460 Balance -1500 -953 -350 -850 -1590 -210 Intake, IV 300 150 380 440 10 Intake, Oral 200 2070 930 240 Number 0 0 Bowel Movements Output, 0 3 0 0 0 Drainage Output, Stool 200 400 0 10 10 Output, Urine 5401 187 6315 850 2950 450 Patient 206 lb Weight Current Medications Sig/Jacobo Start time Last Medication Dose Route Stop Time Status Admin Acetaminophen 1,000 MG .STK-MED ONE 03/08 2120 DC IV 03/08 2121 Acetaminophen 1,000 MG Q12P PRN 02/24 0845 03/08 N/A 1 UNIT IV 2123 Ampicillin Sodium/ 3,000 MG Q6 03/06 1200 AC 03/09 Sulbactam Sodium IV 0527 Sodium Chloride 100 ML Apixaban 10 MG BID 03/06 1009 AC 03/09 PO 03/12 2201 0920 Fluconazole 400 MG DAILY 03/08 1000 AC 03/09 PO 0920 Furosemide 20 MG DAILY 03/05 2019 AC 03/09 IV 0920 Pantoprazole Sodium 40 MG DAILY 02/26 2038 AC 03/09 IV 0920 Laboratory Tests 03/09/17 0736: Anion Gap 8, Estimated GFR > 60, BUN/Creatinine Ratio 18.3, CBC w Diff NO MAN DIFF REQ, RBC 2.79 L, MCV 84.7, MCH 27.9, MCHC 33.0, RDW 19.0 H, MPV 9.0, Gran % 88.0 H, Lymphocytes % 6.4 L, Monocytes % 5.2, Eosinophils % 0.2, Basophils % 0.2, Absolute Granulocytes 7.4 H, Absolute Lymphocytes 0.5 L, Absolute Monocytes 0.4, Absolute Eosinophils 0, Absolute Basophils 0 03/08/17 0715: Anion Gap 6, Estimated GFR > 60, BUN/Creatinine Ratio 20.0, CBC w Diff NO MAN DIFF REQ, RBC 2.69 L, MCV 85.2, MCH 27.8, MCHC 32.6 L, RDW 18.5 H, MPV 9.1, Gran % 88.5 H, Lymphocytes % 4.5 L, Monocytes % 6.6, Eosinophils % 0.2, Basophils % 0.2, Absolute Granulocytes 9.3 H, Absolute Lymphocytes 0.5 L, Absolute Monocytes 0.7 H, Absolute Eosinophils 0, Absolute Basophils 0 03/07/17 0723: Anion Gap 7, Estimated GFR > 60, BUN/Creatinine Ratio 16.7, CBC w Diff NO MAN DIFF REQ, RBC 3.01 L, MCV 85.0, MCH 28.0, MCHC 32.9 L, RDW 18.4 H, MPV 9.5, Gran % 93.0 H, Lymphocytes % 2.6 L, Monocytes % 4.2, Eosinophils % 0.1, Basophils % 0.1, Absolute Granulocytes 17.3 H, Absolute Lymphocytes 0.5 L, Absolute Monocytes 0.8 H, Absolute Eosinophils 0, Absolute Basophils 0 03/06/17 1630: APTT Cancelled Vital Signs Date Time Temp Pulse Resp B/P B/P Pulse O2 O2 Flow FiO2 Mean Ox Delivery Rate 03/09 0615 97.8 81 18 142/64 91 Nasal Cannula 03/09 0000 Nasal 1.0L Cannula 03/08 2244 100.1 96 18 170/70 92 Nasal Cannula 03/08 2124 101.0 03/08 1600 Nasal 1.0L Cannula 03/08 1437 98.1 98 20 144/68 95 Nasal 2.0L Cannula
--- NOTE | 2017-03-09 14:10 | PN- Infect Dx ---
Subjective Subjective: MAXIMUM TEMPERATURE 101. She has no complaints. Objective Last 24 Hrs of Vital Signs/I&O Vital Signs Date Time Temp Pulse Resp B/P B/P Pulse O2 O2 Flow FiO2 Mean Ox Delivery Rate 03/09 0800 93 Nasal 1.0L Cannula 03/09 0615 97.8 81 18 142/64 91 Nasal Cannula 03/09 0000 Nasal 1.0L Cannula 03/08 2244 100.1 96 18 170/70 92 Nasal Cannula 03/08 2124 101.0 03/08 1600 Nasal 1.0L Cannula 03/08 1437 98.1 98 20 144/68 95 Nasal 2.0L Cannula Intake & Output 03/09 1600 03/09 0800 03/09 0000 Intake Total 500 150 Output Total 1999 1103 Balance -1500 -953 Intake, IV 300 150 Intake, Oral 200 Output, 0 3 Drainage Output, Stool 200 400 Output, Urine 1800 700 Physical Exam Other Physical Findings: She appears comfortable in no acute distress Lungs decreased breath sounds both bases Heart regular rhythm with no murmur Abdomen is soft, nontender with positive bowel sounds; incision clean, with no erythema or drainage Extremities 2+ edema both lower extremities Pete catheter remains in place Results Last 24 Hours of Lab Results: Laboratory Tests 03/09 0736 Chemistry Sodium (137 - 145 mmol/L) 137 Potassium (3.5 - 5.1 mmol/L) 3.7 Chloride (98 - 107 mmol/L) 103 Carbon Dioxide (22 - 30 mmol/L) 26 Anion Gap (5 - 16) 8 BUN (7 - 17 mg/dL) 11 Creatinine (0.5 - 1.0 mg/dL) 0.6 Estimated GFR (>60 ml/min) > 60 BUN/Creatinine Ratio (7 - 25 %) 18.3 Hematology CBC w Diff NO MAN DIFF REQ WBC (4.8 - 10.8 /CUMM) 8.4 RBC (4.20 - 5.40 /CUMM) 2.79 L Hgb (12.0 - 16.0 G/DL) 7.8 L Hct (37 - 47 %) 23.6 L MCV (81.0 - 99.0 FL) 84.7 MCH (27.0 - 31.0 PG) 27.9 MCHC (33.0 - 37.0 G/DL) 33.0 RDW (11.5 - 14.5 %) 19.0 H Plt Count (130 - 400 /CUMM) 356 MPV (7.4 - 10.4 FL) 9.0 Gran % (42.2 - 75.2 %) 88.0 H Lymphocytes % (20.5 - 51.1 %) 6.4 L Monocytes % (1.7 - 9.3 %) 5.2 Eosinophils % (0 - 5 %) 0.2 Basophils % (0.0 - 2.0 %) 0.2 Absolute Granulocytes (1.4 - 6.5 /CUMM) 7.4 H Absolute Lymphocytes (1.2 - 3.4 /CUMM) 0.5 L Absolute Monocytes (0.10 - 0.60 /CUMM) 0.4 Absolute Eosinophils (0.0 - 0.7 /CUMM) 0 Absolute Basophils (0.0 - 0.2 /CUMM) 0 Last 24 Hours of Caleb Results: No new cultures Assessment/Plan Impression: Fevers overnight, with her white blood cell count now normal, on Unasyn and Fluconazole, now 11 days status post sigmoid colectomy with end colostomy and takedown of a colovesical fistula (with left oophorectomy) for a perforated diverticulitis with a colovesical fistula, with multiple organisms, including Escherichia coli, Clostridium and yeast not Olimpia albicans (with the ID and sensitivities pending), isolated from the blood and OR cultures. The etiology of her fever is unclear, with no obvious source of infection. The recent CT scan did reveal a small collection deep to the incisional site not felt to be of significance by Surgery or amenable to drainage by IR. Suggestion: 1 Blood cultures 2 if respikes 2. Urine culture 3. Await ID and sensitivities of her Olimpia species 4. Continue Unasyn and Fluconazole
[2017-03-09 15:10] VITALS: BP 138/60
[2017-03-09 22:23] VITALS: BP 150/68
[2017-03-10 07:11] VITALS: BP 136/78
--- NOTE | 2017-03-10 07:25 | PN- Housestaff ---
Subjective Follow-up For: Perforated diverticulitis Colovesicular fistula Subjective: Seen and examined while seated comfortably in bed having breakfast. MARYELLEN drain has been removed by surgery. Overnight MAXIMUM TEMPERATURE of 100.1 noted. denies any chills, nausea, vomiting, abdominal pain, dysuria, shortness of breath or chest pain/palpitation. Review of Systems Constitutional: Reports: see HPI. Objective Last 24 Hrs of Vital Signs/I&O Vital Signs Date Time Temp Pulse Resp B/P B/P Pulse O2 O2 Flow FiO2 Mean Ox Delivery Rate 03/11 1600 96 Nasal 1.0L Cannula 03/11 1423 98.1 87 18 130/62 96 Nasal 2.0L Cannula 03/11 0800 Nasal 1.0L Cannula 03/11 0701 97.9 84 20 138/66 94 03/11 0000 Nasal 1.0L Cannula 03/10 2212 98.3 88 20 150/62 94 Nasal Cannula Intake & Output 03/11 1600 03/11 0800 02 0000 Intake Total 650 Output Total 2100 1100 800 Balance -1450 -1100 -800 Intake, Oral 650 Output, Stool 100 Output, Urine 2000 1100 800 Physical Exam General Appearance: Alert, Oriented X3, Cooperative Cardiovascular: Regular Rate, Normal S1 Lungs: Clear to Auscultation, Normal Air Movement Abdomen: formed stool present in colostomy bag. No acute bleeding around the area. Assessment/Plan Assessment: Ms Murphy is a 71-year-old woman with PMHx of arthritis, chronic b/l lower extremity edema presented to [place] ED on 02/22 with complaints of burning during urination and increased frequency and urgency, along with extreme weakness anorexia, and a 10 pound weight loss. She was initially being managed for sepsis of urological origin and a right leg DVT. She subsequently developed diarrhea, abdominal pain, hypotension and tachypnea requiring ICU admission. Chest X-ray revealed air under the diaphragm and coupled with the findings of her earlier CT abdomen showing colonic thickening. She had emergent exploratory laparotomy with general surgery and intraoperatively she was found to have perforated diverticulitis and colovesical fistula. She underwent a sigmoid colectomy with end colostomy and takedown of a colovesical fistula along with left oophorectomy. Postoperatively she had acute respiratory failure requiring mechanical ventilation as well as hypotension requiring pressors. She has made significant recovery since then and is off pressors and extubated. ------ Perforated colon from diverticulitis and colovesical fistula status post Hartmans procedure She had emergent exploratory laparotomy on 02/26 with general surgery and intraoperatively she was found to have perforated diverticulitis and colovesical fistula. She underwent asigmoid colectomy with end colostomy and takedown of a colovesical fistula along with left oophorectomy. Postoperatively she had acute respiratory failure requiring mechanical ventilation as well as hypotension requiring pressors. She has made significant recovery since then and came off pressors and extubated. Postoperatively she developed urine leakage from her intraabdominal MARYELLEN drain and had cystoscopy by urologist, Dr. Jarquin which showed that the MARYELLEN drain was adjacent to the open bladder region. As per urologist recommendations, the MARYELLEN drain was withdrawn slightly and the plan was to retain her iglesias catheter for at least 10 days until MARYELLEN drainage reduces as the bladder fistula heals. * s/p surgery postop day 12 * Initially on ceftriaxone and Flagyl for the first 4 days and then later switched to Unasyn on 02/26/2017 with blood cultures positive for Clostridium and Escherichia coli. * OR cultures positive for alpha strep, Bacteroides and yeast ( non albicans). Patient was started on fluconazole 400 mg IV on 03/03/2017 pending results. * Febrile o/n but no leukocytosis for 72 after a previus period of peristent leukocytiosis. Continue IV Unasyn day 12 and fluconozole day 8 * Hypokalemia and hypomagnesemia most likely secondary to the furosemide use. Will replenish appropriately * monitor vitals closely. * Monitor for fever, WBC trend * Currently on low fiber diet * Keep Iglesias in place per urology recommendation * Follow-up surgery recommendations * Follow-up ID recommendations DVT right leg U/S doppler confirmed nonocclusive thrombus in the right proximal femoral vein. * On Elliquis day 3 will switch from 10 mg twice a day to 5 mg twice a day after 7 days * An echocardiogram done showed normal EF with no sign of RV strain. Bilateral lower extremity swelling/hfpef Patient has worsening bilateral lower extremity swelling up to her thighs. Echocardiogram was done which showed normal ejection fraction and stage I diastolic dysfunction. * Continue IV Lasix 20 mg daily. Anemia Acute on chronic with blood loss as possible etiology. Currently stable. Continue to monitor H&H NSVT She had a one time episode of non-sustained ventricular tachycardia in the setting of hypokalemia while in the ICU. No Recurrent episodes. Nonspecific lucencies in the spine largest measuring 9 mm in the S1. Patient will require further evaluation with can be done as an outpatient basis. unstageble pressure injury Patient was found to have 5x 9 cm area of poorly blanching erythema to buttocks, coccyx with the left buttocks 0.8x0.5 cm intact skin and right buttock 0.3 x 0.4 cm unstageable pressure injury. * She might require Clinitron bed for her decubitus, recommended by wound care team * Cleanse buttocks wounds with normal saline followed by hydrocolloid dressing every 3 days * Apply moisture barrier to periwound skin. DVT prophylaxis: ALPS+ eliqus Code status is full code Problem List: 1. Colovesical fistula 2. Colitis Pain Ratin Pain Location: none Pain Goal: Remain pain free Pain Plan: per pathway Tomorrow's Labs & Rationales: CBC BEP
[2017-03-10 08:18] LABS: ABSOLUTE BASOPHIL COUNT 0 /CUMM (0.0-0.2); ABSOLUTE EOSINOPHIL COUNT 0 /CUMM (0.0-0.7); ABSOLUTE GRANULOCYTE CT 6.4 /CUMM (1.4-6.5); ABSOLUTE LYMPH COUNT 0.7 /CUMM (1.2-3.4); ABSOLUTE MONOCYTE COUNT 0.4 /CUMM (0.10-0.60); BASOPHIL % 0.2 % (0.0-2.0); EOSINOPHIL % 0.1 % (0-5); GRANULOCYTE % 84.4 % (42.2-75.2); HEMATOCRIT 23.6 % (37-47); MEAN CORPUSCULAR HGB 27.7 PG (27.0-31.0); MEAN CORPUSCULAR HGB CONC 32.7 G/DL (33.0-37.0); MEAN CORPUSCULAR VOLUME 84.8 FL (81.0-99.0); MEAN PLATELET VOLUME 8.7 FL (7.4-10.4); PLATELET COUNT 338 /CUMM (130-400); RBC DISTRIBUTION WIDTH 18.9 % (11.5-14.5); RED BLOOD CELL CT 2.78 /CUMM (4.20-5.40); WHITE BLOOD CELL COUNT 7.6 /CUMM (4.8-10.8)
--- NOTE | 2017-03-10 08:31 | PN- General Surgery ---
See Addendum Subjective Subjective: PT SITTING UP IN BED EATING BREAKFAST, TOLERATING LOW RESIDUE DIET. DENIES PAIN. WORKING WITH PHYSICAL THERAPY, WAS OOB TO CHAIR, WANTS TO START AMBULATING. DENIES FEVERS. ANN IN PLACE Objective Vital Signs and I&Os Vital Signs Date Time Temp Pulse Resp B/P B/P Pulse O2 O2 Flow FiO2 Mean Ox Delivery Rate 03/10 0711 97.9 90 18 136/78 93 Nasal 2.0L Cannula 03/10 0000 92 Nasal 1.0L Cannula 03/09 2223 99.0 88 20 150/68 92 Nasal 2.0L Cannula 03/09 1600 Nasal 1.0L Cannula 03/09 1510 98.0 92 18 138/60 96 Nasal 2.0L Cannula Intake & Output 03/10 1600 03/10 0800 03/10 0000 03/09 1600 03/09 0800 03/09 0000 Intake Total 360 580 620 500 150 Output Total 1100 1400 2200 2000 1103 Balance -740 -820 -1580 -1500 -953 Intake, IV 260 100 120 300 150 Intake, Oral 100 480 500 200 Number 2 Bowel Movements Output, 0 0 3 Drainage Output, Stool 200 100 100 200 400 Output, Urine 900 1300 2100 1800 700 Physical Exam: GEN- NAD RESP- DECREASED BREATH SOUNDS BILATERALLY CARDIO-RRR ABD- OBESE, +BS, NONTENDER. OSTOMY PINK AND VIABLE, STOOL AND GAS IN BAG. KATE IN RLQ, NOT ON SUCTION, BULB EMPTY Assessment/Plan Assessment/Plan 71 F POD 11 s/p hartmanns for perforated sigmoid/colovesical fistula/peritonitis , with resolved leukocytosis. NO MORE FEVERS OVER LAST 36HOURS Low residue diet Cont Abx per ID - unasyn/diflucan Eliquis for dvt Ann in place per uroology - [address] to self suction 1hr/day, MAY CONSIDER REMOVING kate IN NEXT 24-48 HOURS OOB with PT Med mgmt per primary team F/u labs Will d/w Jacobs Core Measures Venous Thromboembolism VTE Risk Factors Age>40 No Mechanical VTE Prophylaxis d/t N/A MechProphylax Ordered No VTE Pharm Prophylaxis d/t NA PharmProphylax ordered
--- NOTE | 2017-03-10 09:20 | Procedure ---
Minor Surgical Procedure Note Date of Procedure: 03/10/17 Procedure Note: pt in bed resting. after discussion with Dr. Jacobs, it was decided to remove the MARYELLEN drain as it has had minimal output over the last few days. drain was removed at bedside, pt tolerated the procedure well. drain site was covered with a clean dry dressing.
--- NOTE | 2017-03-10 11:16 | PN- Att Addend ---
Attending Addendum Attending Brief Note Patient comfortable in bed, has a slight dry cough. Surgery removed the drain. Pete catheter in place the urine looks clear. Vital signs are stable temp max 99 no major changes on physical. Patient took a couple of steps to the chair white count is within normal limits with her potassium is low at 2.9, magnesium is still low will replace the electrolytes once stable we will be able to go to rehabilitation Intake & Output 03/10 1600 03/10 04003/09 1600 03/09 04003/08 1600 03/08 0400 Intake Total 876 609 3964 150 2450 Output Total 1100 1400 4200 1103 2800 850 Balance -740 -820 -3080 -953 -350 -850 Intake, IV 260 100 420 150 380 Intake, Oral 100 530 903 4935 Number 2 Bowel Movements Output, 0 3 0 Drainage Output, Stool 200 100 300 400 0 Output, Urine 900 1300 3900 700 2800 850 Current Medications Sig/Jacobo Start time Last Medication Dose Route Stop Time Status Admin Acetaminophen 1,000 MG Q12P PRN 02/24 0845 AC 03/08 N/A 1 UNIT IV 2124 Ampicillin Sodium/ 3,000 MG Q6 03/06 1200 AC 03/10 Sulbactam Sodium IV 0500 Sodium Chloride 100 ML Apixaban 10 MG BID 03/06 1009 AC 03/10 PO 03/12 2201 1051 Fluconazole 400 MG DAILY 03/08 1000 AC 03/10 PO 1051 Furosemide 20 MG DAILY 03/05 2020 AC 03/10 IV 1052 Magnesium Sulfate 1 GM Q2H 03/10 0945 AC Dextrose/Water 100 ML IV 03/10 1344 Pantoprazole Sodium 40 MG DAILY 02/26 2038 AC 03/10 IV 1051 Potassium Chloride 40 MEQ ONCE ONE 03/10 1200 AC PO 03/10 1201 Potassium Chloride 40 MEQ ONCE ONE 03/10 0845 DC 03/10 PO 03/10 0846 1052 Laboratory Tests 03/10/17 0734: Anion Gap 8, Estimated GFR > 60, BUN/Creatinine Ratio 16.7, Phosphorus 3.5, Magnesium 1.4 L, CBC w Diff NO MAN DIFF REQ, RBC 2.78 L, MCV 84.8, MCH 27.7, MCHC 32.7 L, RDW 18.9 H, MPV 8.7, Gran % 84.4 H, Lymphocytes % 9.7 L, Monocytes % 5.6, Eosinophils % 0.1, Basophils % 0.2, Absolute Granulocytes 6.4, Absolute Lymphocytes 0.7 L, Absolute Monocytes 0.4, Absolute Eosinophils 0, Absolute Basophils 0 03/09/17 0736: Anion Gap 8, Estimated GFR > 60, BUN/Creatinine Ratio 18.3, CBC w Diff NO MAN DIFF REQ, RBC 2.79 L, MCV 84.7, MCH 27.9, MCHC 33.0, RDW 19.0 H, MPV 9.0, Gran % 88.0 H, Lymphocytes % 6.4 L, Monocytes % 5.2, Eosinophils % 0.2, Basophils % 0.2, Absolute Granulocytes 7.4 H, Absolute Lymphocytes 0.5 L, Absolute Monocytes 0.4, Absolute Eosinophils 0, Absolute Basophils 0 03/08/17 0715: Anion Gap 6, Estimated GFR > 60, BUN/Creatinine Ratio 20.0, CBC w Diff NO MAN DIFF REQ, RBC 2.69 L, MCV 85.2, MCH 27.8, MCHC 32.6 L, RDW 18.5 H, MPV 9.1, Gran % 88.5 H, Lymphocytes % 4.5 L, Monocytes % 6.6, Eosinophils % 0.2, Basophils % 0.2, Absolute Granulocytes 9.3 H, Absolute Lymphocytes 0.5 L, Absolute Monocytes 0.7 H, Absolute Eosinophils 0, Absolute Basophils 0 Microbiology 03/09 1500 URINE ROUT: Urine Culture - RES Microbiology 03/09 1500 URINE ROUT: Urine Culture - RES Vital Signs Date Time Temp Pulse Resp B/P B/P Pulse O2 O2 Flow FiO2 Mean Ox Delivery Rate 03/10 0711 97.9 90 18 136/78 93 Nasal 2.0L Cannula 03/10 0000 92 Nasal 1.0L Cannula 03/09 2223 99.0 88 20 150/68 92 Nasal 2.0L Cannula 03/09 1600 Nasal 1.0L Cannula 03/09 1510 98.0 92 18 138/60 96 Nasal 2.0L Cannula
--- NOTE | 2017-03-10 15:29 | PN- Infect Dx ---
Subjective Subjective: MAXIMUM TEMPERATURE 100.1. She feels well with no complaints Objective Last 24 Hrs of Vital Signs/I&O Vital Signs Date Time Temp Pulse Resp B/P B/P Pulse O2 O2 Flow FiO2 Mean Ox Delivery Rate 03/10 0800 95 Nasal 1.0L Cannula 03/10 0711 97.9 90 18 136/78 93 Nasal 2.0L Cannula 03/10 0000 92 Nasal 1.0L Cannula 03/09 2223 99.0 88 20 150/68 92 Nasal 2.0L Cannula 03/09 1600 Nasal 1.0L Cannula Intake & Output 03/10 1600 03/10 0800 03/10 0000 Intake Total 920 360 580 Output Total 1950 1100 1400 Balance -1030 -740 -820 Intake, IV 200 260 100 Intake, Oral 720 100 480 Number 2 Bowel Movements Output, Stool 200 200 100 Output, Urine 4841 583 7344 Physical Exam Other Physical Findings: She appears comfortable in no acute distress Lungs are clear Heart regular rhythm with no murmur Abdomen is soft, nontender with positive bowel sounds; colostomy with stool in the bag Extremities 2+ edema both lower extremities unchanged Pete catheter remains in place Results Last 24 Hours of Lab Results: Laboratory Tests 03/10 0734 Chemistry Sodium (137 - 145 mmol/L) 136 L Potassium (3.5 - 5.1 mmol/L) 2.9 *L Chloride (98 - 107 mmol/L) 100 Carbon Dioxide (22 - 30 mmol/L) 28 Anion Gap (5 - 16) 8 BUN (7 - 17 mg/dL) 10 Creatinine (0.5 - 1.0 mg/dL) 0.6 Estimated GFR (>60 ml/min) > 60 BUN/Creatinine Ratio (7 - 25 %) 16.7 Phosphorus (2.5 - 4.5 mg/dL) 3.5 Magnesium (1.6 - 2.3 mg/dL) 1.4 L Hematology CBC w Diff NO MAN DIFF REQ WBC (4.8 - 10.8 /CUMM) 7.6 RBC (4.20 - 5.40 /CUMM) 2.78 L Hgb (12.0 - 16.0 G/DL) 7.7 L Hct (37 - 47 %) 23.6 L MCV (81.0 - 99.0 FL) 84.8 MCH (27.0 - 31.0 PG) 27.7 MCHC (33.0 - 37.0 G/DL) 32.7 L RDW (11.5 - 14.5 %) 18.9 H Plt Count (130 - 400 /CUMM) 338 MPV (7.4 - 10.4 FL) 8.7 Gran % (42.2 - 75.2 %) 84.4 H Lymphocytes % (20.5 - 51.1 %) 9.7 L Monocytes % (1.7 - 9.3 %) 5.6 Eosinophils % (0 - 5 %) 0.1 Basophils % (0.0 - 2.0 %) 0.2 Absolute Granulocytes (1.4 - 6.5 /CUMM) 6.4 Absolute Lymphocytes (1.2 - 3.4 /CUMM) 0.7 L Absolute Monocytes (0.10 - 0.60 /CUMM) 0.4 Absolute Eosinophils (0.0 - 0.7 /CUMM) 0 Absolute Basophils (0.0 - 0.2 /CUMM) 0 Last 24 Hours of Caleb Results: Urine culture March 09 negative Assessment/Plan Impression: Stable, with just a low-grade fever reported yesterday and with her white blood cell count remaining normal, on Unasyn and Fluconazole, now 12 days status post sigmoid colectomy with end colostomy and takedown of a colovesical fistula (with left oophorectomy) for a perforated diverticulitis with a colovesical fistula, with multiple organisms, including Escherichia coli, Clostridium and yeast not Olimpia albicans (with the ID and sensitivities pending), isolated from the blood and OR cultures. Suggestion: 1. Follow-up final urine culture 2. Await ID and sensitivities of her Olimpia species 3. Discontinue Unasyn and begin Augmentin 875 mg po every 12 hours 4. Continue Fluconazole
[2017-03-10 15:52] VITALS: BP 140/68
[2017-03-10 22:12] VITALS: BP 150/62
[2017-03-11 07:01] VITALS: BP 138/66
--- NOTE | 2017-03-11 08:37 | PN- General Surgery ---
Subjective Subjective: Awake, alert No complaints this morning Tolerating diet, no pain or nausea with eating Objective Vital Signs and I&Os Vital Signs Date Time Temp Pulse Resp B/P B/P Pulse O2 O2 Flow FiO2 Mean Ox Delivery Rate 03/11 700 97.9 84 20 138/66 94 03/11 0000 Nasal 1.0L Cannula 03/10 2212 98.3 88 20 150/62 94 Nasal Cannula 03/10 1600 Nasal 1.0L Cannula 03/10 1552 97.7 109 20 140/68 95 Nasal Cannula Intake & Output 03/11 1600 03/11 0800 03/11 0000 03/10 1600 03/10 0803/10 0000 Intake Total 920 360 580 Output Total 0320 127 4135 1100 1400 Balance -1100 -800 -1030 -740 -820 Intake, IV 200 260 100 Intake, Oral 720 100 480 Number 2 Bowel Movements Output, Stool 200 200 100 Output, Urine 3514 462 1435 900 1300 Physical Exam: VSS, afebrile Abd: soft, nontender, nondistended, good bs throughout Ostomy looks good, pink, thick liquid stool in bag Wd: midline incision healing well, mt intact, non drainage, MARYELLEN site looks good Assessment/Plan Assessment/Plan 71yo female pod 12 s/p ex lap, Hartmanns for perf sigmoid/colovesical fistula advanced to lrd and tolerating well Will need mt removed around or after pod 14 - will follow up antibiotics per ID/medical team all other management per Medical team KEEP ANN UNTIL 03/19 Core Measures Venous Thromboembolism VTE Risk Factors Age>40 No Mechanical VTE Prophylaxis d/t N/A MechProphylax Ordered No VTE Pharm Prophylaxis d/t NA PharmProphylax ordered
--- NOTE | 2017-03-11 09:02 | PN- Att Addend ---
Attending Addendum Attending Brief Note Patient in bed comfortable eating breakfast Nilda is herself Vital signs are stable no fever noted no new changes on physical continue some physical therapy and is stable over the weekend probably would be able to go to rehabilitation at the beginning of the week. Intake & Output 03/11 1600 03/11 0400 03/10 1600 03/10 0400 03/09 1600 03/09 0400 Intake Total 2535 309 9360 150 Output Total 2754 639 4631 1400 4200 1103 Balance -1100 -800 -1770 -820 -3080 -953 Intake, IV 460 100 420 150 Intake, Oral 820 480 700 Number 2 Bowel Movements Output, 0 3 Drainage Output, Stool 400 100 300 400 Output, Urine 9858 995 9307 1300 3900 700 Current Medications Sig/Jacobo Start time Last Medication Dose Route Stop Time Status Admin Acetaminophen 1,000 MG Q12P PRN 02/24 0845 AC 03/08 N/A 1 UNIT IV 2124 Amoxicillin/ 875 MG Q12 03/11 1000 AC Clavulanate Potassium PO Ampicillin Sodium/ 3,000 MG Q6 03/10 1800 DC 03/10 Sulbactam Sodium IV 1842 Sodium Chloride 100 ML Ampicillin Sodium/ 3,000 MG Q6 03/06 1200 DC 03/10 Sulbactam Sodium IV 0500 Sodium Chloride 100 ML Apixaban 10 MG BID 03/06 1009 AC 03/10 PO 03/12 2201 2105 Fluconazole 400 MG DAILY 03/08 1000 AC 03/10 PO 1051 Furosemide 20 MG DAILY 03/05 2020 AC 03/10 IV 1052 Magnesium Sulfate 1 GM Q2H 03/10 0945 DC 03/10 Dextrose/Water 100 ML IV 03/10 1344 1622 Pantoprazole Sodium 40 MG DAILY 02/26 203 AC 03/10 IV 1051 Potassium Chloride 40 MEQ ONCE ONE 03/10 1200 DC 03/10 PO 03/10 1201 1241 Laboratory Tests 03/11/17 0715: Sodium Pending, Potassium Pending, Chloride Pending, Carbon Dioxide Pending, Anion Gap Pending, BUN Pending, Creatinine Pending, BUN/Creatinine Ratio Pending , Phosphorus Pending, Magnesium Pending, CBC w Diff Pending, WBC Pending, RBC Pending, Hgb Pending, Hct Pending, MCV Pending, MCH Pending, MCHC Pending, RDW Pending, Plt Count Pending, MPV Pending 03/10/17 0734: Anion Gap 8, Estimated GFR > 60, BUN/Creatinine Ratio 16.7, Phosphorus 3.5, Magnesium 1.4 L, CBC w Diff NO MAN DIFF REQ, RBC 2.78 L, MCV 84.8, MCH 27.7, MCHC 32.7 L, RDW 18.9 H, MPV 8.7, Gran % 84.4 H, Lymphocytes % 9.7 L, Monocytes % 5.6, Eosinophils % 0.1, Basophils % 0.2, Absolute Granulocytes 6.4, Absolute Lymphocytes 0.7 L, Absolute Monocytes 0.4, Absolute Eosinophils 0, Absolute Basophils 0 03/09/17 0736: Anion Gap 8, Estimated GFR > 60, BUN/Creatinine Ratio 18.3, CBC w Diff NO MAN DIFF REQ, RBC 2.79 L, MCV 84.7, MCH 27.9, MCHC 33.0, RDW 19.0 H, MPV 9.0, Gran % 88.0 H, Lymphocytes % 6.4 L, Monocytes % 5.2, Eosinophils % 0.2, Basophils % 0.2, Absolute Granulocytes 7.4 H, Absolute Lymphocytes 0.5 L, Absolute Monocytes 0.4, Absolute Eosinophils 0, Absolute Basophils 0 Microbiology 03/09 1500 URINE ROUT: Urine Culture - RES Microbiology 03/09 1500 URINE ROUT: Urine Culture - RES Vital Signs Date Time Temp Pulse Resp B/P B/P Pulse O2 O2 Flow FiO2 Mean Ox Delivery Rate 03/11 0701 97.9 84 20 138/66 94 03/11 0000 Nasal 1.0L Cannula 03/10 2212 98.3 88 20 150/62 94 Nasal Cannula 03/10 1600 Nasal 1.0L Cannula 03/10 1552 97.7 109 20 140/68 95 Nasal Cannula
[2017-03-11 09:13] LABS: ABSOLUTE BASOPHIL COUNT 0 /CUMM (0.0-0.2); ABSOLUTE EOSINOPHIL COUNT 0 /CUMM (0.0-0.7); ABSOLUTE GRANULOCYTE CT 5.3 /CUMM (1.4-6.5); ABSOLUTE LYMPH COUNT 0.7 /CUMM (1.2-3.4); ABSOLUTE MONOCYTE COUNT 0.4 /CUMM (0.10-0.60); BASOPHIL % 0.1 % (0.0-2.0); EOSINOPHIL % 0.1 % (0-5); GRANULOCYTE % 82.3 % (42.2-75.2); HEMATOCRIT 23.3 % (37-47); MEAN CORPUSCULAR HGB 27.6 PG (27.0-31.0); MEAN CORPUSCULAR HGB CONC 32.6 G/DL (33.0-37.0); MEAN CORPUSCULAR VOLUME 84.6 FL (81.0-99.0); MEAN PLATELET VOLUME 8.8 FL (7.4-10.4); PLATELET COUNT 337 /CUMM (130-400); RBC DISTRIBUTION WIDTH 19.3 % (11.5-14.5); RED BLOOD CELL CT 2.76 /CUMM (4.20-5.40); WHITE BLOOD CELL COUNT 6.5 /CUMM (4.8-10.8)
--- NOTE | 2017-03-11 11:54 | PN- General Surgery ---
Surgical Brief Attending Note Brief Attending Note: Recovering well. Son can be removed tomorrow. Pete out 03/19 but will need cystoscopy by Dr. Jarquin at time of removal.
[2017-03-11 14:23] VITALS: BP 130/62
[2017-03-11 23:16] VITALS: BP 126/64
[2017-03-12 06:48] VITALS: BP 126/64
--- NOTE | 2017-03-12 08:52 | PN- General Surgery ---
See Addendum Subjective Subjective: Patient states she feels well. Offers no complaints. States she requires assist of two to ambulate. Has mostly been OOB to chair. Denies any pain, fever, chills , nausea or vomiting. Objective Vital Signs and I&Os Vital Signs Date Time Temp Pulse Resp B/P B/P Pulse O2 O2 Flow FiO2 Mean Ox Delivery Rate 03/12 0648 97.4 78 18 126/64 93 03/12 0000 Nasal 1.0L Cannula 03/11 2316 97.9 83 20 126/64 96 Nasal Cannula 03/11 1600 96 Nasal 1.0L Cannula 03/11 1423 98.1 87 18 130/62 96 Nasal 2.0L Cannula Intake & Output 03/12 1600 03/12 0800 03/12 0000 03/11 1600 03/11 0800 03/11 0000 Intake Total 240 1010 650 Output Total 350 575 6499 1100 800 Balance -610 130 -1450 -1100 -800 Intake, IV 10 Intake, Oral 240 1000 650 Output, Stool 30 100 Output, Urine 611 865 2792 1100 800 Physical Exam: Gen - awake an alert in NAD Abd - soft, incision closed with mt, removed at bedside with pinpoint opening spontanously draining scant amount of serosanguineous drainage, redressed with gauze/abd and tape, no warmth, erythema or edema noted, ostomy appears healthy, pink with gas and thick liquid stool in bag - iglesias in place Assessment/Plan Assessment/Plan 71 F POD 13 s/p ex lap, Hartmanns for perf sigmoid/colovesical fistula who is recovering well from a surgical standpoint. Remains deconditioned Cont low residue diet Mt removed at bedside Cont dry daily dressing for midline incision Monitor drainage output Anticipate cystoscopy on 03/[address] Jarquin at time of iglesias removal KEEP IGLESIAS UNTIL 03/19 Abx per ID/medical team OOB, ambulate with PT All other management per medicine Will d/w Dr. Jacobs Core Measures Venous Thromboembolism VTE Risk Factors Age>40 No Mechanical VTE Prophylaxis d/t N/A MechProphylax Ordered No VTE Pharm Prophylaxis d/t NA PharmProphylax ordered
[2017-03-12 09:07] LABS: ABSOLUTE BASOPHIL COUNT 0 /CUMM (0.0-0.2); ABSOLUTE EOSINOPHIL COUNT 0 /CUMM (0.0-0.7); ABSOLUTE GRANULOCYTE CT 5.4 /CUMM (1.4-6.5); ABSOLUTE LYMPH COUNT 0.7 /CUMM (1.2-3.4); ABSOLUTE MONOCYTE COUNT 0.4 /CUMM (0.10-0.60); BASOPHIL % 0.3 % (0.0-2.0); EOSINOPHIL % 0.1 % (0-5); GRANULOCYTE % 83.5 % (42.2-75.2); HEMATOCRIT 26.6 % (37-47); MEAN CORPUSCULAR HGB 27.5 PG (27.0-31.0); MEAN CORPUSCULAR HGB CONC 32.6 G/DL (33.0-37.0); MEAN CORPUSCULAR VOLUME 84.6 FL (81.0-99.0); MEAN PLATELET VOLUME 8.4 FL (7.4-10.4); PLATELET COUNT 332 /CUMM (130-400); RBC DISTRIBUTION WIDTH 18.6 % (11.5-14.5); RED BLOOD CELL CT 3.15 /CUMM (4.20-5.40); WHITE BLOOD CELL COUNT 6.5 /CUMM (4.8-10.8)
--- NOTE | 2017-03-12 14:11 | PN- Att Addend ---
Attending Addendum Attending Brief Note Patient looking and feeling better trying to nourish herself with her vital signs are stable she has no fever. No major changes on physical. Her white count is 6500 hemoglobin 8.7 hematocrit 26.6, potassium is now 3.7 improved and her urine culture from 2 days ago shows no growth will reevaluate in the morning patient now on by mouth antibiotics. Maybe she patient will be ready to go for short-term rehabilitation if okay with all the consultants Intake & Output 03/12 1600 03/12 1600 03/11 04003/10 1600 03/10 040 Intake Total 240 5299 818 1803 580 Output Total 257 306 2115 800 3050 1400 Balance -610 130 -2550 -800 -1770 -820 Intake, IV 10 460 100 Intake, Oral 240 1000 650 820 480 Number 2 Bowel Movements Output, Stool 30 100 400 100 Output, Urine 766 596 2736 800 2650 1300 Current Medications Sig/Jacobo Start time Last Medication Dose Route Stop Time Status Admin Acetaminophen 1,000 MG Q12P PRN 02/24 0845 AC 03/08 N/A 1 UNIT IV 2124 Amoxicillin/ 875 MG Q12 03/11 1000 AC 03/12 Clavulanate Potassium PO 1003 Apixaban 10 MG BID 03/06 1009 AC 03/12 PO 03/12 220 1003 Fluconazole 400 MG DAILY 03/08 1000 DC 03/11 PO 1030 Furosemide 20 MG DAILY 03/05 2019 AC 03/12 IV 1003 Pantoprazole Sodium 40 MG DAILY 02/26 2038 AC 03/12 IV 1003 Laboratory Tests 03/12/17 0805: Anion Gap 7, Estimated GFR > 60, BUN/Creatinine Ratio 17.1, CBC w Diff NO MAN DIFF REQ, RBC 3.15 L, MCV 84.6, MCH 27.5, MCHC 32.6 L, RDW 18.6 H, MPV 8.4, Gran % 83.5 H, Lymphocytes % 10.1 L, Monocytes % 6.0, Eosinophils % 0.1, Basophils % 0.3, Absolute Granulocytes 5.4, Absolute Lymphocytes 0.7 L, Absolute Monocytes 0.4, Absolute Eosinophils 0, Absolute Basophils 0 03/11/17 0715: Anion Gap 8, Estimated GFR > 60, BUN/Creatinine Ratio 14.3, Phosphorus 3.4, Magnesium 1.7, CBC w Diff NO MAN DIFF REQ, RBC 2.76 L, MCV 84.6, MCH 27.6, MCHC 32.6 L, RDW 19.3 H, MPV 8.8, Gran % 82.3 H, Lymphocytes % 11.5 L, Monocytes % 6.0, Eosinophils % 0.1, Basophils % 0.1, Absolute Granulocytes 5.3, Absolute Lymphocytes 0.7 L, Absolute Monocytes 0.4, Absolute Eosinophils 0, Absolute Basophils 0 03/10/17 0734: Anion Gap 8, Estimated GFR > 60, BUN/Creatinine Ratio 16.7, Phosphorus 3.5, Magnesium 1.4 L, CBC w Diff NO MAN DIFF REQ, RBC 2.78 L, MCV 84.8, MCH 27.7, MCHC 32.7 L, RDW 18.9 H, MPV 8.7, Gran % 84.4 H, Lymphocytes % 9.7 L, Monocytes % 5.6, Eosinophils % 0.1, Basophils % 0.2, Absolute Granulocytes 6.4, Absolute Lymphocytes 0.7 L, Absolute Monocytes 0.4, Absolute Eosinophils 0, Absolute Basophils 0 Microbiology 03/09 1500 URINE ROUT: Urine Culture - COMP Microbiology 03/09 1500 URINE ROUT: Urine Culture - COMP Vital Signs Date Time Temp Pulse Resp B/P B/P Pulse O2 O2 Flow FiO2 Mean Ox Delivery Rate 03/12 0800 Nasal 1.0L Cannula 03/12 0648 97.4 78 18 126/64 93 03/12 0000 Nasal 1.0L Cannula 03/11 2316 97.9 83 20 126/64 96 Nasal Cannula 03/11 1600 96 Nasal 1.0L Cannula 03/11 1423 98.1 87 18 130/62 96 Nasal 2.0L Cannula
[2017-03-12 14:50] VITALS: BP 154/60
[2017-03-12 22:23] VITALS: BP 154/64
[2017-03-13 05:52] VITALS: BP 138/72
--- NOTE | 2017-03-13 07:26 | PN- Housestaff ---
Subjective Follow-up For: complicated diverticulitis with perforation colovesicular fistula Subjective: Seen and examined at bedside. Afebrile throughout the whole weekend. Does not endorse any fever or chills. Acute overnight events reported by nursing staff. Review of Systems Constitutional: Reports: no symptoms. Objective Last 24 Hrs of Vital Signs/I&O Vital Signs Date Time Temp Pulse Resp B/P B/P Pulse O2 O2 Flow FiO2 Mean Ox Delivery Rate 03/13 1324 Nasal 1.0L Cannula 03/13 1247 Nasal 1.0L Cannula 03/13 0800 94 Nasal 1.0L Cannula 03/13 0552 98.2 80 20 138/72 94 Nasal 2.0L Cannula 03/13 0000 Nasal 0.5L Cannula 03/12 2223 98.8 87 20 154/64 94 Nasal 1.0L Cannula 03/12 1600 98 Nasal 0.5L Cannula 03/12 1450 99.8 91 18 154/60 95 Nasal 2.0L Cannula Intake & Output 03/13 1600 03/13 0800 03/13 0000 Intake Total 240 710 Output Total 530 920 Balance -290 -210 Intake, IV 10 Intake, Oral 240 700 Output, Stool 20 Output, Urine 530 900 Physical Exam General Appearance: Alert, Oriented X3, Cooperative Skin: coccygeal ulcer, non stageable, present on admission Skin Temp/Moisture Exam: Warm/Dry Lungs: Clear to Auscultation, Normal Air Movement Abdomen: colostomy bag intact with preformed stool. Stoma area intact with no obvious bleed or purulent discharge Current Medications: Current Medications Sig/Jacobo Start time Last Medication Dose Route Stop Time Status Admin Acetaminophen 1,000 MG Q12P PRN 02/24 0845 03/08 N/A 1 UNIT IV 2124 Amoxicillin/ 875 MG Q12 03/11 1000 DC 03/13 Clavulanate Potassium PO 0914 Furosemide 20 MG DAILY 03/05 2019 AC 03/13 IV 0914 Magnesium Oxide 400 MG BID 03/13 120 AC 03/13 PO 210 Pantoprazole Sodium 40 MG DAILY 02/26 2038 AC 03/13 IV 0914 Potassium Chloride 40 MEQ ONCE ONE 03/13 1215 DC 03/13 PO 03/13 1216 1352 Last 24 Hrs of Lab/Caleb Results Last 24 Hrs of Labs/Mics: Laboratory Tests 03/13/17 0725: Anion Gap 8, Estimated GFR > 60, BUN/Creatinine Ratio 16.3, Phosphorus 3.4, Magnesium 1.6, CBC w Diff NO MAN DIFF REQ, RBC 2.87 L, MCV 84.7, MCH 27.5, MCHC 32.4 L, RDW 18.7 H, MPV 8.5, Gran % 81.8 H, Lymphocytes % 11.1 L, Monocytes % 6.8, Eosinophils % 0.1, Basophils % 0.2, Absolute Granulocytes 5.4, Absolute Lymphocytes 0.7 L, Absolute Monocytes 0.4, Absolute Eosinophils 0, Absolute Basophils 0 Assessment/Plan Assessment: Ms Murphy is a 71-year-old woman with PMHx of arthritis, chronic b/l lower extremity edema presented to [place] ED on 02/22 with complaints of burning during urination and increased frequency and urgency, along with extreme weakness anorexia, and a 10 pound weight loss. She was initially being managed for sepsis of urological origin and a right leg DVT. She subsequently developed diarrhea, abdominal pain, hypotension and tachypnea requiring ICU admission. Chest X-ray revealed air under the diaphragm and coupled with the findings of her earlier CT abdomen showing colonic thickening. She had emergent exploratory laparotomy with general surgery and intraoperatively she was found to have perforated diverticulitis and colovesical fistula. She underwent a sigmoid colectomy with end colostomy and takedown of a colovesical fistula along with left oophorectomy. Postoperatively she had acute respiratory failure requiring mechanical ventilation as well as hypotension requiring pressors. She has made significant recovery since then and is off pressors and extubated. Her Leukocytosis and fevers have resolved. ------ Perforated colon from diverticulitis and colovesical fistula status post Hartmans procedure She had emergent exploratory laparotomy on 02/26 with general surgery and intraoperatively she was found to have perforated diverticulitis and colovesical fistula. She underwent asigmoid colectomy with end colostomy and takedown of a colovesical fistula along with left oophorectomy. Postoperatively she had acute respiratory failure requiring mechanical ventilation as well as hypotension requiring pressors. She has made significant recovery since then and came off pressors and extubated. Postoperatively she developed urine leakage from her intraabdominal MARYELLEN drain and had cystoscopy by urologist, Dr. Jarquin which showed that the MARYELLEN drain was adjacent to the open bladder region. As per urologist recommendations, the MARYELLEN drain was withdrawn slightly and the plan was to retain her iglesias catheter for at least 10 days until MARYELLEN drainage reduces as the bladder fistula heals. * s/p surgery postop day 115 * Remained afebrile for more than 5 days with last reported fever and generalized , completed 2 weeks treatment with antifungal and antibiotic. Cytosis has resolved. * Hypokalemia and hypomagnesemia most likely secondary to the furosemide use. Will replenish appropriately * monitor vitals closely. * Monitor for fever, WBC trend * Currently on low fiber diet * Keep Iglesias in place per urology recommendation * Follow-up surgery recommendations * Follow-up ID recommendations DVT right leg U/S doppler confirmed nonocclusive thrombus in the right proximal femoral vein. * On Elliquis day 3 will switch from 10 mg twice a day to 5 mg twice a day after 7 days * An echocardiogram done showed normal EF with no sign of RV strain. Bilateral lower extremity swelling/hfpef Patient has worsening bilateral lower extremity swelling up to her thighs. Echocardiogram was done which showed normal ejection fraction and stage I diastolic dysfunction. * Continue IV Lasix 20 mg daily. Nonspecific lucencies in the spine largest measuring 9 mm in the S1. Patient will require further evaluation with can be done as an outpatient basis. unstageble pressure injury Patient was found to have 5x 9 cm area of poorly blanching erythema to buttocks, coccyx with the left buttocks 0.8x0.5 cm intact skin and right buttock 0.3 x 0.4 cm unstageable pressure injury. * Continue Clinitron bed for her decubitus, recommended by wound care team * Cleanse buttocks wounds with normal saline followed by hydrocolloid dressing every 3 days * Apply moisture barrier to periwound skin. Discharge disposition: Medically stable for discharge tomorrow. DVT prophylaxis: ALPS+ eliqus Code status is full code Problem List: 1. Colovesical fistula Pain Ratin Pain Location: none Pain Goal: Remain pain free Pain Plan: per pathway Tomorrow's Labs & Rationales: cbc bep
[2017-03-13 10:32] LABS: ABSOLUTE BASOPHIL COUNT 0 /CUMM (0.0-0.2); ABSOLUTE EOSINOPHIL COUNT 0 /CUMM (0.0-0.7); ABSOLUTE GRANULOCYTE CT 5.4 /CUMM (1.4-6.5); ABSOLUTE LYMPH COUNT 0.7 /CUMM (1.2-3.4); ABSOLUTE MONOCYTE COUNT 0.4 /CUMM (0.10-0.60); BASOPHIL % 0.2 % (0.0-2.0); EOSINOPHIL % 0.1 % (0-5); GRANULOCYTE % 81.8 % (42.2-75.2); HEMATOCRIT 24.4 % (37-47); MEAN CORPUSCULAR HGB 27.5 PG (27.0-31.0); MEAN CORPUSCULAR HGB CONC 32.4 G/DL (33.0-37.0); MEAN CORPUSCULAR VOLUME 84.7 FL (81.0-99.0); MEAN PLATELET VOLUME 8.5 FL (7.4-10.4); PLATELET COUNT 294 /CUMM (130-400); RBC DISTRIBUTION WIDTH 18.7 % (11.5-14.5); RED BLOOD CELL CT 2.87 /CUMM (4.20-5.40); WHITE BLOOD CELL COUNT 6.6 /CUMM (4.8-10.8)
--- NOTE | 2017-03-13 10:50 | PN- Att Addend ---
Attending Addendum Attending Brief Note No new complaints occasional cough. Her oxygen is still on. We'll try and taper off her oxygen. Her vital signs are stable no fever. No changes on physical therapy potassium today was treated 0.4 would continue to replace no white count today. Will check with infectious diseases see if we can start disposition plans in that the patient go to short-term rehabilitation. Intake & Output 03/13 04003/12 04003/11 1600 03/11 0400 Intake Total 240 649 289 4046 650 Output Total 584 530 1288 880 3200 800 Balance -290 -210 -2460 130 -2550 -800 Intake, IV 10 10 Intake, Oral 240 732 849 8728 650 Output, Stool 20 100 30 100 Output, Urine 696 690 8371 850 3100 800 Current Medications Sig/Jacobo Start time Last Medication Dose Route Stop Time Status Admin Acetaminophen 1,000 MG Q12P PRN 02/24 0845 AC 03/08 N/A 1 UNIT IV 2124 Amoxicillin/ 875 MG Q12 03/11 1000 AC 03/13 Clavulanate Potassium PO 0914 Apixaban 10 MG BID 03/06 1009 DC 03/12 PO 03/12 2201 2111 Furosemide 20 MG DAILY 03/05 2019 AC 03/13 IV 0914 Pantoprazole Sodium 40 MG DAILY 02/26 2038 AC 03/13 IV 0914 Laboratory Tests 03/13/17 0725: Anion Gap 8, Estimated GFR > 60, BUN/Creatinine Ratio 16.3, CBC w Diff Pending, WBC Pending, RBC Pending, Hgb Pending, Hct Pending, MCV Pending, MCH Pending, MCHC Pending, RDW Pending, Plt Count Pending, MPV Pending 03/12/17 0805: Anion Gap 7, Estimated GFR > 60, BUN/Creatinine Ratio 17.1, CBC w Diff NO MAN DIFF REQ, RBC 3.15 L, MCV 84.6, MCH 27.5, MCHC 32.6 L, RDW 18.6 H, MPV 8.4, Gran % 83.5 H, Lymphocytes % 10.1 L, Monocytes % 6.0, Eosinophils % 0.1, Basophils % 0.3, Absolute Granulocytes 5.4, Absolute Lymphocytes 0.7 L, Absolute Monocytes 0.4, Absolute Eosinophils 0, Absolute Basophils 0 03/11/17 0715: Anion Gap 8, Estimated GFR > 60, BUN/Creatinine Ratio 14.3, Phosphorus 3.4, Magnesium 1.7, CBC w Diff NO MAN DIFF REQ, RBC 2.76 L, MCV 84.6, MCH 27.6, MCHC 32.6 L, RDW 19.3 H, MPV 8.8, Gran % 82.3 H, Lymphocytes % 11.5 L, Monocytes % 6.0, Eosinophils % 0.1, Basophils % 0.1, Absolute Granulocytes 5.3, Absolute Lymphocytes 0.7 L, Absolute Monocytes 0.4, Absolute Eosinophils 0, Absolute Basophils 0 Vital Signs Date Time Temp Pulse Resp B/P B/P Pulse O2 O2 Flow FiO2 Mean Ox Delivery Rate 03/13 0800 94 Nasal 1.0L Cannula 03/13 0552 98.2 80 20 138/72 94 Nasal 2.0L Cannula 03/13 0000 Nasal 0.5L Cannula 03/12 2223 98.8 87 20 154/64 94 Nasal 1.0L Cannula 03/12 1600 98 Nasal 0.5L Cannula 03/12 1450 99.8 91 18 154/60 95 Nasal 2.0L Cannula
[2017-03-13 13:44] VITALS: BP 152/64
--- NOTE | 2017-03-13 14:53 | PN- Infect Dx ---
Subjective Subjective: Afebrile without complaints Objective Last 24 Hrs of Vital Signs/I&O Vital Signs Date Time Temp Pulse Resp B/P B/P Pulse O2 O2 Flow FiO2 Mean Ox Delivery Rate 03/13 1344 97.5 63 20 152/64 94 Nasal 1.0L Cannula 03/13 1324 Nasal 1.0L Cannula 03/13 1247 Nasal 1.0L Cannula 03/13 0800 94 Nasal 1.0L Cannula 03/13 0552 98.2 80 20 138/72 94 Nasal 2.0L Cannula 03/13 0000 Nasal 0.5L Cannula 03/12 2223 98.8 87 20 154/64 94 Nasal 1.0L Cannula 03/12 1600 98 Nasal 0.5L Cannula Intake & Output 03/13 1600 03/13 0800 03/13 0000 Intake Total 720 240 710 Output Total 2200 530 920 Balance -1480 -290 -210 Intake, IV 10 Intake, Oral 720 240 700 Output, Stool 200 20 Output, Urine 2000 530 900 Physical Exam Other Physical Findings: She appears well in no acute distress Abdomen is soft, nontender with positive bowel sounds; colostomy with stool Extremities decreased edema of both lower extremities Pete catheter remains in place Results Last 24 Hours of Lab Results: Laboratory Tests 03/13 07 Chemistry Sodium (137 - 145 mmol/L) 133 L Potassium (3.5 - 5.1 mmol/L) 3.4 L Chloride (98 - 107 mmol/L) 97 L Carbon Dioxide (22 - 30 mmol/L) 28 Anion Gap (5 - 16) 8 BUN (7 - 17 mg/dL) 13 Creatinine (0.5 - 1.0 mg/dL) 0.8 Estimated GFR (>60 ml/min) > 60 BUN/Creatinine Ratio (7 - 25 %) 16.3 Phosphorus (2.5 - 4.5 mg/dL) Pending Magnesium (1.6 - 2.3 mg/dL) Pending Hematology CBC w Diff NO MAN DIFF REQ WBC (4.8 - 10.8 /CUMM) 6.6 RBC (4.20 - 5.40 /CUMM) 2.87 L Hgb (12.0 - 16.0 G/DL) 7.9 L Hct (37 - 47 %) 24.4 L MCV (81.0 - 99.0 FL) 84.7 MCH (27.0 - 31.0 PG) 27.5 MCHC (33.0 - 37.0 G/DL) 32.4 L RDW (11.5 - 14.5 %) 18.7 H Plt Count (130 - 400 /CUMM) 294 MPV (7.4 - 10.4 FL) 8.5 Gran % (42.2 - 75.2 %) 81.8 H Lymphocytes % (20.5 - 51.1 %) 11.1 L Monocytes % (1.7 - 9.3 %) 6.8 Eosinophils % (0 - 5 %) 0.1 Basophils % (0.0 - 2.0 %) 0.2 Absolute Granulocytes (1.4 - 6.5 /CUMM) 5.4 Absolute Lymphocytes (1.2 - 3.4 /CUMM) 0.7 L Absolute Monocytes (0.10 - 0.60 /CUMM) 0.4 Absolute Eosinophils (0.0 - 0.7 /CUMM) 0 Absolute Basophils (0.0 - 0.2 /CUMM) 0 Last 24 Hours of Caleb Results: Urine culture March 09 negative Assessment/Plan Impression: Stable, with temperatures and white blood cell count remaining normal, on Augmentin and Fluconazole, now 15 days status post sigmoid colectomy with end colostomy and takedown of a colovesical fistula (with left oophorectomy) for a perforated diverticulitis with a colovesical fistula, with multiple organisms, including Escherichia coli, Clostridium and yeast not Olimpia albicans isolated from the blood and OR cultures. Unfortunately the identification and sensitivities of the yeast isolate is still pending but, given her clinical improvement, it is of unclear significance at this time. Suggestion: 1. Discontinue Augmentin and Fluconazole and follow off antibiotics
[2017-03-13 21:55] VITALS: BP 130/62
[2017-03-14 06:43] VITALS: BP 144/73
--- NOTE | 2017-03-14 08:09 | PN- Housestaff ---
Subjective Subjective: Afebrile o/n. Does not endorse any complaints. No acute o/n event. Review of Systems Constitutional: Reports: no symptoms. Objective Physical Exam General Appearance: Alert, Oriented X3, Cooperative Other Physical Findings: Skin: coccygeal ulcer, non stageable, present on admission Skin Temp/Moisture Exam: Warm/Dry Lungs: Clear to Auscultation, Normal Air Movement Abdomen: colostomy bag intact with preformed stool. Stoma area intact with no obvious bleed or purulent discharge Last 24 Hrs of Lab/Caleb Results Last 24 Hrs of Labs/Mics: Vital Signs Date Time Temp Pulse Resp B/P B/P Pulse O2 O2 Flow FiO2 Mean Ox Delivery Rate 03/14 0643 98.2 91 20 144/73 92 Nasal 1.0L Cannula 03/14 0000 Nasal 1.0L Cannula 03/13 2155 98.7 94 20 130/62 93 Nasal 2.0L Cannula Intake & Output 03/14 1600 03/14 0800 03/14 0000 Intake Total 480 Output Total 900 650 Balance -420 -650 Intake, Oral 480 Output, Stool 100 Output, Urine 800 650 Assessment/Plan Assessment: Ms Murphy is a 71-year-old woman with PMHx of arthritis, chronic b/l lower extremity edema presented to [place] ED on 02/22 with complaints of burning during urination and increased frequency and urgency, along with extreme weakness anorexia, and a 10 pound weight loss. She was initially being managed for sepsis of urological origin and a right leg DVT. She subsequently developed diarrhea, abdominal pain, hypotension and tachypnea requiring ICU admission. Chest X-ray revealed air under the diaphragm and coupled with the findings of her earlier CT abdomen showing colonic thickening. She had emergent exploratory laparotomy with general surgery and intraoperatively she was found to have perforated diverticulitis and colovesical fistula. She underwent a sigmoid colectomy with end colostomy and takedown of a colovesical fistula along with left oophorectomy. Postoperatively she had acute respiratory failure requiring mechanical ventilation as well as hypotension requiring pressors. She has made significant recovery since then and is off pressors and extubated. Her Leukocytosis and fevers have resolved. ------ Perforated colon from diverticulitis and colovesical fistula status post Hartmans procedure She had emergent exploratory laparotomy on 02/26 with general surgery and intraoperatively she was found to have perforated diverticulitis and colovesical fistula. She underwent asigmoid colectomy with end colostomy and takedown of a colovesical fistula along with left oophorectomy. Postoperatively she had acute respiratory failure requiring mechanical ventilation as well as hypotension requiring pressors. She has made significant recovery since then and came off pressors and extubated. Postoperatively she developed urine leakage from her intraabdominal MARYELLEN drain and had cystoscopy by urologist, Dr. Jarquin which showed that the MARYELLEN drain was adjacent to the open bladder region. As per urologist recommendations, the MARYELLEN drain was withdrawn slightly and the plan was to retain her iglesias catheter for at least 10 days until MARYELLEN drainage reduces as the bladder fistula heals. * s/p surgery postop day 16. Stable for discharge * Remained afebrile for more than 5 days with last reported fever and generalized 31st, completed 2 weeks treatment with antifungal and antibiotic. Cytosis has resolved. * Hypokalemia and hypomagnesemia most likely secondary to the furosemide use. Will replenish appropriately * monitor vitals closely. * Monitor for fever, WBC trend * Currently on low fiber diet * Keep Iglesias in place per urology recommendation * Follow-up surgery recommendations * Follow-up ID recommendations DVT right leg U/S doppler confirmed nonocclusive thrombus in the right proximal femoral vein. * On Elliquis day 3 will switch from 10 mg twice a day to 5 mg twice a day after 7 days * An echocardiogram done showed normal EF with no sign of RV strain. Bilateral lower extremity swelling/hfpef Patient has worsening bilateral lower extremity swelling up to her thighs. Echocardiogram was done which showed normal ejection fraction and stage I diastolic dysfunction. * Continue IV Lasix 20 mg daily. Nonspecific lucencies in the spine largest measuring 9 mm in the S1. Patient will require further evaluation with can be done as an outpatient basis. unstageble pressure injury Patient was found to have 5x 9 cm area of poorly blanching erythema to buttocks, coccyx with the left buttocks 0.8x0.5 cm intact skin and right buttock 0.3 x 0.4 cm unstageable pressure injury. * Continue Clinitron bed for her decubitus, recommended by wound care team * Cleanse buttocks wounds with normal saline followed by hydrocolloid dressing every 3 days * Apply moisture barrier to periwound skin. Discharge disposition: Medically stable for discharge tomorrow. DVT prophylaxis: ALPS+ eliqus Code status is full code Problem List: 1. Colitis 2. Colovesical fistula
--- NOTE | 2017-03-14 10:16 | PN- Att Addend ---
Attending Addendum Attending Brief Note In good spirits, physical therapy got her out of bed the balance getting a little bit better still very weak vital signs are stable she has no fever. No major changes on physical Pete catheter still in place until the 14 of this month patient has oxygen on, will try to taper down her potassium is 3.4 continue to replace her hypokalemia, her white count is within normal limits. If short-term rehabilitation bed is available today in the special mattresses there, then the patient can go. I will follow the patient at home see W 10 and CMR and discharge summary. Intake & Output 03/14 1600 03/14 04003/13 1600 03/13 0400 03/12 0400 Intake Total 480 960 136 813 3793 Output Total 177 623 2437 920 3350 880 Balance -420 -650 -1770 -210 -2460 130 Intake, IV 10 10 Intake, Oral 480 960 465 446 1709 Output, Stool 100 200 20 100 30 Output, Urine 358 101 0750 900 3250 850 Current Medications Sig/Jacobo Start time Last Medication Dose Route Stop Time Status Admin Acetaminophen 1,000 MG Q12P PRN 02/24 0845 AC 03/08 N/A 1 UNIT IV 2124 Amoxicillin/ 875 MG Q12 03/11 1000 DC 03/13 Clavulanate Potassium PO 0914 Furosemide 20 MG DAILY 03/05 2020 AC 03/13 IV 0914 Magnesium Oxide 400 MG BID 03/13 1207 AC 03/13 PO 2105 Pantoprazole Sodium 40 MG DAILY 02/26 2038 AC 03/13 IV 0914 Potassium Chloride 40 MEQ ONCE ONE 03/14 1015 UNVr PO 03/14 1016 Potassium Chloride 40 MEQ ONCE ONE 03/13 1215 DC / PO 03/13 1216 1352 Laboratory Tests 03/13/17 0725: Anion Gap 8, Estimated GFR > 60, BUN/Creatinine Ratio 16.3, Phosphorus 3.4, Magnesium 1.6, CBC w Diff NO MAN DIFF REQ, RBC 2.87 L, MCV 84.7, MCH 27.5, MCHC 32.4 L, RDW 18.7 H, MPV 8.5, Gran % 81.8 H, Lymphocytes % 11.1 L, Monocytes % 6.8, Eosinophils % 0.1, Basophils % 0.2, Absolute Granulocytes 5.4, Absolute Lymphocytes 0.7 L, Absolute Monocytes 0.4, Absolute Eosinophils 0, Absolute Basophils 0 03/12/17 0805: Anion Gap 7, Estimated GFR > 60, BUN/Creatinine Ratio 17.1, CBC w Diff NO MAN DIFF REQ, RBC 3.15 L, MCV 84.6, MCH 27.5, MCHC 32.6 L, RDW 18.6 H, MPV 8.4, Gran % 83.5 H, Lymphocytes % 10.1 L, Monocytes % 6.0, Eosinophils % 0.1, Basophils % 0.3, Absolute Granulocytes 5.4, Absolute Lymphocytes 0.7 L, Absolute Monocytes 0.4, Absolute Eosinophils 0, Absolute Basophils 0 Vital Signs Date Time Temp Pulse Resp B/P B/P Pulse O2 O2 Flow FiO2 Mean Ox Delivery Rate 03/14 0643 98.2 91 20 144/73 92 Nasal 1.0L Cannula 03/14 0000 Nasal 1.0L Cannula 03/13 2155 98.7 94 20 130/62 93 Nasal 2.0L Cannula 03/13 1344 97.5 63 20 152/64 94 Nasal 1.0L Cannula 03/13 1324 Nasal 1.0L Cannula 03/13 1247 Nasal 1.0L Cannula
[2017-03-14] MEDS ORDERED: PANTOPRAZOLE SO20 M1 PO (14:23)
[2017-03-14] MEDS ORDERED: FUROSEMIDE40 M1 PO (14:23)
[2017-03-14] MEDS ORDERED: ELIQUIS5 M1 PO (14:24)
[2017-03-14] MEDS ORDERED: FUROSEMIDE20 M1 PO (14:26)
[2017-03-14] MEDS ORDERED: POTASSIUM CHLO20 ME2 PO (14:28)
[2017-03-14 14:51] VITALS: BP 144/66
[2017-03-14 15:19] VITALS: BP 144/66
== END 2017-03-14 16:00 | DRG 853 ==
LOC: ERH 16:15 → ERHI 19:22 → 2NB 19:22 → CRI 19:22 → ENRESERV 20:47 → CANRESERV 20:47 → ENTRNSPT 21:20 → EDTRNSPTSTS 21:26 → EDBEDREQ 21:31 → EDTRNSPT 21:45 → CMPTRNSPT 02-23 07:08 → ENRESERV 02-23 16:49 → ENTRNSPT 02-23 17:59 → EDTRNSPTSTS 02-23 18:00 → 2NB 02-23 18:24 → CMPTRNSPT 02-23 18:44 → 2NB 02-23 20:16 → CRI 02-26 13:22 → 2NB 03-04 14:22
PROVIDERS: Emergency Medicine; Hospitalist; Internal Medicine; Internal Medicine Adolescent Medicine; Internal Medicine Endocrinology, Diabetes & Metabolism; Internal Medicine Hematology & Oncology; Internal Medicine Infectious Disease; Student in an Organized Health Care Education/Training Program
PROC: 0DTE0ZZ Resection of Large Intestine, Open Approach (ICD-10-PCS; principal; 2017-02-26)
PROC: 0D1N0Z4 Bypass Sigmoid Colon to Cutaneous, Open Approach (ICD-10-PCS; 2017-02-26)
PROC: 0UT60ZZ Resection of Left Fallopian Tube, Open Approach (ICD-10-PCS; 2017-02-26)
PROC: 0HB7XZX Excision of Abdomen Skin, External Approach, Diagnostic (ICD-10-PCS; 2017-02-26)
PROC: 0BH17EZ Insertion of Endotracheal Airway into Trachea, Via Natural or Artificial Opening (ICD-10-PCS; 2017-02-26)
PROC: 5A1945Z Respiratory Ventilation, 24-96 Consecutive Hours (ICD-10-PCS; 2017-02-26)
PROC: 0UT10ZZ Resection of Left Ovary, Open Approach (ICD-10-PCS; 2017-02-26)
PROC: 0TBB0ZZ Excision of Bladder, Open Approach (ICD-10-PCS; 2017-02-26)
PROC: 02HV33Z Insertion of Infusion Device into Superior Vena Cava, Percutaneous Approach (ICD-10-PCS; 2017-02-26)
PROC: 30233N1 Transfusion of Nonautologous Red Blood Cells into Peripheral Vein, Percutaneous Approach (ICD-10-PCS; 2017-02-28)
DX: A41.51 Sepsis due to Escherichia coli [E. coli] (principal); R65.21 Severe sepsis with septic shock; J95.821 Acute postprocedural respiratory failure; I47.2 Ventricular tachycardia; I82.411 Acute embolism and thrombosis of right femoral vein; N17.9 Acute kidney failure, unspecified; L89.310 Pressure ulcer of right buttock, unstageable; E87.0 Hyperosmolality and hypernatremia; D62 Acute posthemorrhagic anemia; E83.42 Hypomagnesemia; K92.2 Gastrointestinal hemorrhage, unspecified; K57.20 Diverticulitis of large intestine with perforation and abscess without bleeding; E87.2 Acidosis; N32.1 Vesicointestinal fistula; E86.0 Dehydration; D47.3 Essential (hemorrhagic) thrombocythemia; D50.9 Iron deficiency anemia, unspecified; R63.4 Abnormal weight loss; Z68.23 Body mass index [BMI] 23.0-23.9, adult; B96.7 Clostridium perfringens [C. perfringens] as the cause of diseases classified elsewhere; D22.5 Melanocytic nevi of trunk; E87.6 Hypokalemia; M19.90 Unspecified osteoarthritis, unspecified site; N30.90 Cystitis, unspecified without hematuria; Z66 Do not resuscitate
CPT/HCPCS: 2NBSP; 84133; 84300; 87075; CCU; ERO; 36415; 71045; 74176; 74177; 81001; 82436; 82570; 86920; 87040; 87070; 87071; 87086; 87088; 88305; 88307; 93005; 93010; 93306; 93970; 94799; 96361; 96374; 96375; 97110-GO; 97112-GO; 97161-GP; 97530-GO; J0131; J0696; J1100; J1160; J1450; J1644; J1940; J2060; J2270; J2405; J3101; J3250; J7040; J7060; P9016; P9047

== ENCOUNTER 2017-07-07 07:00 | Inpatient (IN) | payer OTHER, MEDICARE ==
[~2017-07-07] VITALS: Ht 167.6 cm; Wt 61.2 kg
[~2017-07-07 07:00] MED LIST changes: +ELIQUIS5 M1 PO; +FUROSEMIDE20 M1 PO; +FUROSEMIDE40 M1 PO; +PANTOPRAZOLE SO20 M1 PO; +POTASSIUM CHLO20 ME2 PO
[2017-08-20] MEDS ORDERED: ADVIL200 M1 PO (17:46)
[2017-08-20] MEDS ORDERED: LASIX40 M1 PO (17:59)
--- NOTE | 2017-08-22 09:40 | History & Physical Pre-Op ---
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 She underwent Allen's procedure for diverticulitis with colovesical fistula in February 2017. Since then she has convalesced well and is near her baseline. She was seen by her urologist who performed cystoscopy. Bladder is well healed. Allergies/Medications Allergies: Coded Allergies: shrimp (Severe, SEVERE HIVES 12/29/16) codeine (MAY BE ALLERGIC - RASH BUT COULD HAVE BEEN FROM FISH 08/20/17) Home Med list Apixaban (Eliquis) 5 MG TABLET 5 MG PO BID dvt Furosemide (Lasix) 40 MG TABLET 1 TAB PO DAILY DIURETIC (Reported) Ibuprofen (Advil) 200 MG CAPSULE 2 CAP PO BID ARTHRITIS (Reported) Pantoprazole Sodium 20 MG TABLET.DR 1 TAB PO DAILY GI Potassium Chloride 20 MEQ TAB.ER.PRT 1 TAB PO DAILY POTASSIUM Past History Medical History Neurological: NONE EENT: NONE Cardiovascular: NONE Respiratory: NONE Gastrointestinal: NONE Hepatic: NONE Renal: NONE Musculoskeletal: osteoarthritis Psychiatric: NONE Endocrine: NONE Blood Disorders: DVT Cancer(s): NONE OPS MANAGER/Reproductive: NONE History of MRSA: No History of VRE: No History of CDIFF: No Surgical History Pertinent Surgical History: colon resection (with colostomy) Past Family/Social History Family History Relations & Conditions if any MOTHER (abd aortic aneyrsm). Psychosocial History Who Do You Live With? self Services at Home None Primary Language: Vincentian Functional Ability ADLs Independent: dressing, eating, toileting, bathing. Ambulation: cane IADLs Independent: shopping, housework, finances, food prep, telephone, transportation , medication admin. Review of Systems Review of Systems: Patient reports exercise intolerance but reports no fatigue, no fever, no night sweats, no significant weight gain, and no significant weight loss. She reports arthralgias/joint pain (bilateral knee) but reports no muscle aches, no muscle weakness, and no back pain. She reports no abnormal moles, no jaundice, no hives , no eczema, and no rashes. She reports no swollen glands and no neck stiffness. She reports no cough, no wheezing, no shortness of breath, and no coughing up blood. She reports no chest pain, no arm pain on exertion, no shortness of breath when walking, no shortness of breath when lying down, no palpitations, and no leg swelling. She reports no abdominal pain, no vomiting, no vomiting blood, normal appetite, no diarrhea, no constipation, no rectal bleeding, and no history of GERD. She reports no incontinence, no difficulty urinating, no hematuria, and no increased frequency. She reports no gynecologic complaints. She reports no issues with sexual function or body image. Exam & Diagnostic Data Physical Exam: Patient is a 71-year-old female. Constitutional: General Appearance: healthy-appearing, well-nourished, and well- developed. Level of Distress: no acute distress. Ambulation: ambulation with walker. Head: Head: normocephalic and atraumatic. Neck: Neck: supple, trachea midline, no masses, and full range of motion. Thyroid: no enlargement or nodules and non-tender. Lymph Nodes: no cervical LAD, supraclavicular LAD, axillary LAD, or inguinal LAD. Cardiovascular: Heart Auscultation: normal S1 and S2; no murmurs, rubs, or gallops; and regular rate and rhythm. Lungs: Respiratory effort: no dyspnea. Percussion: no dullness, flatness, or hyperresonance. Auscultation: no wheezing, rales/crackles, or rhonchi and breath sounds normal, good air movement, and clear to auscultation. Back: Thoracolumbar Appearance: normal curvature. Abdomen: Inspection and Palpation: no tenderness, guarding, masses, rebound tenderness, or CVA tenderness and soft and non-distended. Bowel Sounds: normal. Liver: non-tender and no hepatomegaly. Spleen: non-tender and no splenomegaly. Hernia: none palpable; functioning stoma LLQ. Skin: Inspection and palpation: no rash, lesions, ulcer, induration, nodules, jaundice, or abnormal nevi and good turgor. Musculoskeletal:: Extremities: no cyanosis, varicosities, or palpable cord and edema. Motor Strength and Tone: normal tone and motor strength. Joints, Bones, and Muscles: no contractures, malalignment, tenderness, or bony abnormalities and normal movement of all extremities. 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 Diverticulitis of sigmoid colon - Patient recovered well since surgery. Plan for laparoscopic colostomy reversal. She will see her primary care physician for preop evaluation. K57.32: Diverticulitis of large intestine without perforation or abscess without bleeding Discussion Notes Discussed the risk of surgery including but not limited to: bleeding requiring transfusion, infection, anastomotic leak requiring reoperation as well as medical complications including cardiac, pulmonary and thromboembolism. As Ranked By This Provider Problem List: 1. Colovesical fistula 2. Colostomy in place
[2017-08-23 10:13] LABS: ABSOLUTE BASOPHIL COUNT 0 /CUMM (0.0-0.2); ABSOLUTE EOSINOPHIL COUNT 0.1 /CUMM (0.0-0.7); ABSOLUTE GRANULOCYTE CT 7.5 /CUMM (1.4-6.5); ABSOLUTE MONOCYTE COUNT 0.4 /CUMM (0.10-0.60); BASOPHIL % 0.4 % (0.0-2.0); EOSINOPHIL % 0.7 % (0-5); HEMATOCRIT 34.4 % (37-47); MEAN CORPUSCULAR HGB 29.5 PG (27.0-31.0); MEAN CORPUSCULAR HGB CONC 33.1 G/DL (33.0-37.0); MEAN CORPUSCULAR VOLUME 89.2 FL (81.0-99.0); PLATELET COUNT 411 /CUMM (130-400); RBC DISTRIBUTION WIDTH 13.9 % (11.5-14.5); RED BLOOD CELL CT 3.85 /CUMM (4.20-5.40); WHITE BLOOD CELL COUNT 9.1 /CUMM (4.8-10.8)
--- NOTE | 2017-08-23 19:35 | Operative Report ---
Operative/Inv Procedure Report Surgery Date: 08/23/17 Name of Procedure: Robotic assisted laparoscopic colostomy reversal Pre-Operative Diagnosis: Colovesical fistula status post Allen's procedure Post-Operative Diagnosis: Same Estimated Blood Loss: 50ml to 100ml Surgeon/Sand Slinger Operator: Reynaldo ROTH,Jacob Yarbrough/Yobany HA Anesthesia: general endotracheal tube Specimens: Colostomy Operative Indication: 71-year-old woman who had previous Allen's procedure for colovesical fistula from diverticulitis with severe sepsis. She has successfully convalesced over the past 6 months, undergone cardiac workup and is now cleared to have her stoma reversed. Operative/Procedure Note Note: After consent is brought to the operating room laid supine. General anesthesia was obtained and she is placed in lithotomy position. Her abdomen was then prepped and draped. Pneumoperitoneum was achieved through a left upper quadrant varies needle. An 8 mm port was then placed in the right midabdomen after local anesthesia was instilled. The camera was entered into the abdominal cavity. There were diffuse adhesions throughout the abdominal cavity. We placed in 8 mm port in the left epigastric region and another 8 mm port in the right upper quadrant. The robot was docked and instruments placed. We began by taking down the adhesions to the anterior abdominal wall with scissor cautery. There were diffuse in nature composed of small bowel. We then dissected the adhesions off the bilateral pelvic sidewall and up and around the stoma. This portion of the operation was quite tedious as there were small bowel loops adhered to most of the peritoneal surfaces. It took approximately 2 hours of lysis of adhesions which also included lysing the adhesions of small bowel to rectal stump. We then able to bring the small bowel up into the right upper quadrant. The stoma was relatively free we took down some adhesions laterally. The splenic flexure had been taken down previously so I did not attempt to do anymore there. I then broke scrub and we took down the stoma by taking an ellipse of skin around it. Subcu tissues were dissected with cautery. The stone was brought up into the wound and pursestring attached. The stoma was sharply excised and passed off the field. The colon was diminutive in size. I could only accept a 25 mm dilator. We placed the EEA anvil in and tied the suture down the left colon and was then dropped back in the perineal cavity. The fascia was closed with a running 0 Maxon suture. We then went back and laparoscopically, without the robot. Is quite clear that the left colon was not nearly as long as I thought. Despite taking down the splenic flexure adhesions had reformed and these were then taken down laparoscopically with cautery. This again was quite tedious and we dissected both laterally and medially to free up the colon enough so that it could go over the pelvic brim. We then freed up the rectal stump so it could become proximal. At this point. We had adequate length. I then went down below and performed EEA anastomosis under direct vision of the camera. Testing the anastomosis underwater revealed an air leak anteriorly. Looking at the donuts there was incomplete donut on the left colon and. We then redox that robot and I repaired the hole which was quite visible with 2 layers of running 3 -0 Vicryl suture. I then went back down below and tested the anastomosis underwater. There is no air leaks. Of note patient had a moderate sized anal fissure that she neglected to tell me. There was some bleeding from it during our EEA anastomosis. It ceased prior to the conclusion of the operation. We then undocked the robot and closed the skin incisions with mt. Sterile dressings were applied. Sponge and needle counts are correct CC: Swathi ROTH,Alexei
--- NOTE | 2017-08-23 19:41 | Admission Core Measures ---
Acute Coronary Syndrome (CM) ACS Core Measures Acute Coronary Syndrome Diagnosis No Congestive Heart Failure (NEW) CHF Core Measures Congestive Heart Failure Diagnosis No Cerebrovascular Accident CVA Core Measures CVA/TIA Diagnosis No Venous Thromboembolism VTE Core Griffin (View Protocol) VTE Risk Factors Surgery No Mechanical VTE Prophylaxis d/t N/A MechProphylax Ordered No VTE Pharm Prophylaxis d/t NA PharmProphylax ordered Problem List As ranked by this Provider includes Assessment & Plan 1. Status post Rodri procedure HOME MEDS Home Med List Apixaban (Eliquis) 5 MG TABLET 5 MG PO BID dvt Furosemide (Lasix) 40 MG TABLET 1 TAB PO DAILY DIURETIC (Reported) Ibuprofen (Advil) 200 MG CAPSULE 2 CAP PO BID ARTHRITIS (Reported) Pantoprazole Sodium 20 MG TABLET.DR 1 TAB PO DAILY GI Potassium Chloride 20 MEQ TAB.ER.PRT 1 TAB PO DAILY POTASSIUM
[2017-08-23 22:00] VITALS: BP 154/82
--- NOTE | 2017-08-23 23:18 | PN- General Surgery ---
Subjective Subjective: poc s/p robotic colostomy reversal resting comfortably denies cp, sob, no n+v Objective Vital Signs and I&Os Intake & Output 08/23 1600 08/23 0800 08/23 0000 08/22 1600 08/22 0800 08/22 0000 Intake Total Output Total Balance Patient 133 lb Weight Physical Exam: cv: rrr lungs: clear abd: soft, flat drsgs dry intact expected tenderness to palp ext: warm, distal cmsintact Assessment/Plan Assessment/Plan surgical stable plan eras entereg clrs in am iglesias overnight Core Measures Venous Thromboembolism VTE Risk Factors Surgery No Mechanical VTE Prophylaxis d/t N/A MechProphylax Ordered No VTE Pharm Prophylaxis d/t NA PharmProphylax ordered
[2017-08-24 06:00] VITALS: BP 96/53
--- NOTE | 2017-08-24 07:44 | PN- General Surgery ---
See Addendum Subjective Subjective: Patient slept well overnight, she has mild pain. She denies any nausea vomiting , there is no flatus. She is in good spirits. Objective Vital Signs and I&Os Vital Signs Date Time Temp Pulse Resp B/P B/P Pulse O2 O2 Flow FiO2 Mean Ox Delivery Rate 08/23 2200 97.9 75 16 154/82 Room Air Intake & Output 08/24 0808/24 0000 08/23 1600 08/23 0800 08/23 0000 08/22 1600 Intake Total 840 Output Total Balance 840 Intake, IV 600 Intake, Oral 240 Patient 135 lb 133 lb Weight Physical Exam: Well-developed well-nourished no apparent distress. HEENT: Atraumatic, extraocular motion intact Neck: Supple, no lymphadenopathy Respiratory: No respiratory distress Abdomen: Mild amount of bloody staining noted central abdominal dressing. Other sites clean dry and intact. Minimal abdominal distention. Faint bowel sounds. Appropriate abdominal tenderness. No tympany, no peritoneal signs Extremities: No edema, no calf pain Neuro: Alert and oriented x3 Psych: Mood affect normal, normal memory normal judgment. Skin: Warm and dry, no rash on exposed skin Results Last 48 Hours of Labs: Laboratory Tests 08/24 08/23 0643 0947 Chemistry Sodium (137 - 145 mmol/L) Pending 144 Potassium (3.5 - 5.1 mmol/L) Pending 4.8 Chloride (98 - 107 mmol/L) Pending 105 Carbon Dioxide (22 - 30 mmol/L) Pending 26 Anion Gap (5 - 16) Pending 13 BUN (7 - 17 mg/dL) Pending 16 Creatinine (0.5 - 1.0 mg/dL) Pending 0.8 Estimated GFR (>60 ml/min) > 60 BUN/Creatinine Ratio (7 - 25 %) Pending 20.0 Glucose (65 - 99 mg/dL) 96 Calcium (8.4 - 10.2 mg/dL) 10.2 Hematology CBC w Diff Pending NO MAN DIFF REQ WBC (4.8 - 10.8 /CUMM) Pending 9.1 RBC (4.20 - 5.40 /CUMM) Pending 3.85 L Hgb (12.0 - 16.0 G/DL) Pending 11.4 L Hct (37 - 47 %) Pending 34.4 L MCV (81.0 - 99.0 FL) Pending 89.2 MCH (27.0 - 31.0 PG) Pending 29.5 MCHC (33.0 - 37.0 G/DL) Pending 33.1 RDW (11.5 - 14.5 %) Pending 13.9 Plt Count (130 - 400 /CUMM) Pending 411 H MPV (7.4 - 10.4 FL) Pending 8.0 Gran % (42.2 - 75.2 %) 83.0 H Lymphocytes % (20.5 - 51.1 %) 11.5 L Monocytes % (1.7 - 9.3 %) 4.4 Eosinophils % (0 - 5 %) 0.7 Basophils % (0.0 - 2.0 %) 0.4 Absolute Granulocytes (1.4 - 6.5 /CUMM) 7.5 H Absolute Lymphocytes (1.2 - 3.4 /CUMM) 1.0 L Absolute Monocytes (0.10 - 0.60 /CUMM) 0.4 Absolute Eosinophils (0.0 - 0.7 /CUMM) 0.1 Absolute Basophils (0.0 - 0.2 /CUMM) 0 Assessment/Plan Assessment/Plan Postop day #1 status post robotic assisted laparoscopic colostomy reversal secondary to Colovesical fistula status post Allen's procedure from diverticulitis ERAS protocol Perioperative antibiotics completed Clear liquid diet IV fluids Entereg until bowel movement Out of bed, ambulate Incentive spirometer DVT prophylaxis with heparin subcu and alps IV Protonix Gabapentin Advance diet as tolerated Dressing change postop day 2 Follow am Labs DC iglesias Hold Eliquis for immediate post op period. (hx dvt) Core Measures Venous Thromboembolism VTE Risk Factors Surgery No Mechanical VTE Prophylaxis d/t N/A MechProphylax Ordered No VTE Pharm Prophylaxis d/t NA PharmProphylax ordered
[2017-08-24 08:44] LABS: ABSOLUTE BASOPHIL COUNT 0 /CUMM (0.0-0.2); ABSOLUTE EOSINOPHIL COUNT 0 /CUMM (0.0-0.7); ABSOLUTE GRANULOCYTE CT 10.4 /CUMM (1.4-6.5); ABSOLUTE LYMPH COUNT 1.1 /CUMM (1.2-3.4); ABSOLUTE MONOCYTE COUNT 1.2 /CUMM (0.10-0.60); BASOPHIL % 0.2 % (0.0-2.0); EOSINOPHIL % 0 % (0-5); GRANULOCYTE % 81.8 % (42.2-75.2); HEMATOCRIT 29.7 % (37-47); MEAN CORPUSCULAR HGB CONC 32.2 G/DL (33.0-37.0); MEAN CORPUSCULAR VOLUME 90.2 FL (81.0-99.0); MEAN PLATELET VOLUME 8.8 FL (7.4-10.4); PLATELET COUNT 319 /CUMM (130-400); RBC DISTRIBUTION WIDTH 14.1 % (11.5-14.5); RED BLOOD CELL CT 3.29 /CUMM (4.20-5.40); WHITE BLOOD CELL COUNT 12.8 /CUMM (4.8-10.8)
[2017-08-24 14:36] VITALS: BP 104/50
[2017-08-24 22:00] VITALS: BP 108/58
[2017-08-24 22:43] VITALS: BP 98/50
[2017-08-25 00:15] VITALS: BP 110/60
--- NOTE | 2017-08-25 07:01 | PN- Student ---
See Addendum Prema Hutson 08/25/17 0647: Subjective Subjective: Pt is feeling very good this morning, better than she expected even. Pt did have an episode of 8/10 abdominal pain last night requiring some tramadol, but otherwise her pain has been well controlled. Pt has been able to pass flatus, no bm yet but states she has the urge. Pt feels hungry this morning and is hoping for full diet. She denies any n/v, fever, chills, sob, chest pain. Objective Objective: Intake & Output 08/25 0800 08/25 0000 08/24 1600 Intake Total 900 720 Output Total 700 450 Balance 200 270 Intake, IV 600 600 Intake, Oral 300 120 Output, Urine 700 450 Laboratory Tests 08/25 636 Chemistry Sodium Pending Potassium Pending Chloride Pending Carbon Dioxide Pending Anion Gap Pending BUN Pending Creatinine Pending BUN/Creatinine Ratio Pending Hematology CBC w Diff Pending WBC Pending RBC Pending Hgb Pending Hct Pending MCV Pending MCH Pending MCHC Pending RDW Pending Plt Count Pending MPV Pending Physical exam: Gen: O&Ax3, laying in bed, in no apparent distress HEENT: PERRL, oral mucosa clear and moist Lungs: CTA throuhgout Heart: S1 and S2 normal, RRR Abd: soft, nontender, normoactive bs, port sites covered wtih bandaids, clear, no drainage, dry. Gauze pad over LLQ d/t some drainage yesterday, today it is clear/dry/intact today. LE: no edema, ALPS in place Results Results: Laboratory Tests 08/25/17636: Sodium Pending, Potassium Pending, Chloride Pending, Carbon Dioxide Pending, Anion Gap Pending, BUN Pending, Creatinine Pending, BUN/Creatinine Ratio Pending , CBC w Diff Pending, WBC Pending, RBC Pending, Hgb Pending, Hct Pending, MCV Pending, MCH Pending, MCHC Pending, RDW Pending, Plt Count Pending, MPV Pending 08/24/17 0643: Anion Gap 9, Estimated GFR > 60, BUN/Creatinine Ratio 20.0, CBC w Diff NO MAN DIFF REQ, RBC 3.29 L, MCV 90.2, MCH 29.0, MCHC 32.2 L, RDW 14.1, MPV 8.8, Gran % 81.8 H, Lymphocytes % 8.6 L, Monocytes % 9.4 H, Eosinophils % 0, Basophils % 0.2, Absolute Granulocytes 10.4 H, Absolute Lymphocytes 1.1 L, Absolute Monocytes 1.2 H, Absolute Eosinophils 0, Absolute Basophils 0 08/23/17 0947: Anion Gap 13, Estimated GFR > 60, BUN/Creatinine Ratio 20.0, Glucose 96, Calcium 10.2, CBC w Diff NO MAN DIFF REQ, RBC 3.85 L, MCV 89.2, MCH 29.5, MCHC 33.1, RDW 13.9, MPV 8.0, Gran % 83.0 H, Lymphocytes % 11.5 L, Monocytes % 4.4, Eosinophils % 0.7, Basophils % 0.4, Absolute Granulocytes 7.5 H, Absolute Lymphocytes 1.0 L, Absolute Monocytes 0.4, Absolute Eosinophils 0.1, Absolute Basophils 0 Microbiology 08/23 1320 URINE ROUT: Urine Culture - RES Assessment/Plan Assessment: Pt is a 71 yo female POD 2 s/p colostomy reversal s/p swapna's procedure for diverticulitis. Plan: -Entereg until BM -ALPs, sq heparin for DVT prophylaxis -Pete out, adequate urine output over last 24 hours -H&H still pending this morning, if stable, will restart eliquis -Advanced to full diet this AM -Protonix for GI ppx -C/w scheduled oxycodone and tramadol for breakthrough pain, well controlled at this time -encrouage oob, ambulation, IS, po fluid intake Jose Marcos 08/25/17 0855: Subjective Subjective: doing well tolerating full liquid +bm this am hungry plan advance diet per atrtending d/c entereg
[2017-08-25 07:04] VITALS: BP 100/70; BP 110/64
[2017-08-25 07:51] LABS: ABSOLUTE BASOPHIL COUNT 0 /CUMM (0.0-0.2); ABSOLUTE EOSINOPHIL COUNT 0.2 /CUMM (0.0-0.7); ABSOLUTE GRANULOCYTE CT 7.9 /CUMM (1.4-6.5); ABSOLUTE LYMPH COUNT 1.2 /CUMM (1.2-3.4); ABSOLUTE MONOCYTE COUNT 0.6 /CUMM (0.10-0.60); BASOPHIL % 0.4 % (0.0-2.0); EOSINOPHIL % 1.6 % (0-5); GRANULOCYTE % 79.6 % (42.2-75.2); HEMATOCRIT 29.1 % (37-47); MEAN CORPUSCULAR HGB 29.6 PG (27.0-31.0); MEAN CORPUSCULAR VOLUME 89.8 FL (81.0-99.0); MEAN PLATELET VOLUME 8.8 FL (7.4-10.4); PLATELET COUNT 287 /CUMM (130-400); RBC DISTRIBUTION WIDTH 14.4 % (11.5-14.5); RED BLOOD CELL CT 3.24 /CUMM (4.20-5.40); WHITE BLOOD CELL COUNT 9.9 /CUMM (4.8-10.8)
[2017-08-25 15:10] VITALS: BP 110/58
--- NOTE | 2017-08-25 21:30 | Patient Discharge Instructions ---
Discharge Instructions General Discharge Information You were seen/treated for: Colovesical fistula status post Allen's procedure You had these procedures: Surgery Date: 08/23/17 Name of Procedure: Robotic assisted laparoscopic colostomy reversal Watch for these problems: fever>101.3, increased pain, redness/swelling/drainage, dizziness, shortness of breath, chest pains, nausea/vomiting Call Surgeon to remove: Markle Do not soak the wound: No No bath, but you may shower: Yes Other wound care: keep incisions clean & dry. dry guaze dressing changes as needed. staple removal around post-op day#14 Diet Continue normal diet: Yes Recommended Diet: Low Residue Activity Full Activity/No Limits: No Activity Self Limited: Yes Pounds, do NOT lift more than: 10 Other activity limits: no heavy lifting. no strenuous activity. Acute Coronary Syndrome Inclusion Criteria At DC or during hospital stay patient has or had the following: ACS DIAGNOSIS No Discharge Core Measures Meds if any: Prescribed or Continued at Discharge Meds if any: NOT Prescribed or Continued at Discharge Congestive Heart Failure Inclusion Criteria At DC or during hospital stay patient has or had the following: CHF DIAGNOSIS No Discharge Core Measures Meds if any: Prescribed or Continued at Discharge Meds if any: NOT Prescribed or Continued at Discharge Cerebrovascular accident Inclusion Criteria At DC or during hospital stay patient has or had the following: CVA/TIA Diagnosis No Discharge Core Measures Meds if any: Prescribed or Continued at Discharge Meds if any: NOT Prescribed or Continued at Discharge Venous thromboembolism Inclusion Criteria VTE Diagnosis No VTE Type NONE VTE Confirmed by (Test) NONE Discharge Core Measures - Per Current guidelines, there needs to be overlap - treatment for the first 5 days of Warfarin therapy. - If discharged on Warfarin prior to 5 days of - overlap therapy, the patient will need to be - assessed for post discharge needs including - *Post discharge parental anticoagulation - *Warfarin and/or parental anticoagulation education - *Follow up date to check INR post discharge At least 5 days overlap therapy as Inpatient No Meds if any: Prescribed or Continued at Discharge Note: Overlap Therapy is Warfarin and Anticoagulant Meds if any: NOT Prescribed or Continued at Discharge
[2017-08-25 23:15] VITALS: BP 130/80
[2017-08-26 02:22] LABS: PTT 96 SEC (25-37)
[2017-08-26 07:38] VITALS: BP 131/68
[2017-08-26 10:29] LABS: PTT 36 SEC (25-37)
--- NOTE | 2017-08-26 10:57 | PN- General Surgery ---
See Addendum Subjective Subjective: Continues to improve, pain better today, had small brown partially formed bowel movement. No fever no flulike illness. Objective Vital Signs and I&Os Vital Signs Date Time Temp Pulse Resp B/P B/P Pulse O2 O2 Flow FiO2 Mean Ox Delivery Rate 08/26 0738 99.6 74 18 131/68 99 08/25 2315 98.4 82 16 130/80 96 08/25 1600 97 Nasal 1.0L Cannula 08/25 1510 97.6 72 20 110/58 100 Room Air Intake & Output 08/26 1600 08/26 0800 08/26 0000 08/25 1600 08/25 0808/25 0000 Intake Total 400 300 840 900 Output Total 550 476 355 4503 700 Balance -150 -500 -200 -260 200 Intake, IV 160 600 600 Intake, Oral 240 300 240 300 Number 1 1 Bowel Movements Output, Urine 550 071 170 9752 700 Physical Exam: Well-developed well-nourished no apparent distress. HEENT: Atraumatic, extraocular motion intact Neck: Supple, no lymphadenopathy Respiratory: No respiratory distress Abdomen: Dressing changed, packing in place, partially advanced, dry sterile dressing applied, no signs of infection. Abdomen with minimal distention, positive bowel sounds, port sites clean dry and intact, mild tenderness lower abdomen Extremities: No edema, no calf pain Neuro: Alert and oriented x3 Psych: Mood affect normal, normal memory normal judgment. Skin: Warm and dry, no rash on exposed skin Results Last 48 Hours of Labs: Laboratory Tests 08/26 08/26 08/25 0940 0100 0637 Chemistry Sodium (137 - 145 mmol/L) 140 Potassium (3.5 - 5.1 mmol/L) 4.1 Chloride (98 - 107 mmol/L) 108 H Carbon Dioxide (22 - 30 mmol/L) 24 Anion Gap (5 - 16) 7 BUN (7 - 17 mg/dL) 16 Creatinine (0.5 - 1.0 mg/dL) 0.8 Estimated GFR (>60 ml/min) > 60 BUN/Creatinine Ratio (7 - 25 %) 20.0 Coagulation APTT (25 - 37 SEC) 36 96 H Hematology CBC w Diff NO MAN DIFF REQ WBC (4.8 - 10.8 /CUMM) 9.9 RBC (4.20 - 5.40 /CUMM) 3.24 L Hgb (12.0 - 16.0 G/DL) 9.6 L Hct (37 - 47 %) 29.1 L MCV (81.0 - 99.0 FL) 89.8 MCH (27.0 - 31.0 PG) 29.6 MCHC (33.0 - 37.0 G/DL) 33.0 RDW (11.5 - 14.5 %) 14.4 Plt Count (130 - 400 /CUMM) 287 MPV (7.4 - 10.4 FL) 8.8 Gran % (42.2 - 75.2 %) 79.6 H Lymphocytes % (20.5 - 51.1 %) 11.9 L Monocytes % (1.7 - 9.3 %) 6.5 Eosinophils % (0 - 5 %) 1.6 Basophils % (0.0 - 2.0 %) 0.4 Absolute Granulocytes (1.4 - 6.5 /CUMM) 7.9 H Absolute Lymphocytes (1.2 - 3.4 /CUMM) 1.2 Absolute Monocytes (0.10 - 0.60 /CUMM) 0.6 Absolute Eosinophils (0.0 - 0.7 /CUMM) 0.2 Absolute Basophils (0.0 - 0.2 /CUMM) 0 Assessment/Plan Assessment/Plan Pt is a 71 yo female POD 3 s/p colostomy reversal s/p swapna's procedure for diverticulitis. -Surgically stable, continues to improve -Heparin drip for history of DVT, transition to Eliquis upon DC -Alps for DVT prophylaxis -Continue low residue diet -Protonix for GI ppx -Pain medication as needed -encrouage oob, ambulation, IS, po fluid intake -Plan for discharge tomorrow to home with VNA services Core Measures Venous Thromboembolism VTE Risk Factors Surgery No Mechanical VTE Prophylaxis d/t N/A MechProphylax Ordered No VTE Pharm Prophylaxis d/t NA PharmProphylax ordered
[2017-08-26 14:58] VITALS: BP 126/58
[2017-08-26 18:55] LABS: PTT 66 SEC (25-37)
[2017-08-26 21:07] VITALS: BP 148/70
[2017-08-27 07:10] VITALS: BP 125/70
--- NOTE | 2017-08-27 07:29 | PN- General Surgery ---
Yasemin Hess 08/27/17 0725: Subjective Subjective: Patient alert sitting iin bed without complaints, comfortable, pleasent Objective Vital Signs and I&Os Vital Signs Date Time Temp Pulse Resp B/P B/P Pulse O2 O2 Flow FiO2 Mean Ox Delivery Rate 08/27 0710 99.0 79 18 125/70 97 08/26 2107 98.6 94 18 148/70 97 Room Air 08/26 1458 98.6 96 20 126/58 95 Room Air 08/26 0738 99.6 74 18 131/68 99 Intake & Output 08/27 0800 08/27 0000 08/26 1600 08/26 0800 08/26 0000 08/25 1600 Intake Total 120 218 770 400 300 Output Total 700 600 350 550 500 500 Balance -580 -382 420 -150 -500 -200 Intake, IV 98 150 160 Intake, Oral 120 120 620 240 300 Number 1 1 1 Bowel Movements Output, Urine 700 600 350 550 500 500 Patient 135 lb Weight Physical Exam: VSS, afebrile chest- CTA symmetric heart- RRR without MRG Abd -small blister without erythema right aspect of abdomen -explained local wound care to patient open surgical wound - packing changes with scant bloody drainage- no purulent drainage, no surrounding cellulis abd -soft without distention, pos BS Assessment/Plan Assessment/Plan Pt is a 71 yo female POD 4 s/p colostomy reversal s/p swapna's procedure for diverticulitis. D/C today -Surgically stable, continues to improve will need VNA services for dressing changes -packing W10 complete started on eliquis 5mg BID today Core Measures Venous Thromboembolism VTE Risk Factors Surgery No Mechanical VTE Prophylaxis d/t N/A MechProphylax Ordered No VTE Pharm Prophylaxis d/t NA PharmProphylax ordered Jacob Jacobs MD 08/27/17 1132: Attending MD Review Statement Attending Statement Attending MD Statement: examined this patient Attending Assessment/Plan: agree d/c home. eliquis. vna for wound cares.
--- NOTE | 2017-08-27 07:33 | Surgical Discharge Summary ---
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 Psychosocial History Where Do You Live? Home Who Do You Live With? Sister Services at Home: None What is Your Primary Language? Amharic Review of Systems: SEE Hospital Course Course Attending Physician: Jacob Jacobs MD Primary Care Physician: Swathi ROTH,[facility] Course: Pt is a 71 yo female underwent colostomy reversal s/p swapna's procedure for diverticulitis. She tolarated the procedure well without complications. Throughout her hospital course her VS have remained stable and she has been afebrile. Prior history of DVT for which heparin drip was substituted while hospitalized. Heparin drip has been stopped and she has been started back on eliquis without incident. She is able to tolarated POs, voids, and has loose BMs. She is discharged home with VNA services for dressing changes Complications: none Allergies: Coded Allergies: shrimp (Severe, SEVERE HIVES 12/29/16) codeine (MAY BE ALLERGIC - RASH BUT COULD HAVE BEEN FROM FISH 08/20/17) Significant Procedures: 08/23/2017 lap ROBOTIC colostomy reversal Pertinent Lab Results: nnone Disposition Summary Disposition Principal Diagnosis: DIVERTICULTIS S/P HARTMANS PROCEDURE Additional Diagnosis: DVT Discharge Disposition: home health services Discharge Instructions General Discharge Information Code Status: Full Code Patient's Diet: low residual diet Patient's Activity: ad jeff Follow-Up Instructions/Appts: with Dr. Jacobs 7-10 days Medications at Discharge Discharge Medications: Continue taking these medications: Pantoprazole Sodium (Pantoprazole Sodium) 20 MG TABLET. 1 Tablet ORAL DAILY Qty = 30 Comments: Last Taken: 08/27/17 Time: 8:16 AM Apixaban (Eliquis) 5 MG TABLET 5 Milligram ORAL TWICE DAILY Qty = 60 Comments: Last Taken: 7/22/18 Time: 8:19 am Potassium Chloride (Potassium Chloride) 20 MEQ TAB.ER.PRT 1 Tablet ORAL DAILY Qty = 7 Comments: Last Taken: 03/14/17 Time: 1000 Ibuprofen (Advil) 200 MG CAPSULE 2 Capsule ORAL TWICE DAILY Comments: NOT GIVEN IN HOSPITAL Furosemide (Lasix) 40 MG TABLET 1 Tablet ORAL DAILY Comments: NOT GIVEN IN HOSPITAL Start taking the following new medications: Oxycodone HCl/Acetaminophen (Percocet 5-325 MG Tablet) 5 MG-325 MG TABLET 1 Tablet ORAL THREE TIMES DAILY Qty = 15 No Refills Gabapentin (Neurontin) 300 MG CAPSULE 1 Capsule ORAL THREE TIMES DAILY Qty = 30 No Refills Copies To: Swathi ROTH,Alexei
[2017-08-27 09:04] LABS: PTT 44 SEC (25-37)
[2017-08-27] MEDS ORDERED: PERCOCET 5-3251 EACH PO (13:48)
[2017-08-27] MEDS ORDERED: NEURONTIN300 M1 PO (13:51)
== END 2017-08-27 13:50 | disposition home health service (06) | DRG 331 ==
LOC: SDA 08-23 03:16 → 2NB 08-23 03:16 → ENRESERV 08-23 19:50 → ENTRNSPT 08-23 21:05 → EDTRNSPTSTS 08-23 21:13 → 2NB 08-23 21:22 → CMPTRNSPT 08-23 21:32 → ENPENDDIS 08-27 07:33 → ENTRNSPT 08-27 13:15 → EDTRNSPT 08-27 13:32 → EDTRNSPTSTS 08-27 13:32 → 2NB 08-27 13:50 → CMPTRNSPT 08-27 14:08
PROVIDERS: Physician Assistant; Physician Assistant Surgical; Surgery
PROC: 0DN84ZZ Release Small Intestine, Percutaneous Endoscopic Approach (ICD-10-PCS; principal; 2017-08-23)
PROC: 8E0W4CZ Robotic Assisted Procedure of Trunk Region, Percutaneous Endoscopic Approach (ICD-10-PCS; principal; 2017-08-23)
PROC: 0DNW4ZZ Release Peritoneum, Percutaneous Endoscopic Approach (ICD-10-PCS; principal; 2017-08-23)
PROC: 0DBE4ZZ Excision of Large Intestine, Percutaneous Endoscopic Approach (ICD-10-PCS; principal; 2017-08-23)
PROC: 0DNE4ZZ Release Large Intestine, Percutaneous Endoscopic Approach (ICD-10-PCS; principal; 2017-08-23)
DX: Z43.3 Encounter for attention to colostomy (principal); K66.0 Peritoneal adhesions (postprocedural) (postinfection); K60.2 Anal fissure, unspecified; M19.90 Unspecified osteoarthritis, unspecified site; K21.9 Gastro-esophageal reflux disease without esophagitis; Z87.19 Personal history of other diseases of the digestive system; Z86.718 Personal history of other venous thrombosis and embolism; Z91.013 Allergy to seafood; Z88.5 Allergy status to narcotic agent
CPT/HCPCS: 2NBSP; 36415; 36592; 82436; 87086; 88304; 97116-GO; 97161-GP; J0131; J0690; J1100; J1630; J1644; J1885; J2405